=== PATIENT | female | born 2000 | race Caucasian/White ===

== ENCOUNTER 2023-01-23 08:41 | Outpatient (OUT) | payer OTHER, SELFPAY ==
--- NOTE | 2023-01-23 08:50 | US_ITS ---
The [address] [address] Patient Name: RICARDO ATKINS MRN: [id number] date: 2000 Sex: F Assigned Patient Location: US Current Patient Location: US Accession/Order Number: [id number] Exam Date: 01/23/2023 09:00 Report Date: 01/23/2023 10:06 At the request of: EMILIA FISCHER Procedure: US renal BI EXAM: US renal BI HISTORY: Kidney Stone N20.0 COMPARISON: CT abdomen and pelvis 08/26/2022. TECHNIQUE: Real-time ultrasound imaging of the kidneys and bladder. FINDINGS: Unremarkable bladder. The right and left kidneys measure 10.8 and 12.7 cm. There is good corticomedullary differentiation bilaterally. Within the interpolar region of the left kidney there is a 1.2 x 1.5 x 1.4 cm cyst. Nonobstructing stone within the lower pole the left kidney measuring 0.5 x 0.4 x 0.3 cm. No renal collecting system dilatation bilaterally. IMPRESSION: 1. Nonobstructing left renal stone. 2. Left renal cyst. Electronically authenticated by: SUSAN JAIME Date: 01/23/2023 10:06
--- NOTE | 2023-01-23 08:51 | XR_ITS ---
[address] [address] Patient Name: RICARDO ATKINS MRN: [id number] date: 2000 Sex: F Assigned Patient Location: US Current Patient Location: US Accession/Order Number: [id number] Exam Date: 01/23/2023 10:04 Report Date: 01/23/2023 13:27 At the request of: EMILIA FISCHER Procedure: XR abdomen 1V EXAM: XR abdomen 1V HISTORY: Kidney Stone N20.0 COMPARISON: None. TECHNIQUE: AP view of the abdomen. FINDINGS: Nonobstructive bowel gas pattern is noted. There is no suspicious calcification. The osseous structures are intact. IMPRESSION: Nonobstructive bowel gas pattern. Electronically authenticated by: ANDREWS BARAJAS Date: 01/23/2023 13:27
== END 2023-01-23 08:42 ==
LOC: US 08:44
PROVIDERS: PCP Family Medicine; Visit Provider Urology
DX: N20.0 Calculus of kidney (principal)
CPT/HCPCS: 74018; 76775

== ENCOUNTER 2023-03-29 09:09 | Outpatient (OUT) | payer OTHER, SELFPAY ==
[2023-03-29 10:18] LABS: Uric Acid 6.7 mg/dL (2.6-6.0)
[2023-03-30 11:09] LABS: PTH, Intact 89 pg/mL (15-65)
== END 2023-03-29 09:10 | disposition home or self-care (01) ==
LOC: LAB 09:11
PROVIDERS: Visit Provider Urology
DX: N20.0 Calculus of kidney (principal); R31.0 Gross hematuria; N28.1 Cyst of kidney, acquired
CPT/HCPCS: 36415; 83970; 84550

== ENCOUNTER 2023-04-20 09:34 | Outpatient (OUT) | payer OTHER, SELFPAY ==
[2023-04-20 10:42] LABS: Basophils Absolute Auto 0.1 10^3/uL (0.0-0.1); Basophils Percent Auto 1.4 % (0.2-2.0); Eosinophils Absolute Auto 0.2 10^3/uL (0.0-0.7); Eosinophils Percent Auto 5.5 % (0.9-7.0); Hematocrit 35.2 % (36.0-48.0); Hemoglobin 11.7 g/dL (12.0-16.0); Immature Granulocytes Abs Auto 0.01 10^3/uL (0.00-0.03); Immature Granulocytes Pct Auto 0.3 % (0.0-0.5); Lymphocytes Absolute Auto 1.4 10^3/uL (1.2-3.8); Mean Corpuscular HGB Conc 33.2 g/dL (29.9-35.2); Mean Corpuscular Hemoglobin 29.4 pg (26.7-34.0); Mean Corpuscular Volume 88.4 fL (81.0-99.0); Mean Platelet Volume 9.4 fL (9.5-13.5); Monocytes Absolute Auto 0.4 10^3/uL (0.3-0.8); Monocytes Percent Auto 9.9 % (1.7-12.0); Neutrophils Absolute Auto 1.6 10^3/uL (1.4-6.5); Neutrophils Percent Auto 43.9 % (43.0-75.0); Platelet Count 156 10^3/uL (150-450); Red Blood Count 3.98 10^6/uL (4.20-5.40); Red Cell Distribution Width 13.2 % (11.0-15.0); White Blood Count 3.6 10^3/uL (4.0-11.0)
[2023-04-20 11:04] LABS: Estimated Average Glucose 103 mg/dL; Glycohemoglobin A1C 5.2 % (4.5-6.2)
[2023-04-20 11:30] LABS: Alanine Aminotransferase 26 U/L (14-59); Albumin Level 3.7 g/dL (3.4-5.0); Alkaline Phosphatase 101 U/L (46-116); Anion Gap 11.8; Aspartate Amino Transferase 16 U/L (15-37); BUN Creatinine Ratio 19.6; Bilirubin Total 0.5 mg/dL (0.2-1.0); Calcium 9.9 mg/dL (8.5-10.1); Carbon Dioxide 24.3 mmol/L (21.0-32.0); Chloride 104 mmol/L (98-107); Cholesterol 198 mg/dL (<=200); Estimated GFR (African America >60 (>=60); Estimated GFR (Non-African Ame >60 (>=60); Globulin 3.6 g/dL; Glucose 88 mg/dL (74-106); HDL Cholesterol 33 mg/dL (40-60); Potassium 4.1 mmol/L (3.5-5.1); Sodium 136 mmol/L (136-145); Thyroid Stimulating Hormone 4.212 uIU/mL (0.358-3.740); Total Protein 7.3 g/dL (6.4-8.2); Triglycerides 239 mg/dL (<=150); VLDL CHOLESTEROL 47.8 mg/dL
[2023-04-20 12:02] LABS: Free T4 0.87 ng/dL (0.76-1.46)
[2023-04-21 07:08] LABS: HCV Ab Non Reactive (Non Reactive); HIV Ab/p24 Ag Screen Non Reactive (Non Reactive)
== END 2023-04-20 09:35 | disposition home or self-care (01) ==
LOC: LAB 09:36
PROVIDERS: PCP Nurse Practitioner Primary Care; Visit Provider Nurse Practitioner Primary Care
DX: Z00.00 Encounter for general adult medical examination without abnormal findings (principal); Z11.59 Encounter for screening for other viral diseases; Z13.6 Encounter for screening for cardiovascular disorders; Z13.29 Encounter for screening for other suspected endocrine disorder; Z11.4 Encounter for screening for human immunodeficiency virus [HIV]
CPT/HCPCS: 36415; 80053; 80061; 83036; 84439; 84443; 85025; 86803; 87389

== ENCOUNTER 2023-04-29 19:36 | Emergency (ER) | payer OTHER, SELFPAY ==
[2023-04-29 19:53] VITALS: BP 170/95; PULSE 108; RESP 18; TEMP 36.6; O2SAT 97; BMI 42.0
[2023-04-29 20:02] VITALS: PULSE 100
--- NOTE | 2023-04-29 20:05 | XR_ITS ---
The [address] [address] Patient Name: RICARDO ATKINS MRN: [id number] date: 2000 Sex: F Assigned Patient Location: ER Current Patient Location: ER Accession/Order Number: [id number] Exam Date: 04/29/2023 19:55 Report Date: 04/29/2023 21:09 At the request of: AZAEL BATEMAN Procedure: XR foot RT min 3V EXAM: XR ankle RT min 3V, XR foot RT min 3V HISTORY: injury COMPARISON: None. TECHNIQUE: 3 views of the right ankle. 3 views of the right foot. FINDINGS: Overall bony architecture is normal. Ankle mortise relationships are intact. Articulations of the foot are intact. Forefoot soft tissue swelling is noted. XR/XR foot RT min 3V IMPRESSION: No evidence for acute fracture or dislocation. Electronically authenticated by: Alla BRICEÑO Date: 04/29/2023 21:09
--- NOTE | 2023-04-29 20:05 | XR_ITS ---
The [address] [address] Patient Name: RICARDO ATKINS MRN: [id number] date: 2000 Sex: F Assigned Patient Location: ER Current Patient Location: ER Accession/Order Number: [id number] Exam Date: 04/29/2023 19:55 Report Date: 04/29/2023 21:09 At the request of: AZAEL BATEMAN Procedure: XR ankle RT min 3V EXAM: XR ankle RT min 3V, XR foot RT min 3V HISTORY: injury COMPARISON: None. TECHNIQUE: 3 views of the right ankle. 3 views of the right foot. FINDINGS: Overall bony architecture is normal. Ankle mortise relationships are intact. Articulations of the foot are intact. Forefoot soft tissue swelling is noted. XR/XR ankle RT min 3V IMPRESSION: No evidence for acute fracture or dislocation. Electronically authenticated by: Alla BRICEÑO Date: 04/29/2023 21:09
--- NOTE | 2023-04-29 20:06 | ED.LOWEXI1 ---
HPI - Extremity Injury (Lower) General Chief Complaint: Extremity Injury, Lower Stated Complaint: [facility] Lower Extremity Injury Time Seen by Provider: 04/29/23 20:00 Mode of arrival: walk-in History of Present Illness HPI Narrative: patient describes leaning against a table at work. The table move and she fell. She injured her right ankle/foot. states pain comes and goes. She does have lymphedema of the RLE. She experiences pain mainly with weight bearing or ROM. Denies other injury MD complaint: Reports ankle injury and foot injury Related Data Allergies Allergy/AdvReac Type Severity Reaction Status Date / Time No Known Drug Allergies Allergy Verified 04/29/23 19:57 Review of Systems ROS Status of ROS 10 or more systems reviewed and unremarkable except as noted in history and below PFSH PFS Social History Smoking status: Never smoker Exam Constitutional Vital Signs, click to edit/add: Last Vital Signs Temp 98 F 04/29/23 19:53 Pulse 100 H 04/29/23 20:02 Resp 18 04/29/23 19:53 BP 170/95 H 04/29/23 19:53 Pulse Ox 97 04/29/23 19:53 O2 Del Method Room Air 04/29/23 19:53 Common normals: no apparent distress, oriented x3, healthy appearing, alert and well nourished Eye Common normals: PERRL and EOMs intact bilaterally Respiratory Common normals: normal respiratory effort, no retractions and no use of accessory muscles Cardio Common normals: regular rate and regular rhythm Extremity Other: lymphedema RLE. right ankle and foot are nontender. Not discolored. Does have mild pain of the ankle with ROM Neuro Common normals: oriented x3, CN's II-XII intact bilaterally, moves all extremities, no focal motor deficits and no sensory deficits noted Psych Appearance: grossly normal Course Vital Signs Vital signs: Vital Signs Temperature 98 F 04/29/23 19:53 Pulse Rate 108 H 04/29/23 19:53 Respiratory Rate 18 04/29/23 19:53 Blood Pressure 170/95 H 04/29/23 19:53 Pulse Oximetry 97 04/29/23 19:53 Oxygen Delivery Method Room Air 04/29/23 19:53 Temperature 98 F 04/29/23 19:53 Pulse Rate 100 H 04/29/23 20:02 Respiratory Rate 18 04/29/23 19:53 Blood Pressure 170/95 H 04/29/23 19:53 Pulse Oximetry 97 04/29/23 19:53 Oxygen Delivery Method Room Air 04/29/23 19:53 MDM - Extremity Injury (Lower) MDM Narrative Medical decision making narrative: presents after fall at work and injury to her right foot/ankle. No obvious acute swelling. She does have chronic swelling from lymphedema. No discoloration or tenderness. Does have pain with ROM. xrays neg. Patient discharged home with diagnosis of ankle sprain. Minor sprain. can follow up prn Discharge Plan Discharge Chief Complaint: Extremity Injury, Lower Clinical Impression: Ankle sprain and strain Patient Disposition: Home, Self-Care Instructions: Ankle Sprain (ED) Additional Instructions: follow up with Industrial medicine if pain increases. use ibuprofen or similar for pain Stand Alone Forms: Portal Instructions Referrals: MIKAELA MARCH APRN [Primary Care Provider] - 1 week
== END 2023-04-29 22:24 | disposition home or self-care (01) ==
PROVIDERS: Emergency Provider Internal Medicine; PCP Nurse Practitioner Primary Care
DX: S93.401A Sprain of unspecified ligament of right ankle, initial encounter (principal); S96.911A Strain of unspecified muscle and tendon at ankle and foot level, right foot, initial encounter; W19.XXXA Unspecified fall, initial encounter
CPT/HCPCS: 73610; 73630; 99284

== ENCOUNTER 2023-05-09 22:17 | Outpatient (OUT) | payer OTHER, SELFPAY | END 2023-05-09 22:18 | disposition home or self-care (01) | LOC: SLEEP 22:17 | PROVIDERS: PCP Nurse Practitioner Primary Care; Visit Provider Nurse Practitioner Primary Care | DX: G47.33 Obstructive sleep apnea (adult) (pediatric) (principal) | CPT/HCPCS: 95810 ==

== ENCOUNTER 2023-06-07 11:44 | Outpatient (OUT) | payer OTHER, SELFPAY ==
[2023-06-07 13:10] LABS: Calcium Urine Random 24.8 mg/dL (5.1-21.0); Creatinine Urine Random 178.37 mg/dL (20.00-300.00); Sodium Urine Random 181 mmol/L (30-90)
[2023-06-07 13:12] LABS: Calcium 24 Hour Urine 192.2 mg/24hr (100.0-300.0); Sodium 24 Hour Urine 140 mmol/24h (40-220); Total Volume 24 Hour Urine 775 mL/24hr
[2023-06-08 10:12] LABS: Magnesium, U 3.5 mg/dL (Not Estab.); Magnesium,Urine 24hr 27.1 mg/24 hr (12.0-293.0); Phosphorus, Urine 120.4 mg/dL (Not Estab.); Phosphorus,Urine 24h 933 mg/24 hr (261-1078); Uric Acid,Urine 24hr 883.5 mg/24 hr (173.7-902.1)
[2023-06-11 17:08] LABS: Citric Acid, U, 24hr 463 mg/24 hr (320-1240); Citric Acid, Urine 598 mg/L (Undefined)
[2023-06-12 15:09] LABS: Oxalates, Urine 45 mg/L (Undefined); Oxalates, Urine 24hr 35 mg/24 hr (4-31)
== END 2023-06-07 11:45 | disposition home or self-care (01) ==
LOC: LAB 11:44
PROVIDERS: PCP Nurse Practitioner Primary Care; Visit Provider Urology
DX: N20.0 Calculus of kidney (principal)
CPT/HCPCS: 82340; 82507; 82570; 83735; 83945; 84105; 84300; 84560

== ENCOUNTER 2023-06-08 08:33 | Outpatient (OUT) | payer OTHER, SELFPAY ==
[2023-06-08 09:57] LABS: BUN Creatinine Ratio 21.4; Calcium 9.9 mg/dL (8.5-10.1); Carbon Dioxide 25.1 mmol/L (21.0-32.0); Chloride 104 mmol/L (98-107); Estimated GFR (African America >60 (>=60); Estimated GFR (Non-African Ame >60 (>=60); Free T3 3.26 pg/mL (2.18-3.98); Glucose 94 mg/dL (74-106); Potassium 4.1 mmol/L (3.5-5.1); Sodium 138 mmol/L (136-145); Thyroid Stimulating Hormone 8.635 uIU/mL (0.358-3.740)
[2023-06-08 10:24] LABS: Free T4 0.77 ng/dL (0.76-1.46)
[2023-06-09 04:07] LABS: FSH 65.4 mIU/mL (.); Luteinizing Hormone(LH) 22.7 mIU/mL (.); Progesterone 0.2 ng/mL (.); Prolactin 16.2 ng/mL (4.8-23.3)
[2023-06-10 14:07] LABS: ACTH, Plasma 29.1 pg/mL (7.2-63.3)
[2023-06-12 06:18] LABS: IGF-1 194 ng/mL (101-347)
[2023-06-12 12:09] LABS: Anti-Mullerian Hormone (AMH) <0.015 ng/mL (.)
[2023-06-14 01:07] LABS: Estrogens, Total 99 pg/mL (.)
== END 2023-06-08 08:34 | disposition home or self-care (01) ==
LOC: LAB 08:35
PROVIDERS: PCP Nurse Practitioner Primary Care; Visit Provider Internal Medicine
DX: E55.9 Vitamin D deficiency, unspecified (principal); I10 Essential (primary) hypertension; Q96.9 Turner's syndrome, unspecified; E03.9 Hypothyroidism, unspecified
CPT/HCPCS: 36415; 80048; 82024; 82306; 82533; 82672; 83001; 83002; 83003; 84144; 84146; 84305; 84439; 84443; 84481; 99999

== ENCOUNTER 2023-06-18 08:46 | Outpatient (OUT) | payer OTHER, SELFPAY ==
--- NOTE | 2023-06-18 08:52 | US_ITS ---
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 COMPARISON: None. TECHNIQUE: Transabdominal scanning was performed FINDINGS: Thinning of the pelvis demonstrates uterus to be anteverted and measures 3.3 x 2.2 x 1.3 cm. Endometrial complex measures 2 mm. Right ovary measures 1 x 1 x 1.6 cm. No masses are noted. Color-flow is noted. Left ovary measure 2 x 1.1 x 1 cm. Color-flow is noted. No masses are noted. No fluid is noted in the cul-de-sac. US/US pelvis IMPRESSION: Normal ultrasound of the pelvis. Electronically authenticated by: MARGARITA GALLOWAY Date: 06/18/2023 09:46
== END 2023-06-18 08:47 | disposition home or self-care (01) ==
LOC: US 08:46
PROVIDERS: PCP Nurse Practitioner Primary Care; Visit Provider Internal Medicine
DX: Q96.9 Turner's syndrome, unspecified (principal); I10 Essential (primary) hypertension; E02 Subclinical iodine-deficiency hypothyroidism
CPT/HCPCS: 76856

== ENCOUNTER 2023-07-21 15:30 | Emergency (ER) | payer OTHER, SELFPAY ==
[2023-07-21 15:35] VITALS: BP 140/91; PULSE 103; RESP 16; TEMP 36.7; O2SAT 100; BMI 41.8
--- NOTE | 2023-07-21 15:46 | ED.GENADUL1 ---
HPI - General Adult General Chief complaint: Wound/Laceration Stated complaint: CUT FINGER Time Seen by Provider: 07/21/23 15:38 Source: patient and family Mode of arrival: walk-in Limitations: no limitations History of Present Illness HPI narrative: 22-year-old female presents with chief complaint of laceration to the distal right thumb. She excellently cut it on a slicer while at work just prior to arrival. No active bleeding. Wound appears superficial. Patient's on known for her last tetanus shot. Related Data Previous Rx's Medication Instructions Recorded cephalexin 500 mg capsule 500 mg PO BID 10 days #20 caps 07/21/23 Allergies Allergy/AdvReac Type Severity Reaction Status Date / Time No Known Drug Allergies Allergy Verified 07/21/23 15:35 Review of Systems ROS Narrative All Systems are negative except as noted/marked.All systems reviewed and otherwise negative PFSH PFS Social History Smoking status: Never smoker Exam Narrative Exam Narrative: Nurses note and vital signs reviewed and patient is not hypoxic. General: The patient appears well and in no apparent distress. Patient is resting comfortably on cart. Skin: Warm, dry, no pallor noted. There is no rash noted. Head: Normocephalic, atraumatic Eye: Normal conjunctiva, no drainage, EOMI. PERRL Ears, Nose, Mouth, and Throat: oral mucosa is moist. Nares patent. Mouth without vesicles. Ear canals patent. Tm's without Erythema Cardiovascular: Regular Rate and Rhythm Respiratory: Patient is in no distress, no accessory muscle use, lungs are clear to auscultation, no wheezing, rales or rhonchi Back: non-tender, no CVA tenderness bilaterally to percussion. GI: Normal bowel sounds, no tenderness to palpation, no masses appreciated. No rebound, guarding, or rigidity noted. Musculoskeletal:Superficial abrasion less than 1 cm to the right distal thumb. The patient has no evidence of calf tenderness, no pitting edema, symmetrical pulses noted bilaterally Neurological: A&O x4, normal speech Psychiatric: Cooperative Constitutional Vital Signs, click to edit/add: Last Vital Signs Temp 98.1 F 07/21/23 15:35 Pulse 103 H 07/21/23 15:35 Resp 16 07/21/23 15:35 BP 140/91 07/21/23 15:35 Pulse Ox 100 07/21/23 15:35 O2 Del Method Room Air 07/21/23 15:35 Course Vital Signs Vital signs: Vital Signs Temperature 98.1 F 07/21/23 15:35 Pulse Rate 103 H 07/21/23 15:35 Respiratory Rate 16 07/21/23 15:35 Blood Pressure 140/91 07/21/23 15:35 Pulse Oximetry 100 07/21/23 15:35 Oxygen Delivery Method Room Air 07/21/23 15:35 Temperature 98.1 F 07/21/23 15:35 Pulse Rate 103 H 07/21/23 15:35 Respiratory Rate 16 07/21/23 15:35 Blood Pressure 140/91 07/21/23 15:35 Pulse Oximetry 100 07/21/23 15:35 Oxygen Delivery Method Room Air 07/21/23 15:35 Medical Decision Making MDM Narrative Medical decision making narrative: Patient presented with a chief complaint of an accidental abrasion, laceration with a slicer while at work. Lacerations less than 1 cm. Superficial skin avulsion is noted. No active bleeding. Area was cleaned with Hibiclens normal saline. Glue was used to reapproximate the area. Patient was updated tetanus immunization. Patient instructed to follow-up with occupational medicine. Patient agrees with plan of care. Verbalized understanding. All questions answered. Discharge Plan Discharge Chief Complaint: Wound/Laceration Clinical Impression: Avulsion of skin Patient Disposition: Home, Self-Care Time of Disposition Decision: 15:59 Condition: Good Prescriptions / Home Meds: New cephalexin 500 mg capsule 500 mg PO BID 10 Days Qty: 20 0RF Instructions: Skin Adhesive Care (ED) Additional Instructions: follow up with occupational health in one week Stand Alone Forms: Portal Instructions Referrals: MIKAELA MARCH APRN [Primary Care Provider] - 1 week
[2023-07-21] MEDS: ADACEL DIPH,PERTUSS(ACELL),TET VAC/PF 0.5 ML ADULT SYRINGE IM (15:57)
== END 2023-07-21 16:15 | disposition home or self-care (01) ==
PROVIDERS: Emergency Provider Emergency Medicine; PCP Nurse Practitioner Primary Care
DX: S61.011A Laceration without foreign body of right thumb without damage to nail, initial encounter (principal); Z23 Encounter for immunization; W26.8XXA Contact with other sharp object(s), not elsewhere classified, initial encounter
CPT/HCPCS: 12001; 90471; 90715; 99284

== ENCOUNTER 2023-07-26 09:52 | Outpatient (OUT) | payer OTHER, SELFPAY ==
[2023-07-26 10:27] LABS: Cholesterol 233 mg/dL (<=200); HDL Cholesterol 39 mg/dL (40-60); Triglycerides 156 mg/dL (<=150); VLDL CHOLESTEROL 31.2 mg/dL
== END 2023-07-26 09:53 | disposition home or self-care (01) ==
LOC: LAB 09:53
PROVIDERS: PCP Nurse Practitioner Primary Care; Visit Provider Nurse Practitioner Primary Care
DX: E78.2 Mixed hyperlipidemia (principal); E78.1 Pure hyperglyceridemia
CPT/HCPCS: 36415; 80061

== ENCOUNTER 2023-08-22 10:03 | Outpatient (OUT) | payer OTHER, SELFPAY ==
--- NOTE | 2023-08-22 10:06 | XR_ITS ---
The [address] [address] Patient Name: RICARDO ATKINS MRN: [id number] date: 2000 Sex: F Assigned Patient Location: LAB Current Patient Location: LAB Accession/Order Number: [id number] Exam Date: 08/22/2023 10:18 Report Date: 08/22/2023 10:34 At the request of: EMILIA FISCHER Procedure: XR abdomen 1V EXAMINATION: XR abdomen 1V HISTORY: kidney stone COMPARISON: XR abdomen 01/23/2023 FINDINGS: KIDNEY/URETER - RIGHT: No visible renal or ureteral calcifications. KIDNEY/URETER - LEFT: No visible renal or ureteral calcifications. PELVIS: No visible ureteral calcifications. BOWEL: No abnormal dilation or deviation. BONES: No acute abnormality. OTHER: Negative. No abnormal gaseous collections. XR/XR abdomen 1V IMPRESSION: 1. No visible urinary tract calculi. Electronically authenticated by: DARIEL CHRISTINE Date: 08/22/2023 10:34
--- OUTSIDE RECORDS SUMMARY | 2023-08-22 10:06 | XMS_ITS | CCD ---
Author Name Unknown Address [address] [place] [address] Organization [facility] Care Team Providers Care Special Delivery Mail Carrier Name Role Phone Ilia Monson Unavailable ILIA MONSON Attending Unavailable SELF, SELF Referring Unavailable ILIA MONSON Attending Unavailable SELF, SELF Referring Unavailable Ilia Monson Primary Care Provider THAO TORRES Attending U navailable VICTORIA, LASHAE TREVINO Attending Unavailab alysa MONSON, ILIA BYNUM Referring Unavailab alysa MONSON, ILIA BYNUM Primary Care Unavailab le HASTINGS, LASHAE TREVINO Attending Unavailab le CAROL, ILIA BYNUM Primary Care Unavailab le HASTINGS, LASHAE TREVINO Attending Unavailab alysa MONSON, ILIA BYNUM Primary Care Unavailab Ilia Glover Primary Care Provider Ilia Cobb Primary Care Physician REZA, DR YOO Primary Care Unavailable ARELIS SERNA Attending Unavailable ARELIS SERNA Admitting Unavailable EMMETT, DR DARIEL Hernandez Consulting Unavailable ARELIS SERNA Consulting Unavailable REZA, DR YOO Primary Care Unavailable ARELIS SERNA Admitting Unavailable ARELIS SERNA Consulting Unavailable ARELIS SERNA Attending Unavailable CHRISTINE MANE Consulting Unavailable REZA, DR YOO Admitting Unavailable REZA, DR YOO Primary Care Unavailable HOUSE, DR YOO Consulting Unavailable REZA, DR YOO Attending Unavailable KAYCE SANDS Consulting Unavailable BERNARD Avery, DR HILL Admitting Unavailable REQUEST, DR GUZMAN LISTED Primary Care Unavaila ble BERNARD Avery, DR HILL Consulting Unavailable HAY ., DR HILL Attending Unavailable MATTHIEUBARAK TAVERA Attending Unavailable MATTHIEU, AHMAD F Admitting Unavailable Arelis Yip Attending Arelis Gonzales Referring Unavailable Arelis Yip Admitting Unavailable Arelis Yip Attending Unavailable Arelis Yip Attending Unavailable Ilia Cobb Referring Unavailable Arelis Yip Attending Unavailable Arelis Yip Attending Unavailable Arelis Yip Referring Unavailable Medications Current Medications Medication Drug Class(es) Dates Sig (Normalized) Sig (Original) 200 actuat albuterol 0.09 mg/actuat metered dose inhaler (14 sources) beta2-Adrenergic Agonist Start: 06-06-2018 take 1 puff(s) by inhalation every six hours as needed for wheezing albuterol 108 (90 Base) MCG/ACT Aero Soln inhaler Indications: Environmental and seasonal allergies Inhale 1 puff every 6 hours as needed for Wheezing. 1 Inhaler 2 06/06/2018 Active Start: 06-06-2018 albuterol 90 m cg/actuation inhaler Inhale 1 puff . 0 06/06/2018 Active Start: 06-06-2018 take 1 puff(s) by in halation every six hours as needed for wheezing albuterol 108 (90 Base) MCG/ACT Aero Soln inhaler Indications: Environmental and seasonal allergies Inhale 1 puff every 6 hours as needed for Wheezing. 1 Inhaler 2 06/06/2018 Active cholecalciferol 2000 unt oral tablet (12 sources) Vitamin D Start: 06-28-2018 take 1 tablet by mouth once daily Cholecalciferol (VITAMIN D3) 2000 units Tab Indications: Vitamin D deficiency Take 1 tablet by mouth daily. 30 tablet 11 06/28/2018 Active enalapril maleate 5 mg oral tablet (17 sources) Angiotensin Converting Enzyme Inhibitor Start: 10-27-2022 take 1 mg by mouth once daily enalapril 5 mg Tab mg tab(s), Oral, Daily Start Date: 10/27/22 Status: Ordered Start: 06-06-2018 take 1 tablet by dang th twice daily enalapril 5 MG Tab tablet Indications: Essential hypertension Take 1 tablet by mouth 2 times daily. 180 tablet 1 06/06/2018 Active hydrocortisone 10 mg/ml / neomycin 3.5 mg/ml / polymyxin b 54260 unt/ml otic suspension (8 sources) Aminoglycoside Antibacterial, Polymyxin-class Antibacterial, Corticosteroid Start: 06-06-2018 gnajucgd-osgdmzipe-ykjrtuyxh isone (CORTISPORIN) otic suspension Administer 4 drops into ears . 0 06/06/2018 Active Start: 06-06-2018 neomycin-polym yxin-hydrocortisone 3.5-62922-9 Suspension Indications: History of recurrent ear infection Place 4 drops in left ear 3 times daily. 1 Bottle 0 06/06/2018 Active levothyroxine sodium 0.075 mg oral tablet (3 sources) l-Thyroxine take 1 tablet by mouth once daily levothyroxine 75 MCG Tab tablet Take 75 mcg by mouth daily. 0 Active loratadine 10 mg oral tablet (4 sources) Start: 10-27-2022 take 1 mg by mouth once daily loratadine 10 mg Tab mg tab(s), Oral, Daily Start Date: 10/27/22 Status: Ordered Start: 06-20-2018 End: 06-20-2019 take 1 tablet by mouth once daily loratadine (CLARITIN) 10 mg tablet Indications: Environmental allergies Take 1 (one) tablet (10 mg total) by mouth daily . 30 tablet 5 06/20/2018 06/20/2019 Active melatonin 3 mg oral tablet (17 sources) Start: 10-27-2022 take 1 tablet by mouth once daily at bedtime as needed melatonin 3 mg Tab 3 mg = 1 tab(s), Oral, Once a day (at bedtime), PRN for insomnia, # 60 tab(s) Start Date: 10/27/22 Status: Ordered take 6 mg by mouth at bedtime ME LATONIN PO Take 6 mg by mouth at bedtime. 0 Active melatonin 1 mg T ab Take 6 mg by mouth . 0 Active take 6 mg by mouth at bedtime ME LATONIN PO Take 6 mg by mouth at bedtime. Active 24 hr metoprolol succinate 25 mg extended release oral tablet (10 sources) beta-Adrenergic Sesar Start: 10-27-2022 take 1 mg by mouth once daily metoprolol 25 mg ER Tab mg tab(s), Oral, Daily Start Date: 10/27/22 Status: Ordered Start: 08-30-2018 take 0.5 tablet by m outh once daily metoprolol succinate 25 MG tablet XL Indications: Essential hypertension , Tachycardia Take 0.5 tablets by mouth daily. 30 tablet 4 08/30/2018 Active Start: 08-30-2018 take 1 tablet by dang th every twenty-four hours metoprolol succinate (TOPROL-XL) 25 MG 24 hr tablet Take 12.5 mg by mouth . 0 08/30/2018 Active montelukast 10 mg oral tablet (17 sources) Leukotriene Receptor Antagonist Start: 10-27-2022 take 1 mg by mouth once daily montelukast 10 mg Tab mg tab(s), Oral, Daily Start Date: 10/27/22 Status: Ordered Start: 06-06-2018 take 1 tablet by dang th once daily montelukast 10 MG Tab tablet Indications: Anxiety and depression , Environmental and seasonal allergies Take 1 tablet by mouth daily. 90 tablet 1 06/06/2018 Active mupirocin 0.02 mg/mg topical ointment (15 sources) RNA Synthetase Inhibitor Antibacterial Start: 09-12-2018 End: 09-22-2018 mupirocin (BACTROBAN) 2 % ointment Indications: Abrasion of nose, initial encounter Apply 1 application topically daily Inside the left side of the nose three times a day for 10 days . 15 g 0 09/12/2018 09/22/2018 Active mupirocin 2 % Oi ntment ointment Apply 1 Application topically daily. 0 Active sertraline 50 mg oral tablet (17 sources) Serotonin Reuptake Inhibitor Start: 10-27-2022 take 1 mg by mouth once daily sertraline 50 mg Tab mg tab(s), Oral, Daily Start Date: 10/27/22 Status: Ordered Start: 06-06-2018 take 1.5 tablets by mouth once daily sertraline 50 MG Tab tablet Indications: Anxiety and depression Take 1.5 tablets by mouth daily. 135 tablet 1 06/06/2018 Active Start: 06-06-2018 sertraline (ZO LOFT) 50 MG tablet Take 75 mg by mouth . 0 06/06/2018 Active Vitamin D3 (3 sources) Start: 10-27-2022 Vitamin D3 Sta rt Date: 10/27/22 Status: Ordered Zofran ODT 4 mg Tab-Dis (2 sources) Start: 11-13-2022 take 1 tablet by mouth every eight hours as needed for nausea Zofran ODT 4 mg Tab-Dis 4 mg = 1 tab(s), Oral, q8hr, PRN Nausea/Vomiting, # 12 tab(s), Refills(s) 0, Pharmacy: [id number], 148, cm, 10/27/22 9:59:00 EDT, Height/Length Dosing, 94.6, kg, 10/27/22 9:59:00 EDT, Weight Dosing Start Date: 11/13/22 Status: Ordered Completed/Discontinued Medications Medication Drug Class(es) Dates Sig (Normalized) Sig (Original) Iohexol (1 source) Radiographic Contrast Agent Start: 08-08-2018 End: 08-08-2018 iohexol (OMNIPAQUE) 350 MG/ML injection 75 mL Sodium Chloride 0.9 % Ij Soln (1 source) Start: 08-08-2018 End: 08-08-2018 sodium chloride (PF) 0.9% injection 70 mL Problems Active Problems Problem Classification Problem Date Documented Da te Episodic/Chronic Abdominal pain (4 sources) Unspecified abdominal pain; Translations: [UNSPECIFIED ABDOMINAL PAIN] Onset: 11-13-2022 Episodic Asthma (3 sources) Asthma 10-27-2022 Chronic Calculus of urinary tract (15 sources) Kidney stone; Translations: [Calculus of kidney] Onset: 10-27-2022 Episodic Cardiac and circulatory congenital anomalies (7 sources) Congenital anomaly of aortic arch; 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] Onset: 08-30-2018 08-30-2018 Chronic Cardiac dysrhythmias (7 sources) Inappropriate sinus tachycardia; Translations: [Inappropriate sinus node tachycardia] Onset: 08-30-2018 08-30-2018 Chronic Cardiac dysrhythmias (1 source) Tachycardia Episodic Disorders of lipid metabolism (10 sources) Mixed hyperlipidemia; Translations: [Mixed hyperlipidemia] Onset: 08-30-2018 08-30-2018 Chronic Essential hypertension (5 sources) Benign essential hypertension; Translations: [Hypertensive disorder] Onset: 11-16-2022 10-27-2022 Chronic Genitourinary symptoms and ill-defined conditions (10 sources) Blood in urine; Translations: [Gross hematuria] Onset: 08-26-2022 Episodic Headache; including migraine (3 sources) Headache 10-27-2022 Episodic Nutritional deficiencies (2 sources) Vitamin D deficiency; Translations: [Vitamin D deficiency] Chronic Other aftercare (1 source) Other terminal clerk (current) drug therapy; Translations: [OTH YEAST STACKER CURRENT DRUG THERAPY] Onset: 11-16-2022 Episodic Other and ill-defined heart disease (3 sources) Heart disease 10-27-2022 Chronic Other congenital anomalies (10 sources) Umanzor syndrome; 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] Onset: 08-30-2018 08-30-2018 Chronic Other congenital anomalies (1 source) Umanzor's syndrome, unspecified; Translations: [TURNERS SYNDROME UNSPECIFIED] Onset: 11-16-2022 Chronic Other diseases of bladder and urethra (1 source) Unspecified urethral stricture, female; Translations: [UNSP URETHRAL STRICTURE FEMALE] Onset: 11-16-2022 Episodic Other diseases of kidney and ureters (2 sources) Acquired renal cyst without neoplastic change; Translations: [Cyst of kidney, acquired] Onset: 10-27-2022 Episodic Other diseases of kidney and ureters (3 sources) Cyst of kidney 10-27-2022 Episodic Other diseases of veins and lymphatics (1 source) Lymphedema; Translations: [Lymphedema] Chronic Other ear and sense organ disorders (3 sources) Hearing loss 10-27-2022 Chronic Other gastrointestinal disorders (1 source) Splenomegaly, not elsewhere classified; Translations: [SPLENOMEGALY NEC] Onset: 09-02-2022 Episodic Other injuries and conditions due to external causes (3 sources) Injury of head 10-27-2022 Episodic Other injuries and conditions due to external causes (1 source) Foreign body in bladder; Translations: [Foreign body in bladder, initial encounter] Onset: 11-13-2022 Episodic Other nervous system disorders (1 source) Other acute postprocedural pain; Translations: [OTHER ACUTE POSTPROCEDURAL PAIN] Onset: 11-15-2022 Episodic Other nutritional; endocrine; and metabolic disorders (14 sources) Morbid obesity; Translations: [Obesity, morbid, BMI 40.0-49.9] Onset: 06-06-2018 06-06-2018 Chronic Other screening for suspected conditions (not mental disorders or infectious disease) (2 sources) Thyroid function tests abnormal; Translations: [Abnormal thyroid blood test] Episodic Pulmonary heart disease (7 sources) Pulmonary hypertension; Translations: [Chronic pulmonary hypertension] Onset: 08-30-2018 08-30-2018 Chronic Residual codes; unclassified (7 sources) Obstructive sleep apnea syndrome; Translations: [Obstructive sleep apnea] Onset: 08-30-2018 08-30-2018 Chronic Unclassified (2 sources) Establish Care; Translations: [Establish Care] Onset: 06-06-2018 Urinary tract infections (1 source) Urinary tract infection, site not specified; Translations: [UTI SITE NOT SPECIFIED] Onset: 11-15-2022 Episodic Past or Other Problems Problem Classification Problem Date Documented Da te Episodic/Chronic Other ear and sense organ disorders (1 source) Excessive cerumen in ear canal ; Translations: [Excessive cerumen in left ear canal] Episodic Superficial injury; contusion (1 source) Abrasion of nose; Translations: [Abrasion of nose, initial encounter] Episodic Unclassified (2 sources) Abnormality of aortic arch branch Unclassified (1 source) Lymphedema of right lower extremity Unclassified (1 source) Patient encounter status Results Test Name Value Interpretation Reference Range Facility Reminderson 08-17-2023 Reminders - From: Bethany March To: [facility] - Recalls L[facility]; Sent: 03/14/2023 12:46:20 EDT Show up: 08/13/2023 12:45:00 EST Due Date/Time: 09/05/2023 12:46:00 EST Pt needs 24 hr Urine ([facility]), PTH and Uric Acid blood work done prior to appt on 09/19/23. Called pt and talked to her she states she turned [facility] in a couple months ago. I called [facility] due to not finding results and they state they do not have results. I faxed orders over to [facility] for RASHEEDA/KUB. Uric Acid and Citric Acid are in pt chart. Please advise next steps. - From: Joy Ortega ([facility] - [facility]) To: Arelis Yip MD; Sent: 08/16/2023 10:35:04 EST Show up: 08/16/2023 10:34:00 EST Subject: RE: - From: Arelis Yip MD To: [facility] - Rec[facility]; Sent: 08/17/2023 09:25:26 EST Show up: 08/17/2023 09:25:00 EST Subject: RE: Unfortunately, patient has to repeat 24 hour urine if we/they don't have any results Sobeida, FAB [facility] Lab Reportson 06-19-2023 Lab Reports [id number]# 1.00TIFF [facility] Provider Ord[place] 06-15-2023 Provider Orders [id number] #1.00OTGTIFF [facility] Provider Ord[place] 06-04-2023 Provider Orders [id number] [facility] 03-30-2023 Lab Reports [id number] #1.00CD:[address] [facility] Ambulatory Visit Summaryon 0 03-14-2023 Ambulatory Visit Summary KEYONA ATKINS Abe :2000 Visit Date:03/14/2023 Ambulatory Visit Instructions Your Diagnosis Renal stone Gross hematuria Renal cyst Tests Performed Urnls Dip Stick Auto w/o Microscopy POC 47025 US Renal -- Results Pending -- XR Abdomen 1 View -- Results Pending -- Please visit your patient portal for your results or contact your primary care physician. Your Care Team Attending Physician - Arelis Yip MD Primary Care Physician - Ilia Cobb DO Referring Physician - Arelis Yip MD This Is Your Medications List Contact prescribing physician if questions or concerns cholecalciferol (Vitamin D3) enalapril (enalapril 5 mg Tab) loratadine (loratadine 10 mg Tab) melatonin (melatonin 3 mg Tab) metoprolol (metoprolol 25 mg ER Tab) montelukast (montelukast 10 mg Tab) ondansetron (Zofran ODT 4 mg Tab-Dis) sertraline (sertraline 50 mg Tab) Procedures Performed Cystoscopic removal of ureteric stent (11/13/2022), Cystoscopic laser lithotripsy of ureteric calculus (11/08/2022), Urethral dilatation (11/08/2022), Tonsillectomy. Discharge Vitals Heart Rate (Peripheral) 109 Respiratory Rate 16 Blood Pressure 137/87 Height 148 cm Height 58 in Weight 94 kg Weight 206.8 lb BMI 42.91 What to do next Scheduled Follow-Up Appointments Sunday 8:45 AM EST With: Arelis Yip MD Where: [facility] Formson 03-14-2023 Forms [id number] #1.00CD:127 [facility] Patient Educationon 03-14-20 Patient Education Nephrology Dietary Guidelines to Help Prevent Kidney Stones Kidney stones are deposits of minerals and salts that form inside your kidneys. Your risk of developing kidney stones may be greater depending on your diet, your lifestyle, the medicines you take, and whether you have certain medical conditions. Most people can lower their chances of developing kidney stones by following the instructions below. Your dietitian may give you more specific instructions depending on your overall health and the type of kidney stones you tend to develop. What are tips for following this plan? Reading food labels ? Choose foods with no salt added or low-salt labels. Limit your salt (sodium) intake to less than 1,500 mg a day. ? Choose foods with calcium for each meal and snack. Try to eat about 300 mg of calcium at each meal. Foods that contain 200?500 mg of calcium a serving include: ? 8 oz (237 mL) of milk, calcium-fortifiednon -dairy milk, and calcium-fortifiedfru it juice. Calcium-fortified means that calcium has been added to these drinks. ? 8 oz (237 mL) of kefir, yogurt, and soy yogurt. ? 4 oz (114 g) of tofu. ? 1 oz (28 g) of cheese. ? 1 cup (150 g) of dried figs. ? 1 cup (91 g) of cooked broccoli. ? One 3 oz (85 g) can of sardines or mackerel. Most people need 1,000?1,500 mg of calcium a day. Talk to your dietitian about how much calcium is recommended for you. Shopping ? Buy plenty of fresh fruits and vegetables. Most people do not need to avoid fruits and vegetables, even if these foods contain nutrients that may contribute to kidney stones. ? When shopping for convenience foods, choose: ? Whole pieces of fruit. ? Pre-made salads with dressing on the side. ? Low-fat fruit and yogurt smoothies. ? Avoid buying frozen meals or prepared deli foods. These can be high in sodium. ? Look for foods with live cultures, such as yogurt and kefir. ? Choose high-fiber grains, such as whole-wheat breads, oat bran, and wheat cereals. Cooking ? Do not add salt to food when cooking. Place a salt shaker on the table and allow each person to add his or her own salt to taste. ? Use vegetable protein, such as beans, textured vegetable protein (TVP), or tofu, instead of meat in pasta, casseroles, and soups. Meal planning ? Eat less salt, if told by your dietitian. To do this: ? Avoid eating processed or pre-made food. ? Avoid eating fast food. ? Eat less animal protein, including cheese, meat, poultry, or fish, if told by your dietitian. To do this: ? Limit the number of times you have meat, poultry, fish, or cheese each week. Eat a diet free of meat at least 2 days a week. ? Eat only one serving each day of meat, poultry, fish, or seafood. ? When you prepare animal protein, cut pieces into small portion sizes. For most meat and fish, one serving is about the size of the palm of your hand. ? Eat at least five servings of fresh fruits and vegetables each day. To do this: ? Keep fruits and vegetables on hand for snacks. ? Eat one piece of fruit or a handful of berries with breakfast. ? Have a salad and fruit at lunch. ? Have two kinds of vegetables at dinner. ? Limit foods that are high in a substance called oxalate. These include: ? Spinach (cooked), rhubarb, beets, sweet potatoes, and Canadian chard. ? Peanuts. ? Potato chips, maldivian fries, and baked potatoes with skin on. ? Nuts and nut products. ? Chocolate. ? If you regularly take a diuretic medicine, make sure to eat at least 1 or 2 servings of fruits or vegetables that are high in potassium each day. These include: ? Avocado. ? Banana. ? [place], prune, carrot, or tomato juice. ? Baked potato. ? Cabbage. ? Beans and split peas. Lifestyle ? Drink enough fluid to keep your urine pale yellow. This is the most important thing you can do. Spread your fluid intake throughout the day. ? If you drink alcohol: ? Limit how much you use to: ? 0?1 drink a day for women who are not . ? 0?2 drinks a day for men. ? Be aware of how much alcohol is in your drink. In the [place] one drink equals one 12 oz bottle of beer (355 mL), one 5 oz glass of wine (148 mL), or one 1? oz glass of hard liquor (44 mL). ? Lose weight if told by your health care provider. Work with your dietitian to find an eating plan and weight loss strategies that work best for you. General information ? Talk to your health care provider and dietitian about taking daily supplements. You may be told the following depending on your health and the cause of your kidney stones: ? Not to take supplements with vitamin C. ? To take a calcium supplement. ? To take a daily probiotic supplement. ? To take other supplements such as magnesium, fish oil, or vitamin B6. ? Take vxlg-fhk-varqzbd and prescription medicines only as told by your health care provider. These include supplements. What foods should I limit? Limit your in (more content not included)... [facility] Reminderson 03-14-2023 Reminders - From: Kari Stanton To: LUCINDA - Katia Yip; Sent: 03/14/2023 09:53:04 EDT Show up: 08/19/2023 09:52:00 EST Subject: RASHEEDA/KUB/ PTH/Urice acid Due Date/Time: 08/19/2023 09:53:00 EST Reminder/Recall to be completed prior to patients 6m follow up with Dr Yip on 09/19/23 [facility] Urology Office/Clinic Noteon 03-14-2023 Urology Office/Clinic Note Chief Complaint S/P Ureteroscopy RASHEEDA/KUB HPI Staff S/P Cysto/Lt RG/Laser Litho/Stone Extraction & Lt Stent Placement w/UD done11/08/22. Stent was then removed 11/13/22. Pt did go to [place] [facility] following stent removal due to nausea and pain. Was Tx'd with IV Zofran & IV Toradol. Pt was then sent home with Cipro & Toradol script. No C&S performed at that time. Renal US 01/23/23 KUB 01/23/23 Denies flank pain. Denies pain/burning and visible blood in urine. Denies any concerns at this time. History of Present Illness Tests reviewed: reviewed UA, RASHEEDA and KUB. I have reviewed the previous health record information and history for this patient from . I have reviewed and verified the staff HPI to be accurate for this encounter. There have been no associated fever, chills, flank pain, or blood in the urine. Denies any urinary infections since last encounter. Review of Systems PHQ Score Initial Depression Screen Score: 0 ROS - Provider Constitutional: denies weight loss, denies hot flashes. Eyes: denies eye problems. Gastrointestinal: denies nausea, denies vomiting. Cardiovascular: denies chest pain or angina. Integumentary: no dryness Musculoskeletal: denies musculoskeletal symptoms. ENMT: denies otolaryngeal symptoms. Respiratory: no shortness of breath. Heme/Lymph: denies easy bleeding tendency, denies easy bruising tendency. Psychiatric: no confusion, no anxiety. Genitourinary: See HPI. Physical Exam Vitals & Measurements HR: 109(Peripheral) RR: 16 BP: 137/87 HT: 58 in HT: 148 cm WT: 94 kg WT: 206.8 lb BMI: 42.91 General Appearance: alert , no acute distress, well nourished, well developed female. Assessment/Plan Keyona is a 22 yo female who was referred by Dr. Cobb for gabriella hematuria and renal stone. Pt is here with her mom. 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 Has had anesthesia before, did well. Asthma is under control. 1. Renal stone (N20.0: Calculus of kidney) CT AP w/wo con 08/26/22 @[facility] - Nonobstructing LLP stone 7.5 mm. 1-2 mm LUP stone. An upper pole left simple renal cyst 1.7 cm. No hydronephrosis. -Skin to stone distance 13 cm. HU 440. Mild inferior rotation of kidney S/p 11/08/22 Cysto/Lt RPG, Ureteroscopy w/ Laser Lithotripsy, stone extraction, and stent placement 11/13/22 Stent removed RASHEEDA 01/23/23 - nonobstructing Lt renal stone 0.5 x 0.4 x 0.3 cm (on review, mild calcification at interface vs stone) KUB 02/02/23- negative for stones and hydro Stone Analysis - CaOx Di 90%, CaOx mono 5%, Hydroxyapatite 5% Post stent removal had flank pain, resolved with toradol and abx however UCx was not sent. Urine pH 5.5. Denies self/family hx of stones. Not having pain. Discussed the stone analysis with pt. Discussed that the pt needs to drink more water. Pt states she has had a few cups of water but mostly soda. Advised pt to increase water intake and adding lemon juice. Pt and mother state that they never got the metabolic workup kit in the mail. Will mail kit to pt again, advised pt to call our office if she does not receive the kit after 1-2 weeks. Discussed having a repeat KUB and RASHEEDA for continued surveillance of stones. -PTH and Uric Acid Blood work to complete serum metabolic workup -24 hr urine litholink -Dietary Modifications discussed -RASHEEDA and KUB in 6 mos All questions/concerns were discussed. Pt to call the office if she encounters any issues prior. Pt acknowledges understanding. 2. Gross hematuria (R31.0: Gross hematuria) UA today negative for blood, shows trace leuks. Probably from the stone, rare chance of malignancy. Pt denies any blood in urine. -Cont monitoring 3. Renal cyst (N28.1: Cyst of kidney, acquired) See #1. Simple cyst does not require surveillance. I spent 30 minutes today with the patient: reviewing tests in preparation to see and discuss them with the patient, obtaining and reviewing external separately obtained history, documenting clinical information in the electronic health records, and care coordination. Over half the time was spent performing a medical exam and evaluation, and counseling and educating the patient/family, and ordering tests in caring for the patient. Follow-up With When Contact Information Phi MTZ, Arelis Velazquez, URL, URO In 6 months Additional Instructions: w/ KUB and RASHEEDA and 24 hr urine Patient Education Dietary Guidelines to Help Prevent Kidney Stones I, Bethany March, personally scribed for Dr. Yip on 03/14/2023 10:03:47. . Documentation recorded by the scribe, Bethany March, accurately reflects the services(s) I performed and decisions made by me. Authenticated by Dr. Yip on 03/14/2023 10:37:38. Problem List/Past Medical History Ongoing Asthma Deafness Gross hematuria Head ache Head injury Heart disease Hypertension Kidney stone Renal cyst Renal stone Historical No qualifying data Procedure/Surgical H (more content not included)... Normal [facility] Comment on above: Result Comment: Elec tronically Signed By: Arelis Yip MD\.br\Date and Time Signed: 03/14/23 10:44 EDT\.br\Electronically Co-Signed By: Bethany March\.br\Date and Time Co-Signed: 03/14/23 10:04 EDT RAD - MISCon 01-23-2023 RAD - MISC [id number] #1.00CD:[address] [facility] RAD - Ultrasound Reporton RAD - Ultrasound Report [id number]# 1.00CD:[address] [facility] ED Note-Physicianon 01-18-20 ED Note-Physician [id number] #1.00CD:[address] [facility] CALCULI, URINARYon 3 2,[address] [facility] Comment on above: Performed By: #### C ALCULI #### [facility] [address] [place] [address] Dr. Graciela Paz Ammonium Acid Urate Normal [facility] Comment on above: Performed By: #### C ALCULI #### [facility] [address] [address] [address] Graciela Paz Bilirubin Ql (U) Normal [facility] Comment on above: Performed By: #### C ALCULI #### [facility] [address] [address] [address] Graciela Paz Ca Oxalate Dihydrate 90 % Normal [facility] Comment on above: Performed By: #### C ALCULI #### [facility] [address] [address] [address] Graciela Paz CaHPO4 (Brushite) [place] [facility] Comment on above: Performed By: #### C ALCULI #### [facility] [address] [address] [address] Graciela Paz Calcium Bilirubinate [facility] Comment on above: Performed By: #### C ALCULI #### [facility] [address] [address] [address] Graciela Paz Calcium Carbonate Normal [facility] Comment on above: Performed By: #### C ALCULI #### [facility] [address] [address] [address] Graciela Paz Calcium Oxalate Monohydrate 5 % [facility] Comment on above: Performed By: #### C ALCULI #### [facility] [address] [address] [address] Graciela Paz Calcium Palmitate Normal [facility] Comment on above: Performed By: #### C ALCULI #### [facility] [address] [address] [address] Graciela Paz Calcium Phosphate Normal [facility] Comment on above: Performed By: #### C ALCULI #### [facility] [address] [address] [address] Graciela Paz Calcium Stearate Normal [facility] Comment on above: Performed By: #### C ALCULI #### [facility] [address] [address] [address] Graciela Paz Carbonate Apatite Normal [facility] Comment on above: Performed By: #### C ALCULI #### [facility] [address] [address] [address] Graciela Paz Cellular Material Normal [facility] Comment on above: Performed By: #### C ALCULI #### [facility] [address] [address] [address] Graciela Paz Cholesterol [facility] Comment on above: Performed By: #### C ALCULI #### [facility] [address] [address] [address] Graciela Paz Color (U) Nolasco [facility] Comment on above: Performed By: #### C ALCULI #### [facility] [address] [address] [address] Graciela Paz Comment Comment [facility] Comment on above: Result Comment: Calc ium phosphate (hydroxyl form) includes hydroxyapatite, amorphous calcium phosphate, and whitlockite. Hydroxyapatite is the most common of the calcium phosphate salts found in human kidney stones. Performed By: #### C ALCULI #### [facility] [address] [place] [address] Dr. Graciela Paz Result Comment: Calc ulus received wet. Wet calculi must be dried before analysis, which delays reporting of results. Leaving calculi wet (such as water, saline, blood, urine) may lead to changes in composition. Comment: Comment Normal [facility] Comment on above: Result Comment: Emily mullen questions regarding Calculi Analysis [facility] at: [phone]. Performed By: #### C ALCULI #### [facility] [address] [place] [address] Dr. Graciela Paz Composition Comment [facility] Comment on above: Result Comment: Perc entage (Represents the % composition) Performed By: #### C ALCULI #### [facility] [address] [address] [address] Graciela Paz Cystine [facility] Comment on above: Performed By: #### C ALCULI #### [facility] [address] [place] [address] Dr. Graciela Paz Disclaimer: Comment Normal [facility] Comment on above: Result Comment: This test was developed and its performance characteristics determined by [facility]. It has not been cleared or approved by the Food and Drug Administration. Performed By: #### C ALCULI #### [facility] [address] [place] [address] Dr. Graciela Paz Dried Blood Normal [facility] Comment on above: Performed By: #### C ALCULI #### [facility] [address] [place] [address] Dr. Graciela Paz Drug or Metabolite Normal [facility] Comment on above: Performed By: #### C ALCULI #### [facility] [address] [place] [address] Dr. Graciela Paz Hydroxyapatite 5 % Normal [facility] Comment on above: Performed By: #### C ALCULI #### [facility] [address] [place] [address] Dr. Graciela Paz Mg NH4 PO4 (Struvite) [facility] Comment on above: Performed By: #### C ALCULI #### [facility] [address] [place] [address] Dr. Graciela Paz MgHPO4 (Newberyite) Normal [facility] Comment on above: Performed By: #### C ALCULI #### [facility] [address] [place] [address] Dr. Graciela Paz Other component(s) Normal [facility] Comment on above: Performed By: #### C ALCULI #### [facility] [address] [place] [address] Dr. Graciela Paz PDF . Normal [facility] Comment on above: Performed By: #### C ALCULI #### [facility] [address] [place] [address] Dr. Graciela Paz Photo Comment Normal [facility] Comment on above: Result Comment: Phot ograph will follow under a separate cover Performed By: #### C ALCULI #### [facility] [address] [place] [address] Dr. Graciela Paz Please note: Comment Normal [facility] Comment on above: Result Comment: Calc rafal report will follow via computer, mail or bag printer delivery. Performed By: #### C ALCULI #### [facility] [address] [address] [address] Graciela Paz Size 2x[address] [facility] Comment on above: Result Comment: Mult iple pieces received. Dimensions of the largest piece reported. Performed By: #### C ALCULI #### [facility] [address] [address] [address] Graciela Paz Sodium Acid Urate Normal [facility] Comment on above: Performed By: #### C ALCULI #### [facility] [address] [address] [address] Graciela Paz Source Comment [facility] Comment on above: Result Comment: Left Kidney Performed By: #### C ALCULI #### [facility] [address] [place] [address] Dr. Graciela Paz Triamterene [facility] Comment on above: Performed By: #### C ALCULI #### [facility] [address] [place] [address] Dr. Graciela Paz Uric Acid [facility] Comment on above: Performed By: #### C ALCULI #### [facility] [address] [address] [address] Graciela Paz Uric Acid Dihydrate Normal [facility] Comment on above: Performed By: #### C ALCULI #### [facility] [address] [place] [address] Dr. Graciela Paz Weight 58 mg [facility] Comment on above: Performed By: #### C ALCULI #### [facility] [address] [place] [address] Dr. Graciela Paz Xanthine [facility] Comment on above: Performed By: #### C ALCULI #### [facility] [address] [place] [address] Dr. Graciela Paz ED Note-Physicianon 11-16-19 ED Note-Physician [id number] #1.00CD:[address] [facility] Lab Reportson 11-15-2022 Lab Reports [id number] #1.00CD:127 [facility] Coding Summary.on 11-14-2022 Coding Summary. CD:[id number] Ww+PGhlYWQ+LS8XTYXaS 09moYSvsR3lN7NXWZsWW ywgQVBQTElOSyIgbmFtZ W7xvVScHWGx IC8+JE8eLGCwTtctsDXo c8B0vWN6T26wwl2cUFsw lPI1TMQzZrQnaftvy6xb tRz2LAufBgowGrIi FIKbdN54UII4dW69Eb79 eORiuQDmm7qxkYt6UcKy RIRiCPR0dRfaWBnte9Af QHXmR97sfUKnc6C5 IGNvbGxhcHNlOyBlbXB0 lW8oVYvjapfpb1tqelze Aoi9us56mSZya2B6kPE9 H7NfbtZ8SVWfrRYq MftxeFVOmE0ajrxes1be gafvLyHqJRLeKBy7TTe2 NXEoyOvhLzYfWX48RRU6 JOCvswQpO4XgPDUq aQkpYyW9w5E9Mm1XY4AB HxkqQ3PGFJBGALmuaQU+ TF50hw98O4HdFstpRtc4 QVJeJMI2qAY5lR3p GTRxQVmca8B9cEI6B4Fy nzDmzs9zu6zaALFvZEdn O86idESaq5N9THGdqVT7 GPFwxPbrCdCfxX34 Oyc+YYScpSxru9AcQguw c8jya4darYu2OnnnCTTv gbVufMhjSEG3f4JuKs6q ZLOsrMH7tFO9hD2z CbOeBoH6CDnhY828AqWc dEZyTxufD80dX2CdlBK+ VLYjOqs3RKAvpDiaYA2r D4NhXPItqzhlrYLh pCovSO9sGEVupghjECRb jC7dWDTkB1j8EmGgInK5 PDdpA3PvPGJzbuihCu99 mR6oHzHwWnE2SDxo F0WxpaN3JLTmgCOeQXzt EXN2P80xt5U1BMRnWZBg CHL7dZO9fP4wnXsmjuzm bGVmdDsgdmVydGlj MPhsGRxgY217ELLvaVxv PkNvZGluZyBEYXRlOiAg MDQvMDQvMjAyMzwvdGQ+ YBCfAIW1wOjuTIIg xDLfBDoeSg7uqQftgMoz LQ5yOBUtxihdZQVadI7n HBFngTOqkLnuSF8tXZDu kpwan814QnSqTEI1 RGEofTEeD5ArbQ6gXaZq HEIcCHDxD9FejOQlLRip D995IDhlUdR4EWYjfcCb M7SnYEDeqFwkJxB8 u9O6Rm4Nn0NtmuayK5Gv oERnRoKvPsmfRAu2T3Ev PjwvdHI+RG96IDHwVI81 XOo9RXK3sVhyBOju SJAfJ0NzyZ3mQuLsUXUl ZGRkOyc+PHRhYmxlIHdp ZHRoPScxMDAlJyBzdHls PY2eAu7yVMVrZNHe dRvjfQKnTiRyr4hqLESx AXbzMA9amAvrX0RebVY8 YUWqt7x8Fe68U24wX9Lv dXA+RSEaxDT1jKK0 rP0lEdXeCdC0EEvpW979 WvPcbRThGpeop7ugg0pw qDk1QkG2ZKJrbiJfzClo EPE9p5HmVb38U24u IHdpZHRoPSIxNSUiIHZh wUhxvh3zkG4oQf8+PGNv mWF2oNT9sV6zBvJjTrH9 XPlmF586LoQrnQOg Dmhoa5vme3dwnGz1AzFp FMLvbvGboSbqBPQ6n4Ec Eo29F3VdvUnks8OfHtv6 pj59tCDuw9Y3zLN0 V8DaQDMvnkbycNNtqQiq CV8iYCVcykbcOETvrP5t ZVGoC1y7JrNzNxR5WPqo F9KipuR5WKUktIBo SMDprMHHbK0xukrie5ij qmimCvBlRKKzHQp8XZw5 CYGebFsyJkZeYML2EfN6 WBW4yUBlzB3nxWbb dvsqeI0gNew+YUW6wAIp aSCVNZ8sRtkqvMG+PHRk ZSW0zBesRCplINVrdG9i JMHpK3k4IbVnCzA3 EHofR0MvzeV9VZTdsUEv QNYlkVVJrY2esoyxl3pj edxvRdLvAAVxKAl1VZy9 LWFsaWduOiBsZWZ0 TvS8VFJ2zBPavZ4wnIev cubkuR6zNwd+QmlydGgg KVB0MEl4K2CoHpl1AUFc kNysYN1qdVDtDMfu Ug4ixOdjtLmnUI4yVGKe thlpz445MzZgf0qmUFNe lJVfENmoQHP2N32vf7Y4 SCTvHWFrNNR2jTO7 tJ8cwGjnqrgwkFYtdLsk hpUhfAdxIQgaJSreM529 BYHecSuiYrExYVh1Y2Nt Uxc4BWJiiRngFK1r oGJhDJlnWh1ggOhejTic YF0mOHVokfxnf368EuFv s9hnPXPmwEMeVZxdGLM8 X83wk4U7ZBVaJDBc JMV1hVP5sW0nvWlynstc bGVmdDsgdmVydGljYWwt DRgoT609LUEmmVmdIlDc uNk3S6IyUce9RDDu wSehWP1tzPVgGVgfUt3g aEnpjGvmWG6bUFAyakvm i078XmWzt4hmAPYqbTBy XPxzHKK6S00bk2Y2 JBYmNUKhDOB9sBD9lJ6f bGlnbjogbGVmdDsgdmVy iVjzMAkvGMkaZ095DKTn cDsnPlBhdGllbnQg NDomSOt7J1LtRehzjFO+ OR78UKCtSE64hHMplQGb q9yifPm5DnZxZISwUUA4 fRntXSxsb8RzHTTa T41jzNSes2T7FNLmaSzl lXLxXwVpePT0hN9iOScb iljdu1ymdugvTsecl4rw xa86tJ44Q86lLXim ZHRoPSIzMCUiIHZhbGln ln9zxM4dXt8+PGNvbCB3 pHV8oF9qWCLdEuG7KOyh J142ChTmsGEnEqoi l7yti5mnhHi5KbX7HHAr ggRycMxcIMG0h0XwPl02 Y50nUXyaNTWxTYTrTDHc HYRzsPdmty4tiG5q Ii8+AFYvsTG8dEM9dU4q WgUbDeC6SHgsV238EiZj gAHmTwkcH11jD5AnpDG+ LKYsYyz7HQVtmKtr GI7wbHAdRCkmHl9pBWX5 WrCcVqTvBMmdT8WsDWKv txcopcwhwAR8XSSyRQAc aJ62Rv9xoBdhNYAc uJNEoF7dqelsn6mhrjrq WaXhSBAcZGk9KQq6XNRh bYgxVkJtUNJ8LfG8ICZ7 sHSkaV8tdNhoqkmc hN0qW5PjOIGcrakjCo09 yL2rOgZlBfJ3XDlwOzi+ D8gITwrtE83CJBEYWG43 HE13hRSgq6P4gZR9 B6KmWZYhygofqjjyuDR8 FGXtQAZobY24aDRpMQqd Bz1zl3Z0v810QGLxYMYx xG86Jp7cyOhzZRZb uTOXiV7tjrcno2ykcicx NaIpIOAsARi1AFt2OSMa fTnjBpDpFQU9MzX9EIZ8 yLMsbT2guTbptvlk eG6zXax+MTIvMjQvMjAw MTwvdGQ+CNIsWCP8uMxy OKffWKCtjR7qUVGfE6m6 IvKqDlM8NPkmF5Ty IBBfqekjXz41kA7aRyVx LcH6UMnlM7ZubcO2DWVl yACxLSmwKZN6D08si7P7 JFVaGLCbLMG6aLY1 fA1eyTdpvncwkISzuKbw djPeuBbgGEzyCWsvR367 IHRvcDsnPjIxIFllYXJz BQ99NQ13qVMfq4G9 oCA7Q9WiTFBnjgfmdqcf zRQ7AMPcBRDmmE14fXHo UDstFp5oa2I8t237OEDq OENakD07Gs5srHdt EMFczPNUxK4gyicgu2nv vorsDpXgPCLlTFb3UJw8 IZZwlJcpQqUfSKR2AeZ7 CYX5mSOwhU2msIef glyvrB7pXix+RmVtYWxl HY08KW35dXMdw3E7xQD5 N5FxTFVaqclorxuuwIU5 ISApVBWbeD20tKTc XFpcPu8ah4V0d295OBCn WCSldH88Qt4xuXngUAXp zXJOkY7jtqwkg4wyveya JvEeXQOiFIb2YDy8 RBKicUeeKmGwPKS8FeA1 GEY5pEArrV2onGcwtgbv zA6bOco+I7N6hXA5cSJk dDwvdGQ+YW71ze55 K5CmSoiwGwx4EYJxEHD7 oPO0tV9sHAJeLVlwg2E2 iVV2J6QpvkQywe3il1jv BQOrRWpnV34bsZYc g4Q5ZIWarBD9GNZxbWcg FeZnzH05Fsf+PGNvbGdy o7RcNffde8qns4menZp2 IjMwJSIgdmFsaWdu RJV4t0YlVf33E00oNFfm ZHRoPSIzMCUiIHZhbGln xs0xgV6aBp3+PGNvbCB3 uOL6kF2lJmSpWqC2 VTnnP827KtApjAKlLgjo h0tps2dcrDl8RfWkPWTw mgElnTowSDG5c0KaPp63 I2BqzMswe1TkPcv9 yh73sCDqp4F3yMZ1P0Pf ZJMwanxnwXMdlBdyTI2f OUJnsazsTULnkK6sGTCb V8q2JcSlEpW4NJor K3JexdM4ZBJwdTDbWOPf tQGCeJ0fvqbzk9nptytd EyFqMNSrOVn2GYt9KDNi aQxeQvUgPND5AfA0 EGW1xZGweN7rmFstqxmc zK2jXxd+YIt1z1rbsNYm IO7erGB2LO07CC99qBFx p7U5fYF5E3IaHMHx pfzxjeuzeKC0PFZrNSUv sI23Ox1ofIleFh2zKZVd JXL3ROSqfEKgG2FocE1h UzTxWLXkBABpN0Ja yVAaFGonD457VFwbAdT5 XDAijhSzN6HfLDJlzYlh QhV5l0R8Mm1PIE16ZV00 PC31gYUpi7A0fGI0 N4VeSYEvspfqxeshgGF5 MJDuESJnqX66Uo4tmOuf Hl1aYIRpZWV9OECyhATw L4OmsN6wMcCjUXFr WDVmO1KynRKvZJbvY233 UElqYrP1PAZfcuAlL0Fa THHexQfyHqK3u7U0Vq6M Sv46LC51YV55vJMs p2A4tSI4M2KxRDYtlsvk arcskJL1ONBnFLCgdO12 Id9ceRyfAc7tZJBgPAM2 OBDxnZXuF4MjdN5k KhAhVBPcQUFiW2FgeTFd LSzfU388IUtkXgM1QUUw rhIzC9IuXOXyfQrdDnS3 e7Q5Sk9OWNidsda7 S7ClUremrET+XS13GJOq LP36tHMybOLkj4eqnRw4 BmKfOCFgUSK5ePctLFft m9IcSHHsN10qsITo u1D3PGAa (more content not included)... Normal [facility] CBC AUTO DIFFon 11-13-2022 BASO # 0.1 103/ul Normal 0.0-0.[address] [facility] Comment on above: Performed By: #### C BC #### [facility] [address] [place] [address] Dr. Graciela Paz Basophils/100 WBC (Bld) 0.8 % Normal 0.2-2.[address] [facility] Comment on above: Performed By: #### C BC #### [facility] [address] [place] [address] Dr. Graciela Paz EO # 0.2 103/ul Normal 0.0-0.[address] [facility] Comment on above: Performed By: #### C BC #### [facility] [address] [place] [address] Dr. Graciela Paz Eosinophils/100 WBC (Bld) 3.2 % Normal 0.9-7.[address] [facility] Comment on above: Performed By: #### C BC #### [facility] [address] [place] [address] Dr. Graciela Paz Erythrocyte distribution width (RBC) [Ratio] 13.2 % Normal 11.0-15.[address] [facility] Comment on above: Performed By: #### C BC #### [facility] [address] [place] [address] Dr. Graciela Paz Hematocrit (Bld) [Volume fraction] 37.3 % Normal 36.0-48.[address] [facility] Comment on above: Performed By: #### C BC #### [facility] [address] [place] [address] Dr. Graciela Paz Hemoglobin (Bld) [Mass/Vol] 12.5 g/dL Normal 12.0-16.[address] [facility] Comment on above: Performed By: #### C BC #### [facility] [address] [place] [address] Dr. Graciela Paz IG # 0.03 10e3/ul Normal 0.00-0.[address] [facility] Comment on above: Performed By: #### C BC #### [facility] [address] [place] [address] Dr. Graciela Paz IG % 0.5 % Normal 0.0-0.[address] [facility] Comment on above: Performed By: #### C BC #### [facility] [address] [place] [address] Dr. Graciela Paz LYMPH # 1.5 103/ul Normal 1.2-3.8 [facility] Comment on above: Performed By: #### C BC #### [facility] [address] [place] [address] Dr. Graciela Paz Lymphocytes/100 WBC (Bld) 23.7 % Normal 20.5-60.[address] [facility] Comment on above: Performed By: #### C BC #### [facility] [address] [place] [address] Dr. Graciela Paz MANUAL DIFF REQ NO Normal [facility] Comment on above: Performed By: #### C BC #### [facility] [address] [place] [address] Dr. Graciela Paz MCH (RBC) [Entitic mass] 30.3 pg Normal 26.7-34.[address] [facility] Comment on above: Performed By: #### C BC #### [facility] [address] [place] [address] Dr. Graciela Paz MCHC (RBC) [Mass/Vol] 33.5 g/dL Normal 29.9-35.[address] [facility] Comment on above: Performed By: #### C BC #### [facility] [address] [place] [address] Dr. Graciela Paz MCV (RBC) [Entitic vol] 90.5 fL Normal 81.0-99.[address] [facility] Comment on above: Performed By: #### C BC #### [facility] [address] [place] [address] Dr. Graciela Paz MONO # 0.6 103/ul Normal 0.3-0.[address] [facility] Comment on above: Performed By: #### C BC #### [facility] [address] [place] [address] Dr. Graciela Paz Monocytes/100 WBC (Bld) 9.1 % Normal 1.7-12.[address] [facility] Comment on above: Performed By: #### C BC #### [facility] [address] [place] [address] Dr. Graciela Paz NEUT # 4.1 103/ul Normal 1.4-6.[address] [facility] Comment on above: Performed By: #### C BC #### [facility] [address] [place] [address] Dr. Graciela Paz Neutrophils/100 WBC (Bld) 62.7 % Normal 43.0-75.[address] [facility] Comment on above: Performed By: #### C BC #### [facility] [address] [place] [address] Dr. Graciela Paz Platelet mean volume (Bld) [Entitic vol] 9.7 fL Normal 9.5-13.[address] [facility] Comment on above: Performed By: #### C BC #### [facility] [address] [place] [address] Dr. Graciela Paz PLT 193 103/ul Normal 150-450 [facility] Comment on above: Performed By: #### C BC #### [facility] [address] [place] [address] Dr. Graciela Paz RBC 4.12 106/ul Critically low 4.20-5.40 [facility] Comment on above: Performed By: #### C BC #### [facility] [address] [place] [address] Dr. Graciela Paz WBC 6.5 103/ul Normal 4.0-11.0 [facility] Comment on above: Performed By: #### C BC #### [facility] [address] [address] [address] Graciela Paz Consent for Procedure/Surger yon 11-13-2022 Consent for Procedure/Surgery [id number] 9#1.00CD:[address] [facility] Consent for Treatmenton Consent for Treatment [id number] #1.00CD:[address] [facility] ER URINE PROFILEon Bilirubin Ql (U) SMALL Abnormal NEGATIVE [facility] Comment on above: Performed By: #### U MICRO, ERUR #### [facility] [address] [place] [address] Dr. Graciela Paz Clarity (U) CLOUDY Abnormal CLEAR [facility] Comment on above: Performed By: #### U MICRO, ERUR #### [facility] [address] [place] [address] Dr. Graciela Paz Color (U) DK. YELLOW Normal YELLOW [facility] Comment on above: Performed By: #### U MICRO, ERUR #### [facility] [address] [place] [address] Dr. Graciela LUEVANO A micrscopic examination will be performed if indicated. Normal [facility] Comment on above: Performed By: #### U MICRO, ERUR #### [facility] [address] [address] [address] Graciela Paz Glucose Ql (U) Negative Normal NEGATIVE [facility] Comment on above: Performed By: #### U MICRO, ERUR #### [facility] [address] [address] [address] Graciela Paz Hemoglobin Ql (U) LARGE Abnormal NEGATIVE [facility] Comment on above: Performed By: #### U MICRO, ERUR #### [facility] [address] [place] [address] Dr. Graciela aPz Ketones Ql (U) TRACE Abnormal NEGATIVE [facility] Comment on above: Performed By: #### U MICRO, ERUR #### [facility] [address] [address] [address] Graciela Paz LEUKOCYTES TRACE Abnormal NEGATIVE [facility] Comment on above: Performed By: #### U MICRO, ERUR #### [facility] [address] [address] [address] Graciela Paz Nitrite Ql (U) Negative Normal NEGATIVE [facility] Comment on above: Performed By: #### U MICRO, ERUR #### [facility] [address] [address] [address] Graciela Paz pH (U) 6.5 [pH] Normal 5-[address] [facility] Comment on above: Performed By: #### U MICRO, ERUR #### [facility] [address] [place] [address] Dr. Graciela Paz Protein (U) [Mass/Vol] 300 mg/dL Abnormal NEGATIVE/ TRACE [facility] Comment on above: Performed By: #### U MICRO, ERUR #### [facility] [address] [place] [address] Dr. Graciela Paz SPEC GRAVITY 1.030 Abnormal 1.005-<=1.025 [facility] Comment on above: Performed By: #### U MICRO, ERUR #### [facility] [address] [place] [address] Dr. Graciela Paz UR MICRO IND INDICATED Normal [facility] Comment on above: Performed By: #### U MICRO, ERUR #### [facility] [address] [address] [address] Graciela Paz Urobilinogen Qn (U) 0.2 {Mi'U}/dL Normal 0.2 - 1. [address] [facility] Comment on above: Performed By: #### U MICRO, ERUR #### [facility] [address] [place] [address] Dr. Graciela Paz Inpatient Patient Summaryon 11-13-2022 Inpatient Patient Summary [place] [id number] Clinical Summary Person Information Name: KEYONA ATKINS Age: 22 Years : 2000 Sex: Female PCP: Ilia Cobb DO Marital Status: Single Race: White Ethnicity: Non- or Language: Tuvaluan Visit Id: Visit Reason: KIDNEY STONES Speciality: Acuity: Enc Type: Outpatient Med Service: Surgery Arrival: 11/13/2022 09:00:06 Discharge: Dispo Type: Address: [address] [place] [id number] Provider Notes: Diagnosis: Foreign body in bladder; Kidney stone Problems Active Renal cyst Gross hematuria Renal stone Kidney stone Hypertension Heart disease Head ache Head injury Deafness Asthma Smoking Status: Functional Status: Sensory Deficits: History of Falls: Mobility Assistance Prior to Admission: ADLs: Current Level of Assistance for Self-Care/Mobility: Cognitive Status: Allergies No Known Allergies Laboratory or Other Results This Visit (last charted value for your 11/13/2022 visit) No Laboratory or Other Results This Visit Measurements: Height: Weight: Blood Pressure: Not Valued / Not Valued BMI: Procedures No Procedures Documented Immunizations No Immunizations Documented This Visit Final Med List: cholecalciferol (Vitamin D3) enalapril (enalapril 5 mg Tab) By Mouth every day. loratadine (loratadine 10 mg Tab) By Mouth every day. melatonin (melatonin 3 mg Tab) 1 Tablets By Mouth once a day (at bedtime) as needed for insomnia. metoprolol (metoprolol 25 mg ER Tab) By Mouth every day. montelukast (montelukast 10 mg Tab) By Mouth every day. sertraline (sertraline 50 mg Tab) By Mouth every day. Care Team Members: Attending Physician: Arelis Yip MD Consulting Physician: Referring Physician: Arelis Yip MD Follow up: With: Address: When: Arelis Yip [address] [place] [address] [phone] Business (1) [address], [address], [place] [phone] Business (1) Comments: Office to schedule follow up in 6-8 wks with renal US, KUB and 24 hr urine stone workup, labs Patient Education Information: Dietary Guidelines to Help Prevent Kidney Stones; EU - Cystoscopy with Stent Removal Discharge Instructions (CUSTOM) [facility] IntraOperative Documentson 0 11-13-2022 IntraOperative Documents [id number]:127 [facility] Main OR Intraoperative Recor don 11-13-2022 Main OR Intraoperative Record IntraOp Document Type FTURO Summary Primary Physician: Arelis Yip MD Finalized Date/Time: 11/13/22 09:22:28 Pt. Name: KEYONA ATKINS Abe MendozaB./Sex: 2000 Female Med Rec #: [id number] Physician: Arelis Yip MD Financial #: [id number] Pt. Type: O Room/Bed: / Admit/Disch: 11/13/22 09:00:06 - Institution: Case Times FTURO Entry 1 Patient Times In Room 11/13/22 09:14:00 Out Room 11/13/22 09:22:00 Procedure Times Start 11/13/22 09:19:00 Stop 11/13/22 09:20:00 Anesthesia Times Last Modified By: Tiffanie Forde RN 11/13/22 09:22:24 Case Attendance FTURO Entry 1 Entry 2 Entry 3 Case Attendee Phi MTZ, Arelis Chan INSPECTOR OPEN DIE, Leydi Forde RN, Tiffanie Nieto Role Performed Surgeon - Primary Scrub - Primary Partner Alliance Manager - Primary Time In 11/13/22 09:14:00 11/13/22 09:14:00 11/13/22 09:14:00 Time Out 11/13/22 09:22:00 11/13/22 09:22:00 11/13/22 09:22:00 Procedure CYSTOSCOPY LOCAL WITH CYSTOSCOPY LOCAL WITH CYSTOSCOPY LOCAL WITH STENT REMOVAL(Left) STENT REMOVAL(Left) STENT REMOVAL(Left) Comments Last Modified By: Maurisio LOPEZ, Tiffanie Forde RN, Tiffanie Jarrell RN 11/13/22 09:22:25 11/13/22 09:22:25 11/13/22 09:22:25 Surgical Procedures FTURO Entry 1 Procedure Description Procedure CYSTOSCOPY LOCAL WITH Modifiers Left STENT REMOVAL Surgeon Description CYSTOSCOPY LOCAL WITH LEFT STENT REMOVAL Primary Procedure Yes Primary Surgeon Arelis Yip MD Start 11/13/22 09:19:00 Stop 11/13/22 09:20:00 Anesthesia Type Local Surgical Service Urology Wound Class 2 - Clean-Contaminated Last Modified By: Tiffanie Forde RN 11/13/22 09:20:16 General Case Data FTURO Pre-Care Text: Classifies surgical wound, implements aseptic technique, initiates traffic control Entry 1 Case Information OR URO 1 FT Case Level None Wound Class 2 - Clean-Contaminated Specialty Urology Preop Diagnosis KIDNEY STONES Postop Same As Preop Yes Postop Diagnosis KIDNEY STONES Outcomes Met? Yes Last Modified By: Tiffanie Forde RN 11/13/22 09:11:33 Post-Care Text: The patient is free from signs and symptoms of infection EU IntraOp - FTURO Pre-Care Text: Implements protective measures prior to operative or invasive procedure, confirms identity before the operative or invasive procedure, verifies operative procedure, surgical site, and laterality Entry 1 EU Perioperative Protocols Procedure(s) CYSTOSCOPY LOCAL WITH Patient Identity Birthday, ID Band STENT REMOVAL(Left) Verified (select at Check, Patient least 2): Participation Consents / H and P HandP, Surgery/Procedure Operative Site Present Verified Consent Marking Verified Surgical Site Yes Laterality Verified Yes Verified Procedure Verified Yes Correct Patient Yes Position Verified Availability Equipment, Medication Time Out Arelis Yip MD, Verified (If Participants Leydi Chan CST, Applicable) Tiffanie Forde RN Time Out Complete 11/13/22 09:16:00 Allergies Reviewed? Yes Allergies Reviewed Self/Patient With Body Position Frog Legged Prep Area PERINEUM Prep Agents Betadine Solution Skin. Condition Dry, Warm, Unable to Description UNABLE TO VISUALIZE DUE Visualize TO PATIENT PARTIALLY CLOTHED Additional None Specimens Collected Vitals - EU Blood Pressure 120/79 Pulse 75 bpm Respirations 18 br/min SPO2 98 % EBL 0 IandO - EU Total Intake 0 mL Total Output 0 mL Outcomes Met? Yes Last Modified By: Tiffanie Forde RN 11/13/22 09:16:08 Post-Care Text: The patient is free from signs and symptoms of injury caused by extraneous objects Sign Out FTURO Entry 1 Before Patient Leaves OR Nurse verbally Yes Nurse verbally Yes confirms with the confirms with the team the name of team that the procedure(s) instrument, sponge, recorded and needle counts are correct (or N/A) Nurse verbally n/a Nurse verbally Yes confirms with the confirms with the team how the team whether there specimen is labeled are any equipment (including patient problems to be name), if applicable addressed Sign Out Complete 11/13/22 09:20:00 Last Modified By: Tiffanie Forde RN 11/13/22 09:20:15 Case Comments Finalized By: Tiffanie Forde RN Document Signatures Signed By: Tiffanie Forde RN 11/13/22 09:[address] [facility] Main OR Preoperative Recordo n 11-13-2022 Main OR Preoperative Record Holding Area Document Type FTURO Summary Primary Physician: Arelis Yip MD Finalized Date/Time: 11/13/22 09:10:09 Pt. Name: KARENMARIYAKEYONA D.O.B./Sex: 2000 Female Med Rec #: [id number] Physician: Arelis Yip MD Financial #: [id number] Pt. Type: O Room/Bed: / Admit/Disch: 11/13/22 09:00:06 - Institution: Case Times Holding FTURO Pre-Care Text: Verifies consent for planned procedure, identifies individual values and wishes concerning care, includes family members in perioperative teaching Secures patient's records' belongings, and valuables, maintains patient's dignity and privacy, and maintains patient confidentiality Entry 1 In Holding 11/13/22 09:03:00 Outcomes Met? Yes Last Modified By: Arianna Davila LPN 11/13/22 09:03:53 Post-Care Text: The patient participates in decisions affecting his or her perioperative plan of care The patient's right to privacy is maintained Surgery Checklist FTURO Entry 1 Patient Birthday, Patient Procedure History and Physical, Identification: Participation Verification: Surgical Consent, With Patient NPO after Midnight: No Date/Time: 11/13/22 09:04:00 Personal Items: Jewelry Personal Items clothes Comment: Limitations: na Complaints of Pain: No Pain Comment: na Skin Integrity Intact, [place], Warm, & Dry Vitals - EU Blood Pressure 120/79 Pulse 75 bpm Respirations 18 br/min SPO2 98 % RN Reviewed Yes Last Modified By: Tiffanie Forde RN 11/13/22 09:10:07 General Comments: temp:36.6 Finalized By: Tiffanie Forde RN Document Signatures Signed By: Giovanni LEGGETTArianna 11/13/22 09:08 Tiffanie Forde RN 11/13/22 09:[address] [facility] Operative Reporton Operative Report Patient: KEYONA ATKINS Age: 22 years Sex: Female : 2000 Associated Diagnoses: None Author: Arelis Yip MD Procedure Operative Information Details: Date/ Time: 11/13/2022 09:26:00. Pre-Op Dx: Foreign body in bladder (YVZ56-EC T19.1XXA, Discharge, Medical), Kidney stone (HAH50-PV N20.0, Discharge, Medical). Post-Op Dx: Same. Anesthesia Type: Local. Procedure: Local Cystoscopy with Stent Removal, Left. Complications: None. Risks/Benefits/Infor med Consent: Surgical risks, benefits, details of the procedure have been explained to the patient, Full informed consent has been obtained. Intraoperative Information Prepped: The patient was placed in supine position, The patient was prepped with the Betadine solution. Anesthesia: 2% Xylocaine Jelly per urethra. Procedure: Cystoscopy and Left Stent Removal, The flexible Cystoscope was passed in retrograde fashion into the bladder without difficulty, The bladder was viewed in entirety and found to be without tumors or stones, Mild inflammation was seen surrounding the orifice with the stent seen protruding from it, The stent was then grasped and removed in its entirety. Specimens Removed: None. Devices Implanted: None. Postoperative Information Discharge: The patient tolerated the procedure well and was subsequently discharged home. Left stent removed without difficulty. Serum Ca 10.1 (2022) and 10.6 (2020), BMP wnl Stone analysis not available yet, will review at f/u Pt elects to proceed with metabolic workup. Follow up in 6-8 wks with 24 hr urine litholink to be mailed, Serum uric acid and PTH to be sent to [facility], renal US and KUB . Normal [facility] Comment on above: Result Comment: Elec tronically Signed By: Arelis Yip MD\.br\Date and Time Signed: 11/13/22 09:29 EDT Outpatient Surgery Discharge Instructionon 11-13-2022 Outpatient Surgery Discharge Instruction [place] [id number] Patient Discharge Instructions PERSON INFORMATION Name: KEYONA ATKINS Date of : 2000 Current Date: 11/13/2022 09:24:56 PHYSICIANS Admitting Physician: Arelis Yip MD Comment: Discharge Diagnosis: Foreign body in bladder; Kidney stone KEYONA ATKINS has been given the following list of follow-up instructions, prescriptions, and patient education materials: IF UNABLE TO CONTACT YOUR PHYSICIAN AND YOU FEEL IT IS AN EMERGENCY, GO TO THE NEAREST EMERGENCY ROOM OR CALL 911 Follow up: With: Address: When: Arelis Yip [address] [phone] [facility] (1) [address] [facility], [place] [address], [place] [phone] Business (1) Comments: Office to schedule follow up in 6-8 wks with renal US, KUB and 24 hr urine stone workup, labs Comment: PATIENT EDUCATION INFORMATION Instructions: Dietary Guidelines to Help Prevent Kidney Stones Kidney stones are deposits of minerals and salts that form inside your kidneys. Your risk of developing kidney stones may be greater depending on your diet, your lifestyle, the medicines you take, and whether you have certain medical conditions. Most people can reduce their chances of developing kidney stones by following the instructions below. Depending on your overall health and the type of kidney stones you tend to develop, your dietitian may give you more specific instructions. What are tips for following this plan? Reading food labels ? Choose foods with no salt added or low-salt labels. Limit your sodium intake to less than 1500 mg per day. ? Choose foods with calcium for each meal and snack. Try to eat about 300 mg of calcium at each meal. Foods that contain 200?500 mg of calcium per serving include: ? 8 oz (237 ml) of milk, fortified nondairy milk, and fortified fruit juice. ? 8 oz (237 ml) of kefir, yogurt, and soy yogurt. ? 4 oz (118 ml) of tofu. ? 1 oz of cheese. ? 1 cup (300 g) of dried figs. ? 1 cup (91 g) of cooked broccoli. ? 1?3 oz can of sardines or mackerel. ? Most people need 1000 to 1500 mg of calcium each day. Talk to your dietitian about how much calcium is recommended for you. Shopping ? Buy plenty of fresh fruits and vegetables. Most people do not need to avoid fruits and vegetables, even if they contain nutrients that may contribute to kidney stones. ? When shopping for convenience foods, choose: ? Whole pieces of fruit. ? Premade salads with dressing on the side. ? Low-fat fruit and yogurt smoothies. ? Avoid buying frozen meals or prepared deli foods. ? Look for foods with live cultures, such as yogurt and kefir. Cooking ? Do not add salt to food when cooking. Place a salt shaker on the table and allow each person to add his or her own salt to taste. ? Use vegetable protein, such as beans, textured vegetable protein (TVP), or tofu instead of meat in pasta, casseroles, and soups. Meal planning ? Eat less salt, if told by your dietitian. To do this: ? Avoid eating processed or premade food. ? Avoid eating fast food. ? Eat less animal protein, including cheese, meat, poultry, or fish, if told by your dietitian. To do this: ? Limit the number of times you have meat, poultry, fish, or cheese each week. Eat a diet free of meat at least 2 days a week. ? Eat only one serving each day of meat, poultry, fish, or seafood. ? When you prepare animal protein, cut pieces into small portion sizes. For most meat and fish, one serving is about the size of one deck of cards. ? Eat at least 5 servings of fresh fruits and vegetables each day. To do this: ? Keep fruits and vegetables on hand for snacks. ? Eat 1 piece of fruit or a handful of berries with breakfast. ? Have a salad and fruit at lunch. ? Have two kinds of vegetables at dinner. ? Limit foods that are high in a substance called oxalate. These include: ? Spinach. ? Rhubarb. ? Beets. ? Potato chips and maldivian fries. ? Nuts. ? If you regularly take a diuretic medicine, make sure to eat at least 1?2 fruits or vegetables high in potassium each day. These include: ? Avocado. ? Banana. ? [place], prune, carrot, or tomato juice. ? Baked potato. ? Cabbage. ? Beans and split peas. General instructions ? Drink enough fluid to keep your urine clear or pale yellow. This is the most important thing you can do. ? Talk to your health care provider and dietitian about taking daily supplements. Depending on your health and the cause of your kidney stones, you may be advised: ? Not to take supplements with vitamin C. ? To take a calcium supplement. ? To take a daily probiotic supplement. ? To take other supplements such as magnesium, fish oil, or vitamin B6. ? Take all medicines and supplements as told by your health care provider. (more content not included)... Normal [facility] PROF 14(COMP METB)on 023 Albumin [Mass/Vol] 4.4 g/dL Normal 3.4-5.0 [facility] Comment on above: Performed By: #### C MP #### [facility] [address] [place] [address] Dr. Graciela Paz Albumin/Globulin [Mass ratio] 1.2 {ratio} Normal [facility] Comment on above: Performed By: #### C MP #### [facility] [address] [place] [address] [address] Graciela Paz ALP [Catalytic activity/Vol] 105 U/L Normal 46-116 [facility] Comment on above: Performed By: #### C MP #### [facility] [address] [place] [address] [address] Graciela Paz ALT [Catalytic activity/Vol] 54 U/L Normal 14-[address] [facility] Comment on above: Performed By: #### C MP #### [facility] [address] [place] [address] [address] Graciela Paz Anion gap [Moles/Vol] 13.9 mmol/L Normal [facility] Comment on above: Performed By: #### C MP #### [facility] [address] [place] [address] [address] Graciela Paz AST [Catalytic activity/Vol] 38 U/L Critically high 15-[address] [facility] Comment on above: Performed By: #### C MP #### [facility] [address] [place] [address] [address] Graciela Paz Bilirubin [Mass/Vol] 0.5 mg/dL Normal 0.2-1.[address] [facility] Comment on above: Performed By: #### C MP #### [facility] [address] [place] [address] [address] Graciela Paz Calcium [Mass/Vol] 10.9 mg/dL Critically high 8.5-10.1 [facility] Comment on above: Performed By: #### C MP #### [facility] [address] [place] [address] [address] Graciela Paz Chloride [Moles/Vol] 103 mmol/L Normal 98-[address] [facility] Comment on above: Performed By: #### C MP #### [facility] [address] [place] [address] [address] Graciela Paz CO2 [Moles/Vol] 24.1 mmol/L Normal 21.0-32.0 [facility] Comment on above: Performed By: #### C MP #### [facility] [address] [place] [address] [address] Graciela Paz Creatinine [Mass/Vol] 0.60 mg/dL Normal 0.55-1.[address] [facility] Comment on above: Performed By: #### C MP #### [facility] [address] [place] [address] [address] Graciela Paz EGFR-AF SAUDI ARABIAN >60 Normal >=60 [facility] Comment on above: Performed By: #### C MP #### [facility] [address] [place] [address] [address] Graciela Paz EGFR-NON AF SAUDI ARABIAN >60 Normal >=[address] [facility] Comment on above: Performed By: #### C MP #### [facility] [address] [place] [address] [address] Graciela Paz Globulin (S) [Mass/Vol] 3.7 g/dL Normal [facility] Comment on above: Performed By: #### C MP #### [facility] [address] [place] [address] [address] Graciela Paz Glucose [Mass/Vol] 111 mg/dL Critically high 74-106 T [facility] Comment on above: Performed By: #### C MP #### [facility] [address] [place] [address] [address] Graciela Paz Potassium [Moles/Vol] 4.0 mmol/L Normal 3.5-5.[address] [facility] Comment on above: Performed By: #### C MP #### [facility] [address] [place] [address] Dr. Graciela Paz Protein [Mass/Vol] 8.1 g/dL Normal 6.4-8.2 [facility] Comment on above: Performed By: #### C MP #### [facility] [address] [place] [address] Dr. Graciela Paz Sodium [Moles/Vol] 137 mmol/L Normal 136-145 [facility] Comment on above: Performed By: #### C MP #### [facility] [address] [place] [address] Dr. Graciela Paz Urea nitrogen [Mass/Vol] 11.0 mg/dL Normal 7.0-18.[address] [facility] Comment on above: Performed By: #### C MP #### [facility] [address] [place] [address] Dr. Graciela Paz Urea nitrogen/Creatinine [Mass ratio] 18.3 mg/mg Normal [facility] Comment on above: Performed By: #### C MP #### [facility] [address] [place] [address] Dr. Graciela Paz URINE MICROSCOPIC ONLYon BACTERIA NONE SEEN Normal NONE SEEN [facility] Comment on above: Performed By: #### U MICRO, ERUR #### [facility] [address] [place] [address] Dr. Graciela Paz Bacteria identified Cx Nom (U) NOT INDICATED Normal [facility] Comment on above: Performed By: #### U MICRO, ERUR #### [facility] [address] [place] [address] Dr. Graciela Paz CAST NONE SEEN Normal NONE SEEN [facility] Comment on above: Performed By: #### U MICRO, ERUR #### [facility] [address] [place] [address] Dr. Graciela Paz Crystals LM Nom (Urine sed) NONE SEEN Normal NONE SEEN [facility] Comment on above: Performed By: #### U MICRO, ERUR #### [facility] [address] [place] [address] Dr. Graciela Paz Epithelial cells LM Ql (Urine sed) RARE Normal NONE SEEN /RARE [facility] Comment on above: Performed By: #### U MICRO, ERUR #### [facility] [address] [place] [address] Dr. Graciela Paz MUCOUS NONE SEEN Normal NONE SEEN [facility] Comment on above: Performed By: #### U MICRO, ERUR #### [facility] [address] [place] [address] Dr. Graciela Paz RBC (U) [#/Vol] /uL Abnormal 0-2 [facility] Comment on above: Performed By: #### U MICRO, ERUR #### [facility] [address] [place] [address] Dr. Graciela Paz WBC 5-10 Abnormal NONE SEEN [facility] Comment on above: Performed By: #### U MICRO, ERUR #### [facility] [address] [place] [address] Dr. Graciela Paz Operative Reporton Operative Report [id number] #[id number]:[address] [facility] PREG HCG QUALon 11-08-2022 , QUAL Negative Normal NEGATIVE [facility] Comment on above: Performed By: #### P REG #### [facility] [address] [place] [address] Dr. Graciela Paz Lab Reportson 11-02-2022 Lab Reports [id number] 1.00CD:[address] [facility] CBC AUTO DIFFon 11-01-2022 BASO # 0.0 103/ul Normal 0.0-0.[address] [facility] Comment on above: Performed By: #### C BC #### [facility] [address] [place] [address] Dr. Graciela Paz Basophils/100 WBC (Bld) 0.9 % Normal 0.2-2.[address] [facility] Comment on above: Performed By: #### C BC #### [facility] [address] [place] [address] Dr. Graciela Paz EO # 0.3 103/ul Normal 0.0-0.[address] [facility] Comment on above: Performed By: #### C BC #### [facility] [address] [place] [address] Dr. Graciela Paz Eosinophils/100 WBC (Bld) 5.9 % Normal 0.9-7.[address] [facility] Comment on above: Performed By: #### C BC #### [facility] [address] [place] [address] Dr. Graciela Paz Erythrocyte distribution width (RBC) [Ratio] 13.0 % Normal 11.0-15.[address] [facility] Comment on above: Performed By: #### C BC #### [facility] [address] [place] [address] Dr. Graciela Paz Hematocrit (Bld) [Volume fraction] 35.3 % Critically low 36.0-48.[address] [facility] Comment on above: Performed By: #### C BC #### [facility] [address] [place] [address] Dr. Graciela Paz Hemoglobin (Bld) [Mass/Vol] 11.8 g/dL Critically low 12.0-16.[address] [facility] Comment on above: Performed By: #### C BC #### [facility] [address] [place] [address] Dr. Graciela Paz IG # 0.01 10e3/ul Normal 0.00-0.[address] [facility] Comment on above: Performed By: #### C BC #### [facility] [address] [place] [address] Dr. Graciela Paz IG % 0.2 % Normal 0.0-0.[address] [facility] Comment on above: Performed By: #### C BC #### [facility] [address] [place] [address] Dr. Graciela Paz LYMPH # 1.3 103/ul Normal 1.2-3.[address] [facility] Comment on above: Performed By: #### C BC #### [facility] [address] [place] [address] Dr. Graciela Paz Lymphocytes/100 WBC (Bld) 28.8 % Normal 20.5-60.[address] [facility] Comment on above: Performed By: #### C BC #### [facility] [address] [place] [address] Dr. Graciela Paz MANUAL DIFF REQ NO Normal [facility] Comment on above: Performed By: #### C BC #### [facility] [address] [place] [address] Dr. Graciela Paz MCH (RBC) [Entitic mass] 30.0 pg Normal 26.7-34.[address] [facility] Comment on above: Performed By: #### C BC #### [facility] [address] [place] [address] Dr. Graciela Paz MCHC (RBC) [Mass/Vol] 33.4 g/dL Normal 29.9-35.[address] [facility] Comment on above: Performed By: #### C BC #### [facility] [address] [place] [address] Dr. Graciela Paz MCV (RBC) [Entitic vol] 89.8 fL Normal 81.0-99.[address] [facility] Comment on above: Performed By: #### C BC #### [facility] [address] [place] [address] Dr. Graciela Paz MONO # 0.5 103/ul Normal 0.3-0.[address] [facility] Comment on above: Performed By: #### C BC #### [facility] [address] [place] [address] [address] Graciela Paz Monocytes/100 WBC (Bld) 10.3 % Normal 1.7-12.[address] [facility] Comment on above: Performed By: #### C BC #### [facility] [address] [place] [address] [address] Graciela Paz NEUT # 2.4 103/ul Normal 1.4-6.[address] [facility] Comment on above: Performed By: #### C BC #### [facility] [address] [place] [address] [address] Graciela Paz Neutrophils/100 WBC (Bld) 53.9 % Normal 43.0-75.[address] [facility] Comment on above: Performed By: #### C BC #### [facility] [address] [place] [address] Dr. Graciela Paz Platelet mean volume (Bld) [Entitic vol] 9.2 fL Critically low 9.5-13.[address] [facility] Comment on above: Performed By: #### C BC #### [facility] [address] [place] [address] Dr. Graciela Paz PLT 132 103/ul Critically low 150-450 [facility] Comment on above: Performed By: #### C BC #### [facility] [address] [address] [address] Graciela Paz RBC 3.93 106/ul Critically low 4.20-5.40 [facility] Comment on above: Performed By: #### C BC #### [facility] [address] [place] [address] Dr. Graciela Paz WBC 4.4 103/ul Normal 4.0-11.0 [facility] Comment on above: Performed By: #### C BC #### [facility] [address] [place] [address] Dr. Graciela Paz PROF CHEM 8 (BAS METB)on Anion gap [Moles/Vol] 12.8 mmol/L Normal [facility] Comment on above: Performed By: #### B MP #### [facility] [address] [address] [address] Graciela Paz Calcium [Mass/Vol] 10.1 mg/dL Normal 8.5-10.1 [facility] Comment on above: Performed By: #### B MP #### [facility] [address] [address] [address] Graciela Paz Chloride [Moles/Vol] 106 mmol/L Normal 98-107 [facility] Comment on above: Performed By: #### B MP #### [facility] [address] [address] [address] Graciela Paz CO2 [Moles/Vol] 25.2 mmol/L Normal 21.0-32.0 [facility] Comment on above: Performed By: #### B MP #### [facility] [address] [place] [address] Dr. Graciela Paz Creatinine [Mass/Vol] 0.44 mg/dL Critically low 0.55-1.[address] [facility] Comment on above: Performed By: #### B MP #### [facility] [address] [place] [address] Dr. Graciela Paz EGFR-AF SAUDI ARABIAN >60 Normal >=60 [facility] Comment on above: Performed By: #### B MP #### [facility] [address] [place] [address] Dr. Graciela Paz EGFR-NON AF SAUDI ARABIAN >60 Normal >=60 [facility] Comment on above: Performed By: #### B MP #### [facility] [address] [address] [address] Graciela Paz Glucose [Mass/Vol] 96 mg/dL Normal 74-106 [facility] Comment on above: Performed By: #### B MP #### [facility] [address] [place] [address] Dr. Graciela Paz Potassium [Moles/Vol] 4.2 mmol/L Normal 3.5-5.1 [facility] Comment on above: Performed By: #### B MP #### [facility] [address] [address] [address] Graciela Paz Sodium [Moles/Vol] 140 mmol/L Normal 136-145 [facility] Comment on above: Performed By: #### B MP #### [facility] [address] [address] [address] Graciela Paz Urea nitrogen [Mass/Vol] 9.0 mg/dL Normal 7.0-18.[address] [facility] Comment on above: Performed By: #### B MP #### [facility] [address] [address] [address] Graciela Paz Urea nitrogen/Creatinine [Mass ratio] 20.5 mg/mg Normal [facility] Comment on above: Performed By: #### B MP #### [facility] [address] [address] [address] Graciela Paz PROTIMEon 11-01-2022 INR Coag (PPP) [Relative time] 0.97 {INR} Normal [facility] Comment on above: Performed By: #### P T, PTT ####[facility] [id number] [address]Dr. Graciela Paz INR GUIDELINES SEE BELOW Normal [facility] Comment on above: Result Comment: JONATHON RED INR: 2.0 - 3.0 CONDITIONS NOT LISTED BELOW 2.5 - 3.5 FOR PROSTHETIC HEART VALVE REPLACEMENT 2.5 - 3.5 RECURRENT THROMBOSIS Performed By: #### P T, PTT ####[facility] [id number] [place], [place] [address]Dr. Graciela Paz PT Coag (PPP) [Time] 10.3 s Normal 9.0-11.6 [facility] Comment on above: Performed By: #### P T, PTT ####[facility] [id number] [place], [place] [address]Dr. Graciela Paz PTTon 11-01-2022 aPTT Coag (Bld) [Time] 26.8 s Normal 22.3-36.[address] [facility] Comment on above: Performed By: #### P T, PTT ####[facility] [address] [place], [place] [address]Sk. Graciela Paz Formson 10-30-2022 Forms [id number] #1.00CD:[address] [facility] Physician Referralon 023 Physician Referral [id number]#1.00CD:[address] [facility] Screenson 10-30-2022 Screens [id number] 0#1.00CD:[address] [facility] Patient Educationon 10-28-19 23 Patient Education Urology Dietary Guidelines to Help Prevent Kidney Stones Kidney stones are deposits of minerals and salts that form inside your kidneys. Your risk of developing kidney stones may be greater depending on your diet, your lifestyle, the medicines you take, and whether you have certain medical conditions. Most people can reduce their chances of developing kidney stones by following the instructions below. Depending on your overall health and the type of kidney stones you tend to develop, your dietitian may give you more specific instructions. What are tips for following this plan? Reading food labels ? Choose foods with no salt added or low-salt labels. Limit your sodium intake to less than 1500 mg per day. ? Choose foods with calcium for each meal and snack. Try to eat about 300 mg of calcium at each meal. Foods that contain 200?500 mg of calcium per serving include: ? 8 oz (237 ml) of milk, fortified nondairy milk, and fortified fruit juice. ? 8 oz (237 ml) of kefir, yogurt, and soy yogurt. ? 4 oz (118 ml) of tofu. ? 1 oz of cheese. ? 1 cup (300 g) of dried figs. ? 1 cup (91 g) of cooked broccoli. ? 1?3 oz can of sardines or mackerel. ? Most people need 1000 to 1500 mg of calcium each day. Talk to your dietitian about how much calcium is recommended for you. Shopping ? Buy plenty of fresh fruits and vegetables. Most people do not need to avoid fruits and vegetables, even if they contain nutrients that may contribute to kidney stones. ? When shopping for convenience foods, choose: ? Whole pieces of fruit. ? Premade salads with dressing on the side. ? Low-fat fruit and yogurt smoothies. ? Avoid buying frozen meals or prepared deli foods. ? Look for foods with live cultures, such as yogurt and kefir. Cooking ? Do not add salt to food when cooking. Place a salt shaker on the table and allow each person to add his or her own salt to taste. ? Use vegetable protein, such as beans, textured vegetable protein (TVP), or tofu instead of meat in pasta, casseroles, and soups. Meal planning ? Eat less salt, if told by your dietitian. To do this: ? Avoid eating processed or premade food. ? Avoid eating fast food. ? Eat less animal protein, including cheese, meat, poultry, or fish, if told by your dietitian. To do this: ? Limit the number of times you have meat, poultry, fish, or cheese each week. Eat a diet free of meat at least 2 days a week. ? Eat only one serving each day of meat, poultry, fish, or seafood. ? When you prepare animal protein, cut pieces into small portion sizes. For most meat and fish, one serving is about the size of one deck of cards. ? Eat at least 5 servings of fresh fruits and vegetables each day. To do this: ? Keep fruits and vegetables on hand for snacks. ? Eat 1 piece of fruit or a handful of berries with breakfast. ? Have a salad and fruit at lunch. ? Have two kinds of vegetables at dinner. ? Limit foods that are high in a substance called oxalate. These include: ? Spinach. ? Rhubarb. ? Beets. ? Potato chips and maldivian fries. ? Nuts. ? If you regularly take a diuretic medicine, make sure to eat at least 1?2 fruits or vegetables high in potassium each day. These include: ? Avocado. ? Banana. ? [place], prune, carrot, or tomato juice. ? Baked potato. ? Cabbage. ? Beans and split peas. General instructions ? Drink enough fluid to keep your urine clear or pale yellow. This is the most important thing you can do. ? Talk to your health care provider and dietitian about taking daily supplements. Depending on your health and the cause of your kidney stones, you may be advised: ? Not to take supplements with vitamin C. ? To take a calcium supplement. ? To take a daily probiotic supplement. ? To take other supplements such as magnesium, fish oil, or vitamin B6. ? Take all medicines and supplements as told by your health care provider. ? Limit alcohol intake to no more than 1 drink a day for non women and 2 drinks a day for men. One drink equals 12 oz of beer, 5 oz of wine, or 1? oz of hard liquor. ? Lose weight if told by your health care provider. Work with your dietitian to find strategies and an eating plan that works best for you. What foods are not recommended? Limit your intake of the following foods, or as told by your dietitian. Talk to your dietitian about specific foods you should avoid based on the type of kidney stones and your overall health. Grains Breads. Bagels. Rolls. Baked goods. Salted crackers. Cereal. Pasta. Vegetables Spinach. Rhubarb. Beets. Canned vegetables. Pickles. Olives. Meats and other protein foods Nuts. Nut butters. Large portions of meat, poultry, or fish. Salted or cured meats. Deli meats. Hot dogs. Sausages. Dairy Cheese. Beverages Regular soft drinks. Regular vegetable juice. Seasonings and other foods Seasoning blends with salt. Salad dr (more content not included)... Normal [facility] Urology Office/Clinic Noteon 10-27-2022 Urology Office/Clinic Note Chief Complaint Gabriella hematuria HPI Staff Pt referred by Ilia Cobb Sr., D.O. due to Gabriella hematuria. CT scan done 08/26/22 @[facility] shows a nonobstructing lower pole left renal calculus measuring up to 7.5 mm. An upper pole left renal cyst measuring up to 1.7 cm. No hydronephrosis. Dysuria: denies pain and burning Incomplete bladder emptying: denies Hematuria: last seen blood about a week ago, blood comes and goes Frequency: every 2 hours Urgency: denies Nocturia: once a night Stream: denies hesitancy, strong stream Leaking: denies Post void dripping: denies Wearing pads/ Depends: denies Urge incontinence: denies Stress incontinence: sometimes Incontinence without Sensory Awareness: denies Abdominal pain: denies Flank pain: denies Sexual complaints: denies History of Present Illness Tests reviewed: reviewed UA, referral records including external CT scan and labs I have reviewed the previous health record information and history for this patient from Dr. Cobb PCP I have reviewed and verified the staff HPI to be accurate for this encounter. There have been no associated fever, chills, flank pain. Denies any urinary infections since last encounter. Review of Systems PHQ Score Initial Depression Screen Score: 0 ROS - Provider Constitutional: denies weight loss, denies hot flashes. Eyes: denies eye problems. Gastrointestinal: denies nausea, denies vomiting. Cardiovascular: denies chest pain or angina. Integumentary: no dryness Musculoskeletal: denies musculoskeletal symptoms. ENMT: denies otolaryngeal symptoms. Respiratory: no shortness of breath. Heme/Lymph: denies easy bleeding tendency, denies easy bruising tendency. Psychiatric: no confusion, no anxiety. Genitourinary: See HPI. Physical Exam Vitals & Measurements HR: 93(Peripheral) BP: 120/74 HT: 58 in HT: 148 cm WT: 94.6 kg WT: 208.12 lb BMI: 43.19 General Appearance: alert , no acute distress, well nourished, well developed female. Umanzor syndrome habitus Head: normocephalic . Eyes: normal orbit and globe. ENMT: normal examination of external ears. Chest symmetric chest rise, respirations non labored . Cardiovascular: regular rate and rhythm. Abdomen: soft, non distended, no tenderness Genitourinary: bladder nonpalpable, no flank tenderness. Skin: warm, dry, no bruising. Psychiatric: cooperative, affect appropriate for age, normal judgement, euthymic mood. Assessment/Plan [place] is a 22 yo female new patient referred by Dr. Cobb for gabriella hematuria and renal stone. ICIQ-SF 0. Pt is here with her mom. 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 Has had anesthesia before, did well. Asthma is under control. 1. Renal stone (N20.0: Calculus of kidney) CT AP w/wo con 08/26/22 @[facility] stone 7.5 mm. 1-2 mm LUP stone. An upper pole left simple renal cyst 1.7 cm. No hydronephrosis. -Skin to stone distance 13 cm. HU 440. Mild inferior rotation of kidney Urine pH 5.5. Denies self/family hx of stones. Not having pain. Intermittent gross hematuria. Explained findings from CT. Discussed management options including observation vs intervention including extracorporeal shockwave lithotripsy vs ureteroscopy with laser lithotripsy/stone basket extraction possible stent. Risks/benefits of each were discussed including but not limited to: observation- renal damage, pain or infection, growth requiring invasive procedures; ESWL- bleeding, hematoma, pain, infection, inability to break up the stone, ureteral obstruction, cardiac arrhythmias, damage to surrounding structures and need for additional procedures; ureteroscopy - bleeding, pain, infection, damage to surrounding structures, ureteral perforation, stricture, inability to treat the stone and need for additional procedures. If a stent is placed, pt understands this is not permanent and needs to be removed or exchanged within 3 months to prevent encrustation, infection, permanent renal damage and need for more invasive procedures. Pt and mother elected to proceed with ureteroscopy and laser lithotripsy -Will schedule cystoscopy, left retrograde pyelogram, left ureteroscopy, laser lithotripsy/stone extraction, left stent placement. The procedural risks, benefits, details, and treatment alternatives have been discussed with the patient. These include bleeding, infection, inability to break or retrieve all of the stone, injury to the ureter (the tube which connects the kidney to the bladder), injury to the kidney scarring of the ureter, and need for repeat procedures, among others. Full informed consent has been obtained. Will order General anesthesia. -We will notify me on the day of procedure if she wants stent on a string or not. -Metabolic stone work-up in the future -Dietary Modifications 2. Gross hematuria (R31.0: Gross hematuria) UA today negative for blood, shows trace leuks. Last saw blood 1 week ago, is intermittent. Was not having pain with blood. Dark (more content not included)... Normal [facility] Comment on above: Result Comment: Elec tronically Signed By: Arelis Yip MD\.br\Date and Time Signed: 10/27/22 13:11 EDT\.br\Electronically Co-Signed By: Teri Enciso\.br\Date and Time Co-Signed: 10/27/22 10:[address] ABD/PELV WO W CONon 08-28 CT ABD/PELV WO W CON INDICATION: Gabriella hematuria EXAMINATION: CT ABDOMEN AND PELVIS WITH CONTRAST TECHNIQUE: Helically acquired images were obtained of the abdomen and pelvis before and after intravenous administration of iodinated contrast. A radiation dose optimization technique was used for this scan. ENTERIC CONTRAST: Yes COMPARISON: 10/17/2011 ____ FINDINGS: LOWER CHEST: The visualized portions of the lung bases are clear. The heart size is within normal limits. A pericardial effusion is not identified. STOMACH: Unremarkable. LIVER: No hepatic mass or lesion is identified. Diminished hepatic attenuation suggests mild fatty infiltration of the liver. GALLBLADDER AND BILIARY TREE: No gallstones are identified. The gallbladder does not appear distended. No gallbladder wall thickening is identified. There is no visible pericholecystic fluid. No intra- or extrahepatic biliary ductal dilation is identified. PANCREAS: A pancreatic mass or lesion is not identified. The pancreatic duct does not appear dilated. SPLEEN: A splenic lesion is not identified. The spleen size is moderately enlarged at 16.0 cm, new since the prior. ADRENAL GLANDS: The adrenal glands appear normal. KIDNEYS AND URETERS: There is a nonobstructing lower pole left renal calculus measuring up to 7.5 mm. An upper pole left renal cyst, requiring no follow-up, measures up to 1.7 cm. The right kidney appears normal. There is no hydronephrosis source granulating of perinephric fat planes. The ureters are unremarkable in appearance. PERITONEUM: No free intra-abdominal air is identified. No free pelvic fluid is detected. BOWEL: No bowel distension is observed. No significant colonic diverticula are observed. LYMPH NODES: No enlarged mesenteric or retroperitoneal lymph nodes. VESSELS: An aneurysm is not identified. No calcifications are observed within the abdominal aorta. 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 UTERUS: The uterus is diminutive. No mass or distortion detected. OVARIES: Not identified. URINARY BLADDER: Unremarkable. ABDOMINAL WALL: No abdominal or pelvic wall hernia. APPENDIX: The appendix appears normal. MUSCULOSKELETAL: No lytic or blastic abnormality. IMPRESSION: 1. Nephrolithiasis, new. 2. No CT evidence of obstructive uropathy. 3. Moderate nonspecific splenomegaly, new. Electronically authenticated by: KAYCE SANDS Date: 2022-08-28 15:[address] [facility] ESTRADIOLon 03-15-2020 ESTRADIOL 20 pg/mL Normal [facility] Comment on above: Result Comment: REF VALUES FOLLICULAR PHASE 20-144 MID CYCLE 64-357 LUTEAL PHASE 56-214 POSTMENOPAUSE < 32 PREPUBERTY < 20 FEMALE 10-18Y 8-110 MALE 10-18Y < 20 ADULT MALE < 40 Performed By: #### E STRA #### [facility] [address] [place] [address] FOLLICLE STIM. HORMONEon FOLLICLE STIM. HORMONE 72.5 IU/L Normal [facility] Comment on above: Result Comment: REF VALUES FOLLICULAR 2-12 MID-CYCLE 12-25 LUTEAL PHASE 2-12 MENOPAUSE 30-150 PREPUBERTY 50% ADULT ADULT MALE 2-10 INFANTS 0-1 Performed By: #### F SH #### [facility] [address] [place] [address] GGTon 03-15-2020 Gamma glutamyl transferase [Catalytic activity/Vol] 26 U/L Normal 5 - 55 [facility] Comment on above: Performed By: #### G GT #### [address] [id number] GLUCOSEon 03-15-2020 Glucose [Mass/Vol] 91 mg/dL Normal 74 - 99 [facility] Comment on above: Performed By: #### G EDGAR #### [address] [id number] HEMOGLOBIN A1Con 03-15-2020 HbA1c (Bld) [Mass fraction] 5.3 % Normal [facility] Comment on above: Result Comment: Diag nosis of Diabetes-Adults Non-Diabetic: < or = 5.6% Increased risk for developing diabetes: 5.7-6.4% Diagnostic of diabetes: > or = 6.5% . Monitoring of Diabetes Age (y) Therapeutic Goal (%) Adults: >18 <7.0 Pediatrics: 13-18 <7.5 7-12 <8.0 0- 6 7.5-8.5 [place] [employer]. Diabetes Care 33(S1), Aug 2009. Performed By: #### H BA1E #### [facility] [address] [place] [address] HbA1c (Bld) [Mass fraction] 105 MG/DL Normal [facility] Comment on above: Performed By: #### H BA1E #### [facility] [address] [place] [address] HEPATIC FUNCTION PANELon Albumin [Mass/Vol] 4.1 g/dL Normal 3.4 - 5.0 [facility] Comment on above: Performed By: #### H EPFP #### [address] [id number] ALP [Catalytic activity/Vol] 113 U/L High 33 - 110 [facility] Comment on above: Performed By: #### H EPFP #### [address] [id number] ALT [Catalytic activity/Vol] 29 U/L Normal 7 - 45 [facility] Comment on above: Result Comment: Amy ents treated with Sulfasalazine may generate falsely decreased results for ALT. Performed By: #### H EPFP #### [address] [id number] AST [Catalytic activity/Vol] 24 U/L Normal 9 - 39 [facility] Comment on above: Performed By: #### H EPFP #### [address] [id number] Bilirubin [Mass/Vol] 0.4 mg/dL Normal 0.0 - 1.2 [facility] Comment on above: Performed By: #### H EPFP #### [address] [id number] Bilirubin.direct [Mass/Vol] 0.1 mg/dL Normal 0.0 - 0.3 [facility] Comment on above: Performed By: #### H EPFP #### [address] [id number] Protein [Mass/Vol] 6.9 g/dL Normal 6.4 - 8.2 [facility] Comment on above: Performed By: #### H EPFP #### [address] [id number] LIPID PANEL (CORONARY RISK 2 )on 03-15-2020 Cholesterol [Mass/Vol] 203 mg/dL High 0 - 199 [facility] Comment on above: Result Comment: . AGE DESIRABLE BORDERLINE HIGH HIGH 0-19 Y 0 - 169 170 - 199 >/= 200 20-24 Y 0 - 189 190 - 224 >/= 225 >24 Y 0 - 199 200 - 239 >/= 240 All ranges are based on fasting samples. Specific therapeutic targets will vary based on patient-specific cardiac risk. . Pediatric guidelines reference:Pediatrics 2011, 128(S5). Adult guidelines reference: NCEP ATPIII Guidelines, MAMI 2001, 258:2486-97 . Venipuncture immediately after or during the administration of Metamizole may lead to falsely low results. Testing should be performed immediately prior to Metamizole dosing. Performed By: #### L IPID #### [address] [id number] Cholesterol in HDL [Mass/Vol] 32.0 mg/dL Abnormal [facility] Comment on above: Result Comment: . AGE VERY LOW LOW NORMAL HIGH 0-19 Y < 35 < 40 40-45 ---- 20-24 Y ---- < 40 >45 ---- >24 Y ---- < 40 40-60 >60 . Performed By: #### L IPID #### [address] [id number] Cholesterol in LDL [Mass/Vol] 130 mg/dL High 0 - 109 [facility] Comment on above: Result Comment: . NEAR BORD AGE DESIRABLE OPTIMAL HIGH HIGH VERY HIGH 0-19 Y 0 - 109 --- 110-129 >/= 130 ---- 20-24 Y 0 - 119 --- 120-159 >/= 160 ---- >24 Y 0 - 99 100-129 130-159 160-189 >/=190 . Performed By: #### L IPID #### [address] [id number] Cholesterol in VLDL [Mass/Vol] 41 mg/dL High 0 - 40 [facility] Comment on above: Performed By: #### L IPID #### [address] [id number] Cholesterol.total/Ch olesterol in HDL [Mass ratio] 6.3 {ratio} Abnormal [facility] Comment on above: Result Comment: REF VALUES DESIRABLE < 3.4 HIGH RISK > 5.0 Performed By: #### L IPID #### [address] [id number] NON-HDL CHOLESTEROL 171 mg/dL High 0 - 119 [facility] Comment on above: Result Comment: AGE DESIRABLE BORDERLINE HIGH HIGH VERY HIGH 0-19 Y 0 - 119 120 - 144 >/= 145 >/= 160 20-24 Y 0 - 149 150 - 189 >/= 190 ---- >24 Y 30 MG/DL ABOVE LDL CHOLESTEROL GOAL . Performed By: #### L IPID #### [address] [id number] Triglyceride [Mass/Vol] 206 mg/dL High 0 - 149 [facility] Comment on above: Result Comment: . AGE DESIRABLE BORDERLINE HIGH HIGH VERY HIGH 0 D-90 D 19 - 174 ---- ---- ---- 91 D- 9 Y 0 - 74 75 - 99 >/= 100 ---- 10-19 Y 0 - 89 90 - 129 >/= 130 ---- 20-24 Y 0 - 114 115 - 149 >/= 150 ---- >24 Y 0 - 149 150 - 199 200- 499 >/= 500 . Venipuncture immediately after or during the administration of Metamizole may lead to falsely low results. Testing should be performed immediately prior to Metamizole dosing. Performed By: #### L IPID #### [address] [id number] LUTEINIZING HORMONEon 2019 LUTEINIZING HORMONE 29.3 IU/L Normal [facility] Comment on above: Result Comment: REF VALUES FOLLICULAR PHASE 1.9-12.5 MID-CYCLE 8.7-76.3 LUTEAL PHASE 0.5-16.9 POST MENOPAUSE 5.0-55.2 CHILDREN 0- 6.0 ADULT MALE 18-70 1.5- 9.3 ADULT MALE >70 3.1-34.6 Performed By: #### L H #### [facility] [address] [place] [address] THYROXINE,FREEon 03-15-2020 THYROXINE,FREE 0.80 ng/dL Normal 0.61 - 1.12 [facility] Comment on above: Result Comment: Thyr oxine Free testing is performed using different testing methodology at [facility] than at other [facility]. Direct result comparisons should only be made within the same method. . Biotin can cause falsely elevated free T4 results. Patients taking a Biotin dose of up to 10 mg/day should refrain from taking Biotin for 24 hours before sample collection. Patient taking a Biotin dose of >10 mg/day should consult with their physician or the laboratory before the blood draw. Performed By: #### T 4FRE #### [address] [id number] TSHon 03-15-2020 TSH Qn 4.05 m[IU]/L High 0.44 - 3.98 [facility] Comment on above: Result Comment: TSH testing is performed using different testing methodology at [facility] than at [facility]. Direct result comparisons should only be made within the same method. Performed By: #### T SH2 #### [address] [id number] TTG AB,IGAon 03-15-2020 TTG AB,IGA <1 Normal 0 - 14 [facility] Comment on above: Result Comment: Rachell ac disease is unlikely. False negative Tissue Transglutaminase Antibody, IgA results can occur in approximately 10% of patients with celiac disease, patients already adhering to a gluten-free diet, or patients with IgA deficiency. Performed By: #### H EPFP #### [address] [id number] MRA CHEST W WO CONTRASTon MRA CHEST W WO CONTRAST [facility] Department of Radiology [address] [place] [id number] Patient Name: KEYONA ATKINS : 2000 Sex: F Age: Race: White Pt. 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 FINDINGS: Left Ventricular Measurements Ejection Fraction 61% (normal: male = 56-78%; female = 56-78%) Stroke Volume 45 mL End Diastolic Volume 74 mL (normal: male = 77-195 ml; female = 52-141 ml) End Systolic Volume 29 mL (normal: male = 19-72 ml; female = 13-51 ml) VALVE DISEASE Aortic Valve: Appears normal. Mitral Valve: Normal. Ascending aorta 26 mm and appears slightly prominent LEFT VENTRICLE REGIONAL WALL MOTION {0 = normokinetic, 1 = hypokinetic, 2 = akinetic, 3 = dyskinetic} Normal cardiac motion Descending aorta: 15 mm in maximum anteroposterior dimension in the proximal segment of the descending thoracic aorta immediately distal to the subclavian artery origin suggesting mild coarctation of the aorta. Non-cardiac findings: MRA examination of the chest revealed the normal course of the thoracic aorta with short segment coarctation in the proximal descending thoracic aorta is appreciated but mild collateral circulation are appreciated at the intercostal arteries above and below the short segment coarctation is appreciated. IMPRESSION: 1. Global systolic LV function: Normal ejection fraction of 61%. 2. MRA examination revealed short segment coarctation with mild decreased caliber of the lumen at the proximal descending thoracic aorta as described above and mild associated collateral vascularity connecting superior to inferior to the short segment coarctation via the intercostal arteries. 3. Valvular disease: Normal valves. . Normal cardiac size and configuration. Electronically signed by:Radha Orozco. Transcribed by: [email or web address], User Resident: Electronically Signed by: RADHA OROZCO @ 04/23/2019 01:10 PM Normal [facility] Comment on above: Order Comment: , , = ========= , Ordering Provider - DEMAR COOMBS MD , MRA HEAD WO CONTRASTon 04-22 MRA HEAD WO CONTRAST [facility] Department of Radiology [address] [place] [address] Patient Name: KEYONA ATKINS : 2000 Sex: F Age: Race: White Pt. 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 CONTRAST: None. COMPARISON: None. FINDINGS: The superior cerebellar arteries, posterior inferior cerebellar arteries, and the basilar artery are within normal limits. The posterior cerebral arteries are unremarkable. The intracranial segments of the internal carotid arteries are within normal limits. There are normal anterior and middle cerebral arteries. Anterior communicating artery is patent. Posterior communicating arteries are present. The deep venous system and dural venous systems appear to be patent. IMPRESSION: No focal stenosis, occlusion, or aneurysmal dilatation. Approved by:Barak Foreman on 04/22/2019 9:58 PM EDT. I, Ayana Cary, have reviewed the images and report and concur with these findings. Electronically signed by:Ayana Cary. Transcribed by: [email or web address], User Resident: BARAK FOREMAN Electronically Signed by: AYANA CARY @ 04/23/2019 06:22 PM I personally read this/these film(s) with this resident Normal [facility] Comment on above: Order Comment: , , = ========= , Ordering Provider - DEMAR COOMBS MD , MRI CARDIAC WITH AND WITHOUT CONTRASTon 04-22-2019 MRI CARDIAC WITH AND WITHOUT CONTRAST [facility] Department of Radiology [address] [place] [id number] Patient Name: KEYONA ATKINS : 2000 Sex: F Age: Race: White Pt. Location: Patient Status: D Ordered Date: 03/24/2019 3:30:00 PM Completed Date: 04/22/2019 01:00 PM Requesting Provider: DEMAR SCHUSTER Attending Provider: DEMAR SCHUSTER Report Copy To: MARIA DE JESUS CASTRO Signs & Symptoms: Q96.9 Umanzor's syndrome, unspecified I10 History: Mattie, No FB per mother Sunday [place] auth # [id number] 03/28/19-04/27/19 *er [address] Comments: , , , Ordering Provider - DEMAR COOMBS MD , Exam: MRI CARDIAC WITH AND WITHOUT CONTRAST MRI CARDIAC WITH AND WITHOUT CONTRAST, MRA CHEST W WO CONTRAST 04/22/2019 1:00 PM EDT SIGN AND SYMPTOMS: Q96.9 Umanzor's syndrome, unspecified I10 TECHNOLOGIST COMMENTS: 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 FINDINGS: Left Ventricular Measurements Ejection Fraction 61% (normal: male = 56-78%; female = 56-78%) Stroke Volume 45 mL End Diastolic Volume 74 mL (normal: male = 77-195 ml; female = 52-141 ml) End Systolic Volume 29 mL (normal: male = 19-72 ml; female = 13-51 ml) VALVE DISEASE Aortic Valve: Appears normal. Mitral Valve: Normal. Ascending aorta 26 mm and appears slightly prominent LEFT VENTRICLE REGIONAL WALL MOTION {0 = normokinetic, 1 = hypokinetic, 2 = akinetic, 3 = dyskinetic} Normal cardiac motion Descending aorta: 15 mm in maximum anteroposterior dimension in the proximal segment of the descending thoracic aorta immediately distal to the subclavian artery origin suggesting mild coarctation of the aorta. Non-cardiac findings: MRA examination of the chest revealed the normal course of the thoracic aorta with short segment coarctation in the proximal descending thoracic aorta is appreciated but mild collateral circulation are appreciated at the intercostal arteries above and below the short segment coarctation is appreciated. IMPRESSION: 1. Global systolic LV function: Normal ejection fraction of 61%. 2. MRA examination revealed short segment coarctation with mild decreased caliber of the lumen at the proximal descending thoracic aorta as described above and mild associated collateral vascularity connecting superior to inferior to the short segment coarctation via the intercostal arteries. 3. Valvular disease: Normal valves. . Normal cardiac size and configuration. Electronically signed by:Radha Orozco. 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 TECHNIQUE: Grayscale sonography of the pelvis was performed via a transabdominal approach. FINDINGS: Uterus: 3.5 x 1.2 x 2.5 cm Endometrium: None appreciated RIGHT ovary: 1.3 x 1.8 x 0.9 cm, volume 1.0 ml LEFT ovary: 1.4 x 2.2 x 1.1 cm, volume 1.7 ml UTERUS: Small, prepubertal appearing uterus. No mass or abnormality is noted. The uterus is in normal position. RIGHT OVARY: Small right ovary. No discernible follicles. No mass. LEFT OVARY: Small left ovary without discernible follicles. No mass. FREE FLUID: No abnormal pelvic free fluid. OTHER MASSES OR ABNORMALITIES: No masses. Incidentally noted increased echogenicity of the hepatic parenchyma relative to the adjacent index organ, the right kidney. ADRENAL GLANDS: No mass or calcification in the suprarenal regions. IMPRESSION: 1. 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 2. Probable hepatic steatosis. Interpreted by: Mimi Thomas MD Signed by: Mimi Thomas MD on 10/10/2018 12:02 PM Normal [facility] Estradiol, E2on 09-25-2018 Estradiol, E2 Normal [facility] Comment on above: Result Comment: <10 Unit: pg/mL (NOTE) REFERENCE VALUE Cyrus Mean Reference Stage Age Range - - - - - - - - - - - - - - - Stage I*: 7.1 undetectable-20 (>14days and Prepubertal) Stage II: 10.5 undetectable-24 Stage III:11.6 undetectable-60 Stage IV: 12.3 15-85 Stage V: 14.5 15-350 * Puberty onset (transition from Cyrus stage I to Cyrus stage II) occurs for girls at median age of 10.5 (+/-2) years. There is evidence that it may occur up to 1 year earlier in obese girls and in -[place]aur[place] girls. Progression through Cyrus stages is variable. Cyrus stage V (adult) should be reached by age 18. ADDITIONAL INFORMATION This test was developed and its performance characteristics determined by [facility] in a manner consistent with CLIA requirements. This test has not been cleared or approved by the U.S. Food and Drug Administration. Performed at [facility] , [address], [place] [address] Anti TPO ABon 09-24-2018 Anti TPO AB 2884 IU/mL High <35 [facility] FSHon 09-24-2018 FSH 55.73 mIU/mL Normal [facility] Comment on above: Result Comment: (NOTE) FSH Reference Ranges MALE Age Range (mIU/mL) 28 days - 1 year 0.12-3.1 1 - 8 years 0.2-2.2 Adult 1.5-7.0 Cyrus Stage 1 0.2-2.2 Cyrus Stage 2 1.4-2.5 Cyrus Stage 3 0.9-4.4 Cyrus Stage 4 1.5-7.0 Cyrus Stage 5 2.0-8.3 FEMALE Age Range (mIU/mL) 28 days - 1 years 0.18-10.7 1 years - 8 years 0.8-3.2 Follicular & Luteal 1.4-8.5 Mid-cycle peak 4.5-26.0 Postmenopausal 23.0-90.0 Cyrus Stage 1 0.8-3.2 Cyrus Stage 2 0.8-8.0 Cyrus Stage 3 1.0-9.6 Cyrus Stage 4 1.0-8.8 Cyrus Stage 5 0.8-7.0 LHon 09-24-2018 LH 13.07 mIU/mL Normal [facility] Comment on above: Result Comment: (NOTE) LH Reference Ranges MALE AGE RANGE (mIU/mL) 2 weeks-11 months <4.0 12 months-8 years <0.2 Adult 0.7-5.0 Cyrus Stage 1 <0.15 Cyrus Stage 2 0.1-2.5 Cyrus Stage 3 0.1-2.5 Cyrus Stage 4 0.2-3.5 Cyrus Stage 5 0.2-3.5 FEMALE AGE RANGE (mIU/mL) 2 weeks-11 months <4.0 12 months-8 years <0.2 Follicular 1.0-5.0 Mid-cycle Peak 9.0-25.0 Luteal 1.0-6.0 Postmenopausal 10.0-35.0 Cyrus Stage 1 <0.1 Cyrus Stage 2 <2.3 Cyrus Stage 3 0.05-6.0 Cyrus Stage 4 0.2-5.8 Cyrus Stage 5 0.2-5.8 Thyroglobulin Antibodyon Thyroglobulin Antibody 13.[address] [facility] Comment on above: Result Comment: Refe rence range: 0.0 to 4.0 Unit: IU/mL (NOTE) INTERPRETIVE INFORMATION: Thyroglobulin Antibody A value of 4.0 IU/mL or less indicates a negative result for thyroglobulin antibodies. The Thyroglobulin Antibody assay is being performed using the [employer] Access DxI method. Performed by [employer] [place] [address] [email or web address], Yobany Srivastava MD, Lab. Director Performed [place] [address] Performed By: #### X THYRG #### [place] [address] Comprehensive Metabolic Pane marlo 09-23-2018 Albumin [Mass/Vol] 4.5 g/dL Normal 3.4-5.2 [facility] ALP [Catalytic activity/Vol] 117 U/L High 54-96 [facility] ALT [Catalytic activity/Vol] 18 U/L Normal <40 [facility] AST [Catalytic activity/Vol] 22 U/L Normal 15-50 [facility] Bilirubin Ql (U) 0.2 mg/dL Normal 0.1-1.0 [facility] Calcium [Mass/Vol] 10.4 mg/dL Normal 8-10.5 [facility] Chloride [Moles/Vol] 107 mmol/L High 95-106 [facility] CO2 [Moles/Vol] 20 mmol/L Low 24-35 [facility] Creatinine [Mass/Vol] 0.46 mg/dL Low 0.5-0.8 [facility] Comment on above: Result Comment: Note : New reference intervals, effective July 09, 2018. Glucose [Mass/Vol] 122 mg/dL High 60-115 [facility] Potassium [Moles/Vol] 4.0 mmol/L Normal 3.7-5.3 [facility] Protein [Mass/Vol] 7.8 g/dL Normal 6.4-8.4 [facility] Sodium [Moles/Vol] 138 mmol/L Normal 135-145 [facility] Urea nitrogen [Mass/Vol] 12 mg/dL Normal 5-18 [facility] Free T4on 09-23-2018 Free T4 [Mass/Vol] 0.8 ng/dL Normal 0.7-2.1 [facility] Hemoglobin A1Con 09-23-2018 HbA1c (Bld) [Mass fraction] 5.2 % Normal 4.0-5.6 [facility] HbA1c (Bld) [Mass fraction] 103 mg/dL Normal [facility] Comment on above: Result Comment: The eAG is derived from the A1c result using a calculation from the Diabetes Control and Complication trial and reflects the average blood glucose over approximately the past 120 days, but weighted to the past 30 days. Lipid Profileon 09-23-2018 Cholesterol [Mass/Vol] 225 mg/dL High 95-195 [facility] Comment on above: Performed By: #### L IPP #### [facility] at [facility] [place] [address] Cholesterol in HDL [Mass/Vol] 34 mg/dL Low 40-58 [facility] Comment on above: Performed By: #### L IPP #### [facility] at [facility] [address], [place] [address] Cholesterol in LDL [Mass/Vol] 113 mg/dL Normal 73-117 [facility] Comment on above: Performed By: #### L IPP #### Performed at [address] [address] Triglyceride [Mass/Vol] 390 mg/dL High 29-200 [facility] Comment on above: Performed By: #### L IPP #### Performed at [address] [address] VLDL Cholesterol 78 mg/dL High 6-20 [facility] Comment on above: Performed By: #### L IPP #### Performed at [address] [address] Hours Fasting Patient not fasting Normal [facility] Comment on above: Performed By: #### L IPP #### Performed at [address] [address] TSHon 09-23-2018 TSH Qn 6.008 uIU/mL High 0.4-4.0 [facility] Vitamin D 25 Hydroxyon 09-23 Vitamin D 25 Hydroxy 20 ng/mL Low 30-120 [facility] Comment on above: Result Comment: (NOTE) <20 considered deficient. 21-29 considered insufficient. Reference ranges are based on Endocrine Society criteria. CREATININE,SERUMon 8 Creatinine [Mass/Vol] Unable to calculate GFR due to inappropriate age/gender/creatinin e value. 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 COMPARISON: None. TECHNIQUE: After the administration of intravenous contrast, axial images were obtained through the chest. Coronal and sagittal reconstructions were generated. 75 mL of Omnipaque 350 intravenous contrast was utilized. Dose reduction techniques were achieved by using automated exposure control and/or adjustment of mA and/or kV according to patient size and/or use of iterative reconstruction technique. FINDINGS: There is a bovine arch configuration with a common origin of the right brachiocephalic and left common carotid arteries. There may be slight elongation of the aortic arch with mild kinking of the anterior wall noted at the junction between the aortic arch and the descending thoracic aorta. The left subclavian artery origin may be slightly more posterior than normally seen. There is no aortic aneurysm or dissection. 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 A normal-appearing inferior vena cava is not visualized. There is no significant lymphadenopathy. No significant pericardial effusion. No acute airspace disease, pneumothorax, or pleural effusion. There are no acute bony abnormalities or aggressive appearing bony lesions. No acute abnormalities are noted in the visualized upper abdomen. An 11 mm cyst is noted in the upper left kidney. IMPRESSION: 1. 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 2. 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 Normal [facility] IMPRESSION: 1. 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 2. 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 COMPARISON: None. TECHNIQUE: After the administration of intravenous contrast, axial images were obtained through the chest. Coronal and sagittal reconstructions were generated. 75 mL of Omnipaque 350 intravenous contrast was utilized. Dose reduction techniques were achieved by using automated exposure control and/or adjustment of mA and/or kV according to patient size and/or use of iterative reconstruction technique. FINDINGS: There is a bovine arch configuration with a common origin of the right brachiocephalic and left common carotid arteries. There may be slight elongation of the aortic arch with mild kinking of the anterior wall noted at the junction between the aortic arch and the descending thoracic aorta. The left subclavian artery origin may be slightly more posterior than normally seen. There is no aortic aneurysm or dissection. 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 A normal-appearing inferior vena cava is not visualized. There is no significant lymphadenopathy. No significant pericardial effusion. No acute airspace disease, pneumothorax, or pleural effusion. There are no acute bony abnormalities or aggressive appearing bony lesions. No acute abnormalities are noted in the visualized upper abdomen. An 11 mm cyst is noted in the upper left kidney. 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 COMPARISON: None. TECHNIQUE: After the administration of intravenous contrast, axial images were obtained through the chest. Coronal and sagittal reconstructions were generated. 75 mL of Omnipaque 350 intravenous contrast was utilized. Dose reduction techniques were achieved by using automated exposure control and/or adjustment of mA and/or kV according to patient size and/or use of iterative reconstruction technique. FINDINGS: There is a bovine arch configuration with a common origin of the right brachiocephalic and left common carotid arteries. There may be slight elongation of the aortic arch with mild kinking of the anterior wall noted at the junction between the aortic arch and the descending thoracic aorta. The left subclavian artery origin may be slightly more posterior than normally seen. There is no aortic aneurysm or dissection. 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 A normal-appearing inferior vena cava is not visualized. There is no significant lymphadenopathy. No significant pericardial effusion. No acute airspace disease, pneumothorax, or pleural effusion. There are no acute bony abnormalities or aggressive appearing bony lesions. No acute abnormalities are noted in the visualized upper abdomen. An 11 mm cyst is noted in the upper left kidney. IMPRESSION IMPRESSION: 1. 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 2. 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 Invalid Interpretation Code RADIOLOGY X-LEPAXSCET-MGX,IGAon 2017 TTG- IGA <2 Normal 0-3 [facility] Comment on above: Result Comment: (NOT E) Negative 0 - 3 Weak Positive 4 - 10 Positive >10 Tissue Transglutaminase (tTG) has been identified as the endomysial antigen. Studies have demonstr- ated that endomysial IgA antibodies have over 99% specificity for gluten sensitive enteropathy. PERFORMED AT [facility] Performed By: #### C MPF, TSH2, LIP2, T42, ACBC #### Testing performed at [address] [address] #### LTTG #### Testing performed at [address] [address] 25 0H VITAMIN D LEVELon 06-13 25 0H VITAMIN D LEVEL 16.5 NG/ML Low >30 [facility] Comment on above: Result Comment: DEFICIENT <20 NG/ML INSUFFICIENT 20-<30 NG/ML SUFFICIENT 30-100 NG/ML POTENTIAL TOXICITY >100 NG/ML Performed By: #### V ITD #### Testing performed at [address] [address] CBCon 06-22-2018 ABSOLUTE BAS 0.0 X10 Normal [facility] Comment on above: Performed By: #### C MPF, TSH2, LIP2, T42, ACBC #### Testing performed at [address] [address] #### LTTG #### Testing performed at [address] [address] ABSOLUTE EOS 0.30 X10 Normal [facility] Comment on above: Performed By: #### C MPF, TSH2, LIP2, T42, ACBC #### Testing performed at [address] [address] #### LTTG #### Testing performed at [address] [address] ABSOLUTE NEUTROPHIL COUNT 3.0 x10 Normal 1.0-7.0 [facility] Comment on above: Performed By: #### C MPF, TSH2, LIP2, T42, ACBC #### Testing performed at [address] [address] #### LTTG #### Testing performed at [address] [address] Basophils/100 WBC (Bld) 0.5 % Normal 0.0-2.0 [facility] Comment on above: Performed By: #### C MPF, TSH2, LIP2, T42, ACBC #### Testing performed at [address] [address] #### LTTG #### Testing performed [address] [address] DTYPE AUTO DIFF Normal [facility] Comment on above: Performed By: #### C MPF, TSH2, LIP2, T42, ACBC #### Testing performed at [address] [address] #### LTTG #### Testing performed [address] [place] [address] Eosinophils/100 WBC (Bld) 4.8 % Normal 0.0-11.0 [facility] Comment on above: Performed By: #### C MPF, TSH2, LIP2, T42, ACBC #### Testing performed at [address] [address] #### LTTG #### Testing performed at [address] [place] [address] Lymphocytes (Bld) [#/Vol] 1.50 X10 Normal [facility] Comment on above: Performed By: #### C MPF, TSH2, LIP2, T42, ACBC #### Testing performed at [address] [address] #### LTTG #### Testing performed at [address] [place] [address] Lymphocytes/100 WBC (Bld) 29.0 % Normal 20.0-55.0 [facility] Comment on above: Performed By: #### C MPF, TSH2, LIP2, T42, ACBC #### Testing performed at [address] [address] #### LTTG #### Testing performed at [address] [place] [address] Monocytes (Bld) [#/Vol] 0.5 X10 Normal [facility] Comment on above: Performed By: #### C MPF, TSH2, LIP2, T42, ACBC #### Testing performed at [address] [address] #### LTTG #### Testing performed at [address] [place] [address] Monocytes/100 WBC (Bld) 9.6 % Normal 0.0-10.0 [facility] Comment on above: Performed By: #### C MPF, TSH2, LIP2, T42, ACBC #### Testing performed at [address] [address] #### LTTG #### Testing performed at [address] [place] [address] Neutrophils/100 WBC (Bld) 56.1 % Normal 37.0-75.0 [facility] Comment on above: Performed By: #### C MPF, TSH2, LIP2, T42, ACBC #### Testing performed at [address] [address] #### LTTG #### Testing performed at [address] [address] Erythrocyte distribution width (RBC) [Ratio] 15.2 % High 11.5-14.5 [facility] Comment on above: Performed By: #### C MPF, TSH2, LIP2, T42, ACBC #### Testing performed at [address] [address] #### LTTG #### Testing performed at [address] [place] [address] Hematocrit (Bld) [Volume fraction] 37.0 % Normal 36.0-48.0 [facility] Comment on above: Performed By: #### C MPF, TSH2, LIP2, T42, ACBC #### Testing performed at [address] [address] #### LTTG #### Testing performed at [address] [place] [address] Hemoglobin (Bld) [Mass/Vol] 12.1 g/dL Normal 12.0-16.0 [facility] Comment on above: Performed By: #### C MPF, TSH2, LIP2, T42, ACBC #### [place] [address] #### LTTG #### Testing performed at [address] [place] [address] MCH (RBC) [Entitic mass] 28.1 pg Normal 26.0-35.0 [facility] Comment on above: Performed By: #### C MPF, TSH2, LIP2, T42, ACBC #### Testing performed at [address] [address] #### LTTG #### Testing performed at [address] [address] MCHC (RBC) [Mass/Vol] 32.7 g/dL Normal 27.0-37.0 [facility] Comment on above: Performed By: #### C MPF, TSH2, LIP2, T42, ACBC #### Testing performed at [address] [address] #### LTTG #### Testing performed at [address] [address] MCV (RBC) [Entitic vol] 85.8 fL Normal 80.0-100.0 [facility] Comment on above: Performed By: #### C MPF, TSH2, LIP2, T42, ACBC #### Testing performed at [address] [address] #### LTTG #### Testing performed at [address] [address] Platelet mean volume (Bld) [Entitic vol] 8.2 fL Normal 7.4-11.0 [facility] Comment on above: Performed By: #### C MPF, TSH2, LIP2, T42, ACBC #### Testing performed at [address] [address] #### LTTG #### Testing performed at [address] [place] [place] [address] Platelets (Bld) [#/Vol] 194 /cmm Normal 130.0-400.0 [facility] Comment on above: Performed By: #### C MPF, TSH2, LIP2, T42, ACBC #### Testing performed at [address] [address] #### LTTG #### Testing performed at [address] [place] [address] RBC (Bld) [#/Vol] 4.32 /cmm Normal 4.0-5.4 [facility] Comment on above: Performed By: #### C MPF, TSH2, LIP2, T42, ACBC #### Testing performed at [address] [address] #### LTTG #### Testing performed at [address] [address] WBC (Bld) [#/Vol] 5.3 /cmm Normal 3.6-13.0 [facility] Comment on above: Performed By: #### C MPF, TSH2, LIP2, T42, ACBC #### Testing performed at [address] [address] #### LTTG #### Testing performed at [address] [place] [address] CMP FASTINGon 06-22-2018 Calcium [Mass/Vol] 10.0 mg/dL Normal 8.8-10.7 [facility] Comment on above: Performed By: #### C MPF, TSH2, LIP2, T42, ACBC #### Testing performed at [address] [address] #### LTTG #### Testing performed at [address] [place] [address] Chloride [Moles/Vol] 104 mmol/L Normal 98-107 [facility] Comment on above: Performed By: #### C MPF, TSH2, LIP2, T42, ACBC #### Testing performed at [address] [address] #### LTTG #### Testing performed at [place] [address] [place] [address] CO2 [Moles/Vol] 21 mmol/L Low 22-30 [facility] Comment on above: Performed By: #### C MPF, TSH2, LIP2, T42, ACBC #### Testing performed at [address] [address] #### LTTG #### Testing performed at [address] [place] [address] Glucose [Mass/Vol] 95 mg/dL Normal 70-100 [facility] Comment on above: Result Comment: NORMAL <100 mg/dL PREDIABETES 101-126 mg/dL DIABETES 126 mg/dL or higher Performed By: #### C MPF, TSH2, LIP2, T42, ACBC #### Testing performed at [address] [address] #### LTTG #### Testing performed at [address] [place] [address] Potassium [Moles/Vol] 4.0 mmol/L Normal 3.5-5.1 [facility] Comment on above: Performed By: #### C MPF, TSH2, LIP2, T42, ACBC #### Testing performed at [address] [address] #### LTTG #### Testing performed at [address] [place] [address] Sodium [Moles/Vol] 137 mmol/L Normal 136-145 [facility] Comment on above: Performed By: #### C MPF, TSH2, LIP2, T42, ACBC #### Testing performed at [address] [address] #### LTTG #### Testing performed at [place] [address] [place] [address] A:G RATIO 1.4 RATIO Normal 1.3-2.2 [facility] Comment on above: Performed By: #### C MPF, TSH2, LIP2, T42, ACBC #### Testing performed at [address] [address] #### LTTG #### Testing performed at [address] [place] [address] Albumin [Mass/Vol] 4.3 G/dl Normal 3.5-5.0 [facility] Comment on above: Performed By: #### C MPF, TSH2, LIP2, T42, ACBC #### Testing performed at [address] [address] #### LTTG #### Testing performed at [address] [place] [address] ALP [Catalytic activity/Vol] 149 U/L High 38-126 [facility] Comment on above: Performed By: #### C MPF, TSH2, LIP2, T42, ACBC #### Testing performed at [address] [address] #### LTTG #### Testing performed at [address] [place] [address] ALT [Catalytic activity/Vol] 21 U/L Normal 14-54 [facility] Comment on above: Performed By: #### C MPF, TSH2, LIP2, T42, ACBC #### Testing performed at [address] [address] #### LTTG #### Testing performed at [address] [place] [address] AST [Catalytic activity/Vol] 23 U/L Normal 15-41 [facility] Comment on above: Performed By: #### C MPF, TSH2, LIP2, T42, ACBC #### Testing performed at [address] [address] #### LTTG #### Testing performed at [address] [place] [address] Bilirubin [Mass/Vol] 0.6 mg/dL Normal 0.2-1.9 [facility] Comment on above: Performed By: #### C MPF, TSH2, LIP2, T42, ACBC #### Testing performed at [address] [address] #### LTTG #### Testing performed at [address] [place] [address] Creatinine [Mass/Vol] 0.5 mg/dL Low 0.52-1.04 [facility] Comment on above: Performed By: #### C MPF, TSH2, LIP2, T42, ACBC #### Testing performed at [address] [address] #### LTTG #### Testing performed at [address] [place] [address] GFR/1.73 sq M predicted among non-blacks MDRD (S/P/Bld) [Vol rate/Area] Unable to calculate GFR due to inappropriate age/gender/creatinin e value. Normal [facility] Comment on above: Performed By: #### C MPF, TSH2, LIP2, T42, ACBC #### Testing performed at [address] [address] #### LTTG #### Testing performed at [address] [address] Protein [Mass/Vol] 7.4 g/dL Normal 6.3-8.6 [facility] Comment on above: Performed By: #### C MPF, TSH2, LIP2, T42, ACBC #### Testing performed at [address] [address] #### LTTG #### Testing performed at [address] [address] Urea nitrogen [Mass/Vol] 10 mg/dL Normal 7-20 [facility] Comment on above: Performed By: #### C MPF, TSH2, LIP2, T42, ACBC #### Testing performed at [address] [address] #### LTTG #### Testing performed at [facility] [address] [place] [address] FREE T4on 06-22-2018 Free T4 [Mass/Vol] 0.68 ng/dL Low 0.93-1.60 [facility] Comment on above: Performed By: #### C MPF, TSH2, LIP2, T42, ACBC #### Testing performed at [address] [address] #### LTTG #### Testing performed at [address] [place] [address] HEMOGLOBIN A1Con 06-22-2018 HbA1c (Bld) [Mass fraction] 5.2 % Normal <6 [facility] Comment on above: Result Comment: NORMAL <5.7% PREDIABETES 5.7-6.4% DIABETES 6.5% OR HIGHER Performed By: #### H A1CT #### Testing performed at [address] [address] HbA1c (Bld) [Mass fraction] 103 mg/dL Normal [facility] Comment on above: Performed By: #### H A1CT #### Testing performed at [address] [address] LIPID PROFILEon 06-22-2018 Cholesterol [Mass/Vol] 234 mg/dL High 82-199 [facility] Comment on above: Performed By: #### C MPF, TSH2, LIP2, T42, ACBC #### Testing performed at [address] [address] #### LTTG #### Testing performed at [address] [place] [address] Cholesterol in HDL [Mass/Vol] 39 mg/dL Low 40-60 [facility] Comment on above: Performed By: #### C MPF, TSH2, LIP2, T42, ACBC #### Testing performed at [address] [address] #### LTTG #### Testing performed at [facility] [address] [place] [address] Cholesterol in LDL [Mass/Vol] 154 mg/dL High 0-100 [facility] Comment on above: Performed By: #### C MPF, TSH2, LIP2, T42, ACBC #### Testing performed at [address] [address] #### LTTG #### Testing performed at [address] [address] Cholesterol in VLDL [Mass/Vol] 41 mg/dL High 5.0-25.0 [facility] Comment on above: Performed By: #### C MPF, TSH2, LIP2, T42, ACBC #### Testing performed at [address] [address] #### LTTG #### Testing performed at [address] [address] Cholesterol.total/Ch olesterol in HDL [Mass ratio] 6.00 {ratio} Normal [facility] Comment on above: Result Comment: RISK TOTAL/HDL RATIO MEN WOMEN 1/2 AVERAGE 3.43 3.27 AVERAGE 4.97 4.44 2X AVERAGE 9.55 7.05 3X AVERAGE 23.99 11.04 Performed By: #### C MPF, TSH2, LIP2, T42, ACBC #### Testing performed at [address] [address] #### LTTG #### Testing performed at [address] [address] Triglyceride [Mass/Vol] 203 mg/dL High <150 [facility] Comment on above: Performed By: #### C MPF, TSH2, LIP2, T42, ACBC #### Testing performed at [address] [address] #### LTTG #### Testing performed at [address] [address] TSHon 06-22-2018 TSH Qn 5.424 uIU/ML Normal 0.36-5.80 [facility] Comment on above: Performed By: #### C MPF, TSH2, LIP2, T42, ACBC #### Testing performed at [facility] [address] [place] [address] #### LTTG #### Testing performed at [facility] [address] [place] [address] [place] [address] Vital Signs Date Time Vital Sign Value Performing Clinician Facility 03-14-2023 09:07-0400 Blood Pressure Location Arelis Lue [facility] 03-14-2023 09:07-0400 Diastolic blood pressure 87 mm[Hg] Arelis Lue [facility] 03-14-2023 09:07-0400 Heart rate 109 /min Arelis Lue [facility] 03-14-2023 09:07-0400 Respiratory rate 16 /min Arelis Lue [facility] 03-14-2023 09:07-0400 Systolic blood pressure 137 mm[Hg] Arelis Lue [facility] 10-27-2022 09:45-0400 Blood Pressure Location Arelis Lue [facility] 10-27-2022 09:45-0400 Diastolic blood pressure 74 mm[Hg] Arelis Lue [facility] 10-27-2022 09:45-0400 Heart rate 93 /min Arelis Lue [facility] 10-27-2022 09:45-0400 Systolic blood pressure 120 mm[Hg] Arelis Lue [facility] 10-04-2018 08:20-0500 BMI (Body Mass Index) 41.7 kg/m2 Hern[facility] 10-04-2018 08:20-0500 BP Di[facility] 78 [facility] 08:20-0500 BP Systolic 118 mm[Hg] [facility] 10-04-2018 08:20-0500 Height 148.6 [facility] 10-04-2018 08:20-0500 Pulse (Heart Rate) 83 /min [facility] 10-04-2018 08:20-0500 Pulse Oximetry 97 % [facility] 10-04-2018 08:20-0500 Respiratory Rate 16 /min [facility] 10-04-2018 08:20-0500 [facility] 92.08 [facility] 09-05-2018 09:01-0500 BMI (Body Mass Index) 41.29 kg/m2 [facility] Work Phone: 09-05-2018 09:01-0500 Body Temperature 98.01 [degF] [facility] Work Phone: 09-05-2018 09:01-0500 BP Diastolic 78 mm[Hg] [facility] Work Phone: 09-05-2018 09:01-0500 BP Systolic 122 mm[Hg] [facility] Work Phone: 09-05-2018 09:01-0500 Height 148.6 cm [facility] Work Phone: 09-05-2018 09:01-0500 Pulse (Heart Rate) 96 /min [facility] Work Phone: 09-05-2018 09:01-0500 Pulse Oximetry 98 % [facility] Work Phone: 09-05-2018 09:01-0500 Respiratory Rate 16 /min [facility] Work Phone: 09-05-2018 09:01-0500 Weight 91.17 kg Ilia Monson [facility] Work Phone: 07-12-2018 08:26-0500 BMI (Body Mass Index) 42.13 kg/m2 Hernesto [facility] Work Phone: 07-12-2018 08:26-0500 BP Diastolic 82 mm[Hg] Hernesto [facility] Work Phone: 07-12-2018 08:26-0500 BP Systolic 126 mm[Hg] Hernesto [facility] Work Phone: 07-12-2018 08:26-0500 Height 147.3 cm Hernesto [facility] Work Phone: 07-12-2018 08:26-0500 Pulse (Heart Rate) 125 /min Hernesto [facility] Work Phone: 07-12-2018 08:26-0500 Pulse Oximetry 97 % Hernesto [facility] Work Phone: 07-12-2018 08:26-0500 Respiratory Rate 16 /min [facility] Work Phone: 07-12-2018 08:26-0500 Weight 91.44 kg Hernesto [facility] Work Phone: Encounters Encounter Date Encounter Type Care Provider Facility Start: 09-19-2023 ambulatory Arelis Yip [facility] Start: 07-03-2023 End: 07-04-2023 ambulatory BARAK Crawford [facility] Facility:[facility] Start: 03-14-2023 End: 03-15-2023 ambulatory Arelis Yip Facility:[facility] Start: 03-14-2023 End: 03-14-2023 Patient encounter procedure Arelis Yip [facility] Start: 11-13-2022 End: 11-13-[address] LIZ WAGNER . Facility:[facility] Start: 11-13-2022 End: 11-14-2022 ambulatory Arelis Yip [facility] Start: 11-13-2022 End: 11-13-2022 Patient encounter procedure Arelis Yip [facility] Start: 11-08-2022 End: 11-09-[address] ILIA COBB Facility:[facility] Start: 11-04-2022 Encounter for preprocedural cardiovascular examination ARELIS YIP . [facility] Start: 11-04-2022 Encounter for preprocedural laboratory examination ARELIS YIP . [facility] Start: 11-01-2022 End: 11-02-[address] ILIA COBB Facility:[facility] Start: 11-01-2022 End: 11-02-2022 Encounter for preprocedural cardiovascular examination DR ILAI COBB Facility:[facility] Start: 10-27-2022 End: 10-28-2022 ambulatory Arelis Yip Facility:[facility] Start: 10-27-2022 End: 10-27-2022 Patient encounter procedure Arelis Yip [facility] Start: 09-07-2022 ambulatory Arelis Yip Facility:[facility] Start: 08-26-2022 End: 08-27-[address] ILIA COBB Facility:[facility] Start: 11-29-2018 End: 11-29-2018 Eliel Monson Work Phone: [facility] Start: 10-04-2018 End: 10-04-2018 Letter encounter Hernesto Haque Work Phone: [facility] Start: 10-04-2018 End: 10-04-2018 Office outpatient visit 25 minutes Hernesto Haque Work Phone: [facility] Comment on above: 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); Aortic arch anomaly; Chronic pulmonary hypertension; Essential hypertension, benign; Inappropriate sinus tachycardia; Mixed hyperlipidemia; Lymphedema; Obstructive sleep apnea Start: 09-12-2018 End: 09-12-2018 Patient encounter procedure LASHAE TREVINO [facility] Start: 09-12-2018 End: 09-12-2018 Office outpatient visit 15 minutes Lashae Hastings Work Phone: [facility] Comment on above: Excessive cerumen in left ear canal (Primary Dx); Abrasion of nose, initial encounter Start: 09-05-2018 End: 09-05-2018 Telephone encounter Ilia Monson Work Phone: [facility] Comment on above: Referral Start: 09-05-2018 Patient encounter procedure ILIA MONSON [facility] Start: 09-05-2018 End: 09-05-2018 Office outpatient visit 15 minutes Ilia Monson Work Phone: [facility] Comment on above: Umanzor's syndrome (P rimary Dx); Abnormal thyroid blood test; Mixed hyperlipidemia; Vitamin D deficiency Start: 08-30-2018 End: 08-30-2018 Letter encounter Hernesto Haque Work Phone: [facility] Start: 08-08-2018 End: 08-08-2018 Patient encounter procedure Hernesto Haque Work Phone: [facility] Comment on above: Arrived Start: 07-25-2018 End: 07-25-2018 Patient encounter procedure Hernesto Haque Work Phone: [facility] Comment on above: Pre-operative cardio vascular examination (Primary Dx) Start: 07-24-2018 End: 07-24-2018 Patient encounter procedure LASHAE TREVINO [facility] Start: 07-12-2018 End: 07-12-2018 Patient encounter procedure García Rojas Work Phone: [facility] Start: 07-12-2018 End: 07-12-2018 Office outpatient new 60 minutes Hernesto Haque Work Phone: [facility] Comment on above: Umanzor's syndrome (P rimary Dx); Abnormality of aortic arch branch; Tachycardia, unspecified; Morbid obesity; Mixed hyperlipidemia; Obstructive sleep apnea; Lymphedema of right lower extremity Start: 06-28-2018 End: 06-28-2018 Patient encounter procedure Addi Peterson [facility] Comment on above: Other Start: 06-26-2018 End: 06-26-2018 Patient encounter procedure Addi Peterson [facility] Comment on above: Results Start: 06-20-2018 End: 06-20-2018 Patient encounter procedure LASHAE TREVINO [facility] Start: 06-06-2018 Patient encounter procedure ILIA MONSON [facility] Procedures Date Procedure Procedure Detail Performing Clinician Start: 11-13-2022 Cystoscopic removal of ureteric stent Arelis Lue Start: 11-08-2022 Cystoscopic laser lithotripsy of ureteric calculus Arelis Lue Start: 11-08-2022 Dilation of urethra Nneka hy Lue Start: 08-08-2018 End: 08-08-2018 CT of thorax with contrast Hernesto Luis [facility] Work Phone: Tonsillectomy Arelis Lue Plan of Treatment Date Care Activity Detail Author Start: 06-22-2019 Thyrotropin Qn TSH [facility] Start: 04-13-2019 Influenza vaccination INFLUENZ A VACCINE (Season Ended) [facility] Start: 03-07-2019 End: 03-07-2019 Office Visit 03/07/2019 Office Visit Cardiovascular Medicine Hernesto Haque II, MD [address] [place] [address] [phone] [facility] Start: 03-05-2019 End: 03-05-2019 Ambulatory 03/05/2019 Office Visit Family Medicine Ilia Monson PA [address] [place] [address] [phone] [facility] Start: 12-11-2018 End: 12-11-2018 Office Visit 12/11/2018 Office Visit Otolaryngology Thao Torres MD [address] [place] [address] [phone] [facility] Start: 10-04-2018 End: 10-04-2018 Ambulatory 10/04/2018 Office Visit Cardiovascular Medicine Hernesto Haque II, MD [address] [place] [address] [phone] [facility] Start: 09-28-2018 End: 06-28-2019 LIPID PANEL W CALCULATED LDL LIPID PANEL W CALCULATED LDL Routine Mixed hyperlipidemia Expected: 09/28/2018, Expires: 06/28/2019 [facility] Work Phone: Comment on above: Expected: 09/28/2018 , Expires: 06/28/2019 Start: 09-28-2018 End: 06-28-2019 VITAMIN D (25-HYDROXY,TOTAL) VITAMIN D (25-HYDROXY,TOTAL) Routine Vitamin D deficiency Expected: 09/28/2018, Expires: 06/28/2019 [facility] Work Phone: Comment on above: Expected: 09/28/2018 , Expires: 06/28/2019 Start: 09-05-2018 End: 09-05-2018 Ambulatory [facility] Start: 08-30-2018 End: 08-30-2018 Ambulatory 08/30/2018 Office Visit Cardiovascular Medicine Hernesto Haque II, MD [address] [place] [address] [phone] [facility] Start: 07-25-2018 End: 07-25-2019 CREATININE SERUM CREATININE SERUM Routine Pre-operative cardiovascular examination Expected: 07/25/2018, Expires: 07/25/2019 [facility] Work Phone: Comment on above: Expected: 07/25/2018 , Expires: 07/25/2019 Start: 07-15-2018 End: 06-28-2019 TSH W/FT4 REFLEX TSH W/FT4 REFLEX Routine Abnormal thyroid blood test Expected: 07/15/2018, Expires: 06/28/2019 [facility] Work Phone: Comment on above: Expected: 07/15/2018 , Expires: 06/28/2019 Start: 07-12-2018 End: 07-12-2019 CT of thorax with contrast CT CHEST WITH CONTRAST Routine 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 Expected: 07/12/2018, Expires: 07/12/2019 [facility] Work Phone: Comment on above: Expected: 07/12/2018 , Expires: 07/12/2019 Start: 07-12-2018 End: 07-12-2018 Ambulatory 07/12/2018 Office Visit Cardiovascular Medicine Herensto Haque II, MD [address] [id number] [facility] Start: 04-13-2018 Influenza vaccination INFLUENZA VACC INE (#1) [facility] Work Phone: Start: 04-13-2018 Influenza vaccinatio n given SEQUENTIAL INFLUENZA VACCINE (#1) [facility] Start: 2017 Meningococcal conjug ate vaccination [facility] Work Phone: Start: 2016 Vaccination for mingo n papillomavirus [facility] Start: 2014 HIV screening HIV SCREENING DISCUSSION [facility] Work Phone: Start: 2014 Varicella vaccination [facility] Work Phone: Start: 2012 Vaccination for mingo n papillomavirus HPV VACCINE ADOL (1 - Female 3-dose series) [facility] Work Phone: Start: 2008 DTAP/TDAP/TD VACCINE (1 - Tdap) DTAP/TDAP/TD VACCINE (1 - Tdap) [facility] Work Phone: Start: 2008 Tetanus, diphtheria and acellular pertussis vaccination DTAP VACCINES (1 - Tdap) [facility] Start: 2002 Hepatitis A immunization [facility] Work Phone: Start: 2002 Wflcqiw-niahg-ntormw a vaccination [facility] Work Phone: Start: 2001 Inactivated poliovir us vaccine (product) [facility] Work Phone: Start: 2001 Hepatitis B vaccination [facility] Work Phone: Start: 2001 Tetanus vaccination TETANUS EVERY 10 YR [facility] [facility] Ambulatory ECG [place] ECG (OFFICE R EAD ONLY) Routine 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 Ordered: 07/12/2018 [facility] Work Phone: Comment on above: Ordered: 07/12/2018 Transthoracic echocardiography ECHOCARDIOGRAM Routine 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 Ordered: 07/12/2018 [facility] Work Phone: Comment on above: Ordered: 07/12/2018 Immunizations Immunization Date Immunization Notes Care Provider [facility] 04-01-2021 SARS-CoV-2 (COVID-19 ) mRNA BNT-162b2 vax Arelis Lue [facility] 03-11-2021 SARS-CoV-2 (COVID-19 ) mRNA BNT-162b2 vax Arelis Lue [facility] 11-07-2019 HPV, unspecified formulation Arelis Lue [facility] 07-09-2019 HPV, unspecified formulation Arelis Lue [facility] 05-06-2019 HPV, unspecified formulation Arelis Lue [facility] 04-29-2019 hepatitis A vaccine, unspecified formulation Arelis Lue [facility] 04-29-2019 meningococcal ACWY vaccine, unspecified formulation Arelis Lue [facility] 04-10-2019 influenza virus vacc ine, unspecified formulation Arelis Lue [facility] 09-05-2013 hepatitis A vaccine, unspecified formulation Arelis Lue [facility] 09-05-2013 meningococcal ACWY vaccine, unspecified formulation Arelis Lue [facility] 09-05-2013 tetanus toxoid, redu oj diphtheria toxoid, and acellular pertussis vaccine, adsorbed Arelis Lue [facility] 03-22-2006 diphtheria, tetanus toxoids and acellular pertussis vaccine Arelis Lue [facility] 03-22-2006 measles, mumps and rubella virus vaccine Arelis Lue [facility] 03-22-2006 poliovirus vaccine, unspecified formulation Arelis Lue [facility] 07-20-2004 influenza, whole Arelis Lue [facility] 06-29-2003 influenza virus vacc ine, unspecified formulation Arelis Lue [facility] 05-28-2003 diphtheria, tetanus toxoids and acellular pertussis vaccine Arelis Lue [facility] 05-28-2003 measles, mumps and rubella virus vaccine Arelis Lue [facility] 02-10-2002 DTaP, unspecified formulation Arelis Lue [facility] 02-10-2002 Hib, unspecified formulation Arelis Lue [facility] 02-10-2002 poliovirus vaccine, unspecified formulation Arelis Lue [facility] 2001 DTaP, unspecified formulation Arelis Lue [facility] 2001 poliovirus vaccine, unspecified formulation Arelis Lue [facility] 2001 DTaP, unspecified formulation Arelis Lue [facility] 2001 poliovirus vaccine, unspecified formulation Arelis Lue [facility] Payers Date Payer Category Payer Unknown xxxxxxxxxxxx 1. [id number] 2001 Unknown [id number] 2.16.84 [id number] 2001 Unknown [id number] 2.16.84 [id number] 2001 Unknown [id number] 2.16.84 [id number] 2001 Unknown [id number] 2.16.84 [id number] 2001 Unknown [id number] 2.16.8 [id number] 2001 Unknown [id number] 2.16.8 [id number] 2001 Unknown [id number] 2.16.8 40.1.035386.3.579.2.727 2001 Unknown [id number] 2.16.8 40.1.328458.3.579.2.727 1974 Unknown [id number] 2.16.8 [id number] 1974 Unknown [id number] 2.16.8 [id number] 1974 Unknown [id number] 2.16.8 40.1.700999.3.579.2.903 1974 Unknown [id number] 2.16.8 40.1.729825.3.579.2.727 1974 Unknown [id number] 2.16.8 [id number] 1974 Unknown [id number] 2.16.8 [id number] 1959 Unknown [id number] Social History Date Type Detail Facility Start: 07-12-2018 End: 03-14-2023 Tobacco smoking status NHIS Never smoker [facility] Sex Assigned At Not on file [facility] Work Phone: Tobacco smoking status Never [facility] Sex Assigned At Female [facility] Functional Status Date Assessment Result Facility 03-14-2023 Functional Status N/A [facility] 10-27-2022 Functional Status N/A [facility] Discharge instructions 03-14-2023 Note Date & Type Note Facility 03-14-2023 Hospital Discharg e instructions Patient Education 03/14/2023 09:49:19 Dietary Guidelines to Help Prevent Kidney Stones Dietary Guidelines to Help Prevent Kidney Stones Kidney stones are deposits of minerals and salts that form inside your kidneys. Your risk of developing kidney stones may be greater depending on your diet, your lifestyle, the medicines you take, and whether you have certain medical conditions. Most people can lower their chances of developing kidney stones by following the instructions below. Your dietitian may give you more specific instructions depending on your overall health and the type of kidney stones you tend to develop. What are tips for following this plan? Reading food labels Choose foods with no salt added or low-salt labels. Limit your salt (sodium) intake to less than 1,500 mg a day. Choose foods with calcium for each meal and snack. Try to eat about 300 mg of calcium at each meal. Foods that contain 200 500 mg of calcium a serving include: ?8 oz (237 mL) of milk, pqjwcld-rwpkkjbhhabu-tuuck milk, and calcium-fortifiedfruit juice. Calcium-fortified means that calcium has been added to these drinks. ?8 oz (237 mL) of kefir, yogurt, and soy yogurt. ?4 oz (114 g) of tofu. ?1 oz (28 g) of cheese. ?1 cup (150 g) of dried figs. ?1 cup (91 g) of cooked broccoli. ?One 3 oz (85 g) can of sardines or mackerel. Most people need 1,000 1,500 mg of calcium a day. Talk to your dietitian about how much calcium is recommended for you. Shopping Buy plenty of fresh fruits and vegetables. Most people do not need to avoid fruits and vegetables, even if these foods contain nutrients that may contribute to kidney stones. When shopping for convenience foods, choose: ?Whole pieces of fruit. ?Pre-made salads with dressing on the side. ?Low-fat fruit and yogurt smoothies. Avoid buying frozen meals or prepared deli foods. These can be high in sodium. Look for foods with live cultures, such as yogurt and kefir. Choose high-fiber grains, such as whole-wheat breads, oat bran, and wheat cereals. Cooking Do not add salt to food when cooking. Place a salt shaker on the table and allow each person to add his or her own salt to taste. Use vegetable protein, such as beans, textured vegetable protein (TVP), or tofu, instead of meat in pasta, casseroles, and soups. Meal planning Eat less salt, if told by your dietitian. To do this: ?Avoid eating processed or pre-made food. ?Avoid eating fast food. Eat less animal protein, including cheese, meat, poultry, or fish, if told by your dietitian. To do this: ?Limit the number of times you have meat, poultry, fish, or cheese each week. Eat a diet free of meat at least 2 days a week. ?Eat only one serving each day of meat, poultry, fish, or seafood. ?When you prepare animal protein, cut pieces into small portion sizes. For most meat and fish, one serving is about the size of the palm of your hand. Eat at least five servings of fresh fruits and vegetables each day. To do this: ?Keep fruits and vegetables on hand for snacks. ?Eat one piece of fruit or a handful of berries with breakfast. ?Have a salad and fruit at lunch. ?Have two kinds of vegetables at dinner. Limit foods that are high in a substance called oxalate. These include: ?Spinach (cooked), rhubarb, beets, sweet potatoes, and Canadian chard. ?Peanuts. ?Potato chips, maldivian fries, and baked potatoes with skin on. ?Nuts and nut products. ?Chocolate. If you regularly take a diuretic medicine, make sure to eat at least 1 or 2 servings of fruits or vegetables that are high in potassium each day. These include: ?Avocado. ?Banana. ?[place], prune, carrot, or tomato juice. ?Baked potato. ?Cabbage. ?Beans and split peas. Lifestyle Drink enough fluid to keep your urine pale yellow. This is the most important thing you can do. Spread your fluid intake throughout the day. If you drink alcohol: ?Limit how much you use to: ?0 1 drink a day for women who are not . ?0 2 drinks a day for men. ?Be aware of how much alcohol is in your drink. In the [place] one drink equals one 12 oz bottle of beer (355 mL), one 5 oz glass of wine (148 mL), or one 1 oz glass of hard liquor (44 mL). Lose weight if told by your health care provider. Work with your dietitian to find an eating plan and weight loss strategies that work best for you. General information Talk to your health care provider and dietitian about taking daily supplements. You may be told the following depending on your health and the cause of your kidney stones: ?Not to take supplements with vitamin C. ?To take a calcium supplement. ?To take a daily probiotic supplement. ?To take other supplements such as magnesium, fish oil, or vitamin B6. Take tvur-caq-yggtbne and prescription medicines only as told by your health care provider. These include supplements. What foods should I limit? Limit your intake of the following foods, or eat them as told by your dietitian. Vegetables Spinach. Rhubarb. Beets. Canned vegetables. Pickles. Olives. Baked potatoes with skin. Grains Wheat bran. Baked goods. Salted crackers. Cereals high in sugar. Meats and other proteins Nuts. Nut butters. Large portions of meat, poultry, or fish. Salted, precooked, or cured meats, such as sausages, meat loaves, and hot dogs. Dairy Cheese. Beverages Regular soft drinks. Regular vegetable juice. Seasonings and condiments Seasoning blends with salt. Salad dressings. Soy sauce. Ketchup. Barbecue sauce. Other foods Canned soups. Canned pasta sauce. Casseroles. Pizza. Lasagna. Frozen meals. Potato chips. Qatari fries. The items listed above may not be a complete list of foods and beverages you should limit. Contact a dietitian for more information. What foods should I avoid? Talk to your dietitian about specific foods you should avoid based on the type of kidney stones you have and your overall health. Fruits Grapefruit. The item listed above may not be a complete list of foods and beverages you should avoid. Contact a dietitian for more information. Summary Kidney stones are deposits of minerals and salts that form inside your kidneys. You can lower your risk of kidney stones by making changes to your diet. The most important thing you can do is drink enough fluid. Drink enough fluid to keep your urine pale yellow. Talk to your dietitian about how much calcium you should have each day, and eat less salt and animal protein as told by your dietitian. This information is not intended to replace advice given to you by your health care provider. Make sure you discuss any questions you have with your health care provider. Document Revised: 04/10/2022 Document Reviewed: 04/10/2022 [employer] Patient Education 2022 [employer]. Follow Up Care 11/13/2022 09:26:52 With:Phi MTZ, PASQUALE Romo, URO Address: When:Within 6 Month(s) Comments:w/ EDEN and RASHEEDA and 24 hr urine [facility] [employer] History and physical note 11-13-2022 Note Date & Type Note Facility 11-13-2022 Note [id number]:[id number] [facility] Clinical Note 11-13-2022 Note Date & Type Note Facility 11-13-2022 Note Cystoscopy with Sten t Removal ? Voiding after the procedure: there may be some pain, burning, urgency, frequency and blood tinged urine following the procedure. These symptoms usually resolve within 2-5 days. Drink the amount of fluid it takes to keep the urine pink to yellow or clear in color. Drinking enough water and fluids will help to ease any discomfort after your procedure. ? If you are having problems that seem out of the ordinary, please call. ? If unable to contact your physician and you feel it is an emergency, go to the nearest emergency room or call 911 ? Diet ? you may resume your normal diet. ? Activity ? you may resume your normal activities ? Call if you have a fever over 100 degrees. Urology Dietary Guidelines to Help Prevent Kidney Stones Kidney stones are deposits of minerals and salts that form inside your kidneys. Your risk of developing kidney stones may be greater depending on your diet, your lifestyle, the medicines you take, and whether you have certain medical conditions. Most people can reduce their chances of developing kidney stones by following the instructions below. Depending on your overall health and the type of kidney stones you tend to develop, your dietitian may give you more specific instructions. What are tips for following this plan? Reading food labels ? Choose foods with no salt added or low-salt labels. Limit your sodium intake to less than 1500 mg per day. ? Choose foods with calcium for each meal and snack. Try to eat about 300 mg of calcium at each meal. Foods that contain 200?500 mg of calcium per serving include: ? 8 oz (237 ml) of milk, fortified nondairy milk, and fortified fruit juice. ? 8 oz (237 ml) of kefir, yogurt, and soy yogurt. ? 4 oz (118 ml) of tofu. ? 1 oz of cheese. ? 1 cup (300 g) of dried figs. ? 1 cup (91 g) of cooked broccoli. ? 1?3 oz can of sardines or mackerel. ? Most people need 1000 to 1500 mg of calcium each day. Talk to your dietitian about how much calcium is recommended for you. Shopping ? Buy plenty of fresh fruits and vegetables. Most people do not need to avoid fruits and vegetables, even if they contain nutrients that may contribute to kidney stones. ? When shopping for convenience foods, choose: ? Whole pieces of fruit. ? Premade salads with dressing on the side. ? Low-fat fruit and yogurt smoothies. ? Avoid buying frozen meals or prepared deli foods. ? Look for foods with live cultures, such as yogurt and kefir. Cooking ? Do not add salt to food when cooking. Place a salt shaker on the table and allow each person to add his or her own salt to taste. ? Use vegetable protein, such as beans, textured vegetable protein (TVP), or tofu instead of meat in pasta, casseroles, and soups. Meal planning ? Eat less salt, if told by your dietitian. To do this: ? Avoid eating processed or premade food. ? Avoid eating fast food. ? Eat less animal protein, including cheese, meat, poultry, or fish, if told by your dietitian. To do this: ? Limit the number of times you have meat, poultry, fish, or cheese each week. Eat a diet free of meat at least 2 days a week. ? Eat only one serving each day of meat, poultry, fish, or seafood. ? When you prepare animal protein, cut pieces into small portion sizes. For most meat and fish, one serving is about the size of one deck of cards. ? Eat at least 5 servings of fresh fruits and vegetables each day. To do this: ? Keep fruits and vegetables on hand for snacks. ? Eat 1 piece of fruit or a handful of berries with breakfast. ? Have a salad and fruit at lunch. ? Have two kinds of vegetables at dinner. ? Limit foods that are high in a substance called oxalate. These include: ? Spinach. ? Rhubarb. ? Beets. ? Potato chips and maldivian fries. ? Nuts. ? If you regularly take a diuretic medicine, make sure to eat at least 1?2 fruits or vegetables high in potassium each day. These include: ? Avocado. ? Banana. ? [place], prune, carrot, or tomato juice. ? Baked potato. ? Cabbage. ? Beans and split peas. General instructions ? Drink enough fluid to keep your urine clear or pale yellow. This is the most important thing you can do. ? Talk to your health care provider and dietitian about taking daily supplements. Depending on your health and the cause of your kidney stones, you may be advised: ? Not to take supplements with vitamin C. ? To take a calcium supplement. ? To take a daily probiotic supplement. ? To take other supplements such as magnesium, fish oil, or vitamin B6. ? Take all medicines and supplements as told by your health care provider. ? Limit alcohol intake to no more than 1 drink a day for non women and 2 drinks a day for men. One drink equals 12 oz of beer, 5 oz of wine, or 1? oz of hard liquor. ? Lose weight if told by your health care provider. Work with your dietitian to find strategie (more content not included)... [facility] Hospital Discharge instructions 11-13-2022 Note Date & Type Note Facility 11-13-2022 Hospital Discharg e instructions Patient Education 11/13/2022 09:24:55 Dietary Guidelines to Help Prevent Kidney Stones Dietary Guidelines to Help Prevent Kidney Stones Kidney stones are deposits of minerals and salts that form inside your kidneys. Your risk of developing kidney stones may be greater depending on your diet, your lifestyle, the medicines you take, and whether you have certain medical conditions. Most people can reduce their chances of developing kidney stones by following the instructions below. Depending on your overall health and the type of kidney stones you tend to develop, your dietitian may give you more specific instructions. What are tips for following this plan? Reading food labels Choose foods with no salt added or low-salt labels. Limit your sodium intake to less than 1500 mg per day. Choose foods with calcium for each meal and snack. Try to eat about 300 mg of calcium at each meal. Foods that contain 200 500 mg of calcium per serving include: ?8 oz (237 ml) of milk, fortified nondairy milk, and fortified fruit juice. ?8 oz (237 ml) of kefir, yogurt, and soy yogurt. ?4 oz (118 ml) of tofu. ?1 oz of cheese. ?1 cup (300 g) of dried figs. ?1 cup (91 g) of cooked broccoli. ?1 3 oz can of sardines or mackerel. Most people need 1000 to 1500 mg of calcium each day. Talk to your dietitian about how much calcium is recommended for you. Shopping Buy plenty of fresh fruits and vegetables. Most people do not need to avoid fruits and vegetables, even if they contain nutrients that may contribute to kidney stones. When shopping for convenience foods, choose: ?Whole pieces of fruit. ?Premade salads with dressing on the side. ?Low-fat fruit and yogurt smoothies. Avoid buying frozen meals or prepared deli foods. Look for foods with live cultures, such as yogurt and kefir. Cooking Do not add salt to food when cooking. Place a salt shaker on the table and allow each person to add his or her own salt to taste. Use vegetable protein, such as beans, textured vegetable protein (TVP), or tofu instead of meat in pasta, casseroles, and soups. Meal planning Eat less salt, if told by your dietitian. To do this: ?Avoid eating processed or premade food. ?Avoid eating fast food. Eat less animal protein, including cheese, meat, poultry, or fish, if told by your dietitian. To do this: ?Limit the number of times you have meat, poultry, fish, or cheese each week. Eat a diet free of meat at least 2 days a week. ?Eat only one serving each day of meat, poultry, fish, or seafood. ?When you prepare animal protein, cut pieces into small portion sizes. For most meat and fish, one serving is about the size of one deck of cards. Eat at least 5 servings of fresh fruits and vegetables each day. To do this: ?Keep fruits and vegetables on hand for snacks. ?Eat 1 piece of fruit or a handful of berries with breakfast. ?Have a salad and fruit at lunch. ?Have two kinds of vegetables at dinner. Limit foods that are high in a substance called oxalate. These include: ?Spinach. ?Rhubarb. ?Beets. ?Potato chips and maldivian fries. ?Nuts. If you regularly take a diuretic medicine, make sure to eat at least 1 2 fruits or vegetables high in potassium each day. These include: ?Avocado. ?Banana. ?[place], prune, carrot, or tomato juice. ?Baked potato. ?Cabbage. ?Beans and split peas. General instructions Drink enough fluid to keep your urine clear or pale yellow. This is the most important thing you can do. Talk to your health care provider and dietitian about taking daily supplements. Depending on your health and the cause of your kidney stones, you may be advised: ?Not to take supplements with vitamin C. ?To take a calcium supplement. ?To take a daily probiotic supplement. ?To take other supplements such as magnesium, fish oil, or vitamin B6. Take all medicines and supplements as told by your health care provider. Limit alcohol intake to no more than 1 drink a day for non women and 2 drinks a day for men. One drink equals 12 oz of beer, 5 oz of wine, or 1 oz of hard liquor. Lose weight if told by your health care provider. Work with your dietitian to find strategies and an eating plan that works best for you. What foods are not recommended? Limit your intake of the following foods, or as told by your dietitian. Talk to your dietitian about specific foods you should avoid based on the type of kidney stones and your overall health. Grains Breads. Bagels. Rolls. Baked goods. Salted crackers. Cereal. Pasta. Vegetables Spinach. Rhubarb. Beets. Canned vegetables. Pickles. Olives. Meats and other protein foods Nuts. Nut butters. Large portions of meat, poultry, or fish. Salted or cured meats. Deli meats. Hot dogs. Sausages. Dairy Cheese. Beverages Regular soft drinks. Regular vegetable juice. Seasonings and other foods Seasoning blends with salt. Salad dressings. Canned soups. Soy sauce. Ketchup. Barbecue sauce. Canned pasta sauce. Casseroles. Pizza. Lasagna. Frozen meals. Potato chips. Qatari fries. Summary You can reduce your risk of kidney stones by making changes to your diet. The most important thing you can do is drink enough fluid. You should drink enough fluid to keep your urine clear or pale yellow. Ask your health care provider or dietitian how much protein from animal sources you should eat each day, and also how much salt and calcium you should have each day. This information is not intended to replace advice given to you by your health care provider. Make sure you discuss any questions you have with your health care provider. Document Released: 11/24/2011 Document Revised: 11/19/2019 Document Reviewed: 07/10/2017 [employer] Patient Education 2020 [employer]. 11/13/2022 09:24:55 [facility] - Cystoscopy with Stent Removal Discharge Instructions (CUSTOM) Cystoscopy with Stent Removal Voiding after the procedure: there may be some pain, burning, urgency, frequency and blood tinged urine following the procedure. These symptoms usually resolve within 2-5 days. Drink the amount of fluid it takes to keep the urine pink to yellow or clear in color. Drinking enough water and fluids will help to ease any discomfort after your procedure. If you are having problems that seem out of the ordinary, please call. If unable to contact your physician and you feel it is an emergency, go to the nearest emergency room or call 911 Diet you may resume your normal diet. Activity you may resume your normal activities Call if you have a fever over 100 degrees. Follow Up Care 11/10/2022 09:26:19 With:Arelis Yip Address: [address], [place] [address] [phone] Business (1) [facility] [place], [address] [place] [address]- [phone] Business (1) When: Unknown Comments:Office to schedule follow up in 6-8 wks with renal US, KUB and 24 hr urine stone workup, labs [facility] Clinical Note 11-01-2022 Note Date & Type Note Facility 11-01-2022 Note EXAMINATION: XR CHES T 2 V HISTORY: Pre-surgery evaluation COMPARISON: XR chest 07/10/2013 FINDINGS: LUNGS: No significant pulmonary parenchymal abnormalities. VASCULATURE: No increased pulmonary vasculature. PLEURA: No pneumothorax, effusion, or pleural thickening. CARDIAC: No cardiomegaly or cardiac silhouette abnormality. MEDIASTINUM: No visible mass or adenopathy. BONES: No fracture or visible bone lesion. OTHER: Negative. IMPRESSION: 1. No acute cardiopulmonary process. Electronically authenticated by: DARIEL CHRISTINE Date: 2022-11-01 09:20 [facility] Discharge instructions 10-27-2022 Note Date & Type Note Facility 10-27-2022 Hospital Discharg e instructions Patient Education 10/27/2022 10:43:32 Dietary Guidelines to Help Prevent Kidney Stones Dietary Guidelines to Help Prevent Kidney Stones Kidney stones are deposits of minerals and salts that form inside your kidneys. Your risk of developing kidney stones may be greater depending on your diet, your lifestyle, the medicines you take, and whether you have certain medical conditions. Most people can reduce their chances of developing kidney stones by following the instructions below. Depending on your overall health and the type of kidney stones you tend to develop, your dietitian may give you more specific instructions. What are tips for following this plan? Reading food labels Choose foods with no salt added or low-salt labels. Limit your sodium intake to less than 1500 mg per day. Choose foods with calcium for each meal and snack. Try to eat about 300 mg of calcium at each meal. Foods that contain 200 500 mg of calcium per serving include: ?8 oz (237 ml) of milk, fortified nondairy milk, and fortified fruit juice. ?8 oz (237 ml) of kefir, yogurt, and soy yogurt. ?4 oz (118 ml) of tofu. ?1 oz of cheese. ?1 cup (300 g) of dried figs. ?1 cup (91 g) of cooked broccoli. ?1 3 oz can of sardines or mackerel. Most people need 1000 to 1500 mg of calcium each day. Talk to your dietitian about how much calcium is recommended for you. Shopping Buy plenty of fresh fruits and vegetables. Most people do not need to avoid fruits and vegetables, even if they contain nutrients that may contribute to kidney stones. When shopping for convenience foods, choose: ?Whole pieces of fruit. ?Premade salads with dressing on the side. ?Low-fat fruit and yogurt smoothies. Avoid buying frozen meals or prepared deli foods. Look for foods with live cultures, such as yogurt and kefir. Cooking Do not add salt to food when cooking. Place a salt shaker on the table and allow each person to add his or her own salt to taste. Use vegetable protein, such as beans, textured vegetable protein (TVP), or tofu instead of meat in pasta, casseroles, and soups. Meal planning Eat less salt, if told by your dietitian. To do this: ?Avoid eating processed or premade food. ?Avoid eating fast food. Eat less animal protein, including cheese, meat, poultry, or fish, if told by your dietitian. To do this: ?Limit the number of times you have meat, poultry, fish, or cheese each week. Eat a diet free of meat at least 2 days a week. ?Eat only one serving each day of meat, poultry, fish, or seafood. ?When you prepare animal protein, cut pieces into small portion sizes. For most meat and fish, one serving is about the size of one deck of cards. Eat at least 5 servings of fresh fruits and vegetables each day. To do this: ?Keep fruits and vegetables on hand for snacks. ?Eat 1 piece of fruit or a handful of berries with breakfast. ?Have a salad and fruit at lunch. ?Have two kinds of vegetables at dinner. Limit foods that are high in a substance called oxalate. These include: ?Spinach. ?Rhubarb. ?Beets. ?Potato chips and maldivian fries. ?Nuts. If you regularly take a diuretic medicine, make sure to eat at least 1 2 fruits or vegetables high in potassium each day. These include: ?Avocado. ?Banana. ?[place], prune, carrot, or tomato juice. ?Baked potato. ?Cabbage. ?Beans and split peas. General instructions Drink enough fluid to keep your urine clear or pale yellow. This is the most important thing you can do. Talk to your health care provider and dietitian about taking daily supplements. Depending on your health and the cause of your kidney stones, you may be advised: ?Not to take supplements with vitamin C. ?To take a calcium supplement. ?To take a daily probiotic supplement. ?To take other supplements such as magnesium, fish oil, or vitamin B6. Take all medicines and supplements as told by your health care provider. Limit alcohol intake to no more than 1 drink a day for non women and 2 drinks a day for men. One drink equals 12 oz of beer, 5 oz of wine, or 1 oz of hard liquor. Lose weight if told by your health care provider. Work with your dietitian to find strategies and an eating plan that works best for you. What foods are not recommended? Limit your intake of the following foods, or as told by your dietitian. Talk to your dietitian about specific foods you should avoid based on the type of kidney stones and your overall health. Grains Breads. Bagels. Rolls. Baked goods. Salted crackers. Cereal. Pasta. Vegetables Spinach. Rhubarb. Beets. Canned vegetables. Pickles. Olives. Meats and other protein foods Nuts. Nut butters. Large portions of meat, poultry, or fish. Salted or cured meats. Deli meats. Hot dogs. Sausages. Dairy Cheese. Beverages Regular soft drinks. Regular vegetable juice. Seasonings and other foods Seasoning blends with salt. Salad dressings. Canned soups. Soy sauce. Ketchup. Barbecue sauce. Canned pasta sauce. Casseroles. Pizza. Lasagna. Frozen meals. Potato chips. Qatari fries. Summary You can reduce your risk of kidney stones by making changes to your diet. The most important thing you can do is drink enough fluid. You should drink enough fluid to keep your urine clear or pale yellow. Ask your health care provider or dietitian how much protein from animal sources you should eat each day, and also how much salt and calcium you should have each day. This information is not intended to replace advice given to you by your health care provider. Make sure you discuss any questions you have with your health care provider. Document Released: 11/24/2011 Document Revised: 11/19/2019 Document Reviewed: 07/10/2017 [employer] Patient Education 2020 [employer]. Follow Up Care 09/07/2022 10:54:19 With:Phi MTZ, Arelis Velazquez, URL, [facility] Address: When: Unknown [facility] Evaluation + Plan note Note Date & Type Note Facility Evaluation + Plan note No data available for this section [facility] Evaluation + Plan note Note Date & Type Note Facility Evaluation + Plan note Future Appointments Appointment Date:01/17/2023 08:45:00 AM Scheduled Provider:Arelis Yip MD Location:[facility] Appointment Type:URO Office Visit [facility] Evaluation + Plan note Note Date & Type Note Facility Evaluation + Plan note Future Appointments Appointment Date:09/19/2023 08:45:00 AM Scheduled Provider:Arelis Yip MD Location:[facility] Appointment Type:URO Office Visit Diagnostic Tests PendingUric Acid 03/14/23PTH Intact 03/14/23 [facility] Progress note Note Date & Type Note Facility Progress note No data available for this section [facility] Reason for Referral Status Reason Specialty Diagnoses / Procedures Referred By Contact Referred To Contact New 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 Procedures CT CHEST WITH CONTRAST [place] CAT SCAN OF CHEST CONTRAST Hernesto Haque II, MD [address] [place] [address] Status Reason Specialty Diagnoses / Procedures Referred By Contact Referred To Contact New 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 female who was seen by [facility]ology today to establish cardiac care. Patient Active Problem List Diagnosis body mass index of 40.0-49.9 No past medical history on file. 1. Coronary artery disease: no 2. Myocardial infarction: no 3. Congestive Heart Failure: no 4. Cardiomyopathy: no 5. Arrhythmia: no 6. Valvular heart disease: no 7. Congenital heart disease: no 8. Cerebrovascular Accident: no 9. Transient Ischemic Attack: no 10. Chronic anticoagulation: no 11. Peripheral vascular disease: no 12. Hypertension: yes 13. Hypertensive Heart Disease: no 14. Hyperlipidemia: no 15. Diabetes Mellitus: no 16. Gastroesophageal disease, Peptic ulcer disease, hiatal hernia, esophageal spasm: no 17. Thyroid disease: no 18. Syncope: no 19. Collagen vascular disease: no 20. Gastrointestinal bleed: no 21. COPD, asthma, emphysema, chronic bronchitis: yes 22. Chronic or acute respiratory failure: no 23. Pneumonia: no 24. Acute or chronic kidney disease: no 24. Anemia: no 25. Rheumatic fever: no 26. Bleeding diatheses: no 27. Cancer: no 28. Chemotherapy or Radiation: no 29. Aortic aneurysm: no 30. Carotid arterial disease: no 31. Liver disease: no 32. Gallbladder disease: no 33. Seizure: no 34. Migraine headache: no 35. Arthritis: no 36. Tuberculosis: no 37. Vasculitis: no 38. MANUFACTURING ENGINEERING DIRECTOR/OB: no 39. Obesity: yes 40. Sleep apnea: no 41. HIV: no 42. Heart murmur: no 43. Other: See problem list No past surgical history on file. (Not in a hospital admission) Scheduled medications Continuous Infusions PRN Medications No Known Allergies Social History Social History Marital status: Single Spouse name: N/A Number of children: N/A Years of education: N/A Social History Main Topics Smoking status: Passive Smoke Exposure - Never Smoker Smokeless tobacco: Never Used Alcohol use Not on file Drug use: Unknown Sexual activity: Not on file Other Topics Concern Not on file Social History Narrative No narrative on file Review of System 1. Chest discomfort: no 2. Shortness of breath: yes 3. Palpitations: no 4. Dizziness: no 5. Lightheadedness: no 6. Syncope: no 7. Nausea: no 8. Vomiting: no 9. Diaphoresis: yes 10. Jaw discomfort: no 11. Neck discomfort: no 12. Back discomfort: no 13. Arm discomfort or numbness: no 14. Orthopnea: no 15. PND: no 16. Increased abdominal girth: no 17. Weight gain/loss: no 18. Malaise: no 19. Fatigue: no 20. Exercise intolerance: no 21. Hematemesis, hemoptysis, hematuria, melena, or hematochezia: no 22. Lower extremity swelling: no 23. Fevers/chills:no 24. Cough:yes in this encounter* BrooksZoe franklin - 07/25/2018 11:36 AM EST Pt in need of creatinine labs due to CT chest with contrast order. in this encounter* Ilia Monson PA - 09/05/2018 9:00 AM EST Formatting of this note may be different from the original. 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 She did see cardio for eval and mgt of aortic abnormalities. Thyroid Abnormality Last labs showed normal TSH with slightly lower T4. Hyperlipidemia Keyona Atkins presents today for evaluation & treatment of hyperlipidemia. Status uncontrolled. Medications include none. Diet: fair, improved. Exercise none. Denies chest pain, SOB, edema, palpitations, tinnitus, vision changes, headache, dizziness, syncope, or muscle aches/pain. Lab Results Component Value Date CHOLESTEROL 234 (H) 06/22/2018 TRIG 203 (H) 06/22/2018 HDL 39 (L) 06/22/2018 LDLCALC 154 (H) 06/22/2018 Vitamin D Def Last labs showed vit D def, she started daily vit D, and needs repeat labs done. Review of Systems Constitutional: Negative for chills, diaphoresis, fatigue and fever. HENT: Negative. Eyes: Negative. Respiratory: Negative for cough, shortness of breath and wheezing. Cardiovascular: Negative for chest pain, palpitations and leg swelling. Gastrointestinal: Negative for abdominal pain and blood in stool. Genitourinary: Negative for dysuria. Musculoskeletal: Negative for back pain. Skin: Negative for rash. Neurological: Negative for dizziness and headaches. Hematological: Negative for adenopathy. Does not bruise/bleed easily. Psychiatric/Behavioral: Negative for self-injury, sleep disturbance and suicidal ideas. The patientis not nervous/anxious. Vitals: Blood pressure 122/78, pulse 96, temperature 98 F (36.7 C), resp. rate 16, height 1.486 m (4' 10.5 ), weight 91.2 kg (201 lb), SpO2 98 %. Physical Exam Constitutional: She is oriented to person, place, and time. No distress. Eyes: Pupils are equal, round, and reactive to light. Neck: Normal range of motion. No thyromegaly present. Cardiovascular: Normal rate, regular rhythm and normal heart sounds. No murmur heard. Pulmonary/Chest: Effort normal and breath sounds normal. No respiratory distress. She has no wheezes. Abdominal: Soft. Bowel sounds are normal. Musculoskeletal: Normal range of motion. She exhibits no edema. Neurological: She is alert and oriented to person, place, and time. She has normal strength. Skin: Skin is warm and dry. No bruising, no lesion and no rash noted. She is not diaphoretic. Psychiatric: She has a normal mood and affect. Her behavior is normal. Judgment and thought contentnormal. Nursing note and vitals reviewed. Neurologic Exam Mental Status Oriented to person, place, and time. Cranial Nerves CN III, IV, Pupils are equal, round, and reactive to light. Motor Exam Strength Strength 5/5 throughout. Assessment and Plan 1. Umanzor's syndrome 2. Abnormal thyroid blood test 3. Mixed hyperlipidemia 4. Vitamin D deficiency Medical Decision Making We will contact endo for apt, get labs done fasting, continue current meds, and follow up in 6 months. 15 minutes and 50% of the visit spent educating and counseling the patient on the condition(s). in this encounter* Hernesto Haque II, MD - 10/04/2018 8:20 AM EST Chief Complaint 1 month follow-up Umanzor Syndrome, FE HPI Keyona Atkins is a 18 y.o. female who was seen by [facility] today for a 1 month follow-up appointment. She currently denies chest pain, palpitations, shortness of breath out of proportion to her level of exertion, or paroxysmal nocturnal dyspnea. She has chronic 2 pillow orthopnea. She denies any increased abdominal girth, generalized fatigue, or decrease in her exercise tolerance. She does not engage in regular daily exercise. She has been tolerating the addition of metoprolol succinate ER to her regimen well. She believes that her heart has been racing less frequently on this regimen. She has not had her sleep study performed as yet. Her mother reports that her speck dyer wants toput her on hormone replacement therapy. Patient Active Problem List Diagnosis Morbid obesity Umanzor's syndrome Aortic arch anomaly Inappropriate sinus node tachycardia Mixed hyperlipidemia Chronic pulmonary hypertension Obstructive sleep apnea Review of System 1. Chest discomfort: no 2. Shortness of breath: no 3. Palpitations: no 4. Dizziness: no 5. Lightheadedness: no 6. Syncope: no 7. Nausea: no 8. Vomiting: no 9. Diaphoresis: no 10. Jaw discomfort: no 11. Neck discomfort: no 12. Back discomfort: no 13. Arm discomfort or numbness: no 14. Orthopnea: no 15. PND: no 16. Increased abdominal girth: no 17. Weight gain/loss: no 18. Malaise: no 19. Fatigue: no 20. Exercise intolerance: no 21. Hematemesis, hemoptysis, hematuria, melena, or hematochezia: no 22. Lower extremity swelling no 23. Cough no 24. Fevers/chills no Physical Exam Blood pressure 118/78, pulse 83, resp. rate 16, height 1.486 m (4' 10.5 ), weight 92.1 kg (203 lb),SpO2 97 %.General appearance - A short, morbidly obese, and pleasant young female who was alert, oriented, and in no distress. She appeared to be anxious when seen. Skin - normal coloration and turgor, no laxity Nodes - anterior cervical, posterior cervical, epitrochlear, and inguinal nonpalpable. HEENT PERRLA, EOMI, no xanthelasma or icterus Neck - webbed neck, short, thick, supple, FROM, No JVD,Carotids upstroke normal bilaterally withoutbruits. No thyromegaly and no lymphadenopathy. Chest - symmetrical and non-tender. Barrel chested. Lungs - clear to auscultation, full respiratory excursions, no wheezes, rales nor rhonchi Heart - PMI MCL 5th ICS, increased heart rate and regular rhythm, S1 and S2 normal, no murmurs, rubs, nor gallops noted. Abdomen - obese, soft, nontender, nondistended. No HSM, masses, nor bruits appreciated. Extremities -obese, no cyanosis, clubbing, And mild right lower extremity lymphedema. Upper and lower extremity pulses 2+ bilaterally. No femoral bruits. Musculoskeletal - no joint deformity, tendon xanthoma Psych- appropriate mood and affect Neurological - no focal neurological deficits appreciated. Speech fluent and appropriate, moves all4 extremities. Lab Results Component Value Date CHOLESTEROL 234 (H) 06/22/2018 TRIG 203 (H) 06/22/2018 HDL 39 (L) 06/22/2018 LDLCALC 154 (H) 06/22/2018 12 lead ECG: none. Patient Active Problem List Diagnosis Date Noted Umanzor's syndrome 08/30/2018 Aortic arch anomaly 08/30/2018 Inappropriate sinus node tachycardia 08/30/2018 Mixed hyperlipidemia 08/30/2018 Chronic pulmonary hypertension 08/30/2018 Obstructive sleep apnea 08/30/2018 Morbid obesity 06/06/2018 Diagnoses: 1. Umanzor's syndrome. 2. Aortic arch anomalies. There is bovine configuration to the aortic arch with possible elongationof the aortic arch and mild kinking of the anterior wall noted at the junction between the arch in the descending thoracic aorta. 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 3. Mild pulmonary hypertension by TTE on 08/08/2018. The RV systolic pressure was 36.55 mmHg. The patient had trace tricuspid regurgitation, trace to mild pulmonic regurgitation, borderline concentric LVH, normal left ventricular systolic function with an EF of 60-65%, a normal aortic valve, a normal mitral valve, and a normal pericardium. The aortic root, and ascending aorta both appeared to be normal. 4. Hypertension, 5. Inappropriate sinus tachycardia. 6. Mixed hyperlipidemia. 7. Moderate obesity. 8. Lymphedema of both lower extremities. 9. Obstructive sleep apnea untreated by a CPAP mask. Assessment & Plan This is a 18-year-old female with an extensive history as noted above who has aortic arch anomaliesby CT of the chest consistent with her history of Umanzor's syndrome. She is able to function with these and there is no indication for her to have CT surgery to address these anomalies. Her echocardiogram was significant for the finding of mild pulmonary hypertension which is almost certainly due to her obstructive sleep apnea. This has been untreated with a CPAP mask for the past couple of yearsbut she used to use a CPAP mask prior to that time. She needs to have a sleep study performed to reevaluate her sleep apnea so that she can receive the appropriate therapy. I have ordered this for her. She has a history of inappropriate sinus tachycardia which has improved with the addition of metoprolol succinate ER to her regimen at 12.5 mg by mouth every p.m. She has dyslipidemia which she is attempting to control with dietary therapy and with exercise. If this fails to produce the desired effect she may benefit from therapy with a statin. Please note that the addition of HRT to her regimen may have long-term potentially adverse cardiovascular effects, however he patient's speck dyer deems this to be necessary at this time. She will need to be watched closely. She is to return fora follow-up visit in 5 months. * Kelly Brooksh - 10/04/2018 8:20 AM EST Chief Complaint 1 month follow-up Umanzor Syndrome, FE HPI Keyona Atkins is a 18 y.o. female who was seen by [facility] today for a 1 month follow-up appointment. Patient Active Problem List Diagnosis Morbid obesity Umanzor's syndrome Aortic arch anomaly Inappropriate sinus node tachycardia Mixed hyperlipidemia Chronic pulmonary hypertension Obstructive sleep apnea Review of System 1. Chest discomfort: no 2. Shortness of breath: no 3. Palpitations: no 4. Dizziness: no 5. Lightheadedness: no 6. Syncope: no 7. Nausea: no 8. Vomiting: no 9. Diaphoresis: no 10. Jaw discomfort: no 11. Neck discomfort: no 12. Back discomfort: no 13. Arm discomfort or numbness: no 14. Orthopnea: no 15. PND: no 16. Increased abdominal girth: no 17. Weight gain/loss: no 18. Malaise: no 19. Fatigue: no 20. Exercise intolerance: no 21. Hematemesis, hemoptysis, hematuria, melena, or hematochezia: no 22. Lower extremity swelling no 23. Cough no 24. Fevers/chills no documented in this encounter* Lashae Hastings, LAMINA SEARCHER - 09/14/2018 6:34 PM EST ENT Clinic Follow up Note History of Present Illness Keyona Atkins is a 18 y.o. y/o female presents for follow up regarding perforation of the left tympanicmembrane and otorrhea. She is a known patient in our clinic who has Umanzor syndrome and admits to a long-standing history of recurrent ear infections and allergies. Patient has had a total of 7 sets of ear tubes. She had her last set of ear tubes at age 8. She has history of perforation to the left tympanic membrane which failed tympanoplasty approximately 2 years ago. Patient currently takes Claritin and Singulair forher allergies. At her last appointment there was still a moderate sized perforation to the left tympanic membrane and otorrhea. Otorrhea was treated with Ciprodex eardrops. Patient presents today forevaluation of symptom resolution. Patient denies any current pain, pressure or drainage from the ears. She reports good control of her allergies and asthma with the Claritin and Singulair daily. She denies any subjective change in her hearing. No Known Allergies Past Medical History: Diagnosis Date Allergic rhinitis Silvano's disease History of recurrent ear infection Umanzor syndrome Social History Socioeconomic History Marital status: Single Spouse name: Not on file Number of children: Not on file Years of education: Not on file Highest education level: Not on file Social Needs Financial resource strain: Not on file Food insecurity - worry: Not on file Food insecurity - inability: Not on file Transportation needs - medical: Not on file Transportation needs - non-medical: Not on file Occupational History Not on file Tobacco Use Smoking status: Never Smoker Smokeless tobacco: Never Used Substance and Sexual Activity Alcohol use: Not on file Drug use: Not on file Sexual activity: Not on file Other Topics Concern Not on file Social History Narrative Not on file Family History Problem Relation Age of Onset Cancer Paternal Aunt Cancer Maternal Grandmother Past Surgical History: Procedure Laterality Date ADENOIDECTOMY TONSILLECTOMY TYMPANOSTOMY TUBE PLACEMENT The following systems were reviewed and revealed the following in addition to any already discussedin the HPI: Review of Systems Constitution: Negative for chills, fever and malaise/fatigue. HENT: Positive for hearing loss ( mild, bilateral, reports her hearing is stable at this time). Negative for congestion, ear discharge, ear pain, hoarse voice, nosebleeds, sore throat and tinnitus. Admits to occasional sinus pressure, nasal congestion and headaches, reports significant improvement with the Claritin and Singulair Long-standing history of recurrent ear infections. Had a total of 7 sets of ear tubes. Last set of ear tubes at age 8 and known perforation to the left tympanic membrane which failed tympanoplasty 2 years ago. Eyes: Negative for discharge, pain, photophobia and redness. Cardiovascular: Negative for chest pain, leg swelling, near-syncope and syncope. Respiratory: Negative for cough, shortness of breath, sleep disturbances due to breathing and snoring. Endocrine: Negative for cold intolerance and heat intolerance. Hematologic/Lymphatic: Negative for adenopathy and bleeding problem. Does not bruise/bleed easily. Skin: Negative for color change, dry skin, itching and rash. Musculoskeletal: Negative for falls, joint swelling, muscle cramps and muscle weakness. Gastrointestinal: Negative for nausea and vomiting. Neurological: Negative for dizziness, headaches, light-headedness, loss of balance, numbness, seizures, tremors, vertigo and weakness. Psychiatric/Behavioral: Negative for altered mental status and substance abuse. The patient is not nervous/anxious. Allergic/Immunologic: Positive for environmental allergies ( Currently managed with Claritin and Singulair at bedtime ) and persistent infections ( History of recurrent ear infections bilaterally, last set of tympanostomy tubes at age 8 ). Physical Exam Vitals: 09/12/18 1112 BP: (P) 119/72 Pulse: (P) 88 SpO2: (P) 98% Weight: (P) 92.2 kg (203 lb 3.2 oz) Physical Exam Constitutional: She is oriented to person, place, and time and well-developed, well-nourished, and in no distress. Vital signs are normal. She does not have a sickly appearance. No distress. HENT: Head: Normocephalic and atraumatic. Right Ear: Tympanic membrane, external ear and ear canal normal. No drainage, swelling or tenderness. No foreign bodies ( ). No mastoid tenderness. Tympanic membrane is not perforated. No middle ear effusion. No decreased hearing is noted. Left Ear: Tympanic membrane and external ear normal. No drainage, swelling or tenderness. A foreignbody (Excessive cerumen was found partially blocking ear canal, removed with loop and forceps) is present. No mastoid tenderness. Tympanic membrane is not perforated. No middle ear effusion. No decreased hearing is noted. Ears: Nose: Nose normal. No mucosal edema or rhinorrhea. Right sinus exhibits no maxillary sinus tenderness and no frontal sinus tenderness. Left sinus exhibits no maxillary sinus tenderness and no frontalsinus tenderness. Mouth/Throat: Uvula is midline, oropharynx is clear and moist and mucous membranes are normal. Eyes: Right eye exhibits no discharge. Left eye exhibits no discharge. Lymphadenopathy: Head (right side): No submental and no submandibular adenopathy present. Head (left side): No submental and no submandibular adenopathy present. She has no cervical adenopathy. Neurological: She is alert and oriented to person, place, and time. Skin: Skin is warm and dry. She is not diaphoretic. Psychiatric: Memory, affect and judgment normal. With the patient in a sitting position utilizing the microscope excessive cerumen was found partially blocking the left ear canal causing symptoms noted in physical exam. Excessive cerumen was removed from the left ear canals using loop & foreceps. The canals and tympanic membranes were then visualized and found to be without acute pathology. The prior perforation to the left tympanic membrane appears to be healing without any residual perforation noted. Assessment and Plan: Keyona Atkins is a 18 y.o. y/o female who presents with perforation of the left tympanic membrane and otorrhea. She is a known patient in our clinic who has Umanzor syndrome and admits to a long-standing history of recurrent ear infections and allergies. Patient has had a total of 7 sets of ear tubes. She had her last set of ear tubes at age 8. She has history of perforation to the left tympanic membrane which failed tympanoplasty approximately 2 years ago in [place]. Patient currently takes Claritin and Singulair for her allergies. At her last appointment there was still a moderate sized perforation to the left tympanic membrane and otorrhea. Otorrhea was treated with Ciprodex eardrops. Patient presentstoday for evaluation of symptom resolution. Patient denies any current pain, pressure or drainage from the ears. She reports good control of her allergies and asthma with the Claritin and Singulair daily. She denies any subjective change in her hearing. Upon physical exam excessive cerumen was found partially blocking left external ear canal. Excessive cerumen was removed without difficulty using loop and forceps. Prior perforation to the left tympanic membrane was found to be healing without any residual perforation noted. There are no signs of acute pathology. Patient was given mupirocin for nasal dryness, irritation and a small abrasion inside the left nares. Follow-up in [address] Thomas to establish care due to the patient's significant history of ear infections. Formal hearing evaluation at that time to establish a baseline in our office since thepatient has known history of mild bilateral sensorineural hearing loss. 1. Abrasion of nose, initial encounter - mupirocin (BACTROBAN) 2 % ointment; Apply 1 application topically daily Inside the left side of the nose three times a day for 10 days . Dispense: 15 g; Refill: 0 Diagnoses and all orders for this visit: Excessive cerumen in left ear canal Abrasion of nose, initial encounter - mupirocin (BACTROBAN) 2 % ointment; Apply 1 application topically daily Inside the left side of the nose three times a day for 10 days . 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 Tachycardia, unspecified Morbid obesity Mixed hyperlipidemia Obstructive sleep apnea Obstructive sleep apnea (adult) (pediatric) Lymphedema of right lower ex tremity Diagnosis Pre-operative cardiovascular examination - Primary Diagnosis Vitamin D deficiency - Prima ry Unspecified vitamin D deficiency Mixed hyperlipidemia Abnormal thyroid blood test Nonspecific abnormal results of thyroid function study Diagnosis Umanzor's syndrome Gonadal dysgenesis Abnormality of aortic arch b ranch Diagnosis Umanzor's syndrome- Primary Gonadal dysgenesis Abnormal thyroid blood test Nonspecific abnormal results of thyroid function study Mixed hyperlipidemia Vitamin D deficiency Unspecified vitamin D deficiency Diagnosis Umanzor syndrome- 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 Continue medications. 2. Get labs done in about 1 month fasting. 3. Follow up with specialists. 4. Return to office in 6 months. in this encounter Summary Purpose Family History No Family History Records FoundNo Family History Records FoundNo Family History Records FoundNo Family History Records FoundNo Family History Records FoundNo Family History Records FoundNo Family History Records FoundNo Family History Records FoundNo Family History Records Found Advance Directives No Advanced Directives Records FoundNo Advanced Directives Records FoundNo Advanced Directives Records FoundNo Advanced Directives Records FoundNo Advanced Directives Records FoundNo Advanced Directives Records FoundNo Advanced Directives Records FoundNo Advanced Directives Records FoundNo Advanced Directives Records Found Additional Source Comments Reason for Visit (unrecogniz ed section and content) Reason Comments New Patient Referral from Anam Monson for HTN and arotic arch anomaly Status Reason Specialty Diagnoses / Procedures Referred By Contact Referred To Contact Closed Cardiovascular Medicine Diagnoses Essential hypertension Aortic arch anomaly Ilia Monson PA [address] [place], [place] [id number] García Rojas DO [address] [place] [address] Reason Comments Results Reason Comments Other Status Reason Specialty Diagnoses / Procedures Referre d By Contact Referred To Contact 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 Procedures ECHOCARDIOGRAM Hernesto Haque II, MD [address] [place] [address] Status Reason Specialty Diagnoses / Procedures Referre d By Contact Referred To Contact 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 Procedures CT CHEST WITH CONTRAST [place] CAT SCAN OF CHEST CONTRAST Hernesto Haque II, MD [address] [place] [address] Reason Comments Follow-up Reason Comments Referral Reason Comments Follow-up 1 month follow-up Tu rner Syndrome, FE Reason Comments Medication Refill INFORMATION SOURCE (unrecogn ized section and content) DATE CREATED AUTHOR 09/14/2018 [facility] DATE CREATED AUTHOR AUTHOR'S ORGANIZ ATION 04/28/2019 [facility] DATE CREATED AUTHOR AUTHOR'S ORGANIZ ATION 05/25/2019 [facility] DATE CREATED AUTHOR AUTHOR'S ORGANIZ ATION 05/25/2019 [facility] DATE CREATED AUTHOR AUTHOR'S ORGANIZ ATION 08/15/2019 [facility] DATE CREATED AUTHOR AUTHOR'S ORGANIZ ATION 04/08/2020 [facility] DATE CREATED AUTHOR AUTHOR'S ORGANIZ ATION 11/18/2022 [facility] DATE CREATED AUTHOR AUTHOR'S ORGANIZ ATION 07/05/[address] [facility] DATE CREATED AUTHOR AUTHOR'S ORGANIZ ATION 08/17/2023 [facility] Patient Care team informatio n (unrecognized section and content) Personnel Name: Ilia Cobb DO Address: Address: [address] [place] [address] Personnel Name: Ilia Cobb DO Address: Address: [address] [place] [address] Personnel Name: Ilia Cobb DO Address: Address: [address] [place] [address] FOR RECORDS PERTAINING TO PATIENTS WHO ARE OR HAVE BEEN ENROLLED IN A CHEMICAL DEPENDENCY/SUBSTANCEABUSE PROGRAM, SOME INFORMATION MAY BE OMITTED. This clinical summary was aggregated from multiple sources. Caution should be exercised in using it in the provision of clinical care. This summary normalizes information from multiple sources, and as a consequence, information in this document may materially change the coding, format and clinical context of patient data. In addition, data may be omitted in some cases. CLINICAL DECISIONS SHOULD BE BASED ON THE PRIMARY CLINICAL RECORDS. [facility] provides no warranty or guarantee of the accuracy or completeness of information in this document.
--- NOTE | 2023-08-22 10:08 | US_ITS ---
The [address] [address] Patient Name: RICARDO ATKINS MRN: [id number] date: 2000 Sex: F Assigned Patient Location: LAB Current Patient Location: LAB Accession/Order Number: [id number] Exam Date: 08/22/2023 10:15 Report Date: 08/22/2023 10:57 At the request of: EMILIA FISCHER Procedure: US renal BI EXAMINATION: US renal BI HISTORY: renal stone COMPARISON: XR abdomen 08/22/2023, ultrasound kidneys 01/23/2023, CT abdomen pelvis without and with contrast 08/26/2022, CT chest 08/08/2018 TECHNIQUE: Ultrasound examination was performed of the kidneys and urinary bladder. FINDINGS: RIGHT KIDNEY: No evidence of pelvocaliectasis, mass, or calculi. Normal renal cortical parenchymal echogenicity. Color Doppler demonstrates blood flow within the kidney. Kidney: 11.1 x 6.0 x 5.1 cm LEFT KIDNEY: 1.7 cm nodule versus complex cyst superior pole cortex; similar to prior study. Stable 6 x 5 x 2 mm nonobstructing stone within inferior pole. Normal renal cortical parenchymal echogenicity. Color Doppler demonstrates blood flow within the kidney. Kidney: 12.4 x 5.9 x 5.7 cm BLADDER: No visible wall thickening, mass, or calculi. OTHER: 1.2 cm stone within gallbladder; no appreciable gallbladder wall thickening. US/US renal BI IMPRESSION: 1. Nonobstructing left nephrolithiasis; not appreciably changed. 2. Stable, chronic nodule versus complex cyst within superior pole of left kidney favoring benign etiology. 3. Cholelithiasis. Electronically authenticated by: DARIEL CHRISTINE Date: 08/22/2023 10:57
== END 2023-08-22 10:04 | disposition home or self-care (01) ==
LOC: LAB 10:03
PROVIDERS: PCP Nurse Practitioner Primary Care; Visit Provider Urology
DX: N20.0 Calculus of kidney (principal); R31.0 Gross hematuria; N28.1 Cyst of kidney, acquired; K80.20 Calculus of gallbladder without cholecystitis without obstruction
CPT/HCPCS: 74018; 76775

== ENCOUNTER 2024-03-13 03:25 | Emergency (ER) | payer OTHER, SELFPAY ==
[2024-03-13 03:30] VITALS: BP 160/94; PULSE 125; TEMP 37.1; O2SAT 98
--- OUTSIDE RECORDS SUMMARY | 2024-03-13 03:34 | XMS_ITS | CCD ---
Author Organization [facility] Care Team Providers Care Data Center Engineer Name Role Phone Ilia Monson Unavailable ILIA MONSON Attending Unavailable SELF, SELF Referring Unavailable CAROL, ILIA Lee Attending Unavailable SELF, SELF Referring Unavailable Ilia Monson Primary Care Provider [phone] THAO TORRES Attending U navailable HASTINGS, LASHAE TREVINO Attending Unavailab le CAROL, ILIA BYNUM Referring Unavailab le CAROL, ILIA BYNUM Primary Care Unavailab le HASTINGS, LASHAE TREVINO Attending Unavailab le CAROL, ILIA BYNUM Primary Care Unavailab le HASTINGS, LASHAE TREVINO Attending Unavailab le CAROL, ILIA BYNUM Primary Care Unavailab alysa Monson, Ilia Primary Care Provider Ilia Cobb Primary Care Physician REZA, DR YOO Primary Care Unavailable LUE .ARELIS Attending Unavailable LUE ., ARELIS Preston Admitting Unavailable EMMETT, DR DARIEL Hernandez Consulting Unavailable PHI .ARELIS Consulting Unavailable REZA, DR YOO Primary Care Unavailable LUChris .ARELIS Admitting Unavailable LUChris .ARELIS Consulting Unavailable PHI .ARELIS Attending Unavailable CHRISTINE MANE Consulting Unavailable REZA, DR YOO Admitting Unavailable REZA, DR YOO Primary Care Unavailable REZA, DR YOO Consulting Unavailable REZA, DR YOO Attending Unavailable KAYCE SANDS Consulting Unavailable BERNARD Avery, DR HILL Admitting Unavailable REQUEST, DR GUZMAN LISTED Primary Care Unavaila ble BERNARD Avery, DR HILL Consulting Unavailable BERNARD ., DR HILL Attending Unavailable ILIA COBB Primary Care Physician [phone] MIKAELA MARCH Primary Care Physician BARAK MABRY Admitting Unavailable BARAK MABRY Attending Unavailable BARAK MABRY Admitting Unavailable NONE, XXXX Primary Care Physician Unavailab Arelis Gonzalez Attending Unavailable JOAQUIM MIKAELA Primary Care Unavailable Arelis Yip Attending Unavailable Arelis Yip Referring Unavailable Arelis Yip Attending Unavailable MARIA DE JESUS ANTONIO Attending Unavailable [facility], MIKAELA Primary Care Unavailable Arelis Yip Attending Unavailable SHAMIL, MIKAELA Primary Care Unavailable MARIA DE JESUS ANTONIO Attending Unavailable SHAMMO, MIKAELA Primary Care Unavailable MARIA DE JESUS ANTONIO Admitting Unavailable MARIA DE JESUS ANTONIO Attending Unavailable [facility], MIKAELA Primary Care Unavailable Medications Current Medications Medication Drug Class(es) [...] for Wheezing. 1 Inhaler 2 06/06/2018 Active busPIRone hydrochloride 10 mg oral tablet (4 sources) Start: 10-02-2023 busPIRone 10 mg Tab Refills(s) 0 Start Date: 10/02/23 Status: Ordered cholecalciferol 2000 unt oral tablet (12 sources) Vitamin D Start: 06-28-2018 take 1 tablet by mouth once daily Cholecalciferol (VITAMIN D3) 2000 units Tab Indications: Vitamin D deficiency Take 1 tablet by mouth daily. 30 tablet 11 06/28/2018 Active enalapril maleate 5 mg oral tablet (20 sources) Angiotensin Converting Enzyme Inhibitor Start: 10-27-2022 [...] / neomycin 3.5 mg/ml / polymyxin b [id number] unt/ml otic suspension (8 sources) Aminoglycoside Antibacterial, Polymyxin-class Antibacterial, Corticosteroid Start: 06-06-2018 cocauckt-vqapqlpdt-mdhmcksho isone (CORTISPORIN) otic suspension Administer 4 drops into ears . 0 06/06/2018 Active Start: 06-06-2018 neomycin-polym yxin-hydrocortisone [id number] Suspension Indications: History of recurrent ear infection Place 4 drops in left ear 3 times daily. 1 Bottle 0 06/06/2018 Active levothyroxine sodium 0.075 mg oral tablet (3 sources) l-Thyroxine take 1 tablet by mouth once daily levothyroxine 75 MCG Tab tablet Take 75 mcg by mouth daily. 0 Active loratadine 10 mg oral tablet (9 sources) Start: 10-27-2022 take 1 mg by [...] 06/20/2019 Active melatonin 3 mg oral tablet (20 sources) Start: 10-27-2022 take 1 tablet by [...] succinate 25 mg extended release oral tablet (15 sources) beta-Adrenergic Sesar Start: 10-27-2022 take 1 [...] 08/30/2018 Active montelukast 10 mg oral tablet (20 sources) Leukotriene Receptor Antagonist Start: 10-27-2022 take [...] 0 Active sertraline 50 mg oral tablet (20 sources) Serotonin Reuptake Inhibitor Start: 10-27-2022 take [...] mouth . 0 06/06/2018 Active Vitamin D3 (8 sources) Start: 10-27-2022 Vitamin D3 Sta rt Date: 10/27/22 Status: Ordered Zofran ODT 4 mg Tab-Dis (3 sources) Start: 11-13-2022 take 1 tablet by mouth every eight hours as needed for nausea Zofran ODT 4 mg Tab-Dis 4 mg = 1 tab(s), Oral, q8hr, PRN Nausea/Vomiting, # 12 tab(s), Refills(s) 0, Pharmacy: [facility] #[id number], 148, cm, 10/27/22 9:59:00 EDT, Height/Length Dosing, 94.6, kg, 10/27/22 9:59:00 EDT, Weight Dosing Start Date: 11/13/22 Status: Ordered Completed/Discontinued Medications Medication Drug Class(es) Dates Sig (Normalized) Sig (Original) Iohexol (1 source) Radiographic Contrast Agent Start: 08-08-2018 End: 08-08-2018 iohexol (OMNIPAQUE) 350 MG/ML injection 75 mL mometasone furoate 1 mg/ml topical cream (4 sources) Corticosteroid Start: 10-02-2023 mometasone Top 0.1% Crm 15 gram Refill(s) 0 Start Date: 10/02/23 Status: Ordered Sodium Chloride 0.9 % Ij Soln (1 source) Start: 08-08-2018 End: 08-08-2018 sodium chloride (PF) 0.9% injection 70 mL Problems Active Problems Problem Classification Problem Date Documented Da te Episodic/Chronic Abdominal pain (4 sources) Unspecified abdominal pain; Translations: [UNSPECIFIED ABDOMINAL PAIN] Onset: 11-13-2022 Episodic Asthma (8 sources) Asthma 10-27-2022 Chronic Calculus of urinary tract (20 sources) Kidney stone; Translations: [Calculus of kidney] [...] hyperlipidemia] Onset: 08-30-2018 08-30-2018 Chronic Essential hypertension (10 sources) Benign essential hypertension; Translations: [Hypertensive disorder] Onset: 11-16-2022 10-27-2022 Chronic Genitourinary symptoms and ill-defined conditions (3 sources) Urge incontinence; Translations: [Urge incontinence of urine] Onset: 01-16-2024 Chronic Genitourinary symptoms and ill-defined conditions (16 sources) Blood in urine; Translations: [Gross hematuria] Onset: 08-26-2022 Episodic Headache; including migraine (8 sources) Headache 10-27-2022 Episodic Nutritional deficiencies (2 sources) Vitamin D deficiency; Translations: [Vitamin D deficiency] Chronic Other aftercare (1 source) Other alf (current) drug therapy; Translations: [OTH TIRE FABRICATOR CURRENT DRUG THERAPY] Onset: 11-16-2022 Episodic Other and ill-defined heart disease (8 sources) Heart disease 10-27-2022 Chronic Other congenital anomalies (10 sources) Umanzor syndrome; 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] Onset: 08-30-2018 08-30-2018 Chronic Other congenital anomalies (1 source) Umanzor's syndrome, unspecified; Translations: [TURNERS SYNDROME UNSPECIFIED] Onset: 11-16-2022 Chronic Other diseases of bladder and urethra (1 source) Unspecified urethral stricture, female; Translations: [UNSP URETHRAL STRICTURE FEMALE] Onset: 11-16-2022 Episodic Other diseases of kidney and ureters (4 sources) Acquired renal cyst without neoplastic change; Translations: [Cyst of kidney, acquired] Onset: 10-27-2022 Episodic Other diseases of kidney and ureters (8 sources) Cyst of kidney 10-27-2022 Episodic Other diseases of veins and lymphatics (1 source) Lymphedema; Translations: [Lymphedema] Chronic Other ear and sense organ disorders (8 sources) Hearing loss 10-27-2022 Chronic Other gastrointestinal disorders (1 source) Splenomegaly, not elsewhere classified; Translations: [SPLENOMEGALY NEC] Onset: 09-02-2022 Episodic Other injuries and conditions due to external causes (8 sources) Injury of head 10-27-2022 Episodic Other [...] Test Name Value Interpretation Reference Range Facility Nonvisit Note - PTon 024 Nonvisit Note - PT Chart reviewed with eval prepped for scheduled eval. KK [facility] Screenson 01-17-2024 Screens [id number] #1.00TIFF [facility] Patient Educationon 01-16-20 24 Patient Education Obstetrics and Gynecology Kegel Exercises Kegel exercises can help strengthen your pelvic floor muscles. The pelvic floor is a group of muscles that support your rectum, small intestine, and bladder. In females, pelvic floor muscles also help support the uterus. These muscles help you control the flow of urine and stool (feces). Kegel exercises are painless and simple. They do not require any equipment. Your provider may suggest Kegel exercises to: ? Improve bladder and bowel control. ? Improve sexual response. ? Improve weak pelvic floor muscles after surgery to remove the uterus (hysterectomy) or after , in females. ? Improve weak pelvic floor muscles after prostate gland removal or surgery, in males. Kegel exercises involve squeezing your pelvic floor muscles. These are the same muscles you squeeze when you try to stop the flow of urine or keep from passing gas. The exercises can be done while sitting, standing, or lying down, but it is best to vary your position. Ask your health care provider which exercises are safe for you. Do exercises exactly as told by your health care provider and adjust them as directed. Do not begin these exercises until told by your health care provider. Exercises How to do Kegel exercises: 1. Squeeze your pelvic floor muscles tight. You should feel a tight lift in your rectal area. If you are a female, you should also feel a tightness in your vaginal area. Keep your stomach, buttocks, and legs relaxed. 2. Hold the muscles tight for up to 10 seconds. 3. Breathe normally. 4. Relax your muscles for up to 10 seconds. 5. Repeat as told by your health care provider. Repeat this exercise daily as told by your health care provider. Continue to do this exercise for at least 4?6 weeks, or for as long as told by your health care provider. You may be referred to a physical therapist who can help you learn more about how to do Kegel exercises. Depending on your condition, your health care provider may recommend: ? Varying how long you squeeze your muscles. ? Doing several sets of exercises every day. ? Doing exercises for several weeks. ? Making Kegel exercises a part of your regular exercise routine. This information is not intended to replace advice given to you by your health care provider. Make sure you discuss any questions you have with your health care provider. Document Revised: 12/08/2021 Document Reviewed: 12/08/2021 [employer] Patient Education ? 2022 [employer] [facility] Urology Office/Clinic Noteon 01-16-2024 Urology Office/Clinic Note Chief Complaint Pt is here for urinary urgency HPI Staff Last seen in our office by USMAN 10/02/23 DX: Kidney Stone, Renal Cyst & Gross Hematuria *No Urology Meds NEG MicroUA & C&S at time of last encounter 1yr f/u w/KUB RASHEEDA & Metabolic Work Up scheduled 09/2024 B&BSQ 17 PVR 25 Dysuria: denies Incomplete bladder emptying: yes Hematuria: denies visible blood Frequency: unknown Urgency: yes Nocturia: sometimes once nightly Stream: denies hesitation, normal stream Leaking: yes Post void dripping: yes Wearing pads/ Depends: pads daily changes every 2-3 hours Urge incontinence: yes Stress incontinence: sometimes Incontinence without Sensory Awareness: yes Abdominal pain: denies Flank pain: denies Sexual complaints: N/A History of Present Illness Tests reviewed: reviewed UA, PVR I have reviewed the previous health record information and history for this patient from NILESH Ball. I have reviewed and verified the staff HPI to be accurate for this encounter. Review of Systems PHQ Score Initial Depression Screen Score: 0 SCORE ROS - Provider Constitutional: denies weight loss, denies hot flashes. Eyes: denies eye problems. Gastrointestinal: denies nausea, denies vomiting. Cardiovascular: denies chest pain or angina. Integumentary: no dryness Musculoskeletal: denies musculoskeletal symptoms. ENMT: denies otolaryngeal symptoms. Respiratory: no shortness of breath. Heme/Lymph: denies easy bleeding tendency, denies easy bruising tendency. Psychiatric: no confusion, no anxiety. Genitourinary: See HPI. Physical Exam Vitals & Measurements T: 37.0 ?C(Temporal Artery) HR: 67(Peripheral) BP: 132/84 HT: 58 in HT: 148 cm WT: 95 kg WT: 209 lb BMI: 43.37 General Appearance: alert , no acute distress, well nourished, well developed female. 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 1. Urge incontinence (N39.41: Urge incontinence) BBS 17. UA today shows small leuks. Asx. PVR 25 mL. Emptying well. Leakage has worsened since stent removal. Has severe urgency. Admits she waits to go to bathroom due to work. Denies pain/burning with urination. Denies straining to void. We discussed the pathophysiology of urge incontinence. We discussed possible treatment options including doing nothing, Kegels/physical therapy +/- biofeedback, and trial of medication. She was instructed on doing 3 Kegels when she gets the urge to void before going to the bathroom in an attempt to control her urinary urges. She should exercise her pelvic floor muscles by doing 30-60 repetitions per day. She was counseled regarding bladder retraining, diet choices, and fluid restriction. Treatment options and plan of care discussed with the patient in detail, patient chooses: 1.Patient was informed that first line treatment is behavioral therapy. This includes: - Fluid balancing and sometimes restriction - most women find that a 25% reduction of their fluid intake reduces urinary frequency and urgency - Reducing caffeine or other bladder stimulants will increase the success of these modifications -Bladder retraining - she was given instructions on her bladder retraining -Delayed voiding to help defer the overwhelming urge -Pelvic floor muscle exercises - using biofeedback with pelvic physical therapy or on her own at home -Weight loss 2. Patient was informed that second line treatment includes medications. We discussed Mirabegron/Gemtesa and that the side effects include possible increase in blood pressure in a small minority of patients, however insurance does not always cover this. We also discussed anticholinergic medications which can have the side effects of dry eyes, dry mouth, constipation and rarely cognitive changes. We discussed anticholinergic medications. Side effects and appropriate usage of the medication were discussed with the patient in detail which include, but are not limited to, dry mouth, constipation, visual disturbances, urinary retention, and exacerbation of urinary symptoms. I instructed the patient to contact me immediately if he has any significant side effects and discontinue the medication. Pt elects for behavioral modification and PFPT: -Avoid bladder irritants. Educational pamphlets provided. -Practice Kegels -Referral to [place] [facility] 2. Kidney stone (N20.0: Calculus of kidney) CT AP w/wo con 08/26/22 @[facility] stone 7.5 mm. 1-2 [...] Di 90%, CaOx mono 5%, Hydroxyapatite 5% RASHEEDA & KUB 08/22/23 - (more content not included)... Normal Vo [facility] Comment on above: Result Comment: Elec tronically Signed By: Arelis Yip MD\.br\Date and Time Signed: 01/16/24 16:38 EDT\.br\Electronically Co-Signed By: Tammie Torres\.br\Date and Time Co-Signed: 01/16/24 10:24 EDT Reminderson 10-09-2023 Reminders - From: Bethany March To: EU - Recalls Phi; Sent: 03/14/2023 12:46:20 EDT Show up: 08/13/2023 [...] have results. I faxed orders over to [facility] for RASHEEDA/KUB. Uric Acid and Citric Acid [...] urine if we/they don't have any results Thanks, FAB RASHEEDA/KUB results in pt chart Called pt and left VM to return our call to the office. Called pt and left VM to return our call Pt seen KML on 10/02/23 [facility] C Urineon 10-05-2023 Bacteria identified Cx Nom (U) Microbiology PROCEDURE: Urine Culture [R1] SOURCE: U Random BODY SITE: COLLECTED DATE/TIME: 10/02/2023 13:55 EST RECEIVED DATE/TIME: 10/03/2023 11:15 EST START DATE/TIME: 10/03/2023 11:15 EST FREE TEXT SOURCE: MARIA DE JESUS ANTONIO PA-C, PA-C, JENNIFER E FINAL REPORTS Final Report [] Verified Date/Time: 10/05/2023 10:43 EST 3,000 cfu/ml Mixed skin contaminants Performing Locations R1: This test was performed at: [facility], [address] [place] [address], [facility] , , [facility] Comment on above: Performed By: #### [id number] ####[facility] [id number] [place] [address] Lab Reportson 10-04-2023 Lab Reports [id number] 7#1.00TIFF [facility] Lab Reports [id number] #1.00TIFF [facility] Ambulatory Visit Summaryon 0 10-02-2023 Ambulatory Visit Summary KEYONA ATKINS :2000 Visit Date:10/02/2023 Ambulatory Visit Instructions Your Diagnosis Kidney stone Renal cyst Gross hematuria Your Care Team Attending Physician - MARIA DE JESUS ANTONIO PA-C Primary Care Physician - MIKAELA MARCH CNP This Is Your Medications List busPIRone (busPIRone 10 mg Tab) cholecalciferol (Vitamin D3) enalapril (enalapril 5 mg Tab) loratadine (loratadine 10 mg Tab) melatonin (melatonin 3 mg Tab) metoprolol (metoprolol 25 mg ER Tab) mometasone topical (mometasone Top 0.1% Crm 15 gram) montelukast (montelukast 10 mg Tab) sertraline (sertraline 50 mg Tab) Procedures Performed Cystoscopic removal of ureteric stent (11/13/2022), Cystoscopic laser lithotripsy of ureteric calculus (11/08/2022), Urethral dilatation (11/08/2022), Tonsillectomy. Discharge Vitals Heart Rate (Peripheral) 80 Respiratory Rate 16 Blood Pressure 121/69 Height 148 cm Height 58 in Weight 95 kg Weight 209 lb BMI 43.37 What to do next Scheduled Follow-Up Appointments Sunday 9:00 AM EST With: PACO ROWE, MARIA DE JESUS Perez Where: [facility] Patient Educationon 10-02-19 Patient Education Urology Kidney Stones Kidney stones are rock-like masses that form inside of the kidneys. Kidneys are organs that make pee (urine). A kidney stone may move into other parts of the urinary tract, including: ? The tubes that connect the kidneys to the bladder (ureters). ? The bladder. ? The tube that carries urine out of the body (urethra). Kidney stones can cause very bad pain and can block the flow of pee. The stone usually leaves your body (passes) through your pee. You may need to have a doctor take out the stone. What are the causes? Kidney stones may be caused by: ? A condition in which certain glands make too much parathyroid hormone (primary hyperparathyroidism) . ? A buildup of a type of crystals in the bladder made of a chemical called uric acid. The body makes uric acid when you eat certain foods. ? Narrowing (stricture) of one or both of the ureters. ? A kidney blockage that you were born with. ? Past surgery on the kidney or the ureters, such as gastric bypass surgery. What increases the risk? You are more likely to develop this condition if: ? You have had a kidney stone in the past. ? You have a family history of kidney stones. ? You do not drink enough water. ? You eat a diet that is high in protein, salt (sodium), or sugar. ? You are overweight or very overweight (obese). What are the signs or symptoms? Symptoms of a kidney stone may include: ? Pain in the side of the belly, right below the ribs (flank pain). Pain usually spreads (radiates) to the groin. ? Needing to pee often or right away (urgently). ? Pain when going pee (urinating). ? Blood in your pee (hematuria). ? Feeling like you may vomit (nauseous). ? Vomiting. ? Fever and chills. How is this treated? Treatment depends on the size, location, and makeup of the kidney stones. The stones will often pass out of the body through peeing. You may need to: ? Drink more fluid to help pass the stone. In some cases, you may be given fluids through an IV tube put into one of your veins at the hospital. ? Take medicine for pain. ? Make changes in your diet to help keep kidney stones from coming back. Sometimes, medical procedures are needed to remove a kidney stone. This may involve: ? A procedure to break up kidney stones using a beam of light (laser) or shock waves. ? Surgery to remove the kidney stones. Follow these instructions at home: Medicines ? Take kzbe-ufh-vryfobw and prescription medicines only as told by your doctor. ? Ask your doctor if the medicine prescribed to you requires you to avoid driving or using heavy machinery. Eating and drinking ? Drink enough fluid to keep your pee pale yellow. You may be told to drink at least 8?10 glasses of water each day. This will help you pass the stone. ? If told by your doctor, change your diet. This may include: ? Limiting how much salt you eat. ? Eating more fruits and vegetables. ? Limiting how much meat, poultry, fish, and eggs you eat. ? Follow instructions from your doctor about eating or drinking restrictions. General instructions ? Collect pee samples as told by your doctor. You may need to collect a pee sample: ? 24 hours after a stone comes out. ? 8?12 weeks after a stone comes out, and every 6?12 months after that. ? Strain your pee every time you pee (urinate), for as long as told. Use the strainer that your doctor recommends. ? Do not throw out the stone. Keep it so that it can be tested by your doctor. ? Keep all follow-up visits as told by your doctor. This is important. You may need follow-up tests. How is this prevented? To prevent another kidney stone: ? Drink enough fluid to keep your pee pale yellow. This is the best way to prevent kidney stones. ? Eat healthy foods. ? Avoid certain foods as told by your doctor. You may be told to eat less protein. ? Stay at a healthy weight. Where to find more information ? National Kidney Foundation (NKF): www.kidney.org ? [employer] (UCF): www.urologyhealth.or g Contact a doctor if: ? You have pain that gets worse or does not get better with medicine. Get help right away if: ? You have a fever or chills. ? You get very bad pain. ? You get new pain in your belly (abdomen). ? You pass out (faint). ? You cannot pee. Summary ? Kidney stones are rock-like masses that form inside of the kidneys. ? Kidney stones can cause very bad pain and can block the flow of pee. ? The stones will often pass out of the body through peeing. ? Drink enough fluid to keep your pee pale yellow. This information is not intended to replace advice given to you by your health care provider. Make sure you discuss any questions you have with your health care provider. Document Revised: 04/03/2022 Document Reviewed: 04/03/2022 [employer] Patient Education ? 2022 [employer] Normal [facility] URINALYSISOrdered By: Anne Taveras on 10-02-2023 Bacteria LM Ql (Urine sed) 1+ /HPF Invalid Interpretation Code Trace/HPF FT UA Auto SS Bilirubin Ql (U) Negative (10/02/23 1:55 PM) Normal Negative FT UA Auto SS Calcium oxalate crystals LM Ql (Urine sed) Present (10/02/23 1:55 PM) Normal FT UA Auto SS Clarity (U) SL CLOUDY Invalid Interpretation Code FT UA Auto SS Color (U) Yellow (10/02/23 1:55 PM) Normal Yellow FT UA Auto SS Epithelial cells.squamous LM.HPF (Urine sed) [#/Area] 3-4 /HPF Normal 0-2/HPF [facility] UA Aut o SS Glucose Test strip (U) [Mass/Vol] Negative (10/02/23 1:55 PM) Normal Negative [facility] UA Auto SS Hemoglobin Ql (U) Negative (10/02/23 1:55 PM) Normal Negative [facility] UA Auto SS Ketones (U) [Mass/Vol] Negative (10/02/23 1:55 PM) Normal Negative [facility] UA Auto SS Creola.plasma/Lithiu m.RBC (Bld) [Mass ratio] 0-3 /HPF Normal 0-3/HPF [facility] UA Auto SS Mucus Ql (Urine sed) Trace (10/02/23 1:55 PM) Normal [facility] UA Auto SS Nitrite Ql (U) Negative (10/02/23 1:55 PM) Normal Negative [facility] UA Auto SS pH (U) 6.5 *NA* (10/02/23 1:55 PM) Invalid Interpretation Code 5.0 - 9.0 [facility] UA Auto SS Protein (U) [Mass/Vol] Negative (10/02/23 1:55 PM) Normal Negative [facility] UA Auto SS Specific gravity (U) [Rel density] 1.020 *NA* (10/02/23 1:55 PM) Invalid Interpretation Code 1.005 - 1.030 [facility]A Auto SS UA Spec Desc Random Urine (10/02/23 1:55 PM) Normal [facility] [place]A Auto SS Urobilinogen Qn (U) 0.8856658 {Mi'U}/dL Normal 0.0 - 1.0 EU/dL [facility] [place]A Auto SS WBC Auto Ql (U) Negative (10/02/23 1:55 PM) Normal Negative [facility] [place]A Auto SS WBC LM.HPF (Urine sed) [#/Area] 0-5 /HPF Normal 0-5/HPF [facility] UA Auto SS Urinalysison 10-02-2023 Bacteria LM Ql (Urine sed) 1+ /HPF Abnormal Trace [facility] Comment on above: Performed By: #### 1 [id number] ####[facility] [address] [place] [address] Bilirubin Ql (U) Negative Normal Negative [facility] Comment on above: Performed By: #### 1 [id number] ####[facility] [address] [place] [address] Calcium oxalate crystals LM Ql (Urine sed) Present Normal [facility] Comment on above: Performed By: #### 1 [id number] ####[facility] [address] [place] [address] Clarity (U) SL CLOUDY Invalid Interpretation Code [facility] Comment on above: Performed By: #### 1 [id number] ####[address] [address] Color (U) YELLOW Normal Yellow [facility] Comment on above: Performed By: #### 1 [id number] ####[address] [address] Epithelial cells.squamous LM.HPF (Urine sed) [#/Area] 3-4 Normal 0-2 [facility] Comment on above: Performed By: #### 1 [id number] ####[address] [address] Glucose Test strip (U) [Mass/Vol] Negative Normal Negative [facility] Comment on above: Performed By: #### 1 [id number] ####[address] [address] Hemoglobin Ql (U) Negative Normal Negative [facility] Comment on above: Performed By: #### 1 [id number] ####[facility] [address] [place] [address] Ketones (U) [Mass/Vol] Negative Normal Negative [facility] Comment on above: Performed By: #### 1 [id number] ####[facility] [address] [place] [address] Creola.plasma/Lithiu m.RBC (Bld) [Mass ratio] 0-3 Normal 0-3 [facility] Comment on above: Performed By: #### 1 [id number] ####[facility] [address] [place] [address] Mucus Ql (Urine sed) TRACE Normal [facility] Comment on above: Performed By: #### 1 [id number] ####[facility] [address] [place] [address] Nitrite Ql (U) Negative Normal Negative [facility] Comment on above: Performed By: #### 1 [id number] ####[address] [address] pH (U) 6.5 [pH] Invalid Interpretation Code 5.0-9.0 [facility] Comment on above: Performed By: #### 1 [id number] ####[address] [address] Protein (U) [Mass/Vol] Negative Normal Negative [facility] Comment on above: Performed By: #### 1 [id number] ####[address] [address] Specific gravity (U) [Rel density] 1.020 Invalid Interpretation Code 1.005-1.030 [facility] Comment on above: Performed By: #### 1 [id number] ####[address] [address] Type of Urine collection method Random Urine Normal [facility] Comment on above: Performed By: #### 1 [id number] ####[address] [address] Urobilinogen Qn (U) 0.2 {Mi'U}/dL Normal 0.0-1.0 [facility] Comment on above: Performed By: #### 1 [id number] ####[address] [address] WBC Auto Ql (U) Negative Normal Negative [facility] Comment on above: Performed By: #### 1 [id number] ####[address] [address] WBC LM.HPF (Urine sed) [#/Area] 0-5 Normal 0-5 [facility] Comment on above: Performed By: #### 1 [id number] ####[address] [place] [address] Urology Office/Clinic Noteon 10-02-2023 Urology Office/Clinic Note Chief Complaint 6m KUB/RASHEEDA & 24hr urine HPI Staff KML pt 23 year old female here for 6 month with KUB and RASHEEDA. Previous DX: renal stone, gross hematuria and renal cyst. RASHEEAD and KUB done 08/22/23. Following last encounter pt was to complete Litholink & PTH/Uric Acid (labs missed on previous blood draw) Litholink specimen was lost in transit. 24hr urine completed @ [facility]. Denies flank pain since last encounter. Denies pain/burning and visible blood in urine. Review of Systems PHQ Score Initial Depression Screen Score: 0 SCORE no fever, chills, malaise, myalgia. no rash/lesions. no chest pain, palpitations, or SOB. no abdominal pain, nausea, vomiting. 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 1. Kidney stone (N20.0: Calculus of kidney) CT AP [...] Di 90%, CaOx mono 5%, Hydroxyapatite 5% RASHEEDA & KUB 08/22/23 - same as January 2023, now measuring the possible stone (vs calc at interface) as 6mm metabolic work-up reviewed at length. 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 Will send results to his office and pt to call to see if any additional eval indicated. -offered 6mo vs 1 yr f/u, pt prefers the latter. -return in 1 yr w repeat KUB, RASHEEDA, and metabolic workup. recall placed. Ordered: E&M of Est. Patient Moderate 30-39 Min 29156 2. Renal cyst (N28.1: Cyst of kidney, acquired) simple cyst does not require additional monitoring Ordered: E&M of Est. Patient Moderate 30-39 Min 17594 Urnls Dip Stick Auto w/o Microscopy POC 52360 3. Gross hematuria (R31.0: Gross hematuria) UA today shows trace intact hgb. Pt denies any visible blood in urine. we will send for microscopic eval and culture. if shows significant microhematuria and completely negative cx, then we will need to proceed with hematuria eval. hematuria eval components were not discussed in depth during today's visit. if + will need phone call or o.v. to discuss at length. if micro negative then no additional action needed at this time - pt aware that no news is good news in this regard. Ordered: E&M of Est. Patient Moderate 30-39 Min 24756 Urinalysis Urine Culture Follow-up With When Contact Information MARIA DE JESUS ANTONIO PA-C, URL Within 1 year Additional Instructions: Patient Education Kidney Stones, Beqb-py-Zkll Problem List/Past Medical History Ongoing Asthma Deafness Gross hematuria Head ache Head injury Heart disease Hypertension Kidney stone Renal cyst Renal stone Historical No qualifying data Procedure/Surgical History Cystoscopic removal of ureteric stent (11/13/2022), Cystoscopic laser lithotripsy of ureteric calculus (11/08/2022), Urethral dilatation (11/08/2022), Tonsillectomy. Medications busPIRone 10 mg Tab enalapril 5 mg Tab, Oral, Daily loratadine 10 mg Tab, Oral, Daily melatonin 3 mg Tab, 3 mg= 1 tab(s), Oral, Once a day (at bedtime), PRN metoprolol 25 mg ER Tab, Oral, Daily mometasone Top 0.1% Crm 15 gram montelukast 10 mg Tab, Oral, Daily sertraline 50 mg Tab, Oral, Daily Vitamin D3 Allergies No Known Allergies Social History Tobacco Never (less than 100 in lifetime) Tobacco Use:. Never Smokeless Tobacco Use:. Household tobacco concerns: No. Yes, 10/02/2023 Family History Anemia: Mother. Hypertension: Mother. Migraine: Mother. Seizure: Mother. Immunizations Vaccine Date Status SARS-CoV-2 (COVID-19) mRNA BNT-162b2 vax 04/01/2021 Recorded SARS-CoV-2 (COVID-19) mRNA BNT-162b2 vax 03/11/2021 Recorded human papillomavirus vaccine 11/07/2019 Recorded human papillomavirus vaccine 07/09/2019 Recorded human papillomavirus vaccine 05/06/2019 Recorded mening (more content not included)... [facility] Comment on above: Result Comment: Elec tronically Signed By: MARIA DE JESUS ANTONIO PA-C\.radha\Date and Time Signed: 10/02/23 14:03 EST Provider Orderson 09-12-2023 Provider Orders [id number] #1.00OTGTIFF [facility] Reminderson 08-27-2023 Reminders - From: Kari Stanton To: LUCINDA - Katia Yip; Sent: 03/14/2023 09:53:04 EDT Show up: 08/19/2023 09:52:00 EST Subject: RASHEEDA/KUB/ PTH/Urice acid Due Date/Time: 08/19/2023 09:53:00 EST Reminder/Recall to be completed prior to patients 6m follow up with Dr Yip on 09/19/23 H duplicate message. [facility] RAD - MISCon 08-24-2023 RAD - MISC [id number] #1.00TIFF [facility] RAD - Ultrasound Reporton RAD - Ultrasound Report [id number] #1.00TIFF [facility] Lab Reportson 06-18-2023 Lab Reports [id number]# 1.00TIFF [facility] Provider Orderson 06-15-2023 Provider Orders [id number] #1.00OTGTIFF [facility] Provider Orderson 06-04-2023 Provider Orders [id number] [facility]20[facility] Lab Reports [id number] #1.00CD:127 [facility] Ambulatory Visit Summaryon 0 03-14-2023 Ambulatory Visit Summary KEYONA ATKINS :2000 Visit Date:03/14/2023 Ambulatory Visit Instructions Your Diagnosis Renal stone Gross hematuria Renal cyst Tests Performed Urnls Dip Stick Auto w/o Microscopy POC 89324 US Renal -- Results Pending -- XR [...] Arelis Yip MD Where: [facility] Formson 03-14-2023 Forms [id number] #1.00CD:127 [facility] Patient Educationon 03-14-20 Patient Education Nephrology Dietary [...] Spinach (cooked), rhubarb, beets, sweet potatoes, and Kosovan chard. ? Peanuts. ? Potato chips, taiwanese fries, and baked potatoes with skin on. ? Nuts and nut products. ? Chocolate. ? If you regularly take a diuretic medicine, make sure to eat at least 1 or 2 servings of fruits or vegetables that are high in potassium each day. These include: ? Avocado. ? Banana. ? Mayes, prune, carrot, or tomato juice. ? Baked [...] fish oil, or vitamin B6. ? Take loih-cxg-qolpgqf and prescription medicines only as told by your health care provider. These include supplements. What foods should I limit? Limit your in (more content not included)... Normal [facility] Urology Office/Clinic Noteon 03-14-2023 Urology Office/Clinic Note Chief Complaint S/P Ureteroscopy RASHEEDA/KUB HPI Staff S/P Cysto/Lt RG/Laser Litho/Stone Extraction & Lt Stent Placement w/UD done11/08/22. Stent was then removed 11/13/22. Pt did go to [place] [facility] following stent removal due to nausea [...] Dietary Guidelines to Help Prevent Kidney Stones IBethany, personally scribed for Dr. Yip on 03/14/2023 10:03:47. . Documentation recorded by the jesusibBethany perez, accurately reflects the services(s) I performed and decisions made by me. Authenticated by Dr. Yip on 03/14/2023 10:37:38. Problem List/Past Medical History Ongoing Asthma Deafness Gross hematuria Head ache Head injury Heart disease Hypertension Kidney stone Renal cyst Renal stone Historical No qualifying data Procedure/Surgical H (more content not included)... Normal [facility] Comment on above: Result Comment: Elec tronically Signed By: Arelis Yip MD\.br\Date and Time Signed: 03/14/23 10:44 EDT\.br\Electronically Co-Signed By: Bethany March\.br\Date and Time Co-Signed: 03/14/23 10:04 EDT RAD - MISCon 01-23-2023 RAD - MISC [id number] #1.00CD:127 Normal [facility] RAD - Ultrasound Reporton RAD - Ultrasound Report [id number]# 1.00CD:127 Normal [facility] CALCULI, URINARYon 3 2,8 Dihydroxyadenine Normal [facility] Comment on above: Performed By: #### C ALCULI #### [facility] [address] [address] [address] Graciela Paz Ammonium Acid Urate Normal [facility] Comment on above: Performed By: #### C ALCULI #### [facility] [address] [address] [address] Graciela Paz Bilirubin Ql (U) Normal [facility] Comment on above: Performed By: #### C ALCULI #### [facility] [address] [address] [address] Graciela Paz Ca Oxalate Dihydrate 90 % Normal [facility] Comment on above: Performed By: #### C ALCULI #### [facility] [address] [address] [address] Graciela Paz CaHPO4 (Brushite) Normal [facility] Comment on above: Performed By: #### C ALCULI #### [facility] [address] [address] [address] Graciela Paz Calcium Bilirubinate Normal [facility] Comment on above: Performed By: #### C ALCULI #### [facility] [address] [address] [address] Graciela Paz Calcium Carbonate Normal [facility] Comment on above: Performed By: #### C ALCULI #### [facility] [address] [address] [address] Graciela Paz Calcium Oxalate Monohydrate 5 % [facility] Comment on above: Performed By: #### C ALCULI #### [facility] [address] [address] [address] Graciela Paz Calcium Palmitate Normal [facility] Comment on above: Performed By: #### C ALCULI #### [facility] [address] [address] [address] Graciela Paz Calcium Phosphate [facility] Comment on above: Performed By: #### C ALCULI #### [facility] [address] [address] [address] Graciela Paz Calcium Stearate [facility] Comment on above: Performed By: #### C ALCULI #### [facility] [address] [address] [address] Graciela Paz Carbonate Apatite Normal [facility] Comment on above: Performed By: #### C ALCULI #### [facility] [address] [address] [address] Graciela Paz Cellular Material [facility] Comment on above: Performed By: #### C ALCULI #### [facility] [address] [address] [address] Graciela Paz Cholesterol [facility] Comment on above: Performed By: #### C ALCULI #### [facility] [address] [address] [address] Graciela Paz Color (U) Nolasco Normal [facility] Comment on above: Performed By: #### C ALCULI #### [facility] [address] [address] [address] Graciela Paz Comment Comment Normal [facility] Comment on above: Result Comment: Calc ium phosphate (hydroxyl form) includes hydroxyapatite, amorphous calcium phosphate, and whitlockite. Hydroxyapatite is the most common of the calcium phosphate salts found in human kidney stones. Performed By: #### C ALCULI #### [facility] [address] [address] [address] Graciela Paz Result Comment: Calc ulus received wet. Wet calculi must be dried before analysis, which delays reporting of results. Leaving calculi wet (such as water, saline, blood, urine) may lead to changes in composition. Comment: Comment Normal [facility] Comment on above: Result Comment: Emily mullen questions regarding Calculi Analysis contact [facility] at: [phone]. Performed By: #### C ALCULI #### [facility] [address] [address] [address] Graciela Paz Composition Comment Normal [facility] Comment on above: Result Comment: Perc entage (Represents the % composition) Performed By: #### C ALCULI #### [facility] [address] [address] [address] Graciela Paz Cystine Normal [facility] Comment on above: Performed By: #### C ALCULI #### [facility] [address] [place] [address] Dr. Graciela Paz Disclaimer: Comment Normal [facility] Comment on above: Result Comment: This test was developed and its performance characteristics determined by [facility]. It has not been cleared or approved by the Food and Drug Administration. Performed By: #### C ALCULI #### [facility] [address] [address] [address] Graciela Paz Dried Blood [facility] Comment on above: Performed By: #### C ALCULI #### [facility] [address] [address] [address] Graciela Paz Drug or Metabolite Normal [facility] Comment on above: Performed By: #### C ALCULI #### [facility] [address] [address] [address] Graciela Paz Hydroxyapatite 5 % Normal [facility] Comment on above: Performed By: #### C ALCULI #### [facility] [address] [address] [address] Graciela Paz Mg NH4 PO4 (Struvite) [facility] Comment on above: Performed By: #### C ALCULI #### [facility] [address] [address] [address] Graciela Paz MgHPO4 (Newberyite) Normal [facility] Comment on above: Performed By: #### C ALCULI #### [facility] [address] [address] [address] Graciela Paz Other component(s) Normal [facility] Comment on above: Performed By: #### C ALCULI #### [facility] [address] [address] [address] Graciela Paz PDF . Normal [facility] Comment on above: Performed By: #### C ALCULI #### [facility] [address] [address] [address] Graciela Paz Photo Comment [facility] Comment on above: Result Comment: Phot ograph will follow under a separate cover Performed By: #### C ALCULI #### [facility] [address] [address] [address] Graciela Paz Please note: Comment Normal [facility] Comment on above: Result Comment: Calc rafal report will follow via computer, mail or surgical consultant delivery. Performed By: #### C ALCULI #### [facility] [address] [address] [address] Graciela Paz Size 2x3 [facility] Comment on above: Result Comment: Mult iple pieces received. Dimensions of the largest piece reported. Performed By: #### C ALCULI #### [facility] [address] [address] [address] Graciela Paz Sodium Acid Urate Normal [facility] Comment on above: Performed By: #### C ALCULI #### [facility] [address] [address] [address] Graciela Paz Source Comment [facility] Comment on above: Result Comment: Left Kidney Performed By: #### C ALCULI #### [facility] [address] [place] [address] Dr. Graciela Paz Triamterene [facility] Comment on above: Performed By: #### C ALCULI #### [facility] [address] [place] [address] Dr. Graciela Paz Uric Acid [facility] Comment on above: Performed By: #### C ALCULI #### [facility] [address] [place] [address] Dr. Graciela Paz Uric Acid Dihydrate [facility] Comment on above: Performed By: #### C ALCULI #### [facility] [address] [place] [address] Dr. Graciela Paz Weight 58 mg [facility] Comment on above: Performed By: #### C ALCULI #### [facility] [address] [place] [address] Dr. Graciela Paz Xanthine [facility] Comment on above: Performed By: #### C ALCULI #### [facility] [address] [place] [address] Dr. Graciela Paz CBC AUTO DIFFon 11-13-2022 BASO # 0.1 103/ul Normal 0.0-0.1 [facility] Comment on above: Performed By: #### C BC #### [facility] [address] [place] [address] Dr. Graciela Paz Basophils/100 WBC (Bld) 0.8 % Normal 0.2-2.0 [facility] Comment on above: Performed By: #### C BC #### [facility] [address] [place] [address] Dr. Graciela Paz EO # 0.2 103/ul Normal 0.0-0.7 [facility] Comment on above: Performed By: #### C BC #### [facility] [address] [place] [address] Dr. Graciela Paz Eosinophils/100 WBC (Bld) 3.2 % Normal 0.9-7.0 [facility] Comment on above: Performed By: #### C BC #### [facility] [address] [place] [address] Dr. Graciela Paz Erythrocyte distribution width (RBC) [Ratio] 13.2 % Normal 11.0-15.0 [facility] Comment on above: Performed By: #### C BC #### [facility] [address] [place] [address] Dr. Graciela Paz Hematocrit (Bld) [Volume fraction] 37.3 % Normal 36.0-48.0 [facility] Comment on above: Performed By: #### C BC #### [facility] [address] [place] [address] Dr. Graciela Paz Hemoglobin (Bld) [Mass/Vol] 12.5 g/dL Normal 12.0-16.0 [facility] Comment on above: Performed By: #### C BC #### [facility] [address] [place] [address] Dr. Graciela Paz IG # 0.03 10e3/ul Normal 0.00-0.03 [facility] Comment on above: Performed By: #### C BC #### [facility] [address] [place] [address] Dr. Graciela Paz IG % 0.5 % Normal 0.0-0.5 [facility] Comment on above: Performed By: #### C BC #### [facility] [address] [place] [address] Dr. Graciela Paz LYMPH # 1.5 103/ul Normal 1.2-3.8 [facility] Comment on above: Performed By: #### C BC #### [facility] [address] [place] [address] Dr. Graciela Paz Lymphocytes/100 WBC (Bld) 23.7 % Normal 20.5-60.0 [facility] Comment on above: Performed By: #### C BC #### [facility] [address] [place] [address] Dr. Graciela Paz MANUAL DIFF REQ NO Normal [facility] Comment on above: Performed By: #### C BC #### [facility] [address] [address] [address] Graciela Paz MCH (RBC) [Entitic mass] 30.3 pg Normal 26.7-34.0 [facility] Comment on above: Performed By: #### C BC #### [facility] [address] [address] [address] Graciela Paz MCHC (RBC) [Mass/Vol] 33.5 g/dL Normal 29.9-35.2 [facility] Comment on above: Performed By: #### C BC #### [facility] [address] [place] [address] Dr. Graciela Paz MCV (RBC) [Entitic vol] 90.5 fL Normal 81.0-99.0 [facility] Comment on above: Performed By: #### C BC #### [facility] [address] [place] [address] Dr. Graciela Paz MONO # 0.6 103/ul Normal 0.3-0.8 [facility] Comment on above: Performed By: #### C BC #### [facility] [address] [place] [address] Dr. Graciela Paz Monocytes/100 WBC (Bld) 9.1 % Normal 1.7-12.0 [facility] Comment on above: Performed By: #### C BC #### [facility] [address] [place] [address] Dr. Graciela Paz NEUT # 4.1 103/ul Normal 1.4-6.5 [facility] Comment on above: Performed By: #### C BC #### [facility] [address] [place] [address] Dr. Graciela Paz Neutrophils/100 WBC (Bld) 62.7 % Normal 43.0-75.0 [facility] Comment on above: Performed By: #### C BC #### [facility] [address] [place] [address] Dr. Graciela Paz Platelet mean volume (Bld) [Entitic vol] 9.7 fL Normal 9.5-13.5 [facility] Comment on above: Performed By: #### C BC #### [facility] [address] [place] [address] [address] Graciela Paz PLT 193 103/ul Normal 150-450 [facility] Comment on above: Performed By: #### C BC #### [facility] [address] [place] [address] Dr. Graciela Paz RBC 4.12 106/ul Critically low 4.20-5.40 [facility] Comment on above: Performed By: #### C BC #### [facility] [address] [place] [address] Dr. Graciela Paz WBC 6.5 103/ul Normal 4.0-11.0 [facility] Comment on above: Performed By: #### C BC #### [facility] [address] [place] [address] Dr. Graciela Paz ER URINE PROFILEon 3 Bilirubin Ql (U) SMALL Abnormal NEGATIVE [facility] Comment on above: Performed By: #### U MICRO, ERUR #### [facility] [address] [place] [address] Dr. Graciela Paz Clarity (U) CLOUDY Abnormal CLEAR [facility] Comment on above: Performed By: #### U MICRO, ERUR #### [facility] [address] [place] [address] Dr. Graciela Paz Color (U) DK. YELLOW Normal YELLOW [facility] Comment on above: Performed By: #### U MICRO, ERUR #### [facility] [address] [place] [address] Dr. Graciela Paz ERUAHD A micrscopic examination will be performed if indicated. Normal [facility] Comment on above: Performed By: #### U MICRO, ERUR #### [facility] [address] [place] [address] Dr. Graciela Paz Glucose Ql (U) Negative Normal NEGATIVE [facility] Comment on above: Performed By: #### U MICRO, ERUR #### [facility] [address] [place] [address] Dr. Graciela Paz Hemoglobin Ql (U) LARGE Abnormal NEGATIVE [facility] Comment on above: Performed By: #### U MICRO, ERUR #### [facility] [address] [place] [address] Dr. Graciela Paz Ketones Ql (U) TRACE Abnormal NEGATIVE [facility] Comment on above: Performed By: #### U MICRO, ERUR #### [facility] [address] [place] [address] Dr. Graciela Paz LEUKOCYTES TRACE Abnormal NEGATIVE [facility] Comment on above: Performed By: #### U MICRO, ERUR #### [facility] [address] [place] [address] Dr. Graciela Paz Nitrite Ql (U) Negative Normal NEGATIVE [facility] Comment on above: Performed By: #### U MICRO, ERUR #### [facility] [address] [place] [address] Dr. Graciela Paz pH (U) 6.5 [pH] Normal 5-9 [facility] Comment on above: Performed By: #### U MICRO, ERUR #### [facility] [address] [place] [address] Dr. Graciela Paz Protein (U) [Mass/Vol] 300 mg/dL Abnormal NEGATIVE/ TRACE [facility] Comment on above: Performed By: #### U MICRO, ERUR #### [facility] [address] [place] [address] Dr. Graciela Paz SPEC GRAVITY 1.030 Abnormal 1.005-<=1.025 [facility] Comment on above: Performed By: #### U MICRO, ERUR #### [facility] [address] [place] [address] Dr. Graciela Paz UR MICRO IND INDICATED Normal [facility] Comment on above: Performed By: #### U MICRO, ERUR #### [facility] [address] [place] [address] Dr. Graciela Paz Urobilinogen Qn (U) 0.2 {Mi'U}/dL Normal 0.2 - 1. 0 [facility] Comment on above: Performed By: #### U MICRO, ERUR #### [facility] [address] [place] [address] [address] Graciela Paz PROF 14(COMP METB)on 023 Albumin [Mass/Vol] 4.4 g/dL Normal 3.4-5.0 [facility] Comment on above: Performed By: #### C MP #### [facility] [address] [place] [address] [address] Graciela Paz Albumin/Globulin [Mass ratio] 1.2 {ratio} Normal [facility] Comment on above: Performed By: #### C MP #### [facility] [address] [place] [address] Dr. Graciela Paz ALP [Catalytic activity/Vol] 105 U/L Normal 46-116 [facility] Comment on above: Performed By: #### C MP #### [facility] [address] [place] [address] Dr. Graciela Paz ALT [Catalytic activity/Vol] 54 U/L Normal 14-59 [facility] Comment on above: Performed By: #### C MP #### [facility] [address] [place] [address] Dr. Graciela Paz Anion gap [Moles/Vol] 13.9 mmol/L Normal [facility] Comment on above: Performed By: #### C MP #### [facility] [address] [place] [address] Dr. Graciela Paz AST [Catalytic activity/Vol] 38 U/L Critically high 15-37 [facility] Comment on above: Performed By: #### C MP #### [facility] [address] [place] [address] Dr. Graciela Paz Bilirubin [Mass/Vol] 0.5 mg/dL Normal 0.2-1.0 [facility] Comment on above: Performed By: #### C MP #### [facility] [address] [place] [address] Dr. Graciela Paz Calcium [Mass/Vol] 10.9 mg/dL Critically high 8.5-10.1 [facility] Comment on above: Performed By: #### C MP #### [facility] [address] [place] [address] [address] Graciela Paz Chloride [Moles/Vol] 103 mmol/L Normal 98-107 [facility] Comment on above: Performed By: #### C MP #### [facility] [address] [place] [address] Dr. Graciela Paz CO2 [Moles/Vol] 24.1 mmol/L Normal 21.0-32.0 [facility] Comment on above: Performed By: #### C MP #### [facility] [address] [place] [address] Dr. Graciela Paz Creatinine [Mass/Vol] 0.60 mg/dL Normal 0.55-1.02 [facility] Comment on above: Performed By: #### C MP #### [facility] [address] [place] [address] Dr. Graciela Paz EGFR-AF CO[place] RICAN >60 Normal >=60 [facility] Comment on above: Performed By: #### C MP #### [facility] [address] [place] [address] Dr. Graciela Paz EGFR-NON AF [place] >60 Normal >=60 [facility] Comment on above: Performed By: #### C MP #### [facility] [address] [place] [address] Dr. Graciela Paz Globulin (S) [Mass/Vol] 3.7 g/dL Normal [facility] Comment on above: Performed By: #### C MP #### [facility] [address] [place] [address] Dr. Graciela Paz Glucose [Mass/Vol] 111 mg/dL Critically high 74-106 [facility] Comment on above: Performed By: #### C MP #### [facility] [address] [place] [address] Dr. Graciela Paz Potassium [Moles/Vol] 4.0 mmol/L Normal 3.5-5.1 [facility] Comment on above: Performed By: #### C MP #### [facility] [address] [place] [address] Dr. Graciela Paz Protein [Mass/Vol] 8.1 g/dL Normal 6.4-8.2 [facility] Comment on above: Performed By: #### C MP #### [facility] [address] [place] [address] Dr. Graciela Paz Sodium [Moles/Vol] 137 mmol/L Normal 136-145 [facility] Comment on above: Performed By: #### C MP #### [facility] [address] [place] [address] Dr. Graciela Paz Urea nitrogen [Mass/Vol] 11.0 mg/dL Normal 7.0-18.0 [facility] Comment on above: Performed By: #### C MP #### [facility] [address] [place] [address] Dr. Graciela Paz Urea nitrogen/Creatinine [Mass ratio] 18.3 mg/mg Normal [facility] Comment on above: Performed By: #### C MP #### [facility] [address] [place] [address] Dr. Graciela Paz URINE MICROSCOPIC ONLYon BACTERIA NONE SEEN Normal NONE SEEN [facility] Comment on above: Performed By: #### U MICRO, ERUR #### [facility] [address] [place] [address] Dr. Graciela Paz Bacteria identified Cx Nom (U) NOT INDICATED Normal [facility] Comment on above: Performed By: #### U MICRO, ERUR #### [facility] [address] [place] [address] Dr. Graciela Paz CAST NONE SEEN Normal NONE SEEN [facility] Comment on above: Performed By: #### U MICRO, ERUR #### [facility] [address] [place] [address] Dr. Graciela Paz Crystals LM Nom (Urine sed) NONE SEEN Normal NONE SEEN [facility] Comment on above: Performed By: #### U MICRO, ERUR #### [facility] [address] [place] [address] Dr. Graciela Paz Epithelial cells LM Ql (Urine sed) RARE Normal NONE SEEN /RARE [facility] Comment on above: Performed By: #### U MICRO, ERUR #### [facility] [address] [place] [address] Dr. Graciela Paz MUCOUS NONE SEEN Normal NONE SEEN [facility] Comment on above: Performed By: #### U MICRO, ERUR #### [facility] [address] [place] [address] Dr. Graciela Paz RBC (U) [#/Vol] /uL Abnormal 0-2 [facility] Comment on above: Performed By: #### U MICRO, ERUR #### [facility] [address] [place] [address] Dr. Graciela Paz WBC 5-10 Abnormal NONE SEEN [facility] Comment on above: Performed By: #### U MICRO, ERUR #### [facility] [address] [place] [address] Dr. Graciela Paz PREG HCG QUALon 11-08-2022 , QUAL Negative Normal NEGATIVE [facility] Comment on above: Performed By: #### P REG #### [facility] [address] [place] [address] Dr. Graciela Paz CBC AUTO DIFFon 11-01-2022 BASO # 0.0 103/ul Normal 0.0-0.1 [facility] Comment on above: Performed By: #### C BC #### [facility] [address] [place] [address] Dr. Graciela Paz Basophils/100 WBC (Bld) 0.9 % Normal 0.2-2.0 [facility] Comment on above: Performed By: #### C BC #### [facility] [address] [place] [address] Dr. Graciela Paz EO # 0.3 103/ul Normal 0.0-0.7 [facility] Comment on above: Performed By: #### C BC #### [facility] [address] [place] [address] Dr. Graciela Paz Eosinophils/100 WBC (Bld) 5.9 % Normal 0.9-7.0 [facility] Comment on above: Performed By: #### C BC #### [facility] [address] [place] [address] Dr. Graciela Paz Erythrocyte distribution width (RBC) [Ratio] 13.0 % Normal 11.0-15.0 [facility] Comment on above: Performed By: #### C BC #### [facility] [address] [place] [address] Dr. Graciela Paz Hematocrit (Bld) [Volume fraction] 35.3 % Critically low 36.0-48.0 [facility] Comment on above: Performed By: #### C BC #### [facility] [address] [place] [address] Dr. Graciela Paz Hemoglobin (Bld) [Mass/Vol] 11.8 g/dL Critically low 12.0-16.0 [facility] Comment on above: Performed By: #### C BC #### [facility] [address] [place] [address] Dr. Graciela Paz IG # 0.01 10e3/ul Normal 0.00-0.03 [facility] Comment on above: Performed By: #### C BC #### [facility] [address] [place] [address] Dr. Graciela Paz IG % 0.2 % Normal 0.0-0.5 [facility] Comment on above: Performed By: #### C BC #### [facility] [address] [place] [address] Dr. Graciela Paz LYMPH # 1.3 103/ul Normal 1.2-3.8 [facility] Comment on above: Performed By: #### C BC #### [facility] [address] [place] [address] Dr. Graciela Paz Lymphocytes/100 WBC (Bld) 28.8 % Normal 20.5-60.0 [facility] Comment on above: Performed By: #### C BC #### [facility] [address] [place] [address] Dr. Graciela Paz MANUAL DIFF REQ NO Normal [facility] Comment on above: Performed By: #### C BC #### [facility] [address] [place] [address] Dr. Graciela Paz MCH (RBC) [Entitic mass] 30.0 pg Normal 26.7-34.0 [facility] Comment on above: Performed By: #### C BC #### [facility] [address] [place] [address] Dr. Graciela Paz MCHC (RBC) [Mass/Vol] 33.4 g/dL Normal 29.9-35.2 [facility] Comment on above: Performed By: #### C BC #### [facility] [address] [place] [address] Dr. Graciela Paz MCV (RBC) [Entitic vol] 89.8 fL Normal 81.0-99.0 [facility] Comment on above: Performed By: #### C BC #### [facility] [address] [place] [address] Dr. Graciela Paz MONO # 0.5 103/ul Normal 0.3-0.8 [facility] Comment on above: Performed By: #### C BC #### [facility] [address] [place] [address] Dr. Graciela Paz Monocytes/100 WBC (Bld) 10.3 % Normal 1.7-12.0 [facility] Comment on above: Performed By: #### C BC #### [facility] [address] [place] [address] Dr. Graciela Paz NEUT # 2.4 103/ul Normal 1.4-6.5 [facility] Comment on above: Performed By: #### C BC #### [facility] [address] [place] [address] Dr. Graciela Paz Neutrophils/100 WBC (Bld) 53.9 % Normal 43.0-75.0 [facility] Comment on above: Performed By: #### C BC #### [facility] [address] [place] [address] Dr. Graciela Paz Platelet mean volume (Bld) [Entitic vol] 9.2 fL Critically low 9.5-13.5 [facility] Comment on above: Performed By: #### C BC #### [facility] [address] [place] [address] Dr. Graciela Paz PLT 132 103/ul Critically low 150-450 [facility] Comment on above: Performed By: #### C BC #### [facility] [address] [place] [address] Dr. Graciela Paz RBC 3.93 106/ul Critically low 4.20-5.40 [facility] Comment on above: Performed By: #### C BC #### [facility] [address] [place] [address] Dr. Graciela Paz WBC 4.4 103/ul Normal 4.0-11.0 [facility] Comment on above: Performed By: #### C BC #### [facility] [address] [place] [address] Dr. Graciela Paz PROF CHEM 8 (BAS METB)on Anion gap [Moles/Vol] 12.8 mmol/L Normal [facility] Comment on above: Performed By: #### B MP #### [facility] [address] [place] [address] Dr. Graciela Paz Calcium [Mass/Vol] 10.1 mg/dL Normal 8.5-10.1 [facility] Comment on above: Performed By: #### B MP #### [facility] [address] [place] [address] Dr. Graciela Paz Chloride [Moles/Vol] 106 mmol/L Normal 98-107 [facility] Comment on above: Performed By: #### B MP #### [facility] [address] [place] [address] Dr. Graciela Paz CO2 [Moles/Vol] 25.2 mmol/L Normal 21.0-32.0 [facility] Comment on above: Performed By: #### B MP #### [facility] [address] [place] [address] Dr. Graciela Paz Creatinine [Mass/Vol] 0.44 mg/dL Critically low 0.55-1.02 [facility] Comment on above: Performed By: #### B MP #### [facility] [address] [place] [address] Dr. Graciela Paz EGFR-AF [place] >60 Normal >=60 [facility] Comment on above: Performed By: #### B MP #### [facility] [address] [place] [address] [address] Graciela Paz EGFR-NON AF [place] >60 Normal >=60 [facility] Comment on above: Performed By: #### B MP #### [facility] [address] [place] [address] [address] Graciela Paz Glucose [Mass/Vol] 96 mg/dL Normal 74-106 [facility] Comment on above: Performed By: #### B MP #### [facility] [address] [address] [address] Graciela Paz Potassium [Moles/Vol] 4.2 mmol/L Normal 3.5-5.1 [facility] Comment on above: Performed By: #### B MP #### [facility] [address] [address] [address] Graciela Paz Sodium [Moles/Vol] 140 mmol/L Normal 136-145 [facility] Comment on above: Performed By: #### B MP #### [facility] [address] [place] [address] [address] Graciela Paz Urea nitrogen [Mass/Vol] 9.0 mg/dL Normal 7.0-18.0 [facility] Comment on above: Performed By: #### B MP #### [facility] [address] [address] [address] Graciela Paz Urea nitrogen/Creatinine [Mass ratio] 20.5 mg/mg Normal [facility] Comment on above: Performed By: #### B MP #### [facility] [address] [address] [address] Graciela Paz PROTIMEon 11-01-2022 INR Coag (PPP) [Relative time] 0.97 {INR} Normal [facility] Comment on above: Performed By: #### P T, PTT ####[facility] [id number] [place] [address]Dr. Graciela Paz INR GUIDELINES SEE BELOW Normal [facility] Comment on above: Result Comment: JONATHON RED INR: 2.0 - 3.0 CONDITIONS NOT LISTED BELOW 2.5 - 3.5 FOR PROSTHETIC HEART VALVE REPLACEMENT 2.5 - 3.5 RECURRENT THROMBOSIS Performed By: #### P T, PTT ####[facility] [id number] [place], [place] [address]Tc. Graciela Paz PT Coag (PPP) [Time] 10.3 s Normal 9.0-11.6 [facility] Comment on above: Performed By: #### P T, PTT ####[facility] [id number] [place], [place] [address]Ax. Graciela Paz PTTon 11-01-2022 aPTT Coag (Bld) [Time] 26.8 s Normal 22.3-36.2 [facility] Comment on above: Performed By: #### P T, PTT ####[facility] [id number] [place] [id number] Graciela Paz CT ABD/PELV WO W CONon 08-28 CT [...] by: KAYCE SANDS Date: 2022-08-28 15:34 Normal [facility] ESTRADIOLon 03-15-2020 ESTRADIOL 20 pg/mL Normal [facility] Comment on above: Result Comment: REF VALUES FOLLICULAR PHASE 20-144 MID CYCLE 64-357 LUTEAL PHASE 56-214 POSTMENOPAUSE < 32 PREPUBERTY < 20 FEMALE 10-18Y 8-110 MALE 10-18Y < 20 ADULT MALE < 40 Performed By: #### E STRA #### [facility] [address] [place] [address] FOLLICLE STIM. HORMONEon FOLLICLE STIM. HORMONE 72.5 IU/L Normal [facility] Comment on above: Result Comment: REF VALUES FOLLICULAR 2-12 MID-CYCLE 12-25 LUTEAL PHASE 2-12 MENOPAUSE 30-150 PREPUBERTY 50% ADULT ADULT MALE 2-10 INFANTS 0-1 Performed By: #### F SH #### [facility] [address] [place] [address] GGTon 03-15-2020 Gamma glutamyl transferase [Catalytic activity/Vol] 26 U/L Normal 5 - 55 [facility] Comment on above: Performed By: #### G GT #### [address] [id number] GLUCOSEon 03-15-2020 Glucose [Mass/Vol] 91 mg/dL Normal 74 - 99 [facility] Comment on above: Performed By: #### G EDGAR #### [address] [id number] HEMOGLOBIN A1Con 03-15-2020 HbA1c (Bld) [Mass fraction] 5.3 % Normal [facility] Comment on above: Result Comment: Diag nosis of Diabetes-Adults Non-Diabetic: < or = 5.6% Increased risk for developing diabetes: 5.7-6.4% Diagnostic of diabetes: > or = 6.5% . Monitoring of Diabetes Age (y) Therapeutic Goal (%) Adults: >18 <7.0 Pediatrics: 13-18 <7.5 7-12 <8.0 0- 6 7.5-8.5 [employer]. Diabetes Care 33(S1), Aug 2009. Performed By: #### H BA1E #### [facility] [address] [place] [address] HbA1c (Bld) [Mass fraction] 105 MG/DL Normal [facility] Comment on above: Performed By: #### H BA1E #### [facility] [address] [place] [address] HEPATIC FUNCTION PANELon Albumin [Mass/Vol] 4.1 g/dL Normal 3.4 - 5.0 [facility] Comment on above: Performed By: #### H EPFP #### [address] [id number] ALP [Catalytic activity/Vol] 113 U/L High 33 - 110 [facility] Comment on above: Performed By: #### H EPFP #### [address] [id number] ALT [Catalytic activity/Vol] 29 U/L Normal 7 - 45 [facility] Comment on above: Result Comment: Amy ents treated with Sulfasalazine may generate falsely decreased results for ALT. Performed By: #### H EPFP #### [address] [id number] AST [Catalytic activity/Vol] 24 U/L Normal 9 - 39 [facility] Comment on above: Performed By: #### H EPFP #### [address] [id number] Bilirubin [Mass/Vol] 0.4 mg/dL Normal 0.0 - 1.2 [facility] Comment on above: Performed By: #### H EPFP #### [address] [id number] Bilirubin.direct [Mass/Vol] 0.1 mg/dL Normal 0.0 - 0.3 [facility] Comment on above: Performed By: #### H EPFP #### [address] [id number] Protein [Mass/Vol] 6.9 g/dL Normal 6.4 - 8.2 [facility] Comment on above: Performed By: #### H EPFP #### [address] [id number] LIPID PANEL (CORONARY RISK 2 )on 03-15-2020 Cholesterol [Mass/Vol] 203 mg/dL High 0 - 199 [facility] Comment on above: Result Comment: . AGE [...] dosing. Performed By: #### L IPID #### [address] [id number] Cholesterol in HDL [Mass/Vol] 32.0 mg/dL Abnormal [facility] Comment on above: Result Comment: . AGE VERY LOW LOW NORMAL HIGH 0-19 Y < 35 < 40 40-45 ---- 20-24 Y ---- < 40 >45 ---- >24 Y ---- < 40 40-60 >60 . Performed By: #### L IPID #### [address] [id number] Cholesterol in LDL [Mass/Vol] 130 mg/dL High 0 - 109 [facility] Comment on above: Result Comment: . NEAR BORD AGE DESIRABLE OPTIMAL HIGH HIGH VERY HIGH 0-19 Y 0 - 109 --- 110-129 >/= 130 ---- 20-24 Y 0 - 119 --- 120-159 >/= 160 ---- >24 Y 0 - 99 100-129 130-159 160-189 >/=190 . Performed By: #### L IPID #### [address] [id number] Cholesterol in VLDL [Mass/Vol] 41 mg/dL High 0 - 40 [facility] Comment on above: Performed By: #### L IPID #### [address] [id number] Cholesterol.total/Cho lesterol in HDL [Mass ratio] 6.3 {ratio} Abnormal [facility] Comment on above: Result Comment: REF VALUES DESIRABLE < 3.4 HIGH RISK > 5.0 Performed By: #### L IPID #### [address] [id number] NON-HDL CHOLESTEROL 171 mg/dL High 0 - 119 [facility] Comment on above: Result Comment: AGE DESIRABLE BORDERLINE HIGH HIGH VERY HIGH 0-19 Y 0 - 119 120 - 144 >/= 145 >/= 160 20-24 Y 0 - 149 150 - 189 >/= 190 ---- >24 Y 30 MG/DL ABOVE LDL CHOLESTEROL GOAL . Performed By: #### L IPID #### [address] [id number] Triglyceride [Mass/Vol] 206 mg/dL High 0 - 149 [facility] Comment on above: Result Comment: . AGE [...] dosing. Performed By: #### L IPID #### [address] [id number] LUTEINIZING HORMONEon 2019 LUTEINIZING HORMONE 29.3 IU/L Normal [facility] Comment on above: Result Comment: REF VALUES FOLLICULAR PHASE 1.9-12.5 MID-CYCLE 8.7-76.3 LUTEAL PHASE 0.5-16.9 POST MENOPAUSE 5.0-55.2 CHILDREN 0- 6.0 ADULT MALE 18-70 1.5- 9.3 ADULT MALE >70 3.1-34.6 Performed By: #### L H #### [facility] [address] [place] [address] THYROXINE,FREEon 03-15-2020 THYROXINE,FREE 0.80 ng/dL Normal 0.61 - 1.12 [facility] Comment on above: Result Comment: Thyr oxine Free testing is performed using different testing methodology at [facility] than at other [facility]. Direct result comparisons should only be [...] draw. Performed By: #### T 4FRE #### [address] [id number] TSHon 03-15-2020 TSH Qn 4.05 m[IU]/L High 0.44 - 3.98 [facility] Comment on above: Result Comment: TSH testing is performed using different testing methodology at [facility] than at other [facility]. Direct result comparisons should only be made within the same method. Performed By: #### T SH2 #### [address] [id number] TTG AB,IGAon 03-15-2020 TTG AB,IGA <1 Normal 0 - 14 [facility] Comment on above: Result Comment: Rachell ac disease is unlikely. False negative Tissue Transglutaminase Antibody, IgA results can occur in approximately 10% of patients with celiac disease, patients already adhering to a gluten-free diet, or patients with IgA deficiency. Performed By: #### H EPFP #### [address] [id number] MRA CHEST W WO CONTRASTon MRA CHEST W WO CONTRAST [facility] Department of Radiology [address] [place] [id number] Patient Name: KEYONA ATKINS : 2000 Sex: F Age: Race: White Pt. 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 Electronically signed by:Radha Orozco. Transcribed by: [email or web address], User Resident: Electronically Signed by: RADHA OROZCO @ 04/23/2019 01:10 PM Normal [facility] Comment on above: Order Comment: , , = ========= , Ordering Provider - DEMAR COOMBS MD , MRA HEAD WO CONTRASTon 04-22 MRA HEAD WO CONTRAST [facility] Department of Radiology [address] [place] [id number] Patient Name: KEYONA ATKINS : 2000 Sex: F Age: Race: White Pt. Location: Patient Status: D Ordered Date: 03/24/2019 3:30:00 PM Completed Date: 04/22/2019 12:59 PM Requesting Provider: DEMAR SCHUSTER Attending Provider: DEMAR SCHUSTER Report Copy To: MARIA DE JESUS CASTRO Signs & Symptoms: I10 Essential (primary) hypertension I10 History: Chunky, No FB per mother Sunday huffman auth # [id number] 03/28/19-04/27/19 [id number] *er Comments: , , , Ordering Provider [...] findings. Electronically signed by:Ayana Cary. Transcribed by: [email or web address], User Resident: BARAK FOREMAN Electronically Signed by: AYANA CARY @ 04/23/2019 06:22 PM I personally read this/these film(s) with this resident Normal [facility] Comment on above: Order Comment: , , = ========= , Ordering Provider - DEMAR COOMBS MD , MRI CARDIAC WITH AND WITHOUT CONTRASTon 04-22-2019 MRI CARDIAC WITH AND WITHOUT CONTRAST [facility] Department of Radiology [address] [place] [address] Patient Name: KEYONA ATKINS : 2000 Sex: F Age: Race: White Pt. 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 Electronically signed by:Radha Orozco. Transcribed by: [email or web address], User Resident: Electronically Signed by: RADHA OROZCO @ 04/23/2019 01:10 PM Normal [facility] Comment on above: Order Comment: , [...] Thomas MD on 10/10/2018 12:02 PM Normal [facility] Estradiol, E2on 09-25-2018 Estradiol, E2 Normal [facility] Comment on above: Result Comment: <10 Unit: [...] year earlier in obese girls and in -Cub[place] girls. Progression through Cyrus stages is variable. Cyrus stage V (adult) should be reached by age 18. ADDITIONAL INFORMATION This test was developed and its performance characteristics determined by [facility] in a manner consistent with CLIA requirements. This test has not been cleared or approved by the U.S. Food and Drug Administration. Performed at [facility] [address], [address], [place] [address] Anti TPO ABon 09-24-2018 Anti TPO AB 2884 IU/mL High <35 [facility] FSHon 09-24-2018 FSH 55.73 mIU/mL Normal [facility] Comment on above: Result Comment: (NOTE) FSH [...] 0.8-7.0 LHon 09-24-2018 LH 13.07 mIU/mL Normal [facility] Comment on above: Result Comment: (NOTE) LH [...] 0.2-5.8 Thyroglobulin Antibodyon Thyroglobulin Antibody 13.3 High [facility] Comment on above: Result Comment: Refe rence range: 0.0 to 4.0 Unit: IU/mL (NOTE) INTERPRETIVE INFORMATION: Thyroglobulin Antibody A value of 4.0 IU/mL or less indicates a negative result for thyroglobulin antibodies. The Thyroglobulin Antibody assay is being performed using the Michael Mandy Access DxI method. Performed by [place] [address] [email or web address], Yobany Srivastava MD, Lab. Director [place] [address] Performed By: #### X THYRG #### [place] [address] Comprehensive Metabolic Pane marlo 09-23-2018 Albumin [Mass/Vol] 4.5 g/dL Normal 3.4-5.2 [facility] ALP [Catalytic activity/Vol] 117 U/L High 54-96 [facility] ALT [Catalytic activity/Vol] 18 U/L Normal <40 [facility] AST [Catalytic activity/Vol] 22 U/L Normal 15-50 [facility] Bilirubin Ql (U) 0.2 mg/dL Normal 0.1-1.[address] [facility] Calcium [Mass/Vol] 10.4 mg/dL Normal 8-10.5 [facility] Chloride [Moles/Vol] 107 mmol/L High 95-106 [facility] CO2 [Moles/Vol] 20 mmol/L Low 24-35 [facility] Creatinine [Mass/Vol] 0.46 mg/dL Low 0.5-0.8 [facility] Comment on above: Result Comment: Note : New reference intervals, effective July 09, 2018. Glucose [Mass/Vol] 122 mg/dL High 60-115 [facility] Potassium [Moles/Vol] 4.0 mmol/L Normal 3.7-5.3 [facility] Protein [Mass/Vol] 7.8 g/dL Normal 6.4-8.4 [facility] Sodium [Moles/Vol] 138 mmol/L Normal 135-145 [facility] Urea nitrogen [Mass/Vol] 12 mg/dL Normal 5-18 [facility] Free T4on 09-23-2018 Free T4 [Mass/Vol] 0.8 ng/dL Normal 0.7-2.1 [facility] Hemoglobin A1Con 09-23-2018 HbA1c (Bld) [Mass fraction] 5.2 % Normal 4.0-5.6 [facility] HbA1c (Bld) [Mass fraction] 103 mg/dL Normal [facility] Comment on above: Result Comment: The eAG is derived from the A1c result using a calculation from the Diabetes Control and Complication trial and reflects the average blood glucose over approximately the past 120 days, but weighted to the past 30 days. Lipid Profileon 09-23-2018 Cholesterol [Mass/Vol] 225 mg/dL High 95-195 [facility] Comment on above: Performed By: #### L IPP #### Performed at [address] [address] Cholesterol in HDL [Mass/Vol] 34 mg/dL Low 40-58 [facility] Comment on above: Performed By: #### L IPP #### Performed at [address] [address] Cholesterol in LDL [Mass/Vol] 113 mg/dL Normal 73-117 [facility] Comment on above: Performed By: #### L IPP #### Performed at [address] [address] Triglyceride [Mass/Vol] 390 mg/dL High 29-200 [facility] Comment on above: Performed By: #### L IPP #### Performed at [address] [address] VLDL Cholesterol 78 mg/dL High 6-[address] [facility] Comment on above: Performed By: #### L IPP #### Performed at [address] [address] Hours Fasting Patient not fasting [facility] Comment on above: Performed By: #### L IPP #### Performed at [address] [address] TSHon 09-23-2018 TSH Qn 6.008 uIU/mL High 0.4-4.0 [facility] Vitamin D 25 Hydroxyon 09-23 Vitamin D 25 Hydroxy 20 ng/mL Low 30-120 [facility] Comment on above: Result Comment: (NOTE) <20 considered deficient. 21-29 considered insufficient. Reference ranges are based on Endocrine Society criteria. CREATININE,SERUMon 8 Creatinine [Mass/Vol] Unable to calculat e GFR due to inappropriate age/gender/creatinin e value. Normal [facility] Comment on above: Performed By: #### C REAT #### Testing performed at [address] [address] Creatinine [Mass/Vol] 0.5 mg/dL Low 0.52-1.04 [facility] Comment on above: Performed By: #### C REAT #### Testing performed at [address] [address] [address] CHEST WITH CONTRASTon CT CHEST WITH [...] absence of the inferior vena cava. Normal [facility] IMPRESSION: 1. There is bovine configuration to [...] inferior vena cava. Invalid Interpretation Code RADIOLOGY [id number],IGAon 2017 TTG- IGA <2 Normal 0-3 [facility] Comment on above: Result Comment: (NOT E) Negative 0 - 3 Weak Positive 4 - 10 Positive >10 Tissue Transglutaminase (tTG) has been identified as the endomysial antigen. Studies have demonstr- ated that endomysial IgA antibodies have over 99% specificity for gluten sensitive enteropathy. PERFORMED AT [facility] Performed By: #### C MPF, TSH2, LIP2, T42, ACBC #### Testing performed at [address] [address] #### LTTG #### Testing performed at [facility] [address] [place] [address] [place] [address] 25 0H VITAMIN D LEVELon 06-13 25 0H VITAMIN D LEVEL 16.5 NG/ML Low >30 [facility] Comment on above: Result Comment: DEFICIENT <20 NG/ML INSUFFICIENT 20-<30 NG/ML SUFFICIENT 30-100 NG/ML POTENTIAL TOXICITY >100 NG/ML Performed By: #### V ITD #### Testing performed at [address] [address] CBCon 06-22-2018 ABSOLUTE BAS 0.0 X10 Normal [facility] Comment on above: Performed By: #### C MPF, TSH2, LIP2, T42, ACBC #### Testing performed at [address] [address] #### LTTG #### Testing performed at [place] [address] [place] [address] ABSOLUTE EOS 0.30 X10 Normal [facility] Comment on above: Performed By: #### C MPF, TSH2, LIP2, T42, ACBC #### Testing performed at [address] [address] #### LTTG #### Testing performed at [place] [address] [place] [address] ABSOLUTE NEUTROPHIL COUNT 3.0 x10 Normal 1.0-7.0 [facility] Comment on above: Performed By: #### C MPF, TSH2, LIP2, T42, ACBC #### Testing performed at [address] [address] #### LTTG #### Testing performed at [address] [place] [address] Basophils/100 WBC (Bld) 0.5 % Normal 0.0-2.0 [facility] Comment on above: Performed By: #### C MPF, TSH2, LIP2, T42, ACBC #### Testing performed at [address] [address] #### LTTG #### Testing performed at [address] [place] [address] DTYPE AUTO DIFF Normal [facility] Comment on above: Performed By: #### C MPF, TSH2, LIP2, T42, ACBC #### Testing performed at [address] [address] #### LTTG #### Testing performed at [address] [place] [address] Eosinophils/100 WBC (Bld) 4.8 % Normal 0.0-11.0 [facility] Comment on above: Performed By: #### C MPF, TSH2, LIP2, T42, ACBC #### Testing performed at [address] [address] #### LTTG #### Testing performed at [place] [address] [place] [address] Lymphocytes (Bld) [#/Vol] 1.50 X10 Normal [facility] Comment on above: Performed By: #### C MPF, TSH2, LIP2, T42, ACBC #### Testing performed at [address] [address] #### LTTG #### Testing performed at [place] [address] [place] [address] Lymphocytes/100 WBC (Bld) 29.0 % Normal 20.0-55.0 [facility] Comment on above: Performed By: #### C MPF, TSH2, LIP2, T42, ACBC #### Testing performed at [address] [address] #### LTTG #### Testing performed at [address] [place] [address] Monocytes (Bld) [#/Vol] 0.5 X10 Normal [facility] Comment on above: Performed By: #### C MPF, TSH2, LIP2, T42, ACBC #### Testing performed at [address] [address] #### LTTG #### Testing performed at [address] [place] [address] Monocytes/100 WBC (Bld) 9.6 % Normal 0.0-10.0 [facility] Comment on above: Performed By: #### C MPF, TSH2, LIP2, T42, ACBC #### Testing performed at [address] [address] #### LTTG #### Testing performed at [address] [place] [address] Neutrophils/100 WBC (Bld) 56.1 % Normal 37.0-75.0 [facility] Comment on above: Performed By: #### C MPF, TSH2, LIP2, T42, ACBC #### Testing performed at [address] [address] #### LTTG #### Testing performed at [address] [place] [address] Erythrocyte distribution width (RBC) [Ratio] 15.2 % High 11.5-14.5 [facility] Comment on above: Performed By: #### C MPF, TSH2, LIP2, T42, ACBC #### Testing performed at [address] [address] #### LTTG #### Testing performed at [address] [place] [address] Hematocrit (Bld) [Volume fraction] 37.0 % Normal 36.0-48.0 [facility] Comment on above: Performed By: #### C MPF, TSH2, LIP2, T42, ACBC #### Testing performed at [address] [address] #### LTTG #### Testing performed at [address] [address] Hemoglobin (Bld) [Mass/Vol] 12.1 g/dL Normal 12.0-16.0 [facility] Comment on above: Performed By: #### C MPF, TSH2, LIP2, T42, ACBC #### Testing performed at [address] [address] #### LTTG #### Testing performed at [address] [address] MCH (RBC) [Entitic mass] 28.1 pg Normal 26.0-35.0 [facility] Comment on above: Performed By: #### C MPF, TSH2, LIP2, T42, ACBC #### Testing performed at [address] [address] #### LTTG #### Testing performed at [address] [address] MCHC (RBC) [Mass/Vol] 32.7 g/dL Normal 27.0-37.0 [facility] Comment on above: Performed By: #### C MPF, TSH2, LIP2, T42, ACBC #### Testing performed at [address] [address] #### LTTG #### Testing performed at [address] [place] [address] MCV (RBC) [Entitic vol] 85.8 fL Normal 80.0-100.0 [facility] Comment on above: Performed By: #### C MPF, TSH2, LIP2, T42, ACBC #### Testing performed at [address] [address] #### LTTG #### Testing performed at [address] [place] [address] Platelet mean volume (Bld) [Entitic vol] 8.2 fL Normal 7.4-11.0 [facility] Comment on above: Performed By: #### C MPF, TSH2, LIP2, T42, ACBC #### Testing performed at [address] [address] #### LTTG #### Testing performed at [address] [place] [address] Platelets (Bld) [#/Vol] 194 /cmm Normal 130.0-400.0 [facility] Comment on above: Performed By: #### C MPF, TSH2, LIP2, T42, ACBC #### Testing performed at [address] [address] #### LTTG #### Testing performed at [address] [place] [address] RBC (Bld) [#/Vol] 4.32 /cmm Normal 4.0-5.4 [facility] Comment on above: Performed By: #### C MPF, TSH2, LIP2, T42, ACBC #### Testing performed at [address] [address] #### LTTG #### Testing performed at [address] [place] [address] [place] [address] WBC (Bld) [#/Vol] 5.3 /cmm Normal 3.6-13.0 [facility] Comment on above: Performed By: #### C MPF, TSH2, LIP2, T42, ACBC #### Testing performed at [address] [address] #### LTTG #### Testing performed at [place] [address] [place] [address] CMP FASTINGon 06-22-2018 Calcium [Mass/Vol] 10.0 mg/dL Normal 8.8-10.7 [facility] Comment on above: Performed By: #### C MPF, TSH2, LIP2, T42, ACBC #### Testing performed at [address] [address] #### LTTG #### Testing performed at [place] [address] [place] [address] Chloride [Moles/Vol] 104 mmol/L Normal 98-107 [facility] Comment on above: Performed By: #### C MPF, TSH2, LIP2, T42, ACBC #### Testing performed at [address] [address] #### LTTG #### Testing performed at [address] [place] [address] CO2 [Moles/Vol] 21 mmol/L Low 22-30 [facility] Comment on above: Performed By: #### C MPF, TSH2, LIP2, T42, ACBC #### Testing performed at [address] [address] #### LTTG #### Testing performed at [address] [place] [address] Glucose [Mass/Vol] 95 mg/dL Normal 70-100 [facility] Comment on above: Result Comment: NORMAL <100 mg/dL PREDIABETES 101-126 mg/dL DIABETES 126 mg/dL or higher Performed By: #### C MPF, TSH2, LIP2, T42, ACBC #### Testing performed at [address] [address] #### LTTG #### Testing performed at [address] [place] [address] Potassium [Moles/Vol] 4.0 mmol/L Normal 3.5-5.1 [facility] Comment on above: Performed By: #### C MPF, TSH2, LIP2, T42, ACBC #### Testing performed at [address] [address] #### LTTG #### Testing performed at [address] [place] [address] Sodium [Moles/Vol] 137 mmol/L Normal 136-145 [facility] Comment on above: Performed By: #### C MPF, TSH2, LIP2, T42, ACBC #### Testing performed at [address] [address] #### LTTG #### Testing performed at [address] [address] A:G RATIO 1.4 RATIO Normal 1.3-2.2 [facility] Comment on above: Performed By: #### C MPF, TSH2, LIP2, T42, ACBC #### Testing performed at [address] [address] #### LTTG #### Testing performed at [address] [address] Albumin [Mass/Vol] 4.3 G/dl Normal 3.5-5.0 [facility] Comment on above: Performed By: #### C MPF, TSH2, LIP2, T42, ACBC #### Testing performed at [address] [address] #### LTTG #### Testing performed at [address] [address] ALP [Catalytic activity/Vol] 149 U/L High 38-126 [facility] Comment on above: Performed By: #### C MPF, TSH2, LIP2, T42, ACBC #### Testing performed at [address] [address] #### LTTG #### Testing performed at [address] [place] [address] ALT [Catalytic activity/Vol] 21 U/L Normal 14-54 [facility] Comment on above: Performed By: #### C MPF, TSH2, LIP2, T42, ACBC #### Testing performed at [address] [address] #### LTTG #### Testing performed at [address] [place] [address] AST [Catalytic activity/Vol] 23 U/L Normal 15-41 [facility] Comment on above: Performed By: #### C MPF, TSH2, LIP2, T42, ACBC #### Testing performed at [address] [address] #### LTTG #### Testing performed at [address] [address] Bilirubin [Mass/Vol] 0.6 mg/dL Normal 0.2-1.9 [facility] Comment on above: Performed By: #### C MPF, TSH2, LIP2, T42, ACBC #### Testing performed at [address] [address] #### LTTG #### Testing performed at [address] [address] Creatinine [Mass/Vol] 0.5 mg/dL Low 0.52-1.04 [facility] Comment on above: Performed By: #### C MPF, TSH2, LIP2, T42, ACBC #### Testing performed at [address] [address] #### LTTG #### Testing performed at [address] [address] GFR/1.73 sq M predicted among non-blacks MDRD (S/P/Bld) [Vol rate/Area] Unable to calculate GFR due to inappropriate age/gender/creatinin e value. Normal [facility] Comment on above: Performed By: #### C MPF, TSH2, LIP2, T42, ACBC #### Testing performed at [address] [address] #### LTTG #### Testing performed at [address] [place] [address] Protein [Mass/Vol] 7.4 g/dL Normal 6.3-8.6 [facility] Comment on above: Performed By: #### C MPF, TSH2, LIP2, T42, ACBC #### Testing performed at [address] [address] #### LTTG #### Testing performed at [address] [place] [address] Urea nitrogen [Mass/Vol] 10 mg/dL Normal 7-20 [facility] Comment on above: Performed By: #### C MPF, TSH2, LIP2, T42, ACBC #### Testing performed at [address] [address] #### LTTG #### Testing performed at [address] [place] [address] FREE T4on 06-22-2018 Free T4 [Mass/Vol] 0.68 ng/dL Low 0.93-1.60 [facility] Comment on above: Performed By: #### C MPF, TSH2, LIP2, T42, ACBC #### Testing performed at [address] [address] #### LTTG #### Testing performed at [address] [place] [address] HEMOGLOBIN A1Con 06-22-2018 HbA1c (Bld) [Mass fraction] 5.2 % Normal <6 [facility] Comment on above: Result Comment: NORMAL <5.7% PREDIABETES 5.7-6.4% DIABETES 6.5% OR HIGHER Performed By: #### H A1CT #### Testing performed at [address] [address] HbA1c (Bld) [Mass fraction] 103 mg/dL Normal [facility] Comment on above: Performed By: #### H A1CT #### Testing performed at [address] [address] LIPID PROFILEon 06-22-2018 Cholesterol [Mass/Vol] 234 mg/dL High 82-199 [facility] Comment on above: Performed By: #### C MPF, TSH2, LIP2, T42, ACBC #### Testing performed at [address] [address] #### LTTG #### Testing performed at [address] [place] [address] Cholesterol in HDL [Mass/Vol] 39 mg/dL Low 40-60 [facility] Comment on above: Performed By: #### C MPF, TSH2, LIP2, T42, ACBC #### Testing performed at [address] [address] #### LTTG #### Testing performed at [address] [place] [address] Cholesterol in LDL [Mass/Vol] 154 mg/dL High 0-100 [facility] Comment on above: Performed By: #### C MPF, TSH2, LIP2, T42, ACBC #### Testing performed at [address] [address] #### LTTG #### Testing performed at [address] [address] Cholesterol in VLDL [Mass/Vol] 41 mg/dL High 5.0-25.0 [facility] Comment on above: Performed By: #### C MPF, TSH2, LIP2, T42, ACBC #### Testing performed at [address] [address] #### LTTG #### Testing performed at [address] [address] Cholesterol.total/Cho lesterol in HDL [Mass ratio] 6.00 {ratio} Normal [facility] Comment on above: Result Comment: RISK TOTAL/HDL RATIO MEN WOMEN 1/2 AVERAGE 3.43 3.27 AVERAGE 4.97 4.44 2X AVERAGE 9.55 7.05 3X AVERAGE 23.99 11.04 Performed By: #### C MPF, TSH2, LIP2, T42, ACBC #### Testing performed at [address] [address] #### LTTG #### Testing performed at [facility] [place] [address] [place] [address] [place] [address] Triglyceride [Mass/Vol] 203 mg/dL High <150 [facility] Comment on above: Performed By: #### C MPF, TSH2, LIP2, T42, ACBC #### Testing performed at [address] [address] #### LTTG #### [facility] [place] [address] [place] [address] [place] [address] TSHon 06-22-2018 TSH Qn 5.424 uIU/ML Normal 0.36-5.80 [facility] Comment on above: Performed By: #### C MPF, TSH2, LIP2, T42, ACBC #### Testing performed at [address] [address] #### LTTG #### [facility] [place] [address] [place] [address] [place] [address] Vital Signs Date Time Vital Sign Value Performing Clinician Facility 01-16-2024 08:55-0400 Blood Pressure Location Arelis Lue [facility] 01-16-2024 08:55-0400 Body temperature 98.6 [degF] Arelis Lue [facility] 01-16-2024 08:55-0400 Diastolic blood pressure 84 mm[Hg] Arelis Lue [facility] 01-16-2024 08:55-0400 Heart rate 67 /min Arelis Lue [facility] 01-16-2024 08:55-0400 Systolic blood pressure 132 mm[Hg] Arelis Lue [facility] 10-02-2023 13:02-0500 Blood Pressure Location MARIA DE JESUS PACO [facility] 10-02-2023 13:02-0500 Diastolic blood pressure 69 mm[Hg] MARIA DE JESUS PACO [facility] 10-02-2023 13:02-0500 Heart rate 80 /min MARIA DE JESUS PACO [facility] 10-02-2023 13:02-0500 Respiratory rate 16 /min MARIA DE JESUS PACO [facility] 10-02-2023 13:02-0500 Systolic blood pressure 121 mm[Hg] MARIA DE JESUS PACO [facility] 03-14-2023 09:07-0400 Blood Pressure Location Arelis Lue [facility] 03-14-2023 09:07-0400 Diastolic blood pressure 87 mm[Hg] Arelis Lue [facility] 03-14-2023 09:07-0400 Heart rate 109 /min Arelis Lue [facility] 03-14-2023 09:07-0400 Respiratory rate 16 /min Arelis Lue [facility] 03-14-2023 09:07-0400 Systolic blood pressure 137 mm[Hg] Arelis Lue [facility] 10-27-2022 09:45-0400 Blood Pressure Location Arelis Lue [facility] 10-27-2022 09:45-0400 Diastolic blood pressure 74 mm[Hg] Arelis Lue [facility] 10-27-2022 09:45-0400 Heart rate 93 /min Arelis Lue [facility] 10-27-2022 09:45-0400 Systolic blood pressure 120 mm[Hg] Arelis Lue [facility] 10-04-2018 08:20-0500 BMI (Body Mass Index) 41.7 kg/m2 [facility] 10-04-2018 08:20-0500 BP Diastolic 78 mm[Hg] [facility] 10-04-2018 08:20-0500 BP Systolic 118 mm[Hg] [facility] 10-04-2018 08:20-0500 Height 148.6 cm [facility] 10-04-2018 08:20-0500 Pulse (Heart Rate) 83 /min [facility] 10-04-2018 08:20-0500 Pulse Oximetry 97 % [facility] 10-04-2018 08:20-0500 Respiratory Rate 16 /min [facility] 10-04-2018 08:20-0500 Weight 92.08 kg [facility] 09-05-2018 09:01-0500 BMI (Body Mass Index) 41.29 kg/m2 [facility] Work Phone: 09-05-2018 09:01-0500 Body Temperature 98.01 [degF] [facility] Work Phone: 09-05-2018 09:01-0500 BP Diastolic 78 mm[Hg] [facility] Work Phone: 09-05-2018 09:01-0500 BP Systolic 122 mm[Hg] [facility] Work Phone: 09-05-2018 09:01-0500 Height 148.6 cm [facility] Work Phone: 09-05-2018 09:01-0500 Pulse (Heart Rate) 96 /min [facility] Work Phone: 09-05-2018 09:01-0500 Pulse Oximetry 98 % [facility] Work Phone: 09-05-2018 09:01-0500 Respiratory Rate 16 /min [facility] Work Phone: 09-05-2018 09:01-0500 Weight 91.17 kg [facility] Work Phone: 07-12-2018 08:26-0500 BMI (Body Mass Index) 42.13 kg/m2 [facility] Work Phone: 07-12-2018 08:26-0500 BP Diastolic 82 mm[Hg] [facility] Work Phone: 07-12-2018 08:26-0500 BP Systolic 126 mm[Hg] [facility] Work Phone: 07-12-2018 08:26-0500 Height 147.3 cm [facility] Work Phone: 07-12-2018 08:26-0500 Pulse (Heart Rate) 125 /min [facility] Work Phone: 07-12-2018 08:26-0500 Pulse Oximetry 97 % [facility] Work Phone: 07-12-2018 08:26-0500 Respiratory Rate 16 /min Hernesto Haque [facility] Work Phone: 07-12-2018 08:26-0500 Weight 91.44 kg Hernesto Haque [facility] Work Phone: Encounters Encounter Date Encounter Type Care Provider Facility Start: 10-07-2024 ambulatory MARIA DE JESUS ANTONIO Facili ty:[facility] Start: 07-23-2024 ambulatory Arelis Yip Facility:[facility] Start: 01-23-2024 End: 01-24-2024 Pre-admission assessment Arelis Yip [facility] Start: 01-16-2024 End: 01-16-2024 ambulatory Arelis Yip Facility:[facility] Start: 01-16-2024 End: 01-16-2024 Patient encounter [facility] Start: 12-12-2023 End: 12-12-2023 ambulatory BARAK MABRY Facility:[facility] Start: 10-02-2023 End: 10-02-2023 ambulatory MARIA DE JESUS ANTONIO Facility[facility] Start: 10-02-2023 End: 10-02-2023 Lab Drop off MARIA DE JESUS CLINERY [facility] Start: 10-02-2023 End: 10-02-2023 ambulatory MARIA DE JESUS E PACO Facility:[facility] Start: 10-02-2023 End: 10-02-2023 Patient encounter procedure [facility] Start: 09-19-2023 End: 09-19-2023 ambulatory Arelis Yip Facility:[facility] [place] Start: 09-19-2023 End: 09-19-2023 Patient encounter procedure Arelis Yip [facility] Start: 07-03-2023 End: 07-04-2023 ambulatory CALITomi Ty TEJADAMATTHIEU Facility:[facility] Start: 03-14-2023 End: 03-14-2023 ambulatory Arelis Caroline Yip Facility:[facility] Start: 03-14-2023 End: 03-14-2023 Patient encounter procedure Arelis Yip [facility] Start: 11-13-2022 End: 11-13-[address] LIZ Avery Facility: Start: 11-13-2022 End: 11-13-2022 Patient encounter procedure Arelis Velazquez Edgarchris [facility] Start: 11-08-2022 End: 11-08-[address] ILIA COBB Facility:[facility] Start: 11-04-2022 Encounter for preprocedural cardiovascular examination ARELIS Preston EDGARChris . [facility] Start: 11-04-2022 Encounter for preprocedural laboratory examination ARELIS YIP . [facility] Start: 11-01-2022 End: 11-02-[address] ILIA COBB Facility:[facility] Start: 11-01-2022 End: 11-02-2022 Encounter for preprocedural cardiovascular examination DR ILIA COBB Facility:[facility] Start: 10-27-2022 End: 10-27-2022 Patient encounter procedure Arelis Velazquez Edgarchris [facility] Start: 08-26-2022 End: 08-27-[address] ILIA COBB Facility:[facility] Start: 11-29-2018 End: 11-29-2018 Refjonas Monson Work Phone: [facility] Start: 10-04-2018 End: 10-04-2018 Letter encounter Hernesto Haque Work Phone: [facility] Start: 10-04-2018 End: 10-04-2018 Office outpatient visit 25 minutes Hernesto Haque Work Phone: [facility] Comment on above: 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); Aortic arch anomaly; Chronic pulmonary hypertension; Essential hypertension, benign; Inappropriate sinus tachycardia; Mixed hyperlipidemia; Lymphedema; Obstructive sleep apnea Start: 09-12-2018 End: 09-12-2018 Patient encounter procedure LASHAECAROLE TREVINO [facility] Start: 09-12-2018 End: 09-12-2018 Office outpatient visit 15 minutes Lashae Hastings Work Phone: [facility] Comment on above: Excessive cerumen in left ear canal (Primary Dx); Abrasion of nose, initial encounter Start: 09-05-2018 End: 09-05-2018 Telephone encounter Ilia Monson Work Phone: [facility] Comment on above: Referral Start: 09-05-2018 Patient encounter procedure ILIA MONSON [facility] Start: 09-05-2018 End: 09-05-2018 Office outpatient visit 15 minutes Ilia Monson Work Phone: [facility] Comment on above: Umanzor's syndrome (P rimary Dx); Abnormal thyroid blood test; Mixed hyperlipidemia; Vitamin D deficiency Start: 08-30-2018 End: 08-30-2018 Letter encounter Hernesto Haque Work Phone: [facility] Start: 08-08-2018 End: 08-08-2018 Patient encounter procedure Hernesto Haque Work Phone: [facility] Comment on above: Arrived Start: 07-25-2018 End: 07-25-2018 Patient encounter procedure Hernesto Haque Work Phone: [facility] Comment on above: Pre-operative cardio vascular examination (Primary Dx) Start: 07-24-2018 End: 07-24-2018 Patient encounter procedure LASHAECAROLE TREVINO [facility] Start: 07-12-2018 End: 07-12-2018 Patient encounter procedure García Josephnski Work Phone: [facility] Start: 07-12-2018 End: 07-12-2018 Office outpatient new 60 minutes Hernesto Haque Work Phone: [facility] Comment on above: Umanzor's syndrome (P rimary Dx); Abnormality of aortic arch branch; Tachycardia, unspecified; Morbid obesity; Mixed hyperlipidemia; Obstructive sleep apnea; Lymphedema of right lower extremity Start: 06-28-2018 End: 06-28-2018 Patient encounter procedure Addi Peterson [facility] Comment on above: Other Start: 06-26-2018 End: 06-26-2018 Patient encounter procedure Addi Barrowiak [facility] Comment on above: Results Start: 06-20-2018 End: 06-20-2018 Patient encounter procedure LASHAE TREVINO [facility] Start: 06-06-2018 Patient encounter procedure [facility] Procedures Date Procedure Procedure Detail Performing Clinician [...] Detail Author Start: 06-22-2019 Thyrotropin Qn TSH [facility] Start: 04-13-2019 Influenza vaccination INFLUENZ A VACCINE (Season Ended) [facility] Start: 03-07-2019 End: 03-07-2019 Office Visit 03/07/2019 Office Visit Cardiovascular Medicine Hernesto Haque II, MD [address] [place] [address] [phone] [facility] Start: 03-05-2019 End: 03-05-2019 Ambulatory 03/05/2019 Office Visit Family Medicine Ilia Monson PA [address] [place] [address] [phone] [facility] Start: 12-11-2018 End: 12-11-2018 Office Visit 12/11/2018 Office Visit Otolaryngology Thao Torres MD [address] [place] [address] [address] [phone] [facility] Start: 10-04-2018 End: 10-04-2018 Ambulatory 10/04/2018 Office Visit Cardiovascular Medicine Hernesto Haque II, MD [address] [place] [address] [phone] [facility] Start: 09-28-2018 End: 06-28-2019 LIPID PANEL W CALCULATED LDL LIPID PANEL W CALCULATED LDL Routine Mixed hyperlipidemia Expected: 09/28/2018, Expires: 06/28/2019 [facility] Work Phone: Comment on above: Expected: 09/28/2018 , Expires: 06/28/2019 Start: 09-28-2018 End: 06-28-2019 VITAMIN D (25-HYDROXY,TOTAL) VITAMIN D (25-HYDROXY,TOTAL) Routine Vitamin D deficiency Expected: 09/28/2018, Expires: 06/28/2019 [facility] Work Phone: Comment on above: Expected: 09/28/2018 , Expires: 06/28/2019 Start: 09-05-2018 End: 09-05-2018 Ambulatory [facility] Start: 08-30-2018 End: 08-30-2018 Ambulatory 08/30/2018 Office Visit Cardiovascular Medicine Hernesto Haque II, MD [address] [place] [address] [phone] [facility] Start: 07-25-2018 End: 07-25-2019 CREATININE SERUM CREATININE SERUM Routine Pre-operative cardiovascular examination Expected: 07/25/2018, Expires: 07/25/2019 [facility] Work Phone: Comment on above: Expected: 07/25/2018 , Expires: 07/25/2019 Start: 07-15-2018 End: 06-28-2019 TSH W/FT4 REFLEX TSH W/FT4 REFLEX Routine Abnormal thyroid blood test Expected: 07/15/2018, Expires: 06/28/2019 [facility] Work Phone: Comment on above: Expected: 07/15/2018 , Expires: 06/28/2019 Start: 07-12-2018 End: 07-12-2019 CT of thorax with contrast CT CHEST WITH CONTRAST Routine Umanzro's syndrome Abnormality of aortic arch branch Expected: 07/12/2018, Expires: 07/12/2019 [facility] Work Phone: Comment on above: Expected: 07/12/2018 , Expires: 07/12/2019 Start: 07-12-2018 End: 07-12-2018 Ambulatory 07/12/2018 Office Visit Cardiovascular Medicine Hernesto Haque II, MD [address] [place] [address] [phone] [facility] Start: 04-13-2018 Influenza vaccination INFLUENZA VACC INE (#1) [facility] Work Phone: Start: 04-13-2018 Influenza vaccinatio n given SEQUENTIAL INFLUENZA VACCINE (#1) [facility] Start: 2017 Meningococcal conjug ate vaccination [facility] Work Phone: Start: 2016 Vaccination for mingo n papillomavirus [facility] Start: 2014 HIV screening HIV SCREENING DISCUSSION [facility] Work Phone: Start: 2014 Varicella vaccination [facility] Work Phone: Start: 2012 Vaccination for mingo n papillomavirus HPV VACCINE ADOL (1 - Female 3-dose series) [facility] Work Phone: Start: 2008 DTAP/TDAP/TD VACCINE (1 - Tdap) DTAP/TDAP/TD VACCINE (1 - Tdap) [facility] Work Phone: Start: 2008 Tetanus, diphtheria and acellular pertussis vaccination DTAP VACCINES (1 - Tdap) [facility] Start: 2002 Hepatitis A immunization [facility] Work Phone: Start: 2002 Fqvoejy-pqpjp-ggoviw a vaccination [facility] Work Phone: Start: 2001 Inactivated poliovir us vaccine (product) [facility] Work Phone: Start: 2001 Hepatitis B vaccination [facility] Work Phone: Start: 2001 Tetanus vaccination TETANUS EVERY 10 YR [facility] Ambulatory ECG GA ECG (OFFICE R EAD ONLY) Routine 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 Ordered: 07/12/2018 [facility] Work Phone: Comment on above: Ordered: 07/12/2018 Transthoracic echocardiography ECHOCARDIOGRAM Routine 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 Ordered: 07/12/2018 [facility] Work Phone: Comment on above: Ordered: 07/12/2018 Immunizations Immunization Date Immunization Notes Care Provider Fa cility 04-01-2021 SARS-CoV-2 (COVID-19 ) mRNA BNT-162b2 vax Arelis Yip [facility] 03-11-2021 SARS-CoV-2 (COVID-19 ) mRNA BNT-162b2 vax Arelis Lue [facility] 11-07-2019 HPV, unspecified formulation Arelis Lue [facility] 07-09-2019 HPV, unspecified formulation Arelis Lue [facility] 05-06-2019 HPV, unspecified formulation Arelis Lue [facility] 04-29-2019 hepatitis A vaccine, unspecified formulation Arelis Lue [facility] 04-29-2019 meningococcal ACWY vaccine, unspecified formulation Arelis Lue [facility] 04-10-2019 influenza virus vacc ine, unspecified formulation Arelis Lue [facility] 09-05-2013 hepatitis A vaccine, unspecified formulation Arelis Lue [facility] 09-05-2013 meningococcal ACWY vaccine, unspecified formulation Arelis Lue [facility] 09-05-2013 tetanus toxoid, redu oj diphtheria toxoid, and acellular pertussis vaccine, adsorbed Arelis Lue [facility] 03-22-2006 diphtheria, tetanus toxoids and acellular pertussis vaccine Arelis Lue [facility] 03-22-2006 measles, mumps and rubella virus vaccine Arelis Lue [facility] 03-22-2006 poliovirus vaccine, unspecified formulation Arelis Lue [facility] 07-20-2004 influenza, whole Arelis Lue [facility] 06-29-2003 influenza virus vacc ine, unspecified formulation Arelis Lue [facility] 05-28-2003 diphtheria, tetanus toxoids and acellular pertussis vaccine Arelis Lue [facility] 05-28-2003 measles, mumps and rubella virus vaccine Arelis Lue [facility] 02-10-2002 DTaP, unspecified formulation Arelis Lue [facility] 02-10-2002 Hib, unspecified formulation Arelis Lue [facility] 02-10-2002 poliovirus vaccine, unspecified formulation Arelis Lue [facility] 2001 DTaP, unspecified formulation Arelis Lue [facility] 2001 poliovirus vaccine, unspecified formulation Arelis Lue [facility] 2001 DTaP, unspecified formulation Arelis Lue [facility] 2001 poliovirus vaccine, unspecified formulation Arelis Lue [facility] Payers Date Payer Category Payer Unknown xxxxxxxxxxxx [id number]. [id number] 2001 Unknown [id number] 2.16.84 [id number] 2001 Unknown [id number] 2.16.84 [id number] 2001 Unknown [id number] 2.16.84 [id number] 2001 Unknown [id number] 2.16.84 [id number] 2001 Unknown [id number] 2.16.8 [id number] 2001 Unknown [id number] 2.16.8 40.1.529051.3.579.2.718 2001 Unknown [id number] 2.16.8 [id number] 2001 Unknown [id number] 2.16.8 40.1.459992.3.579.2.727 2001 Unknown [id number] 2.16.8 40.1.834043.3.579.2.727 2001 Unknown [id number] 2.16.8 40.1.003142.3.579.2.727 2001 Unknown [id number] 2.16.8 40.1.283245.3.579.2.727 2001 Unknown [id number] 2.16.8 40.1.711598.3.579.2.727 2001 Unknown [id number] 2.16.8 40.1.476648.3.579.2.727 1974 Unknown [id number] 2.16.8 40.1.389057.3.579.2.903 1974 Unknown [id number] 2.16.8 [id number] 1974 Unknown [id number] 2.16.8 [id number] 1959 Unknown [id number] Social History Date Type Detail Facility Start: 07-12-2018 End: 01-16-2024 Tobacco smoking status NHIS Never smoker [facility] Sex Assigned At Not on file [facility] Work Phone: Tobacco smoking status Never [facility] Sex Assigned At Female [facility] Functional Status Date Assessment Result Facility 01-16-2024 Functional Status N/A [facility] 10-02-2023 Functional Status N/A [facility] 03-14-2023 Functional Status N/A [facility] 10-27-2022 Functional Status N/A [facility] Clinical Notes 10-27-2022 to 01-16-2024 Note Date & Type Note Facility 01-16-2024 Hospital Discharg e instructions Patient Education 01/16/2024 10:15:19 Kegel Exercises Kegel Exercises Kegel exercises can help strengthen your pelvic floor muscles. The pelvic floor is a group of muscles that support your rectum, small intestine, and bladder. In females, pelvic floor muscles also help support the uterus. These muscles help you control the flow of urine and stool (feces). Kegel exercises are painless and simple. They do not require any equipment. Your provider may suggest Kegel exercises to: Improve bladder and bowel control. Improve sexual response. Improve weak pelvic floor muscles after surgery to remove the uterus (hysterectomy) or after , in females. Improve weak pelvic floor muscles after prostate gland removal or surgery, in males. Kegel exercises involve squeezing your pelvic floor muscles. These are the same muscles you squeeze when you try to stop the flow of urine or keep from passing gas. The exercises can be done while sitting, standing, or lying down, but it is best to vary your position. Ask your health care provider which exercises are safe for you. Do exercises exactly as told by your health care provider and adjust them as directed. Do not begin these exercises until told by your health care provider. Exercises How to do Kegel exercises: 1.Squeeze your pelvic floor muscles tight. You should feel a tight lift in your rectal area. If you are a female, you should also feel a tightness in your vaginal area. Keep your stomach, buttocks, and legs relaxed. 2.Hold the muscles tight for up to 10 seconds. 3.Breathe normally. 4.Relax your muscles for up to 10 seconds. 5.Repeat as told by your health care provider. Repeat this exercise daily as told by your health care provider. Continue to do this exercise for at least 4 6 weeks, or for as long as told by your health care provider. You may be referred to a physical therapist who can help you learn more about how to do Kegel exercises. Depending on your condition, your health care provider may recommend: Varying how long you squeeze your muscles. Doing several sets of exercises every day. Doing exercises for several weeks. Making Kegel exercises a part of your regular exercise routine. This information is not intended to replace advice given to you by your health care provider. Make sure you discuss any questions you have with your health care provider. Document Revised: 12/08/2021 Document Reviewed: 12/08/2021 140 Proof Patient Education 2022 [employer] Follow Up Care 01/14/2024 11:04:14 With:Phi MTZ, PASQUALE Romo, URO Address: [address] [place] [phone] When: Unknown [facility] 10-02-2023 Hospital Discharg e instructions Patient Education 10/02/2023 14:03:01 Kidney Stones, Kvmz-av-Jbzi Kidney Stones Kidney stones are rock-like masses that form inside of the kidneys. Kidneys are organs that make pee (urine). A kidney stone may move into other parts of the urinary tract, including: The tubes that connect the kidneys to the bladder (ureters). The bladder. The tube that carries urine out of the body (urethra). Kidney stones can cause very bad pain and can block the flow of pee. The stone usually leaves your body (passes) through your pee. You may need to have a doctor take out the stone. What are the causes? Kidney stones may be caused by: A condition in which certain glands make too much parathyroid hormone (primary hyperparathyroidism). A buildup of a type of crystals in the bladder made of a chemical called uric acid. The body makes uric acid when you eat certain foods. Narrowing (stricture) of one or both of the ureters. A kidney blockage that you were born with. Past surgery on the kidney or the ureters, such as gastric bypass surgery. What increases the risk? You are more likely to develop this condition if: You have had a kidney stone in the past. You have a family history of kidney stones. You do not drink enough water. You eat a diet that is high in protein, salt (sodium), or sugar. You are overweight or very overweight (obese). What are the signs or symptoms? Symptoms of a kidney stone may include: Pain in the side of the belly, right below the ribs (flank pain). Pain usually spreads (radiates) to the groin. Needing to pee often or right away (urgently). Pain when going pee (urinating). Blood in your pee (hematuria). Feeling like you may vomit (nauseous). Vomiting. Fever and chills. How is this treated? Treatment depends on the size, location, and makeup of the kidney stones. The stones will often pass out of the body through peeing. You may need to: Drink more fluid to help pass the stone. In some cases, you may be given fluids through an IV tube put into one of your veins at the hospital. Take medicine for pain. Make changes in your diet to help keep kidney stones from coming back. Sometimes, medical procedures are needed to remove a kidney stone. This may involve: A procedure to break up kidney stones using a beam of light (laser) or shock waves. Surgery to remove the kidney stones. Follow these instructions at home: Medicines Take zmmy-rld-lbvdoyd and prescription medicines only as told by your doctor. Ask your doctor if the medicine prescribed to you requires you to avoid driving or using heavy machinery. Eating and drinking Drink enough fluid to keep your pee pale yellow. You may be told to drink at least 8 10 glasses of water each day. This will help you pass the stone. If told by your doctor, change your diet. This may include: ?Limiting how much salt you eat. ?Eating more fruits and vegetables. ?Limiting how much meat, poultry, fish, and eggs you eat. Follow instructions from your doctor about eating or drinking restrictions. General instructions Collect pee samples as told by your doctor. You may need to collect a pee sample: ?24 hours after a stone comes out. ?8 12 weeks after a stone comes out, and every 6 12 months after that. Strain your pee every time you pee (urinate), for as long as told. Use the strainer that your doctor recommends. Do not throw out the stone. Keep it so that it can be tested by your doctor. Keep all follow-up visits as told by your doctor. This is important. You may need follow-up tests. How is this prevented? To prevent another kidney stone: Drink enough fluid to keep your pee pale yellow. This is the best way to prevent kidney stones. Eat healthy foods. Avoid certain foods as told by your doctor. You may be told to eat less protein. Stay at a healthy weight. Where to find more information National Kidney Foundation (NKF): www.kidney.org [facility] (UCF): www.urologyhealth.org Contact a doctor if: You have pain that gets worse or does not get better with medicine. Get help right away if: You have a fever or chills. You get very bad pain. You get new pain in your belly (abdomen). You pass out (faint). You cannot pee. Summary Kidney stones are rock-like masses that form inside of the kidneys. Kidney stones can cause very bad pain and can block the flow of pee. The stones will often pass out of the body through peeing. Drink enough fluid to keep your pee pale yellow. This information is not intended to replace advice given to you by your health care provider. Make sure you discuss any questions you have with your health care provider. Document Revised: 04/03/2022 Document Reviewed: 04/03/2022 [employer] Patient Education 2022 [employer] Follow Up Care 09/19/2023 09:59:17 With:MARIA DE JESUS ANTONIO PA-C, URL Address: When:1 year [facility] 03-14-2023 Hospital Discharg e instructions Patient Education [...] include: ?8 oz (237 mL) of milk, fwjtntr-usywhhygbzjj-wcryz milk, and calcium-fortifiedfruit juice. Calcium-fortified means that [...] ?Spinach (cooked), rhubarb, beets, sweet potatoes, and Kosovan chard. ?Peanuts. ?Potato chips, taiwanese fries, and baked potatoes with skin on. ?Nuts and nut products. ?Chocolate. If you regularly take a diuretic medicine, make sure to eat at least 1 or 2 servings of fruits or vegetables that are high in potassium each day. These include: ?Avocado. ?Banana. ?Mayes, prune, carrot, or tomato juice. ?Baked potato. [...] magnesium, fish oil, or vitamin B6. Take mzre-nkt-yuphwnt and prescription medicines only as told by [...] Casseroles. Pizza. Lasagna. Frozen meals. Potato chips. Greenlandic fries. The items listed above may not [...] provider. Document Revised: 04/10/2022 Document Reviewed: 04/10/2022 140 Proof Patient Education 2022 [employer] Follow Up Care 11/13/2022 09:26:52 With:Arelis Yip MD, URL, URO Address: When:Within 6 Month(s) Comments:w/ KUB and RASHEEDA and 24 hr urine [facility] 03-14-2023 Hospital Discharg e instructions Follow Up Care 03/14/2023 09:44:41 With:Arelis Yip MD, PASQUALE, URO Address: [address] [place] [address] [phone] When: Unknown [facility] 11-13-2022 Hospital Discharg e instructions Patient Education [...] include: ?Spinach. ?Rhubarb. ?Beets. ?Potato chips and taiwanese fries. ?Nuts. If you regularly take a diuretic medicine, make sure to eat at least 1 2 fruits or vegetables high in potassium each day. These include: ?Avocado. ?Banana. ?Mayes, prune, carrot, or tomato juice. ?Baked potato. [...] Casseroles. Pizza. Lasagna. Frozen meals. Potato chips. Greenlandic fries. Summary You can reduce your risk [...] 11/24/2011 Document Revised: 11/19/2019 Document Reviewed: 07/10/2017 [employer] Patient Education 2019 [employer] 11/13/2022 09:24:55 EU - Cystoscopy with Stent [...] Up Care 11/10/2022 09:26:19 With:Arelis Yip Address: [address], [place] [address] [phone] Business (1) [address] [place], [place] [address]charles [address], [address] [address] [phone] Business (1) When: Unknown Comments:Office to schedule follow up in 6-8 wks with renal US, KUB and 24 hr urine stone workup, labs [facility] 11-01-2022 Note EXAMINATION: XR CHES T 2 [...] authenticated by: DARIEL CHRISTINE Date: 2022-11-01 09:20 [facility] 10-27-2022 Hospital Discharg e instructions Patient Education [...] include: ?Spinach. ?Rhubarb. ?Beets. ?Potato chips and taiwanese fries. ?Nuts. If you regularly take a diuretic medicine, make sure to eat at least 1 2 fruits or vegetables high in potassium each day. These include: ?Avocado. ?Banana. ?Mayes, prune, carrot, or tomato juice. ?Baked potato. [...] Casseroles. Pizza. Lasagna. Frozen meals. Potato chips. Greenlandic fries. Summary You can reduce your risk [...] 11/24/2011 Document Revised: 11/19/2019 Document Reviewed: 07/10/2017 140 Proof Patient Education 2020 [employer] Follow Up Care 09/07/2022 10:54:19 With:Arelis Yip MD, URL, URO Address: When: Unknown [facility] Evaluation + Plan note No data available for this section [facility] Evaluation + Plan note Future Appointments Appointment Date:01/17/2023 08:45:00 AM Scheduled Provider:Arelis Yip MD Location:[facility] Appointment Type:URO Office Visit [facility] Evaluation + Plan note Future Appointments Appointment Date:09/19/2023 08:45:00 AM Scheduled Provider:Arelis Yip MD Location:[facility] Appointment Type:URO Office Visit Diagnostic Tests PendingUric Acid 03/14/23PTH Intact 03/14/23 [facility] Evaluation + Plan note Future Appointments Appointment Date:10/02/2023 12:40:00 PM Scheduled Provider:MARIA DE JESUS ANTONIO PA-C Location:[facility] Appointment Type:URO Office Visit [facility] Evaluation + Plan note Future Appointments Appointment Date:10/07/2024 09:00:00 AM Scheduled Provider:MARIA DE JESUS ANTONIO PA-C Location:[facility] Appointment Type:URO Office Visit [facility] Evaluation + Plan note Future Appointments Appointment Date:10/07/2024 09:00:00 AM Scheduled Provider:MARIA DE JESUS ANTONIO PA-C Location:[facility] Appointment Type:URO Office Visit Diagnostic Tests PendingUrine Culture 10/02/23 [facility] Evaluation + Plan note Future Appointments Appointment Date:01/23/2024 10:00:00 AM Scheduled Provider: Location:.[place] Appointment Type:PT Pelvic Floor/UI Eval () Appointment Date:07/23/2024 08:45:00 AM Scheduled Provider:Arelis Yip MD Location:[facility] Appointment Type:URO Office Visit [facility] Evaluation + Plan note Future Appointments Appointment Date:07/23/2024 08:45:00 AM Scheduled Provider:Arelis Yip MD Location:[facility] Appointment Type:URO Office Visit [facility] Hospital Discharge instructions No data available for this section [facility] Progress note No data available for this section [facility] Reason for Referral Status Reason Specialty Diagnoses / Procedures Referred By Contact Referred To Contact New 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 Procedures CT CHEST WITH CONTRAST GA CAT SCAN OF CHEST CONTRAST Hernesto Haque II, MD [address] [place] [address] Status Reason Specialty Diagnoses / Procedures Referred By Contact Referred To Contact New 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 Tuberculosis: no 37. Vasculitis: no 38. PHONE TECHNICIAN/OB: no 40. Obesity: yes 41. Sleep apnea: [...] 24. Fevers/chills:no 24. Cough:yes in this encounter* Zoe Brooks - 07/25/2018 11:36 AM EST Pt in [...] as yet. Her mother reports that her portrait photographer wants toput her on hormone replacement therapy. [...] potentially adverse cardiovascular effects, however he patient's portrait photographer deems this to be necessary at this time. She will need to be watched closely. She is to return fora follow-up visit in 5 months. * Zoe Brooks - 10/04/2018 8:20 AM EST Chief Complaint [...] Fevers/chills no documented in this encounter* Lashae Hastings CNP - 09/14/2018 6:34 PM EST [facility] [...] failed tympanoplasty approximately 2 years ago in [place]. Patient currently takes Claritin and Singulair for [...] History Records FoundNo Family History Records Found No data available for this section No data available for this section No data available for this section No Family History Records Found No data available for this section No Family History Records Found No data available for this section Advance Directives No Advanced Directives Records FoundNo [...] arch anomaly Ilia Monson PA [address] [place] [address] García Rojas DO [address] [place] [address] Reason Comments Results Reason Comments Other Status Reason Specialty Diagnoses / Procedures Referre d By Contact Referred To Contact 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 Procedures ECHOCARDIOGRAM Hernesto Haque II, MD [address] [place] [address] Status Reason Specialty Diagnoses / Procedures Referre d By Contact Referred To Contact 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 Procedures CT CHEST WITH CONTRAST GA CAT SCAN OF CHEST CONTRAST Herensto Haque II, MD [address] [place] [address] Reason Comments Follow-up Reason Comments Referral Reason Comments Follow-up 1 month follow-up Tu rner Syndrome, FE Reason Comments Medication Refill INFORMATION SOURCE (unrecogn ized section and content) DATE CREATED AUTHOR 09/14/2018 [facility] DATE CREATED AUTHOR AUTHOR'S ORGANIZ ATION 04/28/2019 [facility] DATE CREATED AUTHOR AUTHOR'S ORGANIZ ATION 05/25/2019 [facility] DATE CREATED AUTHOR AUTHOR'S ORGANIZ ATION 05/25/2019 [facility] DATE CREATED AUTHOR AUTHOR'S ORGANIZ ATION 08/15/2019 [facility] DATE CREATED AUTHOR AUTHOR'S ORGANIZ ATION 04/08/2020 [facility] DATE CREATED AUTHOR AUTHOR'S ORGANIZ ATION 11/18/2022 [facility] DATE CREATED AUTHOR AUTHOR'S ORGANIZ ATION 12/20/2023 [facility] DATE CREATED AUTHOR AUTHOR'S ORGANIZ ATION 01/21/[address] [facility] Patient Care team informatio n (unrecognized section and content) Personnel Name: Ilia Cobb DO Address: Address: [address] [place] [address] Personnel Name: Ilia Cobb DO Address: Address: [address] [place], [place] [id number]- Personnel Name: Ilia Cobb DO Address: Address: [address] [place], [place] [address] Personnel Name: ILIA COBB DO Address: Address: [address] [place] [address] Personnel Name: MIKAELA MARCH CNP Address: Address: [address] [place] [address] Personnel Name: MIKAELA MARCH CNP Address: Address: [address] [place] [address] Personnel Name: NONE, XXXX Address: Address: [facility] Personnel Name: NONE, XXXX Address: Address: [facility] FOR RECORDS PERTAINING TO PATIENTS WHO ARE [...] BE BASED ON THE PRIMARY CLINICAL RECORDS. [facility] [employer] [facility]. provides no warranty or guarantee of the accuracy or completeness of information in this document.
--- NOTE | 2024-03-13 03:46 | ED_ITS ---
HPI - Skin/Abscess/Foreign Bdy General Chief complaint: Skin/Abscess/Foreign Body Stated complaint: LEG PAIN Time Seen by Provider: 03/13/24 03:29 Source: patient Mode of arrival: walk-in Limitations: no limitations History of Present Illness HPI narrative: 23-year-old female presents for an area of redness and tenderness on her right inner upper thigh. She has had it for the last day and she was nauseous and she threw up about 1 AM. No fever. She does not recall any injury or being bitten by anything. Related Data Previous Rx's ?Medication ?Instructions ?Recorded cephalexin 500 mg capsule 500 mg PO QID 10 days #40 caps 03/13/24 ondansetron 4 mg disintegrating 4 mg PO Q6H PRN nausea and 03/13/24 tablet vomiting #20 tabs sulfamethoxazole 800 1 tab PO BID 10 days #20 tabs 03/13/24 mg-trimethoprim 160 mg tablet (Bactrim DS) Allergies Allergy/AdvReac Type Severity Reaction Status Date / Time No Known Drug Allergies Allergy Verified 03/13/24 03:38 Review of Systems ROS Narrative A ten point review of systems is negative except as noted above. PFSH PFSH Social History Smoking status: Never smoker Exam Narrative Exam Narrative: Nurses note and vital signs reviewed and patient is not hypoxic. General: The patient appears well and in no apparent distress. Patient is resting comfortably on cart. Skin: Warm, dry, no pallor noted. There is an area of erythema on the right inner upper thigh which is approximately 3 inches x 2 inches. Towards the center is a slightly indurated area but there is no fluctuance or open area or drainage. There is no abscess present. Head: Normocephalic, atraumatic Eye: Normal conjunctiva, no drainage Ears, Nose, Mouth, and Throat: oral mucosa is moist. Nares patent. Cardiovascular: Regular Rate and Rhythm Respiratory: Patient is in no distress, no accessory muscle use, lungs are clear to auscultation, no wheezing, rales or rhonchi GI: Soft and nontender Musculoskeletal: The patient has no evidence of calf tenderness, no pitting edema, symmetrical pulses noted bilaterally Neurological: A&O, normal speech Psychiatric: Cooperative Constitutional Vital Signs, click to edit/add: Last Vital Signs Temp 98.7 F 08/01/24 03:30 Pulse 125 H 03/13/24 03:30 Resp 20 03/13/24 03:30 BP 160/94 H 03/13/24 03:30 Pulse Ox 98 03/13/24 03:30 O2 Del Method Room Air 03/13/24 03:30 Course Vital Signs Vital signs: Vital Signs Temperature 98.7 F 03/13/24 03:30 Pulse Rate 125 H 03/13/24 03:30 Respiratory Rate 20 03/13/24 03:30 Blood Pressure 160/94 H 03/13/24 03:30 Pulse Oximetry 98 03/13/24 03:30 Oxygen Delivery Method Room Air 03/13/24 03:30 Temperature 98.7 F 03/13/24 03:30 Pulse Rate 125 H 03/13/24 03:30 Respiratory Rate 20 03/13/24 03:30 Blood Pressure 160/94 H 03/13/24 03:30 Pulse Oximetry 98 03/13/24 03:30 Oxygen Delivery Method Room Air 03/13/24 03:30 MDM - Skin/Abscess/Foreign Bdy MDM Narrative Medical decision making narrative: My clinical impression is that the patient has cellulitis. The possibility that this is from an insect bite was discussed with the patient. She does not have findings elsewhere on her skin. She started on Bactrim and Keflex here and was prescribed same. She was also prescribed Zofran and given 1 here as well. Treatment diagnosis and follow-up were discussed with the patient. Differential Diagnosis Differential diagnosis: Likely abscess of skin or subcutaneous tissue, cellulitis and insect bites Discharge Plan Discharge Stand Alone Forms: Portal Instructions Chief Complaint: Skin/Abscess/Foreign Body Clinical Impression: Cellulitis Patient Disposition: Home, Self-Care Time of Disposition Decision: 03:42 Condition: Good Mode of Transportation: Private Vehicle Prescriptions / Home Meds: New sulfamethoxazole-trimethoprim [Bactrim DS] 800-160 mg tablet 1 tab PO BID 10 Days Qty: 20 0RF cephalexin 500 mg capsule 500 mg PO QID 10 Days Qty: 40 0RF ondansetron 4 mg tablet,disintegrating 4 mg PO Q6H PRN (Reason: nausea and vomiting) Qty: 20 0RF Print Language: Ghanaian Instructions: Cellulitis (ED), Warm Compress or Soak (ED) Referrals: Physician,Non-Staff, MD [Primary Care Provider] - 1 week
[2024-03-13] MEDS: SULFAMETHOXAZOLE/TRIMETHOPRIM 800-160 MG TABLET 1 TAB PO (04:00)
[2024-03-13] MEDS: ONDANSETRON 4 MG RAPDIS TABLET SL (04:00)
[2024-03-13] MEDS: CEPHALEXIN 500 MG CAPSULE PO (04:00)
[2024-03-13 04:10] VITALS: BP 159/93; PULSE 115; O2SAT 99
== END 2024-03-13 04:10 | disposition home or self-care (01) ==
PROVIDERS: Emergency Provider Emergency Medicine
DX: L03.115 Cellulitis of right lower limb (principal)
CPT/HCPCS: 99284; Q0162

== ENCOUNTER 2024-03-13 10:38 | Observation (INO) | payer OTHER, SELFPAY ==
[2024-03-13] VITALS (16 sets, daily range): BP systolic 114–147; BP diastolic 73–93; PULSE 115–134; TEMP 37.3–39.2; O2SAT 95–100; BMI 46.0; BMI 47.6
--- OUTSIDE RECORDS SUMMARY | 2024-03-13 10:52 | XMS_ITS | CCD ---
Author Organization [facility] CliniSyvt Care Team Providers Care [employer] Name Role Phone Ilia Monson Unavailable ILIA MONSON Attending Unavailable SELF, SELF Referring Unavailable CAROL, ILIA Lee Attending Unavailable SELF, SELF Referring Unavailable Ilia Monson Primary Care Provider THAO TORRES Attending U navailable HASTINGS, LASHAE [...] Attending Unavailable ILIA COBB Primary Care Physician MIKAELA MARCH Primary Care Physician BARAK MABRY Admitting Unavailable BARAK MABRY Attending Unavailable BARAK MABRY Admitting Unavailable NONE, XXXX Primary Care Physician Unavailab Arelis Gonzalez Attending Unavailable JOAQUIM MIKAELA Primary Care Unavailable Arelis Yip Attending Unavailable Arelis Yip Referring Unavailable Arelis Yip Attending Unavailable MARIA DE JESUS ANTONIO Attending Unavailable [facility], MIKAELA Primary Care Unavailable Arelis Yip Attending Unavailable SHAMPR, MIKAELA Primary Care Unavailable MARIA DE JESUS ANTONIO Attending Unavailable SHAMMO, MIKAELA Primary Care Unavailable MARIA DE JESUS ANTONIO Admitting Unavailable MARIA DE JESUS ANTONIO Attending Unavailable [facility], MIKAELA Primary Care Unavailable Medications Current [...] / neomycin 3.5 mg/ml / polymyxin b 60903 unt/ml otic suspension (8 sources) Aminoglycoside Antibacterial, Polymyxin-class Antibacterial, Corticosteroid Start: 06-06-2018 fawxjoxp-chqtfssjn-ouodqcwtg isone (CORTISPORIN) otic suspension Administer 4 drops into ears . 0 06/06/2018 Active Start: 06-06-2018 neomycin-polym yxin-hydrocortisone 3.5-09449-4 Suspension Indications: History of recurrent ear infection [...] Nausea/Vomiting, # 12 tab(s), Refills(s) 0, Pharmacy: [id number], 148, cm, 10/27/22 9:59:00 EDT, Height/Length Dosing, [...] deficiency] Chronic Other aftercare (1 source) [facility] [place] [facility] (current) drug therapy; Translations: [[employer] MARK[employer]BASS[employer]OR CURRENT DRUG THERAPY] Onset: 11-16-2022 Episodic Other [...] with eval prepped for scheduled eval. KK [facility] Screenson 01-17-2024 Screens [id number] #1.00TIFF [facility] Patient Educationon 01-16-20 24 Patient Education Obstetrics [...] provider. Document Revised: 12/08/2021 Document Reviewed: 12/08/2021 [employer] Patient Education ? 2022 [employer] [facility] Urology Office/Clinic Noteon 01-16-2024 Urology Office/Clinic Note [...] provided. -Practice Kegels -Referral to PFPT @ [facility] 2. Kidney stone (N20.0: Calculus of kidney) CT AP w/wo con 08/26/22 @[facility] stone 7.5 mm. 1-2 [...] - (more content not included)... Normal [facility] Comment on above: Result Comment: Elec [...] have results. I faxed orders over to [facility] for RASHEEDA/KUB. Uric Acid and Citric [...] our call Pt seen KML on 10/02/23 [facility] C Urineon 10-05-2023 Bacteria identified Cx Nom [...] Locations R1: This [facility] performed at[facility], [address] [place] [address], [facility] , , [facility] Comment on above: Performed By: #### 2 [id number] ####[facility] [address] [place] [address] Lab Reportson 10-04-2023 Lab Reports [id number]#1.00TIFF [facility] Lab Reports [id number] #1.00TIFF [facility] Ambulatory Visit Summaryon 0 10-02-2023 Ambulatory Visit [...] DE JESUS Perez Where: [facility] Patient Educationon 10-02-19 Patient Education Urology Kidney [...] these instructions at home: Medicines ? Take ktzm-ieb-wrutsws and prescription medicines only as told by [...] provider. Document Revised: 04/03/2022 Document Reviewed: 04/03/2022 [employer] Patient Education ? 2022 [employer] Normal [facility] URINALYSISOrdered By: Anne Taveras on 10-02-2023 [...] (Urine sed) [#/Area] 3-4 /HPF Normal 0-2/HPF [facility] UA Aut o SS Glucose Test strip (U) [Mass/Vol] Negative (10/02/23 1:55 PM) Normal Negative [facility] UA Auto SS Hemoglobin Ql (U) Negative (10/02/23 1:55 PM) Normal Negative [facility] UA Auto SS Ketones (U) [Mass/Vol] Negative (10/02/23 1:55 PM) Normal Negative [facility] UA Auto SS [place].plasma/Lithiu m.RBC (Bld) [Mass ratio] 0-3 /HPF Normal 0-3/HPF [facility] UA Auto SS Mucus Ql (Urine sed) Trace (10/02/23 1:55 PM) Normal [facility] UA Auto SS Nitrite Ql (U) Negative (10/02/23 1:55 PM) Normal Negative [facility] UA Auto SS pH (U) 6.5 *NA* (10/02/23 1:55 PM) Invalid Interpretation Code 5.0 - 9.0 [facility] UA Auto SS Protein (U) [Mass/Vol] Negative (10/02/23 1:55 PM) Normal Negative [facility] UA Auto SS Specific gravity (U) [Rel density] 1.020 *NA* (10/02/23 1:55 PM) Invalid Interpretation Code 1.005 - 1.030 [facility] UA Auto SS UA Spec Desc Random Urine (10/02/23 1:55 PM) Normal [facility] UA Auto SS Urobilinogen Qn (U) 0.4781105 {Mi'U}/dL Normal 0.0 - 1.0 EU/dL [facility] UA Auto SS WBC Auto Ql (U) Negative (10/02/23 1:55 PM) Normal Negative [facility] UA Auto SS WBC LM.HPF (Urine sed) [#/Area] 0-5 /HPF Normal 0-5/HPF [facility] UA Auto SS Urinalysison 10-02-2023 Bacteria LM Ql (Urine sed) 1+ /HPF Abnormal Trace [facility] Comment on above: Performed By: #### 1 [id number] ####[facility] [address] [place] [address] Bilirubin Ql (U) Negative Normal Negative [facility] Comment on above: Performed By: #### 1 [id number] ####[facility] [address] [place] [address] Calcium oxalate crystals LM Ql (Urine sed) Present Normal [facility] Comment on above: Performed By: #### 1 [id number] ####[facility] [address] [place] [address] Clarity (U) SL CLOUDY Invalid Interpretation Code [facility] Comment on above: Performed By: #### 1 [id number] ####[address] [address] Color (U) YELLOW Normal Yellow [facility] Comment on above: Performed By: #### 1 [id number] ####[address] [address] Epithelial cells.squamous LM.HPF (Urine sed) [#/Area] 3-4 Normal 0-2 [facility] Comment on above: Performed By: #### 1 [id number] ####[address] [address] Glucose Test strip (U) [Mass/Vol] Negative Normal Negative [facility] Comment on above: Performed By: #### 1 [id number] ####[address] [address] Hemoglobin Ql (U) Negative Normal Negative [facility] Comment on above: Performed By: #### 1 [id number] ####[facility] [address] [place] [address] Ketones (U) [Mass/Vol] Negative Normal Negative [facility] Comment on above: Performed By: #### 1 [id number] ####[facility] [address] [place] [address] [place].plasma/Lithiu m.RBC (Bld) [Mass ratio] 0-3 Normal 0-3 [facility] Comment on above: Performed By: #### 1 [id number] ####[facility] [address] [place] [address] Mucus Ql (Urine sed) TRACE Normal [facility] Comment on above: Performed By: #### 1 [id number] ####[facility] [address] [place] [address] Nitrite Ql (U) Negative Normal Negative [facility] Comment on above: Performed By: #### 1 [id number] ####[address] [address] pH (U) 6.5 [pH] Invalid Interpretation Code 5.0-9.0 [facility] Comment on above: Performed By: #### 1 [id number] ####[address] [address] Protein (U) [Mass/Vol] Negative Normal Negative [facility] Comment on above: Performed By: #### 1 [id number] ####[address] [address] Specific gravity (U) [Rel density] 1.020 Invalid Interpretation Code 1.005-1.030 [facility] Comment on above: Performed By: #### 1 [id number] ####[address] [address] Type of Urine collection method Random Urine Normal [facility] Comment on above: Performed By: #### 1 [id number] ####[address] [address] Urobilinogen Qn (U) 0.2 {Mi'U}/dL Normal 0.0-1.0 [facility] Comment on above: Performed By: #### 1 [id number] ####[address] [address] WBC Auto Ql (U) Negative Normal Negative [facility] Comment on above: Performed By: #### 1 [id number] ####[address] [address] WBC LM.HPF (Urine sed) [#/Area] 0-5 Normal 0-5 [facility] Comment on above: Performed By: #### 1 [id number] ####[address] [place] [address] Urology Office/Clinic Noteon 10-02-2023 Urology Office/Clinic Note Chief Complaint 6m KUB/RASHEEDA & 24hr urine HPI Staff KML pt 23 year old female here for 6 month with KUB and RASHEEDA. Previous DX: renal stone, gross hematuria and renal cyst. RASHEEDA and KUB done 08/22/23. Following last encounter [...] E&M of Est. Patient Moderate 30-39 Min 32984 2. Renal cyst (N28.1: Cyst of kidney, acquired) simple cyst does not require additional monitoring Ordered: E&M of Est. Patient Moderate 30-39 Min 92488 Urnls Dip Stick Auto w/o Microscopy POC 78910 3. Gross hematuria (R31.0: Gross hematuria) UA [...] E&M of Est. Patient Moderate 30-39 Min 82882 Urinalysis Urine Culture Follow-up With When Contact Information MARIA DE JESUS ANTONIO PA-C, URL Within 1 year Additional Instructions: Patient Education Kidney Stones, Zsbf-wv-Vsvs Problem List/Past Medical History Ongoing Asthma Deafness [...] 05/06/2019 Recorded mening (more content not included)... [facility] Comment on above: Result Comment: Elec tronically Signed By: MARIA DE JESUS ANTONIO PA-C\.radha\Date and Time Signed: 10/02/23 14:03 EST Provider Orderson 09-12-2023 Provider Orders [id number] #1.00OTGTIFF [facility] Reminderson 08-27-2023 Reminders - From: Kari Stanton To: LUCINDA - Katia Yip; Sent: 03/14/2023 09:53:04 EDT Show up: 08/19/2023 09:52:00 EST Subject: RASHEEDA/KUB/ PTH/Urice acid Due Date/Time: 08/19/2023 09:53:00 EST Reminder/Recall to be completed prior to patients 6m follow up with Dr Yip on 09/19/23 H duplicate message. [facility] RAD - MISCon 08-24-2023 RAD - MISC [id number] #1.00TIFF [facility] RAD - Ultrasound Reporton RAD - Ultrasound Report [id number] #1.00TIFF [facility] Lab Reportson 06-18-2023 Lab Reports [id number]# 1.00TIFF [facility] Provider Orderson 06-15-2023 Provider Orders [id number] #1.00OTGTIFF [facility] Provider Orderson 06-04-2023 Provider Orders [id number] [facility] 03-30-2023 Lab Reports [id number] #1.00CD:127 [facility] Ambulatory Visit Summaryon 0 03-14-2023 Ambulatory Visit Summary KEYONA ATKINS :2000 Visit Date:03/14/2023 Ambulatory Visit Instructions Your Diagnosis Renal stone Gross hematuria Renal cyst Tests Performed Urnls Dip Stick Auto w/o Microscopy POC 47338 US Renal -- Results Pending -- XR [...] Arelis Yip MD Where: [facility] Formson 03-14-2023 Forms [id number] #1.00CD:127 [facility] Patient Educationon 03-14-20 Patient Education Nephrology Dietary [...] Spinach (cooked), rhubarb, beets, sweet potatoes, and Venezuelan chard. ? Peanuts. ? Potato chips, tongan fries, and baked potatoes with skin on. ? Nuts and nut products. ? Chocolate. ? If you regularly take a diuretic medicine, make sure to eat at least 1 or 2 servings of fruits or vegetables that are high in potassium each day. These include: ? Avocado. ? Banana. ? Knox, prune, carrot, or tomato juice. ? Baked [...] fish oil, or vitamin B6. ? Take oeud-cvj-raubkqa and prescription medicines only as told by your health care provider. These include supplements. What foods should I limit? Limit your in (more content not included)... Normal [facility] Urology Office/Clinic Noteon 03-14-2023 Urology Office/Clinic Note Chief Complaint S/P Ureteroscopy RASHEEDA/KUB HPI Staff S/P Cysto/Lt RG/Laser Litho/Stone Extraction & Lt Stent Placement w/UD done11/08/22. Stent was then removed 11/13/22. Pt did go to [place] [facility] following stent removal due to nausea [...] Procedure/Surgical H (more content not included)... Normal [facility] Comment on above: Result Comment: Elec tronically Signed By: Arelis Yip MD\.br\Date and Time Signed: 03/14/23 10:44 EDT\.br\Electronically Co-Signed By: Bethany March\.br\Date and Time Co-Signed: 03/14/23 10:04 EDT RAD - MISCon 01-23-2023 RAD - MISC [id number] #1.00CD:127 Normal [facility] RAD - Ultrasound Reporton RAD - Ultrasound Report [id number]# 1.00CD:127 Normal [facility] CALCULI, URINARYon 3 2,8 Dihydroxyadenine Normal [facility] Comment on above: Performed By: #### C ALCULI #### [facility] [address] [address] [address] Graciela Paz Ammonium Acid Urate Normal [facility] Comment on above: Performed By: #### C ALCULI #### [facility] [address] [address] [address] Graciela Paz Bilirubin Ql (U) Normal [facility] Comment on above: Performed By: #### C ALCULI #### [facility] [address] [address] [address] Graciela Paz Ca Oxalate Dihydrate 90 % Normal [facility] Comment on above: Performed By: #### C ALCULI #### [facility] [address] [address] [address] Grcaiela Paz CaHPO4 (Brushite) Normal [facility] Comment on above: Performed By: #### C ALCULI #### [facility] [address] [address] [address] Graciela Paz Calcium Bilirubinate Normal [facility] Comment on above: Performed By: #### C ALCULI #### [facility] [address] [address] [address] Graciela Paz Calcium Carbonate Normal [facility] Comment on above: Performed By: #### C ALCULI #### [facility] [address] [address] [address] Graciela Paz Calcium Oxalate Monohydrate 5 % [facility] Comment on above: Performed By: #### C ALCULI #### [facility] [address] [address] [address] Graciela Paz Calcium Palmitate Normal [facility] Comment on above: Performed By: #### C ALCULI #### [facility] [address] [address] [address] Graciela Paz Calcium Phosphate [facility] Comment on above: Performed By: #### C ALCULI #### [facility] [address] [address] [address] Graciela Paz Calcium Stearate [facility] Comment on above: Performed By: #### C ALCULI #### [facility] [address] [address] [address] Graciela Paz Carbonate Apatite Normal [facility] Comment on above: Performed By: #### C ALCULI #### [facility] [address] [address] [address] Graciela Paz Cellular Material [facility] Comment on above: Performed By: #### C ALCULI #### [facility] [address] [address] [address] Graciela Paz Cholesterol [facility] Comment on above: Performed By: #### C ALCULI #### [facility] [address] [address] [address] Graciela Paz Color (U) Nolasco Normal [facility] Comment on above: Performed By: #### C ALCULI #### [facility] [address] [address] [address] Graciela Paz Comment Comment Normal [facility] Comment on above: Result Comment: Calc ium phosphate (hydroxyl form) includes hydroxyapatite, amorphous calcium phosphate, and whitlockite. Hydroxyapatite is the most common of the calcium phosphate salts found in human kidney stones. Performed By: #### C ALCULI #### [facility] [address] [address] [address] Graciela Paz Result Comment: Calc ulus received wet. Wet calculi must be dried before analysis, which delays reporting of results. Leaving calculi wet (such as water, saline, blood, urine) may lead to changes in composition. Comment: Comment Normal [facility] Comment on above: Result Comment: Emily mullen questions regarding Calculi Analysis contact [facility] at: [phone]. Performed By: #### C ALCULI #### [facility] [address] [address] [address] Graciela Paz Composition Comment Normal [facility] Comment on above: Result Comment: Perc entage (Represents the % composition) Performed By: #### C ALCULI #### [facility] [address] [address] [address] Graciela Paz Cystine Normal [facility] Comment on above: Performed By: #### C ALCULI #### [facility] [address] [place] [address] Dr. Graciela Paz Disclaimer: Comment Normal [facility] Comment on above: Result Comment: This test was developed and its performance characteristics determined by [facility]. It has not been cleared or approved by the Food and Drug Administration. Performed By: #### C ALCULI #### [facility] [address] [address] [address] Graciela Paz Dried Blood [facility] Comment on above: Performed By: #### C ALCULI #### [facility] [address] [address] [address] Graciela Paz Drug or Metabolite Normal [facility] Comment on above: Performed By: #### C ALCULI #### [facility] [address] [address] [address] Graciela Paz Hydroxyapatite 5 % Normal [facility] Comment on above: Performed By: #### C ALCULI #### [facility] [address] [address] [address] Graciela Paz Mg NH4 PO4 (Struvite) [facility] Comment on above: Performed By: #### C ALCULI #### [facility] [address] [address] [address] Graciela Paz MgHPO4 (Newberyite) Normal [facility] Comment on above: Performed By: #### C ALCULI #### [facility] [address] [address] [address] Graciela Paz Other component(s) Normal [facility] Comment on above: Performed By: #### C ALCULI #### [facility] [address] [address] [address] Graciela Paz PDF . Normal [facility] Comment on above: Performed By: #### C ALCULI #### [facility] [address] [address] [address] Graciela Paz Photo Comment [facility] Comment on above: Result Comment: Phot ograph will follow under a separate cover Performed By: #### C ALCULI #### [facility] [address] [address] [address] Graciela Paz Please note: Comment Normal [facility] Comment on above: Result Comment: Calc rafal report will follow via computer, mail or employment case manager delivery. Performed By: #### C ALCULI #### [facility] [address] [address] [address] Graciela Paz Size 2x3 [facility] Comment on above: Result Comment: Mult iple pieces received. Dimensions of the largest piece reported. Performed By: #### C ALCULI #### [facility] [address] [address] [address] Graciela Paz Sodium Acid Urate Normal [facility] Comment on above: Performed By: #### C ALCULI #### [facility] [address] [address] [address] Graciela Paz Source Comment [facility] Comment on above: Result Comment: Left Kidney Performed By: #### C ALCULI #### [facility] [address] [place] [address] Dr. Graciela Paz Triamterene [facility] Comment on above: Performed By: #### C ALCULI #### [facility] [address] [place] [address] Dr. Graciela Paz Uric Acid [facility] Comment on above: Performed By: #### C ALCULI #### [facility] [address] [place] [address] Dr. Graciela Paz Uric Acid Dihydrate [facility] Comment on above: Performed By: #### C ALCULI #### [facility] [address] [place] [address] Dr. Graciela Paz Weight 58 mg [facility] Comment on above: Performed By: #### C ALCULI #### [facility] [address] [place] [address] Dr. Graciela Paz Xanthine [facility] Comment on above: Performed By: #### C ALCULI #### [facility] [address] [place] [address] Dr. Graciela Paz CBC AUTO DIFFon 11-13-2022 BASO # 0.1 103/ul Normal 0.0-0.1 [facility] Comment on above: Performed By: #### C BC #### [facility] [address] [place] [address] Dr. Graciela Paz Basophils/100 WBC (Bld) 0.8 % Normal 0.2-2.0 [facility] Comment on above: Performed By: #### C BC #### [facility] [address] [place] [address] Dr. Graciela Paz EO # 0.2 103/ul Normal 0.0-0.7 [facility] Comment on above: Performed By: #### C BC #### [facility] [address] [place] [address] Dr. Graciela Paz Eosinophils/100 WBC (Bld) 3.2 % Normal 0.9-7.0 [facility] Comment on above: Performed By: #### C BC #### [facility] [address] [place] [address] Dr. Graciela Paz Erythrocyte distribution width (RBC) [Ratio] 13.2 % Normal 11.0-15.0 [facility] Comment on above: Performed By: #### C BC #### [facility] [address] [place] [address] Dr. Graciela Paz Hematocrit (Bld) [Volume fraction] 37.3 % Normal 36.0-48.0 [facility] Comment on above: Performed By: #### C BC #### [facility] [address] [place] [address] Dr. Graciela Paz Hemoglobin (Bld) [Mass/Vol] 12.5 g/dL Normal 12.0-16.0 [facility] Comment on above: Performed By: #### C BC #### [facility] [address] [place] [address] Dr. Graciela Paz IG # 0.03 10e3/ul Normal 0.00-0.03 [facility] Comment on above: Performed By: #### C BC #### [facility] [address] [place] [address] Dr. Graciela Paz IG % 0.5 % Normal 0.0-0.5 [facility] Comment on above: Performed By: #### C BC #### [facility] [address] [place] [address] Dr. Graciela Paz LYMPH # 1.5 103/ul Normal 1.2-3.8 [facility] Comment on above: Performed By: #### C BC #### [facility] [address] [place] [address] Dr. Graciela Paz Lymphocytes/100 WBC (Bld) 23.7 % Normal 20.5-60.0 [facility] Comment on above: Performed By: #### C BC #### [facility] [address] [place] [address] Dr. Graciela Paz MANUAL DIFF REQ NO Normal [facility] Comment on above: Performed By: #### C BC #### [facility] [address] [address] [address] Graciela Paz MCH (RBC) [Entitic mass] 30.3 pg Normal 26.7-34.0 [facility] Comment on above: Performed By: #### C BC #### [facility] [address] [address] [address] Graciela Paz MCHC (RBC) [Mass/Vol] 33.5 g/dL Normal 29.9-35.2 [facility] [facility] Comment on above: Performed By: #### C BC #### [facility] [address] [address] [address] Graciela Paz MCV (RBC) [Entitic vol] 90.5 fL Normal 81.0-99.0 [facility] Comment on above: Performed By: #### C BC #### [facility] [address] [place] [address] Dr. Graciela Paz MONO # 0.6 103/ul Normal 0.3-0.8 [facility] Comment on above: Performed By: #### C BC #### [facility] [address] [place] [address] Dr. Graciela Paz Monocytes/100 WBC (Bld) 9.1 % Normal 1.7-12.0 [facility] Comment on above: Performed By: #### C BC #### [facility] [address] [place] [address] Dr. Graciela Paz NEUT # 4.1 103/ul Normal 1.4-6.5 [facility] Comment on above: Performed By: #### C BC #### [facility] [address] [place] [address] Dr. Graciela Paz Neutrophils/100 WBC (Bld) 62.7 % Normal 43.0-75.[address] [facility] Comment on above: Performed By: #### C BC #### [facility] [address] [place] [address] Dr. Graciela Paz Platelet mean volume (Bld) [Entitic vol] 9.7 fL Normal 9.5-13.[address] [facility] Comment on above: Performed By: #### C BC #### [facility] [address] [address] [address] Graciela Paz PLT 193 103/ul Normal 150-450 [facility] Comment on above: Performed By: #### C BC #### [facility] [address] [place] [address] Dr. Graciela Paz RBC 4.12 106/ul Critically low 4.20-5.40 [facility] Comment on above: Performed By: #### C BC #### [facility] [address] [place] [address] Dr. Graciela Paz WBC 6.5 103/ul Normal 4.0-11.0 [facility] Comment on above: Performed By: #### C BC #### [facility] [address] [place] [address] Dr. Graciela Paz ER URINE PROFILEon 3 Bilirubin Ql (U) SMALL Abnormal NEGATIVE [facility] Comment on above: Performed By: #### U MICRO, ERUR #### [facility] [address] [place] [address] Dr. Graciela Paz Clarity (U) CLOUDY Abnormal CLEAR [facility] Comment on above: Performed By: #### U MICRO, ERUR #### [facility] [address] [place] [address] Dr. Graciela Paz Color (U) DK. YELLOW Normal YELLOW [facility] Comment on above: Performed By: #### U MICRO, ERUR #### [facility] [address] [place] [address] Dr. Graciela Paz ERUAHD A micrscopic examination will be performed if indicated. Normal [facility] Comment on above: Performed By: #### U MICRO, ERUR #### [facility] [address] [place] [address] Dr. Graciela aPz Glucose Ql (U) Negative Normal NEGATIVE [facility] Comment on above: Performed By: #### U MICRO, ERUR #### [facility] [address] [place] [address] Dr. Graciela Paz Hemoglobin Ql (U) LARGE Abnormal NEGATIVE [facility] Comment on above: Performed By: #### U MICRO, ERUR #### [facility] [address] [place] [address] Dr. Graciela Paz Ketones Ql (U) TRACE Abnormal NEGATIVE [facility] Comment on above: Performed By: #### U MICRO, ERUR #### [facility] [address] [place] [address] Dr. Graciela Paz LEUKOCYTES TRACE Abnormal NEGATIVE [facility] Comment on above: Performed By: #### U MICRO, ERUR #### [facility] [address] [place] [address] Dr. Graciela Paz Nitrite Ql (U) Negative Normal NEGATIVE [facility] Comment on above: Performed By: #### U MICRO, ERUR #### [facility] [address] [place] [address] Dr. Graciela Paz pH (U) 6.5 [pH] Normal 5-9 [facility] Comment on above: Performed By: #### U MICRO, ERUR #### [facility] [address] [place] [address] Dr. Graciela Paz Protein (U) [Mass/Vol] 300 mg/dL Abnormal NEGATIVE/ TRACE [facility] Comment on above: Performed By: #### U MICRO, ERUR #### [facility] [address] [place] [address] Dr. Graciela Paz SPEC GRAVITY 1.030 Abnormal 1.005-<=1.025 The [facility] Comment on above: Performed By: #### U MICRO, ERUR #### [facility] [address] [place] [address] Dr. Graciela Paz UR MICRO IND INDICATED Normal [facility] Comment on above: Performed By: #### U MICRO, ERUR #### [facility] [address] [place] [address] Dr. Graciela Paz Urobilinogen Qn (U) 0.2 {Mi'U}/dL Normal 0.2 - 1. 0 [facility] Comment on above: Performed By: #### U MICRO, ERUR #### [facility] [address] [address] [address] Graciela Paz PROF 14(COMP METB)on 023 Albumin [Mass/Vol] 4.4 g/dL Normal 3.4-5.0 [facility] Comment on above: Performed By: #### C MP #### [facility] [address] [address] [address] Graciela Paz Albumin/Globulin [Mass ratio] 1.2 {ratio} Normal [facility] Comment on above: Performed By: #### C MP #### [facility] [address] [place] [address] Dr. Graciela Paz ALP [Catalytic activity/Vol] 105 U/L Normal 46-116 [facility] Comment on above: Performed By: #### C MP #### [facility] [address] [place] [address] Dr. Graciela Paz ALT [Catalytic activity/Vol] 54 U/L Normal 14-59 [facility] Comment on above: Performed By: #### C MP #### [facility] [address] [place] [address] Dr. Graciela Paz Anion gap [Moles/Vol] 13.9 mmol/L Normal [facility] Comment on above: Performed By: #### C MP #### [facility] [address] [place] [address] Dr. Graciela Paz AST [Catalytic activity/Vol] 38 U/L Critically high 15-37 [facility] Comment on above: Performed By: #### C MP #### [facility] [address] [place] [address] Dr. Graciela Paz Bilirubin [Mass/Vol] 0.5 mg/dL Normal 0.2-1.0 [facility] Comment on above: Performed By: #### C MP #### [facility] [address] [place] [address] Dr. Graciela Paz Calcium [Mass/Vol] 10.9 mg/dL Critically high 8.5-10.1 [facility] Comment on above: Performed By: #### C MP #### [facility] [address] [address] [address] Graciela Paz Chloride [Moles/Vol] 103 mmol/L Normal 98-[address] [facility] Comment on above: Performed By: #### C MP #### [facility] [address] [place] [address] Dr. Graciela Paz CO2 [Moles/Vol] 24.1 mmol/L Normal 21.0-32.0 [facility] Comment on above: Performed By: #### C MP #### [facility] [address] [place] [address] Dr. Graciela Paz Creatinine [Mass/Vol] 0.60 mg/dL Normal 0.55-1.[address] [facility] Comment on above: Performed By: #### C MP #### [facility] [address] [place] [address] Dr. Graciela Paz EGFR-AF KITTITIAN >60 Normal >=60 [facility] Comment on above: Performed By: #### C MP #### [facility] [address] [place] [address] Dr. Graciela Paz EGFR-NON AF KITTITIAN >60 Normal >=60 [facility] Comment on above: Performed By: #### C MP #### [facility] [address] [place] [address] Dr. Graciela Paz Globulin (S) [Mass/Vol] 3.7 g/dL Normal [facility] Comment on above: Performed By: #### C MP #### [facility] [address] [place] [address] Dr. Graciela Paz Glucose [Mass/Vol] 111 mg/dL Critically high 74-106 [facility] Comment on above: Performed By: #### C MP #### [facility] [address] [place] [address] Dr. Graciela Paz Potassium [Moles/Vol] 4.0 mmol/L Normal 3.5-5.1 [facility] Comment on above: Performed By: #### C MP #### [facility] [address] [place] [address] Dr. Graciela Paz Protein [Mass/Vol] 8.1 g/dL Normal 6.4-8.2 The [facility] Comment on above: Performed By: #### C MP #### [facility] [address] [place] [address] Dr. Graciela Paz Sodium [Moles/Vol] 137 mmol/L Normal 136-145 [facility] Comment on above: Performed By: #### C MP #### [facility] [address] [place] [address] Dr. Graciela Paz Urea nitrogen [Mass/Vol] 11.0 mg/dL Normal 7.0-18.0 [facility] Comment on above: Performed By: #### C MP #### [facility] [address] [place] [address] Dr. Graciela Paz Urea nitrogen/Creatinine [Mass ratio] 18.3 mg/mg Normal [facility] Comment on above: Performed By: #### C MP #### [facility] [address] [place] [address] Dr. Graciela Paz URINE MICROSCOPIC ONLYon BACTERIA NONE SEEN Normal NONE SEEN [facility] Comment on above: Performed By: #### U MICRO, ERUR #### [facility] [address] [place] [address] Dr. Graciela Paz Bacteria identified Cx Nom (U) NOT INDICATED Normal [facility] Comment on above: Performed By: #### U MICRO, ERUR #### [facility] [address] [place] [address] Dr. Graciela Paz CAST NONE SEEN Normal NONE SEEN [facility] Comment on above: Performed By: #### U MICRO, ERUR #### [facility] [address] [place] [address] Dr. Graciela Paz Crystals LM Nom (Urine sed) NONE SEEN Normal NONE SEEN [facility] Comment on above: Performed By: #### U MICRO, ERUR #### [facility] [address] [place] [address] Dr. Graciela Paz Epithelial cells LM Ql (Urine sed) RARE Normal NONE SEEN /RARE [facility] Comment on above: Performed By: #### U MICRO, ERUR #### [facility] [address] [place] [address] Dr. Graciela Paz MUCOUS NONE SEEN Normal NONE SEEN [facility] Comment on above: Performed By: #### U MICRO, ERUR #### [facility] [address] [place] [address] Dr. Graciela Paz RBC (U) [#/Vol] /uL Abnormal 0-2 [facility] Comment on above: Performed By: #### U MICRO, ERUR #### [facility] [address] [place] [address] Dr. Graciela Paz WBC 5-10 Abnormal NONE SEEN [facility] Comment on above: Performed By: #### U MICRO, ERUR #### [facility] [address] [place] [address] Dr. Graciela Paz PREG HCG QUALon 11-08-2022 , QUAL Negative Normal NEGATIVE [facility] Comment on above: Performed By: #### P REG #### [facility] [address] [place] [address] Dr. Graciela Paz CBC AUTO DIFFon 11-01-2022 BASO # 0.0 103/ul Normal 0.0-0.1 [facility] Comment on above: Performed By: #### C BC #### [facility] [address] [place] [address] Dr. Graciela Paz Basophils/100 WBC (Bld) 0.9 % Normal 0.2-2.0 [facility] Comment on above: Performed By: #### C BC #### [facility] [address] [place] [address] Dr. Graciela Paz EO # 0.3 103/ul Normal 0.0-0.[address] [facility] Comment on above: Performed By: #### C BC #### [facility] [address] [place] [address] Dr. Graciela Paz Eosinophils/100 WBC (Bld) 5.9 % Normal 0.9-7.[address] [facility] Comment on above: Performed By: #### C BC #### [facility] [address] [place] [address] Dr. Graciela Paz Erythrocyte distribution width (RBC) [Ratio] 13.0 % Normal 11.0-15.0 [facility] Comment on above: Performed By: #### C BC #### [facility] [address] [place] [address] Dr. Graciela Paz Hematocrit (Bld) [Volume fraction] 35.3 % Critically low 36.0-48.0 [facility] Comment on above: Performed By: #### C BC #### [facility] [address] [place] [address] Dr. Graciela Paz Hemoglobin (Bld) [Mass/Vol] 11.8 g/dL Critically low 12.0-16.0 [facility] Comment on above: Performed By: #### C BC #### [facility] [address] [place] [address] Dr. Graciela Paz IG # 0.01 10e3/ul Normal 0.00-0.03 [facility] Comment on above: Performed By: #### C BC #### [facility] [address] [place] [address] Dr. Graciela Paz IG % 0.2 % Normal 0.0-0.5 [facility] Comment on above: Performed By: #### C BC #### [facility] [address] [place] [address] Dr. Graciela Paz LYMPH # 1.3 103/ul Normal 1.2-3.[address] [facility] Comment on above: Performed By: #### C BC #### [facility] [address] [place] [address] Dr. Graciela Paz Lymphocytes/100 WBC (Bld) 28.8 % Normal 20.5-60.[address] [facility] Comment on above: Performed By: #### C BC #### [facility] [address] [place] [address] Dr. Graciela Paz MANUAL DIFF REQ NO Normal [facility] Comment on above: Performed By: #### C BC #### [facility] [address] [place] [address] Dr. Graciela Paz MCH (RBC) [Entitic mass] 30.0 pg Normal 26.7-34.0 [facility] Comment on above: Performed By: #### C BC #### [facility] [address] [place] [address] Dr. Graciela Paz MCHC (RBC) [Mass/Vol] 33.4 g/dL Normal 29.9-35.2 [facility] Comment on above: Performed By: #### C BC #### [facility] [address] [place] [address] Dr. Graciela Paz MCV (RBC) [Entitic vol] 89.8 fL Normal 81.0-99.0 [facility] Comment on above: Performed By: #### C BC #### [facility] [address] [place] [address] Dr. Graciela Paz MONO # 0.5 103/ul Normal 0.3-0.8 [facility] Comment on above: Performed By: #### C BC #### [facility] [address] [place] [address] Dr. Graciela Paz Monocytes/100 WBC (Bld) 10.3 % Normal 1.7-12.0 [facility] Comment on above: Performed By: #### C BC #### [facility] [address] [place] [address] Dr. Graciela Paz NEUT # 2.4 103/ul Normal 1.4-6.5 [facility] Comment on above: Performed By: #### C BC #### [facility] [address] [place] [address] Dr. Graciela Paz Neutrophils/100 WBC (Bld) 53.9 % Normal 43.0-75.[address] [facility] Comment on above: Performed By: #### C BC #### [facility] [address] [place] [address] Dr. Graciela Paz Platelet mean volume (Bld) [Entitic vol] 9.2 fL Critically low 9.5-13.5 [facility] Comment on above: Performed By: #### C BC #### [facility] [address] [place] [address] Dr. Graciela Paz PLT 132 103/ul Critically low 150-450 [facility] Comment on above: Performed By: #### C BC #### [facility] [address] [place] [address] Dr. Graciela Paz RBC 3.93 106/ul Critically low 4.20-5.40 [facility] Comment on above: Performed By: #### C BC #### [facility] [address] [place] [address] Dr. Graciela Paz WBC 4.4 103/ul Normal 4.0-11.0 [facility] Comment on above: Performed By: #### C BC #### [facility] [address] [place] [address] Dr. Graciela Paz PROF CHEM 8 (BAS METB)on Anion gap [Moles/Vol] 12.8 mmol/L Normal [facility] Comment on above: Performed By: #### B MP #### [facility] [address] [place] [address] Dr. Graciela Paz Calcium [Mass/Vol] 10.1 mg/dL Normal 8.5-10.1 [facility] Comment on above: Performed By: #### B MP #### [facility] [address] [place] [address] Dr. Graciela Paz Chloride [Moles/Vol] 106 mmol/L Normal 98-107 [facility] Comment on above: Performed By: #### B MP #### [facility] [address] [place] [address] Dr. Graciela Paz CO2 [Moles/Vol] 25.2 mmol/L Normal 21.0-32.0 [facility] Comment on above: Performed By: #### B MP #### [facility] [address] [place] [address] Dr. Graciela Paz Creatinine [Mass/Vol] 0.44 mg/dL Critically low 0.55-1.02 [facility] Comment on above: Performed By: #### B MP #### [facility] [address] [place] [address] Dr. Graciela Paz EGFR-AF KITTITIAN >60 Normal >=60 [facility] Comment on above: Performed By: #### B MP #### [facility] [address] [address] [address] Graciela Paz EGFR-NON AF KITTITIAN >60 Normal >=60 [facility] Comment on above: Performed By: #### B MP #### [facility] [address] [address] [address] Graciela Paz Glucose [Mass/Vol] 96 mg/dL Normal 74-106 [facility] Comment on above: Performed By: #### B MP #### [facility] [address] [address] [address] Graciela Paz Potassium [Moles/Vol] 4.2 mmol/L Normal 3.5-5.1 [facility] Comment on above: Performed By: #### B MP #### [facility] [address] [address] [address] Graciela Paz Sodium [Moles/Vol] 140 mmol/L Normal 136-145 [facility] Comment on above: Performed By: #### B MP #### [facility] [address] [address] [address] Graciela Paz Urea nitrogen [Mass/Vol] 9.0 mg/dL Normal 7.0-18.0 [facility] Comment on above: Performed By: #### B MP #### [facility] [address] [address] [address] Graciela Paz Urea nitrogen/Creatinine [Mass ratio] 20.5 mg/mg Normal [facility] Comment on above: Performed By: #### B MP #### [facility] [address] [address] [address] Graciela Paz PROTIMEon 11-01-2022 INR Coag (PPP) [Relative time] 0.97 {INR} Normal [facility] Comment on above: Performed By: #### P T, PTT ####[facility] [id number] [address]Dr. Graciela Paz INR GUIDELINES SEE BELOW Normal [facility] Comment on above: Result Comment: JONATHON RED INR: 2.0 - 3.0 CONDITIONS NOT LISTED BELOW 2.5 - 3.5 FOR PROSTHETIC HEART VALVE REPLACEMENT 2.5 - 3.5 RECURRENT THROMBOSIS Performed By: #### P T, PTT ####[facility] [id number] [place], [place] [address]Ht. Graciela Paz PT Coag (PPP) [Time] 10.3 s Normal 9.0-11.[address] [facility] Comment on above: Performed By: #### P T, PTT ####[facility] [id number] [place], [place] [address]Do. Graciela Paz PTTon 11-01-2022 aPTT Coag (Bld) [Time] 26.8 s Normal 22.3-36.2 [facility] Comment on above: Performed By: #### P T, PTT ####[facility] [id number] Graciela Paz CT ABD/PELV WO W CONon [...] by: KAYCE SANDS Date: 2022-08-28 15:34 Normal [facility] ESTRADIOLon 03-15-2020 ESTRADIOL 20 pg/mL Normal [facility] Comment on above: Result Comment: REF VALUES FOLLICULAR PHASE 20-144 MID CYCLE 64-357 LUTEAL PHASE 56-214 POSTMENOPAUSE < 32 PREPUBERTY < 20 FEMALE 10-18Y 8-110 MALE 10-18Y < 20 ADULT MALE < 40 Performed By: #### E STRA #### [facility] [address] [place] [address] FOLLICLE STIM. HORMONEon FOLLICLE STIM. HORMONE 72.5 IU/L Normal [facility] Comment on above: Result Comment: REF VALUES FOLLICULAR 2-12 MID-CYCLE 12-25 LUTEAL PHASE 2-12 MENOPAUSE 30-150 PREPUBERTY 50% ADULT ADULT MALE 2-10 INFANTS 0-1 Performed By: #### F SH #### [facility] [address] [place] [address] GGTon 03-15-2020 Gamma glutamyl transferase [Catalytic activity/Vol] 26 U/L Normal 5 - 55 [facility] Comment on above: Performed By: #### G GT #### [address] [id number] GLUCOSEon 03-15-2020 Glucose [Mass/Vol] 91 mg/dL Normal 74 - 99 [facility] Comment on above: Performed By: #### G EDGAR #### [address] [id number] HEMOGLOBIN A1Con 03-15-2020 HbA1c (Bld) [Mass fraction] 5.3 % Normal [facility] Comment on above: Result Comment: Diag nosis of Diabetes-Adults Non-Diabetic: < or = 5.6% Increased risk for developing diabetes: 5.7-6.4% Diagnostic of diabetes: > or = 6.5% . Monitoring of Diabetes Age (y) Therapeutic Goal (%) Adults: >18 <7.0 Pediatrics: 13-18 <7.5 7-12 <8.0 0- 6 7.5-8.5 [employer]. Diabetes Care 33(S1), Aug 2009. Performed By: #### H BA1E #### [facility] [address] [place] [address] HbA1c (Bld) [Mass fraction] 105 MG/DL Normal [facility] Comment on above: Performed By: #### H BA1E #### [facility] [address] [place] [address] HEPATIC FUNCTION PANELon Albumin [Mass/Vol] 4.1 g/dL Normal 3.4 - 5.0 [facility] Comment on above: Performed By: #### H EPFP #### [address] [id number] ALP [Catalytic activity/Vol] 113 U/L High 33 - 110 [facility] Comment on above: Performed By: #### H EPFP #### [address] [id number] ALT [Catalytic activity/Vol] 29 U/L Normal 7 - 45 [facility] Comment on above: Result Comment: Amy ents treated with Sulfasalazine may generate falsely decreased results for ALT. Performed By: #### H EPFP #### [address] [id number] AST [Catalytic activity/Vol] 24 U/L Normal 9 - 39 [facility] Comment on above: Performed By: #### H EPFP #### [address] [id number] Bilirubin [Mass/Vol] 0.4 mg/dL Normal 0.0 - 1.2 [facility] Comment on above: Performed By: #### H EPFP #### [address] [id number] Bilirubin.direct [Mass/Vol] 0.1 mg/dL Normal 0.0 - 0.3 [facility] Comment on above: Performed By: #### H EPFP #### [address] [id number] Protein [Mass/Vol] 6.9 g/dL Normal 6.4 - 8.2 [facility] Comment on above: Performed By: #### H EPFP #### [address] [id number] LIPID PANEL (CORONARY RISK 2 )on 03-15-2020 Cholesterol [Mass/Vol] 203 mg/dL High 0 - 199 [facility] Comment on above: Result Comment: [...] dosing. Performed By: #### L IPID #### [address] [id number] Cholesterol in HDL [Mass/Vol] 32.0 mg/dL Abnormal [facility] Comment on above: Result Comment: . AGE VERY LOW LOW NORMAL HIGH 0-19 Y < 35 < 40 40-45 ---- 20-24 Y ---- < 40 >45 ---- >24 Y ---- < 40 40-60 >60 . Performed By: #### L IPID #### [address] [id number] Cholesterol in LDL [Mass/Vol] 130 mg/dL High 0 - 109 [facility] Comment on above: Result Comment: . NEAR BORD AGE DESIRABLE OPTIMAL HIGH HIGH VERY HIGH 0-19 Y 0 - 109 --- 110-129 >/= 130 ---- 20-24 Y 0 - 119 --- 120-159 >/= 160 ---- >24 Y 0 - 99 100-129 130-159 160-189 >/=190 . Performed By: #### L IPID #### [address] [id number] Cholesterol in VLDL [Mass/Vol] 41 mg/dL High 0 - 40 [facility] Comment on above: Performed By: #### L IPID #### [address] [id number] Cholesterol.total/Cho lesterol in HDL [Mass ratio] 6.3 {ratio} Abnormal [facility] Comment on above: Result Comment: REF VALUES DESIRABLE < 3.4 HIGH RISK > 5.0 Performed By: #### L IPID #### [address] [id number] NON-HDL CHOLESTEROL 171 mg/dL High 0 - 119 [facility] Comment on above: Result Comment: AGE DESIRABLE BORDERLINE HIGH HIGH VERY HIGH 0-19 Y 0 - 119 120 - 144 >/= 145 >/= 160 20-24 Y 0 - 149 150 - 189 >/= 190 ---- >24 Y 30 MG/DL ABOVE LDL CHOLESTEROL GOAL . Performed By: #### L IPID #### [address] [id number] Triglyceride [Mass/Vol] 206 mg/dL High 0 - 149 [facility] Comment on above: Result Comment: [...] dosing. Performed By: #### L IPID #### [address] [id number] LUTEINIZING HORMONEon 2019 LUTEINIZING HORMONE 29.3 IU/L Normal [facility] Comment on above: Result Comment: REF VALUES FOLLICULAR PHASE 1.9-12.5 MID-CYCLE 8.7-76.3 LUTEAL PHASE 0.5-16.9 POST MENOPAUSE 5.0-55.2 CHILDREN 0- 6.0 ADULT MALE 18-70 1.5- 9.3 ADULT MALE >70 3.1-34.6 Performed By: #### L H #### [facility] [id number] [place] [address] THYROXINE,FREEon 03-15-2020 THYROXINE,FREE 0.80 ng/dL Normal 0.61 - 1.12 [facility] Comment on above: Result Comment: Thyr oxine Free testing is performed using different testing methodology at [facility] ([facility]3] than at other [facility]. Direct result comparisons should only be [...] draw. Performed By: #### T 4FRE #### [address] [id number] TSHon 03-15-2020 TSH Qn 4.05 m[IU]/L High 0.44 - 3.98 [facility] Comment on above: Result Comment: TSH testing is performed using different testing methodology at [facility] ([facility]3] than at other [facility]. Direct result comparisons should only be made within the same method. Performed By: #### T SH2 #### [address] [id number] TTG AB,IGAon 03-15-2020 TTG AB,IGA <1 Normal 0 - 14 [facility] Comment on above: Result Comment: Rachell ac disease is unlikely. False negative Tissue Transglutaminase Antibody, IgA results can occur in approximately 10% of patients with celiac disease, patients already adhering to a gluten-free diet, or patients with IgA deficiency. Performed By: #### H EPFP #### [address] [phone] MRA CHEST W WO CONTRASTon MRA CHEST W WO CONTRAST [facility] Department of Radiology [address] [place] [id number] Patient Name: KEYONA ATKINS : 2000 Sex: F Age: Race: White Pt. 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 Electronically signed by:Radha Orozco. Transcribed by: [email or web address], User Resident: Electronically Signed by: RADHA OROZCO @ 04/23/2019 01:10 PM Normal [facility] Comment on above: Order Comment: , , = ========= , Ordering Provider - DEMAR COOMBS MD , MRA HEAD WO CONTRASTon 04-22 MRA HEAD WO CONTRAST [facility] Department of Radiology [address] [place] [id number] Patient Name: KEYONA ATKINS : 2000 Sex: F Age: Race: White Pt. Location: Patient Status: D Ordered Date: 03/24/2019 3:30:00 PM Completed Date: 04/22/2019 12:59 PM Requesting Provider: DEMAR SCHUSTER Attending Provider: DEMAR SCHUSTER Report Copy To: MARIA DE JESUS CASTRO Signs & Symptoms: I10 Essential (primary) hypertension I10 History: [place], No FB per mother [place] auth # [id number] 03/28/19-04/27/19 [id number] *er Comments: , , , Ordering Provider [...] findings. Electronically signed by:Ayana Cary. Transcribed by: [email or web address], User Resident: BARAK FOREMAN Electronically Signed by: AYANA CARY @ 04/23/2019 06:22 PM I personally read this/these film(s) with this resident Normal [facility] Comment on above: Order Comment: , , = ========= , Ordering Provider - DEMAR COOMBS MD , MRI CARDIAC WITH AND WITHOUT CONTRASTon 04-22-2019 MRI CARDIAC WITH AND WITHOUT CONTRAST [facility] Department of Radiology [address] [place] [address] Patient Name: KEYONA ATKINS : 2000 Sex: F Age: Race: White Pt. 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 Electronically signed by:Radha Orozco. Transcribed by: [email or web address], User Resident: Electronically Signed by: RADHA OROZCO @ 04/23/2019 01:10 PM Normal [facility] Comment on above: Order Comment: , [...] Thomas MD on 10/10/2018 12:02 PM Normal [facility] Estradiol, E2on 09-25-2018 Estradiol, E2 Normal [facility] Comment on above: Result Comment: <10 Unit: [...] year earlier in obese girls and in -Grenadian girls. Progression through Cyrus stages is variable. Cyrus stage V (adult) should be reached by age 18. ADDITIONAL INFORMATION This test was developed and its performance characteristics determined by [facility] in a manner consistent with CLIA requirements. This test has not been cleared or approved by the U.S. Food and Drug Administration. Performed at [facility] [address], [address] [place], [place] [address] Anti TPO ABon 09-24-2018 Anti TPO AB 2884 IU/mL High <35 [facility] FSHon 09-24-2018 FSH 55.73 mIU/mL Normal [facility] Comment on above: Result Comment: (NOTE) FSH [...] 0.8-7.0 LHon 09-24-2018 LH 13.07 mIU/mL Normal [facility] Comment on above: Result Comment: (NOTE) LH [...] 0.2-5.8 Thyroglobulin Antibodyon Thyroglobulin Antibody 13.3 High [facility] Comment on above: Result Comment: Refe rence range: 0.0 to 4.0 Unit: IU/mL (NOTE) INTERPRETIVE INFORMATION: Thyroglobulin Antibody A value of 4.0 IU/mL or less indicates a negative result for thyroglobulin antibodies. The Thyroglobulin Antibody assay is being performed using the Michael M[employer] Access DxI method. Performed [place] [address] [email or web address], Yobany Srivastava MD, Lab. [place] [address] Performed By: #### X THYRG #### [place] [address] Comprehensive Metabolic Pane marlo 09-23-2018 Albumin [Mass/Vol] 4.5 g/dL Normal 3.4-5.2 [facility] ALP [Catalytic activity/Vol] 117 U/L High 54-96 [facility] ALT [Catalytic activity/Vol] 18 U/L Normal <40 [facility] AST [Catalytic activity/Vol] 22 U/L Normal 15-50 [facility] Bilirubin Ql (U) 0.2 mg/dL Normal 0.1-1.0 [facility] Calcium [Mass/Vol] 10.4 mg/dL Normal 8-10.5 [facility] Chloride [Moles/Vol] 107 mmol/L High 95-106 [facility] CO2 [Moles/Vol] 20 mmol/L Low 24-35 [facility] Creatinine [Mass/Vol] 0.46 mg/dL Low 0.5-0.8 [facility] Comment on above: Result Comment: Note : New reference intervals, effective July 09, 2018. Glucose [Mass/Vol] 122 mg/dL High 60-115 [facility] Potassium [Moles/Vol] 4.0 mmol/L Normal 3.7-5.3 [facility] Protein [Mass/Vol] 7.8 g/dL Normal 6.4-8.4 [facility] Sodium [Moles/Vol] 138 mmol/L Normal 135-145 [facility] Urea nitrogen [Mass/Vol] 12 mg/dL Normal 5-18 [facility] Free T4on 09-23-2018 Free T4 [Mass/Vol] 0.8 ng/dL Normal 0.7-2.1 [facility] Hemoglobin A1Con 09-23-2018 HbA1c (Bld) [Mass fraction] 5.2 % Normal 4.0-5.6 [facility] HbA1c (Bld) [Mass fraction] 103 mg/dL Normal [facility] Comment on above: Result Comment: The eAG is derived from the A1c result using a calculation from the Diabetes Control and Complication trial and reflects the average blood glucose over approximately the past 120 days, but weighted to the past 30 days. Lipid Profileon 09-23-2018 Cholesterol [Mass/Vol] 225 mg/dL High 95-195 [facility] Comment on above: Performed By: #### L IPP #### Performed at [address] [address] Cholesterol in HDL [Mass/Vol] 34 mg/dL Low 40-58 [facility] Comment on above: Performed By: #### L IPP #### Performed at [address] [address] Cholesterol in LDL [Mass/Vol] 113 mg/dL Normal 73-117 [facility] Comment on above: Performed By: #### L IPP #### Performed at [address] [address] Triglyceride [Mass/Vol] 390 mg/dL High 29-200 [facility] Comment on above: Performed By: #### L IPP #### Performed at [address] [address] VLDL Cholesterol 78 mg/dL High 6-20 [facility] Comment on above: Performed By: #### L IPP #### Performed at [address] [address] Hours Fasting Patient not fasting [facility] Comment on above: Performed By: #### L IPP #### Performed at [address] [address] TSHon 09-23-2018 TSH Qn 6.008 uIU/mL High 0.4-4.0 [facility] Vitamin D 25 Hydroxyon 09-23 Vitamin D 25 Hydroxy 20 ng/mL Low 30-[address] [facility] Comment on above: Result Comment: (NOTE) <20 considered deficient. 21-29 considered insufficient. Reference ranges are based on Endocrine Society criteria. CREATININE,SERUMon 8 Creatinine [Mass/Vol] Unable to calculat e GFR due to inappropriate age/gender/creatinin e value. Normal [facility] Comment on above: Performed By: #### C REAT #### Testing performed at [address] [address] Creatinine [Mass/Vol] 0.5 mg/dL Low 0.52-1.04 [facility] Comment on above: Performed By: #### C REAT #### Testing performed at [address] [address] [address] CHEST WITH CONTRASTon CT CHEST WITH [...] absence of the inferior vena cava. Normal [facility] IMPRESSION: 1. There is bovine configuration to [...] inferior vena cava. Invalid Interpretation Code RADIOLOGY M-LSTPAUTKU-TFR,IGAon 2017 TTG- IGA <2 Normal 0-3 [facility] Comment on above: Result Comment: (NOT E) Negative 0 - 3 Weak Positive 4 - 10 Positive >10 Tissue Transglutaminase (tTG) has been identified as the endomysial antigen. Studies have demonstr- ated that endomysial IgA antibodies have over 99% specificity for gluten sensitive enteropathy. PERFORMED AT [facility] Performed By: #### C MPF, TSH2, LIP2, T42, ACBC #### Testing performed at [address] [address] #### LTTG #### Testing performed at [facility] [address] [place] [address] [place] [address] 25 0H VITAMIN D LEVELon 06-13 25 0H VITAMIN D LEVEL 16.5 NG/ML Low >30 [facility] Comment on above: Result Comment: DEFICIENT <20 NG/ML INSUFFICIENT 20-<30 NG/ML SUFFICIENT 30-100 NG/ML POTENTIAL TOXICITY >100 NG/ML Performed By: #### V ITD #### Testing performed at [address] [address] CBCon 06-22-2018 ABSOLUTE BAS 0.0 X10 Normal [facility] Comment on above: Performed By: #### C MPF, TSH2, LIP2, T42, ACBC #### Testing performed at [address] [address] #### LTTG #### Testing performed at [place] [address] [place] [address] ABSOLUTE EOS 0.30 X10 Normal [facility] Comment on above: Performed By: #### C MPF, TSH2, LIP2, T42, ACBC #### Testing performed at [address] [address] #### LTTG #### Testing performed at [place] [address] [place] [address] ABSOLUTE NEUTROPHIL COUNT 3.0 x10 Normal 1.0-7.0 [facility] Comment on above: Performed By: #### C MPF, TSH2, LIP2, T42, ACBC #### Testing performed at [address] [address] #### LTTG #### Testing performed at [address] [place] [address] Basophils/100 WBC (Bld) 0.5 % Normal 0.0-2.0 [facility] Comment on above: Performed By: #### C MPF, TSH2, LIP2, T42, ACBC #### Testing performed at [address] [address] #### LTTG #### Testing performed at [address] [place] [address] DTYPE AUTO DIFF Normal [facility] Comment on above: Performed By: #### C MPF, TSH2, LIP2, T42, ACBC #### Testing performed at [address] [address] #### LTTG #### Testing performed at [address] [place] [address] Eosinophils/100 WBC (Bld) 4.8 % Normal 0.0-11.0 [facility] Comment on above: Performed By: #### C MPF, TSH2, LIP2, T42, ACBC #### Testing performed at [address] [address] #### LTTG #### Testing performed at [place] [address] [place] [address] Lymphocytes (Bld) [#/Vol] 1.50 X10 Normal [facility] Comment on above: Performed By: #### C MPF, TSH2, LIP2, T42, ACBC #### Testing performed at [address] [address] #### LTTG #### Testing performed at [place] [address] [place] [address] Lymphocytes/100 WBC (Bld) 29.0 % Normal 20.0-55.0 [facility] Comment on above: Performed By: #### C MPF, TSH2, LIP2, T42, ACBC #### Testing performed at [address] [address] #### LTTG #### Testing performed at [address] [place] [address] Monocytes (Bld) [#/Vol] 0.5 X10 Normal [facility] Comment on above: Performed By: #### C MPF, TSH2, LIP2, T42, ACBC #### Testing performed at [address] [address] #### LTTG #### Testing performed at [address] [place] [address] Monocytes/100 WBC (Bld) 9.6 % Normal 0.0-10.0 [facility] Comment on above: Performed By: #### C MPF, TSH2, LIP2, T42, ACBC #### Testing performed at [address] [address] #### LTTG #### Testing performed at [address] [place] [address] Neutrophils/100 WBC (Bld) 56.1 % Normal 37.0-75.0 [facility] Comment on above: Performed By: #### C MPF, TSH2, LIP2, T42, ACBC #### Testing performed at [address] [address] #### LTTG #### Testing performed at [address] [place] [address] Erythrocyte distribution width (RBC) [Ratio] 15.2 % High 11.5-14.5 [facility] Comment on above: Performed By: #### C MPF, TSH2, LIP2, T42, ACBC #### Testing performed at [address] [address] #### LTTG #### Testing performed at [address] [place] [address] Hematocrit (Bld) [Volume fraction] 37.0 % Normal 36.0-48.0 [facility] Comment on above: Performed By: #### C MPF, TSH2, LIP2, T42, ACBC #### Testing performed at [address] [address] #### LTTG #### Testing performed at [address] [address] Hemoglobin (Bld) [Mass/Vol] 12.1 g/dL Normal 12.0-16.0 [facility] Comment on above: Performed By: #### C MPF, TSH2, LIP2, T42, ACBC #### Testing performed at [address] [address] #### LTTG #### Testing performed at [address] [address] MCH (RBC) [Entitic mass] 28.1 pg Normal 26.0-35.0 [facility] Comment on above: Performed By: #### C MPF, TSH2, LIP2, T42, ACBC #### Testing performed at [address] [address] #### LTTG #### Testing performed at [address] [address] MCHC (RBC) [Mass/Vol] 32.7 g/dL Normal 27.0-37.0 [facility] Comment on above: Performed By: #### C MPF, TSH2, LIP2, T42, ACBC #### Testing performed at [address] [address] #### LTTG #### Testing performed at [address] [place] [address] MCV (RBC) [Entitic vol] 85.8 fL Normal 80.0-100.0 [facility] Comment on above: Performed By: #### C MPF, TSH2, LIP2, T42, ACBC #### Testing performed at [address] [address] #### LTTG #### Testing performed at [address] [place] [address] Platelet mean volume (Bld) [Entitic vol] 8.2 fL Normal 7.4-11.0 [facility] Comment on above: Performed By: #### C MPF, TSH2, LIP2, T42, ACBC #### Testing performed at [address] [address] #### LTTG #### Testing performed at [address] [place] [address] Platelets (Bld) [#/Vol] 194 /cmm Normal 130.0-400.0 [facility] Comment on above: Performed By: #### C MPF, TSH2, LIP2, T42, ACBC #### Testing performed at [address] [address] #### LTTG #### Testing performed at [address] [place] [address] RBC (Bld) [#/Vol] 4.32 /cmm Normal 4.0-5.4 [facility] Comment on above: Performed By: #### C MPF, TSH2, LIP2, T42, ACBC #### Testing performed at [address] [address] #### LTTG #### Testing performed at [address] [place] [address] WBC (Bld) [#/Vol] 5.3 /cmm Normal 3.6-13.0 [facility] Comment on above: Performed By: #### C MPF, TSH2, LIP2, T42, ACBC #### Testing performed at [address] [address] #### LTTG #### Testing performed at [place] [address] [place] [address] CMP FASTINGon 06-22-2018 Calcium [Mass/Vol] 10.0 mg/dL Normal 8.8-10.7 [facility] Comment on above: Performed By: #### C MPF, TSH2, LIP2, T42, ACBC #### Testing performed at [address] [address] #### LTTG #### Testing performed at [place] [address] [place] [address] Chloride [Moles/Vol] 104 mmol/L Normal 98-107 [facility] Comment on above: Performed By: #### C MPF, TSH2, LIP2, T42, ACBC #### Testing performed at [address] [address] #### LTTG #### Testing performed at [address] [place] [address] CO2 [Moles/Vol] 21 mmol/L Low 22-30 [facility] Comment on above: Performed By: #### C MPF, TSH2, LIP2, T42, ACBC #### Testing performed at [address] [address] #### LTTG #### Testing performed at [address] [place] [address] Glucose [Mass/Vol] 95 mg/dL Normal 70-100 [facility] Comment on above: Result Comment: NORMAL <100 mg/dL PREDIABETES 101-126 mg/dL DIABETES 126 mg/dL or higher Performed By: #### C MPF, TSH2, LIP2, T42, ACBC #### Testing performed at [address] [address] #### LTTG #### Testing performed at [address] [place] [address] Potassium [Moles/Vol] 4.0 mmol/L Normal 3.5-5.1 [facility] Comment on above: Performed By: #### C MPF, TSH2, LIP2, T42, ACBC #### Testing performed at [address] [address] #### LTTG #### Testing performed at [address] [place] [address] Sodium [Moles/Vol] 137 mmol/L Normal 136-145 [facility] Comment on above: Performed By: #### C MPF, TSH2, LIP2, T42, ACBC #### Testing performed at [address] [address] #### LTTG #### Testing performed at [address] [address] A:G RATIO 1.4 RATIO Normal 1.3-2.2 [facility] Comment on above: Performed By: #### C MPF, TSH2, LIP2, T42, ACBC #### Testing performed at [address] [address] #### LTTG #### Testing performed at [address] [address] Albumin [Mass/Vol] 4.3 G/dl Normal 3.5-5.0 [facility] Comment on above: Performed By: #### C MPF, TSH2, LIP2, T42, ACBC #### Testing performed at [address] [address] #### LTTG #### Testing performed at [address] [address] ALP [Catalytic activity/Vol] 149 U/L High 38-126 [facility] Comment on above: Performed By: #### C MPF, TSH2, LIP2, T42, ACBC #### Testing performed at [address] [address] #### LTTG #### Testing performed at [address] [place] [address] ALT [Catalytic activity/Vol] 21 U/L Normal 14-54 [facility] Comment on above: Performed By: #### C MPF, TSH2, LIP2, T42, ACBC #### Testing performed at [address] [address] #### LTTG #### Testing performed at [address] [place] [address] AST [Catalytic activity/Vol] 23 U/L Normal 15-41 [facility] Comment on above: Performed By: #### C MPF, TSH2, LIP2, T42, ACBC #### Testing performed at [address] [address] #### LTTG #### Testing performed at [address] [address] Bilirubin [Mass/Vol] 0.6 mg/dL Normal 0.2-1.9 [facility] Comment on above: Performed By: #### C MPF, TSH2, LIP2, T42, ACBC #### Testing performed at [address] [address] #### LTTG #### Testing performed at [address] [address] Creatinine [Mass/Vol] 0.5 mg/dL Low 0.52-1.04 [facility] Comment on above: Performed By: #### C MPF, TSH2, LIP2, T42, ACBC #### Testing performed at [address] [address] #### LTTG #### Testing performed at [address] [address] GFR/1.73 sq M predicted among non-blacks MDRD (S/P/Bld) [Vol rate/Area] Unable to calculate GFR due to inappropriate age/gender/creatinin e value. Normal [facility] Comment on above: Performed By: #### C MPF, TSH2, LIP2, T42, ACBC #### Testing performed at [address] [address] #### LTTG #### Testing performed at [address] [place] [address] Protein [Mass/Vol] 7.4 g/dL Normal 6.3-8.6 [facility] Comment on above: Performed By: #### C MPF, TSH2, LIP2, T42, ACBC #### Testing performed at [address] [address] #### LTTG #### Testing performed at [address] [place] [address] Urea nitrogen [Mass/Vol] 10 mg/dL Normal 7-20 [facility] Comment on above: Performed By: #### C MPF, TSH2, LIP2, T42, ACBC #### Testing performed at [address] [address] #### LTTG #### Testing performed at [address] [place] [address] FREE T4on 06-22-2018 Free T4 [Mass/Vol] 0.68 ng/dL Low 0.93-1.60 [facility] Comment on above: Performed By: #### C MPF, TSH2, LIP2, T42, ACBC #### Testing performed at [address] [address] #### LTTG #### Testing performed at [address] [place] [address] HEMOGLOBIN A1Con 06-22-2018 HbA1c (Bld) [Mass fraction] 5.2 % Normal <6 [facility] Comment on above: Result Comment: NORMAL <5.7% PREDIABETES 5.7-6.4% DIABETES 6.5% OR HIGHER Performed By: #### H A1CT #### Testing performed at [address] [address] HbA1c (Bld) [Mass fraction] 103 mg/dL Normal [facility] Comment on above: Performed By: #### H A1CT #### Testing performed at [address] [address] LIPID PROFILEon 06-22-2018 Cholesterol [Mass/Vol] 234 mg/dL High 82-199 [facility] Comment on above: Performed By: #### C MPF, TSH2, LIP2, T42, ACBC #### Testing performed at [address] [address] #### LTTG #### Testing performed at [address] [place] [address] Cholesterol in HDL [Mass/Vol] 39 mg/dL Low 40-60 [facility] Comment on above: Performed By: #### C MPF, TSH2, LIP2, T42, ACBC #### Testing performed at [address] [address] #### LTTG #### Testing performed at [address] [place] [address] Cholesterol in LDL [Mass/Vol] 154 mg/dL High 0-100 [facility] Comment on above: Performed By: #### C MPF, TSH2, LIP2, T42, ACBC #### Testing performed at [address] [address] #### LTTG #### Testing performed at [address] [address] Cholesterol in VLDL [Mass/Vol] 41 mg/dL High 5.0-25.0 [facility] Comment on above: Performed By: #### C MPF, TSH2, LIP2, T42, ACBC #### Testing performed at [address] [address] #### LTTG #### Testing performed at [address] [address] Cholesterol.total/Cho lesterol in HDL [Mass ratio] 6.00 {ratio} Normal [facility] Comment on above: Result Comment: RISK TOTAL/HDL RATIO MEN WOMEN 1/2 AVERAGE 3.43 3.27 AVERAGE 4.97 4.44 2X AVERAGE 9.55 7.05 3X AVERAGE 23.99 11.04 Performed By: #### C MPF, TSH2, LIP2, T42, ACBC #### Testing performed at [address] [address] #### LTTG #### Testing performed at [facility] [place] [address] [place] [address] Triglyceride [Mass/Vol] 203 mg/dL High <150 [facility] Comment on above: Performed By: #### C MPF, TSH2, LIP2, T42, ACBC #### Testing performed at [address] [address] #### LTTG #### [facility] [place] [address] [place] [address] TSHon 06-22-2018 TSH Qn 5.424 uIU/ML Normal 0.36-5.80 [facility] Comment on above: Performed By: #### C MPF, TSH2, LIP2, T42, ACBC #### Testing performed at [address] [address] #### LTTG #### [facility] [place] [address] [place] [address] Vital Signs Date Time Vital Sign Value Performing Clinician Facility 01-16-2024 08:55-0400 Blood Pressure Location Arelis Lue [facility] 01-16-2024 08:55-0400 Body temperature 98.6 [degF] Arelis Lue [facility] 01-16-2024 08:55-0400 Diastolic blood pressure 84 mm[Hg] Arelis Lue [facility] 01-16-2024 08:55-0400 Heart rate 67 /min Arelis Lue [facility] 01-16-2024 08:55-0400 Systolic blood pressure 132 mm[Hg] Arelis Lue [facility] 10-02-2023 13:02-0500 Blood Pressure Location MARIA DE JESUS PACO [facility] 10-02-2023 13:02-0500 Diastolic blood pressure 69 mm[Hg] MARIA DE JESUS PACO [facility] 10-02-2023 13:02-0500 Heart rate 80 /min MARIA DE JESUS PACO [facility] 10-02-2023 13:02-0500 Respiratory rate 16 /min MARIA DE JESUS PACO [facility] 10-02-2023 13:02-0500 Systolic blood pressure 121 mm[Hg] MARIA DE JESUS PACO [facility] 03-14-2023 09:07-0400 Blood Pressure Location Arelis Lue [facility] 03-14-2023 09:07-0400 Diastolic blood pressure 87 mm[Hg] Arelis Lue [facility] 03-14-2023 09:07-0400 Heart rate 109 /min Arelis Lue [facility] 03-14-2023 09:07-0400 Respiratory rate 16 /min Arelis Lue [facility] 03-14-2023 09:07-0400 Systolic blood pressure 137 mm[Hg] Arelis Lue [facility] 10-27-2022 09:45-0400 Blood Pressure Location Arelis Lue [facility] 10-27-2022 09:45-0400 Diastolic blood pressure 74 mm[Hg] Arelis Lue [facility] 10-27-2022 09:45-0400 Heart rate 93 /min Arelis Lue [facility] 10-27-2022 09:45-0400 Systolic blood pressure 120 mm[Hg] Arelis Lue [facility] 10-04-2018 08:20-0500 BMI (Body Mass Index) 41.7 kg/m2 [facility] 10-04-2018 08:20-0500 BP Diastolic 78 mm[Hg] [facility] 10-04-2018 08:20-0500 BP Systolic 118 mm[Hg] [facility] 10-04-2018 08:20-0500 Height 148.6 cm [facility] 10-04-2018 08:20-0500 Pulse (Heart Rate) 83 /min [facility] 10-04-2018 08:20-0500 Pulse Oximetry 97 % [facility] 10-04-2018 08:20-0500 Respiratory Rate 16 /min [facility] 10-04-2018 08:20-0500 Weight 92.08 kg [facility] 09-05-2018 09:01-0500 BMI (Body Mass Index) 41.29 kg/m2 [facility] Work Phone: 09-05-2018 09:01-0500 Body Temperature 98.01 [degF] [facility] Work Phone: 09-05-2018 09:01-0500 BP Diastolic 78 mm[Hg] [facility] Work Phone: 09-05-2018 09:01-0500 BP Systolic 122 mm[Hg] [facility] Work Phone: 09-05-2018 09:01-0500 Height 148.6 cm [facility] Work Phone: 09-05-2018 09:01-0500 Pulse (Heart Rate) 96 /min [facility] Work Phone: 09-05-2018 09:01-0500 Pulse Oximetry 98 % [facility] Work Phone: 09-05-2018 09:01-0500 Respiratory Rate 16 /min [facility] Work Phone: 09-05-2018 09:01-0500 Weight 91.17 kg [facility] Work Phone: 07-12-2018 08:26-0500 BMI (Body Mass Index) 42.13 kg/m2 [facility] Work Phone: 07-12-2018 08:26-0500 BP Diastolic 82 mm[Hg] [facility] Work Phone: 07-12-2018 08:26-0500 BP Systolic 126 mm[Hg] [facility] Work Phone: 07-12-2018 08:26-0500 Height 147.[address] [facility] Work Phone: 07-12-2018 08:26-0500 Pulse (Heart Rate) 125 /min [facility] Work Phone: 07-12-2018 08:26-0500 Pulse Oximetry 97 % [facility] Work Phone: 07-12-2018 08:26-0500 Respiratory Rate 16 /min Hernesto Haque [facility] Work Phone: 07-12-2018 08:26-0500 Weight 91.44 kg Hernesto Haque [facility] Work Phone: Encounters Encounter Date Encounter Type Care Provider Facility Start: 10-07-2024 ambulatory MARIA DE JESUS ANTONIO Facili ty:[facility] Start: 07-23-2024 ambulatory Arelis Yip Facility:[facility] [place] [facility] Start: 01-23-2024 End: 01-24-2024 Pre-admission assessment Arelis Yip [facility] Start: 01-16-2024 End: 01-16-2024 ambulatory Arelis Yip Facility:[facility] Start: 01-16-2024 End: 01-16-2024 Patient encounter procedure Arelis Yip [facility] Start: 12-12-2023 End: 12-12-2023 ambulatory BARAK MABRY Facility:[facility] Start: 10-02-2023 End: 10-02-2023 ambulatory MARIA DE JESUS ANTONIO Facility:[facility] Start: 10-02-2023 End: 10-02-2023 Lab Drop off MARIA DE JESUS CL[facility]ERY [facility] Start: 10-02-2023 End: 10-02-2023 ambulatory MARIA DE JESUS E PACO Facility:[facility] Start: 10-02-2023 End: 10-02-2023 Patient encounter procedure MARIA DE JESUS [facility] Start: 09-19-2023 End: 09-19-2023 ambulatory Arelis Yip Facility:[facility] [place] Start: 09-19-2023 End: 09-19-2023 Patient encounter procedure Arelsi Yip [facility] Start: 07-03-2023 End: 07-04-2023 ambulatory CALITomi Ty TEJADAMATTHIEU Facility:[facility] Start: 03-14-2023 End: 03-14-2023 ambulatory Arelis Caroline Yip Facility:[facility] Start: 03-14-2023 End: 03-14-2023 Patient encounter procedure Arelis Yip [facility] Start: 11-13-2022 End: 11-13-[address] LIZ Avery Facility: Start: 11-13-2022 End: 11-13-2022 Patient encounter procedure Arelis Velazquez Edgarchris [facility] Start: 11-08-2022 End: 11-08-[address] ILIA COBB Facility:[facility] Start: 11-04-2022 Encounter for preprocedural cardiovascular examination ARELIS Preston EDGARChris . [facility] Start: 11-04-2022 Encounter for preprocedural laboratory examination ARELIS YIP . [facility] Start: 11-01-2022 End: 11-02-[address] ILIA COBB Facility:[facility] Start: 11-01-2022 End: 11-02-2022 Encounter for preprocedural cardiovascular examination DR ILIA COBB Facility:[facility] Start: 10-27-2022 End: 10-27-2022 Patient encounter procedure Arelis Velazquez Edgarchris [facility] Start: 08-26-2022 End: 08-27-[address] ILIA COBB Facility:[facility] Start: 11-29-2018 End: 11-29-2018 Refjonas Monson Work Phone: [facility] Start: 10-04-2018 End: 10-04-2018 Letter encounter Hernesto Haque Work Phone: [facility] Start: 10-04-2018 End: 10-04-2018 Office outpatient visit 25 minutes Hernesto Haque Work Phone: [facility] Comment on above: 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); Aortic arch anomaly; Chronic pulmonary hypertension; Essential hypertension, benign; Inappropriate sinus tachycardia; Mixed hyperlipidemia; Lymphedema; Obstructive sleep apnea Start: 09-12-2018 End: 09-12-2018 Patient encounter procedure LASHAECAROLE TREVINO [facility] Start: 09-12-2018 End: 09-12-2018 Office outpatient visit 15 minutes Lashae Hastings Work Phone: [facility] Comment on above: Excessive cerumen in left ear canal (Primary Dx); Abrasion of nose, initial encounter Start: 09-05-2018 End: 09-05-2018 Telephone encounter Ilia Monson Work Phone: [facility] Comment on above: Referral Start: 09-05-2018 Patient encounter procedure ILIA MONSON [facility] Start: 09-05-2018 End: 09-05-2018 Office outpatient visit 15 minutes Ilia Monson Work Phone: [facility] Comment on above: Umanzor's syndrome (P rimary Dx); Abnormal thyroid blood test; Mixed hyperlipidemia; Vitamin D deficiency Start: 08-30-2018 End: 08-30-2018 Letter encounter Hernesto Haque Work Phone: [facility] Start: 08-08-2018 End: 08-08-2018 Patient encounter procedure Hernesto Haque Work Phone: [facility] Comment on above: Arrived Start: 07-25-2018 End: 07-25-2018 Patient encounter procedure Hernesto Haque Work Phone: [facility] Comment on above: Pre-operative cardio vascular examination (Primary Dx) Start: 07-24-2018 End: 07-24-2018 Patient encounter procedure LASHAECAROLE TREVINO [facility] Start: 07-12-2018 End: 07-12-2018 Patient encounter procedure García Josephnski Work Phone: [facility] Start: 07-12-2018 End: 07-12-2018 Office outpatient new 60 minutes Hernesto Haque Work Phone: [facility] Comment on above: Umanzor's syndrome (P rimary Dx); Abnormality of aortic arch branch; Tachycardia, unspecified; Morbid obesity; Mixed hyperlipidemia; Obstructive sleep apnea; Lymphedema of right lower extremity Start: 06-28-2018 End: 06-28-2018 Patient encounter procedure Addi Peterson [facility] Comment on above: Other Start: 06-26-2018 End: 06-26-2018 Patient encounter procedure Addi Barrowiak [facility] Comment on above: Results Start: 06-20-2018 End: 06-20-2018 Patient encounter procedure LASHAE TREVINO [facility] Start: 06-06-2018 Patient encounter procedure [facility] Procedures Date Procedure Procedure Detail Performing Clinician [...] Detail Author Start: 06-22-2019 Thyrotropin Qn TSH [facility] Start: 04-13-2019 Influenza vaccination INFLUENZ A VACCINE (Season Ended) [facility] Start: 03-07-2019 End: 03-07-2019 Office Visit 03/07/2019 Office Visit Cardiovascular Medicine Hernesto Haque II, MD [address] [place] [address] [phone] [facility] Start: 03-05-2019 End: 03-05-2019 Ambulatory 03/05/2019 Office Visit Family Medicine Ilia Monson PA [address] [place] [address] [phone] [facility] Start: 12-11-2018 End: 12-11-2018 Office Visit 12/11/2018 Office Visit Otolaryngology Thao Torres MD [address] [address] [phone] [facility] Start: 10-04-2018 End: 10-04-2018 Ambulatory 10/04/2018 Office Visit Cardiovascular Medicine Hernesto Haque II, MD [address] [place] [address] [phone] [facility] Start: 09-28-2018 End: 06-28-2019 LIPID PANEL W CALCULATED LDL LIPID PANEL W CALCULATED LDL Routine Mixed hyperlipidemia Expected: 09/28/2018, Expires: 06/28/2019 [facility] Work Phone: Comment on above: Expected: 09/28/2018 , Expires: 06/28/2019 Start: 09-28-2018 End: 06-28-2019 VITAMIN D (25-HYDROXY,TOTAL) VITAMIN D (25-HYDROXY,TOTAL) Routine Vitamin D deficiency Expected: 09/28/2018, Expires: 06/28/2019 [facility] Work Phone: Comment on above: Expected: 09/28/2018 , Expires: 06/28/2019 Start: 09-05-2018 End: 09-05-2018 Ambulatory [facility] Start: 08-30-2018 End: 08-30-2018 Ambulatory 08/30/2018 Office Visit Cardiovascular Medicine Hernesto Haque II, MD [address] [place] [address] [phone] [facility] Start: 07-25-2018 End: 07-25-2019 CREATININE SERUM CREATININE SERUM Routine Pre-operative cardiovascular examination Expected: 07/25/2018, Expires: 07/25/2019 [facility] Work Phone: Comment on above: Expected: 07/25/2018 , Expires: 07/25/2019 Start: 07-15-2018 End: 06-28-2019 TSH W/FT4 REFLEX TSH W/FT4 REFLEX Routine Abnormal thyroid blood test Expected: 07/15/2018, Expires: 06/28/2019 [facility] Work Phone: Comment on above: Expected: 07/15/2018 , Expires: 06/28/2019 Start: 07-12-2018 End: 07-12-2019 CT of thorax with contrast CT CHEST WITH CONTRAST Routine 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 Expected: 07/12/2018, Expires: 07/12/2019 [facility] Work Phone: Comment on above: Expected: 07/12/2018 , Expires: 07/12/2019 Start: 07-12-2018 End: 07-12-2018 Ambulatory 07/12/2018 Office Visit Cardiovascular Medicine Hernesto Haque II, MD [address] [place] [address] [phone] [facility] Start: 04-13-2018 Influenza vaccination INFLUENZA VACC INE (#1) [facility] Work Phone: Start: 04-13-2018 Influenza vaccinatio n given SEQUENTIAL INFLUENZA VACCINE (#1) [facility] Start: 2017 Meningococcal conjug ate vaccination [facility] Work Phone: Start: 2016 Vaccination for mingo n papillomavirus [facility] Start: 2014 HIV screening HIV SCREENING DISCUSSION [facility] Work Phone: Start: 2014 Varicella vaccination O [facility] Work Phone: Start: 2012 Vaccination for mingo n papillomavirus HPV VACCINE ADOL (1 - Female 3-dose series) [facility] Work Phone: Start: 2008 DTAP/TDAP/TD VACCINE (1 - Tdap) DTAP/TDAP/TD VACCINE (1 - Tdap) [facility] Work Phone: Start: 2008 Tetanus, diphtheria and acellular pertussis vaccination DTAP VACCINES (1 - Tdap) [facility] Start: 2002 Hepatitis A immunization [facility] Work Phone: Start: 2002 Yilwupa-igmhs-jyeuyn a vaccination [facility] Work Phone: Start: 2001 Inactivated poliovir us vaccine (product) [facility] Work Phone: Start: 2001 Hepatitis B vaccination [facility] Work Phone: Start: 2001 Tetanus vaccination TETANUS EVERY 10 YR [facility] Ambulatory ECG WA ECG (OFFICE R EAD ONLY) Routine 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 Ordered: 07/12/2018 [facility] Work Phone: Comment on above: Ordered: 07/12/2018 Transthoracic echocardiography ECHOCARDIOGRAM Routine 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 Ordered: 07/12/2018 [facility] Work Phone: Comment on above: Ordered: 07/12/2018 Immunizations Immunization Date Immunization Notes Care Provider Fa cility 04-01-2021 SARS-CoV-2 (COVID-19 ) mRNA BNT-162b2 vax Arelis Yip [facility] 03-11-2021 SARS-CoV-2 (COVID-19 ) mRNA BNT-162b2 vax Arelis Lue [facility] 11-07-2019 HPV, unspecified formulation Arelis Lue [facility] 07-09-2019 HPV, unspecified formulation Arelis Lue [facility] 05-06-2019 HPV, unspecified formulation Arelis Lue [facility] 04-29-2019 hepatitis A vaccine, unspecified formulation Arelis Lue [facility] 04-29-2019 meningococcal ACWY vaccine, unspecified formulation Arelis Lue [facility] 04-10-2019 influenza virus vacc ine, unspecified formulation Arelis Lue [facility] 09-05-2013 hepatitis A vaccine, unspecified formulation Arelis Lue [facility] 09-05-2013 meningococcal ACWY vaccine, unspecified formulation Arelis Lue [facility] 09-05-2013 tetanus toxoid, redu oj diphtheria toxoid, and acellular pertussis vaccine, adsorbed Arelis Lue [facility] 03-22-2006 diphtheria, tetanus toxoids and acellular pertussis vaccine Arelis Lue [facility] 03-22-2006 measles, mumps and rubella virus vaccine Arelis Lue [facility] 03-22-2006 poliovirus vaccine, unspecified formulation Arelis Lue [facility] 07-20-2004 influenza, whole Arelis Lue [facility] 06-29-2003 influenza virus vacc ine, unspecified formulation Arelis Lue [facility] 05-28-2003 diphtheria, tetanus toxoids and acellular pertussis vaccine Arelis Lue [facility] 05-28-2003 measles, mumps and rubella virus vaccine Arelis Lue [facility] 02-10-2002 DTaP, unspecified formulation Arelis Lue [facility] 02-10-2002 Hib, unspecified formulation Arelis Lue [facility] 02-10-2002 poliovirus vaccine, unspecified formulation Arelis Lue [facility] 2001 DTaP, unspecified formulation Arelis Lue [facility] 2001 poliovirus vaccine, unspecified formulation Arelis Lue [facility] 2001 DTaP, unspecified formulation Arelis Lue [facility] 2001 poliovirus vaccine, unspecified formulation Arelis Lue [facility] Payers Date Payer Category Payer Unknown xxxxxxxxxxxx 1. [id number] 2001 Unknown [id number] 2.16.84 [id number] 2001 Unknown [id number] 2.16.84 [id number] 2001 Unknown [id number] 2.16.84 [id number] 2001 Unknown [id number] 2.16.84 [id number] 2001 Unknown [id number] 2.16.8 [id number] 2001 Unknown [id number] 2.16.8 [id number] 2001 Unknown [id number] 2.16.8 [id number] 2001 Unknown [id number] 2.16.8 [id number] 2001 Unknown [id number] 2.16.8 [id number] 2001 Unknown [id number] 2.16.8 [id number] 2001 Unknown [id number] 2.16.8 [id number] 2001 Unknown [id number] 2.16.8 [id number] 2001 Unknown [id number] 2.16.8 [id number] 1974 Unknown [id number] 2.16.8 [id number] 1974 Unknown [id number] 2.16.8 [id number] 1974 Unknown [id number] 2.16.8 [id number] 1959 Unknown [id number] Social History Date Type Detail Facility Start: 07-12-2018 End: 01-16-2024 Tobacco smoking status NHIS Never smoker [facility] Sex Assigned At Not on file [facility] Work Phone: Tobacco smoking status Never [facility] Sex Assigned At Female [facility] Functional Status Date Assessment Result Facility 01-16-2024 Functional Status N/A [facility] 10-02-2023 Functional Status N/A [facility] 03-14-2023 Functional Status N/A [facility] 10-27-2022 Functional Status N/A [facility] Clinical Notes 10-27-2022 to 01-16-2024 Note Date [...] provider. Document Revised: 12/08/2021 Document Reviewed: 12/08/2021 [employer] Patient Education 2022 [employer]. Follow Up Care 01/14/2024 11:04:14 With:Phi MTZ, PASQUALE Romo, URO Address: [address] [place] [address] [phone] When: Unknown [facility] 10-02-2023 Hospital Discharg e instructions Patient Education 10/02/2023 14:03:01 Kidney Stones, Tkbu-tr-Vmng Kidney Stones Kidney stones are rock-like masses [...] Follow these instructions at home: Medicines Take ggoz-vdo-oqytgac and prescription medicines only as told by [...] provider. Document Revised: 04/03/2022 Document Reviewed: 04/03/2022 [employer] Patient Education 2022 [employer]. Follow Up Care 09/19/2023 09:59:17 With:MARIA DE JESUS ANTONIO PA-C, URL Address: When:1 year [facility] 03-14-2023 Hospital Discharg e instructions Patient [...] include: ?8 oz (237 mL) of milk, yuivggh-ggeumbaipuic-ojgkt milk, and calcium-fortifiedfruit juice. Calcium-fortified means that [...] ?Spinach (cooked), rhubarb, beets, sweet potatoes, and Venezuelan chard. ?Peanuts. ?Potato chips, tongan fries, and baked potatoes with skin on. ?Nuts and nut products. ?Chocolate. If you regularly take a diuretic medicine, make sure to eat at least 1 or 2 servings of fruits or vegetables that are high in potassium each day. These include: ?Avocado. ?Banana. ?Knox, prune, carrot, or tomato juice. ?Baked potato. [...] magnesium, fish oil, or vitamin B6. Take rzda-lir-nyhvcws and prescription medicines only as told by [...] Casseroles. Pizza. Lasagna. Frozen meals. Potato chips. Luxembourgish fries. The items listed above may not [...] provider. Document Revised: 04/10/2022 Document Reviewed: 04/10/2022 [employer] Patient Education 2022 [employer]. Follow Up Care 11/13/2022 09:26:52 With:Arelis Yip MD, URL, URO Address: When:Within 6 Month(s) Comments:w/ KUB and RASHEEDA and 24 hr urine [facility] 03-14-2023 Hospital Discharg e instructions Follow Up Care 03/14/2023 09:44:41 With:Arelis Yip MD, PASQUALE, URO Address: [address] [place] [phone] When: Unknown [facility] 11-13-2022 Hospital Discharg e instructions Patient [...] include: ?Spinach. ?Rhubarb. ?Beets. ?Potato chips and tongan fries. ?Nuts. If you regularly take a diuretic medicine, make sure to eat at least 1 2 fruits or vegetables high in potassium each day. These include: ?Avocado. ?Banana. ?Knox, prune, carrot, or tomato juice. ?Baked potato. [...] Casseroles. Pizza. Lasagna. Frozen meals. Potato chips. Luxembourgish fries. Summary You can reduce your risk [...] 11/24/2011 Document Revised: 11/19/2019 Document Reviewed: 07/10/2017 [employer] Patient Education 2019 [employer]. 11/13/2022 09:24:55 [facility] - Cystoscopy with Stent [...] Up Care 11/10/2022 09:26:19 With:Arelis Yip Address: [address], [place] [phone] Business (1) [address] [place], [place] [address]char[address] [place], [address] [address] [phone] Business (1) When: Unknown Comments:Office to schedule follow up in 6-8 wks with renal US, KUB and 24 hr urine stone workup, labs [facility] 11-01-2022 Note EXAMINATION: XR CHES T 2 [...] authenticated by: DARIEL CHRISTINE Date: 2022-11-01 09:20 [facility] 10-27-2022 Hospital Discharg e instructions [...] include: ?Spinach. ?Rhubarb. ?Beets. ?Potato chips and tongan fries. ?Nuts. If you regularly take a diuretic medicine, make sure to eat at least 1 2 fruits or vegetables high in potassium each day. These include: ?Avocado. ?Banana. ?Knox, prune, carrot, or tomato juice. ?Baked potato. [...] Casseroles. Pizza. Lasagna. Frozen meals. Potato chips. Luxembourgish fries. Summary You can reduce your risk [...] 11/24/2011 Document Revised: 11/19/2019 Document Reviewed: 07/10/2017 [employer] Patient Education 2020 One [employer]. Follow Up Care 09/07/2022 10:54:19 With:Arelis Yip MD, URL, URO Address: When: Unknown [facility] Evaluation + Plan note No data available for this section [facility] Evaluation + Plan note Future Appointments Appointment Date:01/17/2023 08:45:00 AM Scheduled Provider:Arelis Yip MD Location:[facility] Appointment Type:URO Office Visit [facility] Evaluation + Plan note Future Appointments Appointment Date:09/19/2023 08:45:00 AM Scheduled Provider:Arelis Yip MD Location:[facility] Appointment Type:URO Office Visit Diagnostic Tests PendingUric Acid 03/14/23PTH Intact 03/14/23 [facility] Evaluation + Plan note Future Appointments Appointment Date:10/02/2023 12:40:00 PM Scheduled Provider:MARIA DE JESUS ANTONIO PA-C Location:[facility] Appointment Type:URO Office Visit [facility] Evaluation + Plan note Future Appointments Appointment Date:10/07/2024 09:00:00 AM Scheduled Provider:MARIA DE JESUS ANTONIO PA-C Location:[facility] Appointment Type:URO Office Visit [facility] Evaluation + Plan note Future Appointments Appointment Date:10/07/2024 09:00:00 AM Scheduled Provider:MARIA DE JESUS ANTONIO PA-C Location:[facility] Appointment Type:URO Office Visit Diagnostic Tests PendingUrine Culture 10/02/23 [facility] Evaluation + Plan note Future Appointments Appointment Date:01/23/2024 10:00:00 AM Scheduled Provider: Location:.[place] Appointment Type:PT Pelvic Floor/UI Eval () Appointment Date:07/23/2024 08:45:00 AM Scheduled Provider:Arelis Yip MD Location:[facility] Appointment Type:URO Office Visit [facility] Evaluation + Plan note Future Appointments Appointment Date:07/23/2024 08:45:00 AM Scheduled Provider:Arelis Yip MD Location:[facility] Appointment Type:URO [facility] Visit [facility] [facility] Discharge instructions No data available for this section [facility] Progress note No data available for this section [facility] Reason for Referral Status Reason Specialty Diagnoses / Procedures Referred By Contact Referred To Contact New 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 Procedures CT CHEST WITH CONTRAST WA CAT SCAN OF CHEST CONTRAST Hernesto Haque II, MD [address] [place] [address] Status Reason Specialty Diagnoses / Procedures Referred By Contact Referred To Contact New 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 Tuberculosis: no 37. Vasculitis: no 38. [employer]/OB: no 40. Obesity: yes 41. Sleep apnea: [...] as yet. Her mother reports that her professional nurse wants toput her on hormone replacement therapy. [...] potentially adverse cardiovascular effects, however he patient's professional nurse deems this to be necessary at this time. She will need to be watched closely. She is to return fora follow-up visit in 5 months. * Zoe rBooks - 10/04/2018 8:20 AM EST Chief Complaint [...] failed tympanoplasty approximately 2 years ago in [place]. 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 Procedures CT CHEST WITH CONTRAST WA CAT SCAN OF CHEST CONTRAST Hernesto Haque II, MD [address] [place] [address] Reason Comments Follow-up Reason Comments Referral Reason Comments Follow-up 1 month follow-up Tu rner Syndrome, FE Reason Comments Medication Refill INFORMATION SOURCE (unrecogn ized section and content) DATE CREATED AUTHOR 09/14/2018 [facility] DATE CREATED AUTHOR AUTHOR'S ORGANIZ ATION 04/28/2019 [facility] DATE CREATED AUTHOR AUTHOR'S ORGANIZ ATION 05/25/2019 [facility] DATE CREATED AUTHOR AUTHOR'S ORGANIZ ATION 05/25/2019 [facility] DATE CREATED AUTHOR AUTHOR'S ORGANIZ ATION 08/15/2019 [facility] DATE CREATED AUTHOR AUTHOR'S ORGANIZ ATION 04/08/2020 [facility] DATE CREATED AUTHOR AUTHOR'S ORGANIZ ATION 11/18/2022 [facility] DATE CREATED AUTHOR AUTHOR'S ORGANIZ ATION 12/20/2023 [facility] DATE CREATED AUTHOR AUTHOR'S ORGANIZ ATION 01/21/2024 [facility] Patient Care team informatio n (unrecognized section and content) Personnel Name: Ilia Cobb DO Address: Address: [address] [place] [address] Personnel Name: Ilia Cobb DO Address: Address: [address] [place], [place] [id number]- Personnel Name: Ilia Cobb DO Address: Address: [address] [place], [place] [address] Personnel Name: ILIA COBB DO Address: Address: [address] [place] [id number] Personnel Name: MIKAELA MARCH CNP Address: Address: [address] [place] [address] Personnel Name: MIKAELA MARCH CNP Address: Address: [address] [place] [address] Personnel Name: NONE, XXXX Address: Address: [facility] Personnel Name: NONE, XXXX Address: Address: [facility] FOR RECORDS PERTAINING TO PATIENTS WHO ARE [...] BE BASED ON THE PRIMARY CLINICAL RECORDS. [facility] [employer] [facility]. provides no warranty or guarantee of the accuracy or completeness of information in this document.
[2024-03-13 11:21] LABS: Hematocrit 35.8 % (36.0-48.0); Mean Corpuscular HGB Conc 33.5 g/dL (29.9-35.2); Mean Corpuscular Hemoglobin 30.4 pg (26.7-34.0); Mean Corpuscular Volume 90.6 fL (81.0-99.0); Mean Platelet Volume 9.7 fL (9.5-13.5); Platelet Count 111 10^3/uL (150-450); Red Blood Count 3.95 10^6/uL (4.20-5.40); White Blood Count 11.8 10^3/uL (4.0-11.0)
[2024-03-13] MEDS: 0.9 % SODIUM CHLORIDE 1,000 ML 999 ML IV ×2 (11:24→13:04)
[2024-03-13] MEDS: DIPHENHYDRAMINE HCL 50 MG/ML VIAL 25 MG IV (11:28)
[2024-03-13] MEDS: METOCLOPRAMIDE HCL 10 MG/2 ML VIAL IVP (11:29)
[2024-03-13] MEDS: MAGNESIUM SULFATE IN WATER 2 GM/50 ML PREMIX IV (11:31)
[2024-03-13 11:34] LABS: Anion Gap 15.7; BUN Creatinine Ratio 11.1; Calcium 10.1 mg/dL (8.5-10.1); Carbon Dioxide 24.6 mmol/L (21.0-32.0); Chloride 102 mmol/L (98-107); Estimated GFR (African America >60 (>=60); Estimated GFR (Non-African Ame >60 (>=60); Glucose 106 mg/dL (74-106); Potassium 4.3 mmol/L (3.5-5.1); Sodium 138 mmol/L (136-145)
[2024-03-13 11:39] LABS: HCG Qualitative NEGATIVE (NEGATIVE); Internal Control Within Normal Limits
[2024-03-13 11:49] LABS: Segmented Neut Absolute Manual 9.55 10^3/uL (1.4-6.5)
[2024-03-13 11:50] LABS: Band Neutrophils Absolute 1.4 10^3/uL (0.0-0.3); Lymphocytes Absolute Manual 0.35 10^3/uL (1.20-3.80); Monocytes Absolute Manual 0.47 10^3/uL (0.30-0.80)
[2024-03-13 11:51] LABS: Anisocytosis 1+
[2024-03-13] MEDS: KETOROLAC TROMETHAMINE 30 MG/ML VIAL 15 MG IVP (12:14)
[2024-03-13] MEDS: ACETAMINOPHEN 500 MG TABLET 1000 MG PO (12:38)
[2024-03-13 13:16] LABS: Lactate/Lactic Acid 2.3 mmol/L (0.4-2.0)
[2024-03-13 14:08] LABS: Bilirubin Urine NEGATIVE (NEGATIVE); Blood Urine NEGATIVE (NEGATIVE); Clarity Urine SL CLOUDY (CLEAR); Color Urine LT. YELLOW (YELLOW); Glucose Urine UA NEGATIVE (NEGATIVE); Ketones Urine NEGATIVE (NEGATIVE); Leukocyte Esterase Urine TRACE (NEGATIVE); Nitrite Urine NEGATIVE (NEGATIVE); Protein Urine NEGATIVE (NEG/TRACE); Urobilinogen Urine 0.2 EU/dL (0.2-1.0); pH Urine 8.5 (5.0-9.0)
[2024-03-13 14:12] LABS: Urine Microscopic Indicated YES
[2024-03-13 14:17] LABS: Amorphous Sediment Urine MANY; Bacteria Urine TRACE #/HPF (NONE SEEN); Cast Seen? NONE SEEN #/LPF (NONE SEEN); Crystals Seen? Seen #/HPF (None Seen); Mucus Urine TRACE (NONE SEEN); RBC Urine 0-2 #/HPF (0-2); Squamous Epithelial Cell Urine RARE #/LPF (NONE/RARE); Transitional Epi Cells Urine FEW #/LPF (NONE SEEN); WBC Urine 20-50 #/HPF (NONE SEEN)
[2024-03-13 14:18] LABS: Urine Culture Indicated YES
[2024-03-13] MEDS: VANCOMYCIN HCL 1,500 MG in 0.9 % SODIUM CHLORIDE 500 ML 250 MG IV (14:53)
--- NOTE | 2024-03-13 15:34 | ED_ITS ---
HPI HPI - General Adult General Chief complaint: Headache Stated complaint: HEADACHE, NAUSEA, LOWER EXTREMITY PAIN Time Seen by Provider: 03/13/24 10:48 Source: patient and family Mode of arrival: walk-in Limitations: no limitations History of Present Illness HPI narrative: 23-year-old female to the emergency department chief complaint of feeling generally unwell. Patient reports she has a history of migraines and developed a migraine today. She reports that she has had palpitations, nausea, fever, chills. She was seen in the emergency department last night for an infection on her right inner thigh. She was started on Bactrim and Keflex. Related Data Home Medications ?Medication ?Instructions ?Recorded ?Confirmed buspirone 10 mg tablet 10 mg PO BID 03/13/24 03/13/24 cholecalciferol (vitamin D3) 50 50 mcg PO QDAY 03/13/24 03/13/24 mcg (2,000 unit) tablet conj estrogen-medroxyprogesterone 1 tab PO QDAY 03/13/24 03/13/24 0.3 mg-1.5 mg tablet (Prempro) enalapril maleate 5 mg tablet 5 mg PO Q12H 03/13/24 03/13/24 fluticasone propionate 50 1 spray intranasal QDAY PRN 03/13/24 03/13/24 mcg/actuation nasal allergy symptoms spray,suspension levothyroxine 50 mcg tablet 50 mcg PO QAM 03/13/24 03/13/24 loratadine 10 mg tablet 10 mg PO QDAY 03/13/24 03/13/24 melatonin 3 mg tablet 6 mg PO .qhs 03/13/24 03/13/24 metoprolol succinate 25 mg 12.5 mg PO QDAY 03/13/24 03/13/24 tablet,extended release 24 hr montelukast 10 mg tablet 10 mg PO QAM 03/13/24 03/13/24 omega-3 fatty acids-fish oil 300 1 cap PO QDAY 03/13/24 03/13/24 mg-1,000 mg capsule sertraline 100 mg tablet 100 mg PO Q24H 03/13/24 03/13/24 Previous Rx's ?Medication ?Instructions ?Recorded cephalexin 500 mg capsule 500 mg PO QID 10 days #40 caps 03/13/24 ondansetron 4 mg disintegrating 4 mg PO Q6H PRN nausea and 03/13/24 tablet vomiting #20 tabs sulfamethoxazole 800 1 tab PO BID 10 days #20 tabs 03/13/24 mg-trimethoprim 160 mg tablet (Bactrim DS) Allergies Allergy/AdvReac Type Severity Reaction Status Date / Time No Known Drug Allergies Allergy Verified 03/13/24 03:38 Opioid HPI Opioid Management Most Recent Opioid Data: Last Pain Scale 2 04/29/23 20:02 Last MAR Pain Assessment 03/13/24 12:38 Review of Systems ROS Status of ROS 10 or more systems reviewed and unremark able except as noted in history and below [facility] Medical History (Updated 03/13/24 @ 15:41 by Adelso Adams MD) 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 GENERAL: Well developed, well appearing adult in no acute distress. NEURO: Alert and oriented. Moves all extremities. Face is symmetric and expressive. EYES: PERRL. No scleral icterus or conjunctival injection. No discharge. HENT: Normocephalic, atraumatic. Hearing is grossly intact. Nares grossly patent and without discharge. Mucous membranes moist. NECK: No JVD. Patient moves neck without restriction. CARDIO: Rhythm regular. Normal rate. No murmur, rub, or gallop. Pulses equal bilaterally in the upper and lower extremity. No lower extremity edema. PULM: Lungs clear to auscultation in all yu. No wheezes, rales, or rhonchi. No conversational dyspnea. No splinting, stridor, or accessory muscle use. GI/: Abdomen is soft and non-tender. Normoactive bowel sounds. EXTREMITIES: Symmetric muscle bulk. No joint swelling. No clubbing, cyanosis, or deformity. SKIN: Warm and dry. Normal turgor. No rash or lesions appreciated. Softball sized area of erythema with a small central nodule, no area of fluctuance to the right inner thigh. PSYCH: Mood, affect, and interaction is appropriate to the setting. Constitutional Vital Signs, click to edit/add: Last Vital Signs Temp 100.3 F 03/13/24 13:30 Pulse 117 H 03/13/24 15:00 Resp 22 H 03/13/24 15:00 BP 127/82 03/13/24 15:00 Pulse Ox 99 03/13/24 15:00 O2 Del Method Room Air 03/13/24 15:00 Course Vital Signs Vital signs: Vital Signs Temperature 100.0 F 03/13/24 10:43 Pulse Rate 129 H 03/13/24 10:43 Respiratory Rate 20 03/13/24 10:43 Blood Pressure 147/93 H 03/13/24 10:43 Pulse Oximetry 100 03/13/24 10:43 Oxygen Delivery Method Room Air 03/13/24 10:43 Temperature 100.3 F 03/13/24 13:30 Pulse Rate 117 H 03/13/24 15:00 Respiratory Rate 22 H 03/13/24 15:00 Blood Pressure 127/82 03/13/24 15:00 Pulse Oximetry 99 03/13/24 15:00 Oxygen Delivery Method Room Air 03/13/24 15:00 Medical Decision Making [facility] Narrative Medical decision making narrative: 23-year-old female to the emergency department chief complaint of feeling generally, infection of her thigh. Tachycardic, otherwise stable vitals. Fluids, labs, migraine cocktail ordered. She does have a lactic acidosis. She has a leukocytosis. She remains tachycardic. Cultures were added on. Her migraine did resolve with cocktail. Her tachycardia remained however. Vancomycin is ordered as empiric therapy for her cellulitis to her thigh. She was admitted for further treatment. Medical Records Medical records reviewed: Yes I reviewed the patient's medical records Lab Data Lab results reviewed: Yes I reviewed the patient's lab results Labs: Lab Results 03/13/24 03/13/24 03/13/24 Range/Units 11:11 13:40 14:41 WBC 11.8 H (4.0-11.0) 10^3/uL RBC 3.95 L (4.20-5.40) 10^6/uL Hgb 12.0 (12.0-16.0) g/dL Hct 35.8 L (36.0-48.0) % MCV 90.6 (81.0-99.0) fL MCH 30.4 (26.7-34.0) pg MCHC 33.5 (29.9-35.2) g/dL RDW 13.0 (11.0-15.0) % Plt Count 111 L (150-450) 10^3/uL MPV 9.7 (9.5-13.5) fL Seg Neuts % (Manual) 81.0 H (43.0-75.0) Band Neutrophils % 12.0 H (0-5) % Lymphocytes % (Manual) 3.0 L (20.5-60.0) % Monocytes % (Manual) 4.0 (1.7-12.0) % Eosinophils % (Manual) 0.0 L (0.9-7.0) % Basophils % (Manual) 0.0 L (0.2-2.0) % Neutrophils # (Manual) 9.55 H (1.4-6.5) 10^3/uL Band Neutrophils # 1.4 H (0.0-0.3) 10^3/uL Lymphocytes # (Manual) 0.35 L (1.20-3.80) 10^3/uL Monocytes # (Manual) 0.47 (0.30-0.80) 10^3/uL Eosinophils # (Manual) 0.00 (0.00-0.70) 10^3/uL Basophils # (Manual) 0.00 (0.00-0.10) 10^3/uL Anisocytosis 1+ Sodium 138 (136-145) mmol/L Potassium 4.3 (3.5-5.1) mmol/L Chloride 102 (98-107) mmol/L Carbon Dioxide 24.6 (21.0-32.0) mmol/L Anion Gap 15.7 BUN 7.0 (7.0-18.0) mg/dL Creatinine 0.63 (0.55-1.02) mg/dL Est GFR ( Amer) >60 (>=60) Est GFR (Non-Af Amer) >60 (>=60) BUN/Creatinine Ratio 11.1 Glucose 106 (74-106) mg/dL Lactate 2.3 H* 1.0 (0.4-2.0) mmol/L Calcium 10.1 (8.5-10.1) mg/dL Serum HCG, Qual Negative (NEGATIVE) Urine Color Lt. yellow (YELLOW) Urine Clarity Sl cloudy (CLEAR) Urine pH 8.5 (5.0-9.0) Ur Specific [place] 1.020 (1.005-1.025) Urine Protein Negative (NEG/TRACE) mg/dL Urine Glucose (UA) Negative (NEGATIVE) mg/dL Urine Ketones Negative (NEGATIVE) mg/dL Urine Occult Blood Negative (NEGATIVE) Urine Nitrite Negative (NEGATIVE) Urine Bilirubin Negative (NEGATIVE) Urine Urobilinogen 0.2 (0.2-1.0) EU/dL Ur Leukocyte Esterase Trace A (NEGATIVE) Urine RBC 0-2 (0-2) #/HPF Urine WBC 20-50 A (NONE SEEN) #/HPF Ur Squamous Epith Cells Rare (NONE/RARE) #/LPF Ur Transition Epith Cell Few A (NONE SEEN) #/LPF Urine Crystals Seen A (None Seen) #/HPF Amorphous Sediment Many Urine Bacteria Trace A (NONE SEEN) #/HPF Urine Casts None seen (NONE SEEN) #/LPF Urine Mucus Trace A (NONE SEEN) Ur Culture Indicated? Yes Discharge Plan Discharge Chief Complaint: Headache Clinical Impression: Cellulitis Patient Disposition: Admitted as Observation Time of Disposition Decision: 15:41 Condition: Fair Prescriptions / Home Meds: No Action sulfamethoxazole-trimethoprim [Bactrim DS] 800-160 mg tablet 1 tab PO BID 10 Days Qty: 20 0RF cephalexin 500 mg capsule 500 mg PO QID 10 Days Qty: 40 0RF ondansetron 4 mg tablet,disintegrating 4 mg PO Q6H PRN (Reason: nausea and vomiting) Qty: 20 0RF buspirone 10 mg tablet 10 mg PO BID cholecalciferol (vitamin D3) 50 mcg (2,000 unit) tablet 50 mcg PO QDAY Prempro 0.3-1.5 mg tablet 1 tab PO QDAY enalapril maleate 5 mg tablet 5 mg PO Q12H fluticasone propionate 50 mcg/actuation spray,suspension 1 spray INTRANASAL QDAY PRN (Reason: allergy symptoms) levothyroxine 50 mcg tablet 50 mcg PO QAM loratadine 10 mg tablet 10 mg PO QDAY melatonin 3 mg tablet 6 mg PO .qhs metoprolol succinate 25 mg tablet extended release 24 hr 12.5 mg PO QDAY montelukast 10 mg tablet 10 mg PO QAM omega-3 fatty acids-fish oil 300-1,000 mg capsule 1 cap PO QDAY sertraline 100 mg tablet 100 mg PO Q24H Print Language: Mauritanian Referrals: Physician,Non-Staff, MD [Primary Care Provider] - 1 week
[2024-03-13 15:52] LABS: TSH W/ REFLEX FT4 3.006 uIU/mL (0.358-3.740)
--- OUTSIDE RECORDS SUMMARY | 2024-03-13 16:02 | XMS_ITS | CCD ---
Author Organization [facility] CliniSynd Care Team Providers Care Manager Machine Name Role Phone Ilia Monson Unavailable ILIA [...] Care Provider Ilia Cobb Primary Care Physician [phone] REZA, DR YOO Primary Care Unavailable LUE [...] Attending Unavailable ILIA COBB Primary Care Physician [phone] MIKAELA MARCH Primary Care Physician BARAK MABRY Admitting Unavailable BARAK MABRY Attending Unavailable BARAK MABRY Admitting Unavailable NONE, XXXX Primary Care Physician Unavailab Arelis Gonzalez Attending Unavailable JOAQUIM MIKAELA Primary Care Unavailable Arelis Yip Attending Unavailable Arelis Yip Referring Unavailable Arelis Yip Attending Unavailable MARIA DE JESUS ANTONIO Attending Unavailable [facility], MIKAELA Primary Care Unavailable Arelis Yip Attending Unavailable SHAMWA, MIKAELA Primary Care Unavailable MARIA DE JESUS ANTONIO Attending Unavailable SHAMMO, MIKAELA Primary Care Unavailable MARIA DE JESUS ANTONIO Admitting Unavailable MARIA DE JESUS ANTONIO Attending Unavailable [facility], MIKAELA Primary Care Unavailable Medications Current [...] / neomycin 3.5 mg/ml / polymyxin b 73222 unt/ml otic suspension (8 sources) Aminoglycoside Antibacterial, Polymyxin-class Antibacterial, Corticosteroid Start: 06-06-2018 gaxztesh-xxtvyriid-pfzfuvoqo isone (CORTISPORIN) otic suspension Administer 4 drops into ears . 0 06/06/2018 Active Start: 06-06-2018 neomycin-polym yxin-hydrocortisone 3.5-12141-8 Suspension Indications: History of recurrent ear infection [...] Nausea/Vomiting, # 12 tab(s), Refills(s) 0, Pharmacy: [id number], 148, cm, 10/27/22 9:59:00 EDT, Height/Length Dosing, [...] deficiency] Chronic Other aftercare (1 source) Other prison (current) drug therapy; Translations: [OTH [employer] CURRENT DRUG THERAPY] Onset: 11-16-2022 Episodic Other [...] with eval prepped for scheduled eval. KK [facility] Screenson 01-17-2024 Screens [id number] #1.00TIFF [facility] Patient Educationon 01-16-20 24 Patient Education Obstetrics [...] provider. Document Revised: 12/08/2021 Document Reviewed: 12/08/2021 [employer] Patient Education ? 2022 [employer] [facility] Urology Office/Clinic Noteon 01-16-2024 Urology Office/Clinic Note [...] provided. -Practice Kegels -Referral [place] [facility] 2. Kidney stone (N20.0: Calculus of kidney) CT AP w/wo con 08/26/22 @[facility] [employer] stone 7.5 mm. [...] - (more content not included)... Normal [facility] Comment on above: Result Comment: Elec [...] have results. I faxed orders over to [facility] for RASHEEDA/KUB. Uric Acid and Citric [...] our call Pt seen KML on 10/02/23 [facility] C Urineon 10-05-2023 Bacteria identified Cx Nom [...] Locations R1: [facility], [address] [place] [address], [facility] , , [facility] Comment on above: Performed By: #### 2 [id number] ####[facility] [address] [place] [address] Lab Reportson 10-04-2023 Lab Reports [id number] 7#1.00TIFF [facility] Lab Reports [id number] #1.00TIFF [facility] Ambulatory Visit Summaryon 0 10-02-2023 Ambulatory Visit [...] DE JESUS Perez Where: [facility] Patient Educationon 10-02-19 Patient Education Urology Kidney [...] these instructions at home: Medicines ? Take ivoe-xoj-svztmig and prescription medicines only as told by [...] provider. Document Revised: 04/03/2022 Document Reviewed: 04/03/2022 [employer] Patient Education ? 2022 [employer] Normal [facility] URINALYSISOrdered By: Anne Taveras on 10-02-2023 [...] (Urine sed) [#/Area] 3-4 /HPF Normal 0-2/HPF [facility] UA Aut o SS Glucose Test strip (U) [Mass/Vol] Negative (10/02/23 1:55 PM) Normal Negative [facility] UA Auto SS Hemoglobin Ql (U) Negative (10/02/23 1:55 PM) Normal Negative [facility] UA Auto SS Ketones (U) [Mass/Vol] Negative (10/02/23 1:55 PM) Normal Negative [facility] UA Auto SS [place].plasma/Lithiu m.RBC (Bld) [Mass ratio] 0-3 /HPF Normal 0-3/HPF [facility] UA Auto SS Mucus Ql (Urine sed) Trace (10/02/23 1:55 PM) Normal [facility] UA Auto SS Nitrite Ql (U) Negative (10/02/23 1:55 PM) Normal Negative [facility] UA Auto SS pH (U) 6.5 *NA* (10/02/23 1:55 PM) Invalid Interpretation Code 5.0 - 9.0 [facility] UA Auto SS Protein (U) [Mass/Vol] Negative (10/02/23 1:55 PM) Normal Negative [facility] UA Auto SS Specific gravity (U) [Rel density] 1.020 *NA* (10/02/23 1:55 PM) Invalid Interpretation Code 1.005 - 1.030 [facility] UA Auto SS UA Spec Desc Random Urine (10/02/23 1:55 PM) Normal [facility] UA Auto SS Urobilinogen Qn (U) 0.7944355 {Mi'U}/dL Normal 0.0 - 1.0 EU/dL [facility] UA Auto SS WBC Auto Ql (U) Negative (10/02/23 1:55 PM) Normal Negative [facility] UA Auto SS WBC LM.HPF (Urine sed) [#/Area] 0-5 /HPF Normal 0-5/HPF [facility] UA Auto SS Urinalysison 10-02-2023 Bacteria LM Ql (Urine sed) 1+ /HPF Abnormal Trace [facility] Comment on above: Performed By: #### 1 [id number] ####[facility] [address] [place] [address] Bilirubin Ql (U) Negative Normal Negative [facility] Comment on above: Performed By: #### 1 [id number] ####[facility] [address] [place] [address] Calcium oxalate crystals LM Ql (Urine sed) Present Normal [facility] Comment on above: Performed By: #### 1 [id number] ####[facility] [address] [place] [address] Clarity (U) SL CLOUDY Invalid Interpretation Code [facility] Comment on above: Performed By: #### 1 [id number] ####[address] [address] Color (U) YELLOW Normal Yellow [facility] Comment on above: Performed By: #### 1 [id number] ####[address] [address] Epithelial cells.squamous LM.HPF (Urine sed) [#/Area] 3-4 Normal 0-[address] [facility] Comment on above: Performed By: #### 1 [id number] ####[address] [address] Glucose Test strip (U) [Mass/Vol] Negative Normal Negative [facility] Comment on above: Performed By: #### 1 [id number] ####[address] [address] Hemoglobin Ql (U) Negative Normal Negative [facility] Comment on above: Performed By: #### 1 [id number] ####[facility] [address] [place] [address] Ketones (U) [Mass/Vol] Negative Normal Negative [facility] Comment on above: Performed By: #### 1 [id number] ####[facility] [address] [place] [address] [place].plasma/Lithiu m.RBC (Bld) [Mass ratio] 0-3 Normal 0-3 [facility] Comment on above: Performed By: #### 1 [id number] ####[facility] [address] [place] [address] Mucus Ql (Urine sed) TRACE Normal [facility] Comment on above: Performed By: #### 1 [id number] ####[facility] [address] [place] [address] Nitrite Ql (U) Negative Normal Negative [facility] Comment on above: Performed By: #### 1 [id number] ####[address] [address] pH (U) 6.5 [pH] Invalid Interpretation Code 5.0-9.0 [facility] Comment on above: Performed By: #### 1 [id number] ####[address] [address] Protein (U) [Mass/Vol] Negative Normal Negative [facility] Comment on above: Performed By: #### 1 [id number] ####[address] [address] Specific gravity (U) [Rel density] 1.020 Invalid Interpretation Code 1.005-1.030 [facility] Comment on above: Performed By: #### 1 [id number] ####[address] [address] Type of Urine collection method Random Urine Normal [facility] Comment on above: Performed By: #### 1 [id number] ####[address] [address] Urobilinogen Qn (U) 0.2 {Mi'U}/dL Normal 0.0-1.0 [facility] Comment on above: Performed By: #### 1 [id number] ####[address] [address] WBC Auto Ql (U) Negative Normal Negative [facility] Comment on above: Performed By: #### 1 [id number] ####[address] [address] WBC LM.HPF (Urine sed) [#/Area] 0-5 Normal 0-5 [facility] Comment on above: Performed By: #### 1 [id number] ####[address] [place] [address] Urology Office/Clinic Noteon 10-02-2023 Urology Office/Clinic Note [...] E&M of Est. Patient Moderate 30-39 Min 63175 2. Renal cyst (N28.1: Cyst of kidney, acquired) simple cyst does not require additional monitoring Ordered: E&M of Est. Patient Moderate 30-39 Min 02184 Urnls Dip Stick Auto w/o Microscopy POC 98428 3. Gross hematuria (R31.0: Gross hematuria) UA [...] E&M of Est. Patient Moderate 30-39 Min 89987 Urinalysis Urine Culture Follow-up With When Contact Information MARIA DE JESUS ANTONIO PA-C, URL Within 1 year Additional Instructions: Patient Education Kidney Stones, Eiqq-rc-Opcn Problem List/Past Medical History Ongoing Asthma Deafness [...] 05/06/2019 Recorded mening (more content not included)... [facility] Comment on above: Result Comment: Elec tronically Signed By: MARIA DE JESUS ANTONIO PA-C\.radha\Date and Time Signed: 10/02/23 14:03 EST Provider Orderson 09-12-2023 Provider Orders [id number] #1.00OTGTIFF [facility] Reminderson 08-27-2023 Reminders - From: Kari Stanton To: LUCINDA - Katia Yip; Sent: 03/14/2023 09:53:04 EDT Show up: 08/19/2023 09:52:00 EST Subject: RASHEEDA/KUB/ PTH/Urice acid Due Date/Time: 08/19/2023 09:53:00 EST Reminder/Recall to be completed prior to patients 6m follow up with Dr Yip on 09/19/23 H duplicate message. [facility] RAD - MISCon 08-24-2023 RAD - MISC [id number] #1.00TIFF [facility] RAD - Ultrasound Reporton RAD - Ultrasound Report [id number] #1.00TIFF [facility] Lab Reportson 06-18-2023 Lab Reports [id number]# 1.00TIFF [facility] Provider [place] 06-15-2023 Provider Orders [id number] #1.00OTGTIFF [facility] Provider Orderson 06-04-2023 Provider Orders [id number] [facility] 03-30-2023 Lab Reports [id number] #1.00CD:127 [facility] Ambulatory Visit Summaryon 0 03-14-2023 Ambulatory Visit Summary KEYONA ATKINS :2000 Visit Date:03/14/2023 Ambulatory Visit Instructions Your Diagnosis Renal stone Gross hematuria Renal cyst Tests Performed Urnls Dip Stick Auto w/o Microscopy POC 16044 US Renal -- Results Pending -- XR [...] Arelis Yip MD Where: [facility] Formson 03-14-2023 Forms [id number] #1.00CD:127 [facility] Patient Educationon 03-14-20 Patient Education Nephrology Dietary [...] [place] chard. ? Peanuts. ? Potato chips, brazilian fries, and baked potatoes with skin on. ? Nuts and nut products. ? Chocolate. ? If you regularly take a diuretic medicine, make sure to eat at least 1 or 2 servings of fruits or vegetables that are high in potassium each day. These include: ? Avocado. ? Banana. ? [place], prune, carrot, or tomato juice. ? Baked [...] fish oil, or vitamin B6. ? Take hzud-ybj-ledmabd and prescription medicines only as told by your health care provider. These include supplements. What foods should I limit? Limit your in (more content not included)... Normal [facility] Urology Office/Clinic Noteon 03-14-2023 Urology Office/Clinic Note Chief Complaint S/P Ureteroscopy RASHEEDA/KUB HPI Staff S/P Cysto/Lt RG/Laser Litho/Stone Extraction & Lt Stent Placement w/UD done11/08/22. Stent was then removed 11/13/22. Pt did go to [facility] following stent removal due to nausea [...] Procedure/Surgical H (more content not included)... Normal [facility] Comment on above: Result Comment: Elec tronically Signed By: Arelis Yip MD\.br\Date and Time Signed: 03/14/23 10:44 EDT\.br\Electronically Co-Signed By: Bethany March\.br\Date and Time Co-Signed: 03/14/23 10:04 EDT RAD - MISCon 01-23-2023 RAD - MISC [id number] #1.00CD:127 Normal [facility] RAD - Ultrasound Reporton RAD - Ultrasound Report [id number]# 1.00CD:127 Normal [facility] CALCULI, URINARYon 3 2,8 Dihydroxyadenine Normal [facility] Comment on above: Performed By: #### C ALCULI #### [facility] [address] [address] [address] Graciela Paz Ammonium Acid Urate Normal [facility] Comment on above: Performed By: #### C ALCULI #### [facility] [address] [address] [address] Graciela Paz Bilirubin Ql (U) Normal [facility] Comment on above: Performed By: #### C ALCULI #### [facility] [address] [address] [address] Graciela Paz Ca Oxalate Dihydrate 90 % Normal [facility] Comment on above: Performed By: #### C ALCULI #### [facility] [address] [address] [address] Graciela Paz CaHPO4 (Brushite) Normal [facility] Comment on above: Performed By: #### C ALCULI #### [facility] [address] [address] [address] Graciela Paz Calcium Bilirubinate Normal [facility] Comment on above: Performed By: #### C ALCULI #### [facility] [address] [address] [address] Graciela Paz Calcium Carbonate Normal [facility] Comment on above: Performed By: #### C ALCULI #### [facility] [address] [address] [address] Graciela Paz Calcium Oxalate Monohydrate 5 % [facility] Comment on above: Performed By: #### C ALCULI #### [facility] [address] [address] [address] Graciela Paz Calcium Palmitate Normal [facility] Comment on above: Performed By: #### C ALCULI #### [facility] [address] [address] [address] Graciela Paz Calcium Phosphate [facility] Comment on above: Performed By: #### C ALCULI #### [facility] [address] [address] [address] Graciela Paz Calcium Stearate [facility] Comment on above: Performed By: #### C ALCULI #### [facility] [address] [address] [address] Graciela Paz Carbonate Apatite Normal [facility] Comment on above: Performed By: #### C ALCULI #### [facility] [address] [address] [address] Graciela Paz Cellular Material [facility] Comment on above: Performed By: #### C ALCULI #### [facility] [address] [address] [address] Graciela Paz Cholesterol [facility] Comment on above: Performed By: #### C ALCULI #### [facility] [address] [address] [address] Graciela Paz Color (U) [place]co Normal [facility] Comment on above: Performed By: #### C ALCULI #### [facility] [address] [address] [address] Graciela Paz Comment Comment Normal [facility] Comment on above: Result Comment: Calc ium phosphate (hydroxyl form) includes hydroxyapatite, amorphous calcium phosphate, and whitlockite. Hydroxyapatite is the most common of the calcium phosphate salts found in human kidney stones. Performed By: #### C ALCULI #### [facility] [address] [address] [address] Graciela Paz Result Comment: Calc ulus received wet. Wet calculi must be dried before analysis, which delays reporting of results. Leaving calculi wet (such as water, saline, blood, urine) may lead to changes in composition. Comment: Comment Normal [facility] Comment on above: Result Comment: Emily mullen questions regarding Calculi Analysis contact [facility] at: [phone]. Performed By: #### C ALCULI #### [facility] [address] [address] [address] Graciela Paz Composition Comment Normal [facility] Comment on above: Result Comment: Perc entage (Represents the % composition) Performed By: #### C ALCULI #### [facility] [address] [address] [address] Graciela Paz Cystine Normal [facility] Comment on above: Performed By: #### C ALCULI #### [facility] [address] [place] [address] Dr. Graciela Paz Disclaimer: Comment Normal [facility] Comment on above: Result Comment: This test was developed and its performance characteristics determined by [facility]. It has not been cleared or approved by the Food and Drug Administration. Performed By: #### C ALCULI #### [facility] [address] [address] [address] Graciela Paz Dried Blood [facility] Comment on above: Performed By: #### C ALCULI #### [facility] [address] [address] [address] Graciela Paz Drug or Metabolite Normal [facility] Comment on above: Performed By: #### C ALCULI #### [facility] [address] [address] [address] Graciela Paz Hydroxyapatite 5 % Normal [facility] Comment on above: Performed By: #### C ALCULI #### [facility] [address] [address] [address] Graciela Paz Mg NH4 PO4 (Struvite) [facility] Comment on above: Performed By: #### C ALCULI #### [facility] [address] [address] [address] Graciela Paz MgHPO4 (Newberyite) Normal [facility] Comment on above: Performed By: #### C ALCULI #### [facility] [address] [address] [address] Graciela Paz Other component(s) Normal [facility] Comment on above: Performed By: #### C ALCULI #### [facility] [address] [address] [address] Graciela Paz PDF . Normal [facility] Comment on above: Performed By: #### C ALCULI #### [facility] [address] [address] [address] Graciela Paz Photo Comment [facility] Comment on above: Result Comment: Phot ograph will follow under a separate cover Performed By: #### C ALCULI #### [facility] [address] [address] [address] Graciela Paz Please note: Comment Normal [facility] Comment on above: Result Comment: Calc rafal report will follow via computer, mail or underwear trimmer delivery. Performed By: #### C ALCULI #### [facility] [address] [address] [address] Graciela Paz Size 2x3 [facility] Comment on above: Result Comment: Mult iple pieces received. Dimensions of the largest piece reported. Performed By: #### C ALCULI #### [facility] [address] [address] [address] Graciela Paz Sodium Acid Urate Normal [facility] Comment on above: Performed By: #### C ALCULI #### [facility] [address] [address] [address] Graciela Paz Source Comment [facility] Comment on above: Result Comment: Left Kidney Performed By: #### C ALCULI #### [facility] [address] [place] [address] Dr. Graciela Paz Triamterene [facility] Comment on above: Performed By: #### C ALCULI #### [facility] [address] [place] [address] Dr. Graciela Paz Uric Acid [facility] Comment on above: Performed By: #### C ALCULI #### [facility] [address] [place] [address] Dr. Graciela Paz Uric Acid Dihydrate [facility] Comment on above: Performed By: #### C ALCULI #### [facility] [address] [place] [address] Dr. Graciela Paz Weight 58 mg [facility] Comment on above: Performed By: #### C ALCULI #### [facility] [address] [place] [address] Dr. Graciela Paz Xanthine [facility] Comment on above: Performed By: #### C ALCULI #### [facility] [address] [place] [address] Dr. Graciela Paz CBC AUTO DIFFon 11-13-2022 BASO # 0.1 103/ul Normal 0.0-0.1 [facility] Comment on above: Performed By: #### C BC #### [facility] [address] [place] [address] Dr. Graciela Paz Basophils/100 WBC (Bld) 0.8 % Normal 0.2-2.0 [facility] Comment on above: Performed By: #### C BC #### [facility] [address] [place] [address] Dr. Graciela Paz EO # 0.2 103/ul Normal 0.0-0.7 [facility] Comment on above: Performed By: #### C BC #### [facility] [address] [place] [address] Dr. Graciela Paz Eosinophils/100 WBC (Bld) 3.2 % Normal 0.9-7.0 [facility] Comment on above: Performed By: #### C BC #### [facility] [address] [place] [address] Dr. Graciela Paz Erythrocyte distribution width (RBC) [Ratio] 13.2 % Normal 11.0-15.0 [facility] Comment on above: Performed By: #### C BC #### [facility] [address] [place] [address] Dr. Graciela Paz Hematocrit (Bld) [Volume fraction] 37.3 % Normal 36.0-48.0 [facility] Comment on above: Performed By: #### C BC #### [facility] [address] [place] [address] Dr. Graciela Paz Hemoglobin (Bld) [Mass/Vol] 12.5 g/dL Normal 12.0-16.0 [facility] Comment on above: Performed By: #### C BC #### [facility] [address] [place] [address] Dr. Graciela Paz IG # 0.03 10e3/ul Normal 0.00-0.03 [facility] Comment on above: Performed By: #### C BC #### [facility] [address] [place] [address] Dr. Graciela Paz IG % 0.5 % Normal 0.0-0.5 [facility] Comment on above: Performed By: #### C BC #### [facility] [address] [place] [address] Dr. Graciela Paz LYMPH # 1.5 103/ul Normal 1.2-3.8 [facility] Comment on above: Performed By: #### C BC #### [facility] [address] [place] [address] Dr. Graciela Paz Lymphocytes/100 WBC (Bld) 23.7 % Normal 20.5-60.0 [facility] Comment on above: Performed By: #### C BC #### [facility] [address] [place] [address] Dr. Graciela Paz MANUAL DIFF REQ NO Normal [facility] Comment on above: Performed By: #### C BC #### [facility] [address] [address] [address] Graciela Paz MCH (RBC) [Entitic mass] 30.3 pg Normal 26.7-34.0 [facility] Comment on above: Performed By: #### C BC #### [facility] [address] [address] [address] Graciela Paz MCHC (RBC) [Mass/Vol] 33.5 g/dL Normal 29.9-35.2 [facility] Comment on above: Performed By: #### C BC #### [facility] [address] [address] [address] Graciela Paz MCV (RBC) [Entitic vol] 90.5 fL Normal 81.0-99.0 [facility] Comment on above: Performed By: #### C BC #### [facility] [address] [place] [address] Dr. Graciela Paz MONO # 0.6 103/ul Normal 0.3-0.8 [facility] Comment on above: Performed By: #### C BC #### [facility] [address] [place] [address] Dr. Graciela Paz Monocytes/100 WBC (Bld) 9.1 % Normal 1.7-12.0 [facility] Comment on above: Performed By: #### C BC #### [facility] [address] [place] [address] Dr. Graciela Paz NEUT # 4.1 103/ul Normal 1.4-6.5 [facility] Comment on above: Performed By: #### C BC #### [facility] [address] [place] [address] Dr. Graciela Paz Neutrophils/100 WBC (Bld) 62.7 % Normal 43.0-75.0 [facility] Comment on above: Performed By: #### C BC #### [facility] [address] [place] [address] Dr. Graciela Paz Platelet mean volume (Bld) [Entitic vol] 9.7 fL Normal 9.5-13.5 [facility] Comment on above: Performed By: #### C BC #### [facility] [address] [address] [address] Graciela Paz PLT 193 103/ul Normal 150-450 [facility] Comment on above: Performed By: #### C BC #### [facility] [address] [place] [address] Dr. Graciela Paz RBC 4.12 106/ul Critically low 4.20-5.40 [facility] Comment on above: Performed By: #### C BC #### [facility] [address] [place] [address] Dr. Graciela Paz WBC 6.5 103/ul Normal 4.0-11.0 [facility] Comment on above: Performed By: #### C BC #### [facility] [address] [place] [address] Dr. Graciela Paz ER URINE PROFILEon 3 Bilirubin Ql (U) SMALL Abnormal NEGATIVE [facility] Comment on above: Performed By: #### U MICRO, ERUR #### [facility] [address] [place] [address] Dr. Graciela Paz Clarity (U) CLOUDY Abnormal CLEAR [facility] Comment on above: Performed By: #### U MICRO, ERUR #### [facility] [address] [place] [address] Dr. Graciela Paz Color (U) DK. YELLOW Normal YELLOW [facility] Comment on above: Performed By: #### U MICRO, ERUR #### [facility] [address] [place] [address] Dr. Graciela Paz ERUAHD A micrscopic examination will be performed if indicated. Normal [facility] Comment on above: Performed By: #### U MICRO, ERUR #### [facility] [address] [place] [address] Dr. Graciela Paz Glucose Ql (U) Negative Normal NEGATIVE [facility] Comment on above: Performed By: #### U MICRO, ERUR #### [facility] [address] [place] [address] Dr. Graciela Paz Hemoglobin Ql (U) LARGE Abnormal NEGATIVE [facility] Comment on above: Performed By: #### U MICRO, ERUR #### [facility] [address] [place] [address] Dr. Graciela Paz Ketones Ql (U) TRACE Abnormal NEGATIVE [facility] Comment on above: Performed By: #### U MICRO, ERUR #### [facility] [address] [place] [address] Dr. Graciela Paz LEUKOCYTES TRACE Abnormal NEGATIVE [facility] Comment on above: Performed By: #### U MICRO, ERUR #### [facility] [address] [place] [address] Dr. Graciela Paz Nitrite Ql (U) Negative Normal NEGATIVE [facility] Comment on above: Performed By: #### U MICRO, ERUR #### [facility] [address] [place] [address] Dr. Graciela Paz pH (U) 6.5 [pH] Normal 5-9 [facility] Comment on above: Performed By: #### U MICRO, ERUR #### [facility] [address] [place] [address] Dr. Graciela Paz Protein (U) [Mass/Vol] 300 mg/dL Abnormal NEGATIVE/ TRACE [facility] Comment on above: Performed By: #### U MICRO, ERUR #### [facility] [address] [place] [address] Dr. Graciela Paz SPEC GRAVITY 1.030 Abnormal 1.005-<=1.025 [facility] Comment on above: Performed By: #### U MICRO, ERUR #### [facility] [address] [place] [address] Dr. Graciela Paz UR MICRO IND INDICATED Normal [facility] Comment on above: Performed By: #### U MICRO, ERUR #### [facility] [address] [place] [address] Dr. Graciela Paz Urobilinogen Qn (U) 0.2 {Mi'U}/dL Normal 0.2 - 1. 0 [facility] Comment on above: Performed By: #### U MICRO, ERUR #### [facility] [address] [address] [address] Graciela Paz PROF 14(COMP METB)on 023 Albumin [Mass/Vol] 4.4 g/dL Normal 3.4-5.0 [facility] Comment on above: Performed By: #### C MP #### [facility] [address] [address] [address] Graciela Paz Albumin/Globulin [Mass ratio] 1.2 {ratio} Normal [facility] Comment on above: Performed By: #### C MP #### [facility] [address] [place] [address] Dr. Graciela Paz ALP [Catalytic activity/Vol] 105 U/L Normal 46-116 [facility] Comment on above: Performed By: #### C MP #### [facility] [address] [place] [address] Dr. Graciela Paz ALT [Catalytic activity/Vol] 54 U/L Normal 14-59 [facility] Comment on above: Performed By: #### C MP #### [facility] [address] [place] [address] Dr. Graciela Paz Anion gap [Moles/Vol] 13.9 mmol/L Normal [facility] Comment on above: Performed By: #### C MP #### [facility] [address] [place] [address] Dr. Graciela Paz AST [Catalytic activity/Vol] 38 U/L Critically high 15-37 [facility] Comment on above: Performed By: #### C MP #### [facility] [address] [place] [address] Dr. Graciela Paz Bilirubin [Mass/Vol] 0.5 mg/dL Normal 0.2-1.0 [facility] Comment on above: Performed By: #### C MP #### [facility] [address] [place] [address] Dr. Graciela Paz Calcium [Mass/Vol] 10.9 mg/dL Critically high 8.5-10.1 [facility] Comment on above: Performed By: #### C MP #### [facility] [address] [address] [address] Graciela Paz Chloride [Moles/Vol] 103 mmol/L Normal 98-107 [facility] Comment on above: Performed By: #### C MP #### [facility] [address] [place] [address] Dr. Graciela Paz CO2 [Moles/Vol] 24.1 mmol/L Normal 21.0-32.0 [facility] Comment on above: Performed By: #### C MP #### [facility] [address] [place] [address] Dr. Graciela Paz Creatinine [Mass/Vol] 0.60 mg/dL Normal 0.55-1.02 [facility] Comment on above: Performed By: #### C MP #### [facility] [address] [place] [address] Dr. Graciela Paz EGFR-AF SALVADOREAN >60 Normal >=60 [facility] Comment on above: Performed By: #### C MP #### [facility] [address] [place] [address] Dr. Graciela Paz EGFR-NON AF SALVADOREAN >60 Normal >=60 [facility] Comment on above: Performed By: #### C MP #### [facility] [address] [place] [address] Dr. Graciela Paz Globulin (S) [Mass/Vol] 3.7 g/dL Normal [facility] Comment on above: Performed By: #### C MP #### [facility] [address] [place] [address] Dr. Graciela Paz Glucose [Mass/Vol] 111 mg/dL Critically high 74-106 [facility] Comment on above: Performed By: #### C MP #### [facility] [address] [place] [address] Dr. Graciela Paz Potassium [Moles/Vol] 4.0 mmol/L Normal 3.5-5.1 [facility] Comment on above: Performed By: #### C MP #### [facility] [address] [place] [address] Dr. Graciela Paz Protein [Mass/Vol] 8.1 g/dL Normal 6.4-8.2 [facility] Comment on above: Performed By: #### C MP #### [facility] [address] [place] [address] Dr. Graciela Paz Sodium [Moles/Vol] 137 mmol/L Normal 136-145 [facility] Comment on above: Performed By: #### C MP #### [facility] [address] [place] [address] Dr. Graciela Paz Urea nitrogen [Mass/Vol] 11.0 mg/dL Normal 7.0-18.0 [facility] Comment on above: Performed By: #### C MP #### [facility] [address] [place] [address] Dr. Graciela Paz Urea nitrogen/Creatinine [Mass ratio] 18.3 mg/mg Normal [facility] Comment on above: Performed By: #### C MP #### [facility] [address] [place] [address] Dr. Graciela Paz URINE MICROSCOPIC ONLYon BACTERIA NONE SEEN Normal NONE SEEN [facility] Comment on above: Performed By: #### U MICRO, ERUR #### [facility] [address] [place] [address] Dr. Graciela Paz Bacteria identified Cx Nom (U) NOT INDICATED Normal [facility] Comment on above: Performed By: #### U MICRO, ERUR #### [facility] [address] [place] [address] Dr. Graciela Paz CAST NONE SEEN Normal NONE SEEN [facility] Comment on above: Performed By: #### U MICRO, ERUR #### [facility] [address] [place] [address] Dr. Graciela Paz Crystals LM Nom (Urine sed) NONE SEEN Normal NONE SEEN [facility] Comment on above: Performed By: #### U MICRO, ERUR #### [facility] [address] [place] [address] Dr. Graciela Paz Epithelial cells LM Ql (Urine sed) RARE Normal NONE SEEN /RARE [facility] Comment on above: Performed By: #### U MICRO, ERUR #### [facility] [address] [place] [address] Dr. Graciela Paz MUCOUS NONE SEEN Normal NONE SEEN [facility] Comment on above: Performed By: #### U MICRO, ERUR #### [facility] [address] [place] [address] Dr. Graciela Paz RBC (U) [#/Vol] /uL Abnormal 0-2 [facility] Comment on above: Performed By: #### U MICRO, ERUR #### [facility] [address] [place] [address] Dr. Graciela Paz WBC 5-10 Abnormal NONE SEEN [facility] Comment on above: Performed By: #### U MICRO, ERUR #### [facility] [address] [place] [address] Dr. Graciela Paz PREG HCG QUALon 11-08-2022 , QUAL Negative Normal NEGATIVE [facility] Comment on above: Performed By: #### P REG #### [facility] [address] [place] [address] Dr. Graciela Paz CBC AUTO DIFFon 11-01-2022 BASO # 0.0 103/ul Normal 0.0-0.1 [facility] Comment on above: Performed By: #### C BC #### [facility] [address] [place] [address] Dr. Graciela Paz Basophils/100 WBC (Bld) 0.9 % Normal 0.2-2.0 [facility] Comment on above: Performed By: #### C BC #### [facility] [address] [place] [address] Dr. Graciela Paz EO # 0.3 103/ul Normal 0.0-0.7 [facility] Comment on above: Performed By: #### C BC #### [facility] [address] [place] [address] Dr. Graciela Paz Eosinophils/100 WBC (Bld) 5.9 % Normal 0.9-7.0 [facility] Comment on above: Performed By: #### C BC #### [facility] [address] [place] [address] Dr. Graciela Paz Erythrocyte distribution width (RBC) [Ratio] 13.0 % Normal 11.0-15.0 [facility] Comment on above: Performed By: #### C BC #### [facility] [address] [place] [address] Dr. Graciela Paz Hematocrit (Bld) [Volume fraction] 35.3 % Critically low 36.0-48.0 [facility] Comment on above: Performed By: #### C BC #### [facility] [address] [place] [address] Dr. Graciela Paz Hemoglobin (Bld) [Mass/Vol] 11.8 g/dL Critically low 12.0-16.0 [facility] Comment on above: Performed By: #### C BC #### [facility] [address] [place] [address] Dr. Graciela Paz IG # 0.01 10e3/ul Normal 0.00-0.03 [facility] Comment on above: Performed By: #### C BC #### [facility] [address] [place] [address] Dr. Graciela Paz IG % 0.2 % Normal 0.0-0.5 [facility] Comment on above: Performed By: #### C BC #### [facility] [address] [place] [address] Dr. Graciela Paz LYMPH # 1.3 103/ul Normal 1.2-3.8 [facility] Comment on above: Performed By: #### C BC #### [facility] [address] [place] [address] Dr. Graciela Paz Lymphocytes/100 WBC (Bld) 28.8 % Normal 20.5-60.0 [facility] Comment on above: Performed By: #### C BC #### [facility] [address] [place] [address] Dr. Graciela Paz MANUAL DIFF REQ NO Normal [facility] Comment on above: Performed By: #### C BC #### [facility] [address] [place] [address] Dr. Graciela Paz MCH (RBC) [Entitic mass] 30.0 pg Normal 26.7-34.0 [facility] Comment on above: Performed By: #### C BC #### [facility] [address] [place] [address] Dr. Graciela Paz MCHC (RBC) [Mass/Vol] 33.4 g/dL Normal 29.9-35.2 [facility] Comment on above: Performed By: #### C BC #### [facility] [address] [place] [address] Dr. Graciela Paz MCV (RBC) [Entitic vol] 89.8 fL Normal 81.0-99.0 [facility] Comment on above: Performed By: #### C BC #### [facility] [address] [place] [address] Dr. Graciela Paz MONO # 0.5 103/ul Normal 0.3-0.8 [facility] Comment on above: Performed By: #### C BC #### [facility] [address] [place] [address] Dr. Graciela Paz Monocytes/100 WBC (Bld) 10.3 % Normal 1.7-12.0 [facility] Comment on above: Performed By: #### C BC #### [facility] [address] [place] [address] Dr. Graciela Paz NEUT # 2.4 103/ul Normal 1.4-6.5 [facility] Comment on above: Performed By: #### C BC #### [facility] [address] [place] [address] Dr. Graciela Paz Neutrophils/100 WBC (Bld) 53.9 % Normal 43.0-75.0 [facility] Comment on above: Performed By: #### C BC #### [facility] [address] [place] [address] Dr. Graciela Paz Platelet mean volume (Bld) [Entitic vol] 9.2 fL Critically low 9.5-13.5 [facility] Comment on above: Performed By: #### C BC #### [facility] [address] [place] [address] Dr. Graciela Paz PLT 132 103/ul Critically low 150-450 [facility] Comment on above: Performed By: #### C BC #### [facility] [address] [place] [address] Dr. Graciela Paz RBC 3.93 106/ul Critically low 4.20-5.40 [facility] Comment on above: Performed By: #### C BC #### [facility] [address] [place] [address] Dr. Graciela Paz WBC 4.4 103/ul Normal 4.0-11.0 [facility] Comment on above: Performed By: #### C BC #### [facility] [address] [place] [address] Dr. Graciela Paz PROF CHEM 8 (BAS METB)on Anion gap [Moles/Vol] 12.8 mmol/L Normal [facility] Comment on above: Performed By: #### B MP #### [facility] [address] [place] [address] Dr. Graciela Paz Calcium [Mass/Vol] 10.1 mg/dL Normal 8.5-10.1 [facility] Comment on above: Performed By: #### B MP #### [facility] [address] [place] [address] Dr. Graciela Paz Chloride [Moles/Vol] 106 mmol/L Normal 98-107 [facility] Comment on above: Performed By: #### B MP #### [facility] [address] [place] [address] Dr. Graciela Paz CO2 [Moles/Vol] 25.2 mmol/L Normal 21.0-32.0 [facility] Comment on above: Performed By: #### B MP #### [facility] [address] [place] [address] Dr. Graciela Paz Creatinine [Mass/Vol] 0.44 mg/dL Critically low 0.55-1.02 [facility] Comment on above: Performed By: #### B MP #### [facility] [address] [place] [address] Dr. Graciela Paz EGFR-AF SALVADOREAN >60 Normal >=60 [facility] Comment on above: Performed By: #### B MP #### [facility] [address] [address] [address] Graciela Paz EGFR-NON AF SALVADOREAN >60 Normal >=60 [facility] Comment on above: Performed By: #### B MP #### [facility] [address] [address] [address] Graciela Paz Glucose [Mass/Vol] 96 mg/dL Normal 74-106 [facility] Comment on above: Performed By: #### B MP #### [facility] [address] [address] [address] Graciela Paz Potassium [Moles/Vol] 4.2 mmol/L Normal 3.5-5.1 [facility] Comment on above: Performed By: #### B MP #### [facility] [address] [address] [address] Graciela Paz Sodium [Moles/Vol] 140 mmol/L Normal 136-145 [facility] Comment on above: Performed By: #### B MP #### [facility] [address] [address] [address] Graciela Paz Urea nitrogen [Mass/Vol] 9.0 mg/dL Normal 7.0-18.0 [facility] Comment on above: Performed By: #### B MP #### [facility] [address] [address] [address] Graciela Paz Urea nitrogen/Creatinine [Mass ratio] 20.5 mg/mg Normal [facility] Comment on above: Performed By: #### B MP #### [facility] [address] [address] [address] Graciela Paz PROTIMEon 11-01-2022 INR Coag (PPP) [Relative time] 0.97 {INR} Normal [facility] Comment on above: Performed By: #### P T, PTT ####[facility] [address] [address]Dr. Graciela Paz INR GUIDELINES SEE BELOW Normal [facility] Comment on above: Result Comment: JONATHON RED INR: 2.0 - 3.0 CONDITIONS NOT LISTED BELOW 2.5 - 3.5 FOR PROSTHETIC HEART VALVE REPLACEMENT 2.5 - 3.5 RECURRENT THROMBOSIS Performed By: #### P T, PTT ####[facility] [address] [place], [place] [address]Xy. Graciela Paz PT Coag (PPP) [Time] 10.3 s Normal 9.0-11.6 [facility] Comment on above: Performed By: #### P T, PTT ####[facility] [address] [place], [place] [address]Wv. Graciela Paz PTTon 11-01-2022 aPTT Coag (Bld) [Time] 26.8 s Normal 22.3-36.2 [facility] Comment on above: Performed By: #### P T, PTT ####[facility] [id number] Graciela Paz CT ABD/PELV WO W CONon [...] by: KAYCE SANDS Date: 2022-08-28 15:34 Normal [facility] ESTRADIOLon 03-15-2020 ESTRADIOL 20 pg/mL Normal [facility] Comment on above: Result Comment: REF VALUES FOLLICULAR PHASE 20-144 MID CYCLE 64-357 LUTEAL PHASE 56-214 POSTMENOPAUSE < 32 PREPUBERTY < 20 FEMALE 10-18Y 8-110 MALE 10-18Y < 20 ADULT MALE < 40 Performed By: #### E STRA #### [facility] [address] [place] [address] FOLLICLE STIM. HORMONEon FOLLICLE STIM. HORMONE 72.5 IU/L Normal [facility] Comment on above: Result Comment: REF VALUES FOLLICULAR 2-12 MID-CYCLE 12-25 LUTEAL PHASE 2-12 MENOPAUSE 30-150 PREPUBERTY 50% ADULT ADULT MALE 2-10 INFANTS 0-1 Performed By: #### F SH #### [facility] [address] [place] [address] GGTon 03-15-2020 Gamma glutamyl transferase [Catalytic activity/Vol] 26 U/L Normal 5 - 55 [facility] Comment on above: Performed By: #### G GT #### [address] [id number] GLUCOSEon 03-15-2020 Glucose [Mass/Vol] 91 mg/dL Normal 74 - 99 [facility] [place] Comment on above: Performed By: #### G EDGAR #### [address] [id number] HEMOGLOBIN A1Con 03-15-2020 HbA1c (Bld) [Mass fraction] 5.3 % Normal [facility] Comment on above: Result Comment: Diag nosis of Diabetes-Adults Non-Diabetic: < or = 5.6% Increased risk for developing diabetes: 5.7-6.4% Diagnostic of diabetes: > or = 6.5% . Monitoring of Diabetes Age (y) Therapeutic Goal (%) Adults: >18 <7.0 Pediatrics: 13-18 <7.5 7-12 <8.0 0- 6 7.5-8.5 [employer]. Diabetes Care 33(S1), Aug 2009. Performed By: #### H BA1E #### [facility] [address] [place] [address] HbA1c (Bld) [Mass fraction] 105 MG/DL Normal [facility] Comment on above: Performed By: #### H BA1E #### [facility] [address] [place] [address] HEPATIC FUNCTION PANELon Albumin [Mass/Vol] 4.1 g/dL Normal 3.4 - 5.0 [facility] [place] Comment on above: Performed By: #### H EPFP #### [address] [id number] ALP [Catalytic activity/Vol] 113 U/L High 33 - 110 [facility] Comment on above: Performed By: #### H EPFP #### [address] [id number] ALT [Catalytic activity/Vol] 29 U/L Normal 7 - 45 [facility] Comment on above: Result Comment: Amy ents treated with Sulfasalazine may generate falsely decreased results for ALT. Performed By: #### H EPFP #### [address] [id number] AST [Catalytic activity/Vol] 24 U/L Normal 9 - 39 [facility] Comment on above: Performed By: #### H EPFP #### [address] [id number] Bilirubin [Mass/Vol] 0.4 mg/dL Normal 0.0 - 1.2 [facility] Comment on above: Performed By: #### H EPFP #### [address] [id number] Bilirubin.direct [Mass/Vol] 0.1 mg/dL Normal 0.0 - 0.3 [facility] Comment on above: Performed By: #### H EPFP #### [address] [id number] Protein [Mass/Vol] 6.9 g/dL Normal 6.4 - 8.2 [facility] [place] Comment on above: Performed By: #### H EPFP #### [address] [id number] LIPID PANEL (CORONARY RISK 2 )on 03-15-2020 Cholesterol [Mass/Vol] 203 mg/dL High 0 - 199 [facility] Comment on above: Result Comment: [...] dosing. Performed By: #### L IPID #### [address] [id number] Cholesterol in HDL [Mass/Vol] 32.0 mg/dL Abnormal [facility] Comment on above: Result Comment: . AGE VERY LOW LOW NORMAL HIGH 0-19 Y < 35 < 40 40-45 ---- 20-24 Y ---- < 40 >45 ---- >24 Y ---- < 40 40-60 >60 . Performed By: #### L IPID #### [address] [id number] Cholesterol in LDL [Mass/Vol] 130 mg/dL High 0 - 109 [facility] Comment on above: Result Comment: . NEAR BORD AGE DESIRABLE OPTIMAL HIGH HIGH VERY HIGH 0-19 Y 0 - 109 --- 110-129 >/= 130 ---- 20-24 Y 0 - 119 --- 120-159 >/= 160 ---- >24 Y 0 - 99 100-129 130-159 160-189 >/=190 . Performed By: #### L IPID #### [address] [id number] Cholesterol in VLDL [Mass/Vol] 41 mg/dL High 0 - 40 [facility] Comment on above: Performed By: #### L IPID #### [address] [id number] Cholesterol.total/Cho lesterol in HDL [Mass ratio] 6.3 {ratio} Abnormal [facility] Comment on above: Result Comment: REF VALUES DESIRABLE < 3.4 HIGH RISK > 5.0 Performed By: #### L IPID #### [address] [id number] NON-HDL CHOLESTEROL 171 mg/dL High 0 - 119 [facility] Comment on above: Result Comment: AGE DESIRABLE BORDERLINE HIGH HIGH VERY HIGH 0-19 Y 0 - 119 120 - 144 >/= 145 >/= 160 20-24 Y 0 - 149 150 - 189 >/= 190 ---- >24 Y 30 MG/DL ABOVE LDL CHOLESTEROL GOAL . Performed By: #### L IPID #### [address] [id number] Triglyceride [Mass/Vol] 206 mg/dL High 0 - 149 [facility] Comment on above: Result Comment: [...] dosing. Performed By: #### L IPID #### [address] [id number] LUTEINIZING HORMONEon 2019 LUTEINIZING HORMONE 29.3 IU/L Normal [facility] Comment on above: Result Comment: REF VALUES FOLLICULAR PHASE 1.9-12.5 MID-CYCLE 8.7-76.3 LUTEAL PHASE 0.5-16.9 POST MENOPAUSE 5.0-55.2 CHILDREN 0- 6.0 ADULT MALE 18-70 1.5- 9.3 ADULT MALE >70 3.1-34.6 Performed By: #### L H #### [facility] [address] [place] [address] THYROXINE,FREEon 03-15-2020 THYROXINE,FREE 0.80 ng/dL Normal 0.61 - 1.12 [facility] Comment on above: Result Comment: Thyr oxine Free testing is performed using different testing methodology at [facility] than at other [facility]. Direct [...] draw. Performed By: #### T 4FRE #### [address] [id number] TSHon 03-15-2020 TSH Qn 4.05 m[IU]/L High 0.44 - 3.98 [facility] Comment on above: Result Comment: TSH testing is performed using different testing methodology [facility] [place] than at other [facility]. Direct result comparisons should only be made within the same method. Performed By: #### T SH2 #### [address] [id number] TTG AB,IGAon 03-15-2020 TTG AB,IGA <1 Normal 0 - 14 [facility] Comment on above: Result Comment: Rachell ac disease is unlikely. False negative Tissue Transglutaminase Antibody, IgA results can occur in approximately 10% of patients with celiac disease, patients already adhering to a gluten-free diet, or patients with IgA deficiency. Performed By: #### H EPFP #### [address] [id number] MRA CHEST W WO CONTRASTon MRA CHEST W WO CONTRAST [facility] Department of Radiology [address] [place] [id number] Patient Name: KEYONA ATKINS : 2000 Sex: F Age: Race: White Pt. 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 Electronically signed by:Radha Orozco. Transcribed by: [email or web address], User Resident: Electronically Signed by: RADHA OROZCO @ 04/23/2019 01:10 PM Normal [facility] Comment on above: Order Comment: , , = ========= , Ordering Provider - DEMAR COOMBS MD , MRA HEAD WO CONTRASTon 04-22 MRA HEAD WO CONTRAST [facility] Department of Radiology [address] [place] [phone] Patient Name: KEYONA ATKINS : 2000 Sex: F Age: Race: White Pt. Location: Patient Status: D Ordered Date: 03/24/2019 3:30:00 PM Completed Date: 04/22/2019 12:59 PM Requesting Provider: DEMAR SCHUSTER Attending Provider: DEMAR SCHUSTER Report Copy To: MARIA DE JESUS CASTRO Signs & Symptoms: I10 Essential (primary) hypertension I10 History: [place], No FB per mother Sunday [place] auth # [id number] 03/28/19-04/27/19 [id number] *er Comments: , , , Ordering Provider [...] findings. Electronically signed by:Ayana Cary. Transcribed by: [email or web address], User Resident: BARAK FOREMAN Electronically Signed by: AYANA CARY @ 04/23/2019 06:22 PM I personally read this/these film(s) with this resident Normal [facility] Comment on above: Order Comment: , , = ========= , Ordering Provider - DEMAR COOMBS MD , MRI CARDIAC WITH AND WITHOUT CONTRASTon 04-22-2019 MRI CARDIAC WITH AND WITHOUT CONTRAST [facility] Department of Radiology [address] [place] [address] Patient Name: KEYONA ATKINS : 2000 Sex: F Age: Race: White Pt. 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 Electronically signed by:Radha Orozco. Transcribed by: [email or web address], User Resident: Electronically Signed by: RADHA OROZCO @ 04/23/2019 01:10 PM Normal [facility] Comment on above: Order Comment: , , [...] Thomas MD on 10/10/2018 12:02 PM Normal [facility] Estradiol, E2on 09-25-2018 Estradiol, E2 Normal [facility] Comment on above: Result Comment: <10 [...] year earlier in obese girls and in -Swiss girls. Progression through Cyrus stages is variable. Cyrus stage V (adult) should be reached by age 18. ADDITIONAL INFORMATION This test was developed and its performance characteristics determined by [facility] in a manner consistent with CLIA requirements. This test has not been cleared or approved by the U.S. Food and Drug Administration. Performed at [facility] [address], [address], [place] [address] Anti TPO ABon 09-24-2018 Anti TPO AB 2884 IU/mL High <35 [facility] FSHon 09-24-2018 FSH 55.73 mIU/mL Normal [facility] Comment on above: Result Comment: (NOTE) [...] 0.8-7.0 LHon 09-24-2018 LH 13.07 mIU/mL Normal [facility] Comment on above: Result Comment: (NOTE) [...] 0.2-5.8 Thyroglobulin Antibodyon Thyroglobulin Antibody 13.3 High [facility] Comment on above: Result Comment: Refe rence range: 0.0 to 4.0 Unit: IU/mL (NOTE) INTERPRETIVE INFORMATION: Thyroglobulin Antibody A value of 4.0 IU/mL or less indicates a negative result for thyroglobulin antibodies. The Thyroglobulin Antibody assay is being performed using the Michael Mandy Access DxI method. Performed [place] [address] [email or web address], Yobany Srivastava MD, Lab. [place] [address] Performed By: #### X THYRG #### [place] [address] Comprehensive Metabolic Pane marlo 09-23-2018 Albumin [Mass/Vol] 4.5 g/dL Normal 3.4-5.2 [facility] ALP [Catalytic activity/Vol] 117 U/L High 54-96 [facility] ALT [Catalytic activity/Vol] 18 U/L Normal <40 [facility] AST [Catalytic activity/Vol] 22 U/L Normal 15-50 [facility] Bilirubin Ql (U) 0.2 mg/dL Normal 0.1-1.0 [facility] Calcium [Mass/Vol] 10.4 mg/dL Normal 8-10.5 [facility] Chloride [Moles/Vol] 107 mmol/L High 95-106 [facility] CO2 [Moles/Vol] 20 mmol/L Low 24-35 [facility] Creatinine [Mass/Vol] 0.46 mg/dL Low 0.5-0.8 [facility] Comment on above: Result Comment: Note : New reference intervals, effective July 09, 2018. Glucose [Mass/Vol] 122 mg/dL High 60-115 [facility] Potassium [Moles/Vol] 4.0 mmol/L Normal 3.7-5.3 [facility] Protein [Mass/Vol] 7.8 g/dL Normal 6.4-8.4 [facility] Sodium [Moles/Vol] 138 mmol/L Normal 135-145 [facility] Urea nitrogen [Mass/Vol] 12 mg/dL Normal 5-18 [facility] Free T4on 09-23-2018 Free T4 [Mass/Vol] 0.8 ng/dL Normal 0.7-2.1 [facility] Hemoglobin A1Con 09-23-2018 HbA1c (Bld) [Mass fraction] 5.2 % Normal 4.0-5.6 [facility] HbA1c (Bld) [Mass fraction] 103 mg/dL Normal [facility] Comment on above: Result Comment: The eAG is derived from the A1c result using a calculation from the Diabetes Control and Complication trial and reflects the average blood glucose over approximately the past 120 days, but weighted to the past 30 days. Lipid Profileon 09-23-2018 Cholesterol [Mass/Vol] 225 mg/dL High 95-195 [facility] Comment on above: Performed By: #### L IPP #### Performed at [address] [address] Cholesterol in HDL [Mass/Vol] 34 mg/dL Low 40-58 [facility] Comment on above: Performed By: #### L IPP #### Performed at [address] [address] Cholesterol in LDL [Mass/Vol] 113 mg/dL Normal 73-117 [facility] Comment on above: Performed By: #### L IPP #### Performed at [address] [address] Triglyceride [Mass/Vol] 390 mg/dL High 29-200 [facility] Comment on above: Performed By: #### L IPP #### Performed at [address] [address] VLDL Cholesterol 78 mg/dL High 6-20 [facility] Comment on above: Performed By: #### L IPP #### Performed at [address] [address] Hours Fasting Patient not fasting [facility] Comment on above: Performed By: #### L IPP #### Performed at [address] [address] TSHon 09-23-2018 TSH Qn 6.008 uIU/mL High 0.4-4.0 [facility] Vitamin D 25 Hydroxyon 09-23 Vitamin D 25 Hydroxy 20 ng/mL Low 30-120 [facility] Comment on above: Result Comment: (NOTE) <20 considered deficient. 21-29 considered insufficient. Reference ranges are based on Endocrine Society criteria. CREATININE,SERUMon 8 Creatinine [Mass/Vol] Unable to calculat e GFR due to inappropriate age/gender/creatinin e value. Normal [facility] Comment on above: Performed By: #### C REAT #### Testing performed at [address] [address] Creatinine [Mass/Vol] 0.5 mg/dL Low 0.52-1.04 [facility] Comment on above: Performed By: #### C REAT #### Testing performed at [address] [address] [address] CHEST WITH CONTRASTon CT CHEST WITH [...] of the inferior vena cava. Normal [facility] IMPRESSION: 1. There is bovine configuration to [...] inferior vena cava. Invalid Interpretation Code RADIOLOGY V-EUDIBBISC-LAH,IGAon 2017 TTG- IGA <2 Normal 0-3 [facility] Comment on above: Result Comment: (NOT E) [...] LIP2, T42, ACBC #### Testing performed at [address] [address] #### LTTG #### Testing performed at [facility] [address] [place] [address] [place] [address] 25 0H VITAMIN D LEVELon 06-13 25 0H VITAMIN D LEVEL 16.5 NG/ML Low >30 [facility] Comment on above: Result Comment: DEFICIENT <20 NG/ML INSUFFICIENT 20-<30 NG/ML SUFFICIENT 30-100 NG/ML POTENTIAL TOXICITY >100 NG/ML Performed By: #### V ITD #### Testing performed at [address] [address] CBCon 06-22-2018 ABSOLUTE BAS 0.0 X10 Normal [facility] Comment on above: Performed By: #### C MPF, TSH2, LIP2, T42, ACBC #### Testing performed at [address] [address] #### LTTG #### Testing performed at [place] [address] [place] [address] ABSOLUTE EOS 0.30 X10 Normal [facility] Comment on above: Performed By: #### C MPF, TSH2, LIP2, T42, ACBC #### Testing performed at [address] [address] #### LTTG #### Testing performed at [place] [address] [place] [address] ABSOLUTE NEUTROPHIL COUNT 3.0 x10 Normal 1.0-7.0 [facility] Comment on above: Performed By: #### C MPF, TSH2, LIP2, T42, ACBC #### Testing performed at [address] [address] #### LTTG #### Testing performed at [address] [place] [address] Basophils/100 WBC (Bld) 0.5 % Normal 0.0-2.0 [facility] Comment on above: Performed By: #### C MPF, TSH2, LIP2, T42, ACBC #### Testing performed at [address] [address] #### LTTG #### Testing performed at [address] [place] [address] DTYPE AUTO DIFF Normal [facility] Comment on above: Performed By: #### C MPF, TSH2, LIP2, T42, ACBC #### Testing performed at [address] [address] #### LTTG #### Testing performed at [address] [place] [address] Eosinophils/100 WBC (Bld) 4.8 % Normal 0.0-11.0 [facility] Comment on above: Performed By: #### C MPF, TSH2, LIP2, T42, ACBC #### Testing performed at [address] [address] #### LTTG #### Testing performed at [place] [address] [place] [address] Lymphocytes (Bld) [#/Vol] 1.50 X10 Normal [facility] Comment on above: Performed By: #### C MPF, TSH2, LIP2, T42, ACBC #### Testing performed at [address] [address] #### LTTG #### Testing performed at [place] [address] [place] [address] Lymphocytes/100 WBC (Bld) 29.0 % Normal 20.0-55.0 [facility] Comment on above: Performed By: #### C MPF, TSH2, LIP2, T42, ACBC #### Testing performed at [address] [address] #### LTTG #### Testing performed at [address] [place] [address] Monocytes (Bld) [#/Vol] 0.5 X10 Normal [facility] Comment on above: Performed By: #### C MPF, TSH2, LIP2, T42, ACBC #### Testing performed at [address] [address] #### LTTG #### Testing performed at [address] [place] [address] Monocytes/100 WBC (Bld) 9.6 % Normal 0.0-10.0 [facility] Comment on above: Performed By: #### C MPF, TSH2, LIP2, T42, ACBC #### Testing performed at [address] [address] #### LTTG #### Testing performed at [address] [place] [address] Neutrophils/100 WBC (Bld) 56.1 % Normal 37.0-75.0 [facility] Comment on above: Performed By: #### C MPF, TSH2, LIP2, T42, ACBC #### Testing performed at [address] [address] #### LTTG #### Testing performed at [address] [place] [address] Erythrocyte distribution width (RBC) [Ratio] 15.2 % High 11.5-14.5 [facility] Comment on above: Performed By: #### C MPF, TSH2, LIP2, T42, ACBC #### Testing performed at [address] [address] #### LTTG #### Testing performed at [address] [place] [address] Hematocrit (Bld) [Volume fraction] 37.0 % Normal 36.0-48.0 [facility] Comment on above: Performed By: #### C MPF, TSH2, LIP2, T42, ACBC #### Testing performed at [address] [address] #### LTTG #### Testing performed at [address] [address] Hemoglobin (Bld) [Mass/Vol] 12.1 g/dL Normal 12.0-16.0 [facility] Comment on above: Performed By: #### C MPF, TSH2, LIP2, T42, ACBC #### Testing performed at [address] [address] #### LTTG #### Testing performed at [address] [address] MCH (RBC) [Entitic mass] 28.1 pg Normal 26.0-35.0 [facility] Comment on above: Performed By: #### C MPF, TSH2, LIP2, T42, ACBC #### Testing performed at [address] [address] #### LTTG #### Testing performed at [address] [address] MCHC (RBC) [Mass/Vol] 32.7 g/dL Normal 27.0-37.0 [facility] Comment on above: Performed By: #### C MPF, TSH2, LIP2, T42, ACBC #### Testing performed at [address] [address] #### LTTG #### Testing performed at [address] [place] [address] MCV (RBC) [Entitic vol] 85.8 fL Normal 80.0-100.0 [facility] Comment on above: Performed By: #### C MPF, TSH2, LIP2, T42, ACBC #### Testing performed at [address] [address] #### LTTG #### Testing performed at [address] [place] [address] Platelet mean volume (Bld) [Entitic vol] 8.2 fL Normal 7.4-11.0 [facility] Comment on above: Performed By: #### C MPF, TSH2, LIP2, T42, ACBC #### Testing performed at [address] [address] #### LTTG #### Testing performed at [address] [place] [address] Platelets (Bld) [#/Vol] 194 /cmm Normal 130.0-400.0 [facility] Comment on above: Performed By: #### C MPF, TSH2, LIP2, T42, ACBC #### Testing performed at [address] [address] #### LTTG #### Testing performed at [address] [place] [address] RBC (Bld) [#/Vol] 4.32 /cmm Normal 4.0-5.4 [facility] Comment on above: Performed By: #### C MPF, TSH2, LIP2, T42, ACBC #### Testing performed at [address] [address] #### LTTG #### Testing performed at [address] [place] [address] WBC (Bld) [#/Vol] 5.3 /cmm Normal 3.6-13.0 [facility] Comment on above: Performed By: #### C MPF, TSH2, LIP2, T42, ACBC #### Testing performed at [address] [address] #### LTTG #### Testing performed at [place] [address] [place] [address] CMP FASTINGon 06-22-2018 Calcium [Mass/Vol] 10.0 mg/dL Normal 8.8-10.7 [facility] Comment on above: Performed By: #### C MPF, TSH2, LIP2, T42, ACBC #### Testing performed at [address] [address] #### LTTG #### Testing performed at [place] [address] [place] [address] Chloride [Moles/Vol] 104 mmol/L Normal 98-107 [facility] Comment on above: Performed By: #### C MPF, TSH2, LIP2, T42, ACBC #### Testing performed at [address] [address] #### LTTG #### Testing performed at [address] [place] [address] CO2 [Moles/Vol] 21 mmol/L Low 22-30 [facility] Comment on above: Performed By: #### C MPF, TSH2, LIP2, T42, ACBC #### Testing performed at [address] [address] #### LTTG #### Testing performed at [address] [place] [address] Glucose [Mass/Vol] 95 mg/dL Normal 70-100 [facility] Comment on above: Result Comment: NORMAL <100 mg/dL PREDIABETES 101-126 mg/dL DIABETES 126 mg/dL or higher Performed By: #### C MPF, TSH2, LIP2, T42, ACBC #### Testing performed at [address] [address] #### LTTG #### Testing performed at [address] [place] [address] Potassium [Moles/Vol] 4.0 mmol/L Normal 3.5-5.1 [facility] Comment on above: Performed By: #### C MPF, TSH2, LIP2, T42, ACBC #### Testing performed at [address] [address] #### LTTG #### Testing performed at [address] [place] [address] Sodium [Moles/Vol] 137 mmol/L Normal 136-145 [facility] Comment on above: Performed By: #### C MPF, TSH2, LIP2, T42, ACBC #### Testing performed at [address] [address] #### LTTG #### Testing performed at [address] [address] A:G RATIO 1.4 RATIO Normal 1.3-2.2 [facility] Comment on above: Performed By: #### C MPF, TSH2, LIP2, T42, ACBC #### Testing performed at [address] [address] #### LTTG #### Testing performed at [address] [address] Albumin [Mass/Vol] 4.3 G/dl Normal 3.5-5.0 [facility] Comment on above: Performed By: #### C MPF, TSH2, LIP2, T42, ACBC #### Testing performed at [address] [address] #### LTTG #### Testing performed at [address] [address] ALP [Catalytic activity/Vol] 149 U/L High 38-126 [facility] Comment on above: Performed By: #### C MPF, TSH2, LIP2, T42, ACBC #### Testing performed at [address] [address] #### LTTG #### Testing performed at [address] [place] [address] ALT [Catalytic activity/Vol] 21 U/L Normal 14-54 [facility] Comment on above: Performed By: #### C MPF, TSH2, LIP2, T42, ACBC #### Testing performed at [address] [address] #### LTTG #### Testing performed at [address] [place] [address] AST [Catalytic activity/Vol] 23 U/L Normal 15-41 [facility] Comment on above: Performed By: #### C MPF, TSH2, LIP2, T42, ACBC #### Testing performed at [address] [address] #### LTTG #### Testing performed at [address] [address] Bilirubin [Mass/Vol] 0.6 mg/dL Normal 0.2-1.9 [facility] Comment on above: Performed By: #### C MPF, TSH2, LIP2, T42, ACBC #### Testing performed at [address] [address] #### LTTG #### Testing performed at [address] [address] Creatinine [Mass/Vol] 0.5 mg/dL Low 0.52-1.04 [facility] Comment on above: Performed By: #### C MPF, TSH2, LIP2, T42, ACBC #### Testing performed at [address] [address] #### LTTG #### Testing performed at [address] [address] GFR/1.73 sq M predicted among non-blacks MDRD (S/P/Bld) [Vol rate/Area] Unable to calculate GFR due to inappropriate age/gender/creatinin e value. Normal [facility] Comment on above: Performed By: #### C MPF, TSH2, LIP2, T42, ACBC #### Testing performed at [address] [address] #### LTTG #### Testing performed at [address] [place] [address] Protein [Mass/Vol] 7.4 g/dL Normal 6.3-8.6 [facility] Comment on above: Performed By: #### C MPF, TSH2, LIP2, T42, ACBC #### Testing performed at [address] [address] #### LTTG #### Testing performed at [address] [place] [address] Urea nitrogen [Mass/Vol] 10 mg/dL Normal 7-20 [facility] Comment on above: Performed By: #### C MPF, TSH2, LIP2, T42, ACBC #### Testing performed at [address] [address] #### LTTG #### Testing performed at [address] [place] [address] FREE T4on 06-22-2018 Free T4 [Mass/Vol] 0.68 ng/dL Low 0.93-1.60 [facility] Comment on above: Performed By: #### C MPF, TSH2, LIP2, T42, ACBC #### Testing performed at [address] [address] #### LTTG #### Testing performed at [address] [place] [address] HEMOGLOBIN A1Con 06-22-2018 HbA1c (Bld) [Mass fraction] 5.2 % Normal <6 [facility] Comment on above: Result Comment: NORMAL <5.7% PREDIABETES 5.7-6.4% DIABETES 6.5% OR HIGHER Performed By: #### H A1CT #### Testing performed at [address] [address] HbA1c (Bld) [Mass fraction] 103 mg/dL Normal [facility] Comment on above: Performed By: #### H A1CT #### Testing performed at [address] [address] LIPID PROFILEon 06-22-2018 Cholesterol [Mass/Vol] 234 mg/dL High 82-199 [facility] Comment on above: Performed By: #### C MPF, TSH2, LIP2, T42, ACBC #### Testing performed at [address] [address] #### LTTG #### Testing performed at [address] [place] [address] Cholesterol in HDL [Mass/Vol] 39 mg/dL Low 40-60 [facility] Comment on above: Performed By: #### C MPF, TSH2, LIP2, T42, ACBC #### Testing performed at [address] [address] #### LTTG #### Testing performed at [address] [place] [address] Cholesterol in LDL [Mass/Vol] 154 mg/dL High 0-100 [facility] Comment on above: Performed By: #### C MPF, TSH2, LIP2, T42, ACBC #### Testing performed at [address] [address] #### LTTG #### Testing performed at [address] [address] Cholesterol in VLDL [Mass/Vol] 41 mg/dL High 5.0-25.0 [facility] Comment on above: Performed By: #### C MPF, TSH2, LIP2, T42, ACBC #### Testing performed at [address] [address] #### LTTG #### Testing performed at [address] [address] Cholesterol.total/Cho lesterol in HDL [Mass ratio] 6.00 {ratio} Normal [facility] Comment on above: Result Comment: RISK TOTAL/HDL RATIO MEN WOMEN 1/2 AVERAGE 3.43 3.27 AVERAGE 4.97 4.44 2X AVERAGE 9.55 7.05 3X AVERAGE 23.99 11.04 Performed By: #### C MPF, TSH2, LIP2, T42, ACBC #### Testing performed at [address] [address] #### LTTG #### Testing performed at [facility] [place] [address] [place] [address] [place] [address] Triglyceride [Mass/Vol] 203 mg/dL High <150 [facility] Comment on above: Performed By: #### C MPF, TSH2, LIP2, T42, ACBC #### Testing performed at [address] [address] #### LTTG #### [facility] [place] [address] [place] [address] [place] [address] TSHon 06-22-2018 TSH Qn 5.424 uIU/ML Normal 0.36-5.80 [facility] Comment on above: Performed By: #### C MPF, TSH2, LIP2, T42, ACBC #### Testing performed at [address] [address] #### LTTG #### [facility] [place] [address] [place] [address] [place] [address] Vital Signs Date Time Vital Sign Value Performing Clinician Facility 01-16-2024 08:55-0400 Blood Pressure Location Arelis Lue [facility] 01-16-2024 08:55-0400 Body temperature 98.6 [degF] Arelis Lue [facility] 01-16-2024 08:55-0400 Diastolic blood pressure 84 mm[Hg] Arelis Lue [facility] 01-16-2024 08:55-0400 Heart rate 67 /min Arelis Lue [facility] 01-16-2024 08:55-0400 Systolic blood pressure 132 mm[Hg] Arelis Lue [facility] 10-02-2023 13:02-0500 Blood Pressure Location MARIA DE JESUS PACO [facility] 10-02-2023 13:02-0500 Diastolic blood pressure 69 mm[Hg] MARIA DE JESUS PACO [facility] 10-02-2023 13:02-0500 Heart rate 80 /min MARIA DE JESUS PACO [facility] 10-02-2023 13:02-0500 Respiratory rate 16 /min MARIA DE JESUS PACO [facility] 10-02-2023 13:02-0500 Systolic blood pressure 121 mm[Hg] MARIA DE JESUS PACO [facility] 03-14-2023 09:07-0400 Blood Pressure Location Arelis Lue [facility] 03-14-2023 09:07-0400 Diastolic blood pressure 87 mm[Hg] Arelis Lue [facility] 03-14-2023 09:07-0400 Heart rate 109 /min Arelis Lue [facility] 03-14-2023 09:07-0400 Respiratory rate 16 /min Arelis Lue [facility] 03-14-2023 09:07-0400 Systolic blood pressure 137 mm[Hg] Arelis Lue [facility] 10-27-2022 09:45-0400 Blood Pressure Location Arelis Lue [facility] 10-27-2022 09:45-0400 Diastolic blood pressure 74 mm[Hg] Arelis Lue [facility] 10-27-2022 09:45-0400 Heart rate 93 /min Arelis Lue [facility] 10-27-2022 09:45-0400 Systolic blood pressure 120 mm[Hg] Arelis Lue [facility] 10-04-2018 08:20-0500 BMI (Body Mass Index) 41.7 kg/m2 [facility] 10-04-2018 08:20-0500 BP Diastolic 78 mm[Hg] [facility] 10-04-2018 08:20-0500 BP Systolic 118 mm[Hg] [facility] 10-04-2018 08:20-[address] [facility] 10-04-2018 08:20-0500 Pulse (Heart Rate) 83 /min [facility] 10-04-2018 08:20-0500 Pulse Oximetry 97 % [facility] 10-04-2018 08:20-0500 Respiratory Rate 16 /min [facility] 10-04-2018 08:20-[address] [facility] 09-05-2018 09:01-0500 BMI (Body Mass Index) 41.29 kg/m2 [facility] Work Phone: 09-05-2018 09:01-0500 Body Temperature 98.01 [degF] [facility] Work Phone: 09-05-2018 09:01-0500 BP Diastolic 78 mm[Hg] [facility] Work Phone: 09-05-2018 09:01-0500 BP Systolic 122 mm[Hg] [facility] Work Phone: 09-05-2018 09:01-0500 Height 148.6 cm [facility] Work Phone: 09-05-2018 09:01-0500 Pulse (Heart Rate) 96 /min [facility] Work Phone: 09-05-2018 09:01-0500 Pulse Oximetry 98 % [facility] Work Phone: 09-05-2018 09:01-0500 Respiratory Rate 16 /min [facility] Work Phone: 09-05-2018 09:01-0500 Weight 91.17 kg [facility] Work Phone: 07-12-2018 08:26-0500 BMI (Body Mass Index) 42.13 kg/m2 [facility] Work Phone: 07-12-2018 08:26-0500 BP Diastolic 82 mm[Hg] [facility] Work Phone: 07-12-2018 08:26-0500 BP Systolic 126 mm[Hg] [facility] Work Phone: 07-12-2018 08:26-0500 Height 147.3 cm [facility] Work Phone: 07-12-2018 08:26-0500 Pulse (Heart Rate) 125 /min [facility] Work Phone: 07-12-2018 08:26-0500 Pulse Oximetry 97 % [facility] Work Phone: 07-12-2018 08:26-0500 Respiratory Rate 16 /min Hernesto Haque [facility] Work Phone: 07-12-2018 08:26-0500 Weight 91.44 kg Hernesto Haque [facility] Work Phone: Encounters Encounter Date Encounter Type Care Provider Facility Start: 10-07-2024 ambulatory MARIA DE JESUS ANTONIO Facili ty:[facility] Start: 07-23-2024 ambulatory Arelis Yip Facility:[facility] Start: 01-23-2024 End: 01-24-2024 Pre-admission assessment [facility] Start: 01-16-2024 End: 01-16-2024 ambulatory Arelis Yip Facility:[facility] Start: 01-16-2024 End: 01-16-2024 Patient encounter procedure [facility] Start: 12-12-2023 End: 12-12-2023 ambulatory BARAK MABRY Facility:[facility] Start: 10-02-2023 End: 10-02-2023 ambulatory MARIA DE JESUS ANTONIO [facility] Start: 10-02-2023 End: 10-02-2023 Lab Drop off [facility] Start: 10-02-2023 End: 10-02-2023 ambulatory MARIA DE JESUS E PACO Facility:[facility] Start: 10-02-2023 End: 10-02-2023 Patient encounter procedure [facility]IA DE [facility] Start: 09-19-2023 End: 09-19-2023 ambulatory Arelis Yip Facility:[facility] Start: 09-19-2023 End: 09-19-2023 Patient encounter procedure Arelis Yip [facility] Start: 07-03-2023 End: 07-04-2023 ambulatory CALITomi Ty TEJADAMATTHIEU Facility:[facility] Start: 03-14-2023 End: 03-14-2023 ambulatory Arelis Caroline Yip Facility:[facility] Start: 03-14-2023 End: 03-14-2023 Patient encounter procedure Arelis Yip [facility] Start: 11-13-2022 End: 11-13-[address] LIZ Avery Facility: Start: 11-13-2022 End: 11-13-2022 Patient encounter procedure Arelis Velazquez [facility] Start: 11-08-2022 End: 11-08-[address] ILIA COBB Facility:[facility] Start: 11-04-2022 Encounter for preprocedural cardiovascular examination ARELSI Preston EDGARChris . [facility] Start: 11-04-2022 Encounter for preprocedural laboratory examination ARELIS YIP . [facility] Start: 11-01-2022 End: 11-02-[address] ILIA COBB Facility:[facility] Start: 11-01-2022 End: 11-02-2022 Encounter for preprocedural cardiovascular examination DR ILIA COBB Facility:[facility] Start: 10-27-2022 End: 10-27-2022 Patient encounter procedure Arelis Velazquez [facility] Start: 08-26-2022 End: 08-27-[address] ILIA COBB Facility:[facility] Start: 11-29-2018 End: 11-29-2018 Refjonas Monson Work Phone: [facility] Start: 10-04-2018 End: 10-04-2018 Letter encounter Hernesto Haque Work Phone: [facility] Start: 10-04-2018 End: 10-04-2018 Office outpatient visit 25 minutes Hernesto Haque Work Phone: [facility] Comment on above: 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); Aortic arch anomaly; Chronic pulmonary hypertension; Essential hypertension, benign; Inappropriate sinus tachycardia; Mixed hyperlipidemia; Lymphedema; Obstructive sleep apnea Start: 09-12-2018 End: 09-12-2018 Patient encounter procedure LASHAECAROLE TREVINO [facility] Start: 09-12-2018 End: 09-12-2018 Office outpatient visit 15 minutes Lashae Hastings Work Phone: [facility] Comment on above: Excessive cerumen in left ear canal (Primary Dx); Abrasion of nose, initial encounter Start: 09-05-2018 End: 09-05-2018 Telephone encounter Ilia Monson Work Phone: [facility] Comment on above: Referral Start: 09-05-2018 Patient encounter procedure ILIA MONSON [facility] Start: 09-05-2018 End: 09-05-2018 Office outpatient visit 15 minutes Ilia Monson Work Phone: [facility] Comment on above: Umanzor's syndrome (P rimary Dx); Abnormal thyroid blood test; Mixed hyperlipidemia; Vitamin D deficiency Start: 08-30-2018 End: 08-30-2018 Letter encounter Hernesto Haque Work Phone: [facility] Start: 08-08-2018 End: 08-08-2018 Patient encounter procedure Hernesto Haque Work Phone: [facility] Comment on above: Arrived Start: 07-25-2018 End: 07-25-2018 Patient encounter procedure Hernesto Haque Work Phone: [facility] Comment on above: Pre-operative cardio vascular examination (Primary Dx) Start: 07-24-2018 End: 07-24-2018 Patient encounter procedure LASHAECAROLE TREVINO [facility] Start: 07-12-2018 End: 07-12-2018 Patient encounter procedure García Josephnski Work Phone: [facility] Start: 07-12-2018 End: 07-12-2018 Office outpatient new 60 minutes Hernesto Haque Work Phone: [facility] Comment on above: Umanzor's syndrome (P rimary Dx); Abnormality of aortic arch branch; Tachycardia, unspecified; Morbid obesity; Mixed hyperlipidemia; Obstructive sleep apnea; Lymphedema of right lower extremity Start: 06-28-2018 End: 06-28-2018 Patient encounter procedure Addi Peterson [facility] Comment on above: Other Start: 06-26-2018 End: 06-26-2018 Patient encounter procedure Addi Barrowiak [facility] Comment on above: Results Start: 06-20-2018 End: 06-20-2018 Patient encounter procedure LASHAE TREVINO [facility] Start: 06-06-2018 Patient encounter procedure [facility] Procedures Date Procedure Procedure Detail Performing [...] Detail Author Start: 06-22-2019 Thyrotropin Qn TSH [facility] Start: 04-13-2019 Influenza vaccination INFLUENZ A VACCINE (Season Ended) [facility] Start: 03-07-2019 End: 03-07-2019 Office Visit 03/07/2019 Office Visit Cardiovascular Medicine Hernesto Haque II, MD [address] [place] [address] [phone] [facility] Start: 03-05-2019 End: 03-05-2019 Ambulatory 03/05/2019 Office Visit Family Medicine Ilia Monson PA [address] [place] [address] [phone] [facility] Start: 12-11-2018 End: 12-11-2018 Office Visit 12/11/2018 Office Visit Otolaryngology Thao Torres MD [address] [address] [phone] [facility] Start: 10-04-2018 End: 10-04-2018 Ambulatory 10/04/2018 Office Visit Cardiovascular Medicine Hernesto Haque II, MD [address] [place] [address] [phone] [facility] Start: 09-28-2018 End: 06-28-2019 LIPID PANEL W CALCULATED LDL LIPID PANEL W CALCULATED LDL Routine Mixed hyperlipidemia Expected: 09/28/2018, Expires: 06/28/2019 [facility] Work Phone: Comment on above: Expected: 09/28/2018 , Expires: 06/28/2019 Start: 09-28-2018 End: 06-28-2019 VITAMIN D (25-HYDROXY,TOTAL) VITAMIN D (25-HYDROXY,TOTAL) Routine Vitamin D deficiency Expected: 09/28/2018, Expires: 06/28/2019 [facility] Work Phone: Comment on above: Expected: 09/28/2018 , Expires: 06/28/2019 Start: 09-05-2018 End: 09-05-2018 Ambulatory [facility] Start: 08-30-2018 End: 08-30-2018 Ambulatory 08/30/2018 Office Visit Cardiovascular Medicine Hernesto Haque II, MD [address] [place] [address] [phone] [facility] Start: 07-25-2018 End: 07-25-2019 CREATININE SERUM CREATININE SERUM Routine Pre-operative cardiovascular examination Expected: 07/25/2018, Expires: 07/25/2019 [facility] Work Phone: Comment on above: Expected: 07/25/2018 , Expires: 07/25/2019 Start: 07-15-2018 End: 06-28-2019 TSH W/FT4 REFLEX TSH W/FT4 REFLEX Routine Abnormal thyroid blood test Expected: 07/15/2018, Expires: 06/28/2019 [facility] Work Phone: Comment on above: Expected: 07/15/2018 , Expires: 06/28/2019 Start: 07-12-2018 End: 07-12-2019 CT of thorax with contrast CT CHEST WITH CONTRAST Routine 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 Expected: 07/12/2018, Expires: 07/12/2019 [facility] Work Phone: Comment on above: Expected: 07/12/2018 , Expires: 07/12/2019 Start: 07-12-2018 End: 07-12-2018 Ambulatory 07/12/2018 Office Visit Cardiovascular Medicine Hernesto Haque II, MD [address] [place] [address] [phone] [facility] Start: 04-13-2018 Influenza vaccination INFLUENZA VACC INE (#1) [facility] Work Phone: Start: 04-13-2018 Influenza vaccinatio n given SEQUENTIAL INFLUENZA VACCINE (#1) [facility] Start: 2017 Meningococcal conjug ate vaccination [facility] Work Phone: Start: 2016 Vaccination for mingo n papillomavirus [facility] Start: 2014 HIV screening HIV SCREENING DISCUSSION [facility] Work Phone: Start: 2014 Varicella vaccination O [facility] Work Phone: Start: 2012 Vaccination for mingo n papillomavirus HPV VACCINE ADOL (1 - Female 3-dose series) [facility] Work Phone: Start: 2008 DTAP/TDAP/TD VACCINE (1 - Tdap) DTAP/TDAP/TD VACCINE (1 - Tdap) [facility] Work Phone: Start: 2008 Tetanus, diphtheria and acellular pertussis vaccination DTAP VACCINES (1 - Tdap) [facility] Start: 2002 Hepatitis A immunization [facility] Work Phone: Start: 2002 Exlroou-imsuw-qmvdyq a vaccination [facility] Work Phone: Start: 2001 Inactivated poliovir us vaccine (product) [facility] Work Phone: Start: 2001 Hepatitis B vaccination [facility] Work Phone: Start: 2001 Tetanus vaccination TETANUS EVERY 10 YR [facility] Ambulatory ECG VT ECG (OFFICE R EAD ONLY) Routine 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 Ordered: 07/12/2018 [facility] Work Phone: Comment on above: Ordered: 07/12/2018 Transthoracic echocardiography ECHOCARDIOGRAM Routine 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 Ordered: 07/12/2018 [facility] Work Phone: Comment on above: Ordered: 07/12/2018 Immunizations Immunization Date Immunization Notes Care Provider Fa cility 04-01-2021 SARS-CoV-2 (COVID-19 ) mRNA BNT-162b2 vax Arelis Yip [facility] 03-11-2021 SARS-CoV-2 (COVID-19 ) mRNA BNT-162b2 vax Arelis Lue [facility] 11-07-2019 HPV, unspecified formulation Arelis Lue [facility] 07-09-2019 HPV, unspecified formulation Arelis Lue [facility] 05-06-2019 HPV, unspecified formulation Arelis Lue [facility] 04-29-2019 hepatitis A vaccine, unspecified formulation Arelis Lue [facility] 04-29-2019 meningococcal ACWY vaccine, unspecified formulation Arelis Lue [facility] 04-10-2019 influenza virus vacc ine, unspecified formulation Arelis Lue [facility] 09-05-2013 hepatitis A vaccine, unspecified formulation Arelis Lue [facility] 09-05-2013 meningococcal ACWY vaccine, unspecified formulation Arelis Lue [facility] 09-05-2013 tetanus toxoid, redu oj diphtheria toxoid, and acellular pertussis vaccine, adsorbed Arelis Lue [facility] 03-22-2006 diphtheria, tetanus toxoids and acellular pertussis vaccine Arelis Lue [facility] 03-22-2006 measles, mumps and rubella virus vaccine Arelis Lue [facility] 03-22-2006 poliovirus vaccine, unspecified formulation Arelis Lue [facility] 07-20-2004 influenza, whole Arelis Lue [facility] 06-29-2003 influenza virus vacc ine, unspecified formulation Arelis Lue [facility] 05-28-2003 diphtheria, tetanus toxoids and acellular pertussis vaccine Arelis Lue [facility] 05-28-2003 measles, mumps and rubella virus vaccine Arelis Lue [facility] 02-10-2002 DTaP, unspecified formulation Arelis Lue [facility] 02-10-2002 Hib, unspecified formulation Arelis Lue [facility] 02-10-2002 poliovirus vaccine, unspecified formulation Arelis Lue [facility] 2001 DTaP, unspecified formulation Arelis Lue [facility] 2001 poliovirus vaccine, unspecified formulation Arelis Lue [facility] 2001 DTaP, unspecified formulation Arelis Lue [facility] 2001 poliovirus vaccine, unspecified formulation Arelis Lue [facility] Payers Date Payer Category Payer Unknown [id number] 2001 Unknown [id number] 2.16.84 [id number] 2001 Unknown [id number] 2.16.84 [id number] 2001 Unknown [id number] 2.16.84 [id number] 2001 Unknown [id number] 2.16.84 [id number] 2001 Unknown [id number] 2.16.8 [id number] 2001 Unknown [id number] 2.16.8 [id number] 2001 Unknown [id number] 2.16.8 [id number] 2001 Unknown [id number] 2.16.8 [id number] 2001 Unknown [id number] 2.16.8 [id number] 2001 Unknown [id number] 2.16.8 [id number] 2001 Unknown [id number] 2.16.8 [id number] 2001 Unknown [id number] 2.16.8 [id number] 2001 Unknown [id number] 2.16.8 [id number] 1974 Unknown [id number] 2.16.8 [id number] 1974 Unknown [id number] 2.16.8 [id number] 1974 Unknown [id number] 2.16.8 [id number] 1959 Unknown [id number] Social History Date Type Detail Facility Start: 07-12-2018 End: 01-16-2024 Tobacco smoking status NHIS Never smoker [facility] Sex Assigned At Not on file [facility] Work Phone: Tobacco smoking status Never [facility] Sex Assigned At [facility] Functional Status Date Assessment Result Facility 01-16-2024 Functional Status N/A [facility] 10-02-2023 Functional Status N/A [facility] 03-14-2023 Functional Status N/A [facility] 10-27-2022 Functional Status N/A [facility] Clinical Notes 10-27-2022 to 01-16-2024 Note Date [...] provider. Document Revised: 12/08/2021 Document Reviewed: 12/08/2021 [employer] Patient Education 2022 [employer]. Follow Up Care 01/14/2024 11:04:14 With:Phi MTZ, PASQUALE Romo, URO Address: [address] [place] [address] [phone] When: Unknown [facility] 10-02-2023 Hospital Discharg e instructions Patient Education 10/02/2023 14:03:01 Kidney Stones, Afdr-vy-Aqbp Kidney Stones Kidney stones are rock-like masses [...] Follow these instructions at home: Medicines Take zfxk-ciq-zaompxr and prescription medicines only as told by [...] provider. Document Revised: 04/03/2022 Document Reviewed: 04/03/2022 [employer] Patient Education 2022 [employer]. Follow Up Care 09/19/2023 09:59:17 With:MARIA DE JESUS ANTONIO PA-C, URL Address: When:1 year [facility] 03-14-2023 Hospital Discharg e instructions Patient [...] include: ?8 oz (237 mL) of milk, dsawvgc-cuewozhdtbiw-vxxbx milk, and calcium-fortifiedfruit juice. Calcium-fortified means that [...] potatoes, and Canadian chard. ?Peanuts. ?Potato chips, brazilian fries, and baked potatoes with skin on. ?Nuts and nut products. ?Chocolate. If you regularly take a diuretic medicine, make sure to eat at least 1 or 2 servings of fruits or vegetables that are high in potassium each day. These include: ?Avocado. ?Banana. ?[place], prune, carrot, or tomato juice. ?Baked potato. [...] magnesium, fish oil, or vitamin B6. Take oymb-cvm-kqmlelh and prescription medicines only as told by [...] Casseroles. Pizza. Lasagna. Frozen meals. Potato chips. Divehi fries. The items listed above may not [...] provider. Document Revised: 04/10/2022 Document Reviewed: 04/10/2022 [employer] Patient Education 2022 [employer]. Follow Up Care 11/13/2022 09:26:52 With:Arelis Yip MD, URL, URO Address: When:Within 6 Month(s) Comments:w/ KUB and RASHEEDA and 24 hr urine [facility] 03-14-2023 Hospital Discharg e instructions Follow Up Care 03/14/2023 09:44:41 With:rAelis Yip MD, PASQUALE, URO Address: [address] [place] [phone] When: Unknown [facility] 11-13-2022 Hospital Discharg e instructions Patient [...] include: ?Spinach. ?Rhubarb. ?Beets. ?Potato chips and brazilian fries. ?Nuts. If you regularly take a diuretic medicine, make sure to eat at least 1 2 fruits or vegetables high in potassium each day. These include: ?Avocado. ?Banana. ?[place], prune, carrot, or tomato juice. ?Baked potato. [...] Casseroles. Pizza. Lasagna. Frozen meals. Potato chips. Divehi fries. Summary You can reduce your risk [...] 11/24/2011 Document Revised: 11/19/2019 Document Reviewed: 07/10/2017 [employer] Patient Education 2019 [employer]. 11/13/2022 09:24:55 [facility] - Cystoscopy with Stent [...] Up Care 11/10/2022 09:26:19 With:Arelis Yip Address: [address], [place] [address] [phone] Business (1) [address] [place], [place] [address]charles [place], [address] [address] [phone] Business (1) When: Unknown Comments:Office to schedule follow up in 6-8 wks with renal US, KUB and 24 hr urine stone workup, labs [facility] 11-01-2022 Note EXAMINATION: XR CHES T [...] authenticated by: DARIEL CHRISTINE Date: 2022-11-01 09:20 [facility] 10-27-2022 Hospital Discharg e instructions Patient [...] include: ?Spinach. ?Rhubarb. ?Beets. ?Potato chips and brazilian fries. ?Nuts. If you regularly take a diuretic medicine, make sure to eat at least 1 2 fruits or vegetables high in potassium each day. These include: ?Avocado. ?Banana. ?[place], prune, carrot, or tomato juice. ?Baked potato. [...] Casseroles. Pizza. Lasagna. Frozen meals. Potato chips. Divehi fries. Summary You can reduce your risk [...] 11/24/2011 Document Revised: 11/19/2019 Document Reviewed: 07/10/2017 [employer] Patient Education 2020 [employer]. Follow Up Care 09/07/2022 10:54:19 With:Arelis Yip MD, URL, URO Address: When: Unknown [facility] Evaluation + Plan note No data available for this section [facility] Evaluation + Plan note Future Appointments Appointment Date:01/17/2023 08:45:00 AM Scheduled Provider:Arelis Yip MD Location:[facility] Appointment Type:URO [facility] Evaluation + Plan note Future Appointments Appointment Date:09/19/2023 08:45:00 AM Scheduled Provider:Arelis Yip MD Location:[facility] Appointment Type:URO Office Visit Diagnostic Tests PendingUric Acid 03/14/23PTH Intact 03/14/23 [facility] Evaluation + Plan note Future Appointments Appointment Date:10/02/2023 12:40:00 PM Scheduled Provider:MARIA DE JESUS ANTONIO PA-C Location:[facility] Appointment Type:URO Office Visit [facility] Evaluation + Plan note Future Appointments Appointment Date:10/07/2024 09:00:00 AM Scheduled Provider:MARIA DE JESUS ANTONIO PA-C Location:[facility] Appointment Type:URO Office Visit [facility] Evaluation + Plan note Future Appointments Appointment Date:10/07/2024 09:00:00 AM Scheduled Provider:MARIA DE JESUS ANTONIO PA-C Location:[facility] Appointment Type:URO Office Visit Diagnostic Tests PendingUrine Culture 10/02/23 [facility] Evaluation + Plan note Future Appointments Appointment Date:01/23/2024 10:00:00 AM Scheduled Provider: Location:.[place] Appointment Type:PT Pelvic Floor/UI Eval () Appointment Date:07/23/2024 08:45:00 AM Scheduled Provider:Arelis Yip MD Location:[facility] Appointment Type:URO Office Visit 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 Procedures CT CHEST WITH CONTRAST VT CAT SCAN OF CHEST CONTRAST Hernesto Haque II, MD [address] [place] [address] Status Reason Specialty Diagnoses / Procedures Referred By Contact Referred To Contact New 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 Tuberculosis: no 37. 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 Obesity: yes 40. Sleep apnea: [...] as yet. Her mother reports that her real estate internship wants toput her on hormone replacement therapy. [...] potentially adverse cardiovascular effects, however he patient's real estate internship deems this to be necessary at this [...] failed tympanoplasty approximately 2 years ago in [place]. 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 Procedures CT CHEST WITH CONTRAST VT CAT SCAN OF CHEST CONTRAST Hernesto Haque II, MD [address] [place] [address] Reason Comments Follow-up Reason Comments Referral Reason Comments Follow-up 1 month follow-up Tu rner Syndrome, FE Reason Comments Medication Refill INFORMATION SOURCE (unrecogn ized section and content) DATE CREATED AUTHOR 09/14/2018 [facility] DATE CREATED AUTHOR AUTHOR'S ORGANIZ ATION 04/28/2019 [facility] DATE CREATED AUTHOR AUTHOR'S ORGANIZ ATION 05/25/2019 [facility] DATE CREATED AUTHOR AUTHOR'S ORGANIZ ATION 05/25/2019 [facility] DATE CREATED AUTHOR AUTHOR'S ORGANIZ ATION 08/15/2019 [facility] DATE CREATED AUTHOR AUTHOR'S ORGANIZ ATION 04/08/2020 [facility] DATE CREATED AUTHOR AUTHOR'S ORGANIZ ATION 11/18/2022 [facility] DATE CREATED AUTHOR AUTHOR'S ORGANIZ ATION 12/20/2023 [facility] DATE CREATED AUTHOR AUTHOR'S ORGANIZ ATION 01/21/2024 [facility] Patient Care team informatio n (unrecognized section and content) Personnel Name: Ilia Cobb DO Address: Address: [address] [place] [address] Personnel Name: Ilia Cobb DO Address: Address: [address] [place], [place] [id number]- Personnel Name: Ilia Cobb DO Address: Address: [address] [place], [place] [address] Personnel Name: ILIA COBB DO Address: Address: [address] [place] [address] Personnel Name: MIKAELA MARCH CNP Address: Address: [address] [place] [address] Personnel Name: MIKAELA MARCH CNP Address: Address: [address] [place] [address] Personnel Name: NONE, XXXX Address: Address: [facility] Personnel Name: NONE, XXXX Address: Address: [facility] FOR RECORDS PERTAINING TO PATIENTS WHO ARE [...] BE BASED ON THE PRIMARY CLINICAL RECORDS. [facility] [employer] [facility]. provides no warranty or guarantee of the accuracy or completeness of information in this document.
[2024-03-13] MEDS: LACTATED RINGER'S SOLUTION 1,000 ML 125 ML IV (17:43)
[2024-03-13] MEDS: BUSPIRONE HCL 10 MG TABLET PO (17:43)
--- NOTE | 2024-03-13 18:42 | ECG_ITS ---
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
[2024-03-13] MEDS: ENOXAPARIN SODIUM 40 MG/0.4 ML SYRINGE SUBQ (21:25)
[2024-03-13] MEDS: ACETAMINOPHEN 325 MG TABLET 650 MG PO (23:11)
[2024-03-14] VITALS (11 sets, daily range): BP systolic 129–156; BP diastolic 84–102; PULSE 108–124; TEMP 37–37.7; O2SAT 96–98
[2024-03-14] MEDS: LACTATED RINGER'S SOLUTION 1,000 ML 125 ML IV (02:17)
[2024-03-14] MEDS: LEVOTHYROXINE SODIUM 25 MCG TABLET 50 MCG PO (06:02)
--- NOTE | 2024-03-14 06:48 | PC.NURSE ---
IV in rt antecub not infusing and would not flush. IV removed. Attempt X2 to restart IV but unsuccessful.
[2024-03-14 06:55] LABS: Hematocrit 33.9 % (36.0-48.0); Hemoglobin 11.4 g/dL (12.0-16.0); Mean Corpuscular HGB Conc 33.6 g/dL (29.9-35.2); Mean Corpuscular Hemoglobin 30.4 pg (26.7-34.0); Mean Corpuscular Volume 90.4 fL (81.0-99.0); Mean Platelet Volume 9.3 fL (9.5-13.5); Platelet Count 86 10^3/uL (150-450); Red Blood Count 3.75 10^6/uL (4.20-5.40); Red Cell Distribution Width 13.1 % (11.0-15.0); White Blood Count 4.9 10^3/uL (4.0-11.0)
[2024-03-14 07:11] LABS: Alanine Aminotransferase 66 U/L (14-59); Albumin Globulin Ratio 0.9; Albumin Level 3.2 g/dL (3.4-5.0); Alkaline Phosphatase 103 U/L (46-116); Anion Gap 15.9; Aspartate Amino Transferase 54 U/L (15-37); BUN Creatinine Ratio 7.1; Bilirubin Total 0.6 mg/dL (0.2-1.0); Calcium 9.6 mg/dL (8.5-10.1); Carbon Dioxide 20.1 mmol/L (21.0-32.0); Chloride 103 mmol/L (98-107); Estimated GFR (African America >60 (>=60); Estimated GFR (Non-African Ame >60 (>=60); Globulin 3.6 g/dL; Glucose 98 mg/dL (74-106); Sodium 135 mmol/L (136-145); Total Protein 6.8 g/dL (6.4-8.2)
[2024-03-14 07:18] LABS: Band Neutrophils Absolute 0.4 10^3/uL (0.0-0.3); Lymphocytes Absolute Manual 0.73 10^3/uL (1.20-3.80); Monocytes Absolute Manual 0.14 10^3/uL (0.30-0.80); Segmented Neut Absolute Manual 3.62 10^3/uL (1.4-6.5)
[2024-03-14] MEDS: SERTRALINE HCL 100 MG TABLET PO (08:44)
[2024-03-14] MEDS: CHOLECALCIFEROL (VITAMIN D3) 25 MCG/1,000 UNITS TABLET 50 MCG PO (08:44)
[2024-03-14] MEDS: METOPROLOL SUCCINATE 25 MG TAB.ER.24H 12.5 MG PO (08:45)
[2024-03-14] MEDS: MONTELUKAST SODIUM 10 MG TABLET PO (08:45)
[2024-03-14] MEDS: CETIRIZINE HCL 10 MG TABLET PO (08:45)
[2024-03-14] MEDS: BUSPIRONE HCL 10 MG TABLET PO (08:47)
[2024-03-14] MEDS: FISH OIL 1,000 MG CAPSULE 1000 MG PO (08:48)
--- NOTE | 2024-03-14 09:18 | US_ITS ---
The [address] [address] Patient Name: RICARDO ATKINS MRN: [id number] date: 2000 Sex: F Assigned Patient Location: [place] Current Patient Location: [place] Accession/Order Number: [id number] Exam Date: 03/14/2024 11:25 Report Date: 03/14/2024 11:54 At the request of: SHAIKH CHARLES Procedure: US venous doppler LE RT CLINICAL DATA: Right leg pain. Right leg inflammation. PROCEDURE: Right lower extremity venous duplex ultrasound. TECHNIQUE: Brandon-scale, color flow, and waveform spectral analysis was performed of the right lower extremity. FINDINGS: The right common femoral, profunda femoral, femoral, and popliteal veins were compressible. The saphenous vein was compressible. No venous thrombosis was seen. The veins fill with color Doppler. Augmentation was normal. US/US venous doppler LE RT IMPRESSION: 1. No acute lower extremity deep venous thrombosis. 2. No superficial venous thrombosis. Electronically authenticated by: Adelaide LEVIN Date: 03/14/2024 11:54
--- NOTE | 2024-03-14 09:45 | CM.NOTE ---
Rounds made with Dr. Iyer. Dr. Iyer ordering Ultrasound to r/o DVT. [place] in agreement. Possible discharge later today.
--- NOTE | 2024-03-14 11:39 | P.HP_ITS ---
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 She was discharged on oral abx but she returned to ED with worsening erythema/pain along with fever/chills, nausea, vomiting and a headache. She also has hx of migraine headache and was given migraine cocktail that resolved her headache. However, given that her cellulitis worsened in a matter of one day. She was admitted for obs for IV abx. Patient was treated with IV vancomycin, IV fluids. She has persistent sinus tachycardia which is not new for her. Right inner thigh cellulitis has sig improvement and now there is only a very small area of induration/erythema. However, there is now area of erythema that is tender/painful on right LE below knee joint which is about 5 cm. Ordered an US to r/o DVT -no evidence of DVT Patient feels better overall and feels that she can go home. SHe is medically stable for discharge on oral bactrim. Opioid HPI Opioid Management Most Recent Pain and Opioid Data: Last Pain Scale 2 04/29/23 20:02 Last Pain Assessment 03/14/24 11:00 Last MAR Pain Assessment 03/14/24 01:02 Last ORT Total Score 2 03/13/24 15:47 Last ORT Risk Category Low Risk 03/13/24 15:47 Review of Systems ROS Status of ROS 10 or more systems reviewed and unremark able except as noted in history and below [facility] Medical History (Updated 03/14/24 @ 12:11 by Shaikh Shireen MD) HTN (hypertension) ?I10 - Essential (primary) hypertension (ICD-10) Hypothyroidism ?E03.9 - Hypothyroidism, unspecified (ICD-10) Hip dysplasia ?Q65.89 - Other specified congenital deformities of hip (ICD-10) Lymph edema ?I89.0 - Lymphedema, not elsewhere classified (ICD-10) 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 Smoking status: Never smoker Non-prescribed substance use: denies use Previous occupational history: [employer] in [employer], [place], [employer] by [employer] Highest level of school completed/degree received: high school graduate Are you now , , , , never or living with a partner: never In a typical week, how many times do you talk on the telephone with family, friends, or neighbors: 3 or more times per week How often do you get together with friends or relatives: 3 or more times per week How often do you attend bahai or synagogue services: never Do you belong to any clubs or organizations such as bahai groups unions, [employer] or athletic groups, or school groups: no Total score: 1 Score interpretation: A score of less than or equal to 1 indicates the most socially isolated. Little interest or pleasure in doing things: not at all Feeling down, depressed, or hopeless: not at all Feel stressed/tense/nervous/anxious/difficulty sleeping: not at all Meds Home Medications and Allergies Home Medications ?Medication ?Instructions ?Recorded ?Confirmed ?Type buspirone 10 mg tablet 10 mg PO BID 03/13/24 03/13/24 History cholecalciferol (vitamin D3) 50 50 mcg PO QDAY 03/13/24 03/13/24 History mcg (2,000 unit) tablet conj estrogen-medroxyprogesterone 1 tab PO QDAY 03/13/24 03/13/24 History 0.3 mg-1.5 mg tablet (Prempro) enalapril maleate 5 mg tablet 5 mg PO Q12H 03/13/24 03/13/24 History fluticasone propionate 50 1 spray intranasal QDAY PRN 03/13/24 03/13/24 History mcg/actuation nasal allergy symptoms spray,suspension levothyroxine 50 mcg tablet 50 mcg PO QAM 03/13/24 03/13/24 History loratadine 10 mg tablet 10 mg PO QDAY 03/13/24 03/13/24 History melatonin 3 mg tablet 6 mg PO .qhs 03/13/24 03/13/24 History metoprolol succinate 25 mg 12.5 mg PO QDAY 03/13/24 03/13/24 History tablet,extended release 24 hr montelukast 10 mg tablet 10 mg PO QAM 03/13/24 03/13/24 History omega-3 fatty acids-fish oil 300 1 cap PO QDAY 03/13/24 03/13/24 History mg-1,000 mg capsule ondansetron 4 mg disintegrating 4 mg PO Q6H PRN nausea and 03/13/24 03/13/24 Rx tablet vomiting #20 tabs sertraline 100 mg tablet 100 mg PO QAM 03/13/24 03/13/24 History sulfamethoxazole 800 1 tab PO BID 10 days #20 tabs 03/14/24 Rx mg-trimethoprim 160 mg tablet (Bactrim DS) Allergies Allergy/AdvReac Type Severity Reaction Status Date / Time No Known Drug Allergies Allergy Verified 03/13/24 03:38 Exam Constitutional Vital Signs, click to edit/add: Last Vital Signs Temp 98.6 F 03/14/24 07:33 Pulse 120 H 03/14/24 07:53 Resp 22 H 03/14/24 07:33 BP 156/102 H 03/14/24 07:33 Pulse Ox 98 03/14/24 11:26 O2 Del Method Room Air 03/14/24 11:26 Documenting provider has reviewed patient's vital signs: yes Common normals: no apparent distress and oriented x3 General appearance: cooperative [facility] Common normals: normocephalic and head/scalp atraumatic Head and scalp: normocephalic and atraumatic Respiratory Common normals: normal respiratory effort and clear to auscultation bilaterally Effort & inspection: able to speak in complete sentences Auscultation: clear to auscultation bilaterally Cardio Common normals: S1 normal heart sound and S2 normal heart sound Rate: tachycardic Heart sounds: S1 normal and S2 normal GI Common normals: Normal to inspection, nondistended, normoactive bowel sounds present, soft to palpation, non-tender and no hepatosplenomegaly Palpation: soft and no hepatosplenomegaly Extremity Common normals: no clubbing, cyanosis or edema Right lower extremity: upper leg (small area of induration/erythema improved from before. ) and lower leg (small area of erythema/tenderness. ) Neuro Common normals: oriented x3, moves all extremities and no focal motor deficits Psych Common normals: mental status grossly normal, denies hallucinations, denies homicidal ideation and denies suicidal ideation Results Labs Labs: Short CBC 03/14/24 Range/Units 06:45 WBC 4.9 (4.0-11.0) 10^3/uL Hgb 11.4 L (12.0-16.0) g/dL Hct 33.9 L (36.0-48.0) % Plt Count 86 L (150-450) 10^3/uL BMP 03/14/24 06:45 Sodium 135 L Potassium 4.0 Chloride 103 Carbon Dioxide 20.1 L BUN 5.0 L Creatinine 0.70 Glucose 98 Calcium 9.6 Liver Function 03/14/24 Range/Units 06:45 Total Bilirubin 0.6 (0.2-1.0) mg/dL AST 54 H (15-37) U/L ALT 66 H (14-59) U/L Alkaline Phosphatase 103 (46-116) U/L Albumin 3.2 L (3.4-5.0) g/dL Urine 03/13/24 Range/Units 13:40 Urine Color Lt. yellow (YELLOW) Urine Clarity Sl cloudy (CLEAR) Urine pH 8.5 (5.0-9.0) Ur Specific [place] 1.020 (1.005-1.025) Urine Protein Negative (NEG/TRACE) mg/dL Urine Glucose (UA) Negative (NEGATIVE) mg/dL Assessment and Plan Assessment and Plan (1) Cellulitis: Assessment and Plan: Right inner thigh cellulitis - improved sig. New lesion over right Leg that is painful, warm to touch. US ordered to r/o DVT. - No evidence of DVT Stable for discharge medically on oral bactrim Qualifiers: Laterality: right Site of cellulitis: extremity Site of cellulitis of extremity: lower extremity Qualified Code(s): L03.115 - Cellulitis of right lower limb (2) HTN (hypertension): Assessment and Plan: C/w home medications. will need to adjust. Defer to outpatient. Qualifiers: Hypertension type: primary hypertension Qualified Code(s): I10 - Essential (primary) hypertension (3) Turners syndrome: Assessment and Plan: F/u and monitor as clinically indicated. (4) Hypothyroidism: Assessment and Plan: check TSH. C/w levothyroxine Qualifiers: Hypothyroidism type: unspecified Qualified Code(s): E03.9 - Hypothyroidism, unspecified (5) Tachycardia: Assessment and Plan: Sinus tachycardia. Check TSH. Does not appear to be due to pain or infection as she does not appear dehydrated or in pain. She typically has elevated HR as per patient. (6) Lactic acid acidosis: Assessment and Plan: resolved with hydration. likely due to cellulitis/pain and dehydration (7) Transaminitis: Assessment and Plan: Mild transaminitis. f/u as outpatient. 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
[2024-03-14 12:10] LABS: Thyroid Stimulating Hormone 3.191 uIU/mL (0.358-3.740)
--- NOTE | 2024-03-17 13:31 | CM.DCFOLLOWU ---
Person spoke with: contacted How are you feeling? well How is your pain? none Did you understand your discharge instructions? yes Do you have any questions about your discharge instructions? no Were you given any prescriptions at discharge? yes Were you able to get your prescriptions filled? yes Do you understand how to take your medications as ordered? yes Do you have any questions about your follow up appointment and do you plan to keep your follow up appointment? no questions, follow up on March with Maryse Gerber Is there anything else that you would like to discuss? no Questions/Comments/Concerns/Other:none
== END 2024-03-14 13:15 | disposition home or self-care (01) ==
LOC: ER 14:50 → MS 15:41
PROVIDERS: Admitting Provider Internal Medicine; Emergency Provider Student in an Organized Health Care Education/Training Program; Visit Provider Internal Medicine
DX: L03.115 Cellulitis of right lower limb (principal); I10 Essential (primary) hypertension; Q96.9 Turner's syndrome, unspecified; E03.9 Hypothyroidism, unspecified; R00.0 Tachycardia, unspecified; E87.20 Acidosis, unspecified; R74.01 Elevation of levels of liver transaminase levels; G43.909 Migraine, unspecified, not intractable, without status migrainosus; Z79.899 Other long term (current) drug therapy; Z79.890 Hormone replacement therapy
CPT/HCPCS: 36415; 80048; 80053; 81001; 83605; 84443; 84703; 85007; 85027; 87040; 87086; 93005; 93971; 94761; 96365; 96366; 96367; 96372; 96375; 99284; 99285; G0378; J1200; J1650; J1885; J2765; J3370; J3475; Q0162

== ENCOUNTER 2024-07-29 07:33 | Outpatient (OUT) | payer OTHER, SELFPAY ==
--- NOTE | 2024-07-29 07:36 | US_ITS ---
The [place] [id number] Patient Name: RICARDO ATKINS MRN: [id number] date: 2000 Sex: F Assigned Patient Location: US Current Patient Location: [place] Accession/Order Number: [id number] Exam Date: 07/29/2024 07:38 Report Date: 07/29/2024 09:17 At the request of: EMILIA FISCHER Procedure: US renal BI EXAMINATION: US renal BI HISTORY: Kidney Stone COMPARISON: 08/22/2023 08/26/2023 TECHNIQUE: Ultrasound examination was performed of the bladder. FINDINGS: Right Kidney: Normal in size, contour and echotexture. The cortex measures 1.2 cm. No solid cortical mass, hydronephrosis or obstructing nephrolithiasis Height: 4.89 cm Length: 11.25 cm Width: 5.84 cm Left Kidney: Normal in size, contour and echotexture. The cortex measures 1.0 cm. 4 mm echogenic foci, nonobstructing nephrolith lower pole. 2.1 x 1.8 x 1.8 cm hypoechogenic lesion along the superior cortex, slightly increased in size from the prior exam Height: 4.13 cm Length: 11.21 cm Width: 4.95 cm The urinary bladder is grossly normal. Volume 301 mL. Other: Incidental cholelithiasis US/US renal BI IMPRESSION: Slight increase in now 2.1 cm hypoechogenic lesion superior left renal cortex possibly a cyst Nonobstructing left nephrolithiasis Electronically authenticated by: MARGARITA GHOSH Date: 07/29/2024 09:17
--- OUTSIDE RECORDS SUMMARY | 2024-07-29 07:37 | XMS_ITS | CCD ---
Author Organization [facility] Informat ion Partnership 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 Name Role Phone Ilia Monson Unavailable ILIA MONSON Attending Unavailable SELF, SELF Referring Unavailable ILIA MONSON Attending Unavailable SELF, SELF Referring Unavailable Ilia Monson Primary Care Provider THAO TORRES Attending U navailable VICTORIA, LASHAE TREVINO Attending Unavailab le CAROL, ILIA BYNUM Referring Unavailab le CAROL, ILIA BYNUM Primary Care Unavailab le HASTINGS, LASHAE TREVINO Attending Unavailab le CAROL, ILIA BYNUM Primary Care Unavailab le HASTINGS, LASHAE TREVINO Attending Unavailab le CAROL, ILIA BYNUM Primary Care Unavailab Ilia Glover Primary Care Provider [phone] Ilia Cobb Primary Care Physician [phone] REZA, DR YOO Primary Care Unavailable PHI .ARELIS Attending Unavailable LUE ., ARELIS Preston Admitting Unavailable EMMETT, DR DARIEL Hernandez Consulting Unavailable LUE .ARELIS Consulting Unavailable REZA, DR YOO Primary Care Unavailable LUE .ARELIS Admitting Unavailable LUE ., ARELIS Preston Consulting Unavailable LUE .ARELIS Attending Unavailable CHRISTINE MANE Consulting Unavailable REZA, DR YOO Admitting Unavailable REZA, DR YOO Primary Care Unavailable REZA, DR YOO Consulting Unavailable REZA, DR YOO Attending Unavailable KAYCE SANDS Consulting Unavailable BERNARD ., DR HILL Admitting Unavailable REQUEST, DR GUZMAN LISTED Primary Care Unavaila ble HAY ., DR HILL Consulting Unavailable HAY ., DR HILL Attending Unavailable ILIA COBB Primary Care Physician [phone] MIKAELA MARCH Primary Care Physician BARAK MABRY F Admitting Unavailable ROMAN MABRYMAD F Attending Unavailable BARAK MABRY F Admitting Unavailable NONE, XXXX Primary Care Physician Unavailab Arelis Gonzalez Attending Unavailable Arelis Yip Attending Unavailable MARIA DE JESUS ANTONIO Attending Unavailable SHAMSHALINI, MIKAELA Primary Care Unavailable Arelis Yip Attending Unavailable JOAQUIM, MIKAELA Primary Care Unavailable Arelis Yip Attending Unavailable SHAMMO, MIKAELA Primary Care Unavailable MARIA DE JESUS ANTONIO Admitting Unavailable PACOMARIA DE JESUS DENNY Attending Unavailable SHAMMO, MIKAELA Primary Care Unavailable PACOMARIA DE JESUS DENNY Attending Unavailable SHAMMO, MIKAELA Primary Care Unavailable Medications Current Medications [...] Start: 06-06-2018 take 1 tablet by dang twice daily enalapril 5 MG Tab tablet Indications: Essential hypertension Take 1 tablet by mouth 2 times daily. 180 tablet 1 06/06/2018 Active hydrocortisone 10 mg/ml / neomycin 3.5 mg/ml / polymyxin b 41274 unt/ml otic suspension (8 sources) Aminoglycoside Antibacterial, Polymyxin-class Antibacterial, Corticosteroid Start: 06-06-2018 uelgqtyn-ecqdwurce-crruxczkg isone (CORTISPORIN) otic suspension Administer 4 drops into ears . 0 06/06/2018 Active Start: 06-06-2018 neomycin-polym yxin-hydrocortisone 3.5-38651-4 Suspension Indications: History of recurrent ear infection [...] Nausea/Vomiting, # 12 tab(s), Refills(s) 0, Pharmacy: [id number], 148, cm, 10/27/22 9:59:00 EDT, Height/Length Dosing, [...] deficiency] Chronic Other aftercare (1 source) Other halfway (current) drug therapy; Translations: [OTH USP CURRENT DRUG THERAPY] Onset: 11-16-2022 Episodic Other [...] Test Name Value Interpretation Reference Range Facility Ambulatory Visit Summaryon 1 09-23-2023 Ambulatory Visit Summary Ambulatory Visit Summary KEYONA ATKINS :2000 Visit Date:07/23/2024 Ambulatory Visit Instructions Your Diagnosis Urge incontinence Kidney stone Renal cyst Tests Performed US Renal -- Results Pending -- XR Abdomen 1 View -- Results Pending -- Please visit your patient portal for your results or contact your primary care physician. Your Care Team Attending Physician - Phi MTZ, Arelis Velazquez Primary Care Physician - NONE, XXXX This Is Your Medications List Contact prescribing physician if questions or concerns busPIRone (busPIRone 10 mg Tab) cholecalciferol (Vitamin [...] (11/08/2022), Tonsillectomy. Discharge Vitals Heart Rate (Peripheral) 98 Blood Pressure 138/84 Height 148 cm Height 58 in Weight 102.7 kg Weight 226.414 lb BMI 46.89 What to do next Scheduled Follow-Up Appointments Sunday 9:45 AM EDT With: Phi MTZ, Arelis Velazquez Where: [facility] [address] You Need to Schedule the Following Appointments Follow Up with Phi MTZ, Arelis Velazquez, URL, URO When: Where: Medications What How Much When Instructions Unchanged busPIRone (busPIRone 10 mg Tab) Contact prescribing physician if questions or concerns Unchanged cholecalciferol (Vitamin D3) Contact prescribing physician if questions or concerns Unchanged enalapril (enalapril 5 mg Tab) By Mouth Every day Contact prescribing physician if questions or concerns Unchanged loratadine (loratadine 10 mg Tab) By Mouth Every day Contact prescribing physician if questions or concerns Unchanged melatonin (melatonin 3 mg Tab) 1 Tablets By Mouth Once a day (at bedtime) as needed for for insomnia Contact prescribing physician if questions or concerns Unchanged metoprolol (metoprolol 25 mg ER Tab) By Mouth Every day Contact prescribing physician if questions or concerns Unchanged mometasone topical (mometasone Top 0.1% Crm 15 gram) Contact prescribing physician if questions or concerns Unchanged montelukast (montelukast 10 mg Tab) By Mouth Every day Contact prescribing physician if questions or concerns Unchanged sertraline (sertraline 50 mg Tab) By Mouth Every day Contact prescribing physician if questions or concerns Allergies No Known Allergies Problems Ongoing - Any problem that you are currently receiving treatment for. Asthma Deafness Gross hematuria Head ache Head injury Heart disease Hypertension Kidney stone Renal cyst Renal stone Urge incontinence Patient Survey You may receive a survey via text or e-mail asking about your office visit. Please share your experience with us by completing your survey. We appreciate your feedback and thank you for choosing us for your care. Education Materials Kegel Exercises Kegel exercises can help strengthen [...] Your provider may suggest Kegel exercises to: ??? Improve bladder and bowel control. ??? Improve sexual response. ??? Improve weak pelvic floor muscles after surgery to remove the uterus (hysterectomy) or after , in females. ??? Improve weak pelvic floor muscles after prostate [...] care provider. Repeat this exercise daily as (more content not included)... [facility] Reminderson 07-23-2024 Reminders Reminders - From: Kaylee Chauhan To: LUCINDA - Recallmeme Yip; Sent: 07/23/2024 10:42:31 EST Show up: 07/23/2024 10:42:00 EST Subject: RASHEEDA/KUB @ [facility] Due Date/Time: 10/22/2024 10:42:00 EDT Reminder/Recall Per KML, patient to have RASHEEDA, KUB and Litholink done prior to f/u appointment on 10/22/24. RASHEEDA and KUB were ordered on 07/23/24, and patient would like to have the imaging done at [facility]. Please send orders prior to f/u appointment on 10/22/24. [facility] Urology Office/Clinic Noteon 07-23-2024 Urology Office/Clinic Note Urology Office/Clinic Note Chief Complaint 6 mth f/u HPI Staff 23 yo female pt here today for a 6 mos f/u. Previous Dx:Urge Incontinence, Kidney Stone, and Renal Cyst No Urologic Meds Pt was previously referred to PFPT at [facility] at the time of her last OV. Dysuria: _no Incomplete bladder emptying: _no Hematuria: _no Frequency: _q1-2 hrs Urgency: _yes Nocturia: _2x Stream: _normal Leaking: _no Post void dripping: _no Wearing pads/ Depends: _no Urge incontinence: _no Stress incontinence: _no Incontinence without Sensory Awareness: _no Abdominal pain: _no Flank pain: _no Sexual complaints: _no History of Present Illness Tests reviewed: reviewed UA I have reviewed the previous health record [...] HPI. Physical Exam Vitals & Measurements HR: 98(Peripheral) BP: 138/84 HT: 58 in HT: 148 cm WT: 102.7 kg WT: 226.414 lb BMI: 46.89 General Appearance: alert , no acute distress, well nourished, well developed female. Genitourinary: bladder nonpalpable, no flank pain. 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 1. Urge incontinence (N39.41: Urge incontinence) BBS 13 (17) UA today shows small leuks, previously showed small leuks. Asx. PVR was 76cc, previously was 25cc. Pt previously elected to do formal PFPT and behavioral modifications at prior OV. Pt did not have this done, does not recall why. Has done the Kegels, feels her sxs have improvement. Pt states that she does not want to do the PFPT. Pt states that she is not having leakage. Advised pt that she has some residual left after voiding. Counseled pt on the proper time for Kegels and methods to empty better. -Kegels, avoid bladder irritants, behavioral modifications. -Consider rereferral to pelvic floor physical therapy in the future if symptoms worsen 2. Kidney stone (N20.0: Calculus of kidney) CT AP w/wo con 08/26/22 @[facility] stone 7.5 mm. [...] stone (vs calc at interface) as 6mm Metabolic work-up 2022. 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 Advised pt to try to increase her fluid intake. Discussed doing a metabolic workup and repeat imaging. Pt states that she would like to do this now. Counseled pt on the dietary modifications to prevent future stone formation. Follow up in 2-3 mos w/LithoLink and imaging. All questions/concerns were discussed. Pt to call the office if she encounters any issues prior. Pt acknowledges understanding. -Will order LithoLink, serum labs, KUB & RASHEEDA. Pt prefers [facility]. -Inc fluids, dietary modifications 3. Renal cyst (N28.1: Cyst of kidney, acquired) CT AP w/wo con 08/26/22 @[facility] - An upper pole left simple renal cyst 1.7 cm. -Simple cyst does not require surveillance. Follow-up With When Contact Information Arelis Yip MD, URL, URO Additional Instructions: Patient Education Bethany Mcdonald, personally scribed for Dr. Yip on 07/23/2024 09:47:12. . Documentation recorded by the Bethany viera (more content not included)... [facility] Comment on above: Result Comment: Elec tronically Signed By: Arelis Yip MD\.br\Date and Time Signed: 07/23/24 09:50 EST\.br\Electronically Co-Signed By: Bethany March\.br\Date and Time Co-Signed: 07/23/24 09:48 EST Nonvisit Note - PTon 024 Nonvisit Note - PT Chart reviewed with eval prepped for scheduled eval. KK [facility] Screenson 01-17-2024 Screens [id number] #1.00TIFF Normal [facility] Patient Educationon 01-16-20 24 Patient Education [...] provider. Document Revised: 12/08/2021 Document Reviewed: 12/08/2021 [employer] Patient Education ? 2022 [employer] Normal [facility] Urology Office/Clinic Noteon 01-16-2024 Urology Office/Clinic [...] -Avoid bladder irritants. Educational pamphlets provided. -Practice Shavonne -Referral to PFPT @ [facility] 2. Kidney stone (N20.0: Calculus of kidney) CT AP w/wo con 08/26/22 @[facility] stone 7.5 mm. [...] 08/22/23 - (more content not included)... [facility] Comment on above: Result Comment: Elec tronically Signed By: Phi MTZ, Arelis Velazquez\.br\Date and Time Signed: 01/16/24 16:38 EDT\.br\Electronically Co-Signed By: Tammie Torres\.br\Date and Time Co-Signed: 01/16/24 10:24 EDT C Urineon 10-05-2023 Bacteria identified Cx Nom (U) Microbiology PROCEDURE: Urine Culture [R1] SOURCE: U Random BODY SITE: COLLECTED DATE/TIME: 10/02/2023 13:55 EST RECEIVED DATE/TIME: 10/03/2023 11:15 EST START DATE/TIME: 10/03/2023 11:15 EST FREE TEXT SOURCE: PACO ROWE, MARIA DE JESUS ANTONIO PA-C, MARIA DE JESUS Perez FINAL REPORTS Final Report [] Verified Date/Time: 10/05/2023 10:43 EST 3,000 cfu/ml Mixed skin contaminants Performing Locations R1: This test was performed at: [facility], [address] [place] [address], [phone] , , [facility] Comment on above: Performed By: #### 2 [id number] ####[facility] [address] [place] [address] Ambulatory Visit Summaryon 0 10-02-2023 Ambulatory Visit [...] Follow-Up Appointments Sunday 9:00 AM EST With: MARIA DE JESUS ANTONIO PA-C Where: [facility] Patient Educationon 10-02-19 Patient Education Urology Kidney [...] these instructions at home: Medicines ? Take ldtp-kho-yhjyuse and prescription medicines only as told by [...] provider. Document Revised: 04/03/2022 Document Reviewed: 04/03/2022 Elsevier Patient Education ? 2022 [employer] [facility] URINALYSISOrdered By: Anne Taveras on 10-02-2023 Bacteria LM Ql (Urine sed) 1+ /HPF Invalid Interpretation Code Trace/HPF [facility] UA Auto SS Bilirubin Ql (U) Negative (10/02/23 1:55 PM) Normal Negative [facility] UA Auto SS Calcium oxalate crystals LM Ql (Urine sed) Present (10/02/23 1:55 PM) Normal [facility] UA Auto SS Clarity (U) SL CLOUDY Invalid Interpretation Code [facility] UA Auto SS Color (U) Yellow (10/02/23 1:55 PM) Normal Yellow [facility] UA Auto SS Epithelial cells.squamous LM.HPF (Urine sed) [#/Area] 3-4 /HPF Normal 0-2/HPF [facility] UA Aut o SS Glucose Test strip (U) [Mass/Vol] Negative (10/02/23 1:55 PM) Normal Negative [facility] UA Auto SS Hemoglobin Ql (U) Negative (10/02/23 1:55 PM) Normal Negative [facility] UA Auto SS Ketones (U) [Mass/Vol] Negative (10/02/23 1:55 PM) Normal Negative [facility] UA Auto SS Mason.plasma/Lithiu m.RBC (Bld) [Mass ratio] 0-3 /HPF Normal 0-3/HPF [facility] UA Auto SS Mucus Ql (Urine sed) Trace (10/02/23 1:55 PM) Normal [facility] UA Auto SS Nitrite Ql (U) Negative (10/02/23 1:55 PM) Normal Negative [facility] UA Auto SS pH (U) 6.5 *NA* (10/02/23 1:55 PM) Invalid Interpretation Code 5.0 - 9.0 [facility] UA Auto SS Protein (U) [Mass/Vol] Negative (10/02/23 1:55 PM) Normal Negative [facility] UA Auto SS Specific gravity (U) [Rel density] 1.020 *NA* (10/02/23 1:55 PM) Invalid Interpretation Code 1.005 - 1.030 [facility] UA Auto SS UA Spec Desc Random Urine (10/02/23 1:55 PM) Normal [facility] UA Auto SS Urobilinogen Qn (U) 0.4974628 {Mi'U}/dL Normal 0.0 - 1.0 EU/dL [facility] UA Auto SS WBC Auto Ql (U) Negative (10/02/23 1:55 PM) Normal Negative [facility] UA Auto SS WBC LM.HPF (Urine sed) [#/Area] 0-5 /HPF Normal 0-5/HPF [facility] UA Auto SS Urinalysison 10-02-2023 Bacteria LM Ql (Urine sed) 1+ /HPF Abnormal Trace [facility] Comment on above: Performed By: #### 1 [id number] ####[facility] [address] [place] [address] Bilirubin Ql (U) Negative Normal Negative [facility] Comment on above: Performed By: #### 1 [id number] ####[facility] [address] [place] [address] Calcium oxalate crystals LM Ql (Urine sed) Present Normal [facility] Comment on above: Performed By: #### 1 [id number] ####[facility] [address] [place] [address] Clarity (U) SL CLOUDY Invalid Interpretation Code [facility] Comment on above: Performed By: #### 1 [id number] ####[facility] [address] [facility] [place] [address] Color (U) YELLOW Normal Yellow [facility] Comment on above: Performed By: #### 1 [id number] ####[facility] [address] [place] [address] Epithelial cells.squamous LM.HPF (Urine sed) [#/Area] 3-4 Normal 0-2 [facility] Comment on above: Performed By: #### 1 [id number] ####[facility] [address] [facility] [place] [address] Glucose Test strip (U) [Mass/Vol] Negative Normal Negative [facility] Comment on above: Performed By: #### 1 [id number] ####[facility] [address] [facility] [place] [address] Hemoglobin Ql (U) Negative Normal Negative [facility] Comment on above: Performed By: #### 1 [id number] ####[address] [address] Ketones (U) [Mass/Vol] Negative Normal Negative [facility] Comment on above: Performed By: #### 1 [id number] ####[address] [address] Mason.plasma/Lithiu m.RBC (Bld) [Mass ratio] 0-3 Normal 0-3 [facility] Comment on above: Performed By: #### 1 [id number] ####[address] [address] Mucus Ql (Urine sed) TRACE Normal [facility] Comment on above: Performed By: #### 1 [id number] ####[address] [address] Nitrite Ql (U) Negative Normal Negative [facility] Comment on above: Performed By: #### 1 [id number] ####[address] [address] pH (U) 6.5 [pH] Invalid Interpretation Code 5.0-9.0 [facility] Comment on above: Performed By: #### 1 [id number] ####[address] [address] Protein (U) [Mass/Vol] Negative Normal Negative [facility] Comment on above: Performed By: #### 1 [id number] ####[address] [address] Specific gravity (U) [Rel density] 1.020 Invalid Interpretation Code 1.005-1.030 [facility] Comment on above: Performed By: #### 1 [id number] ####[address] [address] Type of Urine collection method Random Urine Normal [facility] Comment on above: Performed By: #### 1 [id number] ####[address] [address] Urobilinogen Qn (U) 0.2 {Mi'U}/dL Normal 0.0-1.0 [facility] Comment on above: Performed By: #### 1 [id number] ####[facility] [address] [place] [address] WBC Auto Ql (U) Negative Normal Negative [facility] Comment on above: Performed By: #### 1 [id number] ####[facility] [address] [place] [address] WBC LM.HPF (Urine sed) [#/Area] 0-5 Normal 0-5 [facility] Comment on above: Performed By: #### 1 [id number] ####[facility] [address] [place] [address] Urology Office/Clinic Noteon 10-02-2023 Urology Office/Clinic Note Chief Complaint 6m KUB/RASHEEDA & 24hr urine HPI Staff KML pt 23 year old female here for 6 month with KUB and RAHSEEDA. Previous DX: renal stone, gross hematuria and renal cyst. RASHEEDA and KUB done 08/22/23. Following last encounter pt was to complete Litholink & PTH/Uric Acid (labs missed on previous blood draw) Litholink specimen was lost in transit. 24hr urine completed @ [facility]. Denies flank pain since last encounter. Denies [...] E&M of Est. Patient Moderate 30-39 Min 08358 2. Renal cyst (N28.1: Cyst of kidney, acquired) simple cyst does not require additional monitoring Ordered: E&M of Est. Patient Moderate 30-39 Min 33370 Urnls Dip Stick Auto w/o Microscopy POC 64292 3. Gross hematuria (R31.0: Gross hematuria) UA [...] E&M of Est. Patient Moderate 30-39 Min 01851 Urinalysis Urine Culture Follow-up With When Contact Information MARIA DE JESUS ANTONIO PA-C, URL Within 1 year Additional Instructions: Patient Education Kidney Stones, Veuj-wf-Kujy Problem List/Past Medical History Ongoing Asthma Deafness [...] 05/06/2019 Recorded mening (more content not included)... [facility] Comment on above: Result Comment: Elec tronically Signed By: MARIA DE JESUS ANTONIO PA-C\.br\Date and Time Signed: 10/02/23 14:03 EST Provider Orderson 09-12-2023 Provider Orders [id number] #1.00OTGTIFF Normal [facility] RAD - MISCon 08-24-2023 RAD - MISC [id number] #1.00TIFF Normal [facility] RAD - Ultrasound Reporton RAD - Ultrasound Report [id number] #1.00TIFF Normal [facility] Provider Orderson 06-15-2023 Provider Orders [id number] #1.00OTGTIFF Normal [facility] Provider Orderson 06-04-2023 Provider Orders [id number] [facility]ARY[facility] 3 2,8 Dihydroxyadenine Normal [facility] Comment on above: Performed By: #### C ALCULI #### [facility] [address] [address] [address] Graciela Paz Ammonium Acid Urate Normal [facility] Comment on above: Performed By: #### C ALCULI #### [facility] [address] [address] [address] Graciela Paz Bilirubin Ql (U) Normal [facility] Comment on above: Performed By: #### C ALCULI #### [facility] [address] [address] [address] Graciela Paz Ca Oxalate Dihydrate 90 % Normal [facility] Comment on above: Performed By: #### C ALCULI #### [facility] [address] [address] [address] Graciela Paz CaHPO4 (Brushite) [facility] Comment on above: Performed By: #### C ALCULI #### [facility] [address] [address] [address] Graciela Paz Calcium Bilirubinate Normal [facility] Comment on above: Performed By: #### C ALCULI #### [facility] [address] [address] [address] Graciela Paz Calcium Carbonate Normal [facility] Comment on above: Performed By: #### C ALCULI #### [facility] [address] [address] [address] Graciela Paz Calcium Oxalate Monohydrate 5 % [facility] Comment on above: Performed By: #### C ALCULI #### [facility] [address] [address] [address] Graciela Paz Calcium Palmitate Normal [facility] Comment on above: Performed By: #### C ALCULI #### [facility] [address] [address] [address] Graciela Paz Calcium Phosphate [facility] Comment on above: Performed By: #### C ALCULI #### [facility] [address] [place] [address] Dr. Graciela Paz Calcium Stearate Normal [facility] Comment on above: Performed By: #### C ALCULI #### [facility] [address] [address] [address] Graciela Paz Carbonate Apatite Normal [facility] Comment on above: Performed By: #### C ALCULI #### [facility] [address] [address] [address] Graciela Paz Cellular Material [facility] Comment on above: Performed By: #### C ALCULI #### [facility] [address] [place] [address] Dr. Graciela Paz Cholesterol [facility] Comment on above: Performed By: #### C ALCULI #### [facility] [address] [address] [address] Graciela Paz Color (U) [place]co Normal [facility] Comment on above: Performed By: #### C ALCULI #### [facility] [address] [place] [address] Dr. Graciela Paz Comment Comment [facility] Comment on above: Result Comment: Calc ium phosphate (hydroxyl form) includes hydroxyapatite, amorphous calcium phosphate, and whitlockite. Hydroxyapatite is the most common of the calcium phosphate salts found in human kidney stones. Performed By: #### C ALCULI #### [facility] [address] [address] [address] Graciela Paz Result Comment: Calc ulus received wet. Wet calculi must be dried before analysis, which delays reporting of results. Leaving calculi wet (such as water, saline, blood, urine) may lead to changes in composition. Comment: Comment Normal [facility] Comment on above: Result Comment: Emily mullen questions regarding Calculi Analysis [facility] at: [phone]. Performed By: #### C ALCULI #### [facility] [address] [place] [address] Dr. Graciela Paz Composition Comment Normal [facility] Comment on above: Result Comment: Perc entage (Represents the % composition) Performed By: #### C ALCULI #### [facility] [address] [place] [address] Dr. Graciela Paz Cystine Normal [facility] Comment on above: Performed By: #### C ALCULI #### [facility] [address] [place] [address] Dr. Graciela Paz Disclaimer: Comment Normal [facility] Comment on above: Result Comment: This test was developed and its performance characteristics determined by [facility]. It has not been cleared or approved by the Food and Drug Administration. Performed By: #### C ALCULI #### [facility] [address] [place] [address] Dr. Graciela Paz Dried Blood Normal [facility] Comment on above: Performed By: #### C ALCULI #### [facility] [address] [place] [address] Dr. Graciela Paz Drug or Metabolite Normal [facility] Comment on above: Performed By: #### C ALCULI #### [facility] [address] [place] [address] Dr. Graciela Paz Hydroxyapatite 5 % Normal [facility] Comment on above: Performed By: #### C ALCULI #### [facility] [address] [place] [address] Dr. Graciela Paz Mg NH4 PO4 (Struvite) [facility] Comment on above: Performed By: #### C ALCULI #### [facility] [address] [address] [address] Graciela Paz MgHPO4 ([facility]) Normal [facility] Comment on above: Performed By: #### C ALCULI #### [facility] [address] [address] [address] Graciela Paz Other component(s) Normal [facility] Comment on above: Performed By: #### C ALCULI #### [facility] [address] [address] [address] Graciela Paz PDF . Normal [facility] Comment on above: Performed By: #### C ALCULI #### [facility] [address] [address] [address] Graciela Paz Photo Comment [facility] Comment on above: Result Comment: Phot ograph will follow under a separate cover Performed By: #### C ALCULI #### [facility] [address] [address] [address] Graciela Paz Please note: Comment Normal [facility] Comment on above: Result Comment: Calc rafal report will follow via computer, mail or liner replacer delivery. Performed By: #### C ALCULI #### [facility] [address] [address] [address] Graciela Paz Size 2x3 [facility] Comment on above: Result Comment: Mult iple pieces received. Dimensions of the largest piece reported. Performed By: #### C ALCULI #### [facility] [address] [address] [address] Graciela Paz Sodium Acid Urate [facility] Comment on above: Performed By: #### C ALCULI #### [facility] [address] [address] [address] Graciela Paz Source Comment [facility] Comment on above: Result Comment: Left Kidney Performed By: #### C ALCULI #### [facility] [address] [address] [address] Graciela Paz Triamterene [facility] Comment on above: Performed By: #### C ALCULI #### [facility] [address] [place] [address] Dr. Graciela Paz Uric Acid Normal [facility] Comment on above: Performed By: #### C ALCULI #### [facility] [address] [place] [address] Dr. Graciela Paz Uric Acid Dihydrate Normal [facility] Comment on above: Performed By: #### C ALCULI #### [facility] [address] [place] [address] Dr. Graciela Paz Weight 58 mg [facility] Comment on above: Performed By: #### C ALCULI #### [facility] [address] [place] [address] Dr. Graciela Paz Xanthine [facility] Comment on above: Performed By: #### C ALCULI #### [facility] [address] [place] [address] Dr. Graciela Paz CBC AUTO DIFFon 11-13-2022 BASO # 0.1 103/ul Normal 0.0-0.1 [facility] Comment on above: Performed By: #### C BC #### [facility] [address] [place] [address] Dr. Graciela Paz Basophils/100 WBC (Bld) 0.8 % Normal 0.2-2.0 [facility] Comment on above: Performed By: #### C BC #### [facility] [address] [place] [address] Dr. Graciela Paz EO # 0.2 103/ul Normal 0.0-0.7 [facility] Comment on above: Performed By: #### C BC #### [facility] [address] [place] [address] Dr. Graciela Paz Eosinophils/100 WBC (Bld) 3.2 % Normal 0.9-7.0 [facility] Comment on above: Performed By: #### C BC #### [facility] [address] [place] [address] Dr. Graciela Paz Erythrocyte distribution width (RBC) [Ratio] 13.2 % Normal 11.0-15.0 [facility] Comment on above: Performed By: #### C BC #### [facility] [address] [place] [address] Dr. Graciela Paz Hematocrit (Bld) [Volume fraction] 37.3 % Normal 36.0-48.0 [facility] Comment on above: Performed By: #### C BC #### [facility] [address] [place] [address] Dr. Graciela Paz Hemoglobin (Bld) [Mass/Vol] 12.5 g/dL Normal 12.0-16.0 [facility] Comment on above: Performed By: #### C BC #### [facility] [address] [place] [address] Dr. Graciela Paz IG # 0.03 10e3/ul Normal 0.00-0.03 [facility] Comment on above: Performed By: #### C BC #### [facility] [address] [place] [address] Dr. Graciela Paz IG % 0.5 % Normal 0.0-0.5 [facility] Comment on above: Performed By: #### C BC #### [facility] [address] [place] [address] Dr. Graciela Paz LYMPH # 1.5 103/ul Normal 1.2-3.8 [facility] Comment on above: Performed By: #### C BC #### [facility] [address] [place] [address] Dr. Graciela Paz Lymphocytes/100 WBC (Bld) 23.7 % Normal 20.5-60.0 [facility] Comment on above: Performed By: #### C BC #### [facility] [address] [place] [address] Dr. Graciela Paz MANUAL DIFF REQ NO Normal [facility] Comment on above: Performed By: #### C BC #### [facility] [address] [place] [address] Dr. Graciela Paz MCH (RBC) [Entitic mass] 30.3 pg Normal 26.7-34.0 [facility] Comment on above: Performed By: #### C BC #### [facility] [address] [place] [address] Dr. Graciela Paz MCHC (RBC) [Mass/Vol] 33.5 g/dL Normal 29.9-35.2 [facility] Comment on above: Performed By: #### C BC #### [facility] [address] [place] [address] Dr. Graciela Paz MCV (RBC) [Entitic vol] 90.5 fL Normal 81.0-99.0 [facility] Comment on above: Performed By: #### C BC #### [facility] [address] [place] [address] Dr. Graciela Paz MONO # 0.6 103/ul Normal 0.3-0.8 [facility] Comment on above: Performed By: #### C BC #### [facility] [address] [place] [address] Dr. Graciela Paz Monocytes/100 WBC (Bld) 9.1 % Normal 1.7-12.0 [facility] Comment on above: Performed By: #### C BC #### [facility] [address] [place] [address] Dr. Graciela Paz NEUT # 4.1 103/ul Normal 1.4-6.5 [facility] Comment on above: Performed By: #### C BC #### [facility] [address] [place] [address] Dr. Graciela Paz Neutrophils/100 WBC (Bld) 62.7 % Normal 43.0-75.0 [facility] Comment on above: Performed By: #### C BC #### [facility] [address] [place] [address] Dr. Graciela Paz Platelet mean volume (Bld) [Entitic vol] 9.7 fL Normal 9.5-13.5 [facility] Comment on above: Performed By: #### C BC #### [facility] [address] [place] [address] Dr. Graciela Paz PLT 193 103/ul Normal 150-450 [facility] Comment on above: Performed By: #### C BC #### [facility] [address] [place] [address] Dr. Graciela Paz RBC 4.12 106/ul Critically low 4.20-5.[address] [facility] Comment on above: Performed By: #### C BC #### [facility] [address] [address] [address] Graciela Paz WBC 6.5 103/ul Normal 4.0-11.0 [facility] Comment on above: Performed By: #### C BC #### [facility] [address] [address] [address] Graciela Paz ER URINE PROFILEon 3 Bilirubin Ql (U) SMALL Abnormal NEGATIVE [facility] Comment on above: Performed By: #### U MICRO, ERUR #### [facility] [address] [place] [address] Dr. Graciela Paz Clarity (U) CLOUDY Abnormal CLEAR [facility] Comment on above: Performed By: #### U MICRO, ERUR #### [facility] [address] [place] [address] Dr. Graciela Paz Color (U) DK. YELLOW Normal YELLOW [facility] Comment on above: Performed By: #### U MICRO, ERUR #### [facility] [address] [place] [address] Dr. Graciela LUEVANO A micrscopic examination will be performed if indicated. Normal [facility] Comment on above: Performed By: #### U MICRO, ERUR #### [facility] [address] [address] [address] Graciela Paz Glucose Ql (U) Negative Normal NEGATIVE [facility] Comment on above: Performed By: #### U MICRO, ERUR #### [facility] [address] [address] [address] Graciela Paz Hemoglobin Ql (U) LARGE Abnormal NEGATIVE [facility] Comment on above: Performed By: #### U MICRO, ERUR #### [facility] [address] [place] [address] Dr. Graciela Paz Ketones Ql (U) TRACE Abnormal NEGATIVE [facility] Comment on above: Performed By: #### U MICRO, ERUR #### [facility] [address] [place] [address] Dr. Graciela Paz LEUKOCYTES TRACE Abnormal NEGATIVE [facility] Comment on above: Performed By: #### U MICRO, ERUR #### [facility] [address] [place] [address] Dr. Graciela Paz Nitrite Ql (U) Negative Normal NEGATIVE [facility] Comment on above: Performed By: #### U MICRO, ERUR #### [facility] [address] [address] [address] Graciela Paz pH (U) 6.5 [pH] Normal 5-9 [facility] Comment on above: Performed By: #### U MICRO, ERUR #### [facility] [address] [place] [address] Dr. Graciela Paz Protein (U) [Mass/Vol] 300 mg/dL Abnormal NEGATIVE/ TRACE [facility] Comment on above: Performed By: #### U MICRO, ERUR #### [facility] [address] [place] [address] Dr. Graciela Paz SPEC GRAVITY 1.030 Abnormal 1.005-<=1.[address] [facility] Comment on above: Performed By: #### U MICRO, ERUR #### [facility] [address] [place] [address] Dr. Graciela Paz UR MICRO IND INDICATED Normal [facility] Comment on above: Performed By: #### U MICRO, ERUR #### [facility] [address] [place] [address] Dr. Graciela Paz Urobilinogen Qn (U) 0.2 {Mi'U}/dL Normal 0.2 - 1. 0 [facility] Comment on above: Performed By: #### U MICRO, ERUR #### [facility] [address] [place] [address] Dr. Graciela Paz PROF 14(COMP METB)on 023 Albumin [Mass/Vol] 4.4 g/dL Normal 3.4-5.0 [facility] Comment on above: Performed By: #### C MP #### [facility] [address] [place] [address] Dr. Graciela Paz Albumin/Globulin [Mass ratio] 1.2 {ratio} Normal [facility] Comment on above: Performed By: #### C MP #### [facility] [address] [place] [address] Dr. Graciela Paz ALP [Catalytic activity/Vol] 105 U/L Normal 46-116 [facility] Comment on above: Performed By: #### C MP #### [facility] [address] [place] [address] Dr. Graciela Paz ALT [Catalytic activity/Vol] 54 U/L Normal 14-59 [facility] Comment on above: Performed By: #### C MP #### [facility] [address] [place] [address] Dr. Graciela Paz Anion gap [Moles/Vol] 13.9 mmol/L Normal [facility] Comment on above: Performed By: #### C MP #### [facility] [address] [place] [address] Dr. Graciela Paz AST [Catalytic activity/Vol] 38 U/L Critically high 15-37 [facility] Comment on above: Performed By: #### C MP #### [facility] [address] [place] [address] Dr. Graciela Paz Bilirubin [Mass/Vol] 0.5 mg/dL Normal 0.2-1.0 [facility] Comment on above: Performed By: #### C MP #### [facility] [address] [place] [address] Dr. Graciela Paz Calcium [Mass/Vol] 10.9 mg/dL Critically high 8.5-10.1 [facility] Comment on above: Performed By: #### C MP #### [facility] [address] [place] [address] Dr. Graciela Paz Chloride [Moles/Vol] 103 mmol/L Normal 98-107 [facility] Comment on above: Performed By: #### C MP #### [facility] [address] [place] [address] Dr. Graciela Paz CO2 [Moles/Vol] 24.1 mmol/L Normal 21.0-32.0 [facility] Comment on above: Performed By: #### C MP #### [facility] [address] [address] [address] Graciela Paz Creatinine [Mass/Vol] 0.60 mg/dL Normal 0.55-1.02 [facility] Comment on above: Performed By: #### C MP #### [facility] [address] [address] [address] Graciela Paz EGFR-AF RUSSIAN >60 Normal >=60 [facility] Comment on above: Performed By: #### C MP #### [facility] [address] [place] [address] Dr. Graciela Paz EGFR-NON AF RUSSIAN >60 Normal >=60 [facility] Comment on above: Performed By: #### C MP #### [facility] [address] [place] [address] Dr. Graciela Paz Globulin (S) [Mass/Vol] 3.7 g/dL Normal [facility] Comment on above: Performed By: #### C MP #### [facility] [address] [place] [address] Dr. Graciela Paz Glucose [Mass/Vol] 111 mg/dL Critically high 74-106 [facility] Comment on above: Performed By: #### C MP #### [facility] [address] [place] [address] Dr. Graciela Paz Potassium [Moles/Vol] 4.0 mmol/L Normal 3.5-5.1 [facility] Comment on above: Performed By: #### C MP #### [facility] [address] [place] [address] Dr. Graciela Paz Protein [Mass/Vol] 8.1 g/dL Normal 6.4-8.2 [facility] Comment on above: Performed By: #### C MP #### [facility] [address] [place] [address] Dr. Graciela Paz Sodium [Moles/Vol] 137 mmol/L Normal 136-145 [facility] Comment on above: Performed By: #### C MP #### [facility] [address] [address] [address] Graciela Paz Urea nitrogen [Mass/Vol] 11.0 mg/dL Normal 7.0-18.0 [facility] Comment on above: Performed By: #### C MP #### [facility] [address] [place] [address] Dr. Graciela Paz Urea nitrogen/Creatinine [Mass ratio] 18.3 mg/mg Normal [facility] Comment on above: Performed By: #### C MP #### [facility] [address] [address] [address] Graciela Paz URINE MICROSCOPIC ONLYon BACTERIA NONE SEEN Normal NONE SEEN [facility] Comment on above: Performed By: #### U MICRO, ERUR #### [facility] [address] [place] [address] Dr. Graciela Paz Bacteria identified Cx Nom (U) NOT INDICATED Normal [facility] Comment on above: Performed By: #### U MICRO, ERUR #### [facility] [address] [place] [address] Dr. Graciela Paz CAST NONE SEEN Normal NONE SEEN [facility] Comment on above: Performed By: #### U MICRO, ERUR #### [facility] [address] [place] [address] Dr. Graciela Paz Crystals LM Nom (Urine sed) NONE SEEN Normal NONE SEEN [facility] Comment on above: Performed By: #### U MICRO, ERUR #### [facility] [address] [place] [address] Dr. Graciela Paz Epithelial cells LM Ql (Urine sed) RARE Normal NONE SEEN /RARE [facility] Comment on above: Performed By: #### U MICRO, ERUR #### [facility] [address] [place] [address] Dr. Graciela Paz MUCOUS NONE SEEN Normal NONE SEEN [facility] Comment on above: Performed By: #### U MICRO, ERUR #### [facility] [address] [place] [address] Dr. Graciela Paz RBC (U) [#/Vol] /uL Abnormal 0-[address] [facility] Comment on above: Performed By: #### U MICRO, ERUR #### [facility] [address] [place] [address] Dr. Graciela Paz WBC 5-10 Abnormal NONE SEEN [facility] Comment on above: Performed By: #### U MICRO, ERUR #### [facility] [address] [place] [address] Dr. Graciela Paz PREG HCG QUALon 11-08-2022 , QUAL Negative Normal NEGATIVE [facility] Comment on above: Performed By: #### P REG #### [facility] [address] [place] [address] Dr. Graciela Paz CBC AUTO DIFFon 11-01-2022 BASO # 0.0 103/ul Normal 0.0-0.1 [facility] Comment on above: Performed By: #### C BC #### [facility] [address] [place] [address] Dr. Graciela Paz Basophils/100 WBC (Bld) 0.9 % Normal 0.2-2.0 [facility] Comment on above: Performed By: #### C BC #### [facility] [address] [place] [address] Dr. Graciela Paz EO # 0.3 103/ul Normal 0.0-0.7 [facility] Comment on above: Performed By: #### C BC #### [facility] [address] [place] [address] Dr. Graciela Paz Eosinophils/100 WBC (Bld) 5.9 % Normal 0.9-7.0 [facility] Comment on above: Performed By: #### C BC #### [facility] [address] [place] [address] Dr. Graciela Paz Erythrocyte distribution width (RBC) [Ratio] 13.0 % Normal 11.0-15.0 [facility] Comment on above: Performed By: #### C BC #### [facility] [address] [place] [address] Dr. Graciela Paz Hematocrit (Bld) [Volume fraction] 35.3 % Critically low 36.0-48.0 [facility] Comment on above: Performed By: #### C BC #### [facility] [address] [place] [address] Dr. Graciela Paz Hemoglobin (Bld) [Mass/Vol] 11.8 g/dL Critically low 12.0-16.0 [facility] Comment on above: Performed By: #### C BC #### [facility] [address] [place] [address] Dr. Graciela Paz IG # 0.01 10e3/ul Normal 0.00-0.03 [facility] Comment on above: Performed By: #### C BC #### [facility] [address] [place] [address] Dr. Graciela Paz IG % 0.2 % Normal 0.0-0.5 [facility] Comment on above: Performed By: #### C BC #### [facility] [address] [place] [address] Dr. Graciela Paz LYMPH # 1.3 103/ul Normal 1.2-3.8 [facility] Comment on above: Performed By: #### C BC #### [facility] [address] [place] [address] Dr. Graciela Paz Lymphocytes/100 WBC (Bld) 28.8 % Normal 20.5-60.0 [facility] Comment on above: Performed By: #### C BC #### [facility] [address] [place] [address] Dr. Graciela Paz MANUAL DIFF REQ NO Normal [facility] Comment on above: Performed By: #### C BC #### [facility] [address] [place] [address] Dr. Graciela Paz MCH (RBC) [Entitic mass] 30.0 pg Normal 26.7-34.0 [facility] Comment on above: Performed By: #### C BC #### [facility] [address] [place] [address] Dr. Graciela Paz MCHC (RBC) [Mass/Vol] 33.4 g/dL Normal 29.9-35.2 [facility] Comment on above: Performed By: #### C BC #### [facility] [address] [address] [address] Graciela Paz MCV (RBC) [Entitic vol] 89.8 fL Normal 81.0-99.0 [facility] Comment on above: Performed By: #### C BC #### [facility] [address] [address] [address] Graciela Paz MONO # 0.5 103/ul Normal 0.3-0.8 [facility] Comment on above: Performed By: #### C BC #### [facility] [address] [address] [address] Graciela Paz Monocytes/100 WBC (Bld) 10.3 % Normal 1.7-12.0 [facility] Comment on above: Performed By: #### C BC #### [facility] [address] [address] [address] Graciela Paz NEUT # 2.4 103/ul Normal 1.4-6.5 [facility] Comment on above: Performed By: #### C BC #### [facility] [address] [address] [address] Graciela Paz Neutrophils/100 WBC (Bld) 53.9 % Normal 43.0-75.0 [facility] Comment on above: Performed By: #### C BC #### [facility] [address] [address] [address] Graciela Paz Platelet mean volume (Bld) [Entitic vol] 9.2 fL Critically low 9.5-13.5 [facility] Comment on above: Performed By: #### C BC #### [facility] [address] [address] [address] Graciela Paz PLT 132 103/ul Critically low 150-450 [facility] Comment on above: Performed By: #### C BC #### [facility] [address] [address] [address] Graciela Paz RBC 3.93 106/ul Critically low 4.20-5.40 [facility] Comment on above: Performed By: #### C BC #### [facility] [address] [address] [address] Graciela Paz WBC 4.4 103/ul Normal 4.0-11.0 [facility] Comment on above: Performed By: #### C BC #### [facility] [address] [address] [address] Graciela Paz PROF CHEM 8 (BAS METB)on Anion gap [Moles/Vol] 12.8 mmol/L Normal [facility] Comment on above: Performed By: #### B MP #### [facility] [address] [address] [address] Graciela Paz Calcium [Mass/Vol] 10.1 mg/dL Normal 8.5-10.1 [facility] Comment on above: Performed By: #### B MP #### [facility] [address] [address] [address] Graciela Paz Chloride [Moles/Vol] 106 mmol/L Normal 98-107 [facility] Comment on above: Performed By: #### B MP #### [facility] [address] [address] [address] Graciela Paz CO2 [Moles/Vol] 25.2 mmol/L Normal 21.0-32.0 [facility] Comment on above: Performed By: #### B MP #### [facility] [address] [address] [address] Graciela Paz Creatinine [Mass/Vol] 0.44 mg/dL Critically low 0.55-1.02 [facility] Comment on above: Performed By: #### B MP #### [facility] [address] [address] [address] Graciela Paz EGFR-AF RUSSIAN >60 Normal >=60 [facility] Comment on above: Performed By: #### B MP #### [facility] [address] [place] [address] Dr. Graciela Paz EGFR-NON AF RUSSIAN >60 Normal >=60 [facility] Comment on above: Performed By: #### B MP #### [facility] [address] [address] [address] Graciela Paz Glucose [Mass/Vol] 96 mg/dL Normal 74-106 [facility] Comment on above: Performed By: #### B MP #### [facility] [address] [address] [address] Graciela Paz Potassium [Moles/Vol] 4.2 mmol/L Normal 3.5-5.1 [facility] Comment on above: Performed By: #### B MP #### [facility] [address] [address] [address] Graciela Paz Sodium [Moles/Vol] 140 mmol/L Normal 136-145 [facility] Comment on above: Performed By: #### B MP #### [facility] [address] [address] [address] Graciela Paz Urea nitrogen [Mass/Vol] 9.0 mg/dL Normal 7.0-18.0 [facility] Comment on above: Performed By: #### B MP #### [facility] [address] [address] [address] Graciela Paz Urea nitrogen/Creatinine [Mass ratio] 20.5 mg/mg Normal [facility] Comment on above: Performed By: #### B MP #### [facility] [address] [address] [address] Graciela Paz PROTIMEon 11-01-2022 INR Coag (PPP) [Relative time] 0.97 {INR} Normal [facility] Comment on above: Performed By: #### P T, PTT ####[facility] [address] [address] Graciela Paz INR GUIDELINES SEE BELOW Normal [facility] Comment on above: Result Comment: JONATHON RED INR: 2.0 - 3.0 CONDITIONS NOT LISTED BELOW 2.5 - 3.5 FOR PROSTHETIC HEART VALVE REPLACEMENT 2.5 - 3.5 RECURRENT THROMBOSIS Performed By: #### P T, PTT ####[facility] [address] [address]Dr. Graciela Paz PT Coag (PPP) [Time] 10.3 s Normal 9.0-11.6 [facility] Comment on above: Performed By: #### P T, PTT ####[facility] [address] [place], [place] [address]IsGena Paz PTTon 11-01-2022 aPTT Coag (Bld) [Time] 26.8 s Normal 22.3-36.2 [facility] Comment on above: Performed By: #### P T, PTT ####[facility] [address] [place], [place] [address] ABD/PELV WO W CONon 08-28 CT ABD/PELV WO W CON INDICATION: Silver hematuria EXAMINATION: CT ABDOMEN AND PELVIS WITH [...] by: KAYCE SANDS Date: 2022-08-28 15:34 Normal [facility] ESTRADIOLon 03-15-2020 ESTRADIOL 20 pg/mL Normal [facility] [place] Comment on above: Result Comment: REF VALUES FOLLICULAR PHASE 20-144 MID CYCLE 64-357 LUTEAL PHASE 56-214 POSTMENOPAUSE < 32 PREPUBERTY < 20 FEMALE 10-18Y 8-110 MALE 10-18Y < 20 ADULT MALE < 40 Performed By: #### E STRA #### [facility] [address] [place] [address] FOLLICLE STIM. HORMONEon FOLLICLE STIM. HORMONE 72.5 IU/L Normal [facility] [place] Comment on above: Result Comment: REF VALUES FOLLICULAR 2-12 MID-CYCLE 12-25 LUTEAL PHASE 2-12 MENOPAUSE 30-150 PREPUBERTY 50% ADULT ADULT MALE 2-10 INFANTS 0-1 Performed By: #### F SH #### [facility] [address] [place] [address] GGTon 03-15-2020 Gamma glutamyl transferase [Catalytic activity/Vol] 26 U/L Normal 5 - 55 [facility] [place] Comment on above: Performed By: #### G GT #### [facility] [address] [place], [place] [id number] GLUCOSEon 03-15-2020 Glucose [Mass/Vol] 91 mg/dL Normal 74 - 99 [facility] Comment on above: Performed By: #### G EDGAR #### [facility] [address] [place], [place] [id number] HEMOGLOBIN A1Con 03-15-2020 HbA1c (Bld) [Mass fraction] 5.3 % Normal [facility] [place] Comment on above: Result Comment: Diag nosis of Diabetes-Adults Non-Diabetic: < or = 5.6% Increased risk for developing diabetes: 5.7-6.4% Diagnostic of diabetes: > or = 6.5% . Monitoring of Diabetes Age (y) Therapeutic Goal (%) Adults: >18 <7.0 Pediatrics: 13-18 <7.5 7-12 <8.0 0- 6 7.5-8.5 [place] Diabetes Association. Diabetes Care 33(S1), Aug 2009. Performed By: #### H BA1E #### [facility] [address] [place] [address] HbA1c (Bld) [Mass fraction] 105 MG/DL Normal [facility] [place] Comment on above: Performed By: #### H BA1E #### [facility] [address] [place] [address] HEPATIC FUNCTION PANELon Albumin [Mass/Vol] 4.1 g/dL Normal 3.4 - 5.0 [facility] Comment on above: Performed By: #### H EPFP #### [address] [id number] ALP [Catalytic activity/Vol] 113 U/L High 33 - 110 [facility] [place] Comment on above: Performed By: #### H EPFP #### [address] [id number] ALT [Catalytic activity/Vol] 29 U/L Normal 7 - 45 [facility] [place] Comment on above: Result Comment: Amy ents treated with Sulfasalazine may generate falsely decreased results for ALT. Performed By: #### H EPFP #### [address] [id number] AST [Catalytic activity/Vol] 24 U/L Normal 9 - 39 [facility] [place] Comment on above: Performed By: #### H EPFP #### [address] [id number] Bilirubin [Mass/Vol] 0.4 mg/dL Normal 0.0 - 1.2 [facility] Comment on above: Performed By: #### H EPFP #### [address] [id number] Bilirubin.direct [Mass/Vol] 0.1 mg/dL Normal 0.0 - 0.3 [facility] [place] Comment on above: Performed By: #### H EPFP #### [address] [id number] Protein [Mass/Vol] 6.9 g/dL Normal 6.4 - 8.2 [facility] Comment on above: Performed By: #### H EPFP #### [address] [id number] LIPID PANEL (CORONARY RISK 2 )on 03-15-2020 Cholesterol [Mass/Vol] 203 mg/dL High 0 - 199 [facility] [place] Comment on above: Result Comment: . AGE [...] dosing. Performed By: #### L IPID #### [address] [id number] Cholesterol in HDL [Mass/Vol] 32.0 mg/dL Abnormal [facility] [place] Comment on above: Result Comment: . AGE VERY LOW LOW NORMAL HIGH 0-19 Y < 35 < 40 40-45 ---- 20-24 Y ---- < 40 >45 ---- >24 Y ---- < 40 40-60 >60 . Performed By: #### L IPID #### [address] [place] [id number] Cholesterol in LDL [Mass/Vol] 130 mg/dL High 0 - 109 [facility] [place] Comment on above: Result Comment: . NEAR BORD AGE DESIRABLE OPTIMAL HIGH HIGH VERY HIGH 0-19 Y 0 - 109 --- 110-129 >/= 130 ---- 20-24 Y 0 - 119 --- 120-159 >/= 160 ---- >24 Y 0 - 99 100-129 130-159 160-189 >/=190 . Performed By: #### L IPID #### [address] [id number] Cholesterol in VLDL [Mass/Vol] 41 mg/dL High 0 - 40 [facility] [place] Comment on above: Performed By: #### L IPID #### [address] [id number] Cholesterol.total/Cho lesterol in HDL [Mass ratio] 6.3 {ratio} Abnormal [facility] [place] Comment on above: Result Comment: REF VALUES DESIRABLE < 3.4 HIGH RISK > 5.0 Performed By: #### L IPID #### [address] [id number] NON-HDL CHOLESTEROL 171 mg/dL High 0 - 119 [facility] Comment on above: Result Comment: AGE DESIRABLE BORDERLINE HIGH HIGH VERY HIGH 0-19 Y 0 - 119 120 - 144 >/= 145 >/= 160 20-24 Y 0 - 149 150 - 189 >/= 190 ---- >24 Y 30 MG/DL ABOVE LDL CHOLESTEROL GOAL . Performed By: #### L IPID #### [address] [id number] Triglyceride [Mass/Vol] 206 mg/dL High 0 - 149 [facility] [place] Comment on above: Result Comment: . AGE [...] dosing. Performed By: #### L IPID #### [address] [id number] LUTEINIZING HORMONEon 2019 LUTEINIZING HORMONE 29.3 IU/L Normal [facility] Comment on above: Result Comment: REF VALUES FOLLICULAR PHASE 1.9-12.5 MID-CYCLE 8.7-76.3 LUTEAL PHASE 0.5-16.9 POST MENOPAUSE 5.0-55.2 CHILDREN 0- 6.0 ADULT MALE 18-70 1.5- 9.3 ADULT MALE >70 3.1-34.6 Performed By: #### L H #### [facility] [address] [place] [address] THYROXINE,FREEon 03-15-2020 THYROXINE,FREE 0.80 ng/dL Normal 0.61 - 1.12 [facility] [place] Comment on above: Result Comment: Thyr oxine Free testing is performed using different testing methodology at [facility] than at other [facility]. Direct [...] draw. Performed By: #### T 4FRE #### [address] [id number] TSHon 03-15-2020 TSH Qn 4.05 m[IU]/L High 0.44 - 3.98 [facility] [place] Comment on above: Result Comment: TSH testing is performed using different testing methodology at [facility] than at other [facility]. Direct result comparisons should only be made within the same method. Performed By: #### T SH2 #### [address] [id number] TTG AB,IGAon 03-15-2020 TTG AB,IGA <1 Normal 0 - 14 [facility] [place] Comment on above: Result Comment: Rachell ac disease is unlikely. False negative Tissue Transglutaminase Antibody, IgA results can occur in approximately 10% of patients with celiac disease, patients already adhering to a gluten-free diet, or patients with IgA deficiency. Performed By: #### H EPFP #### [address] [id number] MRA CHEST W WO CONTRASTon MRA CHEST W WO CONTRAST [facility] Department of Radiology [address] [place] [id number] Patient Name: KEYONA ATKINS : 2000 Sex: F Age: Race: White Pt. 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 Electronically signed by:Radha Orozco. Transcribed by: [email or web address], User Resident: Electronically Signed by: RADHA OROZCO @ 04/23/2019 01:10 PM Normal [facility] Comment on above: Order Comment: , , = ========= , Ordering Provider - DEMAR COOMBS MD , MRA HEAD WO CONTRASTon 04-22 MRA HEAD WO CONTRAST [facility] Department of Radiology [address] [place] [address] Patient Name: KEYONA ATKINS : 2000 Sex: F Age: Race: White Pt. Location: Patient Status: D Ordered Date: 03/24/2019 3:30:00 PM Completed Date: 04/22/2019 12:59 PM Requesting Provider: DEMAR SCHUSTER Attending Provider: DEMAR SCHUSTER Report Copy To: MARIA DE JESUS CASTRO Signs & Symptoms: I10 Essential (primary) hypertension I10 History: [place], No FB per mother Sunday [place] auth # [id number] 03/28/19-04/27/19 [id number] *er Comments: , , , Ordering Provider [...] findings. Electronically signed by:Ayana Cary. Transcribed by: [email or web address], User Resident: BARAK FOREMAN Electronically Signed by: AYANA CARY @ 04/23/2019 06:22 PM I personally read this/these film(s) with this resident Normal [facility] Comment on above: Order Comment: , , = ========= , Ordering Provider - DEMAR COOMBS MD , MRI CARDIAC WITH AND WITHOUT CONTRASTon 04-22-2019 MRI CARDIAC WITH AND WITHOUT CONTRAST [facility] Department of Radiology [address] [place] [phone] Patient Name: KEYONA ATKINS : 2000 Sex: F Age: Race: White Pt. 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 Electronically signed by:Radha Orozco. Transcribed by: [email or web address], User Resident: Electronically Signed by: RADHA OROZCO @ 04/23/2019 01:10 PM Normal [facility] Comment on above: Order Comment: , [...] syndrome. 2. Probable hepatic steatosis. Interpreted by: Mmii Thomas MD Signed by: Mimi Thomas MD on 10/10/2018 12:02 PM Normal Estradiol, E2on 09-25-2018 Estradiol, E2 Normal Comment on above: Result Comment: <10 Unit: [...] year earlier in obese girls and in -[place] girls. Progression through Cyrus stages is variable. Cyrus stage V (adult) should be reached by age 18. ADDITIONAL INFORMATION This test was developed and its performance characteristics determined by [facility] in a manner consistent with CLIA requirements. This test has not been cleared or approved by the U.S. Food and Drug Administration. Performed at [facility] [place] [address], [address] , [place] [address] Anti TPO ABon 09-24-2018 Anti TPO AB 2884 IU/mL High <35 FSHon 09-24-2018 FSH 55.73 mIU/mL Normal Comment on above: Result Comment: (NOTE) FSH [...] 0.8-7.0 LHon 09-24-2018 LH 13.07 mIU/mL Normal Comment on above: Result Comment: (NOTE) LH [...] 0.2-5.8 Thyroglobulin Antibodyon Thyroglobulin Antibody 13.3 High Comment on above: Result Comment: Refe rence range: 0.0 to 4.0 Unit: IU/mL (NOTE) INTERPRETIVE INFORMATION: Thyroglobulin Antibody A value of 4.0 IU/mL or less indicates a negative result for thyroglobulin antibodies. The Thyroglobulin Antibody assay is being performed using the Michael [place] Access DxI method. Performed by [facility], [address] [place] [id number] [email or web address], Yobany Srivastava MD, Lab. Director Performed at [facility] [address] Performed By: #### X THYRG #### Performed at [facility], [address] [place] [address] Comprehensive Metabolic Pane marlo 09-23-2018 Albumin [Mass/Vol] 4.5 g/dL Normal 3.4-5.2 [facility] ALP [Catalytic activity/Vol] 117 U/L High 54-96 ALT [Catalytic activity/Vol] 18 U/L Normal <40 AST [Catalytic activity/Vol] 22 U/L Normal 15-50 Bilirubin Ql (U) 0.2 mg/dL Normal 0.1-1.0 [facility] Calcium [Mass/Vol] 10.4 mg/dL Normal 8-10.5 [facility] Chloride [Moles/Vol] 107 mmol/L High 95-[address] [facility] CO2 [Moles/Vol] 20 mmol/L Low 24-35 [facility] Creatinine [Mass/Vol] 0.46 mg/dL Low 0.5-0.8 [facility] Comment on above: Result Comment: Note : New reference intervals, effective July 09, 2018. Glucose [Mass/Vol] 122 mg/dL High 60-115 [facility] Potassium [Moles/Vol] 4.0 mmol/L Normal 3.7-5.3 [facility] Protein [Mass/Vol] 7.8 g/dL Normal 6.4-8.4 [facility] Sodium [Moles/Vol] 138 mmol/L Normal 135-145 [facility] Urea nitrogen [Mass/Vol] 12 mg/dL Normal 5-18 Free T4on 09-23-2018 Free T4 [Mass/Vol] 0.8 ng/dL Normal 0.7-2.1 [facility] Hemoglobin A1Con 09-23-2018 HbA1c (Bld) [Mass fraction] 5.2 % Normal 4.0-5.6 HbA1c (Bld) [Mass fraction] 103 mg/dL Normal Comment on above: Result Comment: The eAG is derived from the A1c result using a calculation from the Diabetes Control and Complication trial and reflects the average blood glucose over approximately the past 120 days, but weighted to the past 30 days. Lipid Profileon 09-23-2018 Cholesterol [Mass/Vol] 225 mg/dL High 95-195 Comment on above: Performed By: #### L IPP #### Performed at [address] [address] Cholesterol in HDL [Mass/Vol] 34 mg/dL Low 40-58 Comment on above: Performed By: #### L IPP #### Performed at [address] [address] Cholesterol in LDL [Mass/Vol] 113 mg/dL Normal 73-117 Comment on above: Performed By: #### L IPP #### Performed at [address] [address] Triglyceride [Mass/Vol] 390 mg/dL High 29-200 Comment on above: Performed By: #### L IPP #### Performed at [address] [address] VLDL Cholesterol 78 mg/dL High 6-20 [facility] Comment on above: Performed By: #### L IPP #### Performed at [address] [address] Hours Fasting Patient not fasting Normal [facility] Comment on above: Performed By: #### L IPP #### Performed at [address] [address] TSHon 09-23-2018 TSH Qn 6.008 uIU/mL High 0.4-4.0 Vitamin D 25 Hydroxyon 09-23 Vitamin D 25 Hydroxy 20 ng/mL Low 30-120 [facility] Comment on above: Result Comment: (NOTE) <20 considered deficient. 21-29 considered insufficient. Reference ranges are based on Endocrine Society criteria. CREATININE,SERUMon 8 Creatinine [Mass/Vol] Unable to calculat e GFR due to inappropriate age/gender/creatinin e value. Normal [facility] Comment on above: Performed By: #### C REAT #### Testing performed at [address] [address] Creatinine [Mass/Vol] 0.5 mg/dL Low 0.52-1.04 [facility] Comment on above: Performed By: #### C REAT #### Testing performed at [address] [address] CHEST WITH CONTRASTon CT CHEST WITH [...] absence of the inferior vena cava. Normal [facility] IMPRESSION: 1. There is bovine [...] inferior vena cava. Invalid Interpretation Code RADIOLOGY [id number],IGAon 2017 TTG- IGA <2 Normal 0-3 [facility] Comment on above: Result Comment: (NOT E) Negative 0 - 3 Weak Positive 4 - 10 Positive >10 Tissue Transglutaminase (tTG) has been identified as the endomysial antigen. Studies have demonstr- ated that endomysial IgA antibodies have over 99% specificity for gluten sensitive enteropathy. PERFORMED AT [facility] Performed By: #### C MPF, TSH2, LIP2, T42, ACBC #### [place] [address] #### LTTG #### [place] [address] 25 0H VITAMIN D LEVELon 06-13 25 0H VITAMIN D LEVEL 16.5 NG/ML Low >30 [facility] Comment on above: Result Comment: DEFICIENT <20 NG/ML INSUFFICIENT 20-<30 NG/ML SUFFICIENT 30-100 NG/ML POTENTIAL TOXICITY >100 NG/ML Performed By: #### V ITD #### Testing [place] [address] CBCon 06-22-2018 ABSOLUTE BAS 0.0 X10 Normal [facility] Comment on above: Performed By: #### C MPF, TSH2, LIP2, T42, ACBC #### Testing performed at [place] [id number] #### LTTG #### Testing performed at [address] [address] ABSOLUTE EOS 0.30 X10 Normal [facility] Comment on above: Performed By: #### C MPF, TSH2, LIP2, T42, ACBC #### Testing performed at [address] [address] #### LTTG #### Testing performed at [address] [place] [address] ABSOLUTE NEUTROPHIL COUNT 3.0 x10 Normal 1.0-7.0 [facility] Comment on above: Performed By: #### C MPF, TSH2, LIP2, T42, ACBC #### Testing performed at [address] [address] #### LTTG #### Testing performed at [address] [place] [place] [address] Basophils/100 WBC (Bld) 0.5 % Normal 0.0-2.0 [facility] Comment on above: Performed By: #### C MPF, TSH2, LIP2, T42, ACBC #### Testing performed at [address] [address] #### LTTG #### Testing performed at [address] [place] [address] DTYPE AUTO DIFF Normal [facility] Comment on above: Performed By: #### C MPF, TSH2, LIP2, T42, ACBC #### Testing performed at [address] [address] #### LTTG #### Testing performed at [address] [place] [address] Eosinophils/100 WBC (Bld) 4.8 % Normal 0.0-11.0 [facility] Comment on above: Performed By: #### C MPF, TSH2, LIP2, T42, ACBC #### Testing performed at [address] [address] #### LTTG #### Testing performed at [address] [place] [address] Lymphocytes (Bld) [#/Vol] 1.50 X10 Normal [facility] Comment on above: Performed By: #### C MPF, TSH2, LIP2, T42, ACBC #### Testing performed at [address] [address] #### LTTG #### Testing performed at [address] [place] [place] [address] Lymphocytes/100 WBC (Bld) 29.0 % Normal 20.0-55.0 [facility] Comment on above: Performed By: #### C MPF, TSH2, LIP2, T42, ACBC #### Testing performed at [address] [address] #### LTTG #### Testing performed at [place] [address] [place] [address] Monocytes (Bld) [#/Vol] 0.5 X10 Normal [facility] Comment on above: Performed By: #### C MPF, TSH2, LIP2, T42, ACBC #### Testing performed at [address] [address] #### LTTG #### Testing performed at [address] [place] [address] Monocytes/100 WBC (Bld) 9.6 % Normal 0.0-10.0 [facility] Comment on above: Performed By: #### C MPF, TSH2, LIP2, T42, ACBC #### Testing performed at [address] [address] #### LTTG #### Testing performed at [address] [address] Neutrophils/100 WBC (Bld) 56.1 % Normal 37.0-75.0 [facility] Comment on above: Performed By: #### C MPF, TSH2, LIP2, T42, ACBC #### Testing performed at [address] [address] #### LTTG #### Testing performed at [address] [address] Erythrocyte distribution width (RBC) [Ratio] 15.2 % High 11.5-14.5 [facility] Comment on above: Performed By: #### C MPF, TSH2, LIP2, T42, ACBC #### Testing performed at [address] [address] #### LTTG #### Testing performed at [address] [place] [address] Hematocrit (Bld) [Volume fraction] 37.0 % Normal 36.0-48.0 [facility] Comment on above: Performed By: #### C MPF, TSH2, LIP2, T42, ACBC #### [place] [address] #### LTTG #### Testing performed at [address] [address] Hemoglobin (Bld) [Mass/Vol] 12.1 g/dL Normal 12.0-16.0 [facility] Comment on above: Performed By: #### C MPF, TSH2, LIP2, T42, ACBC #### [place] [address] #### LTTG #### Testing performed at [address] [address] MCH (RBC) [Entitic mass] 28.1 pg Normal 26.0-35.0 [facility] Comment on above: Performed By: #### C MPF, TSH2, LIP2, T42, ACBC #### Testing performed at [address] [address] #### LTTG #### Testing performed at [address] [address] MCHC (RBC) [Mass/Vol] 32.7 g/dL Normal 27.0-37.0 [facility] Comment on above: Performed By: #### C MPF, TSH2, LIP2, T42, ACBC #### [place] [address] #### LTTG #### Testing performed at [address] [address] MCV (RBC) [Entitic vol] 85.8 fL Normal 80.0-100.0 [facility] Comment on above: Performed By: #### C MPF, TSH2, LIP2, T42, ACBC #### Testing performed at [address] [address] #### LTTG #### Testing performed at [place] [address] [place] [address] Platelet mean volume (Bld) [Entitic vol] 8.2 fL Normal 7.4-11.0 [facility] Comment on above: Performed By: #### C MPF, TSH2, LIP2, T42, ACBC #### Testing performed at [address] [address] #### LTTG #### Testing performed at [address] [place] [address] Platelets (Bld) [#/Vol] 194 /cmm Normal 130.0-400.0 [facility] Comment on above: Performed By: #### C MPF, TSH2, LIP2, T42, ACBC #### Testing performed at [address] [address] #### LTTG #### Testing performed at [address] [address] RBC (Bld) [#/Vol] 4.32 /cmm Normal 4.0-5.4 [facility] Comment on above: Performed By: #### C MPF, TSH2, LIP2, T42, ACBC #### Testing performed at [address] [address] #### LTTG #### Testing performed at [address] [place] [address] WBC (Bld) [#/Vol] 5.3 /cmm Normal 3.6-13.0 [facility] Comment on above: Performed By: #### C MPF, TSH2, LIP2, T42, ACBC #### Testing performed at [address] [address] #### LTTG #### Testing performed at [address] [place] [place] [address] CMP FASTINGon 06-22-2018 Calcium [Mass/Vol] 10.0 mg/dL Normal 8.8-10.7 [facility] Comment on above: Performed By: #### C MPF, TSH2, LIP2, T42, ACBC #### Testing performed at [address] [address] #### LTTG #### Testing performed at [place] [address] [place] [address] Chloride [Moles/Vol] 104 mmol/L Normal 98-107 [facility] Comment on above: Performed By: #### C MPF, TSH2, LIP2, T42, ACBC #### Testing performed at [address] [address] #### LTTG #### Testing performed at [address] [place] [address] CO2 [Moles/Vol] 21 mmol/L Low 22-30 [facility] Comment on above: Performed By: #### C MPF, TSH2, LIP2, T42, ACBC #### Testing performed at [address] [address] #### LTTG #### Testing performed at [address] [place] [address] Glucose [Mass/Vol] 95 mg/dL Normal 70-100 [facility] Comment on above: Result Comment: NORMAL <100 mg/dL PREDIABETES 101-126 mg/dL DIABETES 126 mg/dL or higher Performed By: #### C MPF, TSH2, LIP2, T42, ACBC #### Testing performed at [address] [address] #### LTTG #### Testing performed at [address] [place] [address] Potassium [Moles/Vol] 4.0 mmol/L Normal 3.5-5.1 [facility] Comment on above: Performed By: #### C MPF, TSH2, LIP2, T42, ACBC #### Testing performed at [address] [address] #### LTTG #### Testing performed at [address] [place] [address] Sodium [Moles/Vol] 137 mmol/L Normal 136-145 [facility] Comment on above: Performed By: #### C MPF, TSH2, LIP2, T42, ACBC #### Testing performed at [address] [address] #### LTTG #### Testing performed at [address] [place] [address] A:G RATIO 1.4 RATIO Normal 1.3-2.2 [facility] Comment on above: Performed By: #### C MPF, TSH2, LIP2, T42, ACBC #### Testing performed at [address] [address] #### LTTG #### Testing performed at [address] [address] Albumin [Mass/Vol] 4.3 G/dl Normal 3.5-5.0 [facility] Comment on above: Performed By: #### C MPF, TSH2, LIP2, T42, ACBC #### Testing performed at [address] [address] #### LTTG #### Testing performed at [address] [address] ALP [Catalytic activity/Vol] 149 U/L High 38-126 [facility] Comment on above: Performed By: #### C MPF, TSH2, LIP2, T42, ACBC #### Testing performed at [address] [address] #### LTTG #### Testing performed at [address] [address] ALT [Catalytic activity/Vol] 21 U/L Normal 14-54 [facility] Comment on above: Performed By: #### C MPF, TSH2, LIP2, T42, ACBC #### Testing performed at [address] [address] #### LTTG #### Testing performed at [address] [place] [address] AST [Catalytic activity/Vol] 23 U/L Normal 15-41 [facility] Comment on above: Performed By: #### C MPF, TSH2, LIP2, T42, ACBC #### Testing performed at [address] [address] #### LTTG #### Testing performed at [address] [place] [address] Bilirubin [Mass/Vol] 0.6 mg/dL Normal 0.2-1.9 [facility] Comment on above: Performed By: #### C MPF, TSH2, LIP2, T42, ACBC #### Testing performed at [address] [address] #### LTTG #### Testing performed at [address] [place] [address] Creatinine [Mass/Vol] 0.5 mg/dL Low 0.52-1.04 [facility] Comment on above: Performed By: #### C MPF, TSH2, LIP2, T42, ACBC #### Testing performed at [address] [address] #### LTTG #### Testing performed at [address] [address] GFR/1.73 sq M predicted among non-blacks MDRD (S/P/Bld) [Vol rate/Area] Unable to calculate GFR due to inappropriate age/gender/creatinin e value. Normal [facility] Comment on above: Performed By: #### C MPF, TSH2, LIP2, T42, ACBC #### Testing performed at [address] [address] #### LTTG #### Testing performed at [address] [place] [address] Protein [Mass/Vol] 7.4 g/dL Normal 6.3-8.6 [facility] Comment on above: Performed By: #### C MPF, TSH2, LIP2, T42, ACBC #### Testing performed at [address] [address] #### LTTG #### Testing performed at [address] [place] [address] Urea nitrogen [Mass/Vol] 10 mg/dL Normal 7-20 [facility] Comment on above: Performed By: #### C MPF, TSH2, LIP2, T42, ACBC #### Testing performed at [address] [address] #### LTTG #### Testing performed at [address] [place] [address] FREE T4on 06-22-2018 Free T4 [Mass/Vol] 0.68 ng/dL Low 0.93-1.60 [facility] Comment on above: Performed By: #### C MPF, TSH2, LIP2, T42, ACBC #### Testing performed at [address] [address] #### LTTG #### Testing performed at [address] [place] [address] HEMOGLOBIN A1Con 06-22-2018 HbA1c (Bld) [Mass fraction] 5.2 % Normal <6 [facility] Comment on above: Result Comment: NORMAL <5.7% PREDIABETES 5.7-6.4% DIABETES 6.5% OR HIGHER Performed By: #### H A1CT #### Testing performed at [address] [address] HbA1c (Bld) [Mass fraction] 103 mg/dL Normal [facility] Comment on above: Performed By: #### H A1CT #### Testing performed at [address] [address] LIPID PROFILEon 06-22-2018 Cholesterol [Mass/Vol] 234 mg/dL High 82-199 [facility] Comment on above: Performed By: #### C MPF, TSH2, LIP2, T42, ACBC #### Testing performed at [address] [address] #### LTTG #### Testing performed at [facility], [address] [place] [address] [place] [address] Cholesterol in HDL [Mass/Vol] 39 mg/dL Low 40-60 [facility] Comment on above: Performed By: #### C MPF, TSH2, LIP2, T42, ACBC #### Testing performed at [address] [address] #### LTTG #### Testing performed at [address] [place] [address] [place] [address] Cholesterol in LDL [Mass/Vol] 154 mg/dL High 0-100 [facility] Comment on above: Performed By: #### C MPF, TSH2, LIP2, T42, ACBC #### Testing performed at [address] [address] #### LTTG #### Testing performed at [address] [address] Cholesterol in VLDL [Mass/Vol] 41 mg/dL High 5.0-25.0 [facility] Comment on above: Performed By: #### C MPF, TSH2, LIP2, T42, ACBC #### Testing performed at [address] [address] #### LTTG #### Testing performed at [address] [address] Cholesterol.total/Cho lesterol in HDL [Mass ratio] 6.00 {ratio} Normal [facility] Comment on above: Result Comment: RISK TOTAL/HDL RATIO MEN WOMEN 1/2 AVERAGE 3.43 3.27 AVERAGE 4.97 4.44 2X AVERAGE 9.55 7.05 3X AVERAGE 23.99 11.04 Performed By: #### C MPF, TSH2, LIP2, T42, ACBC #### Testing performed at [address] [address] #### LTTG #### Testing performed at [address] [place] [address] Triglyceride [Mass/Vol] 203 mg/dL High <150 [facility] Comment on above: Performed By: #### C MPF, TSH2, LIP2, T42, ACBC #### Testing performed at [address] [address] #### LTTG #### [facility] [place] [address] [place] [address] [place] [address] TSHon 06-22-2018 TSH Qn 5.424 uIU/ML Normal 0.36-5.80 [facility] Comment on above: Performed By: #### C MPF, TSH2, LIP2, T42, ACBC #### Testing performed at [address] [address] #### LTTG #### [facility] [address] [place] [address] [place] [address] Vital Signs Date Time Vital Sign Value Performing Clinician Facility 01-16-2024 08:55-0400 Blood Pressure Location Arelis Lue [facility] 01-16-2024 08:55-0400 Body temperature 98.6 [degF] Arelis Lue [facility] 01-16-2024 08:55-0400 Diastolic blood pressure 84 mm[Hg] Arelis Lue [facility] 01-16-2024 08:55-0400 Heart rate 67 /min Arelis Lue [facility] 01-16-2024 08:55-0400 Systolic blood pressure 132 mm[Hg] Arelis Lue [facility] 10-02-2023 13:02-0500 Blood Pressure Location MARIA DE JESUS ANTONIO [facility] 10-02-2023 13:02-0500 Diastolic blood pressure 69 mm[Hg] MARIA DE JESUS ANTONIO [facility] 10-02-2023 13:02-0500 Heart rate 80 /min MARIA DE JESUS PACO [facility] 10-02-2023 13:02-0500 Respiratory rate 16 /min MARIA DE JESUS PACO [facility] 10-02-2023 13:02-0500 Systolic blood pressure 121 mm[Hg] MARIA DE JESUS PACO [facility] 03-14-2023 09:07-0400 Blood Pressure Location Arelis Lue [facility] 03-14-2023 09:07-0400 Diastolic blood pressure 87 mm[Hg] Arelis Lue [facility] 03-14-2023 09:07-0400 Heart rate 109 /min Arelis Lue [facility] 03-14-2023 09:07-0400 Respiratory rate 16 /min Arelis Lue [facility] 03-14-2023 09:07-0400 Systolic blood pressure 137 mm[Hg] Arelis Lue [facility] 10-27-2022 09:45-0400 Blood Pressure Location Arelis Lue [facility] 10-27-2022 09:45-0400 Diastolic blood pressure 74 mm[Hg] Arelis Lue [facility] 10-27-2022 09:45-0400 Heart rate 93 /min Arelis Lue [facility] 10-27-2022 09:45-0400 Systolic blood pressure 120 mm[Hg] Arelis Yip [facility] 10-04-2018 08:20-0500 BMI (Body Mass Index) 41.7 kg/m2 [facility] 10-04-2018 08:20-0500 BP Diastolic 78 mm[Hg] [facility] 10-04-2018 08:20-0500 BP Systolic 118 mm[Hg] [facility] 10-04-2018 08:20-0500 Height 148.6 cm [facility] 10-04-2018 08:20-0500 Pulse (Heart Rate) 83 /min [facility] 10-04-2018 08:20-0500 Pulse Oximetry 97 % [facility] 10-04-2018 08:20-0500 Respiratory Rate 16 /min [facility] 10-04-2018 08:20-0500 Weight 92.08 kg [facility] 09-05-2018 09:01-0500 BMI (Body Mass Index) 41.29 kg/m2 [facility] Work Phone: 09-05-2018 09:01-0500 Body Temperature 98.01 [degF] [facility] Work Phone: 09-05-2018 09:01-0500 BP Diastolic 78 mm[Hg] [facility] Work Phone: 09-05-2018 09:01-0500 BP Systolic 122 mm[Hg] [facility] Work Phone: 09-05-2018 09:01-0500 Height 148.6 cm [facility] Work Phone: 09-05-2018 09:01-0500 Pulse (Heart Rate) 96 /min [facility] Work Phone: 09-05-2018 09:01-0500 Pulse Oximetry 98 % [facility] Work Phone: 09-05-2018 09:01-0500 Respiratory Rate 16 /min [facility] Work Phone: 09-05-2018 09:01-0500 Weight 91.17 kg [facility] Work Phone: 07-12-2018 08:26-0500 BMI (Body Mass Index) 42.13 kg/m2 [facility] Work Phone: 07-12-2018 08:26-0500 BP Diastolic 82 mm[Hg] [facility] Work Phone: 07-12-2018 08:26-0500 BP Systolic 126 mm[Hg] [facility] Work Phone: 07-12-2018 08:26-0500 Height 147.3 cm [facility] Work Phone: 07-12-2018 08:26-0500 Pulse (Heart Rate) 125 /min [facility] Work Phone: 07-12-2018 08:26-0500 Pulse Oximetry 97 % [facility] Work Phone: 07-12-2018 08:26-0500 Respiratory Rate 16 /min [facility] Work Phone: 07-12-2018 08:26-0500 Weight 91.44 kg [facility] Work Phone: Encounters Encounter Date Encounter Type Care Provider Facility Start: 10-22-2024 ambulatory Arelis Yip Facility:[facility] Start: 10-07-2024 ambulatory MARIA DE JESUS E PACO Facili ty:[facility] Start: 07-23-2024 End: 07-23-2024 ambulatory Arelis Yip Facility:[facility] Start: 01-23-2024 End: 01-24-2024 Pre-admission assessment Arelis Yip [facility] Start: 01-16-2024 End: 01-16-2024 ambulatory Arelis Yip Facility:[facility] Start: 01-16-2024 End: 01-16-2024 Patient encounter procedure Arelis Yip [facility] Start: 12-12-2023 End: 12-12-2023 ambulatory [facility] Facility:[facility] Start: 10-02-2023 End: 10-02-2023 ambulatory MARIA DE JESUS ANTONIO Facility:[facility] Start: 10-02-2023 End: 10-02-2023 Lab Drop off MARIA DE JESUS E PACO [facility] Start: 10-02-2023 End: 10-02-2023 ambulatory MARIA DE JESUS E PACO Facility:[facility] [place] Start: 10-02-2023 End: 10-02-2023 Patient encounter procedure MARIA DE JESUS E PACO [facility] Start: 09-19-2023 End: 09-19-2023 ambulatory Arelis Yip Facility:[facility] [place] Start: 09-19-2023 End: 09-19-2023 Patient encounter procedure Arelis Yip [facility] Start: 07-03-2023 End: 07-04-2023 ambulatory BARAK MABRY Facility:[facility] Start: 03-14-2023 End: 03-14-2023 Patient encounter procedure Arelis PrestonGena Yip [facility] Start: 11-13-2022 End: 11-13-[address] LIZ Avery Facility:[facility] Start: 11-13-2022 End: 11-13-2022 Patient encounter procedure Arelis PrestonGena Yip [facility] Start: 11-08-2022 End: 11-08-[address] ILIA COBB Facility:[facility] Start: 11-04-2022 Encounter for preprocedural cardiovascular examination ARELIS YIP . [facility] Start: 11-04-2022 Encounter for preprocedural laboratory examination ARELIS YIP . [facility] Start: 11-01-2022 End: 11-02-[address] ILIA COBB Facility:[facility] Start: 11-01-2022 End: 11-02-2022 Encounter for preprocedural cardiovascular examination DR ILIA COBB Facility:[facility] Start: 10-27-2022 End: 10-27-2022 Patient encounter procedure Arelis Yip [facility] Start: 08-26-2022 End: 08-27-[address] ILIA COBB Facility:[facility] Start: 11-29-2018 End: 11-29-2018 Eliel Monson Work Phone: [facility] Start: 10-04-2018 End: 10-04-2018 Letter encounter Hernesto Haque Work Phone: [facility] Start: 10-04-2018 End: 10-04-2018 Office outpatient visit 25 minutes Hernesto Haque Work Phone: [facility] Comment on above: 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); Aortic arch anomaly; Chronic pulmonary hypertension; Essential hypertension, benign; Inappropriate sinus tachycardia; Mixed hyperlipidemia; Lymphedema; Obstructive sleep apnea Start: 09-12-2018 End: 09-12-2018 Patient encounter procedure LASHAE HASTINGS [facility] Start: 09-12-2018 End: 09-12-2018 Office outpatient visit 15 minutes Lashae Hastings Work Phone: [facility] Comment on above: Excessive cerumen in left ear canal (Primary Dx); Abrasion of nose, initial encounter Start: 09-05-2018 End: 09-05-2018 Telephone encounter Ilia Monson Work Phone: [facility] Comment on above: Referral Start: 09-05-2018 Patient encounter procedure ILIA MONSON [facility] Start: 09-05-2018 End: 09-05-2018 Office outpatient visit 15 minutes Ilia Monson Work Phone: [facility] Comment on above: Umanzor's syndrome (P rimary Dx); Abnormal thyroid blood test; Mixed hyperlipidemia; Vitamin D deficiency Start: 08-30-2018 End: 08-30-2018 Letter encounter Hernesto Haque Work Phone: [facility] Start: 08-08-2018 End: 08-08-2018 Patient encounter procedure Hernesto Haque Work Phone: [facility] Comment on above: Arrived Start: 07-25-2018 End: 07-25-2018 Patient encounter procedure Hernesto Haque Work Phone: [facility] Comment on above: Pre-operative cardio vascular examination (Primary Dx) Start: 07-24-2018 End: 07-24-2018 Patient encounter procedure LASHAE TREVINO [facility] Start: 07-12-2018 End: 07-12-2018 Patient encounter procedure García Rojas Work Phone: [facility] Start: 07-12-2018 End: 07-12-2018 Office outpatient new 60 minutes Hernesto Haque Work Phone: [facility] Comment on above: Umanzor's syndrome (P rimary Dx); Abnormality of aortic arch branch; Tachycardia, unspecified; Morbid obesity; Mixed hyperlipidemia; Obstructive sleep apnea; Lymphedema of right lower extremity Start: 06-28-2018 End: 06-28-2018 Patient encounter procedure Addi Peterson [facility] Comment on above: Other Start: 06-26-2018 End: 06-26-2018 Patient encounter procedure Addi Peterson [facility] Comment on above: Results Start: 06-20-2018 End: 06-20-2018 Patient encounter procedure LASHAE TREVINO [facility] Start: 06-06-2018 Patient encounter procedure ILIA MONSON [facility] Procedures Date Procedure Procedure Detail Performing Clinician [...] Detail Author Start: 06-22-2019 Thyrotropin Qn TSH ASHLIE CHIU Start: 04-13-2019 Influenza vaccination INFLUENZ A VACCINE (Season Ended) [facility] Start: 03-07-2019 End: 03-07-2019 Office Visit 03/07/2019 Office Visit Cardiovascular Medicine Hernesto Haque II, MD [address] [place] [address] [phone] [facility] Start: 03-05-2019 End: 03-05-2019 Ambulatory 03/05/2019 Office Visit Family Medicine Ilia Monson PA [address] [place] [address] [phone] [facility] Start: 12-11-2018 End: 12-11-2018 Office Visit 12/11/2018 Office Visit Otolaryngology Thao Torres MD [address] [place] [address] [address] [phone] [facility] Start: 10-04-2018 End: 10-04-2018 Ambulatory 10/04/2018 Office Visit Cardiovascular Medicine Hernesto Haque II, MD [address] [place] [address] [phone] [facility] Start: 09-28-2018 End: 06-28-2019 LIPID PANEL W CALCULATED LDL LIPID PANEL W CALCULATED LDL Routine Mixed hyperlipidemia Expected: 09/28/2018, Expires: 06/28/2019 [facility] Work Phone: Comment on above: Expected: 09/28/2018 , Expires: 06/28/2019 Start: 09-28-2018 End: 06-28-2019 VITAMIN D (25-HYDROXY,TOTAL) VITAMIN D (25-HYDROXY,TOTAL) Routine Vitamin D deficiency Expected: 09/28/2018, Expires: 06/28/2019 [facility] Work Phone: Comment on above: Expected: 09/28/2018 , Expires: 06/28/2019 Start: 09-05-2018 End: 09-05-[address] [facility] Start: 08-30-2018 End: 08-30-2018 Ambulatory 08/30/2018 Office Visit Cardiovascular Medicine Hernesto Haque II, MD [address] [place] [address] [phone] [facility] Start: 07-25-2018 End: 07-25-2019 CREATININE SERUM CREATININE SERUM Routine Pre-operative cardiovascular examination Expected: 07/25/2018, Expires: 07/25/2019 [facility] Work Phone: Comment on above: Expected: 07/25/2018 , Expires: 07/25/2019 Start: 07-15-2018 End: 06-28-2019 TSH W/FT4 REFLEX TSH W/FT4 REFLEX Routine Abnormal thyroid blood test Expected: 07/15/2018, Expires: 06/28/2019 [facility] Work Phone: Comment on above: Expected: 07/15/2018 , Expires: 06/28/2019 Start: 07-12-2018 End: 07-12-2019 CT of thorax with contrast CT CHEST WITH CONTRAST Routine 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 Expected: 07/12/2018, Expires: 07/12/2019 [facility] Work Phone: Comment on above: Expected: 07/12/2018 , Expires: 07/12/2019 Start: 07-12-2018 End: 07-12-2018 Ambulatory 07/12/2018 Office Visit Cardiovascular Medicine Hernesto Haque II, MD [address] [place] [address] [phone] [facility] Start: 04-13-2018 Influenza vaccination INFLUENZA VACC INE (#1) [facility] Work Phone: Start: 04-13-2018 Influenza vaccinatio n given SEQUENTIAL INFLUENZA VACCINE (#1) [facility] Start: 2017 Meningococcal conjug ate vaccination [facility] Work Phone: Start: 2016 Vaccination for mingo n papillomavirus [facility] Start: 2014 HIV screening HIV SCREENING DISCUSSION [facility] Work Phone: Start: 2014 Varicella vaccination [facility] Work Phone: Start: 2012 Vaccination for mingo n papillomavirus HPV VACCINE ADOL (1 - Female 3-dose series) [facility] Work Phone: Start: 2008 DTAP/TDAP/TD VACCINE (1 - Tdap) DTAP/TDAP/TD VACCINE (1 - Tdap) [facility] Work Phone: Start: 2008 Tetanus, diphtheria and acellular pertussis vaccination DTAP VACCINES (1 - Tdap) [facility] Start: 2002 Hepatitis A immunization [facility] Work Phone: Start: 2002 Zanmzac-erilb-umxsgy a vaccination [facility] Work Phone: Start: 2001 Inactivated poliovir us vaccine (product) [facility] Work Phone: Start: 2001 Hepatitis B vaccination [facility] Work Phone: Start: 2001 Tetanus vaccination TETANUS EVERY 10 YR [facility] Ambulatory ECG VT ECG (OFFICE R EAD ONLY) Routine 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 Ordered: 07/12/2018 [facility] Work Phone: Comment on above: Ordered: 07/12/2018 Transthoracic echocardiography ECHOCARDIOGRAM Routine 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 Ordered: 07/12/2018 [facility] Work Phone: Comment on above: Ordered: 07/12/2018 Immunizations Immunization Date Immunization Notes Care Provider Resham cabral 04-01-2021 SARS-CoV-2 (COVID-19 ) mRNA BNT-162p7 vax Arelis Lue [facility] 03-11-2021 SARS-CoV-2 (COVID-19 ) mRNA BNT-162b2 vax Arelis Lue [facility] 11-07-2019 HPV, unspecified formulation Arelis Lue [facility] 07-09-2019 HPV, unspecified formulation Arelis Lue [facility] 05-06-2019 HPV, unspecified formulation Arelis Lue [facility] 04-29-2019 hepatitis A vaccine, unspecified formulation Arelis Lue [facility] 04-29-2019 meningococcal ACWY vaccine, unspecified formulation Arelis Lue [facility] 04-10-2019 influenza virus vacc ine, unspecified formulation Arelis Lue [facility] 09-05-2013 hepatitis A vaccine, unspecified formulation Arelis Lue [facility] 09-05-2013 meningococcal ACWY vaccine, unspecified formulation Arelis Lue [facility] 09-05-2013 tetanus toxoid, redu oj diphtheria toxoid, and acellular pertussis vaccine, adsorbed Arelis Lue [facility] 03-22-2006 diphtheria, tetanus toxoids and acellular pertussis vaccine Arelis Lue [facility] 03-22-2006 measles, mumps and rubella virus vaccine Arelis Lue [facility] 03-22-2006 poliovirus vaccine, unspecified formulation Arelis Lue [facility] 07-20-2004 influenza, whole Arelis Lue [facility] 06-29-2003 influenza virus vacc ine, unspecified formulation Arelis Lue [facility] 05-28-2003 diphtheria, tetanus toxoids and acellular pertussis vaccine Arelis Lue [facility] 05-28-2003 measles, mumps and rubella virus vaccine Arelis Lue [facility] 02-10-2002 DTaP, unspecified formulation Arelis Lue [facility] 02-10-2002 Hib, unspecified formulation Arelis Lue [facility] 02-10-2002 poliovirus vaccine, unspecified formulation Arelis Lue [facility] 2001 DTaP, unspecified formulation Arelis Lue [facility] 2001 poliovirus vaccine, unspecified formulation Arelis Lue [facility] 2001 DTaP, unspecified formulation Arelis Lue [facility] 2001 poliovirus vaccine, unspecified formulation Arelis Lue [facility] Payers Date Payer Category Payer Unknown xxxxxxxxxxxx 1. [id number] 2001 Unknown [id number] 2.16.84 [id number] 2001 Unknown [id number] 2.16.84 0.1.525798.3.579.2.593 2001 Unknown [id number] 2.16.84 0.1.624126.3.579.2.593 2001 Unknown [id number] 2.16.84 0.1.649771.3.579.2.593 2001 Unknown [id number] 2.16.8 40.1.058853.3.579.2.718 2001 Unknown [id number] 2.16.8 40.1.557201.3.579.2.718 2001 Unknown [id number] 2.16.8 40.1.636323.3.579.2.727 2001 Unknown [id number] 2.16.8 40.1.590402.3.579.2.727 2001 Unknown [id number] 2.16.8 40.1.602862.3.579.2.727 2001 Unknown [id number] 2.16.8 40.1.620182.3.579.2.727 2001 Unknown [id number] 2.16.8 40.1.215403.3.579.2.727 2001 Unknown [id number] 2.16.8 40.1.008733.3.579.2.727 2001 Unknown [id number] 2.16.8 40.1.866606.3.579.2.727 1974 Unknown [id number] 2.16.8 40.1.552200.3.579.2.903 1974 Unknown [id number] 2.16.8 40.1.073253.3.579.2.903 1974 Unknown [id number] 2.16.8 40.1.219757.3.579.2.903 1959 Unknown [id number] Social History Date Type Detail Facility Start: 07-12-2018 End: 01-16-2024 Tobacco smoking status NHIS Never smoker [facility] Sex Assigned At Not on file [facility] Work Phone: Tobacco smoking status Never [facility] Sex Assigned At Female [facility] Functional Status Date Assessment Result Facility 01-16-2024 Functional Status N/A [facility] 10-02-2023 Functional Status N/A [facility] 03-14-2023 Functional Status N/A [facility] 10-27-2022 Functional Status N/A [facility] Clinical Notes 10-27-2022 to 07-23-2024 Note Date & Type Note Facility 07-23-2024 Note Patient Education Obstetrics and Gynecology Kegel Exercises [...] Your provider may suggest Kegel exercises to: ??? Improve bladder and bowel control. ??? Improve sexual response. ??? Improve weak pelvic floor muscles after surgery to remove the uterus (hysterectomy) or after , in females. ??? Improve weak pelvic floor muscles after prostate [...] condition, your health care provider may recommend: ??? Varying how long you squeeze your muscles. ??? Doing several sets of exercises every day. ??? Doing exercises for several weeks. ??? Making Kegel exercises a part of your regular exercise routine. This information is not intended to replace advice given to you by your health care provider. Make sure you discuss any questions you have with your health care provider. Document Revised: 12/08/2021 Document Reviewed: 12/08/2021 [employer] Patient Education ? 2023 [facility] 01-16-2024 Hospital Discharg e instructions Patient Education [...] provider. Document Revised: 12/08/2021 Document Reviewed: 12/08/2021 [employer] Patient Education 2022 [employer]. Follow Up Care 01/14/2024 11:04:14 With:Phi MTZ, PASQUALE Romo, URO Address: [address], [place] [address] [phone] When: Unknown [facility] 10-02-2023 Hospital Discharg e instructions Patient Education 10/02/2023 14:03:01 Kidney Stones, Iyxg-ja-Sfgf Kidney Stones Kidney stones are rock-like masses [...] Follow these instructions at home: Medicines Take ravz-zyi-lxfwrpq and prescription medicines only as told by [...] provider. Document Revised: 04/03/2022 Document Reviewed: 04/03/2022 [employer] Patient Education 2022 [employer]. Follow Up Care 09/19/2023 09:59:17 With:MARIA DE JESUS ANTONIO PA-C, URL Address: When:1 year [facility] 03-14-2023 [facility] Discharg e instructions Patient Education 03/14/2023 09:49:19 [...] include: ?8 oz (237 mL) of milk, zkegyzm-eplomlhofmgw-tdfry milk, and calcium-fortifiedfruit juice. Calcium-fortified means that [...] ?Spinach (cooked), rhubarb, beets, sweet potatoes, and Israeli chard. ?Peanuts. ?Potato chips, malaysian fries, and baked potatoes with skin on. ?Nuts and nut products. ?Chocolate. If you regularly take a diuretic medicine, make sure to eat at least 1 or 2 servings of fruits or vegetables that are high in potassium each day. These include: ?Avocado. ?Banana. ?Navarre, prune, carrot, or tomato juice. ?Baked potato. [...] magnesium, fish oil, or vitamin B6. Take vteo-jer-brievoz and prescription medicines only as told by [...] Casseroles. Pizza. Lasagna. Frozen meals. Potato chips. Sammarinese fries. The items listed above may not [...] provider. Document Revised: 04/10/2022 Document Reviewed: 04/10/2022 [employer] Patient Education 2022 [employer]. Follow Up Care 11/13/2022 09:26:52 With:Arelis Yip MD, URL, URO Address: When:Within 6 Month(s) Comments:w/ KUB and RASHEEDA and 24 hr urine [facility] 03-14-2023 Hospital Discharg e instructions Follow Up Care 03/14/2023 09:44:41 With:Arelis Yip MD, URL, URO Address: [address] [place] [phone] When: Unknown [facility] 11-13-2022 Hospital Discharg e instructions Patient Education [...] include: ?Spinach. ?Rhubarb. ?Beets. ?Potato chips and malaysian fries. ?Nuts. If you regularly take a diuretic medicine, make sure to eat at least 1 2 fruits or vegetables high in potassium each day. These include: ?Avocado. ?Banana. ?Navarre, prune, carrot, or tomato juice. ?Baked potato. [...] Casseroles. Pizza. Lasagna. Frozen meals. Potato chips. Sammarinese fries. Summary You can reduce your risk [...] 11/24/2011 Document Revised: 11/19/2019 Document Reviewed: 07/10/2017 [employer] Patient Education 2020 Queryly. 11/13/2022 09:24:55 EU - Cystoscopy with Stent [...] Up Care 11/10/2022 09:26:19 With:Arelis Yip Address: [address] [place] [phone] Business (1) [facility] Yunior [address], [address] [address] [phone] Business (1) When: Unknown Comments:Office to schedule follow up in 6-8 wks with renal US, KUB and 24 hr urine stone workup, labs [facility] 11-01-2022 Note EXAMINATION: XR CHES T 2 [...] authenticated by: DARIEL CHRISTINE Date: 2022-11-01 09:20 [facility] 10-27-2022 Hospital Discharg e instructions Patient [...] include: ?Spinach. ?Rhubarb. ?Beets. ?Potato chips and malaysian fries. ?Nuts. If you regularly take a diuretic medicine, make sure to eat at least 1 2 fruits or vegetables high in potassium each day. These include: ?Avocado. ?Banana. ?Navarre, prune, carrot, or tomato juice. ?Baked potato. [...] Casseroles. Pizza. Lasagna. Frozen meals. Potato chips. Sammarinese fries. Summary You can reduce your risk [...] 11/24/2011 Document Revised: 11/19/2019 Document Reviewed: 07/10/2017 [employer] Patient Education 2020 Queryly. Follow Up Care 09/07/2022 10:54:19 With:Arelis Yip MD, URL, URO Address: When: Unknown [facility] Evaluation + Plan note No data available for this section [facility] Evaluation + Plan note Future Appointments Appointment Date:01/17/2023 08:45:00 AM Scheduled Provider:Arelis Yip MD Location:[facility] Appointment Type:URO Office Visit [facility] Evaluation + Plan note Future Appointments Appointment Date:09/19/2023 08:45:00 AM Scheduled Provider:Arelis Yip MD Location:[facility] Appointment Type:URO Office Visit Diagnostic Tests PendingUric Acid 03/14/23PTH Intact 03/14/23 [facility] Evaluation + Plan note Future Appointments Appointment Date:10/02/2023 12:40:00 PM Scheduled Provider:MARIA DE JESUS ANTONIO PA-C Location:[facility] Appointment Type:URO Office Visit [facility] Evaluation + Plan note Future Appointments Appointment Date:10/07/2024 09:00:00 AM Scheduled Provider:MARIA DE JESUS ANTONIO PA-C Location:[facility] Appointment Type:URO Office Visit [facility] Evaluation + Plan note Future Appointments Appointment Date:10/07/2024 09:00:00 AM Scheduled Provider:MARIA DE JESUS ANTONIO PA-C Location:[facility] Appointment Type:URO Office Visit Diagnostic Tests PendingUrine Culture 10/02/23 [facility] Evaluation + Plan note Future Appointments Appointment Date:01/23/2024 10:00:00 AM Scheduled Provider: Location:.[place]ICAL [place] Appointment Type:PT Pelvic Floor/UI Eval () Appointment Date:07/23/2024 08:45:00 AM Scheduled Provider:Arelis Yip MD Location:[facility] Appointment Type:URO Office Visit [facility] Evaluation + Plan note Future Appointments Appointment Date:07/23/2024 08:45:00 AM Scheduled Provider:Arelis Yip MD Location:[facility] Appointment Type:URO Office Visit [facility] Discharge instructions No data available for this section [facility] Progress note No data available for this section [facility] Reason for Referral Status Reason Specialty Diagnoses / Procedures Referred By Contact Referred To Contact New 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 Procedures CT CHEST WITH CONTRAST VT CAT SCAN OF CHEST CONTRAST Hernesto Haque II, MD [address] [place] [address] Status Reason Specialty Diagnoses / Procedures Referred By Contact Referred To Contact New 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 Tuberculosis: no 37. Vasculitis: no 38. PULMONARY NURSE PRACTITIONER/OB: no 40. Obesity: yes 41. Sleep apnea: [...] as yet. Her mother reports that her boat person wants toput her on hormone replacement therapy. [...] potentially adverse cardiovascular effects, however he patient's boat person deems this to be necessary at this [...] no documented in this encounter* Lashae Hastings, OSTEOPATHY DOCTOR - 09/14/2018 6:34 PM EST [facility] [...] failed tympanoplasty approximately 2 years ago in [place]. 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 Procedures ECHOCARDIOGRAM Hernesto Haque II, MD [address] [place] [address] Status Reason Specialty Diagnoses / Procedures Referre d By Contact Referred To Contact 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 DATE CREATED AUTHOR AUTHOR'S ORGANIZ ATION 05/25/2019 [facility] DATE CREATED AUTHOR AUTHOR'S ORGANIZ ATION 05/25/2019 [facility] DATE CREATED AUTHOR AUTHOR'S ORGANIZ ATION 08/15/2019 [facility] DATE CREATED AUTHOR AUTHOR'S ORGANIZ ATION 04/08/2020 [employer] [facility] DATE CREATED AUTHOR AUTHOR'S ORGANIZ ATION 11/18/2022 [facility] DATE CREATED AUTHOR AUTHOR'S ORGANIZ ATION 12/20/2023 [facility] DATE CREATED AUTHOR AUTHOR'S ORGANIZ ATION 07/26/2024 [facility] Patient Care team informatio n (unrecognized section and content) Personnel Name: Ilia Cobb DO Address: Address: [address] [place] [id number]- Personnel Name: Ilia Cobb DO Address: Address: [address] [place] [address]- Personnel Name: Ilia Cobb DO Address: Address: [address] [place] [id number]- Personnel Name: ILIA COBB DO Address: Address: [address] [place] [address] Personnel Name: JOAQUIM STEVEN MIKAELA SUSIE Address: Address: [address] [place] [phone] Personnel Name: MIKAELA MARCH CNP SUSIE Address: Address: [address] [place], [place] [address] Personnel Name: NONE, XXXX Address: Address: [facility] Personnel Name: NONE, XXXX Address: Address: [facility] FOR RECORDS PERTAINING TO PATIENTS WHO ARE [...] BE BASED ON THE PRIMARY CLINICAL RECORDS. [facility] [employer] [facility]. provides no warranty or guarantee of the accuracy or completeness of information in this document.
--- NOTE | 2024-07-29 08:25 | XR_ITS ---
The [address] [address] Patient Name: RICARDO ATKINS MRN: [id number] date: 2000 Sex: F Assigned Patient Location: Current Patient Location: Accession/Order Number: [id number] Exam Date: 07/29/2024 08:20 Report Date: 07/30/2024 06:47 At the request of: EMILIA FISCHER Procedure: XR abdomen 1V EXAMINATION: XR abdomen 1V HISTORY: Kidney Stone COMPARISON: XR abdomen 08/22/2023 FINDINGS: KIDNEY/URETER - RIGHT: No visible renal or ureteral calcifications. KIDNEY/URETER - LEFT: No visible renal or ureteral calcifications. PELVIS: No visible ureteral stones. BOWEL: No abnormal dilation or deviation. BONES: No acute abnormality. OTHER: Negative. No abnormal gaseous collections. XR/XR abdomen 1V IMPRESSION: 1. No appreciable urinary tract calculi. Evaluation is limited by dense overlying bowel content. Electronically authenticated by: DARIEL CHRISTINE Date: 07/30/2024 06:47
== END 2024-07-29 07:34 | disposition home or self-care (01) ==
LOC: US 07:33
PROVIDERS: Visit Provider Urology
DX: N20.0 Calculus of kidney (principal)
CPT/HCPCS: 74018; 76775

== ENCOUNTER 2024-12-29 13:24 | Outpatient (OUT) | payer OTHER, SELFPAY ==
--- OUTSIDE RECORDS SUMMARY | 2024-12-29 13:43 | XMS_ITS | CCD ---
Author Organization [facility] Informat ion Partnership [facility] Care Team Providers Care Manager French Name Role Phone Ilia Monson Unavailable ILIA MONSON Attending Unavailable SELF, SELF Referring Unavailable ILIA MONSON Attending Unavailable SELF, SELF Referring Unavailable Ilia Monson Primary Care Provider THAO GABRIEL Attending U navailable VICTORIA, LAHSAE TREVINO Attending Unavailab le CAROL, ILIA BYNUM Referring Unavailab le CAROL, ILIA BYNUM Primary Care Unavailab le HASTINGS, LASHAE TREVINO Attending Unavailab le CAROL, ILIA BYNUM Primary Care Unavailab le HASTINGS, LASHAE TREVINO Attending Unavailab le CAROL, ILIA BYNUM Primary Care Unavailab Ilia Glover Primary Care Provider Ilia Cobb Primary Care Physician REZA, DR YOO Primary Care Unavailable PHI .ARELIS Attending Unavailable LUE ., ARELIS Preston Admitting Unavailable EMMETT, DR DARIEL Hernandez Consulting Unavailable LUE .ARELIS Consulting Unavailable REZA, DR YOO Primary Care Unavailable LUE .ARELIS Admitting Unavailable LUE ., ARELIS Preston Consulting Unavailable LUE ., ARELIS Preston Attending Unavailable CHRISTINE MANE Consulting Unavailable REZA, [...] Physician MIKAELA MARCH Primary Care Physician BARAK SOMMERS Admitting Unavailable BARAK SOMMERS Attending Unavailable BARAK SOMMERS Admitting Unavailable NONE, XXXX Primary Care Physician Unavailab Arelis Gonzalez Attending Unavailable [facility] MIKAELA Primary Care Unavailable SOLEDAD ANTONIO Attending Unavailab Arelis Gonzalez Attending Un[facility] Primary Care Unavailable Arelis Yip Attending Unavailable Medications Current Medications Medication Drug Class(es) [...] / neomycin 3.5 mg/ml / polymyxin b [id number] unt/ml otic suspension (8 sources) Aminoglycoside Antibacterial, Polymyxin-class Antibacterial, Corticosteroid Start: 06-06-2018 nokqwlxn-jynsyqajq-vixhxmtsw isone (CORTISPORIN) otic suspension Administer 4 drops into ears . 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 RASHEEDA and KUB were ordered on 07/23/24, and patient would like to have the imaging done at [facility]. Please send orders prior to f/u appointment on 10/22/24. RASHEEDA and KUB done 07/29/24 results are in chart. pt. stated she sent litholink back on 09/30 [facility] Reminderson 09-18-2024 Reminders Reminders - From: Kari Muniz MA (EU - Recalls Lue) To: EU - Recalls Lue; Sent: 08/21/2024 12:34:34 EST Show up: 09/13/2024 12:33:00 EST Subject: RASHEEDA/KUB and litholink Reminder/Recall Addendum by Kari Muniz MA on August 21, 2024 12:33:04 EST 10/22/24 follow up - From: Bethany March To: EU - Recalls Lue; Sent: 07/23/2024 15:48:22 EST Subject: Labs and Imaging Due Date/Time: 10/21/2024 16:44:00 EDT Caller Name: KARENMARIYA KEYONA A; Caller Number: , M Pt is to get LithoLink, RASHEEDA, and KUB done prior to 3 mos f/u, pt prefers [facility]. RASHEEDA and KUB done 07/29/24 results are in chart. Spoke to patient she stated that she is going to complete 24hr urine this weekend. Normal [facility] Ambulatory Visit Summaryon 1 09-23-2023 Ambulatory Visit [...] MTZ, Arelis Velazquez Where: [facility] [address] You Need to Schedule the Following [...] daily as (more content not included)... Normal [facility] Urology Office/Clinic Noteon 07-23-2024 Urology Office/Clinic Note Urology Office/Clinic Note Chief Complaint 6 mth f/u HPI Staff 23 yo female pt here today for a 6 mos f/u. Previous Dx:Urge Incontinence, Kidney Stone, and Renal Cyst No Urologic Meds Pt was previously referred to PFPT at [facility] at the time of her last OV. 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 1. Urge incontinence (N39.41: Urge [...] serum labs, KUB & RASHEEDA. Pt prefers [facility]. -Inc fluids, dietary modifications 3. Renal cyst (N28.1: Cyst of kidney, acquired) CT AP w/wo con 08/26/22 @[facility] - An upper pole left simple renal cyst 1.7 cm. -Simple cyst does not require surveillance. Follow-up With When Contact Information Phi MTZ, Arelis Velazquez, URL, URO Additional Instructions: Patient Education Kegel Exercises IBethany, personally scribed for Dr. Yip on 07/23/2024 09:47:12. . Documentation recorded by the Bethany viera (more content not included)... [facility] Comment on above: Result Comment: Elec tronically Signed By: Arelis Yip MD\.br\Date and Time Signed: 07/23/24 09:50 EST\.br\Electronically Co-Signed By: Bethany March E\.br\Date and Time Co-Signed: 07/23/24 09:48 EST Nonvisit Note - PTon 024 Nonvisit Note - PT Chart reviewed with eval prepped for scheduled eval. KK [facility] Screenson 01-17-2024 Screens [id number] #1.00TIFF [facility] Patient Educationon 01-16-20 24 Patient Education [...] provider. Document Revised: 12/08/2021 Document Reviewed: 12/08/2021 [employer] Patient Education ? 2022 [employer]. Normal [facility] Urology Office/Clinic Noteon 01-16-2024 Urology Office/Clinic [...] female. 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 1. Urge incontinence (N39.41: Urge [...] provided. -Practice Shavonne -Referral to PFPT @ [facility] 2. Kidney stone (N20.0: Calculus of kidney) CT AP w/wo con 08/26/22 @[facility] - [employer] stone 7.5 [...] 08/22/23 - (more content not included)... Normal [facility] Comment on above: Result Comment: Elec tronically Signed By: Arelis Yip MD\.br\Date and Time Signed: 01/16/24 16:38 EDT\.br\Electronically Co-Signed By: Tammie Torres\.br\Date and Time Co-Signed: 01/16/24 10:24 EDT URINALYSISOrdered By: Anne Taveras on 10-02-2023 Bacteria [...] PM) Normal Negative [facility] UA Auto SS Deans.plasma/Lithiu m.RBC (Bld) [Mass ratio] 0-3 /HPF Normal [...] Specific gravity (U) [Rel density] 1.020 *NA* (2/20/24 1:55 PM) Invalid Interpretation Code 1.005 - 1.030 [facility] UA Auto SS UA Spec Desc Random Urine (10/02/23 1:55 PM) Normal [facility] UA Auto SS Urobilinogen Qn (U) 0.6243946 {Mi'U}/dL Normal 0.0 - 1.0 EU/dL [facility] UA Auto SS WBC Auto Ql (U) Negative (10/02/23 1:55 PM) Normal Negative [facility] UA Auto SS WBC LM.HPF (Urine sed) [#/Area] 0-5 /HPF Normal 0-5/HPF [facility] UA Auto SS Provider Orderson 09-12-2023 Provider Orders [id number] [facility]2023 Provider Orders [id number] #[facility] 06-04-2023 Provider Orders [id number] #[facility] CALCULI, URINARYon 3 2,8 Dihydroxyadenine Normal [facility] Comment on above: Performed By: #### C ALCULI #### [facility] [address] [place] [address] Dr. Graciela Paz Ammonium Acid Urate Normal [facility] Comment on above: Performed By: #### C ALCULI #### [facility] [address] [address] [address] Graciela Paz Bilirubin Ql (U) Normal [facility] Comment on above: Performed By: #### C ALCULI #### [facility] [address] [address] [address] Graciela Paz Ca Oxalate Dihydrate 90 % Normal [facility] Comment on above: Performed By: #### C ALCULI #### [facility] [address] [address] [address] Graciela Paz CaHPO4 (Brushite) Normal [facility] Comment on above: Performed By: #### C ALCULI #### [facility] [address] [address] [address] Graciela Paz Calcium Bilirubinate [facility] Comment on above: Performed By: #### C ALCULI #### [facility] [address] [address] [address] Graciela Paz Calcium Carbonate [facility] Comment on above: Performed By: #### C ALCULI #### [facility] [address] [address] [address] Graciela Paz Calcium Oxalate Monohydrate 5 % [facility] Comment on above: Performed By: #### C ALCULI #### [facility] [address] [address] [address] Graciela Paz Calcium Palmitate [facility] Comment on above: Performed By: #### C ALCULI #### [facility] [address] [address] [address] Graciela Paz Calcium Phosphate [facility] Comment on above: Performed By: #### C ALCULI #### [facility] [address] [address] [address] Graciela Paz Calcium Stearate [facility] Comment on above: Performed By: #### C ALCULI #### [facility] [address] [address] [address] Graciela Paz Carbonate Apatite [facility] Comment on above: Performed By: #### C ALCULI #### [facility] [address] [address] [address] Graciela Paz Cellular Material [facility] Comment on above: Performed By: #### C ALCULI #### [facility] [address] [address] [address] Graciela Paz Cholesterol [facility] Comment on above: Performed By: #### C ALCULI #### [facility] [address] [address] [address] Graciela Paz Color (U) Nolasco [facility] Comment on above: Performed By: #### C ALCULI #### [facility] [address] [address] [address] Graciela Paz Comment Comment Normal [facility] Comment on above: Result Comment: Calc ium phosphate (hydroxyl form) includes hydroxyapatite, amorphous calcium phosphate, and whitlockite. Hydroxyapatite is the most common of the calcium phosphate salts found in human kidney stones. Performed By: #### C ALCULI #### [facility] [address] [address] [address] Graciela Paz Result Comment: Calc ulus received wet. Wet calculi must be dried before analysis, which delays reporting of results. Leaving calculi wet (such as water, saline, blood, urine) may lead to changes in composition. Comment: Comment Normal [facility] Comment on above: Result Comment: Emily mullen questions regarding Calculi Analysis contact [employer] at: [phone]. Performed By: #### C ALCULI #### [facility] [address] [place] [address] Dr. Graciela Paz Composition Comment Normal [facility] Comment on above: Result Comment: Perc entage (Represents the % composition) Performed By: #### C ALCULI #### [facility] [address] [place] [address] Dr. Graciela Paz Cystine Normal [facility] Comment on above: Performed By: #### C ALCULI #### [facility] [address] [place] [address] Dr. Graciela Paz Disclaimer: Comment Normal [facility] Comment on above: Result Comment: This test was developed and its performance characteristics determined by [employer]. It has not been cleared or approved by the Food and Drug Administration. Performed By: #### C ALCULI #### [facility] [address] [address] [address] Graciela Paz Dried Blood Normal [facility] Comment on above: Performed By: #### C ALCULI #### [facility] [address] [place] [address] Dr. Graciela Paz Drug or Metabolite Normal [facility] Comment on above: Performed By: #### C ALCULI #### [facility] [address] [place] [address] Dr. Graciela Paz Hydroxyapatite 5 % Normal [facility] Comment on above: Performed By: #### C ALCULI #### [facility] [address] [address] [address] Graciela Paz Mg NH4 PO4 (Struvite) [facility] Comment on above: Performed By: #### C ALCULI #### [facility] [address] [address] [address] Graciela Paz MgHPO4 (Newberyite) Normal [facility] Comment on above: Performed By: #### C ALCULI #### [facility] [address] [address] [address] Graciela Paz Other component(s) Normal [facility] Comment on above: Performed By: #### C ALCULI #### [facility] [address] [address] [address] Graciela Paz PDF . Normal [facility] Comment on above: Performed By: #### C ALCULI #### [facility] [address] [address] [address] Graciela Paz Photo Comment [facility] Comment on above: Result Comment: Phot ograph will follow under a separate cover Performed By: #### C ALCULI #### [facility] [address] [address] [address] Graciela Paz Please note: Comment Normal [facility] Comment on above: Result Comment: Calc rafal report will follow via computer, mail or systems planner delivery. Performed By: #### C ALCULI #### [facility] [address] [address] [address] rGaciela Paz Size 2x3 Normal [facility] Comment on above: Result Comment: Mult iple pieces received. Dimensions of the largest piece reported. Performed By: #### C ALCULI #### [facility] [address] [address] [address] Graciela Paz Sodium Acid Urate Normal [facility] Comment on above: Performed By: #### C ALCULI #### [facility] [address] [address] [address] Graciela Paz Source Comment [facility] Comment on above: Result Comment: Left Kidney Performed By: #### C ALCULI #### [facility] [address] [place] [address] Dr. Graciela Paz Triamterene [facility] Comment on above: Performed By: #### C ALCULI #### [facility] [address] [place] [address] Dr. Graciela Paz Uric Acid [facility] Comment on above: Performed By: #### C ALCULI #### [facility] [address] [place] [address] Dr. Gracieal Paz Uric Acid Dihydrate Normal [facility] Comment on above: Performed By: #### C ALCULI #### [facility] [address] [place] [address] Dr. Graciela Paz Weight 58 mg [facility] Comment on above: Performed By: #### C ALCULI #### [facility] [address] [place] [address] Dr. Graciela Paz Xanthine [facility] Comment on above: Performed By: #### C ALCULI #### [facility] [address] [place] [address] Dr. Graciela Paz CBC AUTO DIFFon 11-13-2022 BASO # 0.1 103/ul Normal 0.0-0.1 [facility] Comment on above: Performed By: #### C BC #### [facility] [address] [place] [address] Dr. Graciela Paz Basophils/100 WBC (Bld) 0.8 % Normal 0.2-2.0 [facility] Comment on above: Performed By: #### C BC #### [facility] [address] [place] [address] Dr. Graciela Paz EO # 0.2 103/ul Normal 0.0-0.7 [facility] Comment on above: Performed By: #### C BC #### [facility] [address] [place] [address] Dr. Graciela Paz Eosinophils/100 WBC (Bld) 3.2 % Normal 0.9-7.0 [facility] Comment on above: Performed By: #### C BC #### [facility] [address] [place] [address] Dr. Graciela Paz Erythrocyte distribution width (RBC) [Ratio] 13.2 % Normal 11.0-15.0 [facility] Comment on above: Performed By: #### C BC #### [facility] [address] [place] [address] Dr. Graciela Paz Hematocrit (Bld) [Volume fraction] 37.3 % Normal 36.0-48.0 [facility] Comment on above: Performed By: #### C BC #### [facility] [address] [place] [address] Dr. Graciela Paz Hemoglobin (Bld) [Mass/Vol] 12.5 g/dL Normal 12.0-16.0 [facility] Comment on above: Performed By: #### C BC #### [facility] [address] [place] [address] Dr. Graciela Paz IG # 0.03 10e3/ul Normal 0.00-0.03 [facility] Comment on above: Performed By: #### C BC #### [facility] [address] [place] [address] Dr. Graciela Paz IG % 0.5 % Normal 0.0-0.5 [facility] Comment on above: Performed By: #### C BC #### [facility] [address] [place] [address] Dr. Graciela Paz LYMPH # 1.5 103/ul Normal 1.2-3.8 [facility] Comment on above: Performed By: #### C BC #### [facility] [address] [place] [address] Dr. Graciela Paz Lymphocytes/100 WBC (Bld) 23.7 % Normal 20.5-60.0 [facility] Comment on above: Performed By: #### C BC #### [facility] [address] [place] [address] Dr. Graciela Paz MANUAL DIFF REQ NO Normal [facility] Comment on above: Performed By: #### C BC #### [facility] [address] [place] [address] Dr. Graciela Paz MCH (RBC) [Entitic mass] 30.3 pg Normal 26.7-34.0 [facility] Comment on above: Performed By: #### C BC #### [facility] [address] [place] [address] Dr. Graciela Paz MCHC (RBC) [Mass/Vol] 33.5 g/dL Normal 29.9-35.2 [facility] Comment on above: Performed By: #### C BC #### [facility] [address] [place] [address] Dr. Graciela Paz MCV (RBC) [Entitic vol] 90.5 fL Normal 81.0-99.0 [facility] Comment on above: Performed By: #### C BC #### [facility] [address] [place] [address] Dr. Graciela Paz MONO # 0.6 103/ul Normal 0.3-0.8 [facility] Comment on above: Performed By: #### C BC #### [facility] [address] [place] [address] Dr. Graciela Paz Monocytes/100 WBC (Bld) 9.1 % Normal 1.7-12.0 [facility] Comment on above: Performed By: #### C BC #### [facility] [address] [place] [address] Dr. Graciela Paz NEUT # 4.1 103/ul Normal 1.4-6.5 [facility] Comment on above: Performed By: #### C BC #### [facility] [address] [place] [address] Dr. Graciela Paz Neutrophils/100 WBC (Bld) 62.7 % Normal 43.0-75.0 [facility] Comment on above: Performed By: #### C BC #### [facility] [address] [place] [address] Dr. Graciela Paz Platelet mean volume (Bld) [Entitic vol] 9.7 fL Normal 9.5-13.5 [facility] Comment on above: Performed By: #### C BC #### [facility] [address] [address] [address] Graciela Paz PLT 193 103/ul Normal 150-450 [facility] Comment on above: Performed By: #### C BC #### [facility] [address] [place] [address] Dr. Graciela Paz RBC 4.12 106/ul Critically low 4.20-5.40 [facility] Comment on above: Performed By: #### C BC #### [facility] [address] [address] [address] Graciela Paz WBC 6.5 103/ul Normal 4.0-11.0 [facility] Comment on above: Performed By: #### C BC #### [facility] [address] [place] [address] Dr. Graciela Paz ER URINE PROFILEon 3 Bilirubin Ql (U) SMALL Abnormal NEGATIVE [facility] Comment on above: Performed By: #### U MICRO, ERUR #### [facility] [address] [place] [address] Dr. Graciela Paz Clarity (U) CLOUDY Abnormal CLEAR [facility] Comment on above: Performed By: #### U MICRO, ERUR #### [facility] [address] [place] [address] Dr. Graciela Paz Color (U) DK. YELLOW Normal YELLOW [facility] Comment on above: Performed By: #### U MICRO, ERUR #### [facility] [address] [place] [address] Dr. Graciela Paz ERUAHD A micrscopic examination will be performed if indicated. Normal [facility] Comment on above: Performed By: #### U MICRO, ERUR #### [facility] [address] [place] [address] Dr. Graciela Paz Glucose Ql (U) Negative Normal NEGATIVE [facility] Comment on above: Performed By: #### U MICRO, ERUR #### [facility] [address] [place] [address] Dr. Graciela Paz Hemoglobin Ql (U) LARGE Abnormal NEGATIVE [facility] Comment on above: Performed By: #### U MICRO, ERUR #### [facility] [address] [address] [address] Graciela Paz Ketones Ql (U) TRACE Abnormal NEGATIVE [facility] Comment on above: Performed By: #### U MICRO, ERUR #### [facility] [address] [place] [address] Dr. Graciela Paz LEUKOCYTES TRACE Abnormal NEGATIVE [facility] Comment on above: Performed By: #### U MICRO, ERUR #### [facility] [address] [address] [address] Graciela Paz Nitrite Ql (U) Negative Normal NEGATIVE [facility] Comment on above: Performed By: #### U MICRO, ERUR #### [facility] [address] [place] [address] Dr. Graciela Paz pH (U) 6.5 [pH] Normal 5-9 [facility] Comment on above: Performed By: #### U MICRO, ERUR #### [facility] [address] [place] [address] Dr. Graciela Paz Protein (U) [Mass/Vol] 300 mg/dL Abnormal NEGATIVE/ TRACE [facility] Comment on above: Performed By: #### U MICRO, ERUR #### [facility] [address] [place] [address] Dr. Graciela Paz SPEC GRAVITY 1.030 Abnormal 1.005-<=1.025 [facility] Comment on above: Performed By: #### U MICRO, ERUR #### [facility] [address] [place] [address] Dr. Graciela Paz UR MICRO IND INDICATED Normal [facility] Comment on above: Performed By: #### U MICRO, ERUR #### [facility] [address] [place] [address] Dr. Graciela Paz Urobilinogen Qn (U) 0.2 {Mi'U}/dL Normal 0.2 - 1. 0 [facility] Comment on above: Performed By: #### U MICRO, ERUR #### [facility] [address] [address] [address] Graciela Paz PROF 14(COMP METB)on 023 Albumin [Mass/Vol] 4.4 g/dL Normal 3.4-5.0 [facility] Comment on above: Performed By: #### C MP #### [facility] [address] [address] [address] Graciela Paz Albumin/Globulin [Mass ratio] 1.2 {ratio} Normal [facility] Comment on above: Performed By: #### C MP #### [facility] [address] [place] [address] Dr. Graciela Paz ALP [Catalytic activity/Vol] 105 U/L Normal 46-116 [facility] Comment on above: Performed By: #### C MP #### [facility] [address] [place] [address] Dr. Graciela aPz ALT [Catalytic activity/Vol] 54 U/L Normal 14-59 [facility] Comment on above: Performed By: #### C MP #### [facility] [address] [place] [address] Dr. Graciela Paz Anion gap [Moles/Vol] 13.9 mmol/L Normal [facility] Comment on above: Performed By: #### C MP #### [facility] [address] [place] [address] Dr. Graciela Paz AST [Catalytic activity/Vol] 38 U/L Critically high 15-37 [facility] Comment on above: Performed By: #### C MP #### [facility] [address] [place] [address] Dr. Graciela Paz Bilirubin [Mass/Vol] 0.5 mg/dL Normal 0.2-1.0 [facility] Comment on above: Performed By: #### C MP #### [facility] [address] [place] [address] Dr. Graciela Paz Calcium [Mass/Vol] 10.9 mg/dL Critically high 8.5-10.1 [facility] Comment on above: Performed By: #### C MP #### [facility] [address] [address] [address] Graciela Paz Chloride [Moles/Vol] 103 mmol/L Normal 98-107 [facility] Comment on above: Performed By: #### C MP #### [facility] [address] [address] [address] Graciela Paz CO2 [Moles/Vol] 24.1 mmol/L Normal 21.0-32.0 [facility] Comment on above: Performed By: #### C MP #### [facility] [address] [place] [address] Dr. Graciela Paz Creatinine [Mass/Vol] 0.60 mg/dL Normal 0.55-1.02 [facility] Comment on above: Performed By: #### C MP #### [facility] [address] [place] [address] Dr. Graciela Paz EGFR-AF JAMAICAN >60 Normal >=60 [facility] Comment on above: Performed By: #### C MP #### [facility] [address] [address] [address] Graciela Paz EGFR-NON AF JAMAICAN >60 Normal >=60 [facility] Comment on above: Performed By: #### C MP #### [facility] [address] [address] [address] Graciela Paz Globulin (S) [Mass/Vol] 3.7 g/dL Normal [facility] Comment on above: Performed By: #### C MP #### [facility] [address] [place] [address] Dr. Graciela Paz Glucose [Mass/Vol] 111 mg/dL Critically high 74-106 [facility] Comment on above: Performed By: #### C MP #### [facility] [address] [address] [address] Graciela Paz Potassium [Moles/Vol] 4.0 mmol/L Normal 3.5-5.1 [facility] Comment on above: Performed By: #### C MP #### [facility] [address] [address] [address] Graciela Paz Protein [Mass/Vol] 8.1 g/dL Normal 6.4-8.2 [facility] Comment on above: Performed By: #### C MP #### [facility] [address] [place] [address] Dr. Graciela Paz Sodium [Moles/Vol] 137 mmol/L Normal 136-145 [facility] Comment on above: Performed By: #### C MP #### [facility] [address] [place] [address] Dr. Graciela Paz Urea nitrogen [Mass/Vol] 11.0 mg/dL Normal 7.0-18.0 [facility] Comment on above: Performed By: #### C MP #### [facility] [address] [place] [address] Dr. Graciela Paz Urea nitrogen/Creatinine [Mass ratio] 18.3 mg/mg Normal [facility] Comment on above: Performed By: #### C MP #### [facility] [address] [place] [address] Dr. Graciela Paz URINE MICROSCOPIC ONLYon BACTERIA NONE SEEN Normal NONE SEEN [facility] Comment on above: Performed By: #### U MICRO, ERUR #### [facility] [address] [place] [address] Dr. Graciela Paz Bacteria identified Cx Nom (U) NOT INDICATED Normal [facility] Comment on above: Performed By: #### U MICRO, ERUR #### [facility] [address] [place] [address] Dr. Graciela Paz CAST NONE SEEN Normal NONE SEEN [facility] Comment on above: Performed By: #### U MICRO, ERUR #### [facility] [address] [place] [address] Dr. Graciela Paz Crystals LM Nom (Urine sed) NONE SEEN Normal NONE SEEN [facility] Comment on above: Performed By: #### U MICRO, ERUR #### [facility] [address] [place] [address] Dr. Graciela Paz Epithelial cells LM Ql (Urine sed) RARE Normal NONE SEEN /RARE [facility] Comment on above: Performed By: #### U MICRO, ERUR #### [facility] [address] [place] [address] Dr. Graciela Paz MUCOUS NONE SEEN Normal NONE SEEN [facility] Comment on above: Performed By: #### U MICRO, ERUR #### [facility] [address] [place] [address] Dr. Graciela Paz RBC (U) [#/Vol] /uL Abnormal 0-2 [facility] Comment on above: Performed By: #### U MICRO, ERUR #### [facility] [address] [place] [address] Dr. Graciela Paz WBC 5-10 Abnormal NONE SEEN [facility] Comment on above: Performed By: #### U MICRO, ERUR #### [facility] [address] [place] [address] Dr. Graciela Paz PREG HCG QUALon 11-08-2022 , QUAL Negative Normal NEGATIVE [facility] Comment on above: Performed By: #### P REG #### [facility] [address] [place] [address] Dr. Graciela Paz CBC AUTO DIFFon 11-01-2022 BASO # 0.0 103/ul Normal 0.0-0.1 [facility] Comment on above: Performed By: #### C BC #### [facility] [address] [place] [address] Dr. Graciela Paz Basophils/100 WBC (Bld) 0.9 % Normal 0.2-2.0 [facility] Comment on above: Performed By: #### C BC #### [facility] [address] [place] [address] Dr. Graciela Paz EO # 0.3 103/ul Normal 0.0-0.7 [facility] Comment on above: Performed By: #### C BC #### [facility] [address] [place] [address] Dr. Graciela Paz Eosinophils/100 WBC (Bld) 5.9 % Normal 0.9-7.0 [facility] Comment on above: Performed By: #### C BC #### [facility] [address] [place] [address] Dr. Graciela Paz Erythrocyte distribution width (RBC) [Ratio] 13.0 % Normal 11.0-15.0 [facility] Comment on above: Performed By: #### C BC #### [facility] [address] [place] [address] Dr. Graciela Paz Hematocrit (Bld) [Volume fraction] 35.3 % Critically low 36.0-48.0 [facility] Comment on above: Performed By: #### C BC #### [facility] [address] [place] [address] Dr. Graciela Paz Hemoglobin (Bld) [Mass/Vol] 11.8 g/dL Critically low 12.0-16.0 [facility] Comment on above: Performed By: #### C BC #### [facility] [address] [place] [address] Dr. Graciela Paz IG # 0.01 10e3/ul Normal 0.00-0.03 [facility] Comment on above: Performed By: #### C BC #### [facility] [address] [place] [address] Dr. Graciela Paz IG % 0.2 % Normal 0.0-0.5 [facility] Comment on above: Performed By: #### C BC #### [facility] [address] [place] [address] Dr. Graciela Paz LYMPH # 1.3 103/ul Normal 1.2-3.8 [facility] Comment on above: Performed By: #### C BC #### [facility] [address] [place] [address] Dr. Graciela Paz Lymphocytes/100 WBC (Bld) 28.8 % Normal 20.5-60.0 [facility] Comment on above: Performed By: #### C BC #### [facility] [address] [place] [address] Dr. Graciela Paz MANUAL DIFF REQ NO Normal [facility] Comment on above: Performed By: #### C BC #### [facility] [address] [place] [address] Dr. Graciela Paz MCH (RBC) [Entitic mass] 30.0 pg Normal 26.7-34.0 [facility] Comment on above: Performed By: #### C BC #### [facility] [address] [place] [address] Dr. Graciela Paz MCHC (RBC) [Mass/Vol] 33.4 g/dL Normal 29.9-35.2 [facility] Comment on above: Performed By: #### C BC #### [facility] [address] [place] [address] Dr. Graciela Paz MCV (RBC) [Entitic vol] 89.8 fL Normal 81.0-99.0 [facility] Comment on above: Performed By: #### C BC #### [facility] [address] [place] [address] Dr. Graciela Paz MONO # 0.5 103/ul Normal 0.3-0.8 [facility] Comment on above: Performed By: #### C BC #### [facility] [address] [place] [address] Dr. Graciela Paz Monocytes/100 WBC (Bld) 10.3 % Normal 1.7-12.0 [facility] Comment on above: Performed By: #### C BC #### [facility] [address] [place] [address] Dr. Graciela Paz NEUT # 2.4 103/ul Normal 1.4-6.5 [facility] Comment on above: Performed By: #### C BC #### [facility] [address] [place] [address] Dr. Graciela Paz Neutrophils/100 WBC (Bld) 53.9 % Normal 43.0-75.0 [facility] Comment on above: Performed By: #### C BC #### [facility] [address] [place] [address] Dr. Graciela Paz Platelet mean volume (Bld) [Entitic vol] 9.2 fL Critically low 9.5-13.5 [facility] Comment on above: Performed By: #### C BC #### [facility] [address] [place] [address] Dr. Graciela Paz PLT 132 103/ul Critically low 150-450 [facility] Comment on above: Performed By: #### C BC #### [facility] [address] [address] [address] Graciela Paz RBC 3.93 106/ul Critically low 4.20-5.40 [facility] Comment on above: Performed By: #### C BC #### [facility] [address] [address] [address] Graciela Paz WBC 4.4 103/ul Normal 4.0-11.0 [facility] Comment on above: Performed By: #### C BC #### [facility] [address] [place] [address] Dr. Graciela Paz PROF CHEM 8 (BAS METB)on Anion gap [Moles/Vol] 12.8 mmol/L Normal [facility] Comment on above: Performed By: #### B MP #### [facility] [address] [place] [address] Dr. Graciela Paz Calcium [Mass/Vol] 10.1 mg/dL Normal 8.5-10.1 [facility] Comment on above: Performed By: #### B MP #### [facility] [address] [place] [address] Dr. Graciela Paz Chloride [Moles/Vol] 106 mmol/L Normal 98-107 [facility] Comment on above: Performed By: #### B MP #### [facility] [address] [place] [address] Dr. Graciela Paz CO2 [Moles/Vol] 25.2 mmol/L Normal 21.0-32.0 [facility] Comment on above: Performed By: #### B MP #### [facility] [address] [place] [address] Dr. Graciela Paz Creatinine [Mass/Vol] 0.44 mg/dL Critically low 0.55-1.02 [facility] Comment on above: Performed By: #### B MP #### [facility] [address] [place] [address] Dr. Graciela Paz EGFR-AF JAMAICAN >60 Normal >=60 [facility] Comment on above: Performed By: #### B MP #### [facility] [address] [address] [address] Graciela Paz EGFR-NON AF JAMAICAN >60 Normal >=60 [facility] Comment on above: Performed By: #### B MP #### [facility] [address] [address] [address] Graciela Paz Glucose [Mass/Vol] 96 mg/dL Normal 74-106 [facility] Comment on above: Performed By: #### B MP #### [facility] [address] [address] [address] Graciela Paz Potassium [Moles/Vol] 4.2 mmol/L Normal 3.5-5.1 [facility] Comment on above: Performed By: #### B MP #### [facility] [address] [address] [address] Graciela Paz Sodium [Moles/Vol] 140 mmol/L Normal 136-145 [facility] Comment on above: Performed By: #### B MP #### [facility] [address] [address] [address] Graciela Paz Urea nitrogen [Mass/Vol] 9.0 mg/dL Normal 7.0-18.0 [facility] Comment on above: Performed By: #### B MP #### [facility] [address] [address] [address] Graciela Paz Urea nitrogen/Creatinine [Mass ratio] 20.5 mg/mg Normal [facility] Comment on above: Performed By: #### B MP #### [facility] [address] [address] [address] Graciela Paz PROTIMEon 11-01-2022 INR Coag (PPP) [Relative time] 0.97 {INR} Normal [facility] Comment on above: Performed By: #### P T, PTT ####[facility] [id number] [address]Dr. Graciela Paz INR GUIDELINES SEE BELOW Normal [facility] Comment on above: Result Comment: JONATHON RED INR: 2.0 - 3.0 CONDITIONS NOT LISTED BELOW 2.5 - 3.5 FOR PROSTHETIC HEART VALVE REPLACEMENT 2.5 - 3.5 RECURRENT THROMBOSIS Performed By: #### P T, PTT ####[facility] [id number] [place], [place] [address]Bw. Graciela Paz PT Coag (PPP) [Time] 10.3 s Normal 9.0-11.6 [facility] Comment on above: Performed By: #### P T, PTT ####[facility] [id number] [place], [place] [address]Qi. Graciela Paz PTTon 11-01-2022 aPTT Coag (Bld) [Time] 26.8 s Normal 22.3-36.2 [facility] Comment on above: Performed By: #### P T, PTT ####[facility] [id number] [place], [place] [address]. [address] ABD/PELV WO W CONon [...] by: KAYCE SANDS Date: 2022-08-28 15:34 Normal [facility] ESTRADIOLon 03-15-2020 ESTRADIOL 20 pg/mL Normal [facility] Comment on above: Result Comment: REF VALUES FOLLICULAR PHASE 20-144 MID CYCLE 64-357 LUTEAL PHASE 56-214 POSTMENOPAUSE < 32 PREPUBERTY < 20 FEMALE 10-18Y 8-110 MALE 10-18Y < 20 ADULT MALE < 40 Performed By: #### E STRA #### [facility] [address] [place] [address] FOLLICLE STIM. HORMONEon FOLLICLE STIM. HORMONE 72.5 IU/L Normal [facility] Comment on above: Result Comment: REF VALUES FOLLICULAR 2-12 MID-CYCLE 12-25 LUTEAL PHASE 2-12 MENOPAUSE 30-150 PREPUBERTY 50% ADULT ADULT MALE 2-10 INFANTS 0-1 Performed By: #### F SH #### [facility] [address] [place] [address] GGTon 03-15-2020 Gamma glutamyl transferase [Catalytic activity/Vol] 26 U/L Normal 5 - 55 [facility] Comment on above: Performed By: #### G GT #### [address] [id number] GLUCOSEon 03-15-2020 Glucose [Mass/Vol] 91 mg/dL Normal 74 - 99 [facility] Comment on above: Performed By: #### G EDGAR #### [address] [id number] HEMOGLOBIN A1Con 03-15-2020 HbA1c (Bld) [Mass fraction] 5.3 % Normal [facility] Comment on above: Result Comment: Diag nosis of Diabetes-Adults Non-Diabetic: < or = 5.6% Increased risk for developing diabetes: 5.7-6.4% Diagnostic of diabetes: > or = 6.5% . Monitoring of Diabetes Age (y) Therapeutic Goal (%) Adults: >18 <7.0 Pediatrics: 13-18 <7.5 7-12 <8.0 0- 6 7.5-8.5 [place] [employer]. Diabetes Care 33(S1), Aug 2009. Performed By: #### H BA1E #### [facility] [address] [place] [address] HbA1c (Bld) [Mass fraction] 105 MG/DL Normal [facility] Comment on above: Performed By: #### H BA1E #### [facility] [address] [place] [address] HEPATIC FUNCTION PANELon Albumin [Mass/Vol] 4.1 g/dL Normal 3.4 - 5.0 [facility] Comment on above: Performed By: #### H EPFP #### [address] [id number] ALP [Catalytic activity/Vol] 113 U/L High 33 - 110 [facility] Comment on above: Performed By: #### H EPFP #### [address] [id number] ALT [Catalytic activity/Vol] 29 U/L Normal 7 - 45 [facility] Comment on above: Result Comment: Amy ents treated with Sulfasalazine may generate falsely decreased results for ALT. Performed By: #### H EPFP #### [address] [id number] AST [Catalytic activity/Vol] 24 U/L Normal 9 - 39 [facility] Comment on above: Performed By: #### H EPFP #### [address] [id number] Bilirubin [Mass/Vol] 0.4 mg/dL Normal 0.0 - 1.2 [facility] Comment on above: Performed By: #### H EPFP #### [address] [id number] Bilirubin.direct [Mass/Vol] 0.1 mg/dL Normal 0.0 - 0.3 [facility] Comment on above: Performed By: #### H EPFP #### [address] [id number] Protein [Mass/Vol] 6.9 g/dL Normal 6.4 - 8.2 [facility] Comment on above: Performed By: #### H EPFP #### [address] [id number] LIPID PANEL (CORONARY RISK 2 )on 03-15-2020 [...] dosing. Performed By: #### L IPID #### [address] [id number] Cholesterol in HDL [Mass/Vol] 32.0 mg/dL Abnormal [facility] Comment on above: Result Comment: . AGE VERY LOW LOW NORMAL HIGH 0-19 Y < 35 < 40 40-45 ---- 20-24 Y ---- < 40 >45 ---- >24 Y ---- < 40 40-60 >60 . Performed By: #### L IPID #### [address] [id number] Cholesterol in LDL [Mass/Vol] 130 mg/dL High [...] . Performed By: #### L IPID #### [address] [id number] Cholesterol in VLDL [Mass/Vol] 41 mg/dL High 0 - 40 [facility] Comment on above: Performed By: #### L IPID #### [address] [id number] Cholesterol.total/Cho lesterol in HDL [Mass ratio] 6.3 {ratio} Abnormal [facility] Comment on above: Result Comment: REF VALUES DESIRABLE < 3.4 HIGH RISK > 5.0 Performed By: #### L IPID #### [address] [id number] NON-HDL CHOLESTEROL 171 mg/dL High 0 - 119 [facility] Comment on above: Result Comment: AGE DESIRABLE BORDERLINE HIGH HIGH VERY HIGH 0-19 Y 0 - 119 120 - 144 >/= 145 >/= 160 20-24 Y 0 - 149 150 - 189 >/= 190 ---- >24 Y 30 MG/DL ABOVE LDL CHOLESTEROL GOAL . Performed By: #### L IPID #### [address] [id number] Triglyceride [Mass/Vol] 206 mg/dL High 0 - [...] dosing. Performed By: #### L IPID #### [address] [id number] LUTEINIZING HORMONEon 2019 LUTEINIZING HORMONE 29.3 IU/L Normal [facility] Comment on above: Result Comment: REF VALUES FOLLICULAR PHASE 1.9-12.5 MID-CYCLE 8.7-76.3 LUTEAL PHASE 0.5-16.9 POST MENOPAUSE 5.0-55.2 CHILDREN 0- 6.0 ADULT MALE 18-70 1.5- 9.3 ADULT MALE >70 3.1-34.6 Performed By: #### L H #### [facility] [address] [place] [address] THYROXINE,FREEon 03-15-2020 THYROXINE,FREE 0.80 ng/dL Normal 0.61 - 1.12 [facility] Comment on above: Result Comment: Thyr oxine Free testing is performed using different testing methodology at [facility] than at other [facility]. Direct result comparisons should only be [...] draw. Performed By: #### T 4FRE #### [address] [id number] TSHon 03-15-2020 TSH Qn 4.05 m[IU]/L High 0.44 - 3.98 [facility] Comment on above: Result Comment: TSH testing is performed using different testing methodology at [facility] than at other [facility]. Direct result comparisons should only be made within the same method. Performed By: #### T SH2 #### [address] [id number] TTG AB,IGAon 03-15-2020 TTG AB,IGA <1 Normal 0 - 14 [facility] Comment on above: Result Comment: Rachell ac disease is unlikely. False negative Tissue Transglutaminase Antibody, IgA results can occur in approximately 10% of patients with celiac disease, patients already adhering to a gluten-free diet, or patients with IgA deficiency. Performed By: #### H EPFP #### [address] [id number] MRA CHEST W WO CONTRASTon MRA CHEST W WO CONTRAST [facility] Department of Radiology [address] [place] [id number] Patient Name: KEYONA ATKINS : 2000 Sex: F Age: Race: White Pt. 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 Electronically signed by:Radha Orozco. Transcribed by: [email or web address], User Resident: Electronically Signed by: AMBROCIOJENNIFER ERNESTO @ 04/23/2019 01:10 PM Normal [facility] Comment on above: Order Comment: , , = ========= , Ordering Provider - DEMAR COOMBS MD , MRA HEAD WO CONTRASTon 04-22 MRA HEAD WO CONTRAST [facility] Department of Radiology [address] [place] [id number] Patient Name: KEYONA ATKINS : 2000 Sex: F Age: Race: White Pt. Location: Patient Status: D Ordered Date: 03/24/2019 3:30:00 PM Completed Date: 04/22/2019 12:59 PM Requesting Provider: DEMAR SCHUSTER Attending Provider: DEMRA SCHUSTER Report Copy To: MARIA DE JESUS CASTRO Signs & Symptoms: I10 Essential (primary) hypertension I10 History: Mattie, No FB per mother Sunday [place] auth # [id number] 03/28/19-04/27/19 [id number] *er Comments: , , , Ordering Provider [...] findings. Electronically signed by:Ayana Cary. Transcribed by: [email or web address], User Resident: BARAK FOREMAN Electronically Signed by: AYANA CARY @ 04/23/2019 06:22 PM I personally read this/these film(s) with this resident Normal [facility] Comment on above: Order Comment: , , = ========= , Ordering Provider - DEMAR COOMBS MD , MRI CARDIAC WITH AND WITHOUT CONTRASTon 04-22-2019 MRI CARDIAC WITH AND WITHOUT CONTRAST [facility] Department of Radiology [address] [place] [address] Patient Name: KEYONA ATKINS : 2000 Sex: F Age: Race: White Pt. 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 Electronically signed by:Radha Orozco. Transcribed by: [email or web address], User Resident: Electronically Signed by: RADHA OROZCO @ 04/23/2019 01:10 PM Normal [facility] Comment on above: Order Comment: , [...] Thomas MD on 10/10/2018 12:02 PM Normal [facility] Estradiol, E2on 09-25-2018 Estradiol, E2 Normal [facility] Comment on above: Result Comment: <10 [...] year earlier in obese girls and in -[place] girls. Progression through Cyrus stages is variable. Cyrus stage V (adult) should be reached by age 18. ADDITIONAL INFORMATION This test was developed and its performance characteristics determined by [facility] in a manner consistent with CLIA requirements. This test has not been cleared or approved by the U.S. Food and Drug Administration. Performed at [facility] , [address], [place] [address] Anti TPO ABon 09-24-2018 Anti TPO AB 2884 IU/mL High <35 [facility] FSHon 09-24-2018 FSH 55.73 mIU/mL Normal [facility] Comment on above: Result Comment: (NOTE) [...] 0.8-7.0 LHon 09-24-2018 LH 13.07 mIU/mL Normal [facility] Comment on above: Result Comment: (NOTE) [...] 0.2-5.8 Thyroglobulin Antibodyon Thyroglobulin Antibody 13.3 High [facility] Comment on above: Result Comment: Refe rence range: 0.0 to 4.0 Unit: IU/mL (NOTE) INTERPRETIVE INFORMATION: Thyroglobulin Antibody A value of 4.0 IU/mL or less indicates a negative result for thyroglobulin antibodies. The Thyroglobulin Antibody assay is being performed using the Michael [employer] Access DxI method. Performed by [facility] [employer], [address] [place] [address] [email or web address], Yobany Srivastava MD, Lab. [place] [address] Performed By: #### X THYRG #### [place] [address] Comprehensive Metabolic Pane marlo 09-23-2018 Albumin [Mass/Vol] 4.5 g/dL Normal 3.4-5.2 [facility] ALP [Catalytic activity/Vol] 117 U/L High 54-96 [facility] ALT [Catalytic activity/Vol] 18 U/L Normal <40 [facility] AST [Catalytic activity/Vol] 22 U/L Normal 15-50 [facility] Bilirubin Ql (U) 0.2 mg/dL Normal 0.1-1.0 [facility] Calcium [Mass/Vol] 10.4 mg/dL Normal 8-10.5 [facility] Chloride [Moles/Vol] 107 mmol/L High 95-106 [facility] CO2 [Moles/Vol] 20 mmol/L Low 24-35 [facility] Creatinine [Mass/Vol] 0.46 mg/dL Low 0.5-0.8 [facility] Comment on above: Result Comment: Note : New reference intervals, effective July 09, 2018. Glucose [Mass/Vol] 122 mg/dL High 60-115 [facility] Potassium [Moles/Vol] 4.0 mmol/L Normal 3.7-5.3 [facility] Protein [Mass/Vol] 7.8 g/dL Normal 6.4-8.4 [facility] Sodium [Moles/Vol] 138 mmol/L Normal 135-145 [facility] Urea nitrogen [Mass/Vol] 12 mg/dL Normal 5-18 [facility] Free T4on 09-23-2018 Free T4 [Mass/Vol] 0.8 ng/dL Normal 0.7-2.1 [facility] Hemoglobin A1Con 09-23-2018 HbA1c (Bld) [Mass fraction] 5.2 % Normal 4.0-5.6 [facility] HbA1c (Bld) [Mass fraction] 103 mg/dL Normal [facility] Comment on above: Result Comment: The eAG is derived from the A1c result using a calculation from the Diabetes Control and Complication trial and reflects the average blood glucose over approximately the past 120 days, but weighted to the past 30 days. Lipid Profileon 09-23-2018 Cholesterol [Mass/Vol] 225 mg/dL High 95-195 [facility] Comment on above: Performed By: #### L IPP #### Performed at [address] [address] Cholesterol in HDL [Mass/Vol] 34 mg/dL Low 40-58 [facility] Comment on above: Performed By: #### L IPP #### Performed at [address] [address] Cholesterol in LDL [Mass/Vol] 113 mg/dL Normal 73-117 [facility] Comment on above: Performed By: #### L IPP #### Performed at [address] [address] Triglyceride [Mass/Vol] 390 mg/dL High 29-200 [facility] Comment on above: Performed By: #### L IPP #### Performed at [address] [address] VLDL Cholesterol 78 mg/dL High 6-20 [facility] Comment on above: Performed By: #### L IPP #### Performed at [address] [address] Hours Fasting Patient not fasting [facility] Comment on above: Performed By: #### L IPP #### Performed at [address] [address] TSHon 09-23-2018 TSH Qn 6.008 uIU/mL High 0.4-4.0 [facility] Vitamin D 25 Hydroxyon 09-23 Vitamin D 25 Hydroxy 20 ng/mL Low 30-120 [facility] Comment on above: Result Comment: (NOTE) <20 considered deficient. 21-29 considered insufficient. Reference ranges are based on Endocrine Society criteria. CREATININE,SERUMon 8 Creatinine [Mass/Vol] Unable to calculat e GFR due to inappropriate age/gender/creatinin e value. Normal [facility] Comment on above: Performed By: #### C REAT #### Testing performed at [facility] [address] [place], [place] [id number] Creatinine [Mass/Vol] 0.5 mg/dL Low 0.52-1.04 [facility] Comment on above: Performed By: #### C REAT #### Testing performed at [facility] [address] [place], [place] [id number] CT CHEST WITH CONTRASTon CT CHEST WITH [...] absence of the inferior vena cava. Normal [facility] IMPRESSION: 1. There is bovine configuration to [...] inferior vena cava. Invalid Interpretation Code RADIOLOGY [id number],IGAon 2017 TTG- IGA <2 Normal 0-3 [facility] Comment on above: Result Comment: (NOT E) Negative 0 - 3 Weak Positive 4 - 10 Positive >10 Tissue Transglutaminase (tTG) has been identified as the endomysial antigen. Studies have demonstr- ated that endomysial IgA antibodies have over 99% specificity for gluten sensitive enteropathy. PERFORMED AT [facility] Performed By: #### C MPF, TSH2, LIP2, T42, ACBC #### [place] [address] #### LTTG #### Testing performed at [facility] [address] [place] [address] [place] [address] 25 0H VITAMIN D LEVELon 06-13 25 0H VITAMIN D LEVEL 16.5 NG/ML Low >30 [facility] Comment on above: Result Comment: DEFICIENT <20 NG/ML INSUFFICIENT 20-<30 NG/ML SUFFICIENT 30-100 NG/ML POTENTIAL TOXICITY >100 NG/ML Performed By: #### V ITD #### Testing performed at [address] [address] CBCon 06-22-2018 ABSOLUTE BAS 0.0 X10 Normal [facility] Comment on above: Performed By: #### C MPF, TSH2, LIP2, T42, ACBC #### Testing performed at [address] [address] #### LTTG #### Testing performed at [place] [address] [place] [address] ABSOLUTE EOS 0.30 X10 Normal [facility] Comment on above: Performed By: #### C MPF, TSH2, LIP2, T42, ACBC #### Testing performed at [address] [address] #### LTTG #### Testing performed at [place] [address] [place] [address] ABSOLUTE NEUTROPHIL COUNT 3.0 x10 Normal 1.0-7.0 [facility] Comment on above: Performed By: #### C MPF, TSH2, LIP2, T42, ACBC #### Testing performed at [address] [address] #### LTTG #### Testing performed at [address] [place] [address] Basophils/100 WBC (Bld) 0.5 % Normal 0.0-2.0 [facility] Comment on above: Performed By: #### C MPF, TSH2, LIP2, T42, ACBC #### Testing performed at [address] [address] #### LTTG #### Testing performed at [address] [place] [address] DTYPE AUTO DIFF Normal [facility] Comment on above: Performed By: #### C MPF, TSH2, LIP2, T42, ACBC #### Testing performed at [address] [address] #### LTTG #### Testing performed at [address] [place] [address] Eosinophils/100 WBC (Bld) 4.8 % Normal 0.0-11.0 [facility] Comment on above: Performed By: #### C MPF, TSH2, LIP2, T42, ACBC #### Testing performed at [address] [address] #### LTTG #### Testing performed at [place] [address] [place] [address] Lymphocytes (Bld) [#/Vol] 1.50 X10 Normal [facility] Comment on above: Performed By: #### C MPF, TSH2, LIP2, T42, ACBC #### Testing performed at [address] [address] #### LTTG #### Testing performed at [address] [place] [address] Lymphocytes/100 WBC (Bld) 29.0 % Normal 20.0-55.0 [facility] Comment on above: Performed By: #### C MPF, TSH2, LIP2, T42, ACBC #### Testing performed at [address] [address] #### LTTG #### Testing performed at [address] [address] Monocytes (Bld) [#/Vol] 0.5 X10 Normal [facility] Comment on above: Performed By: #### C MPF, TSH2, LIP2, T42, ACBC #### Testing performed at [address] [address] #### LTTG #### Testing performed at [address] [address] Monocytes/100 WBC (Bld) 9.6 % Normal 0.0-10.0 [facility] Comment on above: Performed By: #### C MPF, TSH2, LIP2, T42, ACBC #### Testing performed at [address] [address] #### LTTG #### Testing performed at [address] [address] Neutrophils/100 WBC (Bld) 56.1 % Normal 37.0-75.0 [facility] Comment on above: Performed By: #### C MPF, TSH2, LIP2, T42, ACBC #### Testing performed at [address] [address] #### LTTG #### Testing performed at [address] [place] [address] Erythrocyte distribution width (RBC) [Ratio] 15.2 % High 11.5-14.5 [facility] Comment on above: Performed By: #### C MPF, TSH2, LIP2, T42, ACBC #### Testing performed at [address] [address] #### LTTG #### Testing performed at [address] [place] [address] Hematocrit (Bld) [Volume fraction] 37.0 % Normal 36.0-48.0 [facility] Comment on above: Performed By: #### C MPF, TSH2, LIP2, T42, ACBC #### Testing performed at [address] [address] #### LTTG #### Testing performed at [address] [place] [address] Hemoglobin (Bld) [Mass/Vol] 12.1 g/dL Normal 12.0-16.0 [facility] Comment on above: Performed By: #### C MPF, TSH2, LIP2, T42, ACBC #### Testing performed at [address] [address] #### LTTG #### Testing performed at [address] [address] MCH (RBC) [Entitic mass] 28.1 pg Normal 26.0-35.0 [facility] Comment on above: Performed By: #### C MPF, TSH2, LIP2, T42, ACBC #### Testing performed at [address] [address] #### LTTG #### Testing performed at [address] [place] [address] MCHC (RBC) [Mass/Vol] 32.7 g/dL Normal 27.0-37.0 [facility] Comment on above: Performed By: #### C MPF, TSH2, LIP2, T42, ACBC #### Testing performed at [address] [address] #### LTTG #### Testing performed [address] [facility] [place] [address] MCV (RBC) [Entitic vol] 85.8 fL Normal 80.0-100.0 [facility] Comment on above: Performed By: #### C MPF, TSH2, LIP2, T42, ACBC #### Testing performed at [address] [address] #### LTTG #### Testing performed at [address] [place] [address] Platelet mean volume (Bld) [Entitic vol] 8.2 fL Normal 7.4-11.0 [facility] Comment on above: Performed By: #### C MPF, TSH2, LIP2, T42, ACBC #### [place] [address] #### LTTG #### Testing performed at [address] [address] Platelets (Bld) [#/Vol] 194 /cmm Normal 130.0-400.0 [facility] Comment on above: Performed By: #### C MPF, TSH2, LIP2, T42, ACBC #### Testing performed at [address] [address] #### LTTG #### Testing performed at [address] [address] RBC (Bld) [#/Vol] 4.32 /cmm Normal 4.0-5.4 [facility] Comment on above: Performed By: #### C MPF, TSH2, LIP2, T42, ACBC #### Testing performed at [address] [address] #### LTTG #### Testing performed at [address] [address] WBC (Bld) [#/Vol] 5.3 /cmm Normal 3.6-13.0 [facility] Comment on above: Performed By: #### C MPF, TSH2, LIP2, T42, ACBC #### Testing performed at [address] [address] #### LTTG #### Testing performed at [address] [place] [address] CMP FASTINGon 06-22-2018 Calcium [Mass/Vol] 10.0 mg/dL Normal 8.8-10.7 [facility] Comment on above: Performed By: #### C MPF, TSH2, LIP2, T42, ACBC #### Testing performed at [address] [address] #### LTTG #### Testing performed at [address] [place] [address] Chloride [Moles/Vol] 104 mmol/L Normal 98-107 [facility] Comment on above: Performed By: #### C MPF, TSH2, LIP2, T42, ACBC #### Testing performed at [address] [address] #### LTTG #### Testing performed at [address] [place] [address] CO2 [Moles/Vol] 21 mmol/L Low 22-30 [facility] Comment on above: Performed By: #### C MPF, TSH2, LIP2, T42, ACBC #### Testing performed at [address] [address] #### LTTG #### Testing performed at [address] [place] [address] Glucose [Mass/Vol] 95 mg/dL Normal 70-100 [facility] Comment on above: Result Comment: NORMAL <100 mg/dL PREDIABETES 101-126 mg/dL DIABETES 126 mg/dL or higher Performed By: #### C MPF, TSH2, LIP2, T42, ACBC #### Testing performed at [address] [address] #### LTTG #### Testing performed at [address] [place] [address] Potassium [Moles/Vol] 4.0 mmol/L Normal 3.5-5.1 [facility] Comment on above: Performed By: #### C MPF, TSH2, LIP2, T42, ACBC #### Testing performed at [address] [address] #### LTTG #### Testing performed at [address] [place] [address] Sodium [Moles/Vol] 137 mmol/L Normal 136-145 [facility] Comment on above: Performed By: #### C MPF, TSH2, LIP2, T42, ACBC #### Testing performed at [address] [address] #### LTTG #### Testing performed at [address] [address] A:G RATIO 1.4 RATIO Normal 1.3-2.2 [facility] Comment on above: Performed By: #### C MPF, TSH2, LIP2, T42, ACBC #### Testing performed at [address] [address] #### LTTG #### Testing performed at [address] [address] Albumin [Mass/Vol] 4.3 G/dl Normal 3.5-5.0 [facility] Comment on above: Performed By: #### C MPF, TSH2, LIP2, T42, ACBC #### Testing performed at [address] [address] #### LTTG #### Testing performed at [address] [address] ALP [Catalytic activity/Vol] 149 U/L High 38-126 [facility] Comment on above: Performed By: #### C MPF, TSH2, LIP2, T42, ACBC #### Testing performed at [address] [address] #### LTTG #### Testing performed at [address] [place] [address] [place] [address] ALT [Catalytic activity/Vol] 21 U/L Normal 14-54 [facility] Comment on above: Performed By: #### C MPF, TSH2, LIP2, T42, ACBC #### Testing performed at [address] [address] #### LTTG #### Testing performed at [address] [address] AST [Catalytic activity/Vol] 23 U/L Normal 15-41 [facility] Comment on above: Performed By: #### C MPF, TSH2, LIP2, T42, ACBC #### Testing performed at [address] [address] #### LTTG #### Testing performed at [address] [address] Bilirubin [Mass/Vol] 0.6 mg/dL Normal 0.2-1.9 [facility] Comment on above: Performed By: #### C MPF, TSH2, LIP2, T42, ACBC #### Testing performed at [address] [address] #### LTTG #### Testing performed at [address] [address] Creatinine [Mass/Vol] 0.5 mg/dL Low 0.52-1.04 [facility] Comment on above: Performed By: #### C MPF, TSH2, LIP2, T42, ACBC #### Testing performed at [address] [address] #### LTTG #### Testing performed at [address] [address] GFR/1.73 sq M predicted among non-blacks MDRD (S/P/Bld) [Vol rate/Area] Unable to calculate GFR due to inappropriate age/gender/creatinin e value. Normal [facility] Comment on above: Performed By: #### C MPF, TSH2, LIP2, T42, ACBC #### Testing performed at [address] [address] #### LTTG #### Testing performed at [address] [place] [address] Protein [Mass/Vol] 7.4 g/dL Normal 6.3-8.6 [facility] Comment on above: Performed By: #### C MPF, TSH2, LIP2, T42, ACBC #### Testing performed at [address] [address] #### LTTG #### Testing performed at [address] [place] [address] Urea nitrogen [Mass/Vol] 10 mg/dL Normal 7-20 [facility] Comment on above: Performed By: #### C MPF, TSH2, LIP2, T42, ACBC #### Testing performed at [address] [address] #### LTTG #### Testing performed at [address] [place] [address] FREE T4on 06-22-2018 Free T4 [Mass/Vol] 0.68 ng/dL Low 0.93-1.60 [facility] Comment on above: Performed By: #### C MPF, TSH2, LIP2, T42, ACBC #### Testing performed at [address] [address] #### LTTG #### Testing performed at [address] [place] [address] HEMOGLOBIN A1Con 06-22-2018 HbA1c (Bld) [Mass fraction] 5.2 % Normal <6 [facility] Comment on above: Result Comment: NORMAL <5.7% PREDIABETES 5.7-6.4% DIABETES 6.5% OR HIGHER Performed By: #### H A1CT #### Testing performed at [address] [address] HbA1c (Bld) [Mass fraction] 103 mg/dL Normal [facility] Comment on above: Performed By: #### H A1CT #### Testing performed at [address] [address] LIPID PROFILEon 06-22-2018 Cholesterol [Mass/Vol] 234 mg/dL High 82-199 [facility] Comment on above: Performed By: #### C MPF, TSH2, LIP2, T42, ACBC #### Testing performed at [address] [address] #### LTTG #### Testing performed at [address] [place] [address] Cholesterol in HDL [Mass/Vol] 39 mg/dL Low 40-60 [facility] Comment on above: Performed By: #### C MPF, TSH2, LIP2, T42, ACBC #### Testing performed at [address] [address] #### LTTG #### Testing performed at [address] [place] [address] Cholesterol in LDL [Mass/Vol] 154 mg/dL High 0-100 [facility] Comment on above: Performed By: #### C MPF, TSH2, LIP2, T42, ACBC #### Testing performed at [address] [address] #### LTTG #### Testing performed at [address] [address] Cholesterol in VLDL [Mass/Vol] 41 mg/dL High 5.0-25.0 [facility] Comment on above: Performed By: #### C MPF, TSH2, LIP2, T42, ACBC #### Testing performed at [address] [address] #### LTTG #### Testing performed at [address] [place] [address] Cholesterol.total/Cho lesterol in HDL [Mass ratio] 6.00 {ratio} Normal [facility] Comment on above: Result Comment: RISK TOTAL/HDL RATIO MEN WOMEN 1/2 AVERAGE 3.43 3.27 AVERAGE 4.97 4.44 2X AVERAGE 9.55 7.05 3X AVERAGE 23.99 11.04 Performed By: #### C MPF, TSH2, LIP2, T42, ACBC #### Testing performed at [address] [address] #### LTTG #### Testing performed at [facility] [place] [address] [place] [address] [place] [address] Triglyceride [Mass/Vol] 203 mg/dL High <150 [facility] Comment on above: Performed By: #### C MPF, TSH2, LIP2, T42, ACBC #### Testing performed at [address] [address] #### LTTG #### [facility] [place] [address] [place] [address] [place] [address] TSHon 06-22-2018 TSH Qn 5.424 uIU/ML Normal 0.36-5.80 [facility] Comment on above: Performed By: #### C MPF, TSH2, LIP2, T42, ACBC #### Testing performed at [address] [address] #### LTTG #### [facility] [place] [address] [place] [address] Vital Signs Date Time Vital Sign Value Performing Clinician Facility 01-16-2024 08:55-0400 Blood Pressure Location Arelis Lue [facility] 01-16-2024 08:55-0400 Body temperature 98.6 [degF] Arelis Lue [facility] 01-16-2024 08:55-0400 Diastolic blood pressure 84 mm[Hg] Arelis Lue [facility] 01-16-2024 08:55-0400 Heart rate 67 /min Arelis Lue [facility] 01-16-2024 08:55-0400 Systolic blood pressure 132 mm[Hg] Arelis Lue [facility] 10-02-2023 13:02-0500 Blood Pressure Location MARIA DE JESUS PACO [facility] 10-02-2023 13:02-0500 Diastolic blood pressure 69 mm[Hg] MARIA DE JESUS PACO [facility] 10-02-2023 13:02-0500 Heart rate 80 /min MARIA DE JESUS PACO [facility] 10-02-2023 13:02-0500 Respiratory rate 16 /min MARIA DE JESUS PACO [facility] 10-02-2023 13:02-0500 Systolic blood pressure 121 mm[Hg] MARIA DE JESUS PACO [facility] 03-14-2023 09:07-0400 Blood Pressure Location Arelis Lue [facility] 03-14-2023 09:07-0400 Diastolic blood pressure 87 mm[Hg] Arelis Lue [facility] 03-14-2023 09:07-0400 Heart rate 109 /min Arelis Lue [facility] 03-14-2023 09:07-0400 Respiratory rate 16 /min Arelis Lue [facility] 03-14-2023 09:07-0400 Systolic blood pressure 137 mm[Hg] Arelis Lue [facility] 10-27-2022 09:45-0400 Blood Pressure Location Arelis Lue [facility] 10-27-2022 09:45-0400 Diastolic blood pressure 74 mm[Hg] Arelis Lue [facility] 10-27-2022 09:45-0400 Heart rate 93 /min Arelis Lue [facility] 10-27-2022 09:45-0400 Systolic blood pressure 120 mm[Hg] Arelis Lue [facility] 10-04-2018 08:20-0500 BMI (Body Mass Index) 41.7 kg/m2 [facility] 10-04-2018 08:20-0500 BP Diastolic 78 mm[Hg] [facility] 10-04-2018 08:20-0500 BP Systolic 118 mm[Hg] [facility] 10-04-2018 08:20-0500 Height 148.6 cm [facility] 10-04-2018 08:20-0500 Pulse (Heart Rate) 83 /min [facility] 10-04-2018 08:20-0500 Pulse Oximetry 97 % [facility] 10-04-2018 08:20-0500 Respiratory Rate 16 /min [facility] 10-04-2018 08:20-0500 Weight 92.08 kg [facility] 09-05-2018 09:01-0500 BMI (Body Mass Index) 41.29 kg/m2 [facility] Work Phone: 09-05-2018 09:01-0500 Body Temperature 98.01 [degF] [facility] Work Phone: 09-05-2018 09:01-0500 BP Diastolic 78 mm[Hg] [facility] Work Phone: 09-05-2018 09:01-0500 BP Systolic 122 mm[Hg] [facility] Work Phone: 09-05-2018 09:01-0500 Height 148.6 cm [facility] Work Phone: 09-05-2018 09:01-0500 Pulse (Heart Rate) 96 /min [facility] Work Phone: 09-05-2018 09:01-0500 Pulse Oximetry 98 % [facility] Work Phone: 09-05-2018 09:01-0500 Respiratory Rate 16 /min [facility] Work Phone: 09-05-2018 09:01-0500 Weight 91.17 kg [facility] Work Phone: 07-12-2018 08:26-0500 BMI (Body Mass Index) 42.13 kg/m2 [facility] Work Phone: 07-12-2018 08:26-0500 BP Diastolic 82 mm[Hg] [facility] Work Phone: 07-12-2018 08:26-0500 BP Systolic 126 mm[Hg] [facility] Work Phone: 07-12-2018 08:26-0500 Height 147.3 cm [facility] Work Phone: 07-12-2018 08:26-0500 Pulse (Heart Rate) 125 /min [facility] Work Phone: 07-12-2018 08:26-0500 Pulse Oximetry 97 % [facility] Work Phone: 07-12-2018 08:26-0500 Respiratory Rate 16 /min [facility] Work Phone: 07-12-2018 08:26-0500 Weight 91.44 kg Hern[facility] Haque [facility] Work Phone: Encounters Encounter Date Encounter Type Care Provider Facility Start: 01-14-2025 ambulatory Arelis KaryGena Diggsvenancio [facility] Start: 10-07-2024 ambulatory MIKAELA SHAMMO [facility] Start: 07-23-2024 End: 07-23-2024 ambulatory MIKAELA SHAMMO [facility] Start: 01-23-2024 End: 01-24-2024 Pre-admission assessment Arelis Yip [facility] Start: 01-16-2024 End: 01-16-2024 ambulatory Arelis Diggsvenancio [facility] Start: 01-16-2024 End: 01-16-2024 Patient encounter procedure Arelis PrestonGena Diggsvenancio [facility] Start: 12-12-2023 End: 12-12-2023 ambulatory BARAK Crawford [facility] Facility:[facility] Start: 10-02-2023 End: 10-02-2023 Lab Drop off MARIA DE JESUS ANTONIO [facility] Start: 10-02-2023 End: 10-02-2023 Patient encounter procedure MARIA DE JESUS ANTONIO [facility] Start: 09-19-2023 End: 09-19-2023 Patient encounter procedure Arelis MGena Phi [facility] Start: 07-03-2023 End: 07-04-2023 ambulatory BARAK SOMMERS Facility:[facility] Start: 03-14-2023 End: 03-14-2023 Patient encounter procedure Arelis Yip [facility] Start: 11-13-2022 End: 11-13-[address] LIZ Avery Facility:[facility] Start: 11-13-2022 End: 11-13-2022 Patient encounter procedure Arelis iYp [facility] Start: 11-08-2022 End: 11-08-[address] ILIA COBB Facility:[facility] Start: 11-04-2022 Encounter for preprocedural cardiovascular examination ARELIS YIP . [facility] Start: 11-04-2022 Encounter for preprocedural laboratory examination ARELIS YIP . [facility] Start: 11-01-2022 End: 11-02-[address] ILIA COBB Facility:[facility] Start: 11-01-2022 End: 11-02-2022 Encounter for preprocedural cardiovascular examination DR ILIA COBB Facility:[facility] Start: 10-27-2022 End: 10-27-2022 Patient encounter procedure Arelis PrestonGena Yip [facility] Start: 08-26-2022 End: 08-27-[address] ILIA COBB Facility:[facility] Start: 11-29-2018 End: 11-29-2018 Eliel Monosn Work Phone: [facility] Start: 10-04-2018 End: 10-04-2018 Letter encounter Hernesto Haque Work Phone: [facility] Start: 10-04-2018 End: 10-04-2018 Office outpatient visit 25 minutes Hernesto Haque Work Phone: [facility] Comment on above: 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); Aortic arch anomaly; Chronic pulmonary hypertension; Essential hypertension, benign; Inappropriate sinus tachycardia; Mixed hyperlipidemia; Lymphedema; Obstructive sleep apnea Start: 09-12-2018 End: 09-12-2018 Patient encounter procedure LASHAE HASTINGS [facility] Start: 09-12-2018 End: 09-12-2018 Office outpatient visit 15 minutes Lashae Hastings Work Phone: [facility] Comment on above: Excessive cerumen in left ear canal (Primary Dx); Abrasion of nose, initial encounter Start: 09-05-2018 End: 09-05-2018 Telephone encounter Ilia Monson Work Phone: [facility] Comment on above: Referral Start: 09-05-2018 Patient encounter procedure ILIA MONSON [facility] Start: 09-05-2018 End: 09-05-2018 Office outpatient visit 15 minutes Ilia Monson Work Phone: [facility] Comment on above: Umanzor's syndrome (P rimary Dx); Abnormal thyroid blood test; Mixed hyperlipidemia; Vitamin D deficiency Start: 08-30-2018 End: 08-30-2018 Letter encounter Hernesto Haque Work Phone: [facility] Start: 08-08-2018 End: 08-08-2018 Patient encounter procedure Hernesto Haque Work Phone: [facility] Comment on above: Arrived Start: 07-25-2018 End: 07-25-2018 Patient encounter procedure Hernesto Haque Work Phone: [facility] Comment on above: Pre-operative cardio vascular examination (Primary Dx) Start: 07-24-2018 End: 07-24-2018 Patient encounter procedure LASHAE TREVINO [facility] Start: 07-12-2018 End: 07-12-2018 Patient encounter procedure García Rojas Work Phone: [facility] Start: 07-12-2018 End: 07-12-2018 Office outpatient new 60 minutes Hernesto Haque Work Phone: [facility] Comment on above: Umanzor's syndrome (P rimary Dx); Abnormality of aortic arch branch; Tachycardia, unspecified; Morbid obesity; Mixed hyperlipidemia; Obstructive sleep apnea; Lymphedema of right lower extremity Start: 06-28-2018 End: 06-28-2018 Patient encounter procedure Addi Peterson [facility] Comment on above: Other Start: 06-26-2018 End: 06-26-2018 Patient encounter procedure Addi Peterson [facility] Comment on above: Results Start: 06-20-2018 End: 06-20-2018 Patient encounter procedure LASHAE TREVINO [facility] Start: 06-06-2018 Patient encounter procedure ILIA MONSON [facility] Procedures Date Procedure Procedure Detail Performing Clinician [...] Detail Author Start: 06-22-2019 Thyrotropin Qn [facility] Start: 04-13-2019 Influenza vaccination INFLUENZ A VACCINE (Season Ended) [facility] Start: 03-07-2019 End: 03-07-2019 Office Visit 03/07/2019 Office Visit Cardiovascular Medicine eHrnesto Haque II, MD [address] [place] [address] [phone] [facility] Start: 03-05-2019 End: 03-05-2019 Ambulatory 03/05/2019 Office Visit Family Medicine Ilia Monson PA [address] [place] [address] [phone] [facility] Start: 12-11-2018 End: 12-11-2018 Office Visit 12/11/2018 Office Visit Otolaryngology Thao Gabriel MD [address] [address] [phone] [facility] Start: 10-04-2018 End: 10-04-2018 Ambulatory 10/04/2018 Office Visit Cardiovascular Medicine Hernesto Haque II, MD [address] [place] [address] [phone] [facility] Start: 09-28-2018 End: 06-28-2019 LIPID PANEL W CALCULATED LDL LIPID PANEL W CALCULATED LDL Routine Mixed hyperlipidemia Expected: 09/28/2018, Expires: 06/28/2019 [facility] Work Phone: Comment on above: Expected: 09/28/2018 , Expires: 06/28/2019 Start: 09-28-2018 End: 06-28-2019 VITAMIN D (25-HYDROXY,TOTAL) VITAMIN D (25-HYDROXY,TOTAL) Routine Vitamin D deficiency Expected: 09/28/2018, Expires: 06/28/2019 [facility] Work Phone: Comment on above: Expected: 09/28/2018 , Expires: 06/28/2019 Start: 09-05-2018 End: 09-05-2018 Ambulatory [facility] Start: 08-30-2018 End: 08-30-2018 Ambulatory 08/30/2018 Office Visit Cardiovascular Medicine Hernesto Haque II, MD [address] [place] [address] [phone] [facility] Start: 07-25-2018 End: 07-25-2019 CREATININE SERUM CREATININE SERUM Routine Pre-operative cardiovascular examination Expected: 07/25/2018, Expires: 07/25/2019 [facility] Work Phone: Comment on above: Expected: 07/25/2018 , Expires: 07/25/2019 Start: 07-15-2018 End: 06-28-2019 TSH W/FT4 REFLEX TSH W/FT4 REFLEX Routine Abnormal thyroid blood test Expected: 07/15/2018, Expires: 06/28/2019 [facility] Work Phone: Comment on above: Expected: 07/15/2018 , Expires: 06/28/2019 Start: 07-12-2018 End: 07-12-2019 CT of thorax with contrast CT CHEST WITH CONTRAST Routine 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 Start: 04-13-2018 Influenza vaccination INFLUENZA VACC INE (#1) [facility] Work Phone: Start: 04-13-2018 Influenza vaccinatio n given SEQUENTIAL INFLUENZA VACCINE (#1) [facility] Start: 2017 Meningococcal conjug ate vaccination [facility] Work Phone: Start: 2016 Vaccination for mingo n papillomavirus [facility] Start: 2014 HIV screening HIV SCREENING DISCUSSION [facility] Work Phone: Start: 2014 Varicella vaccination O [facility] Work Phone: Start: 2012 Vaccination for mingo n papillomavirus HPV VACCINE ADOL (1 - Female 3-dose series) [facility] Work Phone: Start: 2008 DTAP/TDAP/TD VACCINE (1 - Tdap) DTAP/TDAP/TD VACCINE (1 - Tdap) [facility] Work Phone: Start: 2008 Tetanus, diphtheria and acellular pertussis vaccination DTAP VACCINES (1 - Tdap) [facility] Start: 2002 Hepatitis A immunization [facility] Work Phone: Start: 2002 Sdabazc-agfbl-stxutk a vaccination [facility] Work Phone: Start: 2001 Inactivated poliovir us vaccine (product) [facility] Work Phone: Start: 2001 Hepatitis B vaccination [facility] Work Phone: Start: 2001 Tetanus vaccination TETANUS EVERY 10 YR [facility] Ambulatory ECG ME ECG (OFFICE R EAD ONLY) Routine 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 Ordered: 07/12/2018 [facility] Work Phone: Comment on above: Ordered: 07/12/2018 Transthoracic echocardiography ECHOCARDIOGRAM Routine 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 Ordered: 07/12/2018 [facility] Work Phone: Comment on above: Ordered: 07/12/2018 Immunizations Immunization Date Immunization Notes Care Provider Reshma cabral 04-01-2021 SARS-CoV-2 (COVID-19 ) mRNA BNT-162b2 vax Arelis Lue [facility] 03-11-2021 SARS-CoV-2 (COVID-19 ) mRNA BNT-162b2 vax Arelis Lue [facility] 11-07-2019 HPV, unspecified formulation Arelis Lue [facility] 07-09-2019 HPV, unspecified formulation Arelis Lue [facility] 05-06-2019 HPV, unspecified formulation Arelis Lue [facility] 04-29-2019 hepatitis A vaccine, unspecified formulation Arelis Lue [facility] 04-29-2019 meningococcal ACWY vaccine, unspecified formulation Arelis Lue [facility] 04-10-2019 influenza virus vacc ine, unspecified formulation Arelis Lue [facility] 09-05-2013 hepatitis A vaccine, unspecified formulation Arelis Lue [facility] 09-05-2013 meningococcal ACWY vaccine, unspecified formulation Arelis Lue [facility] 09-05-2013 tetanus toxoid, redu oj diphtheria toxoid, and acellular pertussis vaccine, adsorbed Arelis Lue [facility] 03-22-2006 diphtheria, tetanus toxoids and acellular pertussis vaccine Arelis Lue [facility] 03-22-2006 measles, mumps and rubella virus vaccine Arelis Lue [facility] 03-22-2006 poliovirus vaccine, unspecified formulation Arelis Lue [facility] 07-20-2004 influenza, whole Arelis Lue [facility] 06-29-2003 influenza virus vacc ine, unspecified formulation Arelis Lue [facility] 05-28-2003 diphtheria, tetanus toxoids and acellular pertussis vaccine Arelis Lue [facility] 05-28-2003 measles, mumps and rubella virus vaccine Arelis Lue [facility] 02-10-2002 DTaP, unspecified formulation Arelis Lue [facility] 02-10-2002 Hib, unspecified formulation Arelis Lue [facility] 02-10-2002 poliovirus vaccine, unspecified formulation Arelis Lue [facility] 2001 DTaP, unspecified formulation Arelis Lue [facility] 2001 poliovirus vaccine, unspecified formulation Arelis Lue [facility] 2001 DTaP, unspecified formulation Arelis Lue [facility] 2001 poliovirus vaccine, unspecified formulation Arelis Lue [facility] Payers Date Payer Category Payer Unknown xxxxxxxxxxxx 1. [id number] 2001 Unknown [id number] 2.16.84 [id number] 2001 Unknown [id number] 2.16.84 [id number] 2001 Unknown [id number] 2.16.84 [id number] 2001 Unknown [id number] 2.16.84 [id number] 2001 Unknown [id number] 2.16.8 [id number] 2001 Unknown [id number] 2.16.8 [id number] 2001 Unknown [id number] 2.16.8 [id number] 2001 Unknown [id number] 2.16.8 [id number] 2001 Unknown [id number] 2.16.8 [id number] 2001 Unknown [id number] 2.16.8 [id number] 1974 Unknown [id number] 2.16.8 [id number] 1974 Unknown [id number] 2.16.8 [id number] 1974 Unknown [id number] 2.16.8 [id number] 1959 Unknown [id number] Social History Date Type Detail Facility Start: 07-12-2018 End: 01-16-2024 Tobacco smoking status [facility] Never smoker [facility] Sex Assigned At Not on file [facility] Work Phone: Tobacco smoking status Never [facility] Sex Assigned At Female [facility] Functional Status Date Assessment Result Facility 01-16-2024 Functional Status N/A [facility] 10-02-2023 Functional Status N/A [facility] 03-14-2023 Functional Status N/A [facility] 03-17-2023 Functional Status N/A [facility] [address] Clinical Notes 10-27-2022 to 07-23-2024 Note Date [...] provider. Document Revised: 12/08/2021 Document Reviewed: 12/08/2021 Elsevier Patient Education ? 2023 [facility]kr[facility] 01-16-2024 Hospital Discharg e instructions Patient [...] provider. Document Revised: 12/08/2021 Document Reviewed: 12/08/2021 [employer] Patient Education 2022 Gangkr. Follow Up Care 01/14/2024 11:04:14 With:Phi MTZ, PASQUALE Romo, URO Address: [address], [place] [phone] When: Unknown [facility] 10-02-2023 Hospital Discharg e instructions Patient Education 10/02/2023 14:03:01 Kidney Stones, Grgn-be-Gmrv Kidney Stones Kidney stones are rock-like masses [...] Follow these instructions at home: Medicines Take xmye-knb-rwprcwu and prescription medicines only as told by [...] provider. Document Revised: 04/03/2022 Document Reviewed: 04/03/2022 [employer] Patient Education 2022 Gangkr. Follow Up Care 09/19/2023 09:59:17 With:PACO ROWE, MARIA DE JESUS Perez, URL Address: When:1 year [facility] 03-14-2023 Hospital Discharg e instructions Patient Education [...] include: ?8 oz (237 mL) of milk, tdoyvko-gcfewxciriul-jdmcq milk, and calcium-fortifiedfruit juice. Calcium-fortified means that [...] ?Spinach (cooked), rhubarb, beets, sweet potatoes, and Bruneian chard. ?Peanuts. ?Potato chips, irish fries, and baked potatoes with skin on. ?Nuts and nut products. ?Chocolate. If you regularly take a diuretic medicine, make sure to eat at least 1 or 2 servings of fruits or vegetables that are high in potassium each day. These include: ?Avocado. ?Banana. ?Maben, prune, carrot, or tomato juice. ?Baked potato. [...] magnesium, fish oil, or vitamin B6. Take ccha-ezj-ujoibhw and prescription medicines only as told by [...] Casseroles. Pizza. Lasagna. Frozen meals. Potato chips. Chinese fries. The items listed above may not [...] provider. Document Revised: 04/10/2022 Document Reviewed: 04/10/2022 [employer]umiThe[employer] Patient Education 2022 Gangkr. Follow Up Care 11/13/2022 09:26:52 With:Phi MTZ, Arelis Velazquez, URL, URO Address: When:Within 6 Month(s) Comments:w/ KUB and RASHEEDA and 24 hr urine [facility] 03-14-2023 Hospital Discharg e instructions Follow Up Care 03/14/2023 09:44:41 With:Phi MTZ, PASQUALE Romo, URO Address: [address], [facility] [place] [phone] When: Unknown [facility] 11-13-2022 Hospital Discharg e instructions Patient Education [...] include: ?Spinach. ?Rhubarb. ?Beets. ?Potato chips and irish fries. ?Nuts. If you regularly take a diuretic medicine, make sure to eat at least 1 2 fruits or vegetables high in potassium each day. These include: ?Avocado. ?Banana. ?Maben, prune, carrot, or tomato juice. ?Baked potato. [...] Casseroles. Pizza. Lasagna. Frozen meals. Potato chips. Chinese fries. Summary You can reduce your risk [...] 11/24/2011 Document Revised: 11/19/2019 Document Reviewed: 07/10/2017 LumiThe[employer] Patient Education 2020 Gangkr. 11/13/2022 09:24:55 [facility] - Cystoscopy with Stent [...] Up Care 11/10/2022 09:26:19 With:Arelis Yip Address: [address], [facility] [place] [phone] Business (1) [address], [address] [phone] Business (1) When: Unknown Comments:Office to schedule follow up in 6-8 wks with renal US, KUB and 24 hr urine stone workup, labs [facility] 11-01-2022 Note EXAMINATION: XR CHES T 2 [...] authenticated by: DARIEL CHRISTINE Date: 2022-11-01 09:20 [facility] 10-27-2022 Hospital Discharg e instructions Patient Education [...] include: ?Spinach. ?Rhubarb. ?Beets. ?Potato chips and irish fries. ?Nuts. If you regularly take a diuretic medicine, make sure to eat at least 1 2 fruits or vegetables high in potassium each day. These include: ?Avocado. ?Banana. ?Maben, prune, carrot, or tomato juice. ?Baked potato. [...] Casseroles. Pizza. Lasagna. Frozen meals. Potato chips. Chinese fries. Summary You can reduce your risk [...] 11/24/2011 Document Revised: 11/19/2019 Document Reviewed: 07/10/2017 LumiThe[employer] Patient Education 2020 Gangkr. Follow Up Care 09/07/2022 10:54:19 With:Phi MTZ, Arelis Velazquez, URL, URO Address: When: Unknown [facility] Evaluation + Plan note No data available for this section [facility] Evaluation + Plan note Future Appointments Appointment Date:01/17/2023 08:45:00 AM Scheduled Provider:Arelis Yip MD Location:[facility] Appointment Type:URO Office Visit [facility] Evaluation + Plan note Future Appointments Appointment Date:09/19/2023 08:45:00 AM Scheduled Provider:Arelis Yip MD Location:[facility] Appointment Type:URO Office Visit Diagnostic Tests PendingUric Acid 03/14/23PTH Intact 03/14/23 [facility] Evaluation + Plan note Future Appointments Appointment Date:10/02/2023 12:40:00 PM Scheduled Provider:MARIA DE JESUS ANTONIO PA-C Location:[facility] Appointment Type:URO Office Visit [facility] Evaluation + Plan note Future Appointments Appointment Date:10/07/2024 09:00:00 AM Scheduled Provider:MARIA DE JESUS ANTONIO PA-C Location:[facility] Appointment Type:URO Office Visit [facility] Evaluation + Plan note Future Appointments Appointment Date:10/07/2024 09:00:00 AM Scheduled Provider:MARIA DE JESUS ANTONIO PA-C Location:[facility] Appointment Type:URO Office Visit Diagnostic Tests PendingUrine Culture 10/02/23 [facility] Evaluation + Plan note Future Appointments Appointment Date:01/23/2024 10:00:00 AM Scheduled Provider: Location:.[place]ICAL [place] Appointment Type:PT Pelvic Floor/UI Eval () Appointment Date:07/23/2024 08:45:00 AM Scheduled Provider:Arelis Yip MD Location:[facility] Appointment Type:URO Office Visit [facility] Evaluation + Plan note Future Appointments Appointment Date:07/23/2024 08:45:00 AM Scheduled Provider:Arelis Yip MD Location:[facility] Appointment Type:URO Office Visit [facility] Hospital Discharge instructions No data available for this section [facility] Progress note No data available for this section [facility] [employer] Reason for Referral Status Reason Specialty Diagnoses / Procedures Referred By Contact Referred To Contact New 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 Procedures CT CHEST WITH CONTRAST ME CAT SCAN OF CHEST CONTRAST Hernesto Haque II, MD [address] [place] [address] Status Reason Specialty Diagnoses / Procedures Referred By Contact Referred To Contact New 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 Tuberculosis: no 37. Vasculitis: no 38. TIN CUTTER/OB: no 40. Obesity: yes 41. Sleep apnea: [...] as yet. Her mother reports that her rope cleaner wants toput her on hormone replacement therapy. [...] potentially adverse cardiovascular effects, however he patient's rope cleaner deems this to be necessary at this time. She will need to be watched closely. She is to return fora follow-up visit in 5 months. * Kelly Brooksh - 10/04/2018 8:20 AM EST Chief Complaint 1 month follow-up Umanzor Syndrome, FE HPI Keyona Atkins is a 18 y.o. female [facility] a [facility] [...] no documented in this encounter* Lashae Hastings, STEVEN - 09/14/2018 6:34 PM EST [facility] [...] failed tympanoplasty approximately 2 years ago in [place]. 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 Procedures CT CHEST WITH CONTRAST ME CAT SCAN OF CHEST CONTRAST Hernesto Haque II, MD [address] [place] [address] Reason Comments Follow-up Reason Comments Referral Reason Comments Follow-up 1 month follow-up Tu rner Syndrome, FE Reason Comments Medication Refill INFORMATION SOURCE (unrecogn ized section and content) DATE CREATED AUTHOR 09/14/2018 [facility] DATE CREATED AUTHOR AUTHOR'S ORGANIZ ATION 04/28/2019 [facility] DATE CREATED AUTHOR AUTHOR'S ORGANIZ ATION 05/25/2019 [facility] DATE CREATED AUTHOR AUTHOR'S ORGANIZ ATION 05/25/2019 [facility] DATE CREATED AUTHOR AUTHOR'S ORGANIZ ATION 08/15/2019 [facility] DATE CREATED AUTHOR AUTHOR'S ORGANIZ ATION 04/08/2020 [facility] DATE CREATED AUTHOR AUTHOR'S ORGANIZ ATION 11/18/2022 [facility] DATE CREATED AUTHOR AUTHOR'S ORGANIZ ATION 12/20/2023 [facility] DATE CREATED AUTHOR AUTHOR'S ORGANIZ ATION 12/26/2024 [facility] Patient Care team informatio n (unrecognized section and content) Personnel Name: Ilia Cobb DO Address: Address: [address] [place] [address] Personnel Name: Ilia Cobb DO Address: Address: [address] [place] [address] Personnel Name: Ilia Cobb DO Address: Address: [address] [place] [address] Personnel Name: ILIA COBB DO Address: Address: [address] [place] [address] Personnel Name: MIKAELA MARCH CNP Address: Address: [place] [address] Personnel Name: MIKAELA MARCH CNP Address: Address: [address] [place] [address] Personnel Name: NONE, XXXX Address: Address: [facility] Personnel Name: NONE, XXXX Address: Address: [facility] FOR RECORDS PERTAINING TO PATIENTS WHO [...] BE BASED ON THE PRIMARY CLINICAL RECORDS. [facility] [employer] [facility]. provides no warranty or guarantee of the accuracy or completeness of information in this document.
[2024-12-29 14:31] LABS: Calcium 10.2 mg/dL (8.5-10.1); Carbon Dioxide 25.9 mmol/L (21.0-32.0); Chloride 108 mmol/L (98-107); Estimated GFR (African America >60 (>=60 mL/min/1.73m^2); Estimated GFR (Non-African Ame >60 (>=60 mL/min/1.73m^2); Sodium 143 mmol/L (136-145); Uric Acid 6.6 mg/dL (2.6-6.0)
[2024-12-29 15:13] LABS: Calcium Urine Random <5.0 mg/dL (5.1-21.0); Creatinine Urine Random 13.09 mg/dL (20.00-300.00); Sodium Urine Random 24 mmol/L (30-90)
[2024-12-29 15:15] LABS: Calcium 24 Hour Urine 131.2 mg/24hr (100.0-300.0); Creatinine 24 Hour Urine 343.61 mg/24 hr (800.00-1800.00); Sodium 24 Hour Urine 63 mmol/24h (40-220); Total Volume 24 Hour Urine 2625 mL/24hr
[2024-12-29 16:14] LABS: BOX Test Reference Lab CLEVELAND CLINIC; BOX Test Sent Out OXALATE, 24 HR URINE
[2024-12-30 09:09] LABS: PTH, Intact 96 pg/mL (15-65)
[2024-12-30 13:08] LABS: Uric Acid, Urine 10.5 mg/dL (Not Estab.); Uric Acid,Urine 24hr 275.6 mg/24 hr (173.7-902.1)
[2024-12-30 14:08] LABS: Magnesium, U 2.5 mg/dL (Not Estab.); Magnesium,Urine 24hr 65.6 mg/24 hr (12.0-293.0); Phosphorus, Urine 13.4 mg/dL (Not Estab.); Phosphorus,Urine 24h 352 mg/24 hr (261-1078)
== END 2024-12-29 13:25 | disposition home or self-care (01) ==
LOC: LAB 13:24
PROVIDERS: Visit Provider Urology
DX: N20.0 Calculus of kidney (principal)
CPT/HCPCS: 36415; 82310; 82340; 82374; 82435; 82507; 82565; 82570; 83735; 83945; 83970; 84100; 84105; 84295; 84300; 84520; 84550; 84560

== ENCOUNTER 2025-01-13 10:12 | Outpatient (OUT) | payer OTHER, SELFPAY ==
--- NOTE | 2025-01-13 10:14 | US_ITS ---
The [address] [address] Patient Name: RICARDO ATKINS MRN: [id number] date: 2000 Sex: F Assigned Patient Location: US Current Patient Location: US Accession/Order Number: [id number] Exam Date: 01/13/2025 12:24 Report Date: 01/13/2025 12:34 At the request of: EMILIA FISCHER MD Procedure: US renal BI BILATERAL RENAL AND BLADDER ULTRASOUND CLINICAL HISTORY: Kidney Stone COMPARISON: 07/29/2024 Estimation of renal size is approximately 10.5 cm on the right and 11.8 cm on the left. A 6 mm echogenic focus is present at the corticomedullary junction of the lower pole of left kidney that may be a stone. No hydronephrosis is identified. There is an exophytic cyst at the superior pole on the left measuring 15 x 18 x 18 mm.. There is no perinephric fluid. The urinary bladder is partially distended with a volume of 339 mL ml. No contour or intraluminal abnormalities are seen. US/US renal BI IMPRESSION: LEFT NEPHROLITHIASIS AND CYST. NO OBSTRUCTIVE UROPATHY. Impression dictated by: Sharmin Martell M.D. 01/13/2025 12:34 PM Dictation Location: [place] [address] Electronically authenticated by: [id number] Y Date: 01/13/2025 12:34
--- NOTE | 2025-01-13 10:42 | XR_ITS ---
The [address] [address] Patient Name: RICARDO ATKINS MRN: [id number] date: 2000 Sex: F Assigned Patient Location: US Current Patient Location: US Accession/Order Number: [id number] Exam Date: 01/13/2025 12:34 Report Date: 01/13/2025 12:35 At the request of: EMILIA FISCHER MD Procedure: XR abdomen 1V SINGLE VIEW ABDOMEN CLINICAL DATA: History of kidney stone. COMPARISON: 07/29/2024 Supine view of the abdomen and pelvis was obtained. There is air and stool within the colon. There is no dilated small bowel. The kidneys are partially obscured. No obvious radiopaque renal or ureteral stones are noted. No soft tissue masses are seen. There is subtle thoracolumbar dextroscoliotic curvature. XR/XR abdomen 1V IMPRESSION: NO RADIOPAQUE STONES WITHIN LIMITS OF BOWEL GAS AND STOOL. Impression dictated by: Sharmin Martell M.D. 01/13/2025 12:35 PM Dictation Location: [place] [address] Electronically authenticated by: [id number] Y Date: 01/13/2025 12:35
== END 2025-01-13 10:13 | disposition home or self-care (01) ==
LOC: US 10:12
PROVIDERS: Visit Provider Urology
DX: N20.0 Calculus of kidney (principal)
CPT/HCPCS: 74018; 76775

== ENCOUNTER 2025-07-06 09:09 | Outpatient (OUT) | payer OTHER, SELFPAY ==
--- NOTE | 2025-07-06 09:11 | XR_ITS ---
The [address] [address] Patient Name: RICARDO ATKINS MRN: [id number] date: 2000 Sex: F Assigned Patient Location: US Current Patient Location: US Accession/Order Number: [id number] Exam Date: 07/06/2025 10:20 Report Date: 07/06/2025 10:58 At the request of: EMILIA FISCHER MD Procedure: XR abdomen 1V SINGLE VIEW ABDOMEN CLINICAL DATA: Follow-up kidney stones COMPARISON: 01/13/2025 and ultrasound 07/06/2025 Supine view of the abdomen and pelvis was obtained. There is air and stool within the colon. No dilated small bowel loops are visualized. The kidneys are partially obscured. No obvious radiopaque renal or ureteral stones are visualized. No soft tissue masses are seen. The bony structures are intact. XR/XR abdomen 1V IMPRESSION: NO EVIDENCE OF RADIOPAQUE STONES. Impression dictated by: Sharmin Martell M.D. 07/06/2025 10:58 AM Dictation Location: [place] [address] Electronically authenticated by: [id number] Y Date: 07/06/2025 10:58
--- NOTE | 2025-07-06 09:12 | US_ITS ---
The [address] [address] Patient Name: RICARDO ATKINS MRN: [id number] date: 2000 Sex: F Assigned Patient Location: [place] Current Patient Location: [place] Accession/Order Number: [id number] Exam Date: 07/06/2025 09:15 Report Date: 07/06/2025 10:29 At the request of: EMILIA FISCHER MD Procedure: US renal BI BILATERAL RENAL AND BLADDER ULTRASOUND CLINICAL HISTORY: Follow-up kidney stones COMPARISON: 01/13/2025 Estimation of renal size is approximately 11.3 cm on the right and 12.2 cm on the left. An echogenic focus with twinkle artifact is seen at the inferior pole on the left measuring 3 mm. This may be a stone. No hydronephrosis is noted. No renal mass lesions were imaged. There is no perinephric fluid. The urinary bladder is partially distended with a volume of 234 mL. No contour or intraluminal abnormalities are seen. US/US renal BI IMPRESSION: SUSPECTED LEFT NEPHROLITHIASIS. NO OBSTRUCTIVE UROPATHY. Impression dictated by: Sharmin Martell M.D. 07/06/2025 10:29 AM Dictation Location: [place] [address] Electronically authenticated by: [id number] Y Date: 07/06/2025 10:29
--- OUTSIDE RECORDS SUMMARY | 2025-07-06 09:12 | XMS_ITS | Clinical Summary ---
Author Organization [facility] Address [address] [place] [address] Care Team Providers Care Computerized Mill Mill Recorder Name Role Phone Ilia Garcia Primary Care Provider [phone] Allergies No known active allergies Medications MedicationSigDispense QuantityRefillsLast FilledStart DateEnd DateStatus albuterol HFA 90 mcg/actuation inhalation inhaler Inhale 1 puff(s) by mouth every 6 hours as needed for Wheezing.Active enalapril (VASOTEC) 5 mg oral tablet Take 5 mg by mouth twice daily.Active melatonin 3 mg oral tablet Take 6 mg by mouth nightly as needed for Insomnia.Active metoPROLOL succinate (TOPROL XL) 25 mg oral extended release tablet Take 0.5 mg by mouth once daily.Active montelukast (SINGULAIR) 10 mg oral tablet Take 10 mg by mouth once daily.Active sertraline (ZOLOFT) 50 mg oral tablet Take 50 mg by mouth once daily.Active ergocalciferol, vitamin D2, (VITAMIN D ORAL) Take 2,000 units by mouth.Active estradioL 0.025 mg/24 hr semiweekly transdermal patch (Vivelle-Dot) Indications:White syndrome,Delayed pubertyApply 3/4 patch, changing Sunday and . 24 Patch Active levothyroxine 88 mcg tablet (Synthroid) Indications:Hypothyroidism due to Silvano's thyroiditisTake 1 tablet by mouth once daily. 30 tablet Active Active Problems ProblemNoted DateDiagnosed DateHypothyroidism due to Silvano's thyroiditis 01/29/20206227Zjebjkcgutmx41/18/2020BMI 40.0-44.9, adult01/29/2020Aortic arch nhihpnk9901/29/2020Turner sfrcakkt19/17/2020 Family History Medical HistoryRelationCommentsNo Known ProblemsMaternal GrandfatherCancer Maternal GrandmotherNo Known ProblemsNatural MotherRelationStatusComments Maternal GrandfatherAliveMaternal GrandmotherDeceasedNatural MotherAlive Social History Tobacco UseTypesPacks/DayYears UsedDateSmoking Tobacco: Passive Smoke Exposure - Never SmokerSmokeless Tobacco: Never Tobacco Cessation:Counseling Given: No Alcohol UseStandard Drinks/WeekCommentsNo0 (1 standard drink = 0.6 oz pure alcohol)CommentsUnknownSex and Gender InformationValueDate RecordedSex Assigned at BirthNot on fileLegal XcuSmygav09/24/2019 11:56 AM ESTGender IdentityNot on fileSexual OrientationNot on file Last Filed Vital Signs Vital SignReadingTime TakenCommentsBlood Hhhvrkow366/6402 7:51 AM EST Wvnum868909/23/2018 7:51 AM ESTTemperature--Respiratory Rate--Oxygen Saturation-- Inhaled Oxygen Concentration--Czmgll01.1 kg (200 lb 13.4 oz)01/29/2020 1:16 PM EDTverified with the pzOlgath928.2 cm (4' 10.35 )09/23/2018 7:51 AM SVO409.2cm, 148.2cmBody Mass Index-- Plan of Treatment Health MaintenanceDue DateLast DoneCommentsMMR Vaccine (1 of 1 - Standard series)2002DTaP/Tdap/Td Vaccine (1 - Tdap)2008Varicella Vaccine (1 of 2 - 13+ 2-dose series)2014HPV Vaccine (1 - 3-dose series)2016 Meningococcal B Vaccine (1 of 2 - Standard)2017Hepatitis B Vaccine (1 of 3 - 19+ 3-dose series)08/05/2020708984-RIGBYTKYGNNDIT D (WHITE SYNDROME)09/23/2020 09/23/2018, 06/22/2018FASTING BLOOD GLUCOSE (WHITE SYNDROME)03/15/2021 03/15/2020, 03/15/2020, 09/23/2018, Additional history existsGGT (WHITE SYNDROME)LIPIDS (WHITE SYNDROME), 09/23/2018, 06/22/2018LIVER PANEL (WHITE SYNDROME), 09/23/2018, 06/22/2018THYROID EVAL (WHITE SYNDROME), 03/15/2020, 09/23/2018, Additional history existsCOVID-19 Vaccine ( season)2025Influenza Vaccine (#1)2025ELIAC EVAL (WHITE SYNDROME) Clrrlsvah73/03/2020HIB VaccineAged OutNo longer eligible based on patient's age to complete this topicHepatitis A VaccineAged OutNo longer eligible based on patient's age to complete this topicIPV VaccineAged OutNo longer eligible based on patient's age to complete this topicMeningococcal ACWY VaccineAged OutNo longer eligible based on patient's age to complete this topicPneumococcal VaccineAged OutNo longer eligible based on patient's age to complete this topic RSV AntibodiesAged OutNo longer eligible based on patient's age to complete this topicRotavirus VaccineAged OutNo longer eligible based on patient's age to complete this topic Procedures Procedure NamePriorityDate/TimeAssociated UhhriiogjUqhxlvvcPTFVNaralob58/03/2020 8:53 AM EDT White syndrome HEMOGLOBIN N0UXsgjbkx65/03/2020 8:53 AM EDT White syndrome LIPID AYUZSTWDyeybqk09/03/2020 8:53 AM EDT White syndrome TISSUE TRANSGLUTAMINASE AB KNPYxfkowv34/03/2020 8:53 AM EDT White syndrome FREE R1Iejladh40/03/2020 8:53 AM EDT White 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 HEPATIC FUNCTION UEDXVRmnbtep36/03/2020 8:53 AM EDT White syndrome VITAMIN D 25 FIODAFVSjriamw15/11/2019 10:26 AM EST White syndrome from Last 3 Months or Most Recently Relevant to Health Maintenance Results * (ABNORMAL) TISSUE TRANSGLUTAMINASE AB IGA (03/15/2020 8:53 AM EDT)Component ValueRef RangeTest MethodAnalysis TimePerformed AtPathologist SignatureTISSUE TRANSGLUTAMINASE - External<1(EXTERNAL)0 - 14 u/mlEXTERNAL LABSpecimen (Source)Anatomical Location / LateralityCollection Method / VolumeCollection TimeReceived TimeBlood (Blood)03/15/2020 8:53 AM EDT Narrative Authorizing ProviderResult TypeResult StatusKindred Hospital At RahwayPilo NUNON IMMUNOLOGY/SEROLOGY ORDERABLESFinal ResultPerforming OrganizationAddress City/State/ZIP CodePhone Number EXTERNAL LAB * (ABNORMAL) LIPID PROFILE (03/15/2020 8:53 AM EDT)ComponentValueRef RangeTest MethodAnalysis TimePerformed AtPathologist SignatureHOURS FASTINGEXTERNAL LAB MSTBFFDLUSFBI905(EXTERNAL)0 - 149 mg/dLEXTERNAL LABHDL-IIBVLBYUZMY38(EXTERNAL) 40 - 45 mg/dLEXTERNAL LABLDL-ILIIEMNSKGD423(EXTERNAL)0 - 109 mg/dlEXTERNAL LAB VLDL-WVVTOCNYBOQ74(EXTERNAL)0 - 40 mg/dlEXTERNAL JZGQVDCYNLMVWG947(EXTERNAL)0 - 199 mg/dLEXTERNAL LABSpecimen (Source)Anatomical Location / Laterality Collection Method / VolumeCollection TimeReceived TimeBlood (Blood)03/15/2020 8:53 AM EDT Narrative Authorizing ProviderResult TypeResult StatusOlesya Hoff APNCHEMISTRY ORDERABLESEdited Result - FinalPerforming OrganizationAddressCity/State/ZIP Code Phone Number EXTERNAL LAB * (ABNORMAL) Hepatic Function Panel (Alb/Bili/Alk Phos/AST/ALT/Total Prot) (03/15/2020 8:53 AM EDT)ComponentValueRef RangeTest MethodAnalysis Time Performed AtPathologist SignatureALBUMIN4.1(EXTERNAL)3.4 - 5 g/dlEXTERNAL LAB AST24(EXTERNAL)9 - 39 u/lEXTERNAL VXHRAK45(EXTERNAL)7 - 45 u/lEXTERNAL LAB ALKALINE FZEBFTEFSIZ452(EXTERNAL)33 - 110 u/lEXTERNAL LABBILIRUBIN, TOTAL0.4 (EXTERNAL)0 - 1.2 mg/dlEXTERNAL LABDIRECT BILIRUBIN0.1(EXTERNAL)0 - 0.3 mg/dl EXTERNAL LABINDIRECT BILIRUBIN(EXTERNAL)EXTERNAL LABTOTAL PROTEIN6.9(EXTERNAL) 6.4 - 8.2 g/dlEXTERNAL LABSpecimen (Source)Anatomical Location / Laterality Collection Method / VolumeCollection TimeReceived TimeBlood (Blood)03/15/2020 8:53 AM EDT Narrative Authorizing ProviderResult TypeResult StatusSelect [facility] APNCHEMISTRY ORDERABLESFinal ResultPerforming OrganizationAddressDelaware County Hospital/State/ZIP CodePhone Number EXTERNAL LAB * (ABNORMAL) HEMOGLOBIN A1C (03/15/2020 8:53 AM EDT)ComponentValueRef RangeTest MethodAnalysis TimePerformed AtPathologist SignatureHEMOGLOBIN A1C5.3 (EXTERNAL)<5.6 %EXTERNAL LABSpecimen (Source)Anatomical Location / Laterality Collection Method / VolumeCollection TimeReceived TimeBlood (Blood)03/15/2020 8:53 AM EDT Narrative Authorizing ProviderResult TypeResult [facility] SOCIAL WORK PROGRAM COORDINATOR METABOLIC/ENDOCRINE ORDERABLESFinal ResultPerforming OrganizationAddress City/State/ZIP CodePhone Number EXTERNAL LAB * (ABNORMAL) GGTP (03/15/2020 8:53 AM EDT)ComponentValueRef RangeTest Method Analysis TimePerformed AtPathologist XyunmoutpYLL71(EXTERNAL)5 - 55 u/l EXTERNAL LABSpecimen (Source)Anatomical Location / LateralityCollection Method / VolumeCollection TimeReceived TimeBlood (Blood)03/15/2020 8:53 AM EDT Narrative Authorizing ProviderResult TypeResult StatusSelect Specialty Hospital APNCHEMISTRY ORDERABLESFinal ResultPerforming OrganizationAddressty/State/ZIP CodePhone Number EXTERNAL LAB * (ABNORMAL) FREE T4 (03/15/2020 8:53 AM EDT)ComponentValueRef RangeTest Method Analysis TimePerformed AtPathologist SignatureFree T4 - External0.8(EXTERNAL) 0.61 - 1.12 ng/dlEXTERNAL LABSpecimen (Source)Anatomical Location / Laterality Collection Method / VolumeCollection TimeReceived TimeBlood (Blood)03/15/2020 8:53 AM EDT Narrative Authorizing ProviderResult TypeResult StatusOlesya Hoff SOCIAL WORK PROGRAM COORDINATOR METABOLIC/ENDOCRINE ORDERABLESFinal ResultPerforming OrganizationAddress City/State/ZIP CodePhone Number EXTERNAL LAB * (ABNORMAL) VITAMIN D 25 HYDROXY (09/23/2018 10:26 AM EST)ComponentValueRef RangeTest MethodAnalysis TimePerformed AtPathologist SignatureVITAMIN D 25 JKSWQRA11(L)30 - 120 ng/mL09/23/2018 11:46 AM ESTCHI LABComment: (NOTE) <20 considered deficient. 21-29 considered insufficient. Reference ranges are based on Endocrine Society criteria. Specimen (Source)Anatomical Location / LateralityCollection Method / Volume Collection TimeReceived TimeSerum (Blood)09/23/2018 10:26 AM EST09/23/2018 10:43 AM EST Narrative Authorizing ProviderResult TypeResult StatusDickson Mack MDCHEMISTRY ORDERABLESFinal ResultPerforming OrganizationAddressCity/State/ZIP CodePhone Number [facility] [address] [place] [address], from Last 3 Months or Most Recently Relevant to Health Maintenance Insurance * Guarantor: Marely ANDRADE TypeRelation to PatientDate of BirthPhone Billing AddressPersonal/TkqxcdShrfso84/06/1974 [address] [phone] * Guarantor: Jonathon Andrade TypeRelation to PatientDate of BirthPhoneBilling AddressPersonal/YydskeWxdv2000 [address] [place] [address] Care Teams Team MemberRelationshipSpecialtyStart DateEnd Ilia Garcia [address] [place] [address] [facility] Xxzvmquy99/[facility]/19
--- OUTSIDE RECORDS SUMMARY | 2025-07-06 09:12 | XMS_ITS | Clinical Summary ---
Author Organization [facility] Address [address] [place] [address] Care Team Providers Care Adapted Physical Education Teacher Name Role Phone Unallocated, Noms Provider Primary Care Provi patricia Medications MedicationSigDispense QuantityRefillsLast FilledStart DateEnd DateStatus cholecalciferol (Vitamin D-3) 25 MCG (1000 UT) capsule Take 2 capsules by mouth DailyActive enalapril (Vasotec) 5 MG tablet Take 1 tablet by mouth in the morning and 1 tablet before bedtime.Active Melatonin 3 MG tablet dispersible Take 2 tablets by mouth at bedtimeActive metoprolol succinate XL (Toprol-XL) 25 MG 24 hr tablet Take 0.5 mg by mouth in the morning.Active montelukast (Singulair) 10 MG tablet Take 1 tablet by mouth at bedtimeActive sertraline (Zoloft) 50 MG tablet Take 1 tablet by mouth DailyActive loratadine (Claritin) 10 MG tablet Take 1 tablet by mouth DailyActive levothyroxine (Synthroid, Levoxyl) 50 MCG tablet Indications:Hypothyroidism, unspecified typeTAKE 1 TABLET BY MOUTH IN THE MORNING BEFORE MEALS 90 tablet 5Active levothyroxine (Synthroid, Levoxyl) 50 MCG tablet Indications:Hypothyroidism, unspecified typeTAKE 1 TABLET BY MOUTH IN THE MORNING BEFORE MEALS 90 tablet Discontinued Encounters DateTypeDepartmentCare LueiQebbikduvtp63/16/2025Refill YOLANDE [facility] [address] [place] [address] Barak Mabry MD Hypothyroidism, unspecified typefrom Last 3 Months Immunizations ImmunizationAdministration DatesNext BwgKGxR1403/22/2006,05/28/2003DTaP, Ztalictbnek69/01/2002,2001,2001HPV 9-Mkpqvy0211/07/2019,07/09/2019, 05/06/2019Hep A, ped/adol, 2 dose04/29/2019,09/05/2013HiB, eriklxilhji95/01/2002 Hib / Hep B10,2001,2001IPV03/22/2006,02/10/2002,2001, 2001Influenza Whole07/20/2004Influenza, High Dose Seasonal, Preservative Free05/22/2019Influenza, injectable, quadrivalent, preservative free04/10/2019 Influenza, seasonal, irpswilxob02/17/3606BFP4503/22/2006,05/28/2003Meningococcal SLM0G7204/29/2019Meningococcal XMC3J7109/05/2013PPD Test05/06/2019,04/29/2019 Pneumococcal Conjugate PCV 7012/09/2001,2001Tdap09/05/2013 Family History Medical HistoryRelationNameCommentsHypertensionMotherMigrainesMotherRelationName StatusCommentsFatherAliveMotherAlive Social History Tobacco UseTypesPacks/DayYears UsedDateSmoking Tobacco: Never Tobacco Cessation:Counseling Given: Not Answered CommentsUnknownSex and Gender InformationValueDate RecordedSex Assigned at BirthNot on fileLegal QjuBbkqzn35/15/2023 6:50 PM EDTGender IdentityNot on fileSexual OrientationNot on file Last Filed Vital Signs Vital SignReadingTime TakenCommentsBlood Ofbmydot720/8311 12:00 PM EST Rudsk062704/15/2024 9:39 AM EDTTemperature--Respiratory Zmpk860004/15/2024 9:39 AM EDTOxygen Nitskmdidg92%04/15/2024 9:39 AM EDTInhaled Oxygen Concentration-- Jzeffi673 kg (227 lb)04/15/2024 9:39 AM SVIJwqlro399.3 cm (4' 10 )04/15/2024 9:39 AM EDTBody Mass Index47.440910/2023 9:39 AM EDT Plan of Treatment Health MaintenanceDue DateLast DoneCommentsPneumococcal Vaccine: Pediatrics (0 to 5 Years) and At-Risk Patients (6 to 64 Years) (1 of 2 - PCV)2020 2001, 2001COVID-19 Vaccine (3 - season)/, 03/11/2021Influenza Vaccine (#1), 04/10/2019, 07/20/2004, Additional history exists Insurance Care Teams Team MemberRelationshipSpecialtyStart DateEnd Date Unallocated, Noms Provider, [address] [place], [place] [id number] PCP - GeneralFamily Medicine04/30/24
--- OUTSIDE RECORDS SUMMARY | 2025-07-06 09:12 | XMS_ITS | Clinical Summary ---
Author Organization [employer] [facility] tem Address [id number] [address] 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 MedicationSigDispense QuantityRefillsLast FilledStart DateEnd DateStatus enalapril (VASOTEC) 5 mg tablet take 1 tablet by mouth twice a day 60 tablet 11001/20/2018Active Active Problems ProblemNoted DateDiagnosed DateGeneralized anxiety nihrsvij69/16/2018 Social History Tobacco UseTypesPacks/DayYears UsedDateSmoking Tobacco: Never AssessedChildcare AnswerDate WonijlzrPwsemoscxXpyfhfk86/12/2019EmploymentAnswerDate Recorded EaqysxkflyEfnufjj74/12/2019Purpose - LifeAnswerDate RecordedPurpose and direction in onemBafoyoi20/22/2021CommentsUnknownSex and Gender InformationValueDate RecordedSex Assigned at BirthNot on fileLegal SexFemale 03/18/2015 11:59 AM EDTGender IdentityNot on fileSexual OrientationNot on file Last Filed Vital Signs Vital SignReadingTime TakenCommentsBlood Rskvpegt779/7605 10:21 AM EDT Rticn468612/26/2017 10:21 AM EDTTemperature--Respiratory Rate--Oxygen Saturation-- Inhaled Oxygen Concentration--Ywrltz45.5 kg (204 lb)12/26/2017 10:21 AM EDT Chhpjf590 cm (4' 8.3 )01/25/2016 12:53 PM EDTBody Mass Index-- Plan of Treatment Health MaintenanceDue DateLast DoneCommentsDepression Mfxfirchp99/24/2013Tobacco Vbtedludu90/24/2013dult BMI Ivbbtysxn34/24/2019DTaP,Tdap and Td Vaccines (1 - Tdap)2020Pap Smear2022Influenza Jfnkuky9904/13/2025 Medical Devices Not on file Insurance Care Teams Team MemberRelationshipSpecialtyStart DateEnd Ilia Garcia DO PCP - [facility]11/14/17
--- OUTSIDE RECORDS SUMMARY | 2025-07-06 09:12 | XMS_ITS | Encounter Summary ---
Author Organization [facility] Address [address] [place] [address] Care Team Providers Care Accounts Payable Professional Name Role Phone Unallocated, Noms Provider Primary Care Provi patricia Reason for Visit * ReasonCommentsMed Refill Encounter Details DateTypeDepartmentCare Team (Latest Contact Info)Fdnkbgjlouv56/16/2025Refill YOLANDE [facility] [address] [place] [address] Barak Mabry MD [address] [place] [address] Hypothyroidism, unspecified type Social History Tobacco UseTypesPacks/DayYears UsedDateSmoking Tobacco: NeverComments UnknownSex and Gender InformationValueDate RecordedSex Assigned at BirthNot on fileLegal ScaJcuzww37/15/2023 6:50 PM EDTGender IdentityNot on fileSexual OrientationNot on filedocumented as of this encounter Miscellaneous Notes * Telephone Encounter - Moraima Caputo LPN - 06/29/2025 8:18 AM EST MEDICATION SENT TO PHARMACY. documented in this encounter Plan of Treatment Not on file documented as of this encounter Visit Diagnoses Diagnosis Hypothyroidism, unspecified type documented in this encounter Care Teams Team MemberRelationshipSpecialtyStart DateEnd Date Unallocated, Noms MD Yonis [address] [place] [address] PCP - GeneralFamily Medicine04/30/24documented as of this encounter
--- OUTSIDE RECORDS SUMMARY | 2025-07-06 09:12 | XMS_ITS | Clinical Summary ---
Author Organization [facility] Address [address], [address] [place] [address] Care Team Providers Care Dispatcher Automobile Rental Name Role Phone Jose, Ilia Begum Primary Care Provider [phone] Allergies No known active allergies Medications MedicationSigDispense QuantityRefillsLast FilledStart DateEnd DateStatus Somatropin (NORDITROPIN FLEXPRO) 15 MG/1.5ML SOLN Inject 5 mg into the skin Six times weekly.Active sertraline (ZOLOFT) 25 MG tablet 50 mg qkuiano4110/27/2013ctive melatonin 3 MG TABS tablet Take 6 mg by mouth nightly.Active enalapril (VASOTEC) 5 MG tablet 2 times daily.12/23/2013ctive fluticasone (FLONASE) 50 MCG/ACT nasal spray 11/24/2013ctive polyethylene glycol (GLYCOLAX) powder Take 17 g by mouth 2 times daily. 1 Bottle 5003/30/2014ctive nystatin-triamcinolone (MYCOLOG II) cream Apply topically 2 times daily. 1 Tube ctive methimazole (TAPAZOLE) 5 MG tablet 03/24/2015ctive fenofibrate 160 MG tablet 03/24/2015ctive albuterol (PROAIR HFA) 108 (90 BASE) MCG/ACT inhaler Inhale 2 puffs into the lungs every 6 hours as needed for Wheezing 2 Inhaler ctive albuterol sulfate HFA (PROAIR HFA) 108 (90 BASE) MCG/ACT inhaler Inhale 2 puffs into the lungs every 6 hours as needed for Wheezing 2 Inhaler Active gabapentin (NEURONTIN) 100 MG capsule Take 1 capsule by mouth daily 90 capsule Active montelukast (SINGULAIR) 10 MG tablet take 1 tablet by mouth once daily 90 tablet Active Active Problems Patient Care Coordination No te Formatting of this note migh t be different from the original. We should repeat Vitamin D levels at the next visit, Per Dr. Escalona. Vitamin D 800 IU ordered today OTC. 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 Pqpbhksdsscymz69/22/2014Vaginal fuoxgqt1701/01/2014Incontinence of urine01/01/2014 Encopresis with constipation and overflow vrojakojdzpb45/15/2014Growth hormone zgidvrdwwz55/15/2014Recurrent UTI11/25/2013llergic wxxvtsij78/16/2012 Zbyiavsnjxtz82/19/2012Obstructive sleep apnea01/30/2012Turners syndrome 10/27/2011Short syerscy0210/27/2011 Social History Tobacco UseTypesPacks/DayYears UsedDateSmoking Tobacco: Passive Smoke Exposure - Never SmokerCigarettesSmokeless Tobacco: Never Comments:Mom smokes Alcohol UseStandard Drinks/WeekCommentsNo0 (1 standard drink = 0.6 oz pure alcohol)CommentsNoSex and Gender InformationValueDate RecordedSex Assigned at BirthNot on fileLegal EngUhvtxq92/10/2013 6:30 PM ESTGender Identity Not on fileSexual OrientationNot on file Last Filed Vital Signs Vital SignReadingTime TakenCommentsBlood Omrogxod255/71011/03/2015 9:33 AM EDT Ertsv9847/23/2016 9:33 AM JSQIsricyzfgcr29.6 ??C (97.9 ??F)11/03/2015 9:33 AM EDTRespiratory Ndao221811/03/2015 9:33 AM EDTOxygen Vtdgcvonpz04%11/03/2015 9:33 AM EDTInhaled Oxygen Concentration--Lteyhk55.4 kg (175 lb)11/03/2015 9:33 AM EDT Xrzzvz670.5 cm (4' 8.5 )11/03/2015 9:33 AM EDTBody Mass Index38.54011/03/2015 9:33 AM EDT Plan of Treatment Not on file Insurance Advance Directives * Full Code (Latest Code Status on File) Date ActivatedDate InactivatedComments04/28/2014 12:58 PM04/29/2014 4:55 PM Care Teams Team MemberRelationshipSpecialtyStart DateEnd Date Jose, Ilia Begum DO [address] [facility] [place] [address] [facility]04/08/13
--- OUTSIDE RECORDS SUMMARY | 2025-07-06 09:12 | XMS_ITS | Clinical Summary ---
Author Organization [facility] Address [address] [place] [id number] Care Team Providers Care Box Closing Machine Operator Name Role Phone Unavailable Primary Care Provider Unavailabl e Social History Tobacco UseTypesPacks/DayYears UsedDateSmoking Tobacco: Never Assessed CommentsUnknownSex and Gender InformationValueDate RecordedSex Assigned at Not on fileLegal RzdKakrtr24/19/2025 11:46 PM EDTGender IdentityNot on file Sexual OrientationNot on file Plan of Treatment Not on file
--- OUTSIDE RECORDS SUMMARY | 2025-07-06 09:18 | XMS_ITS | CCD ---
Author Organization [facility] CliniSysc Care Team Providers Care School Bus Aide Name Role Phone Ilia Monson Unavailable ILIA [...] Unavailab alysa Monson, Ilia Primary Care Provider [phone] Ilia Cobb Primary Care Physician REZA, DR [...] MABRY Admitting Unavailable BARAK MABRY Attending Unavailable ABRAK MABRY Admitting Unavailable NONE, XXXX Primary Care Physician Unavailab Arelis Gonzalez Attending Unavailable MIKAELA MARCH Primary Care Unavailable DESTINEE ANTONIO Attending Unavailable Arelis Yip Attending Unavailable MIKAELA MARCH Primary Care Unavailable Arelis Yip Attending Unavailable Medications Current Medications MedicationDrug Class(es)DatesSig (Normalized)Sig (Original)200 actuat albuterol 0.09 mg/actuat metered dose inhaler (14 sources)beta2-Adrenergic AgonistStart: 84-14-9934mesv 1 puff(s) by inhalation every six hours as needed for wheezingalbuterol 108 (90 Base) MCG/ACT Aero Soln inhaler Indications: Environmental and seasonal allergiesInhale 1 puff every 6 hours as needed for Wheezing. 1 Inhaler 2 06/06/2018 ActiveStart: 80-55-6275nutbvdrvg 90 mcg/actuation inhaler Inhale 1 puff . 0 06/06/2018 Active Start: 48-50-6463ngwo 1 puff(s) by inhalation every six hours as needed for wheezingalbuterol 108 (90 Base) MCG/ACT Aero Soln inhaler Indications: Environmental and seasonal allergiesInhale 1 puff every 6 hours as needed for Wheezing. 1 Inhaler 2 06/06/2018 ActivebusPIRone hydrochloride 10 mg oral tablet (5 sources)Start: 51-77-7142hphYGKfku 10 mg Tab Refills(s) 0 Start Date: 10/02/23 Status: Ordered Repeat number: 1cholecalciferol 2000 unt oral tablet (12 sources)Vitamin DStart: 43-45-6530jpax 1 tablet by mouth once daily Cholecalciferol (VITAMIN D3) 2000 units Tab Indications: Vitamin D deficiency Take 1 tablet by mouth daily. 30 tablet 11 06/28/2018 Activeenalapril maleate 5 mg oral tablet (20 sources)Angiotensin Converting Enzyme InhibitorStart: 68-54-2481mccg 1 mg by mouth once dailyenalapril 5 mg Tab mg tab(s), Oral, Daily Start Date: 10/27/22 Status: Ordered Repeat number: 1Start: 10-75-7557qrfw 1 tablet by mouth twice dailyenalapril 5 MG Tab tablet Indications: Essential hypertension Take 1 tablet by mouth 2 times daily.180 tablet 1 06/06/2018 Activehydrocortisone 10 mg/ml / neomycin 3.5 mg/ml / polymyxin b 59897 unt/ml otic suspension (8 sources)Aminoglycoside Antibacterial, Polymyxin-class Antibacterial, CorticosteroidStart: 66-82-2112rpdgdpgm-polymyxin-hydrocortisone (CORTISPORIN) otic suspension Administer 4 drops into ears . 0 06/06/2018 ActiveStart: 08-99-1641weitxkha-polymyxin-hydrocortisone 3.5-44265-5 Suspension Indications: History of recurrent ear infection Place 4 drops in left ear 3 times daily. 1 Bottle 0 06/06/2018 Activelevothyroxine sodium 0.075 mg oral tablet (3 sources)l-Thyroxinetake 1 tablet by mouth once dailylevothyroxine 75 MCG Tab tablet Take 75 mcg by mouth daily. 0 Activeloratadine 10 mg oral tablet (10 sources)Start: 61-48-0044xack 1 mg by mouth once dailyloratadine 10 mg Tab mg tab(s), Oral, Daily Start Date: 10/27/22 Status: Ordered Repeat number: 1 Start: 06-20-2018 End: 86-81-6317nkvm 1 tablet by mouth once dailyloratadine (CLARITIN) 10 mg tablet Indications: Environmental allergies Take 1 (one) tablet (10 mg total) by mouth daily . 30 tablet 5 06/20/2018 06/20/2019 Activemelatonin 3 mg oral tablet (20 sources)Start: 35-77-7767tpes 1 tablet by mouth once daily at bedtime as neededmelatonin 3 mg Tab 3 mg = 1 tab(s), Oral, Once a day (at bedtime), PRN for insomnia, # 60 tab(s) Start Date: 10/27/22 Status: Ordered Quantity: 60.0 Unit: tab(s) Repeat number: 1take 6 mg by mouth at bedtimeMELATONIN PO Take 6 mg by mouth at bedtime. 0 Activemelatonin 1 mg Tab Take 6 mg by mouth . 0 Activetake 6 mg by mouth at bedtimeMELATONIN PO Take 6 mg by mouth at bedtime. Mwxtcx13 hr metoprolol succinate 25 mg extended release oral tablet (16 sources)beta-Adrenergic BlockerStart: 70-21-4776ojwl 1 mg by mouth once dailymetoprolol 25 mg ER Tab mg tab(s), Oral, Daily Start Date: 10/27/22 Status: Ordered Repeat number: 1Start: 90-55-0156qgcu 0.5 tablet by mouth once daily metoprolol succinate 25 MG tablet XL Indications: Essential hypertension , Tachycardia Take 0.5 tablets by mouth daily. 30 tablet 4 08/30/2018 ActiveStart: 99-90-7137nvax 1 tablet by mouth every twenty-four hoursmetoprolol succinate (TOPROL-XL) 25 MG 24 hr tablet Take 12.5 mg by mouth . 0 08/30/2018 Active mometasone furoate 1 mg/ml topical cream (5 sources)CorticosteroidStart: 09-27-2787pctxqckyzb Top 0.1% Crm 15 gram Refill(s) 0 Start Date: 10/02/23 Status: Ordered Repeat number: 1Start: 87-41-0109yjgwiqmqwz Top 0.1% Crm 15 gram Refill(s) 0 Start Date: 10/02/23 Status: Orderedmontelukast 10 mg oral tablet (20 sources)Leukotriene Receptor AntagonistStart: 29-22-4790ofos 1 mg by mouth once dailymontelukast 10 mg Tab mg tab(s), Oral, Daily Start Date: 10/27/22 Status: Ordered Repeat number: 1Start: 00-87-3104tkkb 1 tablet by mouth once dailymontelukast 10 MG Tab tablet Indications: Anxiety and depression , Environmental and seasonal allergies Take 1 tablet by mouth daily. 90 tablet 1 06/06/2018 Activemupirocin 0.02 mg/mg topical ointment (15 sources)RNA Synthetase Inhibitor AntibacterialStart: 09-12-2018 End: 21-09-4986kfcqlhgxq (BACTROBAN) 2 % ointment Indications: Abrasion of nose, initial encounter Apply 1 application topically daily Inside the left side of the nose three times a day for 10 days . 15 g 0 09/12/2018 09/22/2018 Active mupirocin 2 % Ointment ointment Apply 1 Application topically daily. 0 Active sertraline 50 mg oral tablet (20 sources)Serotonin Reuptake InhibitorStart: 16-57-8525whey 1 mg by mouth once dailysertraline 50 mg Tab mg tab(s), Oral, Daily Start Date: 10/27/22 Status: Ordered Repeat number: 1Start: 60-35-7204sano 1.5 tablets by mouth once daily sertraline 50 MG Tab tablet Indications: Anxiety and depression Take 1.5 tablets by mouth daily. 135 tablet 1 06/06/2018 ActiveStart: 58-95-3302wsvbzdnfur (ZOLOFT) 50 MG tablet Take 75 mg by mouth . 0 06/06/2018 ActiveVitamin D3 (9 sources)Start: 48-10-9619Tgptgzp D3 Start Date: 10/27/22 Status: Ordered Repeat number: 1Start: 34-58-5835Hsjcnss D3 Start Date: 10/27/22 Status: Ordered Zofran ODT 4 mg Tab-Dis (3 sources)Start: 97-08-0844uxmb 1 tablet by mouth every eight hours as needed for nauseaZofran ODT 4 mg Tab-Dis 4 mg = 1 tab(s), Oral, q8hr, PRN Nausea/Vomiting, # 12 tab(s), Refills(s) 0, Pharmacy: [id number], 148, cm, 10/27/22 9:59:00 EDT, Height/Length Dosing, 94.6, kg, 239:59:00 EDT, Weight Dosing Start Date: 11/13/22 Status: Ordered Completed/Discontinued Medications MedicationDrug Class(es)DatesSig (Normalized)Sig (Original)Iohexol (1 source)Radiographic Contrast AgentStart: 08-08-2018 End: 62-27-8804xccwepb (OMNIPAQUE) 350 MG/ML injection 75 mLSodium Chloride 0.9 % Ij Soln (1 source)Start: 08-08-2018 End: 62-86-0220auibga chloride (PF) 0.9% injection 70 mL Problems Active Problems Problem ClassificationProblemDateDocumented DateEpisodic/ChronicAbdominal pain (4 sources)Unspecified abdominal pain; Translations: [UNSPECIFIED ABDOMINAL PAIN]Onset: 62-39-6658PqhiarbqRearse (9 sources)Nvgowl36-15-3816YcsqtieSezuhhxy of urinary tract (20 sources)Kidney stone; Translations: [Calculus of kidney]Onset: 10-27-2022 EpisodicCardiac and circulatory congenital anomalies (7 sources)Congenital anomaly of aortic arch; 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]Onset: 408340-79-9033EbjzhzaBwrpzxc dysrhythmias (7 sources)Inappropriate sinus tachycardia; Translations: [Inappropriate sinus node tachycardia]Onset: 189599-51-4617VyqcplxUqmtdbt dysrhythmias (1 source)TachycardiaEpisodicDisorders of lipid metabolism (10 sources)Mixed hyperlipidemia; Translations: [Mixed hyperlipidemia]Onset: 892894-70-9387GyxodleNbyqmfzjh hypertension (11 sources)Benign essential hypertension; Translations: [Hypertensive disorder] Onset: 725295-23-2206JvtraraYagrgwkvpywwd symptoms and ill-defined conditions (5 sources)Urge incontinence; Translations: [Urge incontinence of urine]Onset: 05-54-8367JkelnwpFetyzznorexmp symptoms and ill-defined conditions (17 sources)Blood in urine; Translations: [Gross hematuria]Onset: 08-26-2022 EpisodicHeadache; including migraine (9 sources)Qosszojt42-17-1286OcuokrtlXtczofzdikw deficiencies (2 sources)Vitamin D deficiency; Translations: [Vitamin D deficiency]Chronic Other aftercare (1 source)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; Translations: [OTH SNF CURRENT DRUG THERAPY]Onset: 53-64-0786SkedzzohGzzew and ill-defined heart disease (9 sources)Heart ralncoh26-26-6792KhtousxQdznz congenital anomalies (10 sources)Umanzor syndrome; 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]Onset: 08-30-2018 51-12-0284HivmuhgAdoav congenital anomalies (1 source)Umanzor's syndrome, unspecified; Translations: [TURNERS SYNDROME UNSPECIFIED]Onset: 37-35-1168FrifzikMjvzm diseases of bladder and urethra (1 source)Unspecified urethral stricture, female; Translations: [UNSP URETHRAL STRICTURE FEMALE]Onset: 42-56-6555RicejprkFyazx diseases of kidney and ureters (4 sources)Acquired renal cyst without neoplastic change; Translations: [Cyst of kidney, acquired]Onset: 77-03-2518DuvawhkzGiqbm diseases of kidney and ureters (9 sources)Cyst of ydnudy55-58-6265DcbkeckfQnemv diseases of veins and lymphatics (1 source)Lymphedema; Translations: [Lymphedema]ChronicOther ear and sense organ disorders (9 sources)Hearing dnxb29-83-6205PvjzdspGldwd gastrointestinal disorders (1 source)Splenomegaly, not elsewhere classified; Translations: [SPLENOMEGALY NEC]Onset: 11-47-9708PoavjwpwLxisr injuries and conditions due to external causes (9 sources)Injury of ztxc96-26-9304YjeclwpkChuxl injuries and conditions due to external causes (1 source)Foreign body in bladder; Translations: [Foreign body in bladder, initial encounter]Onset: 45-83-7707XuvvgdgrJylun nervous system disorders (1 source)Other acute postprocedural pain; Translations: [OTHER ACUTE POSTPROCEDURAL PAIN]Onset: 98-50-1871AowhizagLbopr nutritional; endocrine; and metabolic disorders (14 sources)Morbid obesity; Translations: [Obesity, morbid, BMI 40.0-49.9]Onset: 866245-87-3643BouujjwYbgjr screening for suspected conditions (not mental disorders or infectious disease) (2 sources)Thyroid function tests abnormal; Translations: [Abnormal thyroid blood test]EpisodicPulmonary heart disease (7 sources)Pulmonary hypertension; Translations: [Chronic pulmonary hypertension]Onset: 834832-39-3548PunfxgqXeockhaw codes; unclassified (7 sources)Obstructive sleep apnea syndrome; Translations: [Obstructive sleep apnea]Onset: 201144-33-8528LxotvvzBldunigyrxqt (2 sources)Establish Care; Translations: [Establish Care]Onset: 06-06-2018 Urinary tract infections (1 source)Urinary tract infection, site not specified; Translations: [UTI SITE NOT SPECIFIED]Onset: 66-57-5061Ufnamhiq Past or Other Problems Problem ClassificationProblemDateDocumented DateEpisodic/ChronicOther ear and sense organ disorders (1 source)Excessive cerumen in ear canal ; Translations: [Excessive cerumen in left ear canal]EpisodicSuperficial injury; contusion (1 source)Abrasion of nose; Translations: [Abrasion of nose, initial encounter] EpisodicUnclassified (2 sources)Abnormality of aortic arch branchUnclassified (1 source)Lymphedema of right lower extremityUnclassified (1 source)Patient encounter status Results Test NameValueInterpretationReference RangeFacilityAmbulatory Visit Summaryon 50-48-3977Wrlbrxlfau Visit SummaryAmbulatory Visit Summary KEYONA ATKINS :2000 Visit Date:01/14/2025 Ambulatory Visit Instructions Your Diagnosis Kidney stone Urge incontinence Your Care Team Attending Physician - Phi [...] (11/08/2022), Urethral dilatation (11/08/2022), Tonsillectomy. Discharge Vitals Temperature (Oral) 36.5 ???C Heart Rate (Peripheral) 88 Respiratory Rate 16 Blood Pressure 126/80 Height 148 cm Height 58 in Weight 99.8 kg Weight 220.021 lb BMI 45.56 What to do next You Need to Schedule the Following Appointments [...] Head injury Heart disease Hypertension Kidney stone Morbid obesity with BMI of 45.0-49.9, adult Renal cyst Renal stone Urge incontinence Patient Survey You may receive a survey via text or e-mail asking about your office visit. Please share your experience with us by completing your survey. We appreciate your feedback and thank you for choosing us for your care. [facility] HospitalReminderson [phone] Reminders From: Kaylee Chauhan To: EU - Recalls Phi; Sent: 01/14/2025 12:14:23 EDT Show up: 06/16/2025 12:14:00 EST Subject: 6 Month RASHEEDA/KUB Due Date/Time: 07/16/2025 12:14:00 EST Reminder/Recall Per KML, patient to have RASHEEDA/KUB done in 6 months at [facility] due to kidney stone. Both images were ordered, will need to be faxed to [facility] and patient reminded to get the imaging done.[facility] HospitalUrology Office/Clinic Note on 22-61-4743Gmodcuw Office/Clinic NoteUrology Office/Clinic Note Chief Complaint 3 mth w/ metabiolic w/u and RASHEEDA & KUB HPI Staff 24yr old female pt here for 6mo f/u with metabolic work up, KUB, and RASHEEDA. Previous Dx: urge incontinence, kidney stone, renal cyst S/P Cystoscopic removal of ureteric stent (11/13/2022), Cystoscopic laser lithotripsy of ureteric calculus (11/08/2022), Urethral dilatation (11/08/2022) pt denies any urination issues History of Present Illness Tests reviewed: UA, metabolic workup, KUB, RASHEEDA I have reviewed the previous health record information and history for this patient from Dr. Yip. I have reviewed and verified the staff [...] HPI. Physical Exam Vitals & Measurements T: 36.5 ???C(Oral) HR: 88(Peripheral) RR: 16 BP: 126/80 HT: 148 cm HT: 58 in WT: 220.021 lb WT: 99.8 kg BMI: 45.56 General Appearance: alert, no distress, well nourished, well developed female. Assessment/Plan 24 yo female with history of stones and urge incontinence here for follow-up to review metabolic workup, KUB and RASHEEDA. Hx Umanzor's syndrome and Silvano's. Pt here with her mother today. UA shows trace leuks. Asx. BBS 5 (13). No urinary complaints. 1. Kidney stone (N20.0: Calculus of kidney) [...] provided PTH high w high urine Ca 6 mm LLP per RASHEEDA. KUB neg limited by stool. Metabolic workup 12/29/24 - PTH high 96. Ox improved to 216. Volume good 2.6 L. Citrate L 184. Uricacid improved 275. Reviewed imaging and metabolic workup with pt. Not a candidate for ESWL since stone not visible on xray. She is getting used to high fluid intake. Has Silvano's, used to see endocrinology (Dr Mabry) for this. Advised she consult with him regarding elevated PTH. Follow up 6 mos with RASHEEDA at [facility] or sooner if needed. Pt understands and agrees with plan. -Cont high fluid intake -Diet mods, add lemon/[place] for low citrate -Consult with Dr Mabry regarding elevated PTH Follow-up With When Contact Information Phi MTZ, Arelis Velazquez, URL, URO Additional Instructions: 6 mos with RASHEEDA at [facility] Patient Education Dietary Guidelines to Help Prevent Kidney Stones I, Teri Enciso, personally scribed for Dr. Yip on 01/14/2025 11:56:12. . Documentation recorded by the scribe, Teri Enciso, accurately reflects the services(s) I performed and decisions made by me. Authenticated by Dr. Yip on 01/14/2025 12:24:32. Problem List/Past Medical History Ongoing Asthma Deafness Gross hematuria Head ache Head injury Heart disease Hypertension Kidney stone Morbid obesity with BMI of 45.0-49.9, adult Renal cyst Renal stone Urge incontinence Historical No qualifying data Procedure/Surgical History Cystoscopic [...] D3 Allergies No Known Allergies Social History Alcohol Never., 07/22/2024 Substance Abuse Never., 07/22/2024 Tobacco Never (less than 100 in lifet (more content not included)...[facility] HospitalComment on above:Result Comment: Electronically Signed By: Arelis Yip MD\.br\Date and Time Signed: 01/14/25 12:24EDT\.br\Electronically Co- Signed By: Teri Enciso\.br\Date and Time Co-Signed: 01/14/25 11:56 EDT Reminderson [phone] From: Kaylee Chauhan To: EU - Recalls Lue; Sent: 07/23/2024 10:42:31 EST Show up: 07/23/2024 10:42:00 EST Subject: RASHEEDA/KUB @ [facility] Due Date/Time: 10/22/2024 10:42:00 EDT Reminder/Recall Per KML, patient to have RASHEEDA, KUB and Litholink done prior to f/u appointment on 10/22/24. RASHEEDA and KUB were ordered on 07/23/24, and patient would like to have the imaging done at [facility]. Please send orders prior to f/u appointment on 10/22/24. RASHEEDA and KUB done 07/29/24 results are in chart. pt. stated she sent litholink back on 09/30NoFulton County Health CenterReminderson [phone] Reminders From: Kari Muniz MA (EU - Recalls Lue) To: EU - Recalls Lue; Sent: 08/21/2024 12:34:34 EST Show up: 09/13/2024 12:33:00 EST Subject: RASHEEDA/KUB and litholink Reminder/Recall Addendum by Flavio SANDRA Kari Biswas on August 21, 2024 12:33:04 EST 10/22/24 follow up From: Bethany March To: EU - Recalls Lue; Sent: 07/23/2024 15:48:22 EST Subject: Labs and Imaging Due Date/Time: 10/21/2024 16:44:00 EDT Caller Name: KEYONA ATKINS; Caller Number: Quoc , M Pt is to get LithoLink, RASHEEDA, and KUB done prior to 3 mos f/u, pt prefers [facility]. RASHEEDA and KUB done 07/29/24 results are in chart. Spoke to patient she stated that she is going to complete 24hr urine this weekend.[facility] HospitalAmbulatory Visit Summaryon 07-23-2024 Ambulatory Visit SummaryAmbulatory Visit Summary KEYONA ATKINS :2000 Visit Date:07/23/2024 Ambulatory Visit Instructions Your Diagnosis Urge incontinence Kidney stone Renal cyst Tests Performed US Renal -- Results Pending -- XR Abdomen 1 View -- Results Pending -- Please visit your patient portal for your results or contact your primary care physician. Your Care Team Attending Physician - Arelis Yip MD Primary Care Physician - NONE, XXXX This [...] Follow-Up Appointments Sunday 9:45 AM EDT With: Arelis Yip MD Where: [facility] [address] [place] [address]- You Need to Schedule the Following Appointments Follow Up with Arelis Yip MD, URL, URO When: Where: Medications What How [...] muscles. These are the same muscles you squeezewhen you try to stop the flow of [...] your vaginal area. Keep your stomach, buttocks, andlegs relaxed. 2. Hold the muscles tight for up to 10 seconds. 3. Breathe normally. 4. Relax your muscles for up to 10 seconds. 5. Repeat as told by your health care provider. Repeat this exercise daily as (more content not included)...[facility] HospitalUrology Office/Clinic Noteon 07-68-0021Poqtxuu Office/Clinic Note Urology Office/Clinic Note Chief Complaint 6 mth f/u HPI Staff 23 yo female pt here today for a 6 mos f/u. Previous Dx:Urge Incontinence, Kidney Stone, and Renal Cyst No Urologic Meds Pt was previously referred to PFPT at [facility] at the time of her last OV. [...] of kidney) CT AP w/wo con 08/26/22 @[facility] - Nonobstructing LLP stone 7.5 mm. [...] All questions/concerns were discussed. Pt to call theoffice if she encounters any issues prior. Pt acknowledges understanding. -Will order LithoLink, serum labs, KUB & RASHEEDA. Pt prefers [facility]. -Inc fluids, dietary modifications 3. Renal cyst (N28.1: Cyst of kidney, acquired) CT AP w/wo con 08/26/22 @[facility] - An upper pole left simple renal cyst 1.7 cm. -Simple cyst does not require surveillance. Follow-up With When Contact Information Phi MTZ, Arelis Velazquez, URL, URO Additional Instructions: Patient Education Kegel Exercises I, Bethany March, personally scribed for Dr. Yip on 07/23/2024 09:47:12. . Documentation recorded by the Bethany viera (more content not included)... [facility] HospitalComment on above:Result Comment: Electronically Signed By: Arelis Yip MD\.br\Date and Time Signed: 07/23/24 09:50 EST\.br\Electronically Co-Signed By: Bethany March E\.br\Date and Time Co- Signed: 07/23/24 09:48 ESTNonvisit Note - PTon 57-39-7449Rtidkkmt Note - PTChart reviewed with eval prepped for scheduled eval. [facility] CenterURINALYSISOrdered By: Destinee Taveras on 92-80-8730Fdtmspsp LM Ql (Urine sed)1+ /HPFInvalid Interpretation CodeTrace/HPFHILLCREST [facility] UA Auto SSBilirubin Ql (U) Negative (10/02/23 1:55 PM)NormalNegativeHILLCREST MEDICAL C[facility] UA Auto SSCalcium oxalate crystals LM Ql (Urine sed)Present (10/02/23 1:55 PM)NormalHILLCREST MEDICAL [facility] UA Auto SSClarity (U)SL CLOUDYInvalid Interpretation CodeHILLCREST MEDICAL CENTER – [facility] UA Auto SSColor (U)Yellow (10/02/23 1:55 PM)NormalYellowHILLCREST MEDICAL CENTER – [place] UA Auto SSEpithelial cells.squamous LM.HPF (Urine sed) [#/Area]3-4 /HPFNormal0-2/HPFHILLCREST MEDICAL CENTER [facility] UA Auto SSGlucose Test strip (U) [Mass/Vol]Negative (10/02/23 1:55 PM)NormalNegativeHILLCREST MEDICAL [facility]ENTER [facility] UA Auto SSHemoglobin Ql (U)Negative (10/02/23 1:55 PM)NormalNegativeHILLCREST MEDICAL [facility] U[facility] Auto SSKetones (U) [Mass/Vol]Negative (10/02/23 1:55 PM)NormalNegativeHILLCREST MEDICAL [facility] UA Auto SSLithium.plasma/[place].RBC (Bld) [Mass ratio]0-3 /HPFNormal0-3/HPFFTMC UA Auto SSMucus Ql (Urine sed)Trace (10/02/23 1:55 PM)NormalHILLCREST MEDICAL [facility]ENTER [facility] UA Auto SSNitrite Ql (U)Negative (10/02/23 1:55 PM)NormalNegativeHILLCREST [facility] UA Auto SSpH (U)6.5 *NA* (10/02/23 1:55 PM)Invalid Interpretation Code5.0 - 9.0[facility] Auto SSProtein (U) [Mass/Vol]Negative (10/02/23 1:55 PM)NormalNegativeHILLCREST MEDICAL [facility]ENTER [facility] UA Auto SSSpecific gravity (U) [Rel density] 1.020 *NA* (10/02/23 1:55 PM)Invalid Interpretation Code1.005 - 1.030[facility] Auto SSUA Spec DescRandom Urine (10/02/23 1:55 PM)NormalHILLCREST MEDICAL CENTER – [facility] UA Auto SSUrobilinogen Qn (U)0.1051681 {Mi'U}/dLNormal0.0 - 1.0 EU/dLHILLCREST MEDICAL CENTER – [facility] UA Auto SSWBC Auto Ql (U)Negative (10/02/23 1:55 PM)NormalNegativeHILLCREST [facility] U[facility] Auto SSWBC LM.HPF (Urine sed) [#/Area]0-5 /HPFNormal0-5/HPFHILLCREST MEDICAL CENTER [facility] UA Auto SSProvider Orderson 01-14-8603Pjoiclqn Orders [id number]#1.00[facility] Provider Orderson 12-67-3856Gzahwhyn Orders [id number]#1.00[facility] Provider Orderson 57-11-9696Cnqupuuv Orders [id number]#1.00[facility] CALCULI, URINARYon ,8 DihydroxyadenineSt. Charles Hospital Comment on above:Performed By: #### CALCULI #### [facility] [address] [place] [address] Dr. Graciela PazAmmonium Acid UrateNormalCleveland Clinic [facility] on above: Performed By: #### CALCULI #### [facility] [address] [address] [address] Graciela Castirubin Ql (U)[facility] on above: Performed By: #### CALCULI #### [facility] [address] [address] [address] Graciela PazCa Oxalate Xunmzjxlj99 %[facility] HospitalComhenry ford [facility] on above:Performed By: #### CALCULI #### [facility] [address] [address] [address] Graciela BernsteinHPO4 (Brushite)[facility] on above: Performed By: #### CALCULI #### [facility] [address] [address] [address] Graciela Koo BilirubinateNGalion Hospital on above: Performed By: #### CALCULI #### [facility] [address] [address] [address] Graciela Catherineium CarbonateCleveland Clinic [facility] on above: Performed By: #### CALCULI #### [facility] [address] [address] [address] Graciela Catherineium Oxalate Monohydrate5 %[facility] on above:Performed By: #### CALCULI #### [facility] [address] [address] [address] Graciela Catherineium PalmitateCleveland Clinic [facility] on above: Performed By: #### CALCULI #### [facility] [address] [address] [address] Graciela Catherineium [facility]ateC[facility] on above: Performed By: #### CALCULI #### [facility] [address] [address] [address] Graciela Catherineium StearateNGalion Hospital on above: Performed By: #### CALCULI #### [facility] [address] [address] [address] Graciela PazCarbonate ApatiteCleveland Clinic Fairview Hospital on above: Performed By: #### CALCULI #### [facility] [address] [address] [address] Graciela Delunaular MaterialCleveland Clinic Fairview Hospital on above: Performed By: #### CALCULI #### [facility] [address] [address] [address] Graciela PazCholesterolCleveland Clinic Fairview Hospital on above:Performed By: #### CALCULI #### [facility] [address] [address] [address] Graciela Simmons ([facility] HospitalComhenry ford [facility] on above:Performed By: #### CALCULI #### [facility] [address] [place] [address] Dr. Graciela RubioSaint John'S Regional Health CenterharpreetCleveland Clinic [facility]view [facility] on above:Result Comment: Calcium phosphate (hydroxyl form) includes hydroxyapatite, amorphous calcium phosphate, and whitlockite. Hydroxyapatite is the most common of the calcium phosphate salts found in human kidney stones.Performed By: #### CALCULI #### [facility] [address] [place] [address] Dr. Graciela Broderick Comment: Calculus received wet. Wet calculi must be dried before analysis, which delays reporting of results. Leaving calculi wet (such as water, saline, blood, urine) may lead to changes in composition.Comment:[facility] on above:Result Comment: Physician questions regarding Calculi Analysis contact [facility] at: [phone].Performed By: #### CALCULI #### [facility] [address] [address] [address] Graciela McintyreSaint John'S Regional Health CenterharpreetCleveland Clinic [facility] on above: Result Comment: Percentage (Represents the % composition)Performed By: #### CALCULI #### [facility] [address] [address] [address] Graciela PazCystineCleveland Clinic Fairview Hospital on above:Performed By: #### CALCULI #### [facility] [address] [place] [address] Dr. Graciela Oviedomer:[facility] on above: Result Comment: This test was developed and its performance characteristics determined by [employer]. It has not been cleared or approved by the Food and Drug Administration.Performed By: #### CALCULI #### [facility] [address] [place] [address] Dr. Graciela CoxCherrington HospitalComhenry ford hospital on above:Performed By: #### CALCULI #### [facility] [address] [place] [address] Dr. Graciela PazPresbyterian Hospital or MetaboliteSt. Charles HospitalComhenry ford hospital on above: Performed By: #### CALCULI #### [facility] [address] [place] [address] Dr. Graciela PazHydroxyapatite5 %NormalMartins Ferry HospitalComment on above: Performed By: #### CALCULI #### [facility] [address] [place] [address] Dr. Graciela PazMg NH4 PO4 (Struvite)St. Charles HospitalComment on above: Performed By: #### CALCULI #### [facility] [address] [place] [address] Dr. Graciela PazMgHPO4 (Newberyite)[facility] Hospitalment on above: Performed By: #### CALCULI #### [facility] [address] [place] [address] Dr. Graciela PazOther component(s)St. Charles HospitalComment on above: Performed By: #### CALCULI #### [facility] [address] [place] [address] Dr. Graciela PazPDF.[facility] on above:Performed By: #### CALCULI #### [facility] [address] [place] [address] Dr. Graciela PazPhotoComGeorgetown Behavioral Hospital on above:Result Comment: Photograph will follow under a separate coverPerformed By: #### CALCULI #### [facility] [address] [address] [address] Graciela Ortiz note:CommentCleveland Clinic Fairview Hospital on above: Result Comment: Calculi report will follow via computer, mail or ent consultant delivery.Performed By: #### CALCULI #### [facility] [address] [address] [address] Graciela [id number] [place] [address] on above:Result Comment: Multiple pieces received. Dimensions of the largest piece reported.Performed By: #### CALCULI #### [facility] [address] [address] [address] Graciela Webbum Acid UrateNGalion Hospital on above: Performed By: #### CALCULI #### [facility] [address] [place] [address] Dr. Graciela BustosSalem Regional Medical Center on above:Result Comment: Left KidneyPerformed By: #### CALCULI #### [facility] [address] [place] [address] Dr. Graciela PoseyCincinnati VA Medical Center on above:Performed By: #### CALCULI #### [facility] [address] [place] [address] Dr. Graciela Mccray [facility] on above:Performed By: #### CALCULI #### [facility] [address] [address] [address] Graciela Mccray Acid DihydrateNAultman HospitalComhenry ford hospital on above: Performed By: #### CALCULI #### [facility] [address] [address] [address] Moulton[address] [place], [place] [address]Comhen[facility] hospital on above:Performed By: #### CALCULI #### [facility] [address] [place] [address] Dr. Graciela BasurtoCincinnati VA Medical Center on above:Performed By: #### CALCULI #### [facility] [address] [address] [address] Graciela Flores AUTO DIFFon [id number] #0.1 103/ulNormal0.0-0.1The [facility] HospitalComment on above:Performed By: #### CBC #### [facility] [address] [address] [address] Graciela PazBasophils/100 WBC (Bld)0.8 %Normal0.2-2.0The [facility] Comment on above:Performed By: #### CBC #### [facility] [address] [address] [address] Graciela Goel #0.2 103/ulNormal0.0-0.7The [facility] HospitalComment on above: Performed By: #### CBC #### [facility] [address] [place] [address] Dr. Graciela Rehmanosinophils/100 WBC (Bld)3.2 %Normal0.9-7.0The [facility] Comment on above:Performed By: #### CBC #### [facility] [address] [address] [address] Graciela Rehmanrythrocyte distribution width (RBC) [Ratio]13.2 %Fuhcqb11.0-15.0 The [facility] HospitalComment on above:Performed By: #### CBC #### [facility] [address] [place] [address] Dr. Graciela PazHematocrit (Bld) [Volume fraction]37.3 %Vrcfue94.0-48.0The [facility] HospitalComment on above:Performed By: #### CBC #### [facility] [address] [address] [address] Graciela PazHemoglobin (Bld) [Mass/Vol]12.5 g/eRBhkzbr78.0-16.0The [facility] HospitalComment on above:Performed By: #### CBC #### [facility] [address] [place] [address] Dr. Graciela Junior #0.03 10e3/ulNormal0.00-0.03The [facility]isco HospitalComment on above:Performed By: #### CBC #### [facility] [address] [address] [address] Graciela Junior %0.5 %Normal0.0-0.5The [facility] HospitalComhenry ford hospital on above: Performed By: #### CBC #### [facility] [address] [place] [address] Dr. Graciela Vazquez #1.5 103/ulNormal1.2-3.8The [facility] HospitalComment on above:Performed By: #### CBC #### [facility] [address] [place] [address] Dr. Graciela Flanaganhocytes/100 WBC (Bld)23.7 %Kpekjy92.5-60.0The [facility] on above:Performed By: #### CBC #### [facility] [address] [place] [address] Dr. Graciela Griffin DIFF REQNONormalThe [facility] HospitalComment on above: Performed By: #### CBC #### [facility] [address] [place] [address] Dr. Graciela Ariza (RBC) [Entitic mass]30.3 cmBglazj98.7-34.0The [facility] Hospitalment on above:Performed By: #### CBC #### [facility] [address] [place] [address] Dr. Graciela Ariza (RBC) [Mass/Vol]33.5 g/tACiczqx46.9-35.2The [facility] on above:Performed By: #### CBC #### [facility] [address] [place] [address] Dr. Graciela Ariza (RBC) [Entitic vol]90.5 wYOqlgxq10.0-99.0The [facility] on above:Performed By: #### CBC #### [facility] [address] [place] [address] Dr. Graciela Jain #0.6 103/ulNormal0.3-0.8The [facility] HospitalComment on above:Performed By: #### CBC #### [facility] [address] [address] [address] Graciela Sahuocytes/100 WBC (Bld)9.1 %Normal1.7-12.0The [facility] on above:Performed By: #### CBC #### [facility] [address] [place] [address] Dr. Graciela TuckerUT #4.1 103/ulNormal1.4-6.5The [facility] HospitalComment on above:Performed By: #### CBC #### [facility] [address] [place] [address] Dr. Graciela Tuckerutrophils/100 WBC (Bld)62.7 %Jmxqep03.0-75.0The [facility] HospitalComment on above:Performed By: #### CBC #### [facility] [address] [place] [address] Dr. Graciela PazPlatelet mean volume (Bld) [Entitic vol]9.7 fLNormal9.5-13.5The [facility] HospitalComment on above:Performed By: #### CBC #### [facility] [address] [place] [address] Dr. Graciela PazPLT193 103/pqFeepzz908-503Wlo [facility] Hospitalment on above: Performed By: #### CBC #### [facility] [address] [place] [address] Dr. Graciela PazRBC4.12 106/ulCritically low4.20-5.40The [facility] Hospitalment on above:Performed By: #### CBC #### [facility] [address] [place] [address] Dr. Graciela PazWBC6.5 103/ulNormal4.0-11.0The [facility] on above: Performed By: #### CBC #### [facility] [address] [place] [address] Dr. Owens ChangER URINE PROFILEon [id number] Ql (U)SMALLAbnormal NEGATIVEThe [facility] HospitalComment on above:Performed By: #### GLENNA, ERUR #### [facility] [address] [address] [address] Graciela Pro (U)CLOUDYAbnormalCLEARThe [facility] HospitalComment on above:Performed By: #### GLENNA, ERUR #### [facility] [address] [address] [address] Graciela Simmons (U)DK. YELLOWNormalYELLOWMartins Ferry HospitalComment on above:Performed By: #### GLENNA, ERUR #### [facility] [address] [address] [address] Graciela Estevez micrscopic examination will be performed if indicated. NormalMartins Ferry HospitalComment on above:Performed By: #### GLENNA, ERUR #### [facility] [address] [address] [address] Graciela PazGlucose Ql (U)NegativeNormalNEGATIVEMartins Ferry HospitalComment on above:Performed By: #### GLENNA, ERUR #### [facility] [address] [address] [address] Graciela PazHemoglobin Ql (U)LARGEAbnormalNEGATIVEWayne Hospital on above:Performed By: #### GLENNA, ERUR #### [facility] [address] [address] [address] Graciela PazKetones Ql (U)TRACEAbnormalNEGATIVEMartins Ferry HospitalComment on above:Performed By: #### GLENNA, ERUR #### [facility] [address] [address] [address] Graciela PazLEUKOCYTESTRACEAbnormalNEGATIVEMartins Ferry HospitalComment on above:Performed By: #### GLENNA, ERUR #### [facility] [address] [address] [address] Graciela PazNitrite Ql (U)NegativeNormalNEGATIVEMartins Ferry HospitalComment on above:Performed By: #### GLENNA, ERUR #### [facility] [address] [address] [address] Graciela PazpH (U)6.5 [pH]Normal5-9The [facility] HospitalComment on above: Performed By: #### GLENNA, ERUR #### [facility] [address] [address] [address] Graciela PazProtein (U) [Mass/Vol]300 mg/dLAbnormalNEGATIVE/ TRACEThe [facility] HospitalComment on above:Performed By: #### GLENNA, ERUR #### [facility] [address] [place] [address] Dr. Graciela PazSPEC GRAVITY1.476Ocovajyr6.005-<=1.025The [facility] Comment on above:Performed By: #### GLENNA ERUR #### [facility] [address] [place] [address] Dr. Graciela PazUR MICRO INDINDICATEDNormalThe [facility] HospitalComment on above: Performed By: #### GLENNA ERUR #### [facility] [address] [place] [address] Dr. Graciela Carrillobilinogen Qn (U)0.2 {Mi'U}/dLNormal0.2 - 1.0The [facility] HospitalComment on above:Performed By: #### GLENNA ERUR #### [facility] [address] [place] [address] Dr. Graciela PazPROF 14(COMP METB)on 34-23-6975Bxaylus [Mass/Vol]4.4 g/dLNormal 3.4-5.0The [facility] HospitalComment on above:Performed By: #### CMP #### [facility] [address] [place] [address] Dr. Graciela PazAlbumin/Globulin [Mass ratio]1.2 {ratio}NormalThe [facility] HospitalComment on above:Performed By: #### CMP #### [facility] [address] [place] [address] Dr. Graciela KaurP [Catalytic activity/Vol]105 U/ZBkljyk40-808Tbt [facility] HospitalComment on above:Performed By: #### CMP #### [facility] [address] [address] [address] Graciela Clemons [Catalytic activity/Vol]54 U/TXvcvbq96-90Zla [facility] HospitalComment on above:Performed By: #### CMP #### [facility] [address] [address] [address] Graciela Amaroon gap [Moles/Vol]13.9 mmol/LNormalThe [facility] Comment on above:Performed By: #### CMP #### [facility] [address] [address] [address] Graciela PazAST [Catalytic activity/Vol]38 U/LCritically zhsg94-48Mik [facility] HospitalComment on above:Performed By: #### CMP #### [facility] [address] [place] [address] Dr. Graciela PazBilirubin [Mass/Vol]0.5 mg/dLNormal0.2-1.0[facility] Comment on above:Performed By: #### CMP #### [facility] [address] [place] [address] Dr. Graciela PazCalcium [Mass/Vol]10.9 mg/dLCritically high8.5-10.1[facility]erry HospitalComment on above:Performed By: #### CMP #### [facility] [address] [place] [address] Dr. Graciela PazChloride [Moles/Vol]103 mmol/LJyaoij69-628Jpk [facility] Comment on above:Performed By: #### CMP #### [facility] [address] [place] [address] Dr. Graciela PazCO2 [Moles/Vol]24.1 mmol/UOjzyhj56.0-32.0The [facility] Comment on above:Performed By: #### CMP #### [facility] [address] [place] [address] Dr. Graciela PazCreatinine [Mass/Vol]0.60 mg/dLNormal0.55-1.02[facility] Ferry HospitalComment on above:Performed By: #### CMP #### [facility] [address] [address] [address] Graciela RehmanGFR-AF SAO TOMEAN>60Normal>=60The [facility] HospitalComment on above:Performed By: #### CMP #### [facility] [address] [address] [address] Graciela RehmanGFR-NON AF SAO TOMEAN>60Normal>=60The [facility] HospitalComment on above:Performed By: #### CMP #### [facility] [address] [address] [address] Graciela PazGlobulin (S) [Mass/Vol]3.7 g/dLNormalThe [facility] HospitalComment on above:Performed By: #### CMP #### [facility] [address] [place] [address] Dr. Graciela PazGlucose [Mass/Vol]111 mg/dLCritically xqtx07-813Vom [facility] HospitalComment on above:Performed By: #### CMP #### [facility] [address] [address] [address] Graciela PazPotassium [Moles/Vol]4.0 mmol/LNormal3.5-5.1The [facility] Comment on above:Performed By: #### CMP #### [facility] [address] [address] [address] Graciela PazProtein [Mass/Vol]8.1 g/dLNormal6.4-8.2[facility] Comment on above:Performed By: #### CMP #### [facility] [address] [address] [address] Graciela PazSodium [Moles/Vol]137 mmol/IOuwxpf911-260LhsMartins Ferry Hospital Comment on above:Performed By: #### CMP #### [facility] [address] [address] [address] Graciela PazUrea nitrogen [Mass/Vol]11.0 mg/dLNormal7.0-18.0The [facility] HospitalComment on above:Performed By: #### CMP #### [facility] [address] [address] [address] Graciela PazUrea nitrogen/Creatinine [Mass ratio]18.3 mg/mgSt. Charles HospitalComhenry ford hospital on above:Performed By: #### CMP #### [facility] [address] [address] [address] Graciela Fiore MICROSCOPIC ONLYon [id number] SEENNormalNONE SEENMartins Ferry HospitalComhenry ford hospital on above:Performed By: #### GLENNA, ERUR #### [facility] [address] [address] [address] Graciela Ramosctchago identified Cx Nom (U)NOT INDICATEDSt. Charles HospitalComhenry ford hospital on above:Performed By: #### GLENNA, ERUR #### [facility] [address] [place] [address] Dr. Graciela HernandezNONE SEENNormalNONE SEENMartins Ferry HospitalComhenry ford hospital on above:Performed By: #### GLENNA, ERUR #### [facility] [address] [place] [address] Dr. Graciela Talaveraystals LM Nom (Urine sed)NONE SEENNormalNONE SEENMartins Ferry HospitalComhenry ford hospital on above:Performed By: #### GLENNA, ERUR #### [facility] [address] [address] [address] Owens ChangEpithelial cells LM Ql (Urine sed)RARENormalNONE SEEN /RAREMartins Ferry HospitalComhenry ford hospital on above:Performed By: #### GLENNA, ERUR #### [facility] [address] [place] [address] Dr. Graciela BarcenasCOUSNONE SEENNormalNONE SEENMartins Ferry HospitalComhenry ford hospital on above:Performed By: #### GLENNA, ERUR #### [facility] [address] [address] [address] Graciela GarrisonC (U) [#/Vol]/uLAbnormal0-2The [facility] HospitalComment on above:Performed By: #### SHAD MANZANARES #### [facility] [address] [place] [address] Dr. Graciela PazWBC5-10AbnormalNONE SEENThe [facility] HospitalComment on above: Performed By: #### SHAD MANZANARES #### [facility] [address] [place] [address] Dr. Graciela Finley HCG QUALon [id number], QUALNegativeNormalNEGATIVE The [facility] HospitalComhenry ford hospital on above:Performed By: #### PREG #### [facility] [address] [place] [address] Dr. Graciela Flores AUTO DIFFon [id number] #0.0 103/ulNormal0.0-0.1The [facility] HospitalComment on above:Performed By: #### CBC #### [facility] [address] [place] [address] Dr. Graciela PazBasophils/100 WBC (Bld)0.9 %Normal0.2-2.0[facility] Comment on above:Performed By: #### CBC #### [facility] [address] [place] [address] Dr. Graciela Goel #0.3 103/ulNormal0.0-0.7The [facility] on above: Performed By: #### CBC #### [facility] [address] [place] [address] Dr. Graciela Rehmanosinophils/100 WBC (Bld)5.9 %Normal0.9-7.0[facility] Comment on above:Performed By: #### CBC #### [facility] [address] [place] [address] Dr. Graciela Rehmanrythrocyte distribution width (RBC) [Ratio]13.0 %Fjwwhj93.0-15.0 [facility] Hospitalment on above:Performed By: #### CBC #### [facility] [address] [place] [address] Dr. Graciela PazHematocrit (Bld) [Volume fraction]35.3 %Critically low36.0-48.0 The [facility] HospitalComment on above:Performed By: #### CBC #### [facility] [address] [place] [address] Dr. Graciela PazHemoglobin (Bld) [Mass/Vol]11.8 g/dLCritically low12.0-16.0The [facility] HospitalComment on above:Performed By: #### CBC #### [facility] [address] [place] [address] Dr. Graciela Junior #0.01 10e3/ulNormal0.00-0.03The [facility] HospitalComment on above:Performed By: #### CBC #### [facility] [address] [place] [address] Dr. Graciela Junior %0.2 %Normal0.0-0.5The [facility] HospitalComment on above: Performed By: #### CBC #### [facility] [address] [place] [address] Dr. Graciela Vazquez #1.3 103/ulNormal1.2-3.8The [facility] HospitalComment on above:Performed By: #### CBC #### [facility] [address] [place] [address] Dr. Graciela Flanaganhocytes/100 WBC (Bld)28.8 %Dpghxf66.5-60.0The [facility] HospitalComment on above:Performed By: #### CBC #### [facility] [address] [place] [address] Dr. Graciela De La FuenteUAL DIFF REQNONormalThe [facility] HospitalComment on above: Performed By: #### CBC #### [facility] [address] [place] [address] Dr. Graciela Olivares (RBC) [Entitic mass]30.0 fpKhwhsl24.7-34.0The [facility] HospitalComment on above:Performed By: #### CBC #### [facility] [address] [place] [address] Dr. Graciela ArizaHC (RBC) [Mass/Vol]33.4 g/lVSejedd73.9-35.2The [facility] HospitalComment on above:Performed By: #### CBC #### [facility] [address] [place] [address] Dr. Graciela ArizaV (RBC) [Entitic vol]89.8 gHSrhits29.0-99.0The [facility] HospitalComment on above:Performed By: #### CBC #### [facility] [address] [place] [address] Dr. Graciela Jain #0.5 103/ulNormal0.3-0.8The [facility] HospitalComment on above:Performed By: #### CBC #### [facility] [address] [place] [address] Dr. Graciela Sahuocytes/100 WBC (Bld)10.3 %Normal1.7-12.0The [facility] Comment on above:Performed By: #### CBC #### [facility] [address] [place] [address] Dr. Graciela Kitchen #2.4 103/ulNormal1.4-6.5The [facility] HospitalComment on above:Performed By: #### CBC #### [facility] [address] [place] [address] Dr. Graciela Tuckerutrophils/100 WBC (Bld)53.9 %Vyygpk45.0-75.0The [facility] HospitalComment on above:Performed By: #### CBC #### [facility] [address] [place] [address] Dr. Graciela Bustoslet mean volume (Bld) [Entitic vol]9.2 fLCritically low 9.5-13.5The [facility] HospitalComment on above:Performed By: #### CBC #### [facility] [address] [place] [address] Dr. Graciela DiazT132 103/ulCritically zyv964-994Iqe [facility] HospitalComment on above:Performed By: #### CBC #### [facility] [address] [place] [address] Dr. Graciela PazRBC3.93 106/ulCritically low4.20-5.40The [facility] HospitalComment on above:Performed By: #### CBC #### [facility] [address] [address] [address] Graciela PazWBC4.4 103/ulNormal4.0-11.0The [facility] HospitalComment on above: Performed By: #### CBC #### [facility] [address] [address] [address] Graciela PazPROF CHEM 8 (BAS METB)on 80-33-8985Efdvm gap [Moles/Vol]12.8 mmol/LNormalThe [facility]wiler [facility] HospitalComment on above:Performed By: #### BMP #### [facility] [address] [place] [address] Dr. Graciela PazCalcium [Mass/Vol]10.1 mg/dLNormal8.5-10.1[facility] Comment on above:Performed By: #### BMP #### [facility] [address] [place] [address] Dr. Graciela PazChloride [Moles/Vol]106 mmol/BKulhtp36-234Mhq [facility] Comment on above:Performed By: #### BMP #### [facility] [address] [place] [address] Dr. Graciela PazCO2 [Moles/Vol]25.2 mmol/LRftshs63.0-32.0[facility] Comment on above:Performed By: #### BMP #### [facility] [address] [place] [address] Dr. Graciela PazCreatinine [Mass/Vol]0.44 mg/dLCritically low0.55-1.02The [facility] HospitalComment on above:Performed By: #### BMP #### [facility] [address] [place] [address] Dr. Graciela RehmanGFR-AF SAO TOMEAN>60Normal>=60The [facility] HospitalComment on above:Performed By: #### BMP #### [facility] [address] [address] [address] Graciela RehmanGFR-NON AF SAO TOMEAN>60Normal>=60The [facility] HospitalComment on above:Performed By: #### BMP #### [facility] [address] [address] [address] Graciela PazGlucose [Mass/Vol]96 mg/iYVzbjss02-419Miq [facility] Comment on above:Performed By: #### BMP #### [facility] [address] [address] [address] Graciela PazPotassium [Moles/Vol]4.2 mmol/LNormal3.5-5.1[facility] Comment on above:Performed By: #### BMP #### [facility] [address] [address] [address] Graciela PazSodium [Moles/Vol]140 mmol/NCdxqlp161-605Thp [facility] Comment on above:Performed By: #### BMP #### [facility] [address] [address] [address] Graciela PazUrea nitrogen [Mass/Vol]9.0 mg/dLNormal7.0-18.0[facility] HospitalComment on above:Performed By: #### BMP #### [facility] [address] [address] [address] Graciela Dougherty nitrogen/Creatinine [Mass ratio]20.5 mg/mgNoOhioHealth Grove City Methodist HospitalComment on above:Performed By: #### BMP #### [facility] [address] [address] [address] Graciela PazPROTIMEon 37-03-7512BOW Coag (PPP) [Relative time]0.97 {INR} NormalMartins Ferry HospitalComment on above:Performed By: #### PT, PTT ####[facility] [address] [address]Dr. Graciela Bailey GUIDELINESSEE BELOWSt. Charles HospitalComment on above: Result Comment: DESIRED INR: 2.0 - 3.0 CONDITIONS NOT LISTED BELOW 2.5 - 3.5 FOR PROSTHETIC HEART VALVE REPLACEMENT 2.5 - 3.5 RECURRENT THROMBOSISPerformed By: #### PT, PTT ####[facility] [address] [place], [place] [address]Od. Graciela PazPT Coag (PPP) [Time]10.3 sNormal9.0-11.6The [facility] HospitalComment on above:Performed By: #### PT, PTT ####[facility] [address] [place], [place] [address]Vk. Graciela PazPTTon 39-40-2971yDFH Coag (Bld) [Time]26.8 jUndcqk04.3-36.2[facility] Comment on above:Performed By: #### PT, PTT ####[facility] [address] [place], [place] [address]Io. Graciela PazCT ABD/PELV WO W CONon 84-73-9779MQ ABD/PELV WO W CONINDICATION: Silver hematuria EXAMINATION: CT ABDOMEN AND PELVIS WITH CONTRAST TECHNIQUE: Helically acquired images were obtained of the abdomen and pelvis before and after intravenous administration of iodinated contrast. A radiation dose optimization technique was used for this scan. ENTERIC CONTRAST: Yes COMPARISON: 10/17/2011 FINDINGS: LOWER CHEST: The visualized portions of [...] Electronically authenticated by: KAYCE SANDS Date: 2022-08-28 15:34St. Charles HospitalESTRADIOLon 40-25-3396DHQIIESBL89 pg/mLNormalSt. Anthony Summit Medical CenterComment on above:Result Comment: REF VALUES FOLLICULAR PHASE 20-144 MID CYCLE 64-357 LUTEAL PHASE 56-214 POSTMENOPAUSE < 32 PREPUBERTY < 20 FEMALE 10-18Y 8-110 MALE 10-18Y < 20 ADULT MALE < 40Performed By: #### ESTRA #### [facility] [address] [place], [place] [address]OURTWIEE STIM. HORMONEon 12-76-7275CHCKYDYT STIM. YXMLFIG36.5 IU/LNormalSt. Anthony Summit Medical CenterComment on above:Result Comment: REF VALUES FOLLICULAR 2-12 MID-CYCLE 12-25 LUTEAL PHASE 2-12 MENOPAUSE 30-150 PREPUBERTY 50% ADULT ADULT MALE 2-10 INFANTS 0-1Performed By: #### FSH #### [facility] [address] [facility] [facility] [place], [place] [address]DQEda 15-72-9077Aoetc glutamyl transferase [Catalytic activity/Vol]26 U/LNormal5 - [address] [place], [place] [address]Comment on above: Performed By: #### GGT #### [address] [id number] 57-59-0748Cluvpoz [Mass/Vol]91 mg/nMPsmrkl60 - 99 [facility] Medical CenterComment on above:Performed By: #### GLU #### [address] [id number] A1Con 80-76-1147ShA0p (Bld) [Mass fraction]5.3 % NormalSt. Anthony Summit Medical CenterComment on above:Result Comment: Diagnosis of Diabetes-Adults Non-Diabetic: < or = 5.6% Increased risk for developing diabetes: 5.7-6.4% Diagnostic of diabetes: > or = 6.5% . Monitoring of Diabetes Age (y) Therapeutic Goal (%) Adults: >18 <7.0 Pediatrics: 13-18 <7.5 7-12 <8.0 0- 6 7.5-8.5 [employer]. Diabetes Care 33(S1), Aug 2009.Performed By: #### HBA1E #### [facility] [address] [place], [place] [address]FlY8u (Bld) [Mass fraction]105 MG/DLNoUCHealth Grandview HospitalComment on above:Performed By: #### HBA1E #### [facility] [address] [place], [place] [address]LTMHMYW FUNCTION PANELon 87-39-8656Ukgexep [Mass/Vol]4.1 g/dL Normal3.4 - 5.0St[facility] Medical CenterComment on above:Performed By: #### HEPFP #### [address] [id number] [Catalytic activity/Vol]113 U/LHigh33 - 110St. [facility] Medical CenterComment on above:Performed By: #### HEPFP #### [address] [id number] [Catalytic activity/Vol]29 U/LNormal7 - 45St. [facility] Medical CenterComment on above:Result Comment: Patients treated with Sulfasalazine may generate falsely decreased results for ALT.Performed By: #### HEPFP #### [address] [id number] [Catalytic activity/Vol]24 U/LNormal9 - 39St. [facility] Medical CenterComment on above:Performed By: #### HEPFP #### [address] [id number] [Mass/Vol]0.4 mg/dLNormal0.0 - 1.2St[facility] CenterComment on above:Performed By: #### HEPFP #### [address] [id number].direct [Mass/Vol]0.1 mg/dLNormal0.0 - 0.3St. [facility] Medical CenterComment on above:Performed By: #### HEPFP #### [address] [id number] [Mass/Vol]6.9 g/dLNormal6.4 - 8.2St. [facility] Medical CenterComment on above:Performed By: #### HEPFP #### [address] [id number] PANEL (CORONARY RISK 2)on 37-63-1060Xtacuguyzsx [Mass/Vol]203 mg/dLHigh0 - 199St. [facility] Medical CenterComment on above:Result Comment: . AGE DESIRABLE BORDERLINE HIGH HIGH [...] should be performed immediately prior to Metamizole dosing.Performed By: #### LIPID #### [address] [id number] in HDL [Mass/Vol]32.0 mg/dLAbnormalUH Trinity Community HospitalComment on above:Result Comment: . AGE VERY LOW LOW NORMAL HIGH 0-19 Y < 35 < 40 40-45 ---- 20-24 Y ---- < 40 >45 ---- >24 Y ---- < 40 40-60 >60 .Performed By: #### LIPID #### [address] [id number] in LDL [Mass/Vol]130 mg/dLHigh0 - 109St. [facility] Medical CenterComment on above:Result Comment: . NEAR BORD AGE DESIRABLE OPTIMAL HIGH HIGH VERY HIGH 0-19 Y 0 - 109 --- 110-129 >/= 130 ---- 20-24 Y 0 - 119 --- 120-159 >/= 160 ---- >24 Y 0 - 99 100-129 130-159 160-189 >/=190 .Performed By: #### LIPID #### [address] [id number] in VLDL [Mass/Vol]41 mg/dLHigh0 - 40St. [facility] Medical CenterComment on above:Performed By: #### LIPID #### [address] [id number].total/Cholesterol in HDL [Mass ratio]6.3 {ratio} AbnormalSt. Anthony Summit Medical CenterComment on above:Result Comment: REF VALUES DESIRABLE < 3.4 HIGH RISK > 5.0Performed By: #### LIPID #### [address] [id number]-CXW SXQJIMPIXEU235 mg/dLHigh0 - 119St. [facility] Summit Medical CenterComment on above:Result Comment: AGE DESIRABLE BORDERLINE HIGH HIGH VERY HIGH 0-19 Y 0 - 119 120 - 144 >/= 145 >/= 160 20-24 Y 0 - 149 150 - 189 >/= 190 ---- >24 Y 30 MG/DL ABOVE LDL CHOLESTEROL GOAL .Performed By: #### LIPID #### [address] [id number] [Mass/Vol]206 mg/dLHigh0 - 149St. [facility] Medical CenterComment on above:Result Comment: . AGE DESIRABLE BORDERLINE HIGH HIGH [...] should be performed immediately prior to Metamizole dosing.Performed By: #### LIPID #### [address] [id number] HORMONEon 71-25-6470EQRFADYXOHZ UIEJVOH35.3 IU/L NormalSt. Anthony Summit Medical CenterComment on above:Result Comment: REF VALUES FOLLICULAR PHASE 1.9-12.5 MID-CYCLE 8.7-76.3 LUTEAL PHASE 0.5-16.9 POST MENOPAUSE 5.0-55.2 CHILDREN 0- 6.0 ADULT MALE 18-70 1.5- 9.3 ADULT MALE >70 3.1-34.6Performed By: #### LH #### [facility] [address] [place], [place] [address]WRWAAIZNR,FREEon 22-93-3221WQMNKQLDT,FREE0.80 ng/dLNormal0.61 - 1.12St. [facility] Medical CenterComment on above:Result Comment: Thyroxine Free testing is performed using different testing methodology at [facility] than at other [facility]. Direct result comparisons should only be made within the same method. . Biotin can cause falsely elevated free T4 results. Patients taking a Biotin dose of up to 10 mg/day should refrain from taking Biotin for 24 hours before sample collection. Patient taking a Biotin dose of >10 mg/day should consult with their physician or the laboratory before the blood draw.Performed By: #### T4FRE #### [address] [id number] 76-18-1144PMM Qn4.05 m[IU]/LHigh0.44 - 3.98UH Trinity Community HospitalComment on above:Result Comment: TSH testing is performed using different testing methodology at [facility] than at other [facility]. Direct result comparisons should only be made within the same method.Performed By: #### TSH2 #### [address] [id number] AB,IGAon 66-83-6614GFE AB,IGA<1Zstksm7 - 14St. [facility] Medical CenterComment on above:Result Comment: Celiac disease is unlikely. False negative Tissue Transglutaminase Antibody, IgA results can occur in approximately 10% of patients with celiac disease, patients already adhering to a gluten-free diet, or patients with IgA deficiency.Performed By: #### HEPFP #### [address] [id number] CHEST W WO CONTRASTon 06-17-7608BRO CHEST W WO CONTRAST [facility] Department of Radiology [address] [place] [id number] Patient Name: KEYONA ATKINS : 2000 Sex: F Age: Race: White Pt. 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 Electronically signed by:Radha Orozco. Transcribed by: [email or web address], User Resident: Electronically Signed by: RADHA OROZCO @ 04/23/2019 01:10 [facility] CenterComment on above:Order Comment: , , , Ordering Provider - DEMAR COOMBS MD , MRA HEAD WO CONTRASTon 07-45-7340DUB HEAD WO CONTRASTUnMemorial Hospital Department of Radiology [address] [place] [address] Patient Name: KEYONA ATKINS : 2000 Sex: F Age: Race: White Pt. Location: Patient Status: D Ordered Date: 03/24/2019 3:30:00 PM Completed Date: 04/22/2019 12:59 PM Requesting Provider: DEMAR SCHUSTER Attending Provider: DEMAR SCHUSTER Report Copy To: DESTINEE CASTRO Signs & Symptoms: I10 Essential (primary) hypertension I10 History: Mattie, No FB per mother Sunday [place] auth # [id number] 03/28/19-04/27/19 [id number] *er Comments: , , , Ordering Provider [...] findings. Electronically signed by:Ayana Cary. Transcribed by: [email or web address], User Resident: BARAK FOREMAN Electronically Signed by: AYANA CARY @ 04/23/2019 06:22 PM I personally read this/these film(s) with this residentElyria Memorial HospitalComment on above:Order Comment: , , , Ordering Provider - DEMAR COOMBS MD , MRI CARDIAC WITH AND WITHOUT CONTRASTon 34-56-8379RYF CARDIAC WITH AND WITHOUT CONTRASTLouis Stokes [facility] Department of Radiology [address] [place] [id number] Patient Name: KEYONA ATKINS : 2000 Sex: F Age: Race: White Pt. 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 Electronically signed by:Radha Orozco. Transcribed by: [email or web address], User Resident: Electronically Signed by: RADHA OROZCO @ 04/23/2019 01:10 [facility] CenterComment on above:Order Comment: , , , Ordering Provider - DEMAR COOMBS MD , US PELVISon 70-74-2539EF PELVISTurner syndrome REASON FOR EXAM: R/O PCOS ;Umanzor [...] by: Mimi Thomas MD on 10/10/2018 12:02 PMNormalMansfield HospitalEstradiol, E2on 40-08-7199Anqghgseo, Y6LilwppWowaglykqdMansfield HospitalComment on above:Result Comment: <10 Unit: pg/mL (NOTE) REFERENCE VALUE [...] year earlier in obese girls and in -Filipino girls. Progression through Cyrus stages is variable. Cyrus stage V (adult) should be reached by age 18. ADDITIONAL INFORMATION This test was developed and its performance characteristics determined by [facility] in a manner consistent with CLIA requirements. This test has not been cleared or approved by the U.S. Food and Drug Administration. Performed at [facility] [address], [address], [place], [place] [address]Sdtp TPO ABon 23-41-7843Vbls TPO YT8164 IU/mLHigh<35 Mansfield HospitalFSHo 35-29-3019FNX32.73 mIU/mLNMiddletown Hospital on above:Result Comment: (NOTE) FSH Reference Ranges MALE Age [...] 4.5-26.0 Postmenopausal 23.0-90.0 Cyrus Stage 1 0.8-3.2 Ycrus Stage 2 0.8-8.0 Cyrus Stage 3 1.0-9.6 Cyrus Stage 4 1.0-8.8 Cyrus Stage 5 0.8-7.0LHon 88-89-0890GM79.07 mIU/mLNMemorial HospitalComhenry ford hospital on above:Result Comment: (NOTE) LH Reference Ranges MALE AGE [...] Cyrus Stage 4 0.2-5.8 Cyrus Stage 5 0.2-5.8Thyroglobulin Antibodyon 55-83-8107Eszrxhwjtbiti Antibody 13.3HighNationwide Children's HospitalComment on above:Result Comment: Reference range: 0.0 to 4.0 Unit: IU/mL (NOTE) INTERPRETIVE INFORMATION: Thyroglobulin Antibody A value of 4.0 IU/mL or less indicates a negative result for thyroglobulin antibodies. The Thyroglobulin Antibody assay is being performed using the Michael Bosideng Access DxI method. [place] [address] [email or web address], Yobany Srivastava MD, Lab. [place] [address] Performed By: #### XTHYRG #### [place] [address] Comprehensive Metabolic Panelon 89-33-3279Glkmmzx [Mass/Vol]4.5 g/dLNormal 3.4-5.2NUK HealthcareALP [Catalytic activity/Vol]117 U/LHigh 54-96M[facility]field HospitalALT [Catalytic activity/Vol]18 U/LNormal<40 [facility] HospitalAST [Catalytic activity/Vol]22 U/KHjyiqs00-81 [facility] HospitalBilirubin Ql (U)0.2 mg/dLNormal0.1-1.0[facility] HospitalCalcium [Mass/Vol]10.4 mg/dLNormal8-10.5M[facility]field HospitalChloride [Moles/Vol]107 mmol/YTyfp63-294OqeghcveluMansfield Hospital CO2 [Moles/Vol]20 mmol/QGcd25-10GpfxmuyimcMansfield HospitalCreatinine [Mass/Vol]0.46 mg/dLLow0.5-0.8[facility] on above: Result Comment: Note: New reference intervals, effective July 09, 2018. Glucose [Mass/Vol]122 mg/yQPcpw57-093Sbwcjlidfn Children's HospitalPotassium [Moles/Vol]4.0 mmol/LNormal3.7-5.3[facility] HospitalProtein [Mass/Vol]7.8 g/dLNormal6.4-8.4[facility] HospitalSodium [Moles/Vol] 138 mmol/AOeispl910-620HnjllfxzlkMansfield HospitalUrea nitrogen [Mass/Vol]12 mg/dLNormal5-18M[facility]field HospitalFree T4on 34-03-5096Cjvl T4 [Mass/Vol]0.8 ng/dLNormal0.7-2.1NationRegency Hospital Cleveland WestHemoglobin A1Con 43-85-0055OeT2d (Bld) [Mass fraction]5.2 %Normal4.0-5.6M[facility]field HospitalHbA1c (Bld) [Mass fraction]103 mg/dLNormKettering Health Comment on above:Result Comment: The eAG is derived from the A1c result using a calculation from the Diabetes Control and Complication trial and reflects the average blood glucose over approximately the past 120 days, but weighted to the past 30 days.Lipid Profileon 35-85-3985Beiemdakeqt [Mass/Vol]225 mg/bVJdee28-221 [facility] HospitalComment on above:Performed By: #### MAAME #### Performed at [address] [address]Ecuthpbiwqc in HDL [Mass/Vol]34 mg/jJZfc62-03JzqimfsusnMansfield HospitalComment on above: Performed By: #### MAAME #### Performed at [address] [address]Oxywvprwjae in LDL [Mass/Vol]113 mg/rSGpzjsz40-803SwmguuspnpMansfield HospitalComment on above: Performed By: #### MAAME #### Performed at [address] [address]Dufpotftwejo [Mass/Vol]390 mg/vHRrso53-863NgugdmxspvMansfield HospitalComment on above: Performed By: #### MAAME #### Performed at [address] [address]EBQD Wqgzysdnzza18 mg/dLHigh6-20M[facility]field HospitalComment on above:Performed By: #### MAAME #### Performed at [address] [address]Fcceq Fasting Patient not fastingNormKettering HealthComment on above: Performed By: #### MAAME #### Performed at [facility], [address] [place] [address]JPLuh 09-23-2018 TSH Qn6.008 uIU/mLHigh0.4-4.0Mansfield HospitalVitamin D 25 Hydroxy on 42-10-8713Lmzpdtv D 25 Xqflznw28 ng/oDWbv18-447GruzvopnyyUniversity Hospitals Portage Medical Center Comment on above:Result Comment: (NOTE) <20 considered deficient. 21-29 considered insufficient. Reference ranges are based on Endocrine Society criteria.CREATININE,SERUMon 40-52-7937Itgllreppn [Mass/Vol]Unable to calculate GFR due to inappropriate age/gender/creatinine value.NormalEast Mountain HospitalComment on above: Performed By: #### CREAT #### Testing performed at [address] [address]Ledgnciepp [Mass/Vol]0.5 mg/dLLow0.52-1.04[facility] Mountain HospitalComment on above:Performed By: #### CREAT #### Testing performed at [address] [address]BJ CHEST WITH CONTRASTon 27-72-1667ME CHEST WITH CONTRAST PROCEDURE: CT CHEST WITH [...] vein with absence of the inferior vena cava.[facility] HospitalIMPRESSION: 1. 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 2. 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 COMPARISON: None. TECHNIQUE: After the administration of intravenous contrast, axial images were obtained through the chest. Coronal and sagittal reconstructions were generated. 75 mL of Omnipaque 350 intravenous contrast wasutilized. 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 Studies have demonstr- ated that endomysial IgA antibodies have over 99% specificity for gluten sensitive enteropathy. [facility]FORMED AT [facility]OSPITALPerformed By: #### CMPF, TSH2, LIP2, T42, ACBC #### Testing performed at [facility] [address] [place] [address] #### LTTG #### Testing performed at [facility] [address] [facility] [address] [place], [place] [id number] 0H VITAMIN D LEVELon 0H VITAMIN D LEVEL16.5 NG/MLLow>30East Mountain HospitalComment on above:Result Comment: DEFICIENT <20 NG/ML INSUFFICIENT 20-<30 NG/ML SUFFICIENT 30-100 NG/ML POTENTIAL TOXICITY >100 NG/MLPerformed By: #### VITD #### Testing performed at [address] [address]DHUoz 11-79-8093GZDZZHMZ BAS0.0 F21YlqyxzBgwxyAdvanced [facility] Comment on above:Performed By: #### CMPF, TSH2, LIP2, T42, ACBC #### Testing performed at [address] [address] #### LTTG #### Testing performed at [address] [place], [place] [address]QXPXRZMT EOS0.30 D91FxnugaAyxatEastern New Mexico Medical CenterComment on above:Performed By: #### CMPF, TSH2, LIP2, T42, ACBC #### Testing performed at [address] [address] #### LTTG #### Testing performed at [address] [place], [place] [address]LWHXJAJM NEUTROPHIL COUNT3.0 i55Tctwak7.0-7.0[facility] HospitalComment on above:Performed By: #### CMPF, TSH2, LIP2, T42, ACBC #### Testing performed at [address] [address] #### LTTG #### Testing performed at [address] [place], [place] [address]Qqezwvqlx/100 WBC (Bld)0.5 %Normal0.0-2.0[facility] Comment on above:Performed By: #### CMPF, TSH2, LIP2, T42, ACBC #### Testing performed at [address] [address] #### LTTG #### Testing performed at [address] [place], [place] [address]RPNMDUDLI DIFFBrattleboro Memorial HospitalComment on above: Performed By: #### CMPF, TSH2, LIP2, T42, ACBC #### Testing performed at [address] [address] #### LTTG #### Testing performed at [address] [place], [place] [address]Etykqawlufv/100 WBC (Bld)4.8 %Normal0.0-11.0[facility] HospitalComment on above:Performed By: #### CMPF, TSH2, LIP2, T42, ACBC #### Testing performed at [address] [address] #### LTTG #### Testing performed at [address] [place], [place] [address]Azooahruuxd (Bld) [#/Vol]1.50 M70FisvkyNtgliBrattleboro Memorial Hospital Comment on above:Performed By: #### CMPF, TSH2, LIP2, T42, ACBC #### [place] [address] #### LTTG #### Testing performed at [address] [place], [place] [address]Oogxauuspml/100 WBC (Bld)29.0 %Yhpnmp63.0-55.0[facility] HospitalComment on above:Performed By: #### CMPF, TSH2, LIP2, T42, ACBC #### Testing performed at [address] [address] #### LTTG #### Testing performed at [address] [place], [place] [address]Tjriaeimu (Bld) [#/Vol]0.5 H99PtfineYhayvEastern New Mexico Medical Center Comment on above:Performed By: #### CMPF, TSH2, LIP2, T42, ACBC #### Testing performed at [address] [address] #### LTTG #### Testing performed at [address] [place], [place] [address]Bwopmkcym/100 WBC (Bld)9.6 %Normal0.0-10.0[facility] Comment on above:Performed By: #### CMPF, TSH2, LIP2, T42, ACBC #### Testing performed at [address] [address] #### LTTG #### Testing performed at [address] [place], [place] [address]Vsrecfcnvmt/100 WBC (Bld)56.1 %Aiaqjs47.0-75.0[facility] HospitalComment on above:Performed By: #### CMPF, TSH2, LIP2, T42, ACBC #### Testing performed at [place] [id number] #### LTTG #### Testing performed at [address] [address]Muxgyiecott distribution width (RBC) [Ratio]15.2 %High11.5-14.5 [facility] on above:Performed By: #### CMPF, TSH2, LIP2, T42, ACBC #### [place] [address] #### LTTG #### Testing performed at [address] [address]Onrvfpfpup (Bld) [Volume fraction]37.0 %Nvbios93.0-48.0[facility] HospitalComment on above:Performed By: #### CMPF, TSH2, LIP2, T42, ACBC #### Testing performed at [address] [address] #### LTTG #### Testing performed at [address] [address]Zjzvcbzgpz (Bld) [Mass/Vol]12.1 g/iTGwsmef21.0-16.0East Mountain HospitalComment on above:Performed By: #### CMPF, TSH2, LIP2, T42, ACBC #### Testing performed at [address] [address] #### LTTG #### Testing performed at [address] [address]KLS (RBC) [Entitic mass]28.1 ecJcauld70.0-35.0[facility] HospitalComment on above:Performed By: #### CMPF, TSH2, LIP2, T42, ACBC #### Testing performed at [address] [address] #### LTTG #### Testing performed [address] [place], [place] [address]AHVZ (RBC) [Mass/Vol]32.7 g/uYCzwbic47.0-37.0[facility] HospitalComment on above:Performed By: #### CMPF, TSH2, LIP2, T42, ACBC #### [place] [address] #### LTTG #### Testing performed [address] [place], [place] [address]KSU (RBC) [Entitic vol]85.8 lPEefidm29.0-100.0[facility] HospitalComment on above:Performed By: #### CMPF, TSH2, LIP2, T42, ACBC #### [place] [address] #### LTTG #### Testing performed at [address] [address]Sushklly mean volume (Bld) [Entitic vol]8.2 fLNormal7.4-11.0 [facility] HospitalComment on above:Performed By: #### CMPF, TSH2, LIP2, T42, ACBC #### Testing performed at [address] [address] #### LTTG #### Testing performed at [address] [address]Yorixxhgz (Bld) [#/Vol]194 /ivsGxdpru977.0-400.0[facility] HospitalComment on above:Performed By: #### CMPF, TSH2, LIP2, T42, ACBC #### Testing performed at [address] [address] #### LTTG #### Testing performed at [address] [place], [place] [address]UYY (Bld) [#/Vol]4.32 /cmmNormal4.0-5.4AMarl[facility] Comment on above:Performed By: #### CMPF, TSH2, LIP2, T42, ACBC #### Testing performed at [address] [address] #### LTTG #### Testing performed at [address] [place], [place] [address]EYZ (Bld) [#/Vol]5.3 /cmmNormal3.6-13.0[facility] Comment on above:Performed By: #### CMPF, TSH2, LIP2, T42, ACBC #### Testing performed at [address] [address] #### LTTG #### Testing performed [address] [place], [place] [address]ILR FASTINGon 57-17-2681Troplyz [Mass/Vol]10.0 mg/dLNormal 8.8-10.7AMarlton Rehabilitation HospitalComment on above:Performed By: #### CMPF, TSH2, LIP2, T42, ACBC #### Testing performed at [address] [address] #### LTTG #### Testing performed at [address] [address]Kifjaxpf [Moles/Vol]104 mmol/IKpddsg95-034ZpqmvEast Mountain Hospital Comment on above:Performed By: #### CMPF, TSH2, LIP2, T42, ACBC #### Testing performed at [address] [address] #### LTTG #### Testing performed [address] [place], [place] [address]OX4 [Moles/Vol]21 mmol/MDtc11-87GolhcEast Mountain HospitalComment on above:Performed By: #### CMPF, TSH2, LIP2, T42, ACBC #### Testing performed at [address] [address] #### LTTG #### Testing performed at [place] [address] [place], [place] [address]Cyprtcm [Mass/Vol]95 mg/hHNfdypl49-996IlsvuEast Mountain Hospital Comment on above:Result Comment: NORMAL <100 mg/dL PREDIABETES 101-126 mg/dL DIABETES 126 mg/dL or higherPerformed By: #### CMPF, TSH2, LIP2, T42, ACBC #### Testing performed at [address] [address] #### LTTG #### Testing performed at [place] [address] [place], [place] [address]Ptwzhgghg [Moles/Vol]4.0 mmol/LNormal3.5-5.1AMarlton Rehabilitation HospitalComment on above:Performed By: #### CMPF, TSH2, LIP2, T42, ACBC #### Testing performed at [address] [address] #### LTTG #### Testing performed at [address] [place], [place] [address]Mclefd [Moles/Vol]137 mmol/ALpserc700-723FoegvEast Mountain Hospital Comment on above:Performed By: #### CMPF, TSH2, LIP2, T42, ACBC #### Testing performed at [address] [address] #### LTTG #### Testing performed at [address] [place], [place] [address]Z:G RATIO1.4 RATIONormal1.3-2.2AMarlton Rehabilitation HospitalComment on above:Performed By: #### CMPF, TSH2, LIP2, T42, ACBC #### Testing performed at [address] [address] #### LTTG #### Testing performed at [address] [place], [place] [address]Tvkbcvr [Mass/Vol]4.3 G/dlNormal3.5-5.0[facility] Comment on above:Performed By: #### CMPF, TSH2, LIP2, T42, ACBC #### Testing performed at [address] [address] #### LTTG #### Testing performed at [address] [place], [place] [address]LEU [Catalytic activity/Vol]149 U/BUsdh67-902IyjuvEast Mountain HospitalComment on above:Performed By: #### CMPF, TSH2, LIP2, T42, ACBC #### Testing performed at [address] [address] #### LTTG #### Testing performed at [address] [place], [place] [address]IIU [Catalytic activity/Vol]21 U/TAdagum70-41TcufwEast Mountain HospitalComment on above:Performed By: #### CMPF, TSH2, LIP2, T42, ACBC #### Testing performed at [address] [address] #### LTTG #### Testing performed at [address] [place], [place] [address]QUD [Catalytic activity/Vol]23 U/LYrmsgb92-82VrqnhEast Mountain HospitalComment on above:Performed By: #### CMPF, TSH2, LIP2, T42, ACBC #### Testing performed at [address] [address] #### LTTG #### Testing performed at [address] [place], [place] [address]Qxnoiefoi [Mass/Vol]0.6 mg/dLNormal0.2-1.9AMarlton Rehabilitation Hospital Comment on above:Performed By: #### CMPF, TSH2, LIP2, T42, ACBC #### Testing performed at [address] [address] #### LTTG #### Testing performed at [address] [place], [place] [address]Oygvvwmqsg [Mass/Vol]0.5 mg/dLLow0.52-1.04[facility] Comment on above:Performed By: #### CMPF, TSH2, LIP2, T42, ACBC #### Testing performed at [address] [address] #### LTTG #### Testing performed at [address] [address]YFY/1.73 sq M predicted among non-blacks MDRD (S/P/Bld) [Vol rate/Area]Unable to calculate GFR due to inappropriate age/gender/creatinine value.NormalEast Mountain HospitalComment on above:Performed By: #### CMPF, TSH2, LIP2, T42, ACBC #### Testing performed at [address] [address] #### LTTG #### Testing performed [address] [place], [place] [address]Cohddpy [Mass/Vol]7.4 g/dLNormal6.3-8.6AMarlton Rehabilitation Hospital Comment on above:Performed By: #### CMPF, TSH2, LIP2, T42, ACBC #### Testing performed at [address] [address] #### LTTG #### Testing performed at [address] [address]Okxz nitrogen [Mass/Vol]10 mg/dLNormal7-20[facility] Comment on above:Performed By: #### CMPF, TSH2, LIP2, T42, ACBC #### Testing performed at [address] [address] #### LTTG #### Testing performed at [address] [address]FCZQ T4on 38-17-8255Hcoz T4 [Mass/Vol]0.68 ng/dLLow0.93-1.60 [facility] HospitalComment on above:Performed By: #### CMPF, TSH2, LIP2, T42, ACBC #### Testing performed at [address] [address] #### LTTG #### Testing performed at [place] [address] [place], [place] [address]JIQKUAHHOF A1Con 87-35-0880XjD4z (Bld) [Mass fraction]5.2 % Normal<6ATuscarawas Hospital on above:Result Comment: NORMAL <5.7% PREDIABETES 5.7-6.4% DIABETES 6.5% OR HIGHERPerformed By: #### HA1CT #### Testing performed at [address] [address]JkC0k (Bld) [Mass fraction]103 mg/dLNormalAMarlton Rehabilitation HospitalComhenry ford hospital on above:Performed By: #### HA1CT #### Testing performed at [address] [address]ZNOWY PROFILEon 62-94-8914Mocylhfanmk [Mass/Vol]234 mg/dLHigh 82-199East Mountain HospitalComment on above:Performed By: #### CMPF, TSH2, LIP2, T42, ACBC #### Testing performed at [address] [address] #### LTTG #### Testing performed at [address] [place], [place] [address]Bhykaeyspvs in HDL [Mass/Vol]39 mg/wTZwu99-92EkhpqSumma Health Barberton Campus on above:Performed By: #### CMPF, TSH2, LIP2, T42, ACBC #### Testing performed at [address] [address] #### LTTG #### Testing performed at [place] [address] [place], [place] [address]Fsvxombmwvx in LDL [Mass/Vol]154 mg/dLHigh0-100[facility] on above:Performed By: #### CMPF, TSH2, LIP2, T42, ACBC #### Testing performed at [address] [address] #### LTTG #### Testing performed at [place] [address] [place], [place] [address]Elscsbijfkp in VLDL [Mass/Vol]41 mg/dLHigh5.0-25.0[facility] HospitalComment on above:Performed By: #### CMPF, TSH2, LIP2, T42, ACBC #### Testing performed at [address] [address] #### LTTG #### Testing performed at [address] [address]Hhctucyyuug.total/Cholesterol in HDL [Mass ratio]6.00 {ratio} NormalEast Mountain HospitalComment on above:Result Comment: RISK TOTAL/HDL RATIO MEN WOMEN 1/2 AVERAGE 3.43 3.27 AVERAGE 4.97 4.44 2X AVERAGE 9.55 7.05 3X AVERAGE 23.99 11.04Performed By: #### CMPF, TSH2, LIP2, T42, ACBC #### [place] [address] #### LTTG #### Testing performed at [address] [address]Dpomgeixrxpn [Mass/Vol]203 mg/dLHigh<150[facility] Comment on above:Performed By: #### CMPF, TSH2, LIP2, T42, ACBC #### Testing performed at [address] [address] #### LTTG #### Testing performed at [place], [place] [address]TSHon 72-22-9647XBQ Qn5.424 uIU/MLNormal0.36-5.80[facility] Mountain HospitalComment on above:Performed By: #### CMPF, TSH2, LIP2, T42, ACBC #### Testing performed at [address] [address] #### LTTG #### Testing performed at [address] [address] Vital Signs Date TimeVital SignValuePerforming LguhngeinSihdmyve36-10-4484 08:55-0400Blood Pressure [facility]06-05-2024 08:55-0400Body vcyycfxjdls65.6 [degF]Arelis Lue [facility]06-05-2024 08:55-0400Diastolic blood bpyuslhc34 mm[Hg]Arelis Lue [facility]06-05-2024 08:55-0400Heart rate67 /minKathy Lue [facility]06-05-2024 08:55-0400Systolic blood njvwqziv091 mm[Hg]Arelis Lue [facility]02-20-2024 13:02-0500Blood Pressure LocationJENNIFER PACO [facility]02-20-2024 13:02-0500Diastolic blood ptystyys18 mm[Hg]DESTINEE PACO [facility]02-20-2024 13:02-0500Heart rate80 /minJENNIFER PACO [facility]02-20-2024 13:02-0500Respiratory rate16 /minJENNIFER PACO [facility]02-20-2024 13:02-0500Systolic blood egngmyiz774 mm[Hg]DESTINEE PACO [facility]08-02-2023 09:07-0400Blood Pressure LocationKathy Lue [facility]08-02-2023 09:07-0400Diastolic blood bjeyubyv35 mm[Hg]Arelis Lue [facility]08-02-2023 09:07-0400Heart iicc510 /minKathy Lue [facility]08-02-2023 09:07-0400Respiratory rate16 /minKathy Lue [facility]08-02-2023 09:07-0400Systolic blood ufabbkro993 mm[Hg]Arelis Lue [facility]03-17-2023 09:45-0400Blood Pressure LocationKathy Lue [facility]03-17-2023 09:45-0400Diastolic blood gfcfcnol69 mm[Hg]Arelis Lue [facility]03-17-2023 09:45-0400Heart rate93 /minKathy Lue [facility]03-17-2023 09:45-0400Systolic blood avzxisen113 mm[Hg]Arelis Lue [facility]02-22-2019 08:20-0500BMI (Body Mass Index)41.7 kg/c4PflcwEm[facility]02-22-2019 08:20-0500BP Cvmmhsdlg94 mm[Hg][facility] 10-04-2018 08:20-0500BP Xwkevbzn415 mm[Hg][facility]02-22-2019 08:20-9066Szieiy253.6 cmESelect [facility]ty [facility]02-22-2019 08:20-0500Pulse (Heart Rate)83 /minEr[facility]02-22-2019 08:20-0500Pulse Oximetry 97 %[facility]02-22-2019 08:20-0500Respiratory Rate16 /minErrol [facility]02-22-2019 08:20-3120Pvkhmo08.08 kgErryossi [facility]01-24-2019 09:01-0500BMI (Body Mass Index)41.29 kg/v8PbbspzeT[facility]us [facility] Work Phone: 1(551) 519-929801-24-2019 09:01-0500Body Trwbwlfvkei48.01 [degF] [facility] Work Phone: 1(606) 744-786501-24-2019 09:01-0500BP Vqbxkwaex15 mm[Hg][facility] Work Phone: 1(975) 973-721101-24-2019 09:01-0500BP Evtzxysh056 mm[Hg][facility] Work Phone: 1(829) 958-259801-24-2019 09:01-0246Hcdrjk591.6 cmCBluffton [facility] Work Phone: 1(556) 185-754201-24-2019 09:01-0500Pulse (Heart Rate)96 /[facility] Work Phone: 1(794) 960-679701-24-2019 09:01-0500Pulse Aolxahuy95 %[facility] Work Phone: 1(164) 694-250401-24-2019 09:01-0500Respiratory Rate16 /[facility] Work Phone: 1(295) 672-642501-24-2019 09:01-1413Azrqrm17.17 [facility] Work Phone: 1(743) 301-666911-30-2018 08:26-0500BMI (Body Mass Index)42.13 kg/m2 [facility] Work Phone: 1(478) 630-925211-30-2018 08:26-0500BP Qrxlxrchu75 mm[Hg][facility] Work Phone: 1(627) 494-232411-30-2018 08:26-0500BP Htaahrnm754 mm[Hg][facility] Work Phone: 1(912) 492-517711-30-2018 08:26-2964Yxxerr743.3 [facility]EK[facility] Work Phone: 1(901) 955-802111-30-2018 08:26-0500Pulse (Heart Rate)125 /[facility] Work Phone: 1(280) 927-399311-30-2018 08:26-0500Pulse Tnpdejfe75 %[facility] Work Phone: 1(172) 791-273311-30-2018 08:26-0500Respiratory Rate16 /[facility] Work Phone: 1(693) 875-432911-30-2018 08:26-7401Ilnitf02.44 kgSelect [facility] [place] Work Phone: Encounters Encounter DateEncounter TypeCare ProviderFacilityStart: 54-50-8680amlleyhlcm Arelis Velazquez LueFacility:EU [facility]vueStart: 01-14-2025 End: 39-15-2089yxozqjsphpSeths M. LueFacility:[facility] [place]Start: 01-14-2025 End: 03-50-3200Hntdttv encounter procedureArelis Yip [facility] [place] start: 38-95-3939zbithycilnQMKLM SHAMMOFacility:[facility]vueStart: 07-23-2024 End: 30-10-3417ohdifpsfhaYjvmc M. LueFacility:[facility]vueStart: 01-23-2024 End: 03-11-1882Njl-admission assessmentArelis Diggschris [facility] Start: 01-16-2024 End: 54-84-5740Zwtxivs encounter procedureArelis Diggschris [facility] start: 12-12-2023 End: 67-16-3487ixdaauaozuOJPYNGilbert Cohenity:[facility] HospitalStart: 10-02-2023 End: 39-38-9124Tcj Drop offJEARLINEWALTER Perez PACO [facility] Start: 10-02-2023 End: 88-94-1302Nzdswom encounter procedureKATHLEENARLINEIFER E PACO [facility] start: 09-19-2023 End: 28-15-2595Ddbelvz encounter procedureArelis Diggschris [facility] start: 07-03-2023 End: 11-13-4578fqtbqmkdotNWUTGGilbert Cohenity:[facility] HospitalStart: 03-14-2023 End: 27-88-0106Jbcclpo encounter procedureArelis Diggschris [facility] start: 11-13-2022 End: 59-67-5956cuqnhcripaWU JACK HAY .Facility:K4Cffmo: 11-13-2022 End: 25-65-9418Ujprrhu encounter procedureArelis Yip [facility] Start: 11-08-2022 End: 48-69-5963esqhcslaksHY CHARLES HOUSEFacility:K5Igbeg: 48-25-8267Geivjqvyu for preprocedural cardiovascular examinationARELIS YIP .[facility] Start: 39-44-0433Infdjfulj for preprocedural laboratory examinationARELIS YIP . [facility] Hospitaltart: 11-01-2022 End: 42-38-9713pfhojrwpxiBS ILIA HOUSEFacility:V8Otqku: 11-01-2022 End: 15-17-6263Ubfdlclcm for preprocedural cardiovascular examinationDR YOO WORCESTERFacility:P1Hrtej: 10-27-2022 End: 40-71-3756Hwoydfp encounter procedureArelis Yip [facility] [place] Start: 08-26-2022 End: 87-78-0347qrwlghotmoZC CHARLES WORCESTERFacility:U7Rghoh: 11-29-2018 End: 10-13-4467QnddeyFfcvxeq O Davis Work Phone: [facility]art: 10-04-2018 End: 02-37-3647Clakgf encounterHernesto Haque Work Phone: [facility] CardiologyStart: 10-04-2018 End: 79-32-5283Tdsajj outpatient visit 25 minutesHernesto Haque Work Phone: [facility] CardiologyComment on above:Umanzor syndrome (Primary Dx); Aortic arch anomaly; Chronic pulmonary hypertension; Essential hypertension, benign; Inappropriate sinus tachycardia; Mixed hyperlipidemia; Lymphedema; Obstructive sleep apneaStart: 09-12-2018 End: 79-85-9697Iafuepa encounter procedureJ.W. [facility] AmbulatoryStart: 09-12-2018 End: 22-53-0716Fvnedb outpatient visit 15 minutesGro[facility] Work Phone: [facility] Ear, Nose and Throat PhysiciansComment on above:Excessive cerumen in left ear canal (Primary Dx); Abrasion of nose, initial encounterStart: 09-05-2018 End: 47-53-2896Qeqrbbfkv encounterIlia Monson Work Phone: [facility] HospitalCom[facility] on above:Referral Start: 36-03-8014Zriwcpt encounter procedureILIA MONSONSelect [facility]ty [facility] Start: 09-05-2018 End: 34-22-0392Dhqtuf outpatient visit 15 Rakel Monson Work Phone: [facility] HospitalCom[facility] on above:Umanzor's syndrome (Primary Dx); Abnormal thyroid blood test; Mixed hyperlipidemia; Vitamin D deficiencyStart: 08-30-2018 End: 41-87-3943Oesfcg encounterHernesto Haque Work Phone: [facility] CardiologyStart: 08-08-2018 End: 66-07-4950Kjlwrlr encounter procedureHernesto Haque Work Phone: [facility] EchocardiographyComment on above:Arrived Start: 07-25-2018 End: 98-45-7035Hokiecu encounter procedureHernesto Haque Work Phone: [facility] CenterComment on above:Pre- operative cardiovascular examination (Primary Dx)Start: 07-24-2018 End: 40-65-7938Mhnosti encounter procedureRAKETTERING HEALTH MAIN CAMPUSLluvia [facility] AmbulatoryStart: 07-12-2018 End: 64-00-8620Oujsnxi encounter procedureGarcía Rojas Work Phone: [facility] CardiologyStart: 07-12-2018 End: 11-79-9552Ahujwx outpatient new 60 minutesTeresaol Munira Haque Work Phone: [facility] CardiologyComhenry ford hospital on above: Umanzor's syndrome (Primary Dx); Abnormality of aortic arch branch; Tachycardia, unspecified; Morbidobesity; Mixed hyperlipidemia; Obstructive sleep apnea; Lymphedema of right lower extremityStart: 06-28-2018 End: 58-80-9350Cqxfcny encounter procedureChrismyla ValleCheyenne Regional Medical CenterComhenry ford hospital on above:OtherStart: 06-26-2018 End: 53-90-7105Faogpyw encounter procedureChrismyla Danielle [facility] EglestonComment on above:ResultsStart: 06-20-2018 End: 66-94-7947Fjbmype encounter procedureRASAL TREVINO [facility] AmbulatoryStart: 67-44-5642Nvkbaif encounter procedureCHAEastern [facility] Procedures DateProcedureProcedure DetailPerforming ClinicianStart: 99-33-9066Xckksjidszh removal of ureteric stentKathy Lue Start: 81-43-9462Zwsfxvbswus laser lithotripsy of ureteric calculusKathy Lue Start: 54-25-8646Bfmdaqpr of urethraKathy Lue Start: 08-08-2018 End: 76-04-9183YC of thorax with contrastErrol B Garland Work Phone: TonsillectomyKathy Lue Plan of Treatment DateCare ActivityDetailAuthorStart: 23-55-4567Bdlpmkvmfuy [facility] Start: 43-18-9178Xdzrvzwrf vaccinationINFLUENZA VACCINE (Season Ended)[facility]: 03[facility] End: 52-99-0090Ubafcx Visit03/07/2019 Office Visit Cardiovascular Medicine Hernesto Haque II, MD [address] [place] [address] [facility] CardiologyStart: 03-05-2019 End: 12-85-9241Uegauesibu08/24/2019 Office Visit Family Medicine Ilia Monson PA [address] [place] [address] [phone] [facility]Start: 12-11-2018 End: 98-31-4969Dlwegk Visit12/11/2018 Office Visit Otolaryngology Thao Torres MD [facility] [place] [address] [address] [facility] Ear, N[facility] and Th[facility] HospitalStart: 10-04-2018 End: 77-16-7247Gcyvxnpbkj53/22/2019 Office Visit Cardiovascular Medicine Hernesto Haque II, MD [address] [place] [address] [phone] [facility]iologyStart: 09-28-2018 End: 47-62-9333IYLEI PANEL W CALCULATED LDLLIPID PANEL W CALCULATED LDL Routine Mixed hyperlipidemia Expected: 09/28/2018, Expires: 06/28/2019[facility] Work Phone: Comment on above:Expected: 09/28/2018, Expires: 06/28/2019Start: 09-28-2018 End: 96-11-5537ATXDYEX D (25-HYDROXY,TOTAL)VITAMIN D (25-HYDROXY,TOTAL) Routine Vitamin D deficiency Expected: 09/28/2018, Expires: 06/28/2019[facility] Work Phone: Comment on above:Expected: 09/28/2018, Expires: 06/28/2019Start: 09-05-2018 End: 56-83-2307TtvxpjfixoFlyvnBrigham and Women's [facility] OntarioStart: 08-30-2018 End: 09-98-4678Ouxcuqdjho58/18/2019 Office Visit Cardiovascular Medicine Hernesto Haque II, MD [address] [place] [address] [phone] [facility] CardiologyStart: 07-25-2018 End: 22-73-5564FHGSTKMFZE SERUMCREATININE SERUM Routine Pre-operative cardiovascular examination Expected: 07/25/2018, Expires: 07/25/2019[facility] Work Phone: Comment on above:Expected: 07/25/2018, Expires: 07/25/2019Start: 07-15-2018 End: 07-19-2728KUA W/FT4 REFLEXTSH W/FT4 REFLEX Routine Abnormal thyroid blood test Expected: 07/15/2018, Expires: 06/28/2019[facility] Work Phone: Comment on above:Expected: 07/15/2018, Expires: 06/28/2019Start: 07-12-2018 End: 97-36-6457OP of thorax with contrastCT CHEST WITH CONTRAST Routine 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 Expected: 07/12/2018, Expires: 07/12/2019[facility] Work Phone: Comment on above:Expected: 07/12/2018, Expires: 07/12/2019Start: 07-12-2018 End: 57-70-0591Unvktwkrik77/30/2018 Office Visit Cardiovascular Medicine Hernesto Haque II, MD [address] [place], [place] [id number] [facility] CardiologyStart: 25-81-6578Jtszffrkm vaccinationINFLUENZA VACCINE (#1)[facility] Work Phone: Start: 53-30-6112Nqfgujmkc vaccination givenSEQUENTIAL INFLUENZA VACCINE (#1)[facility]HealthStart: 43-12-6843Umosomhnzdnxv conjugate vaccinationBellevue Hospital Work Phone: Start: 48-53-4815Oeujsuuntpt for human papillomavirus [facility]HealthStart: 76-11-9031ELE screeningHIV SCREENING DISCUSSIONBellevue Hospital Work Phone: Start: 17-74-0225Ijnrwgvzj vaccinationBellevue Hospital Work Phone: Start: 83-94-8561Ugmnmiyjpnh for human papillomavirus HPV VACCINE ADOL (1 - Female 3-dose series)[facility] Work Phone: Start: 85-33-8812RPDX/TDAP/TD VACCINE (1 - Tdap) DTAP/TDAP/TD VACCINE (1 - Tdap)[facility] Work Phone: Start: 42-53-2163Qdhyfzc, diphtheria and acellular pertussis vaccinationDTAP VACCINES (1 - Tdap)[facility] CarolinaHealthStart: 2002 Hepatitis A immunizationBellevue Hospital Work Phone: Start: 65-13-9583Czolegp-mumps-rubella vaccinationBellevue Hospital Work Phone: Start: 90-11-8806Ykydyjskrrp poliovirus vaccine (product)[facility] Work Phone: Start: 18-88-8424Opfyoizbx B vaccinationBellevue Hospital Work Phone: Start: 75-73-5233Nbkmihk vaccinationTETANUS EVERY 10 YROhioHealthAmbulatory ECGPR ECG (OFFICE READ ONLY) Routine 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 Ordered: 07/12/2018[facility] Work Phone: Comment on above:Ordered: 07/12/2018Transthoracic echocardiographyECHOCARDIOGRAM Routine 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 Ordered: 07/12/2018[facility] Work Phone: Comment on above:Ordered: 07/12/2018 Immunizations Immunization DateImmunizationNotesCare ZaekdegzPuiafxot15-92-0292CGBW-XcH-1 (COVID-19) mRNA BNT-162b2 vaxKathy Lue [facility] [facility]07-30-2021SARS-CoV-2 (COVID-19) mRNA BNT-162b2 vaxKathy Lue [facility]03-27-2020HPV, unspecified formulationKathy Lue [facility]2019HPV, unspecified formulationKathy Lue [facility]09-24-2019HPV, unspecified formulationKathy Lue [facility]09-17-2019hepatitis A vaccine, unspecified formulationKathy Lue [facility]09-17-2019meningococcal ACWY vaccine, unspecified formulationKathy Lue [facility]08-29-2019influenza virus vaccine, unspecified formulationKathy Lue [facility]01-24-2014hepatitis A vaccine, unspecified formulationKathy Lue [facility]01-24-2014meningococcal ACWY vaccine, unspecified formulationKathy Lue [facility]01-24-2014tetanus toxoid, reduced diphtheria toxoid, and acellular pertussis vaccine, adsorbedKathy Lue [facility]08-10-2006diphtheria, tetanus toxoids and acellular pertussis vaccine Arelis Lue [facility]08-10-2006measles, mumps and rubella virus vaccineKathy Lue [facility]08-10-2006poliovirus vaccine, unspecified formulationKathy Lue [facility] [place] 088342-08-2004influenza, wholeKathy Lue [facility] [place] 088341-17-2003influenza virus vaccine, unspecified formulationKathy Lue [facility] [place] 088340-16-2003diphtheria, tetanus toxoids and acellular pertussis vaccine Arelis Lue [facility] [place] 088340-16-2003measles, mumps and rubella virus vaccineKathy Lue [facility]07-01-2002DTaP, unspecified formulationKathy Lue [facility]07-01-2002Hib, unspecified formulationKathy Lue [facility]07-01-2002poliovirus vaccine, unspecified formulationKathy Lue [facility]04-29-2002DTaP, unspecified formulationKathy Lue [facility]04-29-2002poliovirus vaccine, unspecified formulationKathy Lue [facility]02-27-2002DTaP, unspecified formulationKathy Lue [facility]02-27-2002poliovirus vaccine, unspecified formulationKathy Lue [facility] Payers DatePayer CategoryPayerPolicy [id number] [id number] [id number] [id number] 2.840.1.690103.3.57[id number] 2.0.1.712422.3.57[id number] 2.0.1.213763.3.57[id number] 2.0.1.171172.3.57[id number] 2.0.1.231549.3.57[id number] 2.0.1.261658.3.57[id number] 2.0.1.650961.3.57[id number] 2.0.1.533618.3.57[id number] 2..1.866217.3.57[id number] 2.0.1.025680.3.57[id number] 2.0.1.263121.3.57[id number] 2.840.1.556570.3.57[id number] Social History DateTypeDetailFacilityStart: 07-12-2018 End: 80-31-1339Qgpzepr smoking status NHISNever smokerExec[facility] Assigned At BirthNot on [facility] Work Phone: Tobacco smoking statusNeverExec[facility] of [facility] Center[facility]ilaex Assigned At BirthFeUK Healthcareexual OrientationExec[facility] start: 30-24-2477UmiJegkqd (finding)[facility] Functional Status YditGdpvtbsuftZwyvntIjlrkcox64-14-2604Uyreuqsgem StatusN/AExec[facility] of [facility]02-20-2024Functional StatusN/A[facility]08-02-2023Functional StatusN/A [facility]03-17-2023Functional StatusN/A[facility] Clinical Notes 10-27-2022 to 01-14-2025 Note Date & [id number] Hospital Discharge instructions Patient Education 01/14/2025 11:55:56 Dietary Guidelines to Help Prevent Kidney Stones Dietary Guidelines to Help Prevent Kidney Stones Kidney stones are deposits of minerals and salts that form inside your kidneys. Your risk of developing kidney stones may be greater depending on your diet, your lifestyle, the medicines you take, and whether you have certain medical conditions. Most people can lower their risks of developing kidney stones by following these dietary guidelines. Your dietitian may give you more specific [...] about 300 mg of calcium at each meal.Foods that contain 200 500 mg of calcium a serving include: ?8 oz (237 mL) of milk, foejboe-dewzxfafxhbw-pjlor milk, and calcium- fortifiedfruit juice. Calcium-fortified means that calcium has been [...] the table and allow each person to addtheir own salt to taste. Use vegetable protein, such as beans, textured vegetable protein (TVP), or tofu, instead of meat inpasta, casseroles, and soups. Meal planning Eat less salt, if told by your dietitian. To do this: ?Avoid eating processed or pre-made food. ?Avoid eating fast food. Eat less animal protein, including cheese, meat, poultry, or fish, if told by your dietitian. To dothis: ?Limit the number of times you have meat, poultry, fish, or cheese each week. Eat a diet free of meat at least 2 days a week. ?Eat only one serving each day of meat, poultry, fish, or seafood. ?When you prepare animal proteins, cut pieces into small portion sizes. For most meat and fish, oneserving is about the size of the palm of your hand. Eat at least five servings of fresh fruits and vegetables each day. To do this: ?Keep fruits and vegetables on hand for snacks. ?Eat one piece of fruit or a handful of berries with breakfast. ?Have a salad and fruit at lunch. ?Have two kinds of vegetables at dinner. You may be told to limit foods that are high in a substance called oxalate. These include: ?Spinach (cooked), rhubarb, beets, sweet potatoes, and Irish chard. ?Peanuts. ?Potato chips, ugandan fries, and baked potatoes with skin on. ?Nuts and nut products. ?Chocolate. If you regularly take a diuretic medicine, make sure to eat at least 1 or 2 servings of fruits or vegetables that are high in potassium each day. These include: ?Avocado. ?Banana. ?Cross, prune, carrot, or tomato juice. ?Baked potato. ?Cabbage. ?Beans and split peas. Lifestyle Drink enough fluid to keep your urine pale yellow. This is the most important thing you can do. Spread your fluid intake throughout the day. If you drink alcohol: ?Limit how much you have to: ?0 1 drink a day for women who are not . ?0 2 drinks a day for men. ?Know how much alcohol is in your drink. [...] of your kidney stones, you may be told: ?Do not take high-dose supplements of vitamin C (1,000 mg a day or more). ?To take a calcium supplement. ?To take a daily probiotic supplement. ?To take other supplements such as magnesium, fish oil, or vitamin B6. Take rxfn-yma-nzgltkk and prescription medicines only as told by [...] sausages, meat loaves, and hot dogs. Dairy Cheeses. Beverages Regular soft drinks. Regular vegetable juice. Seasonings and condiments Seasoning blends with salt. Salad dressings. Soy sauce. Ketchup. Barbecue sauce. Other foods Canned soups. Canned pasta sauce. Casseroles. Pizza. Lasagna. Frozen meals. Potato chips. Georgian fries. The items listed above may not be a complete list of foods and beverages you should limit. Contact a dietitian for more information. What foods should I avoid? Talk to your dietitian about specific foods you should avoid based on the type of kidney stones youhave and your overall health. Fruits Grapefruit. The item listed above may not be a complete list of foods and beverages you should avoid. Contact adietitian for more information. Summary Kidney stones are [...] with your health care provider. Document Revised: 11/09/2022 Document Reviewed: 11/09/2022 [employer] Patient Education 2023 [employer]. Follow Up Care 07/23/2024 09:48:00 With:Phi MTZ, PASQUALE Romo, URO Address: When: Unknown [facility] 06-04-2025 NotePatient Education Nephrology Dietary Guidelines to Help Prevent Kidney Stones Kidney stones are deposits of minerals and salts that form inside your kidneys. Your risk of developing kidney stones may be greater depending on your diet, your lifestyle, the medicines you take, and whether you have certain medical conditions. Most people can lower their risks of developing kidney stones by following these dietary guidelines. Your dietitian may give you more specific instructions depending on your overall health and the type of kidney stones you tend to develop. What are tips for following this plan? Reading food labels ??? Choose foods with no salt added or low-salt labels. Limit your salt (sodium) intake to lessthan 1,500 mg a day. ??? Choose foods with calcium for each meal and snack. Try to eat about 300 mg of calcium at each meal. Foods that contain 200?500 mg of calcium a serving include: ? 8 oz (237 mL) of milk, pxhevno-lugmuhhxrlpa-eplex milk, and calcium- fortifiedfruit juice. Calcium-fortified means that calcium has been [...] much calcium is recommended for you. Shopping ??? Buy plenty of fresh fruits and vegetables. Most people do not need to avoid fruits and vegetables, even if these foods contain nutrients that may contribute to kidney stones. ??? When shopping for convenience foods, choose: ? Whole pieces of fruit. ? Pre-made salads with dressing on the side. ? Low-fat fruit and yogurt smoothies. ??? Avoid buying frozen meals or prepared deli foods. These can be high in sodium. ??? Look for foods with live cultures, such as yogurt and kefir. ??? Choose high-fiber grains, such as whole-wheat breads, oat bran, and wheat cereals. Cooking ??? Do not add salt to food when cooking. Place a salt shaker on the table and allow each person toadd their own salt to taste. ??? Use vegetable protein, such as beans, textured vegetable protein (TVP), or tofu, instead of meat in pasta, casseroles, and soups. Meal planning ??? Eat less salt, if told by your dietitian. To do this: ? Avoid eating processed or pre-made food. ? Avoid eating fast food. ??? Eat less animal protein, including cheese, meat, poultry, or fish, if told by your dietitian. To do this: ? Limit the number of times you have meat, poultry, fish, or cheese each week. Eat a diet free of meat at least 2 days a week. ? Eat only one serving each day of meat, poultry, fish, or seafood. ? When you prepare animal proteins, cut pieces into small portion sizes. For most meat and fish, one serving is about the size of the palm of your hand. ??? Eat at least five servings of fresh fruits and vegetables each day. To do this: ? Keep fruits and vegetables on hand for snacks. ? Eat one piece of fruit or a handful of berries with breakfast. ? Have a salad and fruit at lunch. ? Have two kinds of vegetables at dinner. ??? You may be told to limit foods that are high in a substance called oxalate. These include: ? Spinach (cooked), rhubarb, beets, sweet potatoes, and Irish chard. ? Peanuts. ? Potato chips, ugandan fries, and baked potatoes with skin on. ? Nuts and nut products. ? Chocolate. ??? If you regularly take a diuretic medicine, make sure to eat at least 1 or 2 servings of fruits or vegetables that are high in potassium each day. These include: ? Avocado. ? Banana. ? Cross, prune, carrot, or tomato juice. ? Baked potato. ? Cabbage. ? Beans and split peas. Lifestyle ??? Drink enough fluid to keep your urine pale yellow. This is the most important thing you can do.Spread your fluid intake throughout the day. ??? If you drink alcohol: ? Limit how much you have to: ? 0?1 drink a day for women who are not . ? 0?2 drinks a day for men. ? Know how much alcohol is in your drink. In the [place] one drink equals one 12 oz bottle of beer (355 mL), one 5 oz glass of wine (148 mL), or one 1? oz glass of hard liquor (44 mL). ??? Lose weight if told by your health care provider. Work with your dietitian to find an eating plan and weight loss strategies that work best for you. General information ??? Talk to your health care provider and dietitian about taking daily supplements. Depending on your health and the cause of your kidney stones, you may be told: ? Do not take high-dose supplements of vitamin C (1,000 mg a day or more). ? To take a calcium supplement. ? To take a daily probiotic supplement. ? To take other supplements such as magnesium, fish oil, or vitamin B6. ??? Take talj-ebj-jolyfiq and prescription medicines only as told by your health (more content not included)...[facility]12-11-2024 NotePatient Education Obstetrics and Gynecology Kegel Exercises Kegel [...] muscles. These are the same muscles you squeezewhen you try to stop the flow of [...] provider. Document Revised: 12/08/2021 Document Reviewed: 12/08/2021 [employer] Patient Education ? 2023 [facility] 01-16-2024 Hospital Discharge instructions Patient Education 01/16/2024 10:15:19 Kegel Exercises [...] muscles. These are the same muscles you squeezewhen you try to stop the flow of [...] tight lift in your rectal area. If youare a female, you should also feel a [...] provider. Document Revised: 12/08/2021 Document Reviewed: 12/08/2021 [employer] Patient Education 2022 [employer]. Follow Up Care 01/14/2024 11:04:14 With:Phi MTZ, PASQUALE Romo, URO Address: [address] [place] [phone] When: Unknown [facility] 02-20-2024 Hospital Discharge instructions Patient Education 10/02/2023 14:03:01 Kidney Stones, Dhfo-xp-Vtrd Kidney Stones Kidney stones are rock-like masses [...] Follow these instructions at home: Medicines Take btzy-hty-nodexdm and prescription medicines only as told by [...] provider. Document Revised: 04/03/2022 Document Reviewed: 04/03/2022 [employer] [place] Patient Education 2022 [employer]. Follow Up Care 09/19/2023 09:59:17 With:DESTINEE ANTONIO PA-C, URL Address: When:1 year [facility] 08-02-2023 Hospital Discharge instructions Patient Education 03/14/2023 09:49:19 Dietary Guidelines [...] about 300 mg of calcium at each meal.Foods that contain 200 500 mg of calcium a serving include: ?8 oz (237 mL) of milk, zagxkuh-tespgnztywdl-yagmk milk, and calcium- fortifiedfruit juice. Calcium-fortified means that calcium has been [...] the table and allow each person to addhis or her own salt to taste. Use vegetable protein, such as beans, textured vegetable protein (TVP), or tofu, instead of meat inpasta, casseroles, and soups. Meal planning Eat less salt, if told by your dietitian. To do this: ?Avoid eating processed or pre-made food. ?Avoid eating fast food. Eat less animal protein, including cheese, meat, poultry, or fish, if told by your dietitian. To dothis: ?Limit the number of times you have [...] ?Spinach (cooked), rhubarb, beets, sweet potatoes, and Irish chard. ?Peanuts. ?Potato chips, ugandan fries, and baked potatoes with skin on. ?Nuts and nut products. ?Chocolate. If you regularly take a diuretic medicine, make sure to eat at least 1 or 2 servings of fruits or vegetables that are high in potassium each day. These include: ?Avocado. ?Banana. ?Cross, prune, carrot, or tomato juice. ?Baked potato. [...] taking daily supplements. You may be told thefollowing depending on your health and the cause of your kidney stones: ?Not to take supplements with vitamin C. ?To take a calcium supplement. ?To take a daily probiotic supplement. ?To take other supplements such as magnesium, fish oil, or vitamin B6. Take dgkv-smw-gjzskry and prescription medicines only as told by [...] Casseroles. Pizza. Lasagna. Frozen meals. Potato chips. Georgian fries. The items listed above may not be a complete list of foods and beverages you should limit. Contact a dietitian for more information. What foods should I avoid? Talk to your dietitian about specific foods you should avoid based on the type of kidney stones youhave and your overall health. Fruits Grapefruit. The item listed above may not be a complete list of foods and beverages you should avoid. Contact adietitian for more information. Summary Kidney stones are [...] provider. Document Revised: 04/10/2022 Document Reviewed: 04/10/2022 [employer] Patient Education 2022 [employer]. Follow Up Care 11/13/2022 09:26:52 With:Arelis Yip MD, URL, URO Address: When:Within 6 Month(s) Comments:w/ KUB and RASHEEDA and 24 hr urine [facility] 08-02-2023 Hospital Discharge instructions Follow Up Care 03/14/2023 09:44:41 With:Arelis Yip MD, URL, URO Address: [address] [phone] When: Unknown [facility] 04-03-2023 Hospital Discharge instructions Patient Education 11/13/2022 09:24:55 Dietary Guidelines [...] about 300 mg of calcium at each meal.Foods that contain 200 500 mg of calcium [...] Talk to your dietitian about how much calciumis recommended for you. Shopping Buy plenty of [...] the table and allow each person to addhis or her own salt to taste. Use [...] fish, if told by your dietitian. To dothis: ?Limit the number of times you have [...] include: ?Spinach. ?Rhubarb. ?Beets. ?Potato chips and ugandan fries. ?Nuts. If you regularly take a diuretic medicine, make sure to eat at least 1 2 fruits or vegetables high in potassium each day. These include: ?Avocado. ?Banana. ?Cross, prune, carrot, or tomato juice. ?Baked potato. [...] fish. Salted or cured meats. Deli meats. Hotdogs. Sausages. Dairy Cheese. Beverages Regular soft drinks. Regular vegetable juice. Seasonings and other foods Seasoning blends with salt. Salad dressings. Canned soups. Soy sauce. Ketchup. Barbecue sauce. Canned pasta sauce. Casseroles. Pizza. Lasagna. Frozen meals. Potato chips. Georgian fries. Summary You can reduce your risk of kidney stones by making changes to your diet. The most important thing you can do is drink enough fluid. You should drink enough fluid to keep your urine clear or pale yellow. Ask your health care provider or dietitian how much protein from animal sources you should eat eachday, and also how much salt and calcium you should have each day. This information is not intended to replace advice given to you by your health care provider. Make sure you discuss any questions you have with your health care provider. Document Released: 11/24/2011 Document Revised: 11/19/2019 Document Reviewed: 07/10/2017 [employer] Patient Education 2019 [employer]. 11/13/2022 09:24:55 EU - Cystoscopy with Stent [...] Up Care 11/10/2022 09:26:19 With:Arelis Yip Address: [address] [place] [phone] Business (1) [facility] [address] Hern[address]dez, [address] [phone] Business (1) When: Unknown Comments:Office to schedule follow up in 6-8 wks with renal US, KUB and 24 hr urine stone workup, labs [facility]03-22-2023 NoteEXAMINATION: XR CHEST 2 V HISTORY: Pre-surgery evaluation COMPARISON: XR chest 07/10/2013 FINDINGS: LUNGS: No significant pulmonary parenchymal abnormalities. VASCULATURE: No increased pulmonary vasculature. PLEURA: No pneumothorax, effusion, or pleural thickening. CARDIAC: No cardiomegaly or cardiac silhouette abnormality. MEDIASTINUM: No visible mass or adenopathy. BONES: No fracture or visible bone lesion. OTHER: Negative. IMPRESSION: 1. No acute cardiopulmonary process. Electronically authenticated by: DARIEL CHRISTINE Date: 2022-11-01 09:20[id number] Hospital Discharge instructions Patient Education 10/27/2022 10:43:32 Dietary Guidelines [...] about 300 mg of calcium at each meal.Foods that contain 200 500 mg of calcium [...] Talk to your dietitian about how much calciumis recommended for you. Shopping Buy plenty of [...] the table and allow each person to addhis or her own salt to taste. Use [...] fish, if told by your dietitian. To dothis: ?Limit the number of times you have [...] include: ?Spinach. ?Rhubarb. ?Beets. ?Potato chips and ugandan fries. ?Nuts. If you regularly take a diuretic medicine, make sure to eat at least 1 2 fruits or vegetables high in potassium each day. These include: ?Avocado. ?Banana. ?Cross, prune, carrot, or tomato juice. ?Baked potato. [...] fish. Salted or cured meats. Deli meats. Hotdogs. Sausages. Dairy Cheese. Beverages Regular soft drinks. Regular vegetable juice. Seasonings and other foods Seasoning blends with salt. Salad dressings. Canned soups. Soy sauce. Ketchup. Barbecue sauce. Canned pasta sauce. Casseroles. Pizza. Lasagna. Frozen meals. Potato chips. Georgian fries. Summary You can reduce your risk of kidney stones by making changes to your diet. The most important thing you can do is drink enough fluid. You should drink enough fluid to keep your urine clear or pale yellow. Ask your health care provider or dietitian how much protein from animal sources you should eat eachday, and also how much salt and calcium you should have each day. This information is not intended to replace advice given to you by your health care provider. Make sure you discuss any questions you have with your health care provider. Document Released: 11/24/2011 Document Revised: 11/19/2019 Document Reviewed: 07/10/2017 [employer] Patient Education 2020 [employer]. Follow Up Care 09/07/2022 10:54:19 With:Arelis Yip MD, REKHA, URO Address: When: Unknown [facility] Evaluation + Plan note No data available for this section [facility] Evaluation + Plan note Future Appointments Appointment Date:01/17/2023 08:45:00 AM Scheduled Provider:Arelis Yip MD Location:[facility] App[facility]ments Appointment Date:09/19/2023 08:45:00 AM Scheduled Provider:Arelis Yip MD Location:[facility] Appointment Type:URO Office Visit Diagnostic Tests Pending * Uric Acid 03/14/23 * PTH Intact 03/14/23 [facility] evaluation + Plan note Future Appointments Appointment Date:10/02/2023 12:40:00 PM Scheduled Provider:DESTINEE ANTONIO PA-C Location:[facility] Appointment Type:URO Office Visit [facility] evaluation + Plan note Future Appointments Appointment Date:10/07/2024 09:00:00 AM Scheduled Provider:DESTINEE ANTONIO PA-C Location:[facility] Appointment Type:URO Office Visit [facility] evaluation + Plan note Future Appointments Appointment Date:10/07/2024 09:00:00 AM Scheduled Provider:DESTINEE ANTONIO PA-C Location:[facility] Appointment Type:URO Office Visit Diagnostic Tests Pending * Urine Culture [facility]02[facility]23 [facility] Future App[facility]ments Appointment Date:01/23/2024 10:00:00 AM Scheduled Provider: Location:.[facility] [place] Appointment Type:PT Pelvic Floor/UI Eval () Appointment Date:07/23/2024 08:45:00 AM Scheduled Provider:Arelis Yip MD Location:[facility] Appointment Type:URO Office Visit [facility] evaluation + Plan note Future Appointments Appointment Date:07/23/2024 08:45:00 AM Scheduled Provider:Arelis Yip MD Location:[facility] Future Appointments Appointment Date:07/22/2025 10:00:00 AM Scheduled Provider:Arelis Yip MD Location:[facility] Appointment Type:URO Office Visit Future Scheduled Tests Radiology* US Renal 07/13/25 [facility] Discharge instructions No data available for this section [facility] No data available for this section [facility] Reason for Referral StatusReasonSpecialtyDiagnoses / ProceduresReferred By ContactReferred To ContactNew 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 Procedures CT CHEST WITH CONTRAST VT CAT SCAN OF CHEST CONTRAST Hernesto Haque II, MD [address] [place] [address] StatusReasonSpecialtyDiagnoses / ProceduresReferred By ContactReferred To ContactNew 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 Tuberculosis: no 38. Vasculitis: no 39. CLOSING MACHINE OPERATOR/OB: no 40. Obesity: yes 41. Sleep apnea: [...] as yet. Her mother reports that her graphic production artist wants toput her on hormone replacement therapy. [...] potentially adverse cardiovascular effects, however he patient's graphic production artist deems this to be necessary at this [...] no documented in this encounter* Lashae Hastings STRATEGIES ANALYST - 09/14/2018 6:34 PM EST [facility] [...] residual perforation noted. Assessment and Plan: Keyona Atkisn is a 18 y.o. y/o female who [...] [place] tympan[place]. Patient currently takes Claritin and Singulair for [...] Lashae Hastings CNP in this encounter Assessments DiagnosisTurner's syndrome - Primary Gonadal dysgenesis Abnormality of aortic arch branchTachycardia, unspecifiedMorbid obesityMixed hyperlipidemiaObstructive sleep apnea Obstructive sleep apnea (adult) (pediatric) Lymphedema of right lower extremityDiagnosisPre-operative cardiovascular examination - PrimaryDiagnosisVitamin D deficiency - Primary Unspecified vitamin D deficiency Mixed hyperlipidemiaAbnormal thyroid blood test Nonspecific abnormal results of thyroid function study DiagnosisTurner's syndrome Gonadal dysgenesis Abnormality of aortic arch branchDiagnosis Umanzor's syndrome- Primary Gonadal dysgenesis Abnormal thyroid [...] for Visit (unrecogniz ed section and content) ReasonCommentsNew PatientReferral from Shawn Monson for HTN and arotic arch anomalyStatusReasonSpecialtyDiagnoses / ProceduresReferred By ContactReferred To ContactClosedCardiovascular Medicine Diagnoses Essential hypertension Aortic arch anomaly Ilia Monson, NILESH [address] [place] [address] García Rojas, DO [address] [place] [address] ReasonCommentsResultsReasonCommentsOtherStatusReasonSpecialtyDiagnoses / ProceduresReferred By ContactReferred To Contact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 Procedures ECHOCARDIOGRAM Hernesto Haque II, MD [address] [place] [address] StatusReasonSpecialtyDiagnoses / ProceduresReferred By ContactReferred To Contact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 Procedures CT CHEST WITH CONTRAST VT CAT SCAN OF CHEST CONTRAST Hernesto Haque II, MD [address] [place] [address] DoamyvTmbdtvkwRxwxul-[id number] month follow-up Umanzor Syndrome, OSAReasonCommentsMedication Refill INFORMATION SOURCE (unrecogn ized section and content) DATE CREATED AUTHOR 09/14/2018 [facility] DATE CREATED AUTHOR AUTHOR'S ORGANIZ ATION 04/28/2019 [facility] DATE CREATED AUTHOR AUTHOR'S ORGANIZ ATION 05/25/2019 [facility] DATE CREATED AUTHOR AUTHOR'S ORGANIZ ATION 05/25/2019 [facility] DATE CREATED AUTHOR AUTHOR'S ORGANIZ ATION 08/15/2019 [facility] DATE CREATED AUTHOR AUTHOR'S ORGANIZ ATION 04/08/2020 [facility] DATE CREATED AUTHOR AUTHOR'S ORGANIZ ATION 11/18/2022 [facility] DATE CREATED AUTHOR AUTHOR'S ORGANIZ ATION 12/20/2023 [facility] DATE CREATED AUTHOR AUTHOR'S ORGANIZ ATION 01/16/2025 [facility] Patient Care team informatio n (unrecognized section and content) Personnel Name: Reza Ilia WOODWARD Address: Address: [address] [place] [address] Personnel Name: Reza DO Ilia Shy Address: Address: [address] [place] [address]- Personnel Name: Reza WOODWARD Ilia Shy Address: Address: [address] [place] [address] Personnel Name: REZA WOODWARD ILIA Shy Address: Address: [address] [place] [id number] Personnel Name: MIKAELA MARCH CNP Address: Address: [address] [place] [address] Personnel Name: MIKAELA MARCH CNP Address: Address: [address] [place] [address] Personnel Name: NONE, XXXX Address: Address: [facility] Personnel Name: NONE, XXXX Address: Address: [facility] Personnel Name: NONE, XXXX Address: [facility] FOR RECORDS PERTAINING TO PATIENTS WHO [...] BE BASED ON THE PRIMARY CLINICAL RECORDS. [facility] [employer] [facility]. provides no warranty or guarantee of the accuracy or completeness of information in this document.
== END 2025-07-06 09:10 | disposition home or self-care (01) ==
LOC: US 09:09
PROVIDERS: Visit Provider Urology
DX: N20.0 Calculus of kidney (principal)
CPT/HCPCS: 74018; 76775